=== PATIENT | male | born 1935 | race Hispanic/Latino ===

== ENCOUNTER 2017-09-09 13:58 | Inpatient (IN) | payer OTHER ==
--- NOTE | 2017-09-09 15:52 | RAD REPORT ---
EXAM DESCRIPTION: RAD - Chest Single View - 09/09/2017 3:38 pm CLINICAL HISTORY: Shortness of breath COMPARISON: 07/05/2026 FINDINGS: Portable technique limits examination quality. Calcified granuloma are present in left lung. The lungs are clear of acute infiltrate. The heart is n ormal in size. No displaced fractures. IMPRESSION: No acute intrathoracic process suspected.
--- NOTE | 2017-09-09 16:27 | EKG ---
Test Date: 2017-09-09 Test Time: 15:14:41 Ski Topper: MARCK MEASUREMENT RESULTS: Intervals: Rate: 64 UT: 160 QRSD: 98 QT: 446 QTc: 460 Rutledge: P: 61 UT: 160 QRS: 36 T: 83 INTERPRETIVE STATEMENTS: Normal sinus rhythm Normal ECG Compared to ECG 07/04/2016 10:00:54 No significant changes Electronically Signed On 09-09-17 16:26:39 CDT by Nickolas Jiang
[2017-09-09] MEDS ORDERED: NA CHLORIDE 0.9% 500 ML ONE (17:01)
[2017-09-09 17:22] LABS: Urine Bacteria 20-50 /HPF (NONE SEEN); Urine Culture Reflex Order NOT NEEDED; Urine Mucus NS /HPF (NONE SEEN)
[2017-09-09 17:33] LABS: Absolute Monocytes 0.9 K/uL (0.1-1.3); Absolute Neutrophil 10.3 K/uL (1.8-8.0); Basophils % 0.8 % (0-1.3); Eosinophils % 4.3 % (0-4.4); Lymphocytes % 14.6 % (15.3-44.8); MCH 28.4 pg (27.0-35.0); MCV 88.4 fL (80-100); MPV 7.8 fL (7.6-11.3); Monocytes % 6.7 % (3.3-12.3); RBC Red Blood Cell Count 4.64 M/uL (4.33-5.43)
[2017-09-09 17:36] LABS: Potassium 4.8 mEq/L (3.6-5.0)
[2017-09-09 17:42] LABS: Albumin 3.5 g/dL (3.2-5.5); Bilirubin Direct 0.1 mg/dL (0-0.2); Bilirubin Total 0.4 mg/dL (0.3-1.2); Protein, Total 7.7 g/dL (6.0-8.3)
[2017-09-09 17:58] LABS: Urine Blood 1+ (NEG); Urine Glucose 1+ (NEG); Urine Protein 3+ (NEG)
--- NOTE | 2017-09-09 18:20 | EDPHYS ---
Physician Documentation [facility] Name: Nayla Greenberg Age: 82 yrs Sex: Male : 1935 Arrival Date: 09/09/2017 Time: 14:11 Bed 19 Private MD: ED Physician Ricky Gao HPI: 09/09 18:14 This 82 yrs old Male presents to ER via EMS with complaints of Dizziness. rn 18:14 The patient presents with dizziness. Onset: The symptoms/episode began/occurred this rn morning. Modifying factors: The symptoms are alleviated by nothing, the symptoms are aggravated by movement of head, changing position. Associated signs and symptoms: Pertinent negatives: abdominal pain, chest pain, seizure, syncope, tingling, vomiting. Severity of symptoms: At their worst the symptoms were moderate in the emergency department the symptoms are unchanged. The patient has experienced similar episodes in the past. 18:14 Pt woke up dizzy and lightheaded, felt like was going to pass out, no syncope, [facility] . Historical: - Allergies: 14:00 No Known Allergies; rb1 - Home Meds: 14:00 Lipitor Oral [Active]; rb1 15:20 metformin 1,000 mg oral tab 2 times per day [Active]; Lasix 40 mg oral tab once daily aj1 [Active]; amlodipine 10 mg tab 1 tab once daily [Active]; Vitamin D Oral 400 unit daily [Active]; gabapentin 300 mg oral cap 1 cap at bedtime [Active]; metoprolol tartrate 25 mg Oral tab 0.5 tab 2 times per day [Active]; multivitamin oral oral daily [Active]; - PMHx: 14:00 Diabetes - NIDDM; Hypertension; muscle atrophy; Hyperlipidemia; rb1 - Immunization history:: Adult Immunizations not up to date. - Social history:: Smoking status: Patient/guardian denies using tobacco. - Family history:: not pertinent. - Hospitalizations: : No recent hospitalization is reported. ROS: 18:14 Constitutional: Negative for fever, chills, and weight loss, Eyes: Negative for injury, rn pain, redness, and discharge, Neck: Negative for injury, pain, and swelling, Cardiovascular: Negative for chest pain, palpitations, and edema, Respiratory: Negative for shortness of breath, cough, wheezing, and pleuritic chest pain, Abdomen/GI: Negative for abdominal pain, nausea, vomiting, diarrhea, and constipation, Back: Negative for injury and pain, MS/Extremity: Negative for injury and deformity, Skin: Negative for injury, rash, and discoloration, Neuro: Negative for headache, numbness, tingling, and seizure. Exam: 18:14 Constitutional: This is a well developed, well nourished patient who is awake, alert, rn and in no acute distress. Head/Face: Normocephalic, atraumatic. Eyes: Pupils equal round and reactive to light, extra-ocular motions intact. Lids and lashes normal. Conjunctiva and sclera are non-icteric and not injected. Cornea within normal limits. Periorbital areas with no swelling, redness, or edema. Neck: Trachea midline, no thyromegaly or masses palpated, and no cervical lymphadenopathy. Supple, full range of motion without nuchal rigidity, or vertebral point tenderness. No Meningismus. Cardiovascular: Regular rate and rhythm with a normal S1 and S2. No gallops, murmurs, or rubs. Normal PMI, no JVD. No pulse deficits. Respiratory: Lungs have equal breath sounds bilaterally, clear to auscultation and percussion. No rales, rhonchi or wheezes noted. No increased work of breathing, no retractions or nasal flaring. Abdomen/GI: Soft, non-tender, with normal bowel sounds. No distension or tympany. No guarding or rebound. No evidence of tenderness throughout. MS/ Extremity: Pulses equal, no cyanosis. Neuro: Awake, alert, paraplegic, normal upper strength Vital Signs: 14:00 BP 158 / 71; Pulse 68; Resp 15; Pulse Ox 98% on R/A; rb1 15:09 BP 142 / 69; Pulse 70; Resp 19; Pulse Ox 100% ; aj1 17:16 BP 151 / 80; Pulse 65; Resp 18; Pulse Ox 100% on R/A; aj1 18:15 BP 157 / 79; Pulse 66; Resp 17; Pulse Ox 100% on R/A; aj1 20:14 BP 154 / 73; Pulse 70; Resp 20; Pulse Ox 97% on R/A; aj1 21:23 BP 145 / 85; Pulse 69; Resp 18; Pulse Ox 99% ; aj1 MDM: 15:09 Patient medically screened. rn 18:14 Differential diagnosis: generalized weakness, hypovolemia, idiopathic dizziness, rn near-syncope, UTI. Data reviewed: vital signs, nurses notes, lab test result(s), EKG, radiologic studies, plain films, and as a result, I will admit patient. Counseling: I had a detailed discussion with the patient and/or guardian regarding: the historical points, exam findings, and any diagnostic results supporting the discharge/admit diagnosis, lab results, radiology results, the need for further work-up and treatment in the hospital. Response to treatment: the patient's symptoms have mildly improved after treatment, and as a result, I will admit patient. Admission orders: after a detailed discussion of the patient's condition and case, the admit orders are written by me. 09/09 15:18 Order name: CBC with Diff; Complete Time: 18:09 rn 09/09 15:18 Order name: Basic Metabolic Panel; Complete Time: 18:09 rn 09/09 15:18 Order name: Urine Culture rn 09/09 15:18 Order name: Urine Microscopic Only; Complete Time: 18:09 rn 09/09 15:19 Order name: Hepatic Function; Complete Time: 18:09 rn 09/09 15:19 Order name: Lipase; Complete Time: 18:09 rn 09/09 15:18 Order name: IV Start; Complete Time: 17:14 rn 09/09 15:18 Order name: Urine Dipstick-Ancillary (obtain specimen); Complete Time: 17:14 rn 09/09 15:18 Order name: EKG; Complete Time: 15:18 rn 09/09 15:18 Order name: EKG - Nurse/Tech; Complete Time: 15:23 rn 09/09 15:18 Order name: XRAY Chest (1 view); Complete Time: 16:18 rn 09/09 16:57 Order name: Urine Dipstick--Ancillary (enter results); Complete Time: 18:09 09/09 15:19 Order name: Labs collected and sent; Complete Time: 17:14 rn Administered Medications: 17:13 Drug: NS 0.9% 500 ml Route: IV; Rate: bolus; Site: right hand; aj1 20:17 Follow up: IV Status: Completed infusion; IV Intake: 500ml aj1 20:02 Drug: Rocephin - (cefTRIAXone) 1 grams Route: IVPB; Infused Over: 30 mins; Site: right aj1 hand; 20:17 Follow up: IV Status: Completed infusion; IV Intake: 10ml aj Disposition: 09/09/17 18:19 Hospitalization ordered by Nish Echols for Observation. Preliminary diagnosis are Dehydration, Urinary tract infection, site not specified. - Bed requested for Telemetry/MedSurg (observation). - Status is Observation. aj1 - Condition is Stable. - Problem is new. - Symptoms have improved. UTI on Admission? Yes Signatures: Dispatcher [employer] EDViktoria Merchant RN RN aj1 Sabrina Kaufman RN RN Ricky Bay MD MD rn Barber, Rebecca RN RN rb1 Corrections: (The following items were deleted from the chart) 15:20 14:00 Home Meds: Metformin Oral; rb1 aj 15:20 14:00 Home Meds: Lasix Oral; [place] [id number]
--- NOTE | 2017-09-09 18:20 | ER ---
Nurse's Notes [facility] Name: Nayla Greenberg Age: 82 yrs Sex: Male : 1935 Arrival Date: 09/09/2017 Time: 14:11 Bed 19 Private MD: Diagnosis: Dehydration;Urinary tract infection, site not specified Presentation: 09/09 14:00 Presenting complaint: EMS states: Pt. is a 82 yr. old male from home. When he got up rb1 this morning he felt dizzy. He is a paraplegic. A \\T\\ O x 4, GCS 15. Has history of hypertension, diabetes, and hyperlipidemia; NKA. Pt. did complain of nausea on the ride over here, but is not currently nauseous. SR on EKG with BBB. Denies SOB. BS 283, BP 170/83, P 81, R 16, 98% on RA. Pt. takes Metformin, Lasix, and Lipitor. Transition of care: patient was not received from another setting of care. Onset of symptoms was September 09, 2017. Care prior to arrival: None. 14:00 Method Of Arrival: EMS: [facility] rb1 14:00 Acuity: KAROL 3 rb1 Triage Assessment: 15:20 General: Appears in no apparent distress. comfortable. aj1 Historical: - Allergies: 14:00 No Known Allergies; rb1 - Home Meds: 14:00 Lipitor Oral [Active]; rb1 15:20 metformin 1,000 mg oral tab 2 times per day [Active]; Lasix 40 mg oral tab once daily aj1 [Active]; amlodipine 10 mg tab 1 tab once daily [Active]; Vitamin D Oral 400 unit daily [Active]; gabapentin 300 mg oral cap 1 cap at bedtime [Active]; metoprolol tartrate 25 mg Oral tab 0.5 tab 2 times per day [Active]; multivitamin oral oral daily [Active]; - PMHx: 14:00 Diabetes - NIDDM; Hypertension; muscle atrophy; Hyperlipidemia; rb1 - Immunization history:: Adult Immunizations not up to date. - Social history:: Smoking status: Patient/guardian denies using tobacco. - Family history:: not pertinent. - Hospitalizations: : No recent hospitalization is reported. Screenin:09 Abuse screen: Denies threats or abuse. Denies injuries from another. Nutritional aj1 screening: No deficits noted. Tuberculosis screening: No symptoms or risk factors identified. 20:15 Fall Risk No fall in past 12 months (0 pts). Secondary diagnosis (15 points) impaired aj1 mobility, IV access (20 points). Ambulatory Aid- None/Bed Rest/Nurse Assist (0 pts). Gait- Normal/Bed Rest/Wheelchair (0 pts) Mental Status- Oriented to own ability (0 pts). Total Weiss Fall Scale indicates Low Risk Score (25-44 pts). Fall prevention measures have been instituted. Side Rails Up X 2 Frequent Obs/Assesments occuring Family Present and informed to notify staff if they need to leave bedside As available Patient and Family Educated on Fall Prevention Program and strategies. Assessment: 15:09 General: Appears in no apparent distress. comfortable, Behavior is calm, cooperative, aj1 appropriate for age. Pain: Denies pain. Neuro: Level of Consciousness is awake, alert, obeys commands, Oriented to person, place, time, situation, Paralysis in bilateral leg(s) Patient states it is from "muscle weakness" but he has never received a diagnosis further than that . Speech is normal, Facial symmetry appears normal, Reports dizziness, started when he got out of bed this morning (his son was lifting him in [place] lift). States he is now feeling better. Cardiovascular: Heart tones S1 S2 present Patient's skin is warm and dry. Rhythm is regular. Respiratory: Airway is patent Respiratory effort is even, unlabored, Respiratory pattern is regular, symmetrical, Breath sounds are clear bilaterally. GI: No signs and/or symptoms were reported involving the gastrointestinal system. : No signs and/or symptoms were reported regarding the genitourinary system. EENT: No signs and/or symptoms were reported regarding the EENT system. Derm: No signs and/or symptoms reported regarding the dermatologic system. Skin is pink, warm \\T\\ dry. Musculoskeletal: No signs and/or symptoms reported regarding the musculoskeletal system. 15:14 Reassessment: Spoke with nurse at [facility] who states that the patient's called aj her and told him that he was dizzy and he was advised to come to the emergency room for that reason. 16:15 Reassessment: Patient appears in no apparent distress at this time. No changes from aj previously documented assessment. Patient and/or family updated on plan of care and expected duration. Pain level reassessed. Patient is alert, oriented x 3, equal unlabored respirations, skin warm/dry/pink. 17:15 Reassessment: Patient appears in no apparent distress at this time. No changes from aj1 previously documented assessment. Patient and/or family updated on plan of care and expected duration. Pain level reassessed. Patient is alert, oriented x 3, equal unlabored respirations, skin warm/dry/pink. 18:15 Reassessment: Patient and/or family updated on plan of care and expected duration. Pain aj1 level reassessed. General: Appears in no apparent distress. comfortable, Behavior is calm, cooperative. Pain: Denies pain. Neuro: Level of Consciousness is awake, alert, obeys commands, Oriented to person, place, time, situation, Paralysis in bilateral leg(s) Speech is normal, Facial symmetry appears normal. Cardiovascular: Patient's skin is warm and dry. Respiratory: Airway is patent Respiratory effort is even, unlabored, Respiratory pattern is regular, symmetrical. GI: No signs and/or symptoms were reported involving the gastrointestinal system. : No signs and/or symptoms were reported regarding the genitourinary system. EENT: No signs and/or symptoms were reported regarding the EENT system. Derm: No signs and/or symptoms reported regarding the dermatologic system. Skin is pink, warm \\T\\ dry. Musculoskeletal: No signs and/or symptoms reported regarding the musculoskeletal system. 19:15 Reassessment: Patient appears in no apparent distress at this time. No changes from aj1 previously documented assessment. Patient and/or family updated on plan of care and expected duration. Pain level reassessed. Patient is alert, oriented x 3, equal unlabored respirations, skin warm/dry/pink. 20:07 Reassessment: report given to Alpa walters 20:14 Reassessment: Patient appears in no apparent distress at this time. No changes from aj1 previously documented assessment. Patient and/or family updated on plan of care and expected duration. Pain level reassessed. Patient is alert, oriented x 3, equal unlabored respirations, skin warm/dry/pink. 21:21 Reassessment: Patient appears in no apparent distress at this time. No changes from aj1 previously documented assessment. Patient and/or family updated on plan of care and expected duration. Pain level reassessed. Patient is alert, oriented x 3, equal unlabored respirations, skin warm/dry/pink. Vital Signs: 14:00 BP 158 / 71; Pulse 68; Resp 15; Pulse Ox 98% on R/A; rb1 15:09 BP 142 / 69; Pulse 70; Resp 19; Pulse Ox 100% ; aj1 17:16 BP 151 / 80; Pulse 65; Resp 18; Pulse Ox 100% on R/A; aj1 18:15 BP 157 / 79; Pulse 66; Resp 17; Pulse Ox 100% on R/A; aj1 20:14 BP 154 / 73; Pulse 70; Resp 20; Pulse Ox 97% on R/A; aj1 21:23 BP 145 / 85; Pulse 69; Resp 18; Pulse Ox 99% ; aj1 ED Course: 14:11 Patient arrived in ED. rb1 14:17 Triage completed. rb1 14:33 Viktoria Sanchez, RN is Primary Nurse. aj1 15:09 Ricky Gao MD is Attending Physician. rn 15:09 Patient has correct armband on for positive identification. Bed in low position. Call aj1 light in reach. Side rails up X2. 15:09 No provider procedures requiring assistance completed. aj1 15:20 EKG done, by automated equipment engineer technician. reviewed by Ricky Gao MD. at1 15:21 Arm band placed on. aj1 15:38 X-ray completed. Portable x-ray completed in exam room. Patient tolerated procedure kc2 well. 15:39 XRAY Chest (1 view) In Process Unspecified. EDMS 15:45 Missed attempt(s): 22 gauge in right antecubital area. Bleeding controlled, band aid aj1 applied, catheter tip intact. 18:19 Nish Echols MD is Hospitalizing Provider. rn 20:15 Patient admitted, IV remains in place. aj1 Administered Medications: 17:13 Drug: NS 0.9% 500 ml Route: IV; Rate: bolus; Site: right hand; aj1 20:17 Follow up: IV Status: Completed infusion; IV Intake: 500ml aj1 20:02 Drug: Rocephin - (cefTRIAXone) 1 grams Route: IVPB; Infused Over: 30 mins; Site: right aj1 hand; 20:17 Follow up: IV Status: Completed infusion; IV Intake: 10ml aj1 Intake: 20:17 IV: 10ml; Total: 10ml. aj1 20:17 IV: 500ml; Total: 510ml. aj1 Outcome: 18:19 Decision to Hospitalize by Provider. rn 21:23 Admitted to Med/surg accompanied by tech, via stretcher, room 420. aj1 21:23 Condition: stable 21:23 Discharge instructions given to patient, Instructed on the need for admit, Demonstrated understanding of instructions. 21:24 Patient left the ED. aj1 Signatures: Dispatcher [employer] EDViktoria Merchant RN RN aj1 Mohini Olivarez RN RN Ricky Rodriguez MD MD rn gonzales, Amanda, geographic information scientist EKG Tat1 Juanita Garcia, RN RN rb1 Vicky Torrez2 Corrections: (The following items were deleted from the chart) 15:20 14:00 Home Meds: Metformin Oral; rb1 aj1 15:20 14:00 Home Meds: Lasix Oral; rb1 aj1
[2017-09-09] MEDS ORDERED: CEFTRIAXONE/SWI 1gm 1 GM/10 ML SYR ONE (19:43)
[2017-09-09] MEDS ORDERED: ONDANSETRON 4 MG/2 ML VIAL IV PRN (22:19)
[2017-09-09] MEDS: NA CHLORIDE 0.9% 1,000 ML IV SCH (23:53)
[2017-09-10 06:44] LABS: Absolute Monocytes 1.9 K/uL (0.1-1.3); Absolute Neutrophil 13.5 K/uL (1.8-8.0); Basophils % 1.3 % (0-1.3); Eosinophils % 7.6 % (0-4.4); Hematocrit 49.6 % (39.6-49.0); Lymphocytes % 14.9 % (15.3-44.8); MCH 28.5 pg (27.0-35.0); MCV 87.8 fL (80-100); MPV 8.4 fL (7.6-11.3); Monocytes % 9.5 % (3.3-12.3); RBC Red Blood Cell Count 5.65 M/uL (4.33-5.43)
[2017-09-10 06:47] LABS: Potassium 4.8 mEq/L (3.6-5.0)
[2017-09-10] MEDS ORDERED: GLUCAGON 1 MG/VIAL IM PRN (08:48)
[2017-09-10] MEDS ORDERED: D50W 25 GM/50 ML SYRINGE IV PRN (08:48)
--- NOTE | 2017-09-10 08:57 | P.HP ---
Certification for Inpatient Patient admitted to: Observation With expected LOS: <2 Midnights Practitioner: I am a practitioner with admitting privileges, knowledge of patient current condition, hospital course, and medical plan of care. Services: Services provided to patient in accordance with Admission requirements found in Title 42 Section 412.3 of the Code of Federal Regulations Patient History Date of Service: 09/09/17 Reason for admission: near syncope episode History of Present Illness: Mr Greenberg is an 82 years old male with multiple medical problems including DM II , HTN, muscle atrophy, who was at home yesterday when he was trying to stand up from his bed, and become dizzy, had nausea, and felt that almost passed out. He denied any fever or chills. No chest pain, palpitations or SOB prior the episode. He satates that it happened before several times, but he never addressed this problem with his PCP. At the time of my encounter the patient was in non-distress. He has not repeated similar episodes since arrived to the hospital. He recently finish a course of antibiotics for UTI. Lab work was remarkable for Leukocytosis, UA abnormal consistent with UTI, which may be responsible for his leukocytosis, consider also leukemoid reaction. CXR showed no acute abnormalities. Allergies adhesive tape Adverse Reaction (Intermediate, Verified 07/04/16 15:25) Rash No Allergy (Uncoded 07/09/17 23:14) Unknown No Known Allergies Allergy (Uncoded 09/09/17 21:28) Unknown Home Medications: Metoprolol Tartrate [Lopressor*] 25 mg PO BID 05/02/15 Multivitamin [Multivitamins] 1 each PO DAILY 07/05/15 Cholecalciferol (Vitamin D3) [Vitamin D 400 IU TAB*] 1,200 unit PO DAILY Furosemide [Lasix] 40 mg PO DAILY 07/04/16 Gabapentin [Gralise] 300 mg PO BEDTIME 07/04/16 Lisinopril 40 mg PO DAILY 07/04/16 Metformin HCl [Glucophage] 1,000 mg PO BID 07/04/16 Amlodipine [Norvasc*] 10 mg PO DAILY #30 tab 07/06/16 Amox/Clavulanate [Augmentin 875-125 Tab*] 875 mg PO BID #10 tab 07/06/16 - Past Medical/Surgical History Has patient received pneumonia vaccine in the past: No Diabetic: Yes -: Hyperlipidemia -: HTN -: NIDDM -: bladder infection -: prostate problem -: Myasthenia gravis -: Peripheral neuropathy -: Stan cataracts -: broken leg 2005 -: finger surgery -: prostate surgery - Family History Father -: Heart disease Mother -: Hypertension Sister -: Hypertension, Diabetes, Cancer, Kidney disease Brother -: Heart disease, Cancer - Social History Smoking Status: Never smoker Alcohol use: No CD- Drugs: No Caffeine use: Yes Place of Residence: Home Review of Systems 10-point ROS is otherwise unremarkable Physical Examination - Vital Signs Temperature: 97.8 F Blood Pressure: 154/79 Pulse: 94 Respirations: 18 Pulse Ox (%): 99 - Physical Exam General: Alert, In no apparent distress HEENT: Atraumatic, PERRLA, Mucous membr. moist/pink, EOMI, Sclerae nonicteric Neck: Supple, 2+ carotid pulse no bruit, No LAD, Without JVD or thyroid abnormality Respiratory: Clear to auscultation bilaterally, Normal air movement Cardiovascular: Regular rate/rhythm, Normal S1 S2 Gastrointestinal: Normal bowel sounds, No tenderness Musculoskeletal: No tenderness Integumentary: No rashes Neurological: Normal gait, Normal speech, Normal tone, Normal affect Lymphatics: No axilla or inguinal lymphadenopathy - Studies Laboratory Data (last 24 hrs) 09/09/17 17:00: Sodium 133 L, Potassium 4.8, BUN 53 H, Creatinine 2.07 H, Glucose 259 H, Total Bilirubin 0.4, AST 29, ALT 27, Alkaline Phosphatase 139 H, Lipase 45 09/09/17 17:00: WBC 14.0 H, Hgb 13.2 L, Hct 41.0, Plt Count 437 H Assessment and Plan - Problems (Diagnosis) (1) Vasovagal near syncope Current Visit: Yes Status: Acute (2) Diabetes Current Visit: No Status: Acute Qualifiers: Diabetes mellitus type: type 2 Diabetes mellitus belt knife feeder insulin use: without belt knife feeder use Diabetes mellitus complication status: with unspecified complications Qualified Code(s): E11.8 - Type 2 diabetes mellitus with unspecified complications (3) HTN (hypertension) Current Visit: No Status: Acute Qualifiers: Hypertension type: essential hypertension Qualified Code(s): I10 - Essential (primary) hypertension (4) Leukocytosis Onset Date: 03/13/15 Current Visit: No Status: Acute Qualifiers: Leukocytosis type: unspecified Qualified Code(s): D72.829 - Elevated white blood cell count, unspecified (5) Urinary tract infectious disease Onset Date: 05/03/15 Current Visit: No Status: Acute Qualifiers: Urinary tract infection type: acute cystitis Hematuria presence: without hematuria Qualified Code(s): N30.00 - Acute cystitis without hematuria - Plan The patient will be admitte under observation due to near syncope episode. He is asymptomatic at this moment. likely vasovagal episodes. Will continue cardiac monitoring. Start IV Rocephin for UTI. - Advance Directives Does patient have a Living Will: No Does patient have a Durable POA for Healthcare: No - Code Status/Comfort Care Code Status Assessed: Yes Code Status: Full Code
[2017-09-10] MEDS ORDERED: CEFTRIAXONE 1 GM/NS 50 ML 1 GM/50 ML BAG IV SCH (09:00)
[2017-09-10 09:31] LABS: Blood Morphology Comment NOT SEEN (NOT SEEN); Platelet Estimate ADEQ
[2017-09-10] MEDS: NA CHLORIDE 0.9% 1,000 ML IV SCH ×3 (11:42→21:34)
[2017-09-10] MEDS: INSULIN -REGULAR HUMAN 50 UNIT/0.5 ML ML SQ SCH ×3 (12:22→21:31)
--- NOTE | 2017-09-10 13:53 | P.PN ---
Subjective Date of Service: 09/10/17 Chief Complaint: near syncope episode Patient seen and examined at bedside with RN. Case reviewed. Patient currently has no complaints to offer. Alert and oriented x3. [facility] And would like to be discharged before that. Review of Systems General: As per HPI Physical Examination - Vital Signs Temperature: 97.8 F Blood Pressure: 153/70 Pulse: 82 Respirations: 18 Pulse Ox (%): 98 - Physical Exam General: Alert, Obese HEENT: Atraumatic Neck: Supple Respiratory: Clear to auscultation bilaterally, Normal air movement Cardiovascular: Regular rate/rhythm, Normal S1 S2 Gastrointestinal: Normal bowel sounds, Soft and benign, Non-distended, No tenderness Musculoskeletal: No tenderness Integumentary: Other (Flaking of the skin BL UE and LE. ) Neurological: Normal speech, Normal tone, Normal affect Lymphatics: No axilla or inguinal lymphadenopathy - Studies Laboratory Data (last 24 hrs) 09/10/17 05:44: Sodium 134 L, Potassium 4.8, BUN 49 H, Creatinine 1.63 H, Glucose 173 H 09/10/17 05:44: WBC 20.2 H* D, Hgb 16.1 D, Hct 49.6 H D, Plt Count 320 D 09/09/17 17:00: Sodium 133 L, Potassium 4.8, BUN 53 H, Creatinine 2.07 H, Glucose 259 H, Total Bilirubin 0.4, AST 29, ALT 27, Alkaline Phosphatase 139 H, Lipase 45 09/09/17 17:00: WBC 14.0 H, Hgb 13.2 L, Hct 41.0, Plt Count 437 H Medications List Reviewed: Yes Assessment & Plan - Problems (Diagnosis) (1) UTI (urinary tract infection) Onset Date: 09/10/17 Current Visit: Yes Status: Acute Plan: UA + for UTI -Culture pending for now. So far growing Gram + Cocci -Currently on Rocephin will switch to Levaquin at this time. -F/u with Culture ksenia. Qualifiers: Urinary tract infection type: acute cystitis Hematuria presence: without hematuria Qualified Code(s): N30.00 - Acute cystitis without hematuria (2) Diabetes Onset Date: 09/10/17 Current Visit: Yes Status: Chronic Qualifiers: Diabetes mellitus type: type 2 Diabetes mellitus rn long term care insulin use: without rn long term care use Diabetes mellitus complication status: with unspecified complications Qualified Code(s): E11.8 - Type 2 diabetes mellitus with unspecified complications (3) HTN (hypertension) Onset Date: 09/10/17 Current Visit: Yes Status: Chronic Qualifiers: Hypertension type: essential hypertension Qualified Code(s): I10 - Essential (primary) hypertension Discharge Plan: Home Plan to discharge in: 48 Hours - Code Status/Comfort Care Code Status Assessed: Yes Critical Care: No
[2017-09-10] MEDS ORDERED: Levofloxacin500mg IV 500 MG/100 ML BAG IV SCH (14:00)
[2017-09-10] MEDS ORDERED: CEFTRIAXONE/SWI 1gm 1 GM/10 ML SYR IV SCH (18:00)
[2017-09-11] MEDS: HYDRALAZINE HCL 20 MG/ML VIAL IV PRN ×2 (01:06→14:32)
[2017-09-11] MEDS: NA CHLORIDE 0.9% 1,000 ML IV SCH ×2 (06:20→15:21)
[2017-09-11] MEDS: INSULIN -REGULAR HUMAN 50 UNIT/0.5 ML ML SQ SCH ×4 (07:30→21:24)
[2017-09-11] MEDS ORDERED: PNEUMOCOCCAL VACCINE 0.5 ML IMVAC ONE (08:00)
[2017-09-11] MEDS: VANCOMYCIN 1.75 GM in NA CHLORIDE 0.9% 500 ML IVPB SCH (12:28)
--- NOTE | 2017-09-11 15:46 | P.PN ---
Subjective Date of Service: 09/11/17 Chief Complaint: near syncope episode Patient seen and examined at bedside with RN. Case reviewed. Patient currently has no complaints to offer. Alert and oriented x3. Review of Systems 10-point ROS is otherwise unremarkable Physical Examination - Vital Signs Temperature: 98.3 F Blood Pressure: 223/90 Pulse: 103 Respirations: 18 Pulse Ox (%): 98 - Physical Exam General: Alert, In no apparent distress HEENT: Atraumatic, PERRLA, EOMI Neck: Supple, JVD not distended Respiratory: Clear to auscultation bilaterally, Normal air movement Cardiovascular: Regular rate/rhythm, Normal S1 S2 Gastrointestinal: Normal bowel sounds, No tenderness Musculoskeletal: No tenderness Integumentary: No rashes Neurological: Normal speech, Normal tone, Normal affect Lymphatics: No axilla or inguinal lymphadenopathy - Studies Microbiology Data (last 24 hrs): 09/09/17 16:52 Catheterized Urine [place] Count - Final >100,000 CFU/ML. 09/09/17 16:52 Catheterized Urine - Final Meth Resistant Staph Aureus Medications List Reviewed: Yes Assessment & Plan - Problems (Diagnosis) (1) UTI (urinary tract infection) Onset Date: 09/10/17 Current Visit: Yes Status: Acute Plan: UA + for UTI -Culture + for MRSA. Sensitive to VANC -PICC line for IV vanc and will be dc to SNF for completion of IV Abx. Qualifiers: Urinary tract infection type: acute cystitis Hematuria presence: without hematuria Qualified Code(s): N30.00 - Acute cystitis without hematuria (2) Diabetes Onset Date: 09/10/17 Current Visit: Yes Status: Chronic Qualifiers: Diabetes mellitus type: type 2 Diabetes mellitus detention insulin use: without detention use Diabetes mellitus complication status: with unspecified complications Qualified Code(s): E11.8 - Type 2 diabetes mellitus with unspecified complications (3) HTN (hypertension) Onset Date: 09/10/17 Current Visit: Yes Status: Chronic Qualifiers: Hypertension type: essential hypertension Qualified Code(s): I10 - Essential (primary) hypertension
[2017-09-11] MEDS: ACETAMINOPHEN 500 MG TAB PO PRN (16:13)
[2017-09-12] MEDS: NA CHLORIDE 0.9% 1,000 ML IV SCH ×2 (01:00→06:47)
[2017-09-12 05:26] LABS: Magnesium 1.6 mg/dL (1.8-2.5); Potassium 4.2 mEq/L (3.6-5.0)
[2017-09-12] MEDS ORDERED: MAGNESIUM SULFATE 1 gm IVPB 1 GM/100 ML BAG IV ONE (07:00)
[2017-09-12] MEDS: INSULIN -REGULAR HUMAN 50 UNIT/0.5 ML ML SQ SCH ×4 (07:30→22:00)
[2017-09-12] MEDS: HYDRALAZINE HCL 20 MG/ML VIAL IV PRN (10:08)
--- NOTE | 2017-09-12 10:15 | P.PN ---
Subjective Date of Service: 09/12/17 Chief Complaint: near syncope episode Patient seen and examined at bedside with RN. Case reviewed. Patient currently has no complaints to offer. Alert and oriented x3. Approved to Go to [facility] AM for terminologist IV abx. Will get PICC line today. Review of Systems 10-point ROS is otherwise unremarkable Physical Examination - Vital Signs Temperature: 98.1 F Blood Pressure: 194/87 Pulse: 98 Respirations: 20 Pulse Ox (%): 99 - Physical Exam General: Alert, In no apparent distress HEENT: Atraumatic, PERRLA, EOMI Neck: Supple, JVD not distended Respiratory: Clear to auscultation bilaterally, Normal air movement Cardiovascular: Regular rate/rhythm, Normal S1 S2 Gastrointestinal: Normal bowel sounds, No tenderness Musculoskeletal: No tenderness Integumentary: No rashes Neurological: Normal speech, Normal tone, Normal affect Lymphatics: No axilla or inguinal lymphadenopathy - Studies Microbiology Data (last 24 hrs): 09/09/17 16:52 Catheterized Urine [place] Count - Final >100,000 CFU/ML. 09/09/17 16:52 Catheterized Urine - Final Meth Resistant Staph Aureus Medications List Reviewed: Yes Assessment & Plan - Problems (Diagnosis) (1) UTI (urinary tract infection) Onset Date: 09/10/17 Current Visit: Yes Status: Acute Plan: UA + for UTI -Culture + for MRSA. Sensitive to VANC -PICC line for IV vanc and will be dc to SNF for completion of IV Abx. -Accepted at [facility] to be DC ksenia. 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
[2017-09-12 10:48] LABS: Absolute Neutrophil 6.2 K/uL (1.8-8.0); Basophils % 1.1 % (0-1.3); Eosinophils % 8.2 % (0-4.4); Hematocrit 36.5 % (39.6-49.0); Lymphocytes % 10.8 % (15.3-44.8); MCH 29.5 pg (27.0-35.0); MCV 86.7 fL (80-100); MPV 7.4 fL (7.6-11.3); RBC Red Blood Cell Count 4.21 M/uL (4.33-5.43)
[2017-09-12 11:18] LABS: Potassium 4.1 mEq/L (3.6-5.0)
[2017-09-12 11:21] LABS: Albumin 2.8 g/dL (3.2-5.5); Bilirubin Total 0.3 mg/dL (0.3-1.2); Protein, Total 6.7 g/dL (6.0-8.3)
[2017-09-12] MEDS: ACETAMINOPHEN 500 MG TAB PO PRN ×2 (12:04→22:04)
--- NOTE | 2017-09-12 18:35 | RAD REPORT ---
EXAM DESCRIPTION: RAD - Chest Single View - 09/12/2017 6:20 pm CLINICAL HISTORY: Device placement PICC line placement COMPARISON: September 09, 2017 FINDINGS: A PICC line has been inserted with its tip in the mid superior vena cava. The lungs appear clear of acute infiltrate. Calcified lung granulomas are present. The heart is altagracia l size. IMPRESSION: PICC line with its tip in the mid superior vena cava
[2017-09-13] MEDS: VANCOMYCIN 1.75 GM in NA CHLORIDE 0.9% 500 ML IVPB SCH (00:16)
[2017-09-13 01:44] VITALS: O2SAT 99
[2017-09-13 05:23] LABS: Absolute Lymphocytes (CBC) 1.4 K/uL (0.7-4.9); Absolute Neutrophil 5.4 K/uL (1.8-8.0); Basophils % 1.2 % (0-1.3); Hematocrit 31.3 % (39.6-49.0); MCH 29.3 pg (27.0-35.0); MCV 85.9 fL (80-100); MPV 7.4 fL (7.6-11.3); Monocytes % 12.1 % (3.3-12.3); RBC Red Blood Cell Count 3.64 M/uL (4.33-5.43)
[2017-09-13 05:35] LABS: Albumin 2.4 g/dL (3.2-5.5); Bilirubin Total 0.5 mg/dL (0.3-1.2); Magnesium 1.7 mg/dL (1.8-2.5); Protein, Total 5.2 g/dL (6.0-8.3)
[2017-09-13 07:20] VITALS: BMI 33.9
[2017-09-13] MEDS: INSULIN -REGULAR HUMAN 50 UNIT/0.5 ML ML SQ SCH ×2 (07:30→11:49)
[2017-09-13] MEDS ORDERED: MAGNESIUM SULFATE 1 gm IVPB 1 GM/100 ML BAG IV ONE (08:00)
[2017-09-13 12:06] VITALS: BP 151/67; TEMP 99.1
--- NOTE | 2017-09-14 12:43 | DS ---
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 2.Diabetes mellitus. 3.Hypertension. 4.Vasovagal near-syncope. 5.? sepsis. 6.Anemia. Consult: None. Procedure: 1.Chest x-ray. 2.PICC line placement. History Of Present Illness: Please refer to Dr. Nugent's history and physical exam. Hospital Course: Initially, the patient presented with dizziness, vasovagal near-syncope. In the ER , he was evaluated, and found to have leukocytosis, and UA was positive for MRSA. The patient mitchell y completed a course of antibiotic as an outpatient basis but apparently he did not have good respons e to that. Chest x-ray was negative. Upon admission, the patient was placed on antibiotics and his white blood cells went down from 20 to 8.7. His urine culture showed MRSA which was sensitive to van comycin. Dr. Perdomo placed a PICC line, and she decided to put the patient on vancomycin for total of 10 days given his recurrent UTI, so I will discharge the patient on 1 g every 24 hours. The patient was getting famotidine 5 every 66 hours, but I do not think that is reasonable at the snf. I would advice strongly to snf to repeat a trough and snf pharmacy to adjust the vancomycin dose, and that to follow closely. The patient was continued on his anti-blood pressure. He was placed on insulin sliding scale as well while he is inpatient. He will be discharged today in stable condition. Discharge Disposition: To the rehab center. Discharge Condition: Stable. Discharge Diet: 1800-diabetic ADA. Discharge Followup: With primary care physician in 1 week to make sure his UTI is resolved and pharm acy to follow up the vancomycin dose. Discharge Medication: Vancomycin 1 g once a day IV through the PICC line for 8 more days, Norvasc 10 mg orally once a day, vitamin D3 1200 mg once a day, Lasix 40 mg once a day, Neurontin 300 mg at bed time, lisinopril 40 mg once a day, metformin 1000 mg twice a day, metoprolol 25 mg twice a day, multi vitamin as before. Discharge Physical Examination: Vital Signs: Today, showed blood pressure is 151/67, respiratory ra te 18, pulse 92, temperature is 99.1. The patient is saturating on room air 99%. General: He is alert and oriented x3. Does not look in any distress. HEENT: Atraumatic, normocephalic. PERRLA. Oral mucosa is moist. Neck: Supple. No JVD. No carotid bruits. Chest: Clear to auscultation. Good air entry. Heart: Regular rate and rhythm. S1, S2 normal. No gallop or murmur. Abdomen: Soft, nontender. No masses. No hepatosplenomegaly. Positive bowel sounds. Extremities: No clubbing, cyanosis, or edema. No calf tenderness. Neurologic: Deferred. MT/MODL Voice ID: [id number] Report ID: [id number]
== END 2017-09-13 16:25 | DRG 872 ==
LOC: ER 13:58 → ERHOLD 18:19 → 4TH 20:36 → OBSVTOIN 09-10 10:03
PROVIDERS: ADMIT Internal Medicine; ATTEND Internal Medicine
PROC: 02HV33Z Insertion of Infusion Device into Superior Vena Cava, Percutaneous Approach (ICD-10-PCS; principal; 2017-09-12)
DX: A41.9 Sepsis, unspecified organism (principal); N30.00 Acute cystitis without hematuria; B95.62 Methicillin resistant Staphylococcus aureus infection as the cause of diseases classified elsewhere; E11.9 Type 2 diabetes mellitus without complications; I10 Essential (primary) hypertension; D64.9 Anemia, unspecified; E78.5 Hyperlipidemia, unspecified
CPT/HCPCS: 36415; 71045; 80048; 80053; 80076; 80202; 81003; 81015; 82565; 82962; 83690; 83735; 85025; 87040; 87077; 87086; 87088; 87186; 93005; 96361; 96374; 99285; J0360; J0696; J2405; J3475; J7030

== ENCOUNTER 2017-11-17 23:57 | Emergency (ER) | payer OTHER ==
[2017-11-18] MEDS ORDERED: NA CHLORIDE 0.9% 250 ML ONE (00:44)
[2017-11-18] MEDS ORDERED: VANCOMYCIN 1 GM/250 ML BAG ONE (00:45)
[2017-11-18] MEDS ORDERED: FUROSEMIDE 40 MG/4 ML VIAL ONE (00:48)
[2017-11-18 01:02] LABS: Absolute Lymphocytes (CBC) 1.7 K/uL (0.7-4.9); Absolute Neutrophil 8.5 K/uL (1.8-8.0); Basophils % 0.5 % (0-1.3); Hematocrit 33.2 % (39.6-49.0); MCH 28.7 pg (27.0-35.0); MCV 90.1 fL (80-100); MPV 8.1 fL (7.6-11.3); RBC Red Blood Cell Count 3.69 M/uL (4.33-5.43)
[2017-11-18] MEDS ORDERED: ATROPINE SULF 1 MG/10 ML SYR IV ONE ×2 (01:04→03:18)
[2017-11-18 01:07] LABS: Protime INR 1.06
[2017-11-18] MEDS ORDERED: DOPAMINE/D5W 400 MG/250 ML BAG IV ONE (01:25)
[2017-11-18 01:28] LABS: Albumin 2.9 g/dL (3.4-5.0); Bilirubin Direct 0.1 mg/dL (0-0.2); Bilirubin Total 0.2 mg/dL (0.2-1.0); CKMB Creatine Kinase MB 5.7 ng/mL (0.3-3.6); Magnesium 2.3 mg/dL (1.8-2.4); Protein, Total 6.9 g/dL (6.4-8.2)
[2017-11-18 01:29] LABS: Potassium 7.8 mmol/L (3.5-5.1)
[2017-11-18] MEDS ORDERED: D50W 25 GM/50 ML SYRINGE IV ONE (01:35)
[2017-11-18] MEDS ORDERED: SODIUM BICARB 50 MEQ/50ML VIAL ONE (01:35)
[2017-11-18] MEDS ORDERED: INSULIN -REGULAR HUMAN 50 UNIT/0.5 ML ML ONE (01:35)
[2017-11-18] MEDS ORDERED: ALBUTEROL 2.5 MG/3 ML NEB SOL ONE (01:35)
[2017-11-18] MEDS ORDERED: Caclcium Chloride 10% INJ SYR IV ONE ×2 (01:35→03:30)
[2017-11-18] MEDS ORDERED: PIPER/TAZO/NS 3.375gm 3.375 GM/100 ML BAG ONE (01:57)
[2017-11-18 02:15] LABS: Arterial Blood Carboxyhemoglob 0.9 % (0-1.5); Blood Gas Oxyhemoglobin 95.6 % (94-97); Blood O2 Saturation 97.5 % (92-98.5)
--- NOTE | 2017-11-18 02:24 | ER ---
Nurse's Notes [facility] Name: Nayla Greenberg Age: 82 yrs Sex: Male : 1935 Arrival Date: 11/18/2017 Time: 00:08 Bed 2 Private MD: Diagnosis: Hyperkalemia;Shortness of breath;Pulmonary edema;Anasarca;Bradycardia, unspecified Presentation: 11/18 00:12 Presenting complaint: EMS states: Called to patient with bilateral arm swelling and lp1 fluid leaking from arms; Patient states trouble breathing and had not been able to urinate. Transition of care: patient was not received from another setting of care. Onset of symptoms was November 18, 2017. Risk Assessment: Do you want to hurt yourself or someone else? Patient reports no desire to harm self or others. Initial Sepsis Screen: Does the patient meet any 2 criteria? No. Patient's initial sepsis screen is negative. Does the patient have a suspected source of infection? No. Patient's initial sepsis screen is negative. Care prior to arrival: None. 00:12 Method Of Arrival: EMS: [facility] lp1 00:12 Acuity: KAROL 2 lp1 Historical: - Allergies: 00:17 No Known Allergies; lp1 - Home Meds: 00:17 amlodipine 10 mg tab 1 tab once daily [Active]; gabapentin 300 mg Oral cap 1 cap at lp1 bedtime [Active]; Lasix 40 mg Oral tab once daily [Active]; Lipitor Oral [Active]; metformin 1,000 mg Oral tab 2 times per day [Active]; metoprolol tartrate 25 mg Oral tab 0.5 tab 2 times per day [Active]; multivitamin Oral daily [Active]; Vitamin D Oral 400 unit daily [Active]; - PMHx: 00:17 Diabetes - NIDDM; Hyperlipidemia; Hypertension; muscle atrophy; Paralysis; lp1 - Immunization history:: Adult Immunizations up to date. - Social history:: Smoking status: Patient/guardian denies using tobacco. - Ebola Screening: : No symptoms or risks identified at this time. Screenin:17 Abuse screen: Denies threats or abuse. Denies injuries from another. Nutritional lp1 screening: No deficits noted. Tuberculosis screening: No symptoms or risk factors identified. Fall Risk Total Weiss Fall Scale indicates High Risk Score (45 or more points). Fall prevention measures have been instituted. Side Rails Up X 2 Frequent Obs/Assessments Occuring As available patient and family educated on Fall Prevention Program and Strategies. Assessment: 00:14 General: Appears in no apparent distress. uncomfortable, obese, unkempt, Behavior is ao calm, drowsy, listless. Pain: Denies pain. Pain does not radiate. Neuro: Level of Consciousness is awake, confused, lethargic, listless, Oriented to person, place, time, situation, Moves all extremities. Weakness. Cardiovascular: Capillary refill is > 3 seconds Patient's skin is warm and dry. Respiratory: Airway is patent Respiratory effort is even, unlabored, Respiratory pattern is regular, symmetrical. GI: Abdomen is obese. : No signs and/or symptoms were reported regarding the genitourinary system. EENT: No signs and/or symptoms were reported regarding the EENT system. Derm: Skin has blisters on Hands has skin tears on Right upper arm Skin is pink, warm \T\ dry. Skin temperature is warm. Musculoskeletal: Swelling present in right arm, left arm, right leg and left leg. 01:10 Reassessment: Patient appears in no apparent distress at this time. Patient and/or ao family updated on plan of care and expected duration. Pain level reassessed. Patient transferred to trauma pot due to HR. 01:30 Reassessment: Patient appears in no apparent distress at this time. MD and DIRECTOR BIOLOGY at aa1 bedside for central line placement. Dopamine drip and hyperkalemia protocol initiated. 02:00 Reassessment: Patient appears in no apparent distress at this time. Patient is alert, aa1 oriented x 3, equal unlabored respirations, skin warm/dry/pink. Pt reports SOB greatly improved Patient denies pain at this time. Patient states symptoms have improved. 02:51 Reassessment: Patient appears in no apparent distress at this time. Patient and/or aa1 family updated on plan of care and expected duration. Pain level reassessed. Patient is alert, oriented x 3, equal unlabored respirations, skin warm/dry/pink. Report given to JR Ethan RN at [facility]. Pt awaiting transfer. 03:00 Reassessment: Per MD, increase Dopamine drip to 10 mcg/kg/min. aa1 03:30 Reassessment: Patient appears in no apparent distress at this time. Patient is alert, aa1 oriented x 3, equal unlabored respirations, skin warm/dry/pink. [facility] present for transport. 04:14 Reassessment: Patient left via EMS. VS WNL. ao Vital Signs: 00:11 BP 102 / 40; Pulse 63; Resp 19; Temp 98.2(O); Pulse Ox 93% on R/A; Weight 99.79 kg; lp1 Height 5 ft. 8 in. (172.72 cm); 01:30 BP 81 / 62; Pulse 30; Resp 20; Pulse Ox 99% on BiPAP; aa1 01:46 BP 119 / 42; Pulse 49; Resp 22; Pulse Ox 100% on BiPAP; aa1 02:40 BP 121 / 51; Pulse 44; Resp 22; Pulse Ox 97% on BiPAP; Pain 0/10; aa1 03:13 BP 109 / 73; Pulse 45; Resp 20; Pulse Ox 94% on BiPAP; Pain 0/10; aa1 03:32 BP 137 / 52; Pulse 53; Resp 20; Pulse Ox 98% on BiPAP; Pain 0/10; aa1 04:10 BP 127 / 57; Pulse 43; Resp 20; Pulse Ox 98% 3 lpm ; Pain 0/10; ao 00:11 Body Mass Index 33.45 (99.79 kg, 172.72 cm) lp1 ED Course: 00:08 Patient arrived in ED. lp1 00:08 [facility] snw 00:08 Ricky Gao MD is Attending Physician. snw 00:12 Arm band placed on right wrist. lp1 00:15 Triage completed. lp1 00:18 Patient has correct armband on for positive identification. Bed in low position. Side lp1 rails up X2. silver steward on. Pulse ox on. NIBP on. 00:39 Chandu Spence RN is Primary Nurse. ao 00:41 X-ray completed. Portable x-ray completed in exam room. Patient tolerated procedure kw well. 00:44 XRAY Chest (1 view) In Process Unspecified. EDMS 01:10 Inserted saline lock: 20 gauge in right antecubital area, using aseptic technique. ao ,using aseptic technique. By Dr Gao. 01:45 Jernigan cath inserted, using sterile technique, 16 Fr., by me, balloon inflated, to rv gravity drainage. 01:57 Assisted provider with central line placement. Set up central line tray. Triple lumen ao line placed in right femoral. Line placed by Ricky Gao MD Placement verified by blood return, Dressed with 4X4s, Tape, Tegaderm, Patient tolerated well. 02:06 initiated transfer with [facility] with product safety coordinator. She will call her laundry housekeeper to check bed availability. 02:[address] Mccain from [facility] for patient transfer consultation. eb 02:27 administrative approval given by Nhi Davis , Accepting Doctor is Dr. Gilmar Mccain. eb Report is to be called to the transfer center at [phone]. pt is going to 6[facility] bed 9 at [facility]. 02:54 Patient transferred, IV remains in place. aa1 Administered Medications: 00:46 Drug: NS 0.9% 250 ml Route: IV; Rate: bolus; Site: left jugular; ao 04:05 Follow up: IV Status: Order to discontinue infusion; IV Intake: 40ml ao 00:55 Drug: Lasix 40 mg Route: IVP; Site: right antecubital; ao 03:05 Follow up: Response: No change in condition; No change in condition; no urine output aa1 01:20 Drug: Atropine 1 mg {Note: By ALEX Huang.} Route: IVP; Site: right antecubital; ao 01:30 Follow up: Response: Cardiac rhythm is unchanged aa1 01:26 Drug: Dopamine drip 5 mcg/kg/min - (DOPamine 400 mg, D5W 250 ml) Route: IV; Rate: aa1 calculated rate; Site: left antecubital; 03:01 Follow up: Rate change 10 mcg/kg/min aa1 03:04 Follow up: IV Status: Infusion continued upon admission aa1 01:32 Drug: Calcium Chloride 1 grams Route: IVP; Site: left jugular; aa1 03:06 Follow up: Response: No adverse reaction; No adverse reaction; given for hyperkalemia aa1 04:06 Follow up: Response: No adverse reaction ao 01:33 Drug: D50W 50 ml Route: IVP; Site: right femoral; aa1 03:07 Follow up: Response: No adverse reaction; No adverse reaction; given for hyperkalemia aa1 01:34 Drug: Insulin Regular Human 10 units {Co-Signature: ericka (Chandu Spence RN).} Route: IVP; aa1 Site: right femoral; 03:08 Follow up: Response: No adverse reaction; No adverse reaction; given for hyperkalemia aa1 01:35 Drug: Sodium Bicarbonate 1 amp Route: IVP; Site: right femoral; aa1 04:07 Follow up: Response: No adverse reaction ao 01:36 Drug: Albuterol 2.5 mg Route: Inhalation; aa1 01:36 Drug: Albuterol 2.5 mg Route: Inhalation; aa1 01:36 Drug: Albuterol 2.5 mg Route: Inhalation; aa1 01:36 Drug: Sodium Bicarbonate 1 amp Route: IVP; Site: right femoral; aa1 04:05 Follow up: Response: No adverse reaction ao 01:48 Not Given (Other Intervention Used): Calcium Gluconate 2 grams IVPB once over 60 mins; aa1 (mix in NS 100 mL) 01:51 Drug: vancoMYCIN 1 grams Route: IVPB; Infused Over: 2 hrs; Site: right antecubital; ao 04:06 Follow up: IV Status: Completed infusion; IV Intake: 250ml ao 01:52 CANCELLED (Duplicate Order): Albuterol 2.5 mg Inhalation every 20 minutes x3 aa1 01:52 CANCELLED (Duplicate Order): Sodium Bicarbonate 1 amp IVP once; (50 mL); equals 50 mEq aa1 01:53 CANCELLED (Duplicate Order): Calcium Chloride 10% 10 ml IVP once aa1 01:58 Drug: Zosyn 3.375 grams Route: IVPB; Infused Over: 60 mins; Site: left antecubital; ao 02:41 Follow up: IV Status: Completed infusion aa1 03:18 Drug: Atropine 0.5 mg Route: IVP; Site: right femoral; aa1 03:30 Follow up: Response: No adverse reaction; Cardiac rhythm changed aa1 03:31 Drug: Calcium Chloride 1 grams Route: IVP; Site: right femoral; aa1 04:04 Follow up: Response: No adverse reaction ao Point of Care Testing: Blood Glucose: 01:46 Blood Glucose: 272 mg/dL; rv 02:40 Blood Glucose: 210 mg/dL; aa1 03:36 Blood Glucose: 201 mg/dL; aa1 Ranges: Intake: 04:05 IV: 40ml; Total: 40ml. ao 04:06 IV: 250ml; Total: 290ml. ao Outcome: 02:23 ER care complete, transfer ordered by . rn 04:09 Transferred by ground EMS to [facility], Transfer form completed. ao X-rays sent w/ patient. 04:09 Condition: stable 04:09 Instructed on the need for transfer. 04:16 Patient left the ED. ao Addendum: 11/22/2017 10:14 Addendum: Culture Results: Positive urine culture. Culture report faxed to [facility], ATTN: CHIQUITA Gregorio. Signatures: Dispatcher [employer] EDMS Joann Andrade, RN RN aa1 Reina Mitchell, CERTIFIED SURGICAL ASSISTANT-C CERTIFIED SURGICAL ASSISTANT-Csnw Ricky Gao MD MD rn Smirch, Shelby, RN RN Rosenda Weiss Laura, RN RN lp1 Chandu Spence RN Mary Francisco Ronaldo RN RN rv Chandu Spence RN ao Corrections: (The following items were deleted from the chart) 11/18 02:55 02:54 Jernigan cath inserted, using sterile technique, 16 Fr., by vt, balloon inflated, to rv gravity drainage, rv
--- NOTE | 2017-11-18 02:24 | EDPHYS ---
Physician Documentation [facility] Name: Nayla Greenberg Age: 82 yrs Sex: Male : 1935 Arrival Date: 11/18/2017 Time: 00:08 Bed 2 Private MD: ED Physician Ricky Gao HPI: 11/18 01:01 This 82 yrs old Male presents to ER via EMS with complaints of Hand Swelling - snw arm swelling, leaking fluid. Historical: - Allergies: 00:17 No Known Allergies; lp1 - Home Meds: 00:17 amlodipine 10 mg tab 1 tab once daily [Active]; gabapentin 300 mg Oral cap 1 cap at lp1 bedtime [Active]; Lasix 40 mg Oral tab once daily [Active]; Lipitor Oral [Active]; metformin 1,000 mg Oral tab 2 times per day [Active]; metoprolol tartrate 25 mg Oral tab 0.5 tab 2 times per day [Active]; multivitamin Oral daily [Active]; Vitamin D Oral 400 unit daily [Active]; - PMHx: 00:17 Diabetes - NIDDM; Hyperlipidemia; Hypertension; muscle atrophy; Paralysis; lp1 - Immunization history:: Adult Immunizations up to date. - Social history:: Smoking status: Patient/guardian denies using tobacco. - Ebola Screening: : No symptoms or risks identified at this time. ROS: 00:50 Constitutional: Negative for fever, chills, and weight loss, Eyes: Negative for injury, snw pain, redness, and discharge, ENT: Negative for injury, pain, and discharge, Neck: Negative for injury, pain, and swelling, Cardiovascular: Negative for chest pain, palpitations, and edema, Abdomen/GI: Negative for abdominal pain, nausea, vomiting, diarrhea, and constipation, Back: Negative for injury and pain, MS/Extremity: Negative for injury and deformity, Skin: Negative for injury, rash, and discoloration, Neuro: Negative for headache, weakness, numbness, tingling, and seizure. 00:50 Respiratory: Positive for shortness of breath. Exam: 00:41 Head/Face: Normocephalic, atraumatic. Eyes: Pupils equal round and reactive to light, snw extra-ocular motions intact. Lids and lashes normal. Conjunctiva and sclera are non-icteric and not injected. Cornea within normal limits. Periorbital areas with no swelling, redness, or edema. Neck: Trachea midline, no thyromegaly or masses palpated, and no cervical lymphadenopathy. Supple, full range of motion without nuchal rigidity, or vertebral point tenderness. No Meningismus. Chest/axilla: Normal chest wall appearance and motion. Nontender with no deformity. No lesions are appreciated. 00:41 Back: No spinal tenderness. No costovertebral tenderness. Full range of motion. MS/ Extremity: Pulses equal, no cyanosis. Neurovascular intact. Full, normal range of motion. Neuro: Awake and alert, GCS 15, oriented to person, place, time, and situation. Cranial nerves II-XII grossly intact. Motor strength 5/5 in all extremities. Sensory grossly intact. Cerebellar exam normal. Normal gait. 00:41 Constitutional: The patient appears anxious, lethargic, uncomfortable, unkempt. 00:41 Cardiovascular: Rate: normal, Rhythm: regular, Pulses: no pulse deficits are appreciated, Heart sounds: normal, Edema: 3+ edema to level of right shoulder, right upper arm, right elbow, right forearm, right wrist, right hand, waist, left shoulder, left upper arm, left elbow, left forearm, left wrist and left hand, JVD: is noted bilaterally, to 2 cm. 00:41 Respiratory: moderate respiratory distress is noted, Respirations: shallow respirations, tachypnea, Breath sounds: decreased breath sounds, that are moderate, are located in both bases. 00:41 Abdomen/GI: Inspection: distension, that is moderate, obese 00:41 Skin: Appearance: arms and dorsal hands weeping . Vital Signs: 00:11 BP 102 / 40; Pulse 63; Resp 19; Temp 98.2(O); Pulse Ox 93% on R/A; Weight 99.79 kg; lp1 Height 5 ft. 8 in. (172.72 cm); 01:30 BP 81 / 62; Pulse 30; Resp 20; Pulse Ox 99% on BiPAP; aa1 01:46 BP 119 / 42; Pulse 49; Resp 22; Pulse Ox 100% on BiPAP; aa1 02:40 BP 121 / 51; Pulse 44; Resp 22; Pulse Ox 97% on BiPAP; Pain 0/10; aa1 03:13 BP 109 / 73; Pulse 45; Resp 20; Pulse Ox 94% on BiPAP; Pain 0/10; aa1 03:32 BP 137 / 52; Pulse 53; Resp 20; Pulse Ox 98% on BiPAP; Pain 0/10; aa1 04:10 BP 127 / 57; Pulse 43; Resp 20; Pulse Ox 98% 3 lpm ; Pain 0/10; ao 00:11 Body Mass Index 33.45 (99.79 kg, 172.72 cm) lp1 Procedures: 01:50 Central Line: the site was prepped with Betadine, in sterile fashion, a triple lumen rn catheter was inserted, in the right femoral vein, in 1 attempts. placement was verified, by blood return, the site was dressed with Tegaderm, the patient tolerated the procedure, well. MDM: 00:10 Patient medically screened. snw 01:52 Data reviewed: vital signs, nurses notes, lab test result(s), EKG, radiologic studies. snw Data interpreted: Pulse oximetry: on is 93 %. Interpretation: placed on BiPap. Counseling: I had a detailed discussion with the patient and/or guardian regarding: the historical points, exam findings, and any diagnostic results supporting the discharge/admit diagnosis, lab results. Physician consultation:. 02:00 ED course: pt states he is breathing easier, very minimal urine output to cline. ABG's snw in progress. 02:04 ED course: Pt responded well to hyperkalemia treatment, HR from 20s to 40s-50s, pt in bar turner renal failure, anasarca, could benefit from emergent HD, organizing transfer to [facility] for ICU and higher level of care. . 02:19 ED course: Accepted for transfer to [facility] by Dr. Mccain for ICU level care.. rn 02:56 ED course: Pt feels like breathing is better. New ECG shows sinus bradycardia.. rn 11/18 00:09 Order name: Basic Metabolic Panel; Complete Time: 01:48 snw 11/18 00:09 Order name: CBC with Diff; Complete Time: 01:20 snw 11/18 00:09 Order name: Ckmb; Complete Time: 01:48 snw 11/18 00:09 Order name: CPK; Complete Time: 01:48 snw 11/18 00:09 Order name: LFT's; Complete Time: 01:48 snw 11/18 00:09 Order name: Magnesium; Complete Time: 01:48 11/18 00:09 Order name: NT PRO-BNP; Complete Time: 01:48 11/18 00:09 Order name: PT-INR; Complete Time: 01:20 11/18 00:09 Order name: Ptt, Activated; Complete Time: 01:20 11/18 00:09 Order name: Troponin (emerg Dept Use Only); Complete Time: 01:48 11/18 00:09 Order name: Blood Culture* 11/18 00:09 Order name: Lactate; Complete Time: 01:48 11/18 00:09 Order name: Procalcitonin; Complete Time: 01:48 11/18 01:54 Order name: Urine Culture 11/18 00:09 Order name: XRAY Chest (1 view) 11/18 01:01 Order name: BIPAP 11/18 01:54 Order name: Urine Microscopic Only; Complete Time: 04:07 11/18 02:03 Order name: Urine Dipstick--Ancillary (enter results); Complete Time: 04:07 11/18 02:11 Order name: ABG; Complete Time: 02:42 11/18 00:09 Order name: EKG; Complete Time: 00:11 11/18 00:09 Order name: Cardiac monitoring; Complete Time: 00:41 11/18 00:09 Order name: EKG - Nurse/Tech; Complete Time: 01:53 11/18 00:09 Order name: IV Saline Lock; Complete Time: 00:40 11/18 00:09 Order name: Labs collected and sent; Complete Time: 00:40 11/18 00:09 Order name: O2 Per Protocol; Complete Time: 00:40 11/18 00:09 Order name: O2 Sat Monitoring; Complete Time: 00:41 11/18 00:09 Order name: Urine Dipstick-Ancillary (obtain specimen); Complete Time: 02:05 11/18 00:09 Order name: Cline; Complete Time: 01:27 11/18 01:51 Order name: Pacing-External: to pt, no pacing at this time; Complete Time: 01:57 11/18 01:53 Order name: FSBS: hourly; Complete Time: 02:41 snw 11/18 01:54 Order name: Intake and Output; Complete Time: 03:09 snw 11/18 01:54 Order name: NPO; Complete Time: 02:27 snw 11/18 02:02 Order name: EKG; Complete Time: 02:04 snw Administered Medications: 00:46 Drug: NS 0.9% 250 ml Route: IV; Rate: bolus; Site: left jugular; ao 04:05 Follow up: IV Status: Order to discontinue infusion; IV Intake: 40ml ao 00:55 Drug: Lasix 40 mg Route: IVP; Site: right antecubital; ao 03:05 Follow up: Response: No change in condition; No change in condition; no urine output aa1 01:20 Drug: Atropine 1 mg {Note: By NP. Reina} Route: IVP; Site: right antecubital; ao 01:30 Follow up: Response: Cardiac rhythm is unchanged aa1 01:26 Drug: Dopamine drip 5 mcg/kg/min - (DOPamine 400 mg, D5W 250 ml) Route: IV; Rate: aa1 calculated rate; Site: left antecubital; 03:01 Follow up: Rate change 10 mcg/kg/min aa1 03:04 Follow up: IV Status: Infusion continued upon admission aa1 01:32 Drug: Calcium Chloride 1 grams Route: IVP; Site: left jugular; aa1 03:06 Follow up: Response: No adverse reaction; No adverse reaction; given for hyperkalemia aa1 04:06 Follow up: Response: No adverse reaction ao 01:33 Drug: D50W 50 ml Route: IVP; Site: right femoral; aa1 03:07 Follow up: Response: No adverse reaction; No adverse reaction; given for hyperkalemia aa1 01:34 Drug: Insulin Regular Human 10 units {Co-Signature: ao (Chandu Spence RN).} Route: IVP; aa1 Site: right femoral; 03:08 Follow up: Response: No adverse reaction; No adverse reaction; given for hyperkalemia aa1 01:35 Drug: Sodium Bicarbonate 1 amp Route: IVP; Site: right femoral; aa1 04:07 Follow up: Response: No adverse reaction ao 01:36 Drug: Albuterol 2.5 mg Route: Inhalation; aa1 01:36 Drug: Albuterol 2.5 mg Route: Inhalation; aa1 01:36 Drug: Albuterol 2.5 mg Route: Inhalation; aa1 01:36 Drug: Sodium Bicarbonate 1 amp Route: IVP; Site: right femoral; aa1 04:05 Follow up: Response: No adverse reaction ao 01:48 Not Given (Other Intervention Used): Calcium Gluconate 2 grams IVPB once over 60 mins; aa1 (mix in NS 100 mL) 01:51 Drug: vancoMYCIN 1 grams Route: IVPB; Infused Over: 2 hrs; Site: right antecubital; ao 04:06 Follow up: IV Status: Completed infusion; IV Intake: 250ml ao 01:52 CANCELLED (Duplicate Order): Albuterol 2.5 mg Inhalation every 20 minutes x3 aa1 01:52 CANCELLED (Duplicate Order): Sodium Bicarbonate 1 amp IVP once; (50 mL); equals 50 mEq aa1 01:53 CANCELLED (Duplicate Order): Calcium Chloride 10% 10 ml IVP once aa1 01:58 Drug: Zosyn 3.375 grams Route: IVPB; Infused Over: 60 mins; Site: left antecubital; ao 02:41 Follow up: IV Status: Completed infusion aa1 03:18 Drug: Atropine 0.5 mg Route: IVP; Site: right femoral; aa1 03:30 Follow up: Response: No adverse reaction; Cardiac rhythm changed aa1 03:31 Drug: Calcium Chloride 1 grams Route: IVP; Site: right femoral; aa1 04:04 Follow up: Response: No adverse reaction ao Point of Care Testing: Blood Glucose: 01:46 Blood Glucose: 272 mg/dL; rv 02:40 Blood Glucose: 210 mg/dL; aa1 03:36 Blood Glucose: 201 mg/dL; aa1 Ranges: Critical Glucose Levels:Adult <50 mg/dl or >400 mg/dl <40 mg/dl or >180 mg/dl Disposition: 06:52 Co-signature as Attending Physician, Ricky Gao MD. rn Disposition: 11/18/17 02:23 Transfer ordered to [facility]. Diagnosis are Hyperkalemia, Shortness of breath, Pulmonary edema, Anasarca, Bradycardia, unspecified. - Reason for transfer: Higher level of care. - Accepting physician is Dr. Mccain. - Condition is Serious. - Problem is new. - Symptoms have improved. Critical care time excluding procedures: 02:19 Critical care time: Bedside Care: 25 minutes, Consultation: 5 minutes, Family rn Intervention: 5 minutes. Total time: 35 minutes Signatures: Dispatcher [employer] EDMS Joann Andrade RN RN aa1 Reina Mitchell, HYDROMETEOROLOGICAL TECHNICIAN-C HYDROMETEOROLOGICAL TECHNICIAN-Csnw Ricky Gao MD MD rn Pena, Laura, RN RN lp1 Chandu Spence RN RN ao Alex Ortiz RN ao Corrections: (The following items were deleted from the chart) 01:52 01:50 Albuterol 2.5 mg Inhalation every 20 minutes x3 ordered. aa1 aa1 01:52 01:50 Sodium Bicarbonate 1 amp IVP once; (50 mL); equals 50 mEq ordered. aa1 aa1 01:53 01:50 Calcium Chloride 10% 10 ml IVP once ordered. aa1 aa1 04:16 02:23 11/18/2017 02:23 Transfer ordered to [facility]. Diagnosis is ao Hyperkalemia; Shortness of breath; Pulmonary edema; Anasarca; Bradycardia, unspecified. Reason for transfer: Higher level of care. Accepting physician is Dr. Mccain. Condition is Serious. Problem is new. Symptoms have improved. rn
[2017-11-18 03:46] LABS: Urine Blood 1+ (NEG); Urine Glucose TRACE (NEG); Urine Protein 3+ (NEG)
[2017-11-18 04:00] LABS: Urine Coarse Granular Casts 0-5 /LPF (NONE SEEN); Urine Waxy Casts 0-5 /LPF (NONE SEEN)
[2017-11-18 04:02] LABS: Urine Bacteria <20 /HPF (NONE SEEN); Urine Culture Reflex Order NOT NEEDED; Urine RBC NONE SEEN /HPF (NONE SEEN)
[2017-11-18 04:20] VITALS: TEMP 98.2
[2017-11-18 04:26] VITALS: O2SAT 98
[2017-11-18 04:27] VITALS: BP 127/57
--- NOTE | 2017-11-18 08:10 | RAD REPORT ---
EXAM DESCRIPTION: RAD - Chest Single View - 11/18/2017 12:44 am CLINICAL HISTORY: DYSPNEA Chest pain. COMPARISON: Chest Single View dated 09/12/2017; Chest Single View dated 09/09/2017; Chest Single View dated 07/05/2016; Chest Single View dated 07/04/2016 FINDINGS: Portable technique limits examination quality. Mild bibasilar lung opacities are present, greater on the right with a small pleural effusion suspect ed. The findings may indicate atelectasis or developing pneumonia. The heart is upper limit normal in size. No displaced fractures.
--- NOTE | 2017-11-18 15:42 | EKG ---
Test Date: 2017-11-18 Test Time: 00:47:55 Power Superintendent: KARLY MEASUREMENT RESULTS: Intervals: Rate: 63 [place]: QRSD: 184 QT: 358 QTc: 366 [place]: P: [place]: QRS: -45 T: 82 INTERPRETIVE STATEMENTS: junctional rhythm Right bundle branch block Left anterior fascicular block Bifascicular block Abnormal ECG Compared to ECG 09/09/2017 15:14:41 Right bundle-branch block now present Left anterior fascicular block now present Bifascicular block now present Sinus rhythm no longer present Electronically Signed On 11-18-17 15:41:05 CDT by Loyd Guy
--- NOTE | 2017-11-18 15:42 | EKG ---
Test Date: 2017-11-18 Test Time: 02:09:57 Flatwork Finisher Hand: CHRIS MEASUREMENT RESULTS: Intervals: Rate: 48 [place]: 118 QRSD: 128 QT: 484 QTc: 432 [place]: P: -24 [place]: 118 QRS: 74 T: 60 INTERPRETIVE STATEMENTS: Sinus bradycardia Right bundle branch block Abnormal ECG Compared to ECG 11/18/2017 00:47:55 Left anterior fascicular block no longer present Bifascicular block no longer present Electronically Signed On 11-18-17 15:40:38 CDT by Loyd Guy
== END 2017-11-18 04:16 | disposition short-term general hospital (02) ==
LOC: ER 23:57
PROC: 06HM33Z Insertion of Infusion Device into Right Femoral Vein, Percutaneous Approach (ICD-10-PCS; principal; 2017-11-18)
DX: E87.5 Hyperkalemia (principal); J81.1 Chronic pulmonary edema; R60.1 Generalized edema; R00.1 Bradycardia, unspecified; I10 Essential (primary) hypertension; E11.9 Type 2 diabetes mellitus without complications; E78.5 Hyperlipidemia, unspecified
CPT/HCPCS: 36415; 36556; 51702; 71045; 80048; 80076; 82550; 82553; 82805; 83605; 83735; 83880; 84145; 84484; 85025; 85610; 85730; 87040 ×2; 87086; 87088; 87205 ×2; 93005 ×2; 94660; 99285; J1265; J2543; J3370; 81003; 81015; 82962; 87077; 87186; 96361; 96365; 96367; 96368; 96375

== ENCOUNTER 2017-12-10 16:14 | Inpatient (IN) | payer OTHER ==
--- OUTSIDE RECORDS SUMMARY | 2017-12-10 16:17 | XMS REPORT | Clinical Summary ---
:1935 Author Organization [facility] Address [address] [place] [address] Phone Care Team Providers Name Role Phone Unavailable Primary Care Provider Unavailable Allergies Active Allergy Reactions Severity Noted Date Comments Adhesive Tape-Silicones Rash Medium 07/04/2016 Current Medications Prescription Sig. Disp. Refills Start Date End Date Status aspirin 81 MG Take 1 tablet 30 tablet 0 12/04/2017 12/04/2018 Active chewable tablet (81 mg total) by mouth daily. atorvastatin Take 1 tablet 30 tablet 0 12/03/2017 12/03/2018 Active (LIPITOR) 40 MG (40 mg total) by tablet mouth nightly. gabapentin Take 1 capsule 30 capsule 0 12/03/2017 12/03/2018 Active (NEURONTIN) 300 MG (300 mg total) capsule by mouth nightly. metoprolol Take 1 tablet 30 tablet 0 12/03/2017 12/03/2018 Active (LOPRESSOR) 25 MG (25 mg total) by tablet mouth 2 (two) times daily. sodium bicarbonate Take 1 tablet 30 tablet 0 12/03/2017 12/03/2018 Active 650 MG tablet (650 mg total) by mouth 2 (two) times daily. torsemide (DEMADEX) Take 1 tablet 30 tablet 0 12/04/2017 12/04/2018 Active 20 MG tablet (20 mg total) by mouth daily. traMADol (ULTRAM) 50 Take 1 tablet 30 tablet 0 12/03/2017 12/13/2017 Active mg tablet (50 mg total) by mouth every 6 (six) hours as needed for up to 10 days. Max Daily Amount: 200 mg Active Problems Problem Noted Date BPH (benign prostatic hyperplasia) 11/19/2017 Diabetic neuropathy (HCC) 11/19/2017 Hyperlipidemia 11/19/2017 Hyperphosphatemia 11/19/2017 Anemia of chronic disease 11/19/2017 Hyperglycemia 11/19/2017 Muscle atrophy 11/19/2017 Leukocytosis 11/19/2017 Acute exacerbation of CHF (congestive heart failure) ([facility]) 11/18/2017 Acute cystitis without hematuria 11/18/2017 Hyperkalemia 11/18/2017 Type 2 diabetes mellitus with complication, without long-term current use of insulin ([facility]) Bradycardia 11/18/2017 Shortness of breath 11/18/2017 BASSEM (acute kidney injury) ([facility]) 11/18/2017 Encounters Date Type Specialty Care Team Description 11/18/2017 - Hospital Encounter General Internal Elio Mccain BASSEM (acute kidney 12/03/2017 Medicine MD [place] injury) ([facility]) Charles De La Torre MD 11/18/2017 Orders Only General Internal Medicine after 12/09/2016 Social History Tobacco Use Types Packs/Day Years Used Date Never Smoker Smokeless Tobacco: Never Used Sex Assigned at Date Recorded Not on file Last Filed Vital Signs Vital Sign Reading Time Taken Blood Pressure 170/74 12/03/2017 2:35 PM CDT Pulse 65 12/03/2017 2:35 PM CDT Temperature 35.8 C (96.4 F) 12/03/2017 2:35 PM CDT Respiratory Rate 18 12/03/2017 2:35 PM CDT Oxygen Saturation 99% 12/03/2017 2:35 PM CDT Inhaled Oxygen Concentration - - Weight 103.2 kg (227 lb 8.2 oz) 12/03/2017 6:01 AM CDT Height 172.7 cm (5' 8") 11/19/2017 6:00 AM CDT Body Mass Index 34.59 12/03/2017 6:01 AM CDT Plan of Treatment Date Type Specialty Care Team Description 12/22/2017 Office Visit Cardiology Richar Gallo, ALEX [address] [facility] [place] [address] Procedures Procedure Name Priority Date/Time Associated Diagnosis Comments US GUIDE, VASCULAR Routine 11/18/2017 2:43 PM BASSEM (acute kidney Results for this ACCESS CDT injury) ([facility]) procedure are in the results section. INSERT NON-TUNNEL Routine 11/18/2017 2:43 PM BASSEM (acute kidney Results for this CV CATH CDT injury) ([facility]) procedure are in the results section. after 12/09/2016 Results RHYTHM STRIP - SCAN (12/05/2017 1:41 PM)POC-Glucose meter (12/03/2017 5:13 PM) Only the most recent of62 resultswithin the time period is included. Component Value Ref Range POC-Glucose Meter 229 (H)Comment: TESTED AT [address] 70 - 110 mg/[place] [address] Specimen Performing Laboratory Blood [address] [address] CBC with platelet count + automated diff (12/03/2017 4:58 AM)Only the most recent of16 resultswithin the time period is included. Component Value Ref Range WBC 10.6 (H) 3.5 - 10.5 K/L RBC 2.90 (L) 4.63 - 6.08 M/L Hemoglobin 8.3 (L) 13.7 - 17.5 GM/DL Hematocrit 25.4 (L) 40.1 - 51.0 % MCV 87.6 79.0 - 92.2 fL MCH 28.6 25.7 - 32.2 pg MCHC 32.7 32.3 - 36.5 GM/DL RDW 13.8 11.6 - 14.4 % Platelets 490 (H) 150 - 450 K/CU MM MPV 8.9 (L) 9.4 - 12.4 fL nRBC 0 0 - 0 /100 WBC % Neutros 63 % % Lymphs 16 % % Monos 12 % % Eos 6 % % Baso 1 % # Neutros 6.69 (H) 1.78 - 5.38 K/L # Lymphs 1.71 1.32 - 3.57 K/L # Monos 1.26 (H) 0.30 - 0.82 K/L # Eos 0.68 (H) 0.04 - 0.54 K/L # Baso 0.12 (H) 0.01 - 0.08 K/L Immature Granulocytes-Relative 2 (H) 0 - 1 % Specimen Performing Laboratory Blood [address] [address] CBC with platelet count + automated diff (12/03/2017 4:58 AM)Only the most recent of16 resultswithin the time period is included. Specimen Performing Laboratory Blood Narrative The following orders were created for panel order CBC with platelet count + automated diff. Procedure Abnormality Status --------- ------ CBC with platelet count ...[[id number]]AbnormalFinal result Please view results for these tests on the individual orders. Phosphorus (12/03/2017 4:58 AM)Only the most recent of18 resultswithin the time period is included. Component Value Ref Range Phosphorus 3.8 2.3 - 4.7 mg/dL Specimen Performing Laboratory Blood [address] [address] Magnesium (12/03/2017 4:58 AM)Only the most recent of18 resultswithin the time period is included. Component Value Ref Range Magnesium 1.7 1.6 - 2.6 mg/dL Specimen Performing Laboratory Blood [address] [address] Basic Metabolic Panel (12/03/2017 4:58 AM)Only the most recent of9 resultswithin the time period is included. Component Value Ref Range Sodium 132 (L) 136 - 145 meq/L Potassium 4.4 3.5 - 5.1 meq/L Chloride 104 98 - 107 meq/L CO2 18 (L) 22 - 29 meq/L BUN 44 (H) 7 - 21 mg/dL Creatinine 1.90 (H) 0.57 - 1.25 mg/dL Glucose 204 (H) 70 - 105 mg/dL Calcium 8.8 8.4 - 10.2 mg/dL EGFR 34Comment: ESTIMATED GFR IS NOT ACCURATE mL/min/1.73 sq m CREATININE CLEARANCE IN PREDICTING GLOMERULAR FILTRATION RATE. ESTIMATED GFR IS NOT APPLICABLE FOR DIALYSIS PATIENTS. Specimen Performing Laboratory Blood [address] [address] Urinalysis w/Microscopic (12/02/2017 10:53 PM)Only the most recent of2 resultswithin the time period is included. Component Value Ref Range Color, UA Light Yellow Clarity, UA Clear Specific [place], UA 1.007 1.001 - 1.035 pH, UA 6.5 5.0 - 8.0 Protein, UA 600 mg/dL (A) Negative Glucose, UA 500 mg/dL (A) Negative Ketones, UA Negative Negative Bilirubin, UA Negative Negative Blood, UA Small (A) Negative Nitrite, UA Negative Negative Leukocytes, UA Negative Negative Urobilinogen, UA 0.2 0.2 - 1.0 mg/dL RBC, UA 3 /HPF WBC, UA 2 /HPF Squam Epithel, UA <1 /HPF Hyaline Casts, UA 2 /LPF Amorphous Crystals Rare Specimen Source Urine, Clean Catch Specimen Performing Laboratory Urine - Urine, Clean Catch [address] [address] Manual Differential (11/30/2017 5:31 AM)Only the most recent of5 resultswithin the time period is included. Component Value Ref Range % Neutros 83 % % Lymphs 8 % % Monos 4 % % Eos 4 % % Baso 1 % # Neutros 10.46 (H) 1.78 - 5.38 K/ul # Lymphs 1.01 (L) 1.32 - 3.57 K/ul # Monos 0.50 0.30 - 0.82 K/uL # Eos 0.50 0.04 - 0.54 K/uL # Baso 0.13 (H) 0.01 - 0.08 K/uL Total Counted 100 nRBC (manual) 1 (H) 0 - 0 /100 WBC WBC Morphology Normal Platelet Morphology Normal Anisocytosis 1+ few Microcytes 1+ few Artifact Present Platelet Conc Adequate Specimen Performing Laboratory Blood [address] [address] Narrative Received comment: User comments: Slide comments: Calcium, Ionized (11/29/2017 6:44 AM)Only the most recent of12 resultswithin the time period is included. Component Value Ref Range Calcium, Ion 1.08 (L) 1.12 - 1.27 mmol/L pH, Blood 7.32 Specimen Performing Laboratory Blood [address] [address] Comprehensive metabolic panel (11/29/2017 6:44 AM)Only the most recent of10 resultswithin the time period is included. Component Value Ref Range Protein, Total 6.2 6.0 - 8.3 gm/dL Albumin 2.9 (L) 3.5 - 5.0 g/dL Alkaline Phosphatase 314 (H) 40 - 150 U/L Total Bilirubin 0.3 0.2 - 1.2 mg/dL Sodium 132 (L) 136 - 145 meq/L Potassium 4.2 3.5 - 5.1 meq/L Chloride 102 98 - 107 meq/L CO2 19 (L) 22 - 29 meq/L BUN 44 (H) 7 - 21 mg/dL Creatinine 2.15 (H) 0.57 - 1.25 mg/dL Glucose 219 (H) 70 - 105 mg/dL Calcium 8.7 8.4 - 10.2 mg/dL AST 23 5 - 34 U/L ALT 29 6 - 55 U/L EGFR 30Comment: ESTIMATED GFR IS NOT ACCURATE mL/min/1.73 sq m CREATININE CLEARANCE IN PREDICTING GLOMERULAR FILTRATION RATE. ESTIMATED GFR IS NOT APPLICABLE FOR DIALYSIS PATIENTS. Specimen Performing Laboratory Blood [address] [address] Hemoglobin and hematocrit (11/28/2017 5:20 PM) Component Value Ref Range Hemoglobin 9.0 (L) 13.7 - 17.5 GM/DL Hematocrit 27.6 (L) 40.1 - 51.0 % Specimen Performing Laboratory Blood - Central Venous Line [address] [address] Narrative Call [phone] Tissue Exam (11/28/2017 11:15 AM) Component Value Ref Range Case Report Surgical Pathology Report Case: [id number] Authorizing Provider:Charles De La Torre, Collected: 11/28/2017 Pauline COOMBS Ordering Location: [address] Received: 11/28/2017 1115 Service Pathologist: Bryant Rodriguez MD Specimen:Kidney, [place] KIDNEY DIAGNOSIS KIDNEY, LEFT, NEEDLE BIOPSIES - ADVANCED DIABETIC GLOMERULOSCLEROSIS - NEGATIVE FOR IMMUNE MEDIATED GLOMERULONEPHRITIS - DIFFUSE INTERSTITIAL FIBROSIS AND TUBULAR ATROPHY (~70%) - MODERATE TO SEVERE ARTERIAL INTIMAL SCLEROSIS - DIFFUSE ARTERIOLAR HYALINOSIS - SEE COMMENT Signing Pathologist Direct Phone Line: [phone] COMMENT No immune mediated glomerulosclerosis is seen based on negative immunofluorescence and absence of electron dense deposits on electron microscopy. The renal biopsies show mixed features of hypertensive nephrosclerosis, and advanced diabetic glomerulosclerosis, class IV (see ref #1) characterized by nodular lesions and global glomerulosclerosis inv olving 56% (15/27) of all examined glomeruli, along with marked interstitial fibrosis and tubular atrophy involving about 70% of renal parenchyma. Reference: 1. Alexys James., Bea Harry., Amy Blackmon., Dale, AAntoniH., Mireille Cunningham., Monalisa Milan., Ellie Chau, Nohemy Asencio., Gelacio Guerra, de [place] Moore., et al. Pathologic classification of diabetic nephropathy. J Am Soc Nephrol 21:556-563, 2010. The results were communicated to Dr. Holder by Dr. Rodriguez on 12/01/2017. CPT Code(s) 37826, 84536 x3, 37136, 54881 x7, 96352 CLINICAL HISTORY History as communicated by Dr. Holder: 82 year old with long standing history of DM, now presents with increase in serum creatinine and 3g proteinuria. All serologies negative SPECIMEN SOURCE [place] kidney biopsy GROSS DESCRIPTION The specimen is received in three parts all labeled with the patient's information and labeled "osage kidney biopsy". Received in formalin are two kowalski-white core biopsies measuring 0.6 and 1.7 cm in length. The specimen is entirely submitted A1. Received fresh is a 1 cm kowalski core submitted for frozen for immunofluorescence staining and received in glutaraldehyde is a 0.3 cm kowalski core submitted for electron microscopy. CG/pl MICROSCOPIC DESCRIPTION LIGHT MICROSCOPY: Sections show two cores of tissue composed of cortex 50% and medulla 50%. Glomeruli: Approximately 19 glomeruli are examined of which 10 glomeruli are globally sclerotic/obsolescent or show near complete obsolescence. The capillary tuft in some sclerotic glomeruli is wrinkled and shrunken. The remaining non-globally sclerotic glomeruli are enlarged and have nodular mesangial expansion by PAS- and silver-positive matrix with normal to mild segmental hypercellularity. There i s mild wrinkling of capillary tuft. Focal and segmental sclerosis is seen. No endocapillary hypercellularity, crescents or thrombi are seen. Tubules and interstitium: There is severe interstitial fibrosis with focal tubular atrophy and mild interstitial inflammatory cell infiltration by lymphocytes admixed with eosinophils and neutrophils, i nvolving about 70% of renal cortex. Non-atrophic proximal tubules are focally ectatic with loss of brush borders. Vessels: Interlobular arteries show moderate intimal sclerosis and thickening. There is severe diffuse arteriolosclerosis. [place] red stain is negative for amyloid deposition. Special stains:Mira trichrome, PAS and Nunez silver stains were necessary for evaluation of this biopsy and showed expected staining patterns of internal control tissue matrix structures. Direct Immunofluorescence: Histology: H&E-stained sections show 2 non-obsolescent glomeruli and 2 obsolescent glomeruli. Immunofluorescence findings: IgA: negative in open glomeruli, focal weak granular mesangial staining in sclerotic glomerulus, tubular casts are positive IgG: no significant glomerular, tubulointerstitial or vascular staining. IgM: negative in glomeruli C3: negative in glomeruli,Salazar's capsule +. C1q: no significant glomerular, tubulointerstitial or vascular staining. Fibrinogen: no significant glomerular, tubulointerstitial or vascular staining. [place]: negative in open glomeruli, focal weak granular mesangial staining in sclerotic glomerulus, tubular casts are positive Lambda:negative in open glomeruli, focal weak granular mesangial staining in sclerotic glomerulus, tubular casts are positive All polyclonal antibodies used for immunofluorescence staining have been previously tested and shown to have appropriate reactivities with positive control specimens. ELECTRON MICROSCOPY Toluidine blue-stained sections reveals one non-obsolescent glomerulus and 3 globally sclerotic glomeruli. One open and 2 globally sclerotic glomeruli are examined ultrastructurally. Ultrastructure:Examination of the glomerular ultrastructure reveals that the glomerular basement membrane shows wrinkling and is variably thickened, focally measuring upto 1163 nm (normal male avera la=979 - 430 nm nm; Mari Brizuela Arch Pathol Lab Med 133; 224-232). Subendothelial , subepithelial, and mesangial/paramesangial electron-dense, immune complex- type deposits are not present. Podocyte foot proc esses are diffusely effaced with microvillous change. Specimen Performing Laboratory Tissue - Kidney [facility] [address] renal biopsy (11/28/2017 10:40 AM) Specimen Performing Laboratory GE RIS Narrative FINAL REPORT Ultrasound guided core biopsy of the left osage kidney dated 11/28/2017 Procedure: Core biopsy of the left osage kidney. Clinical Indication: Proteinuria Sedation: Moderate sedation was administered. 0.5 mg of Versed and 25 mcg fentanyl IV was used for moderate sedation monitored under my direction. Total intraservice time of the sedation was 50 minutes. The patient's vital signs were monitored throughout the procedure and recorded in the patient's medical record by the nurse. Anesthesia: 1% Xylocaine mixed with sodium bicarbonate local anesthesia. Technique: After obtained informed consent, ultrasound guided core biopsy of the left osage kidney was performed under usual sterile technique. Using an 18 gauge core biopsy needle, puncture was made posteriorly on the left with real time ultrasound guidance. 2 passes were performed withsufficient material for histology. Patient tolerated procedure well. Complication: None Estimated Blood Loss: None The specimen was sent to pathology. Impression: Successful ultrasound-guided core biopsy of the left osage kidney. Signed: Davon Diallo MD Report Verified Date/Time:11/28/2017 10:42:49 Reading Location: [address] Ultrasound Reading Room Procedure Note Interface, External Ris In - 11/28/2017 12:12 PM CDT FINAL REPORT Ultrasound guided core biopsy of the left osage kidney dated 11/28/2017 Procedure: Core biopsy of the left osage kidney. Clinical Indication: Proteinuria Sedation: Moderate sedation was administered. 0.5 mg of Versed and 25 mcg fentanyl IV was used for moderate sedation monitored under my direction. Total intraservice time of the sedation was 50 minutes. The patient's vital signs were monitored throughout the procedure and recorded in the patient's medical record by the nurse. Anesthesia: 1% Xylocaine mixed with sodium bicarbonate local anesthesia. Technique: After obtained informed consent, ultrasound guided core biopsy of the left osage kidney was performed under usual sterile technique. Using an 18 gauge core biopsy needle, puncture was made posteriorly on the left with real time ultrasound guidance. 2 passes were performed with sufficient material for histology. Patient tolerated procedure well. Complication: None Estimated Blood Loss: None The specimen was sent to pathology. Impression: Successful ultrasound-guided core biopsy of the left osage kidney. Signed: Davon Diallo MD Report Verified Date/Time: 11/28/2017 10:42:49 Reading Location: [address] Ultrasound Reading Room chest 1 view portable / bedside (11/27/2017 8:38 AM)Only the most recent of2 resultswithin the time period is included. Specimen Performing Laboratory GE RIS Narrative FINAL REPORT CLINICAL HISTORY: edema TECHNIQUE: 1 view of the chest. COMPARISON: 11/18/2017 IMPRESSION: The right central line remains in the SVC. Mild bilateral airspace opacities have decreased. Trace bilateral pleural effusions remain. The cardiomediastinal silhouette is magnified by technique. Signed: Loida Phillips MD Report Verified Date/Time:11/27/2017 08:40:13 Reading Location: [facility] Radiology Reading Room Procedure Note Interface, External Ris In - 11/27/2017 8:42 AM CDT FINAL REPORT CLINICAL HISTORY: edema TECHNIQUE: 1 view of the chest. COMPARISON: 11/18/2017 IMPRESSION: The right central line remains in the SVC. Mild bilateral airspace opacities have decreased. Trace bilateral pleural effusions remain. The cardiomediastinal silhouette is magnified by technique. Signed: Loida Phillips MD Report Verified Date/Time: 11/27/2017 08:40:13 Reading Location: [facility] Radiology Reading Room B-type Natriuretic Factor (BNP) (11/27/2017 6:01 AM)Only the most recent of3 resultswithin the time period is included. Component Value Ref Range BNP 109 (H) 0 - 100 pg/mL Specimen Performing Laboratory Blood - Central Venous Line [address] [address] Prothrombin time/INR (11/26/2017 5:46 AM)Only the most recent of5 resultswithin the time period is included. Component Value Ref Range Protime 15.1 (H) 11.7 - 14.7 seconds INR 1.2 <=5.9 Specimen Performing Laboratory Blood - Central Venous Line [address] [address] Narrative RECOMMENDED COUMADIN/WARFARIN INR THERAPY RANGES STANDARD DOSE: 2.0 - 3.0 Includes: PROPHYLAXIS for venous thrombosis, systemic embolization; TREATMENT for venous thrombosis and/or pulmonary embolus. HIGH RISK: Target INR is 2.5-3.5 for patients with mechanical heart valves. Rapid drug screen, urine (11/25/2017 6:33 PM) Component Value Ref Range Barbiturate Screen Negative Negative Benzodiazepine Screen Negative Negative Cocaine (Metab.) Screen Negative Negative Methadone Screen Negative Negative Opiate Screen Negative Negative Cannabinoid Screen Negative Negative Amph/Methamph Screen Negative Negative Phencyclidine Screen Negative Negative Oxycodone Screen Negative Negative Specimen Performing Laboratory Urine [address] [address] Narrative DRUGCUTOFF CONC. Cocaine 300 ng/mL Srhrfmntedl04 ng/mL Maushylzhnkzxf421 ng/mL Barbiturate 200 ng/mL Ibpsdbbcahwdy20 ng/mL Nwzpyh458 ng/mL Methadone 300 ng/mL Amphetamine/ 1000 ng/mL Methamphetamine Oxycodone 300 ng/mL This assay provides an unconfirmed qualitative test result for the clinical management of patients in emergency situations. Chain of custody not maintained. Some gril-wjk-khyhahe medications, as well as adulterants, may cause inaccurate results. Clinical correlation should be applied. A more comprehensive drug screen or confirmation of a detected drug may be performed upon request. Urine Immunofixation, 24 hour (11/22/2017 11:19 PM) Component Value Ref Range Volume, Urine 1700 ml Protein, Urine 176 (H) 0 - 14 mg/dL Protein, 24hr Urine 2992 (H) 0 - 300 mg/24hr Albumin, 24hr Urine 30.3 % Globulin, 24hr Urine 69.7 % Urine MATEO ID No monoclonal proteins or monoclonal free light chains detected. Pathologist: Mary Robledo MD (electronic signature) Specimen Performing Laboratory Urine - Urine, Voided [address] [address] Urine Protein Electrophoresis, 24 hour (11/22/2017 11:19 PM) Component Value Ref Range Protein, 24hr Urine 2992 (H) 0 - 300 mg/24hr Volume, Urine 1700 ml Albumin, 24hr Urine 30.3 % Globulin, 24hr Urine 69.7 % UPEP, ID Spillage of large amounts of globulin fractions may mask underlying monoclonal proteins; urine MATEO ordered and results pending. Protein, Urine 176 (H) 0 - 14 mg/dL Pathologist: Mary Robledo MD (electronic signature) Specimen Performing Laboratory Urine - Urine, Voided [address] [address] Protein, 24 hour urine (11/22/2017 11:19 PM) Component Value Ref Range Protein, 24hr Urine 2992 (H) 0 - 300 mg/24hr Volume, Urine 1700 ml Protein, Urine 176 (H) 0 - 14 mg/dL Specimen Performing Laboratory Urine - Urine, Voided [address] [address] Urinalysis w/Microscopic + Reflex to Culture (11/21/2017 7:08 PM)Only the most recent of2 resultswithin the time period is included. Component Value Ref Range Color, UA Light Yellow Clarity, UA Clear Specific [place], UA 1.005 1.001 - 1.035 pH, UA 8.5 (H) 5.0 - 8.0 Protein, UA 200 mg/dL (A) Negative Glucose, UA 500 mg/dL (A) Negative Ketones, UA Negative Negative Bilirubin, UA Negative Negative Blood, UA Trace (A) Negative Nitrite, UA Negative Negative Leukocytes, UA Negative Negative Urobilinogen, UA 0.2 0.2 - 1.0 mg/dL RBC, UA 0 /HPF WBC, UA 1 /HPF Bacteria, UA Rare Squam Epithel, UA <1 /HPF Specimen Source Specimen Performing Laboratory Urine - Urine, Voided [address] [address] Hemoglobin A1c (11/21/2017 4:08 AM)Only the most recent of2 resultswithin the time period is included. Component Value Ref Range Hemoglobin A1C 5.9 4.3 - 6.1 % Specimen Performing Laboratory Blood - Central Venous Line [address] [address] NM myocardial perfusion PET (rest and stress) (11/20/2017 12:03 PM) Specimen Performing Laboratory [facility] RIS Narrative FINAL REPORT PROCEDURE:Rest/Stress MYOCARDIAL PERFUSION PET with regadenoson\\XA9\\ CPT CODE:79412 INDICATION:Chest pain, risk factors for CAD HISTORY:Cardiac risk factors: Diabetes, hypertension, tobacco use. Other cardiovascular history: No reported CAD. Recent cardiac symptoms: Chest pain, dyspnea. Current cardiovascular-related medications: Metoprolol. PROTOCOL:Limited low-dose CT imaging was performed for attenuation correction. 40.0 mCi of Rb-82 chloride was injected iv at rest, and gated PET (positron emission tomography) images were obtained. Subsequently, 40.1 mCi of Rb-82 chloride was injected iv at expected peak pharmacologic effect, and gated PET images were obtained. PRELIMINARY STRESS TEST DATA FROM NONINVASIVE CARDIOLOGY: Pharmacologic stress was by 10-second iv infusion of 0.4 mg of regadenoson. Radiotracer was injected 30 seconds after start of stress. Heart rate was 70 beats/min at rest and 85 beats/min (61% of MPHR) at tracer injection. BP was 90/58 mmHg at rest and 105/52 mmHg at tracer injection. Stress was stopped for predetermined endpoint. The patient experienced abdominal discomfort; treatment was not required. Preliminary ECG evaluation revealed normal sinus rhythm, nonspecific interventricular conduction delay at rest and no ischemic changes with stress. (Final ECG interpretation and other stress and monitoring data are reported separately by Cardiology.) IMAGING FINDINGS:Study quality is good. Images obtained after stress injection show decreased tracer uptake in the apex. Resting images show mostly improved tracer uptake in the apex. LV volume appears normal. RV volume appears normal. Gated images obtained immediately after stress show normal LV wall motion. Gated images obtained at rest show normal LV wall motion. LVEF at rest is 58%. LVEF at stress is 64%. IMPRESSION: 1. Abnormal study.2. Appropriate pharmacologic stress.3. Abnormal myocardial perfusion.There is a mild severity, medium size, mildly reversible, perfusion defect in all the apical segments of the LV.4. Normal resting LV function. No deterioration of function is noted with pharmacologic stress.5. Extracardiac tracer distribution is normal.6. No previous [facility] study for comparison. NONINVASIVE RISK STRATIFICATION: The above findings are considered intermediate risk (1% to 3% annual mortality rate) based on the following criterion: - Mild/moderate resting left ventricular dysfunction (LVEF 35% to 49%) - Stress-induced moderate perfusion defect without LV dilation or increased lung intake (thallium-201) (JACC. 2012;59(9):857-81.) Signed: Venancio Saenz MD Report Verified Date/Time:11/20/2017 14:59:03 Reading Location: [address] Reading Room Procedure Note Interface, External Ris In - 11/20/2017 3:01 PM CDT FINAL REPORT PROCEDURE: Rest/Stress MYOCARDIAL PERFUSION PET with regadenoson\\XA9\\ CPT CODE: 84802 INDICATION: Chest pain, risk factors for CAD HISTORY: Cardiac risk factors: Diabetes, hypertension, tobacco use. Other cardiovascular history: No reported CAD. Recent cardiac symptoms: Chest pain, dyspnea. Current cardiovascular-related medications: Metoprolol. PROTOCOL: Limited low-dose CT imaging was performed for attenuation correction. 40.0 mCi of Rb-82 chloride was injected iv at rest, and gated PET (positron emission tomography) images were obtained. Subsequently, 40.1 mCi of Rb-82 chloride was injected iv at expected peak pharmacologic effect, and gated PET images were obtained. PRELIMINARY STRESS TEST DATA FROM NONINVASIVE CARDIOLOGY: Pharmacologic stress was by 10-second iv infusion of 0.4 mg of regadenoson. Radiotracer was injected 30 seconds after start of stress. Heart rate was 70 beats/min at rest and 85 beats/min (61% of MPHR) at tracer injection. BP was 90/58 mmHg at rest and 105/52 mmHg at tracer injection. Stress was stopped for predetermined endpoint. The patient experienced abdominal discomfort; treatment was not required. Preliminary ECG evaluation revealed normal sinus rhythm, nonspecific interventricular conduction delay at rest and no ischemic changes with stress. (Final ECG interpretation and other stress and monitoring data are reported separately by Cardiology.) IMAGING FINDINGS: Study quality is good. Images obtained after stress injection show decreased tracer uptake in the apex. Resting images show mostly improved tracer uptake in the apex. LV volume appears normal. RV volume appears normal. Gated images obtained immediately after stress show normal LV wall motion. Gated images obtained at rest show normal LV wall motion. LVEF at rest is 58%. LVEF at stress is 64%. IMPRESSION: 1. Abnormal study. 2. Appropriate pharmacologic stress. 3. Abnormal myocardial perfusion. There is a mild severity, medium size, mildly reversible, perfusion defect in all the apical segments of the LV. 4. Normal resting LV function. No deterioration of function is noted with pharmacologic stress. 5. Extracardiac tracer distribution is normal. 6. No previous [facility] study for comparison. NONINVASIVE RISK STRATIFICATION: The above findings are considered intermediate risk (1% to 3% annual mortality rate) based on the following criterion: - Mild/moderate resting left ventricular dysfunction (LVEF 35% to 49%) - Stress-induced moderate perfusion defect without LV dilation or increased lung intake (thallium-201) (JACC. 2012;59(9):308-72.) Signed: Venancio Saenz MD Report Verified Date/Time: 11/20/2017 14:59:03 Reading Location: [address] [facility] Reading Room Treadmill tolerance(Non-Nuclear Treadmill) (11/20/2017 11:58 AM) Specimen Performing Laboratory GE MUSE Narrative Protocol Name Regadenoson Time In Exercise Phase 00:01:00 Max. Systolic BP 105 mmHg Max Diastolic BP 52 mmHg Max Heart Rate 85 BPM Max Predicted Heart Rate 138 BPM Reason For Termination Predetermined end point Reason for Test Chest Pain Target HR Formula (220 - Age)*100% Arrhythmias ventricular premature beats-isolated Resting ECG Normal sinus rhythm Nonspecific Intraventricular Conduction Delay:Pos ST Changes No Significant Changes Overall Impression Indeterminate due to pharmacological stress Chest Pain CHEST TIGHTNESS HR Response To Exercise BP Response To Exercise metoprolol Interpretation:indeterminate gxt/mibi to follow Confirmed by fellow Jens Monreal ([id number]) on 11/20/2017 1:18:29 PM Confirmed by MD GLORIA MAJID ([id number]) on 11/21/2017 3:56:57 PM Procedure Note Interface, External Ris In - 11/21/2017 3:57 PM CDT Protocol Name Regadenoson Time In Exercise Phase 00:01:00 Max. Systolic BP 105 mmHg Max Diastolic BP 52 mmHg Max Heart Rate 85 BPM Max Predicted Heart Rate 138 BPM Reason For Termination Predetermined end point Reason for Test Chest Pain Target HR Formula (220 - Age)*100% Arrhythmias ventricular premature beats-isolated Resting ECG Normal sinus rhythm Nonspecific Intraventricular Conduction Delay:Pos ST Changes No Significant Changes Overall Impression Indeterminate due to pharmacological stress Chest Pain CHEST TIGHTNESS HR Response To Exercise BP Response To Exercise metoprolol Interpretation: indeterminate gxt/mibi to follow Confirmed by fellow Jens Monreal ([id number]) on 11/20/2017 1:18:29 PM Confirmed by MD GLORIA MAJID ([id number]) on 11/21/2017 3:56:57 PM Lactic acid, arterial, whole blood (11/20/2017 9:57 AM) Component Value Ref Range Lactate, Art 1.1 0.5 - 2.2 mmol/L Specimen Performing Laboratory Blood, Arterial - Central Venous Line [address] [address] Narrative Effective 09/27/2015: Units/Reference Range Change New: 0.5-2.2 mmol/LPrevious: 5-20 mg/dL TSH/Free T4 If Indicated (11/20/2017 4:34 AM) Component Value Ref Range TSH 1.55 0.35 - 4.94 uIU/mL Specimen Performing Laboratory Blood - Central Venous Line [address] [address] Hepatitis panel, acute (11/20/2017 4:34 AM) Component Value Ref Range Hep A IgM Nonreactive Nonreactive Hep B C IgM Nonreactive Nonreactive Hepatitis C Ab Nonreactive Nonreactive hepatitis B Surface Ag Nonreactive Nonreactive Specimen Performing Laboratory Blood - Central Venous Line [address] [address] Vitamin D, 25-Hydroxy (11/20/2017 4:34 AM) Component Value Ref Range Vitamin D 25-Hydroxy 14.3 6.6 - 49.9 ng/mL Specimen Performing Laboratory Blood - Central Venous Line [address] [address] Narrative Effective 03/05/2017: Reference Range Change New: 6.6-49.9 ng/mL Previous: 13.0-47.8 ng/mL Recommended Vitamin D Target Range: 30.0-40.0 ng/mL Complement Component C3 (11/20/2017 4:34 AM) Component Value Ref Range C3 Complement 82 82 - 193 mg/dL Specimen Performing Laboratory Blood - Central Venous Line [address] [address] Complement Component C4 (11/20/2017 4:34 AM) Component Value Ref Range C4 Complement 23 15 - 57 mg/dL Specimen Performing Laboratory Blood - Central Venous Line [address] [address] Uric acid (11/20/2017 4:34 AM) Component Value Ref Range Uric Acid 3.9 2.6 - 7.2 mg/dL Specimen Performing Laboratory Blood - Central Venous Line [address] [address] PTH, intact (11/20/2017 4:34 AM) Component Value Ref Range PTH 247.5 (H) 8.5 - 72.5 pg/mL Specimen Performing Laboratory Blood - Central Venous Line [address] [address] Creatine Kinase (CK) (11/20/2017 4:34 AM) Component Value Ref Range Total CK 97 29 - 200 U/L Specimen Performing Laboratory Blood - Central Venous Line [address] [address] TRANSFUSION SERVICE REPORT - SCAN (11/19/2017 6:01 PM)Venous doppler arms bilateral (11/19/2017 4:55 PM) Component Value Ref Range Ejection Fraction Specimen Performing Laboratory SLE ECHO HEARTLAB MKCKESSON CPACS Impressions Right Impression 1. The jugular vein is not visualized due to invasive line placement. 2. There is no deep venous obstruction in the subclavian, axillary, brachial, radial or ulnar veins. 3. There is no superficial venous obstruction in the cephalic or basilic veins. Left Impression 1. There is no deep venous obstruction in the jugular, subclavian, axillary, brachial, radial or ulnar veins. 2. There is no superficial venous obstruction in the cephalic or basilic veins. Conclusions Summary Venous duplex imaging and compression of the bilateral upper extremities was performed. The veins were adequately visualized except as noted above. The bilateral venous systems were patent and compressible with no evidence of thrombus where visualized. Signature Velocities are measured in cm/s ; Diameters are measured in cm Narrative PV LAB - Upper Extremities Veins Demographics Patient Name NAYLA GALLO Date of Study 11/19/2017 [id number] Age 82 Visit Number [id number] GenderMale Accession Number [id number] [facility] 1935 [id number] Physician SonographAbida Jaime InterpretingDorothy Moore MD, RVSPhysician RPVI Procedure Type of Study: Veins: Upper Extremities Veins, VENOUS DOPPLER ARMS, BILATERAL. Indications for Study:Edema. Patient Status:Routine. Study Location:Portable. Technical Quality:Adequate visualization. Risk Factors History of Disease + + + + !Diagnosis !Date!Comments ! + + + + !History/Risk!11/19/2017!CHF, DM, BASESM, Leukocytosis, Muscle atrophy , ! !Factors:!!Morbid obesity! + + + + Procedure Note Interface, External Ris In - 11/20/2017 4:39 AM CDT PV LAB - Upper Extremities Veins Demographics Patient Name NAYLA GALLO Date of Study 11/19/2017 Age 82 Visit Number [id number] Gender Male Accession Number [id number] Date of 1935 Referring [facility] Room Number [id number] Physician Order Checker Packer Processer Esteban Jaime Interpreting JAntoni Moore MD, RVS Physician RPVI Procedure Type of Study: Veins: Upper Extremities Veins, VENOUS DOPPLER ARMS, BILATERAL. Indications for Study:Edema. Patient Status:Routine. Study Location:Portable. Technical Quality:Adequate visualization. Risk Factors History of Disease + + + + !Diagnosis !Date !Comments ! + + + + !History/Risk !11/19/2017!CHF, DM, BASSEM, Leukocytosis, Muscle atrophy, ! !Factors: ! !Morbid obesity ! + + + + Impressions Right Impression 1. The jugular vein is not visualized due to invasive line placement. 2. There is no deep venous obstruction in the subclavian, axillary, brachial, radial or ulnar veins. 3. There is no superficial venous obstruction in the cephalic or basilic veins. Left Impression 1. There is no deep venous obstruction in the jugular, subclavian, axillary, brachial, radial or ulnar veins. 2. There is no superficial venous obstruction in the cephalic or basilic veins. Conclusions Summary Venous duplex imaging and compression of the bilateral upper extremities was performed. The veins were adequately visualized except as noted above. The bilateral venous systems were patent and compressible with no evidence of thrombus where visualized. Signature Velocities are measured in cm/s ; Diameters are measured in cm Urine Protein Electrophoresis, random (11/19/2017 4:12 PM) Component Value Ref Range Protein, Urine 101 (H) 0 - 14 mg/dL Albumin %, Urine 45.1 % Globulin %, Urine 54.9 % UPEP,ID No monoclonal bands detected. Pathologist: Mary Robledo MD (electronic signature) Specimen Performing Laboratory Urine - Urine, [address] [address] ECG 12 lead (11/19/2017 4:03 PM)Only the most recent of2 resultswithin the time period is included. Specimen Performing Laboratory GE MUSE Narrative Ventricular Rate 90 BPM Atrial Rate 90 BPM P-R Interval 158 ms QRS Duration 96 ms Q-T Interval 472 ms QTC Calculation(Bazett) 577 ms P Baskin 53 degrees R Baskin 14 degrees T Baskin 64 degrees Normal sinus rhythm ST & T wave abnormality, consider inferior ischemia Prolonged QT Abnormal ECG When compared with ECG of 18-NOV-2017 09:59, Non-specific change in ST segment in Anterior leads T wave inversion now evident in Inferior leads QT has lengthened Confirmed by MD APRIL, SABINO Sun ([id number]) on 11/20/2017 5:07:59 PM Procedure Note Interface, External Ris In - 11/20/2017 5:08 PM CDT Ventricular Rate 90 BPM Atrial Rate 90 BPM P-R Interval 158 ms QRS Duration 96 ms Q-T Interval 472 ms QTC Calculation(Bazett) 577 ms P Baskin 53 degrees R Baskin 14 degrees T Baskin 64 degrees Normal sinus rhythm ST & T wave abnormality, consider inferior ischemia Prolonged QT Abnormal ECG When compared with ECG of 18-NOV-2017 09:59, Non-specific change in ST segment in Anterior leads T wave inversion now evident in Inferior leads QT has lengthened Confirmed by MD APRIL, SABINO Sun ([id number]) on 11/20/2017 5:07:59 PM Sodium, random urine (11/19/2017 3:27 PM) Component Value Ref Range Sodium Urine 91 meq/L Specimen Performing Laboratory Urine - Urine, [address] [address] Narrative Reference Range: No Normals Protein, random urine (11/19/2017 3:27 PM) Component Value Ref Range Protein, Urine 94 (H) 0 - 14 mg/dL Specimen Performing Laboratory Urine - Urine, [address] [address] Creatinine, random urine (11/19/2017 3:27 PM) Component Value Ref Range Creatinine, Ur <5.0 mg/dL Specimen Performing Laboratory Urine - Urine, [address] [address] Narrative Reference Range: No Normals Troponin I (11/19/2017 3:24 PM)Only the most recent of5 resultswithin the time period is included. Component Value Ref Range Troponin I 0.06 (H) 0.00 - 0.03 ng/mL Specimen Performing Laboratory Blood [address] [address] Narrative Troponin I (TnI) levels must be interpreted in the context of the presenting symptoms and the clinical findings. Elevated TnI levels indicate myocardial damage, but are not specific for ischemic heart disease. Elevated TnI levels are seen in patients with other cardiac conditions (including myocarditis and congestive heart failure), and slight TnI elevations occur in patients with other conditions, including sepsis, renal failure, acidosis, acute neurological disease, and persistent tachyarrhythmia. Protein electrophoresis, serum (11/19/2017 3:24 PM) Component Value Ref Range Albumin Fraction 2.5 (L) 3.5 - 5.5 g/dL Alpha 1 Fraction 0.3 0.2 - 0.4 g/dL Alpha 2 Fraction 0.7 0.5 - 0.9 g/dL Beta Fraction 0.8 0.6 - 1.1 g/dL Gamma Globulin Fraction 1.1 0.7 - 1.7 g/dL Interpretation Decreased albumin with concurrent relative increases in all globulin fractions. No monoclonal bands detected. Pathologist: Mary Robledo MD (electronic signature) Protein, Total 5.3 (L) 6.0 - 8.3 gm/dL Specimen Performing Laboratory Blood [address] [address] HIV-1 Antigen with HIV-1/2 Antibody (11/19/2017 3:21 PM) Component Value Ref Range HIV-1 Antigen with HIV 1&2 Antibody Nonreactive Nonreactive Specimen Performing Laboratory Blood - Central Venous Line [address] [address] Glomerular basement membrane antibody (11/19/2017 3:21 PM) Component Value Ref Range GBM Ab <1.0 <1.0 AI Comment: Interpretation: < 1.0 AI No Antibody Detected > OR=1.0 AI Antibody Detected Specimen Performing Laboratory Blood - Central Venous Line [facility] [address] [place] [address] Narrative Performing Lab [facility] [address] [address] Stephen Sneed MD, PhD, DONNY Rheumatoid factor Ab, reflex to titer (11/19/2017 3:21 PM) Component Value Ref Range Rheumatoid Factor Positive Specimen Performing Laboratory Blood - Central Venous Line [address] [address] Anti-Neutrophil Cytoplasmic Ab (ANCA) (11/19/2017 3:21 PM) Component Value Ref Range Proteinase-3 Ab <1.0 <1.0 AI Comment: <1.0 AI No Antibody Detected > or=1.0 AI Antibody Detected Autoantibodies to proteinase-3 (MN-3) are accepted as characteristic for granulomatosis with polyangiitis (GPA, Skyla's), and are detectable in 95% of the histologically proven cases. The cytoplasmic IFA pattern, (c-ANCA), is based largely on autoantibody to MN-3 which serves as the primary antigen. These autoantibodies are present in active disease. Myeloperoxidase Ab <1.0 <1.0 AI Comment: <1.0 AI No Antibody Detected > or=1.0 AI Antibody Detected Autoantibodies to myeloperoxidase (MPO) are commonly associated with the following small-vessel vasculitides: microscopic polyangiitis, polyarteritis nodosa, Churg-Stephanie syndrome, necrotizing and crescentic glomerulonephritis and occasionally granulomatosis with polyangiitis (GPA, Skyla's). The perinuclear IFA pattern, (p-ANCA) is based largely on autoantibody to myeloperoxidase which serves as the primary antigen. These autoantibodies are present in active disease. Specimen Performing Laboratory Blood - Central Venous Line [facility] [id number] [place] [address] Narrative Performing Lab [facility] [id number] [place] [address] Stephen Sneed MD, PhD, DONNY Rheumatoid factor titer (11/19/2017 3:21 PM) Component Value Ref Range Rheumatoid Factor TTR 1:8 Specimen Performing Laboratory Blood - Central Venous Line [address] [address] Anti-Nuclear Antibody (YOLA) (11/19/2017 3:21 PM) Component Value Ref Range YOLA Negative Negative Specimen Performing Laboratory Blood - Central Venous Line [address] [address] Lactic acid, venous, whole blood (11/19/2017 6:17 AM)Only the most recent of5 resultswithin the time period is included. Component Value Ref Range Lactate, Venous 3.8 (H)Comment: Specimen slightly hemolyzed 0.5 - 2.2 mmol/L Specimen Performing Laboratory Blood - Central Venous Line [address] [address] Narrative Effective 09/27/2015: Units/Reference Range Change New: 0.5-2.2 mmol/LPrevious: 5-20 mg/dL Potassium (11/19/2017 6:17 AM)Only the most recent of4 resultswithin the time period is included. Component Value Ref Range Potassium 4.6 3.5 - 5.1 meq/L Specimen Performing Laboratory Blood - Central Venous Line [address] [address] Creatine Kinase (CK), Total and MB (11/19/2017 6:17 AM)Only the most recent of4 resultswithin the time period is included. Component Value Ref Range Total CK 141 29 - 200 U/L CK-MB 7.9 (H) 0.0 - 6.6 ng/mL MB Relative Index 5.6 % Specimen Performing Laboratory Blood - Central Venous Line [facility] [address] [place] [address] Narrative CK-MB Reference Range: <6.7Normal 6.7-10.0Borderline >10.0 Abnormal ECHOCARDIOGRAM REPORT - SCAN (11/18/2017 5:14 PM)Central Line (11/18/2017 2: 43 PM) Narrative Adalberto Horan [facility] 11/18/20172:43 PM Central Line Date/Time: 11/18/2017 8:00 AM Performed by: ADALBERTO HORAN Authorized by: ADALBERTO HORAN Consent: The procedure was performed in an emergent situation. Verbal consent obtained. Risks and benefits: risks, benefits and alternatives were discussed Consent given by: patient Patient understanding: patient states understanding of the procedure being performed Patient consent: the patient's understanding of the procedure matches consent given Procedure consent: procedure consent matches procedure scheduled Relevant documents: relevant documents present and verified Test results: test results available and properly labeled Site marked: the operative site was marked Imaging studies: imaging studies available Required items: required blood products, implants, devices, and special equipment available Patient identity confirmed: verbally with patient, arm band and hospital-assigned identification number Time out: Immediately prior to procedure a "time out" was called to verify the correct patient, procedure, equipment, child support specialist and site/side marked as required. Indications: vascular access Anesthesia: local infiltration Anesthesia: Local Anesthetic: lidocaine 2% without epinephrine Anesthetic total: 5 mL Sedation: Patient sedated: no Preparation: skin prepped with 2% chlorhexidine and skin prepped with ChloraPrep Skin prep agent dried: skin prep agent completely dried prior to procedure Sterile barriers: all five maximum sterile barriers used - cap, mask, sterile gown, sterile gloves, and large sterile sheet Hand hygiene: hand hygiene performed prior to central venous catheter insertion Location details: right internal jugular Patient position: Trendelenburg Catheter type: triple lumen Catheter size: 14 Fr Pre-procedure: landmarks identified Ultrasound guidance: yes Sterile ultrasound techniques: sterile gel and sterile probe covers were used Number of attempts: 1 Successful placement: yes Post-procedure: line sutured and dressing applied Assessment: blood return through all ports,free fluid flow,placement verified by x-ray and no pneumothorax on x-ray Patient tolerance: Patient tolerated the procedure well with no immediate complications Immediate Post-Procedure Note Date/Time: 11/18/2017 8:00 AM Assistants to the procedure: None Pre-procedure diagnosis: BASSEM with symptomatic hyperkalemia Post-procedure diagnosis: BASSEM with symptomatic Hyperkalemia Procedures Performed: Central Line Specimens removed: None Estimated blood loss (mL): None Complications: None Type of anesthesia: None Grafts or Implants: None Comments: Wire removed from patient, all sharps accounted for and disposed of properly. 2D Echo W/Doppler(CW/PW/Color) (11/18/2017 2:12 PM) Component Value Ref Range Ejection Fraction Specimen Performing Laboratory [facility] ECHO HEARTLAB MKCK[facility]ON [facility] Narrative Transthoracic Echocardiography Report (TTE) Demographics Patient Name NAYLA GALLO Date of Study 11/18/2017 [id number] GenderMale Visit Number [id number] Race Unknown [id number] Number [id number] Number Date of Birth1935 Referring Physician Angela Cormier MD Age82 year(s) Order Checker Packer Processer NISHANT Flores,Interpreting Sabino Zheng MD [facility] Physician Procedure Type of Study TTE procedure:2DECHO W DOPPLER(CW/PW/COLOR) (STAT) Indications:Known or suspected heart failure. Clinical History DIABETES, BRADYCARDIA, OBESITY Contrast Medium: Definity. Amount - 2 ml Height: 68 inches Weight: 106.59 kg (235 lbs) BSA: 2.19 m^2 BMI: 35.73 kg/m^2 HR: 91 bpm BP: 121/57 mmHg Summary The left ventricle is chamber size (by vol index) is normal (male - LVED vol - 34-74ml/m2). Normal LV wall thickness. All of the LV segments are hyperkinetic . Global LV systolic function hyperdynamic . LVEF by Beckett's method of disk assessment is increased (>70%) . Grade 1 diastolic dysfunction (impaired relaxation and low-normal LA pressure). Estimated peak systolic PA pressure is 40-45 mmHg . Previous Study No prior exam available for comparison. Signature Findings Technical Quality: Technically difficult exam. Left Ventricle LV endocardium is adequately visualized with IV ultrasound enhancing agent. The left ventricle is chamber size (by vol index) is normal (male - LVED vol - 34-74ml/m2). Normal LV wall thickness. All of the LV segments are hyperkinetic . Global LV systolic function hyperdynamic . LVEF by Beckett's method of disk assessment is increased (>70%) . The LVEF was measured using Beckett's bi-plane method of disk . High (cardiac index >4 L/min/m2 ) cardiac output state at rest is noted. Grade 1 diastolic dysfunction (impaired relaxation and low-normal LA pressure). Left AtriumLA size is normal (16-34 ml/m2) . Right VentricleThe right ventricular chamber size and systolic function are within normal limits. Right Atrium RA cavity size is normal . Aortic Valve Normal AoV structure and function. Mitral Valve Normal MV structure and function. Tricuspid ValveTV structure is normal. Mild tricuspid regurgitation. Estimated peak systolic PA pressure is 40-45 mmHg . Pulmonic Valve Normal PV structure and function by limited views and Doppler. AortaAortic root size (SInus of Valsalva diameter) is normal . PericardiumNo pericardial effusion is visualized. IVC/SVC/PA/PV/PleuralThe estimated RA pressure by IVC dynamics 0-5mmHg . The inferior vena cava size is normal . The inferior vena cava is partially visualized. Chambers/Structures Left Atrium LA Volume: 58.11 ml LA Area: 18.55 cm^ 2 LA Vol. Index: 27 ml/m^2 Left Ventricle LVIDd: 3.57 cm LV Septum Diastolic: 1.02 cm LV PW Diastolic: 1.12 cm LVEDV Beckett's:135.21 ml LVESV Beckett's:36.43 ml LVEF Beckett's: 73 %LVEDVI: 62 ml/m^2 LVESVI: 17 ml/m^2 LVOT Diameter: 2.38 cm Doppler/Quantitative Measurements Mitral Valve MV Peak E-Wave: 0.83 m/sMV Peak A-Wave: 1.05 m/s E/ A Ratio: 0.79 Peak Gradient: 2.73 mmHg Deceleration Time: 235.7 msec MV Abhinav. Peak: Tissue Doppler E' Septal Velocity: 0.06 m/sE/E': 14.35 Aortic Valve Peak Velocity: 1.51 m/sMean Velocity: 1.07 m/s Peak Gradient: 9.18 mmHg Mean Gradient: 5.05 mmHg AV Area (continuity): 3.87 cm^2 AV VTI: 27.63 cm AV DVI: 0.87 LVOT Peak Velocity: 1.26 m/s Peak Gradient: 6.39 mmHg Mean Velocity: 0.87 m/s Mean Gradient: 3.37 mmHg LVOT Diameter: 2.38 cmLVOT VTI: 24.02 cm LVOT Area: 4.45 cm^2LVOT SV:106.81 ml LVOT CO: 9.72 l/min LVOT CI: 4.44 l/min/m^2 Tricuspid Valve TR Velocity: 3.05 m/s TR Gradient: 37.24 mmHg Procedure Note Interface, External Ris In - 11/18/2017 4:24 PM CDT Transthoracic Echocardiography Report (TTE) Demographics Patient Name NAYLA GALLO Date of Study 11/18/2017 Gender Male Visit Number [id number] Race Unknown Room Number 6A09 Number Date of 1935 Referring Physician Angela Cormier MD Age 82 year(s) Order Checker Packer Processer Ian Sanchez [facility] Laundry Presser Pam Longoria, Toby Zheng MD [facility] Physician Procedure Type of Study TTE procedure:2DECHO W DOPPLER(CW/PW/COLOR) (STAT) Indications:Known or suspected heart failure. Clinical History DIABETES, BRADYCARDIA, OBESITY Contrast Medium: Definity. Amount - 2 ml Height: 68 inches Weight: 106.59 kg (235 lbs) BSA: 2.19 m^2 BMI: 35.73 kg/m^2 HR: 91 bpm BP: 121/57 mmHg Summary The left ventricle is chamber size (by vol index) is normal (male - LVED vol - 34-74ml/m2). Normal LV wall thickness. All of the LV segments are hyperkinetic . Global LV systolic function hyperdynamic . LVEF by Beckett's method of disk assessment is increased (>70%) . Grade 1 diastolic dysfunction (impaired relaxation and low-normal LA pressure). Estimated peak systolic PA pressure is 40-45 mmHg . Previous Study No prior exam available for comparison. Signature Findings Technical Quality: Technically difficult exam. Left Ventricle LV endocardium is adequately visualized with IV ultrasound enhancing agent. The left ventricle is chamber size (by vol index) is normal (male - LVED vol - 34-74ml/m2). Normal LV wall thickness. All of the LV segments are hyperkinetic . Global LV systolic function hyperdynamic . LVEF by Beckett's method of disk assessment is increased (>70%) . The LVEF was measured using Beckett's bi-plane method of disk . High (cardiac index >4 L/min/m2) cardiac output state at rest is noted. Grade 1 diastolic dysfunction (impaired relaxation and low-normal LA pressure). Left Atrium LA size is normal (16-34 ml/m2) . Right Ventricle The right ventricular chamber size and systolic function are within normal limits. Right Atrium RA cavity size is normal . Aortic Valve Normal AoV structure and function. Mitral Valve Normal MV structure and function. Tricuspid Valve TV structure is normal. Mild tricuspid regurgitation. Estimated peak systolic PA pressure is 40-45 mmHg . Pulmonic Valve Normal PV structure and function by limited views and Doppler. Aorta Aortic root size (SInus of Valsalva diameter) is normal . Pericardium No pericardial effusion is visualized. IVC/SVC/PA/PV/Pleural The estimated RA pressure by IVC dynamics 0-5mmHg . The inferior vena cava size is normal . The inferior vena cava is partially visualized. Chambers/Structures Left Atrium LA Volume: 58.11 ml LA Area: 18.55 cm^2 LA Vol. Index: 27 ml/m^2 Left Ventricle LVIDd: 3.57 cm LV Septum Diastolic: 1.02 cm LV PW Diastolic: 1.12 cm LVEDV Beckett's:135.21 ml LVESV Beckett's:36.43 ml LVEF Beckett's: 73 % LVEDVI: 62 ml/m^2 LVESVI: 17 ml/m^2 LVOT Diameter: 2.38 cm Doppler/Quantitative Measurements Mitral Valve MV Peak E-Wave: 0.83 m/s MV Peak A-Wave: 1.05 m/s E/A Ratio: 0.79 Peak Gradient: 2.73 mmHg Deceleration Time: 235.7 msec MV Abhinav. Peak: Tissue Doppler E' Septal Velocity: 0.06 m/s E/E': 14.35 Aortic Valve Peak Velocity: 1.51 m/s Mean Velocity: 1.07 m/s Peak Gradient: 9.18 mmHg Mean Gradient: 5.05 mmHg AV Area (continuity): 3.87 cm^2 AV VTI: 27.63 cm AV DVI: 0.87 LVOT Peak Velocity: 1.26 m/s Peak Gradient: 6.39 mmHg Mean Velocity: 0.87 m/s Mean Gradient: 3.37 mmHg LVOT Diameter: 2.38 cm LVOT VTI: 24.02 cm LVOT Area: 4.45 cm^2 LVOT SV:106.81 ml LVOT CO: 9.72 l/min LVOT CI: 4.44 l/min/m^2 Tricuspid Valve TR Velocity: 3.05 m/s TR Gradient: 37.24 mmHg US renal complete (11/18/2017 1:48 PM) Specimen Performing Laboratory [employer] FINAL REPORT Ultrasound of the Kidneys Clinical History:bassem Discussion: Sonographic evaluation of the kidneys is performed. Right kidney:10 x 4.7 x 4 cm, with cortical thickness of 1.1 cm. Normal cortical echogenicity.No mass.No shadowing calculus. No hydronephrosis. Left kidney: 10.2 x 4.5 x 4.7 cm, with cortical thickness of 1.3 cm. Normal cortical echogenicity.No mass.No shadowing calculus.No hydronephrosis. Limited doppler evaluation of right main renal artery and vein demonstrate patency. Left renal vessels are poorly visualized due to patient's body habitus. Bladder:Decompressed with Jernigan catheter. Impression: No hydronephrosis. Signed: Nahid Cameron MD Report Verified Date/Time:11/18/2017 16:16:10 Reading Location: [address] Ultrasound Reading Room Procedure Note Interface, External Ris In - 11/18/2017 4:18 PM CDT FINAL REPORT Ultrasound of the Kidneys Clinical History: bassem Discussion: Sonographic evaluation of the kidneys is performed. Right kidney: 10 x 4.7 x 4 cm, with cortical thickness of 1.1 cm. Normal cortical echogenicity. No mass. No shadowing calculus. No hydronephrosis. Left kidney: 10.2 x 4.5 x 4.7 cm, with cortical thickness of 1.3 cm. Normal cortical echogenicity. No mass. No shadowing calculus. No hydronephrosis. Limited doppler evaluation of right main renal artery and vein demonstrate patency. Left renal vessels are poorly visualized due to patient's body habitus. Bladder: Decompressed with Jernigan catheter. Impression: No hydronephrosis. Signed: Nahid Cameron MD Report Verified Date/Time: 11/18/2017 16:16:10 Reading Location: [address] Ultrasound Reading Room Blood gas, venous (11/18/2017 10:38 AM)Only the most recent of2 resultswithin the time period is included. Component Value Ref Range pH, Sterling 7.49 (H) 7.32 - 7.42 pCO2, [place] 24 (L) 41 - 51 mmHg pO2, [place] 41 (H) 25 - 40 mmHg O2 Sat, Sterling 86.8 (H) 40.0 - 70.0 % HCO3, [place] 18 (L) 21 - 29 mmol/L Base Excess, Sterling -4.6 (L) -2.0 - 3.0 mmol/L Patient Temperature 34.5 C FIO2 36.0 % Specimen Performing Laboratory Blood [address] [address] Hepatitis C antibody (11/18/2017 10:15 AM) Component Value Ref Range Hepatitis C Ab Nonreactive Nonreactive Specimen Performing Laboratory Blood [address] [address] Hepatitis B core antibody, IgM (11/18/2017 10:15 AM) Component Value Ref Range Hep B C IgM Nonreactive Nonreactive Specimen Performing Laboratory Blood [address] [address] Hepatitis B core antibody, total (11/18/2017 10:15 AM) Component Value Ref Range Hep B Core Total Ab Nonreactive Nonreactive Specimen Performing Laboratory Blood [address] [address] Hepatitis B surface antigen (11/18/2017 10:15 AM) Component Value Ref Range hepatitis B Surface Ag Nonreactive Nonreactive Specimen Performing Laboratory Blood [address] [address] Hepatic function panel (11/18/2017 8:57 AM) Component Value Ref Range Protein, Total 6.3 6.0 - 8.3 gm/dL Albumin 3.2 (L) 3.5 - 5.0 g/dL Total Bilirubin 0.4 0.2 - 1.2 mg/dL Bilirubin, Direct 0.2 0.1 - 0.5 mg/dL Alkaline Phosphatase 95 40 - 150 U/L AST 20 5 - 34 U/L ALT 21 6 - 55 U/L Specimen Performing Laboratory Blood - Central Venous Line [address] [address] Narrative Call [phone] Electrolytes (11/18/2017 8:57 AM) Component Value Ref Range Sodium 133 (L) 136 - 145 meq/L Potassium 6.8 (HH) 3.5 - 5.1 meq/L Chloride 102 98 - 107 meq/L CO2 8 (LL) 22 - 29 meq/L Specimen Performing Laboratory Blood - Central Venous Line [address] [address] Narrative Call [phone] Type and screen, automated (11/18/2017 5:47 AM) Component Value Ref Range ABO/RH AUTOMATED (BEAKER) O POSITIVE Ab Scrn NEGATIVE Specimen Performing Laboratory Blood [address] [address] Blood culture (11/18/2017 5:46 AM) Component Value Ref Range Result No growth in 5 days Specimen Performing Laboratory Blood - Central Venous Line [address] [address] after 12/09/2016
--- OUTSIDE RECORDS SUMMARY | 2017-12-10 16:20 | XMS REPORT ---
:1935 [facility] Address [address] [place] [address] Dr. Berumen [address] [place] [id number] Care Team Providers Name Role Phone CLARITA GUZMAN Unavailable Unavailable Problems This patient has no known problems. Allergies, Adverse Reactions, Alerts This patient has no known allergies or adverse reactions. Medications This patient has no known medications. Results Test Description Test Time Test Comments Text Results Atomic Results Result Comments TISSUE EXAM 2017-12-09 18:37:00 Surgical Pathology Report Case: [id number] Authorizing Provider: Charles De La Torre, Collected: 11/28/2017 Pauline COOMBS Ordering Location: [address] Received: 11/28/2017 1115 Service Pathologist: Bryant Rodriguez MD Specimen: Kidney, [place] KIDNEY KIDNEY, LEFT, NEEDLE BIOPSIES- ADVANCED DIABETIC GLOMERULOSCLEROSIS- NEGATIVE FOR IMMUNE MEDIATED GLOMERULONEPHRITIS- DIFFUSE INTERSTITIAL FIBROSIS AND TUBULAR ATROPHY (~70%)- MODERATE TO SEVERE ARTERIAL INTIMAL SCLEROSIS- DIFFUSE ARTERIOLAR HYALINOSIS- SEE COMMENT Signing Pathologist Direct Phone Line: [phone] signed by Bryant Rodriguez MD on 12/09/2017 at 6:37 PMPreliminary result electronically signed by Bryant Rodriguez MD on 12/01/2017 at 7:08 PMNo immune mediated glomerulosclerosis is seen based on negative immunofluorescence and absence of electron dense deposits on electron microscopy. 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 Reference: 1. Alexys James., Rody Harry, Amy Blackmon., Dale, A.H., Octavio, H.T., Lucho Milan, Ellie Chau, Nohemy Asencio., Champ Guerra., de Rock Moore., et al. Pathologic classification of diabetic nephropathy. J Am Soc Nephrol 21:556-563, 2010.The results were communicated to Dr. Holder by Dr. Rodriguez on 12/01/2017.81784, 69021 x3, 10690, 01829 x7, [id number] as communicated by Dr. Holder: 82 year old with long standing history of DM, now presents with increase in serum creatinine and 3g proteinuria. All serologies negativeNative kidney biopsyThe specimen is received in three parts all labeled with the patient's information and labeled "eyak kidney biopsy". Received in formalin are two kowalski-white core biopsies measuring 0.6 and 1.7 cm in length. The specimen is entirely submitted A1. Received fresh is a 1 cm kowalski core submitted for frozen for immunofluorescence staining and received in glutaraldehyde is a 0.3 cm kowalski core submitted for electron microscopy. CG/pl LIGHT MICROSCOPY: Sections show two cores of [...] with normal to mild segmental hypercellularity. There is mild wrinkling of capillary tuft. Focal and segmental sclerosis is seen. No endocapillary hypercellularity, crescents or thrombi are seen.Tubules and interstitium: There is severe interstitial fibrosis with focal tubular atrophy and mild interstitial inflammatory cell infiltration by lymphocytes admixed with eosinophils and neutrophils, involving about 70% of renal cortex. Non-atrophic proximal tubules are focally ectatic with loss of brush borders. Vessels: Interlobular arteries show moderate intimal sclerosis and thickening. There is severe diffuse arteriolosclerosis. Congo red stain is negative for amyloid deposition.Special stains: Mira trichrome, PAS and Nunez silver stains were necessary for evaluation of this biopsy and showed expected staining patterns of internal control tissue matrix structures.Direct Immunofluorescence:Histology: H&E-stained sections show 2 non-obsolescent glomeruli and 2 obsolescent glomeruli. Immunofluorescence findings: IgA: negative in open glomeruli, focal weak granular mesangial staining in sclerotic glomerulus, tubular casts are positiveIgG: no significant glomerular, tubulointerstitial or vascular staining. IgM: negative in glomeruli C3: negative in glomeruli, Salazar's capsule +.C1q: no significant glomerular, tubulointerstitial or vascular staining. Fibrinogen: no significant glomerular, tubulointerstitial or vascular staining. Jameson: negative in open glomeruli, focal weak granular mesangial staining in sclerotic glomerulus, tubular casts are positiveLambda: negative in open glomeruli, focal weak granular mesangial staining in sclerotic glomerulus, tubular casts are positiveAll polyclonal antibodies used for immunofluorescence staining have been previously tested and shown to have appropriate reactivities with positive control specimens. ELECTRON MICROSCOPYToluidine blue-stained sections reveals one non-obsolescent glomerulus and 3 globally sclerotic glomeruli. One open and 2 globally sclerotic glomeruli are examined ultrastructurally.Ultrastructure: Examination of the glomerular ultrastructure reveals that the glomerular basement membrane shows wrinkling and is variably thickened, focally measuring upto 1163 nm (normal male oiysktk=804 - 430 nm nm; Mari Oakes. Arch Pathol Lab Med 133; 224-232). Subendothelial, subepithelial, and mesangial/paramesangial electron-dense, immune complex-type deposits are not present. 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 POCT-GLUCOSE METER 2017-12-03 17:15:00 Test Item Value Reference Range Comments POC-GLUCOSE METER (BEAKER) (test 229 mg/dL 70-110 TESTED AT [address] kixl=3355) [facility] [address] POCT-GLUCOSE [id number] 12:01:00 Test Item Value Reference Range Comments POC-GLUCOSE METER (BEAKER) 254 mg/dL 70-110 TESTED AT [address] (test qjgg=0534) [facility] [address] POCT-GLUCOSE [id number] 07:46:00 Test Item Value Reference Range Comments POC-GLUCOSE METER (BEAKER) 233 mg/dL 70-110 TESTED AT [address] (test cqzv=8194) [place] [id number] 05:56:00 Test Item Value Reference Range Comments PHOSPHORUS (BEAKER) (test bhej=035) 3.8 mg/dL 2.3-4.7 [id number] 05:56:00 Test Item Value Reference Range Comments MAGNESIUM (BEAKER) (test rchp=088) 1.7 mg/dL 1.6-2.6 BASIC METABOLIC [id number] 05:56:00 Test Item Value Reference Range Comments SODIUM (BEAKER) (test 132 meq/L 136-145 jspn=073) POTASSIUM (BEAKER) (test 4.4 meq/L 3.5-5.1 lnyq=473) CHLORIDE (BEAKER) (test 104 meq/L 98-107 ccbx=387) CO2 (BEAKER) (test 18 meq/L 22-29 hlut=166) BLOOD UREA NITROGEN 44 mg/dL 7-21 (BEAKER) (test ueei=495) CREATININE (BEAKER) (test 1.90 mg/dL 0.57-1.25 jmmi=639) GLUCOSE RANDOM (BEAKER) 204 mg/dL 70-105 (test robl=277) CALCIUM (BEAKER) (test 8.8 mg/dL 8.4-10.2 djxe=585) EGFR (BEAKER) (test 34 mL/min/1.73 sq m ESTIMATED GFR IS NOT goyc=1621) ACCURATE CREATININE CLEARANCE IN PREDICTING GLOMERULAR FILTRATION RATE. ESTIMATED GFR IS NOT APPLICABLE FOR DIALYSIS PATIENTS. CBC W/PLT COUNT & AUTO [id number] 05:25:00 Test Item Value Reference Range Comments WHITE BLOOD CELL COUNT (BEAKER) (test sktj=414) 10.6 K/ L 3.5-10.5 RED BLOOD CELL COUNT (BEAKER) (test mmfl=509) 2.90 M/ L 4.63-6.08 HEMOGLOBIN (BEAKER) (test mths=792) 8.3 GM/DL 13.7-17.5 HEMATOCRIT (BEAKER) (test wjer=088) 25.4 % 40.1-51.0 MEAN CORPUSCULAR VOLUME (BEAKER) (test yszv=964) 87.6 fL 79.0-92.2 MEAN CORPUSCULAR HEMOGLOBIN (BEAKER) (test 28.6 pg 25.7-32.2 wihd=082) MEAN CORPUSCULAR HEMOGLOBIN CONC (BEAKER) (test 32.7 GM/DL 32.3-36.5 fpar=747) RED CELL DISTRIBUTION WIDTH (BEAKER) (test 13.8 % 11.6-14.4 nnir=397) PLATELET COUNT (BEAKER) (test jkjp=977) 490 K/CU MM 150-450 MEAN PLATELET VOLUME (BEAKER) (test vntu=374) 8.9 fL 9.4-12.4 NUCLEATED RED BLOOD CELLS (BEAKER) (test 0 /100 WBC 0-0 ryus=544) NEUTROPHILS RELATIVE PERCENT (BEAKER) (test 63 % vnxe=766) LYMPHOCYTES RELATIVE PERCENT (BEAKER) (test 16 % pyag=350) MONOCYTES RELATIVE PERCENT (BEAKER) (test 12 % jnby=300) EOSINOPHILS RELATIVE PERCENT (BEAKER) (test 6 % soym=085) BASOPHILS RELATIVE PERCENT (BEAKER) (test 1 % ditx=442) NEUTROPHILS ABSOLUTE COUNT (BEAKER) (test 6.69 K/ L 1.78-5.38 faao=836) LYMPHOCYTES ABSOLUTE COUNT (BEAKER) (test 1.71 K/ L 1.32-3.57 uumb=073) MONOCYTES ABSOLUTE COUNT (BEAKER) (test 1.26 K/ L 0.30-0.82 dzsw=674) EOSINOPHILS ABSOLUTE COUNT (BEAKER) (test 0.68 K/ L 0.04-0.54 mppu=715) BASOPHILS ABSOLUTE COUNT (BEAKER) (test 0.12 K/ L 0.01-0.08 iest=369) IMMATURE GRANULOCYTES-RELATIVE PERCENT (BEAKER) 2 % 0-1 (test rmsa=4854) URINALYSIS W/ [id number] 23:14:00 Test Item Value Reference Range Comments COLOR (BEAKER) (test qtwj=734) Light Yellow CLARITY (BEAKER) (test atsm=065) Clear SPECIFIC GRAVITY UA (BEAKER) (test 1.007 1.001-1.035 wbgq=240) PH UA (BEAKER) (test oqbu=340) 6.5 5.0-8.0 PROTEIN UA (BEAKER) (test vckk=008) 600 mg/dL Negative GLUCOSE UA (BEAKER) (test kjsf=607) 500 mg/dL Negative KETONES UA (BEAKER) (test cfvs=819) Negative Negative BILIRUBIN UA (BEAKER) (test cyot=557) Negative Negative BLOOD UA (BEAKER) (test kyrc=288) Small Negative NITRITE UA (BEAKER) (test ryjg=954) Negative Negative LEUKOCYTE ESTERASE UA (BEAKER) (test Negative Negative lzsv=228) UROBILINOGEN UA (BEAKER) (test fwqi=243) 0.2 mg/dL 0.2-1.0 RBC UA (BEAKER) (test axji=622) 3 /HPF WBC UA (BEAKER) (test sezi=572) 2 /HPF SQUAMOUS EPITHELIAL (BEAKER) (test < /HPF quih=034) HYALINE CASTS (BEAKER) (test wcqn=014) 2 /LPF AMORPHOUS CRYSTALS (BEAKER) (test Rare qdse=9771) SOURCE(BEAKER) (test hgcl=1731) Urine, Clean Catch POCT-GLUCOSE [id number] 21:20:00 Test Item Value Reference Range Comments POC-GLUCOSE METER (BEAKER) 206 mg/dL 70-110 TESTED AT [address] (test zvkp=3889) [place] [id number] POCT-GLUCOSE [id number] 17:20:00 Test Item Value Reference Range Comments POC-GLUCOSE METER (BEAKER) 268 mg/dL 70-110 TESTED AT [address] (test hfds=1876) [place] [id number] POCT-GLUCOSE [id number] 16:20:00 Test Item Value Reference Range Comments POC-GLUCOSE METER (BEAKER) 249 mg/dL 70-110 TESTED AT [address] (test ffbs=0584) [place] [id number] POCT-GLUCOSE [id number] 14:29:00 Test Item Value Reference Range Comments POC-GLUCOSE METER (BEAKER) 196 mg/dL 70-110 TESTED AT [address] (test vzzn=8631) [place] [address] [id number] 08:17:00 Test Item Value Reference Range Comments PHOSPHORUS (BEAKER) (test nlec=233) 3.8 mg/dL 2.3-4.7 [id number] 08:17:00 Test Item Value Reference Range Comments MAGNESIUM (BEAKER) (test lzcp=591) 1.7 mg/dL 1.6-2.6 BASIC METABOLIC [id number] 08:17:00 Test Item Value Reference Range Comments SODIUM (BEAKER) (test 133 meq/L 136-145 rrrc=765) POTASSIUM (BEAKER) (test 4.7 meq/L 3.5-5.1 ioze=841) CHLORIDE (BEAKER) (test 105 meq/L 98-107 slrk=864) CO2 (BEAKER) (test 19 meq/L 22-29 mqzt=615) BLOOD UREA NITROGEN 42 mg/dL 7-21 (BEAKER) (test psyl=792) CREATININE (BEAKER) (test 1.90 mg/dL 0.57-1.25 ukch=550) GLUCOSE RANDOM (BEAKER) 186 mg/dL 70-105 (test owly=051) CALCIUM (BEAKER) (test 9.2 mg/dL 8.4-10.2 gfgb=174) EGFR (BEAKER) (test 34 mL/min/1.73 sq m ESTIMATED GFR IS NOT yzne=4055) ACCURATE CREATININE CLEARANCE IN PREDICTING GLOMERULAR FILTRATION RATE. ESTIMATED GFR IS NOT APPLICABLE FOR DIALYSIS PATIENTS. POCT-GLUCOSE [id number] 08:15:00 Test Item Value Reference Range Comments POC-GLUCOSE METER (BEAKER) 225 mg/dL 70-110 TESTED AT [address] (test bpzi=8619) [facility] [address] CBC W/PLT COUNT & AUTO [id number] 08:02:00 Test Item Value Reference Range Comments WHITE BLOOD CELL COUNT (BEAKER) (test kpgy=895) 13.4 K/ L 3.5-10.5 RED BLOOD CELL COUNT (BEAKER) (test josw=166) 3.10 M/ L 4.63-6.08 HEMOGLOBIN (BEAKER) (test hecq=553) 8.8 GM/DL 13.7-17.5 HEMATOCRIT (BEAKER) (test qqux=138) 27.7 % 40.1-51.0 MEAN CORPUSCULAR VOLUME (BEAKER) (test xpwt=085) 89.4 fL 79.0-92.2 MEAN CORPUSCULAR HEMOGLOBIN (BEAKER) (test 28.4 pg 25.7-32.2 rcty=759) MEAN CORPUSCULAR HEMOGLOBIN CONC (BEAKER) (test 31.8 GM/DL 32.3-36.5 vjzo=684) RED CELL DISTRIBUTION WIDTH (BEAKER) (test 13.7 % 11.6-14.4 aera=781) PLATELET COUNT (BEAKER) (test isco=821) 551 K/CU MM 150-450 MEAN PLATELET VOLUME (BEAKER) (test ayum=664) 8.9 fL 9.4-12.4 NUCLEATED RED BLOOD CELLS (BEAKER) (test 0 /100 WBC 0-0 zvmy=526) NEUTROPHILS RELATIVE PERCENT (BEAKER) (test 69 % musq=016) LYMPHOCYTES RELATIVE PERCENT (BEAKER) (test 12 % arla=196) MONOCYTES RELATIVE PERCENT (BEAKER) (test 11 % obwp=965) EOSINOPHILS RELATIVE PERCENT (BEAKER) (test 6 % hvtn=985) BASOPHILS RELATIVE PERCENT (BEAKER) (test 1 % mciw=415) NEUTROPHILS ABSOLUTE COUNT (BEAKER) (test 9.32 K/ L 1.78-5.38 hkuo=482) LYMPHOCYTES ABSOLUTE COUNT (BEAKER) (test 1.57 K/ L 1.32-3.57 zcia=371) MONOCYTES ABSOLUTE COUNT (BEAKER) (test 1.42 K/ L 0.30-0.82 xdgd=698) EOSINOPHILS ABSOLUTE COUNT (BEAKER) (test 0.84 K/ L 0.04-0.54 diis=920) BASOPHILS ABSOLUTE COUNT (BEAKER) (test 0.09 K/ L 0.01-0.08 vyow=346) IMMATURE GRANULOCYTES-RELATIVE PERCENT (BEAKER) 1 % 0-1 (test oywe=7909) POCT-GLUCOSE [id number] 21:16:00 Test Item Value Reference Range Comments POC-GLUCOSE METER (BEAKER) 302 mg/dL 70-110 TESTED AT [address] (test bqfe=4511) [place] [address] POCT-GLUCOSE [id number] 17:13:00 Test Item Value Reference Range Comments POC-GLUCOSE METER (BEAKER) 208 mg/dL 70-110 TESTED AT [address] (test jfis=8206) [place] [address] POCT-GLUCOSE [id number] 13:20:00 Test Item Value Reference Range Comments POC-GLUCOSE METER (BEAKER) 252 mg/dL 70-110 TESTED AT [address] (test awss=0610) [place] [address] POCT-GLUCOSE [id number] 08:25:00 Test Item Value Reference Range Comments POC-GLUCOSE METER (BEAKER) 229 mg/dL 70-110 TESTED AT [address] (test ugfh=4178) [place] [address] BASIC METABOLIC [id number] 06:57:00 Test Item Value Reference Range Comments SODIUM (BEAKER) (test 131 meq/L 136-145 yqei=026) POTASSIUM (BEAKER) (test 4.4 meq/L 3.5-5.1 bflt=327) CHLORIDE (BEAKER) (test 102 meq/L 98-107 zahx=967) CO2 (BEAKER) (test 19 meq/L 22-29 bmqi=992) BLOOD UREA NITROGEN 43 mg/dL 7-21 (BEAKER) (test gxnh=780) CREATININE (BEAKER) (test 2.24 mg/dL 0.57-1.25 jekn=866) GLUCOSE RANDOM (BEAKER) 198 mg/dL 70-105 (test xrnw=009) CALCIUM (BEAKER) (test 8.7 mg/dL 8.4-10.2 ttxd=637) EGFR (BEAKER) (test 28 mL/min/1.73 sq m ESTIMATED GFR IS NOT neao=2470) ACCURATE CREATININE CLEARANCE IN PREDICTING GLOMERULAR FILTRATION RATE. ESTIMATED GFR IS NOT APPLICABLE FOR DIALYSIS PATIENTS. [id number] 06:55:00 Test Item Value Reference Range Comments PHOSPHORUS (BEAKER) (test vvtb=351) 3.8 mg/dL 2.3-4.7 [id number] 06:55:00 Test Item Value Reference Range Comments MAGNESIUM (BEAKER) (test jjyf=948) 1.7 mg/dL 1.6-2.6 CBC W/PLT COUNT & AUTO [id number] 06:09:00 Test Item Value Reference Range Comments WHITE BLOOD CELL COUNT (BEAKER) (test byid=905) 14.0 K/ L 3.5-10.5 RED BLOOD CELL COUNT (BEAKER) (test gxdm=113) 3.12 M/ L 4.63-6.08 HEMOGLOBIN (BEAKER) (test buki=635) 9.0 GM/DL 13.7-17.5 HEMATOCRIT (BEAKER) (test jdnc=544) 27.6 % 40.1-51.0 MEAN CORPUSCULAR VOLUME (BEAKER) (test hldh=889) 88.5 fL 79.0-92.2 MEAN CORPUSCULAR HEMOGLOBIN (BEAKER) (test 28.8 pg 25.7-32.2 vech=383) MEAN CORPUSCULAR HEMOGLOBIN CONC (BEAKER) (test 32.6 GM/DL 32.3-36.5 vsaa=777) RED CELL DISTRIBUTION WIDTH (BEAKER) (test 13.6 % 11.6-14.4 lvfe=510) PLATELET COUNT (BEAKER) (test cgdq=728) 451 K/CU MM 150-450 MEAN PLATELET VOLUME (BEAKER) (test fnwv=137) 8.8 fL 9.4-12.4 NUCLEATED RED BLOOD CELLS (BEAKER) (test 0 /100 WBC 0-0 xhjh=076) NEUTROPHILS RELATIVE PERCENT (BEAKER) (test 70 % deai=378) LYMPHOCYTES RELATIVE PERCENT (BEAKER) (test 12 % tfcp=448) MONOCYTES RELATIVE PERCENT (BEAKER) (test 10 % jran=551) EOSINOPHILS RELATIVE PERCENT (BEAKER) (test 6 % oybz=494) BASOPHILS RELATIVE PERCENT (BEAKER) (test 1 % gruv=193) NEUTROPHILS ABSOLUTE COUNT (BEAKER) (test 9.86 K/ L 1.78-5.38 diwr=499) LYMPHOCYTES ABSOLUTE COUNT (BEAKER) (test 1.63 K/ L 1.32-3.57 eldb=486) MONOCYTES ABSOLUTE COUNT (BEAKER) (test 1.40 K/ L 0.30-0.82 rgfm=742) EOSINOPHILS ABSOLUTE COUNT (BEAKER) (test 0.85 K/ L 0.04-0.54 srvw=876) BASOPHILS ABSOLUTE COUNT (BEAKER) (test 0.08 K/ L 0.01-0.08 jlge=219) IMMATURE GRANULOCYTES-RELATIVE PERCENT (BEAKER) 1 % 0-1 (test fbec=3215) POCT-GLUCOSE [id number] 17:30:00 Test Item Value Reference Range Comments POC-GLUCOSE METER (BEAKER) 149 mg/dL 70-110 TESTED AT [address] (test wmak=5382) [facility] [address] POCT-GLUCOSE [id number] 12:10:00 Test Item Value Reference Range Comments POC-GLUCOSE METER (BEAKER) 245 mg/dL 70-110 TESTED AT [address] (test jogh=3271) [facility] [address] CBC W/PLT COUNT & AUTO [id number] 10:30:00 Test Item Value Reference Range Comments WHITE BLOOD CELL COUNT (BEAKER) (test tion=877) 12.6 K/ L 3.5-10.5 RED BLOOD CELL COUNT (BEAKER) (test jlic=798) 2.95 M/ L 4.63-6.08 HEMOGLOBIN (BEAKER) (test cvvx=011) 8.6 GM/DL 13.7-17.5 HEMATOCRIT (BEAKER) (test oqyo=410) 26.3 % 40.1-51.0 MEAN CORPUSCULAR VOLUME (BEAKER) (test ukkq=442) 89.2 fL 79.0-92.2 MEAN CORPUSCULAR HEMOGLOBIN (BEAKER) (test 29.2 pg 25.7-32.2 ysnp=973) MEAN CORPUSCULAR HEMOGLOBIN CONC (BEAKER) (test 32.7 GM/DL 32.3-36.5 kzcn=604) RED CELL DISTRIBUTION WIDTH (BEAKER) (test 13.8 % 11.6-14.4 rzod=951) PLATELET COUNT (BEAKER) (test yjfg=234) 428 K/CU MM 150-450 MEAN PLATELET VOLUME (BEAKER) (test mmcc=816) 9.1 fL 9.4-12.4 NUCLEATED RED BLOOD CELLS (BEAKER) (test 0 /100 WBC 0-0 khjg=415) (CELLAVISION MANUAL DIFF)2017-11-30 10:30:00 Test Item Value Reference Range Comments NEUTROPHILS - REL (CELLAVISION)(BEAKER) (test 83 % pmaf=8928) LYMPHOCYTES - REL (CELLAVISION)(BEAKER) (test 8 % fhlb=7262) MONOCYTES - REL (CELLAVISION)(BEAKER) (test 4 % aqmm=5877) EOSINOPHILS - REL (CELLAVISION)(BEAKER) (test 4 % turm=0184) BASOPHILS - REL (CELLAVISION)(BEAKER) (test 1 % onwk=7871) NEUTROPHILS - ABS (CELLAVISION)(BEAKER) (test 10.46 K/ul 1.78-5.38 aytj=0499) LYMPHOCYTES - ABS (CELLAVISION)(BEAKER) (test 1.01 K/ul 1.32-3.57 lxlf=9281) MONOCYTES - ABS (CELLAVISION)(BEAKER) (test 0.50 K/uL 0.30-0.82 emse=3598) EOSINOPHILS - ABS (CELLAVISION)(BEAKER) (test 0.50 K/uL 0.04-0.54 yzhi=2551) BASOPHILS - ABS (CELLAVISION)(BEAKER) (test 0.13 K/uL 0.01-0.08 vymu=0089) TOTAL COUNTED (BEAKER) (test qdqs=2742) 100 MANUAL NRBC PER 100 CELLS (BEAKER) (test 1 /100 WBC 0-0 bbdx=0643) WBC MORPHOLOGY (BEAKER) (test hbpp=925) Normal PLT MORPHOLOGY (BEAKER) (test dstm=259) Normal ANISOCYTOSIS (BEAKER) (test xuad=283) 1+ few MICROCYTES (BEAKER) (test npur=595) 1+ few ARTIFACT (CELLAVISION)(BEAKER) (test vons=6810) Present PLATELET CONCENTRATION (CELLAVISION)(BEAKER) Adequate (test mgri=1629) Received comment: User comments: Slide comments:POCT-GLUCOSE [id number] 08: 03:00 Test Item Value Reference Range Comments POC-GLUCOSE METER (BEAKER) 242 mg/dL 70-110 TESTED AT [facility] [address] [facility] (test xcfb=6223) [facility] [address] [id number] 07:26:00 Test Item Value Reference Range Comments PHOSPHORUS (BEAKER) (test zfkk=566) 3.6 mg/dL 2.3-4.7 [id number] 07:26:00 Test Item Value Reference Range Comments MAGNESIUM (BEAKER) (test knyy=629) 1.9 mg/dL 1.6-2.6 BASIC METABOLIC [id number] 07:26:00 Test Item Value Reference Range Comments SODIUM (BEAKER) (test 131 meq/L 136-145 aiyz=811) POTASSIUM (BEAKER) (test 4.3 meq/L 3.5-5.1 jdcl=484) CHLORIDE (BEAKER) (test 102 meq/L 98-107 jsfx=385) CO2 (BEAKER) (test 20 meq/L 22-29 eldn=060) BLOOD UREA NITROGEN 44 mg/dL 7-21 (BEAKER) (test nlec=906) CREATININE (BEAKER) (test 1.98 mg/dL 0.57-1.25 lvmd=728) GLUCOSE RANDOM (BEAKER) 216 mg/dL 70-105 (test ceet=649) CALCIUM (BEAKER) (test 8.8 mg/dL 8.4-10.2 zehn=641) EGFR (BEAKER) (test 33 mL/min/1.73 sq m ESTIMATED GFR IS NOT ucvt=3362) ACCURATE CREATININE CLEARANCE IN PREDICTING GLOMERULAR FILTRATION RATE. ESTIMATED GFR IS NOT APPLICABLE FOR DIALYSIS PATIENTS. POCT-GLUCOSE [id number] 21:03:00 Test Item Value Reference Range Comments POC-GLUCOSE METER (BEAKER) 414 mg/dL 70-110 TESTED AT [address] (test fejq=0080) [facility] [address] POCT-GLUCOSE [id number] 17:11:00 Test Item Value Reference Range Comments POC-GLUCOSE METER (BEAKER) 201 mg/dL 70-110 TESTED AT [address] (test gqpn=1092) [facility] [address] POCT-GLUCOSE [id number] 11:55:00 Test Item Value Reference Range Comments POC-GLUCOSE METER (BEAKER) 228 mg/dL 70-110 TESTED AT [address] (test zcjv=3168) [facility] [id number] CALCIUM, [id number] 08:13:00 Test Item Value Reference Range Comments CALCIUM IONIZED (BEAKER) (test kozv=339) 1.08 mmol/L 1.12-1.27 PH, BLOOD (BEAKER) (test gntz=5072) 7.32 CBC W/PLT COUNT & AUTO [id number] 07:52:00 Test Item Value Reference Range Comments WHITE BLOOD CELL COUNT (BEAKER) (test avtg=301) 12.8 K/ L 3.5-10.5 RED BLOOD CELL COUNT (BEAKER) (test itzc=515) 3.11 M/ L 4.63-6.08 HEMOGLOBIN (BEAKER) (test cank=396) 9.0 GM/DL 13.7-17.5 HEMATOCRIT (BEAKER) (test yccg=187) 28.0 % 40.1-51.0 MEAN CORPUSCULAR VOLUME (BEAKER) (test ckzo=527) 90.0 fL 79.0-92.2 MEAN CORPUSCULAR HEMOGLOBIN (BEAKER) (test 28.9 pg 25.7-32.2 mbhb=296) MEAN CORPUSCULAR HEMOGLOBIN CONC (BEAKER) (test 32.1 GM/DL 32.3-36.5 dtkr=149) RED CELL DISTRIBUTION WIDTH (BEAKER) (test 13.8 % 11.6-14.4 lzgm=556) PLATELET COUNT (BEAKER) (test uluv=861) 432 K/CU MM 150-450 MEAN PLATELET VOLUME (BEAKER) (test pnov=103) 9.0 fL 9.4-12.4 NUCLEATED RED BLOOD CELLS (BEAKER) (test 0 /100 WBC 0-0 vhzq=984) NEUTROPHILS RELATIVE PERCENT (BEAKER) (test 71 % gswc=029) LYMPHOCYTES RELATIVE PERCENT (BEAKER) (test 10 % yyul=475) MONOCYTES RELATIVE PERCENT (BEAKER) (test 11 % lasx=857) EOSINOPHILS RELATIVE PERCENT (BEAKER) (test 6 % necg=847) BASOPHILS RELATIVE PERCENT (BEAKER) (test 1 % bafy=052) NEUTROPHILS ABSOLUTE COUNT (BEAKER) (test 9.05 K/ L 1.78-5.38 vtjy=316) LYMPHOCYTES ABSOLUTE COUNT (BEAKER) (test 1.33 K/ L 1.32-3.57 ywgk=829) MONOCYTES ABSOLUTE COUNT (BEAKER) (test 1.42 K/ L 0.30-0.82 qcwc=603) EOSINOPHILS ABSOLUTE COUNT (BEAKER) (test 0.76 K/ L 0.04-0.54 rtjf=797) BASOPHILS ABSOLUTE COUNT (BEAKER) (test 0.07 K/ L 0.01-0.08 mmmr=080) IMMATURE GRANULOCYTES-RELATIVE PERCENT (BEAKER) 1 % 0-1 (test fqna=1749) [id number] 07:49:00 Test Item Value Reference Range Comments PHOSPHORUS (BEAKER) (test zbbk=762) 3.9 mg/dL 2.3-4.7 [id number] 07:49:00 Test Item Value Reference Range Comments MAGNESIUM (BEAKER) (test omby=250) 1.8 mg/dL 1.6-2.6 COMPREHENSIVE METABOLIC [id number] 07:49:00 Test Item Value Reference Range Comments TOTAL PROTEIN (BEAKER) 6.2 gm/dL 6.0-8.3 (test imgg=212) ALBUMIN (BEAKER) (test 2.9 g/dL 3.5-5.0 npcb=7804) ALKALINE PHOSPHATASE 314 U/L 40-150 (BEAKER) (test mtlu=827) BILIRUBIN TOTAL (BEAKER) 0.3 mg/dL 0.2-1.2 (test ktgs=747) SODIUM (BEAKER) (test 132 meq/L 136-145 qazc=731) POTASSIUM (BEAKER) (test 4.2 meq/L 3.5-5.1 lauj=310) CHLORIDE (BEAKER) (test 102 meq/L 98-107 snst=066) CO2 (BEAKER) (test 19 meq/L 22-29 ntyw=166) BLOOD UREA NITROGEN 44 mg/dL 7-21 (BEAKER) (test gyfd=878) CREATININE (BEAKER) (test 2.15 mg/dL 0.57-1.25 htnc=144) GLUCOSE RANDOM (BEAKER) 219 mg/dL 70-105 (test udxw=372) CALCIUM (BEAKER) (test 8.7 mg/dL 8.4-10.2 qjxu=318) AST (SGOT) (BEAKER) (test 23 U/L 5-34 mvci=700) ALT (SGPT) (BEAKER) (test 29 U/L 6-55 yopa=338) EGFR (BEAKER) (test 30 mL/min/1.73 sq m ESTIMATED GFR IS NOT lwsy=5339) ACCURATE CREATININE CLEARANCE IN PREDICTING GLOMERULAR FILTRATION RATE. ESTIMATED GFR IS NOT APPLICABLE FOR DIALYSIS PATIENTS. POCT-GLUCOSE [id number] 07:34:00 Test Item Value Reference Range Comments POC-GLUCOSE METER (BEAKER) 251 mg/dL 70-110 TESTED AT [address] (test jkpk=7528) [facility] [id number] POCT-GLUCOSE [id number] 20:55:00 Test Item Value Reference Range Comments POC-GLUCOSE METER (BEAKER) 196 mg/dL 70-110 TESTED AT [address] (test kmhf=5539) [facility] [id number] HEMOGLOBIN AND [id number] 17:55:00 Test Item Value Reference Range Comments HEMOGLOBIN (BEAKER) (test ebye=413) 9.0 GM/DL 13.7-17.5 HEMATOCRIT (BEAKER) (test qkrb=387) 27.6 % 40.1-51.0 Call [id number] 13:46:00 Test Item Value Reference Range Comments POC-GLUCOSE METER (BEAKER) 245 mg/dL 70-110 TESTED AT [address] (test fpee=2764) [place] [address] U/S, BIOPSY, RENAL (KIDNEY)2017-11-28 10:42:00Reason for exam:->BASSEM, nephrotic proteinuriaFINAL REPORT Ultrasound guided core biopsy of the left eyak kidney dated 11/28/2017 Procedure: Core biopsy of the left eyak kidney. Clinical Indication: Proteinuria Sedation: Moderate sedation was administered. 0.5 mg of Versed and 25 mcg fentanyl IV was used for moderate sedation monitored under my direction. Total intraservice time of the sedation was 50 minutes. The patient's vital signs were monitored throughout the procedure and recorded in the patient's medical recordby the nurse. Anesthesia: 1% Xylocaine mixed with sodium bicarbonate local anesthesia. Technique: After obtained informed consent, ultrasound guided core biopsy of the left eyak kidney was performed under usual sterile technique. Using an 18 gauge core biopsy needle, puncture was made posteriorly onthe left with real time ultrasound guidance. 2 passes were performed with sufficient material for histology. Patient tolerated procedure well. Complication: None Estimated Blood Loss: None The specimen was sent to pathology. Impression: Successful ultrasound -guided core biopsy of the left eyak kidney. Signed: Davon Diallo Verified Date/Time: 11/28/2017 10:42:49 Reading Location: [address] Ultrasound Reading Room Electronically signed by: DAVON DIALLO M.D. on 10/2017 10:42 AMPOCT-GLUCOSE [id number] 08:29:00 Test Item Value Reference Range Comments POC-GLUCOSE METER (BEAKER) 286 mg/dL 70-110 TESTED AT [address] (test rurg=5258) [place] [address] CBC W/PLT COUNT & AUTO [id number] 05:46:00 Test Item Value Reference Range Comments WHITE BLOOD CELL COUNT (BEAKER) (test runi=519) 11.4 K/ L 3.5-10.5 RED BLOOD CELL COUNT (BEAKER) (test abxb=031) 2.96 M/ L 4.63-6.08 HEMOGLOBIN (BEAKER) (test mlii=563) 8.8 GM/DL 13.7-17.5 HEMATOCRIT (BEAKER) (test vtrg=110) 26.4 % 40.1-51.0 MEAN CORPUSCULAR VOLUME (BEAKER) (test zovm=827) 89.2 fL 79.0-92.2 MEAN CORPUSCULAR HEMOGLOBIN (BEAKER) (test 29.7 pg 25.7-32.2 imfi=356) MEAN CORPUSCULAR HEMOGLOBIN CONC (BEAKER) (test 33.3 GM/DL 32.3-36.5 tftg=339) RED CELL DISTRIBUTION WIDTH (BEAKER) (test 13.7 % 11.6-14.4 adlz=436) PLATELET COUNT (BEAKER) (test pesz=682) 401 K/CU MM 150-450 MEAN PLATELET VOLUME (BEAKER) (test ziqw=391) 9.0 fL 9.4-12.4 NUCLEATED RED BLOOD CELLS (BEAKER) (test 0 /100 WBC 0-0 peeg=732) NEUTROPHILS RELATIVE PERCENT (BEAKER) (test 67 % eolq=237) LYMPHOCYTES RELATIVE PERCENT (BEAKER) (test 11 % szfp=579) MONOCYTES RELATIVE PERCENT (BEAKER) (test 14 % ypgj=006) EOSINOPHILS RELATIVE PERCENT (BEAKER) (test 7 % ldbw=501) BASOPHILS RELATIVE PERCENT (BEAKER) (test 1 % oxsr=813) NEUTROPHILS ABSOLUTE COUNT (BEAKER) (test 7.70 K/ L 1.78-5.38 fngl=148) LYMPHOCYTES ABSOLUTE COUNT (BEAKER) (test 1.26 K/ L 1.32-3.57 cxer=794) MONOCYTES ABSOLUTE COUNT (BEAKER) (test 1.55 K/ L 0.30-0.82 dfdi=542) EOSINOPHILS ABSOLUTE COUNT (BEAKER) (test 0.74 K/ L 0.04-0.54 weev=863) BASOPHILS ABSOLUTE COUNT (BEAKER) (test 0.06 K/ L 0.01-0.08 kyay=602) IMMATURE GRANULOCYTES-RELATIVE PERCENT (BEAKER) 1 % 0-1 (test gfse=5731) COMPREHENSIVE METABOLIC [id number] 05:41:00 Test Item Value Reference Range Comments TOTAL PROTEIN (BEAKER) 6.0 gm/dL 6.0-8.3 (test zxje=092) ALBUMIN (BEAKER) (test 2.9 g/dL 3.5-5.0 kkrh=7405) ALKALINE PHOSPHATASE 346 U/L 40-150 (BEAKER) (test xepw=264) BILIRUBIN TOTAL (BEAKER) 0.2 mg/dL 0.2-1.2 (test dstm=482) SODIUM (BEAKER) (test 131 meq/L 136-145 mcik=180) POTASSIUM (BEAKER) (test 3.9 meq/L 3.5-5.1 esmm=840) CHLORIDE (BEAKER) (test 103 meq/L 98-107 akan=647) CO2 (BEAKER) (test 20 meq/L 22-29 chzr=565) BLOOD UREA NITROGEN 44 mg/dL 7-21 (BEAKER) (test cuoa=985) CREATININE (BEAKER) (test 2.41 mg/dL 0.57-1.25 dgad=609) GLUCOSE RANDOM (BEAKER) 288 mg/dL 70-105 (test ewqi=994) CALCIUM (BEAKER) (test 8.4 mg/dL 8.4-10.2 onra=831) AST (SGOT) (BEAKER) (test 24 U/L 5-34 jefp=718) ALT (SGPT) (BEAKER) (test 29 U/L 6-55 xweo=532) EGFR (BEAKER) (test 26 mL/min/1.73 sq m ESTIMATED GFR IS NOT lwxv=4837) ACCURATE CREATININE CLEARANCE IN PREDICTING GLOMERULAR FILTRATION RATE. ESTIMATED GFR IS NOT APPLICABLE FOR DIALYSIS PATIENTS. [id number] 05:40:00 Test Item Value Reference Range Comments PHOSPHORUS (BEAKER) (test hyfn=160) 3.9 mg/dL 2.3-4.7 [id number] 05:40:00 Test Item Value Reference Range Comments MAGNESIUM (BEAKER) (test whoh=070) 1.6 mg/dL 1.6-2.6 CALCIUM, [id number] 05:30:00 Test Item Value Reference Range Comments CALCIUM IONIZED (BEAKER) (test jjip=996) 1.05 mmol/L 1.12-1.27 PH, BLOOD (BEAKER) (test hayk=1651) 7.36 POCT-GLUCOSE [id number] 21:53:00 Test Item Value Reference Range Comments POC-GLUCOSE METER (BEAKER) 346 mg/dL 70-110 Notified [facility]IQU[facility]/TESTED AT [facility] (test jpnb=2457) [address] [facility] [address] POCT-GLUCOSE [id number] 17:08:00 Test Item Value Reference Range Comments POC-GLUCOSE METER (BEAKER) 365 mg/dL 70-110 Notified [facility]IQUITA COOMBS/TESTED AT [facility] (test ltck=4927) [address] [place] [address] POCT-GLUCOSE [id number] 17:01:00 Test Item Value Reference Range Comments POC-GLUCOSE METER (BEAKER) 294 mg/dL 70-110 TESTED AT [facility] [address] [place] [address] (test qjtf=4712) [facility] [address] URINE IMMUNOFIXATION, 24 [id number] 10:11:00 Test Item Value Reference Range Comments VOLUME, TOTAL (BEAKER) (test 1700 ml uriy=5455) PROTEIN, URINE (BEAKER) 176 mg/dL 0-14 (test hllv=7045) PROTEIN, 24HR URINE (BEAKER) 2992 mg/24hr 0-300 (test bmsc=5980) ALBUMIN, 24HR URINE (BEAKER) 30.3 % (test onwf=1787) GLOBULIN, 24HR URINE 69.7 % (BEAKER) (test rnzt=1917) URINE MATEO ID (BEAKER) (test No monoclonal proteins or vfub=2702) monoclonal free light chains detected. [id number] Mary Robledo MD (BEAKER) (test uuic=3604) (electronic signature) RAD, CHEST, 1 VIEW, NON [id number] 08:40:00Reason for exam:->edemaShould this be performed at the bedside?->YesFINAL REPORT CLINICAL HISTORY: edema TECHNIQUE: 1 view of the chest. COMPARISON: 11/18/2017 IMPRESSION: The right central line remains in the SVC. Mild bilateral airspace opacities have decreased. Trace bilateral pleural effusions remain. The cardiomediastinal silhouette is magnified by technique. Signed: Loida Phillips MDReport Verified Date/Time: 11/27/2017 08:40:13 Reading Location: [facility] Radiology Reading Room Electronically signed by: LOIDA PHILLIPS M.D. 11/27/2017 08:40 AMPOCT-GLUCOSE [id number] 08:13:00 Test Item Value Reference Range Comments POC-GLUCOSE METER (BEAKER) 193 mg/dL 70-110 TESTED AT [facility] [address] [facility] (test yntz=8251) [facility] [address] COMPREHENSIVE METABOLIC [id number] 06:59:00 Test Item Value Reference Range Comments TOTAL PROTEIN (BEAKER) 5.9 gm/dL 6.0-8.3 (test cdka=460) ALBUMIN (BEAKER) (test 2.8 g/dL 3.5-5.0 ydul=2023) ALKALINE PHOSPHATASE 297 U/L 40-150 (BEAKER) (test kqwk=171) BILIRUBIN TOTAL (BEAKER) 0.3 mg/dL 0.2-1.2 (test bued=670) SODIUM (BEAKER) (test 132 meq/L 136-145 ekvc=672) POTASSIUM (BEAKER) (test 3.7 meq/L 3.5-5.1 xsus=248) CHLORIDE (BEAKER) (test 103 meq/L 98-107 kmhw=687) CO2 (BEAKER) (test 19 meq/L 22-29 pocw=954) BLOOD UREA NITROGEN 42 mg/dL 7-21 (BEAKER) (test gtkm=473) CREATININE (BEAKER) (test 2.33 mg/dL 0.57-1.25 qgyx=407) GLUCOSE RANDOM (BEAKER) 168 mg/dL 70-105 (test foss=695) CALCIUM (BEAKER) (test 8.3 mg/dL 8.4-10.2 cvrj=105) AST (SGOT) (BEAKER) (test 27 U/L 5-34 tmsi=925) ALT (SGPT) (BEAKER) (test 31 U/L 6-55 fvxk=585) EGFR (BEAKER) (test 27 mL/min/1.73 sq m ESTIMATED GFR IS NOT easp=1130) ACCURATE CREATININE CLEARANCE IN PREDICTING GLOMERULAR FILTRATION RATE. ESTIMATED GFR IS NOT APPLICABLE FOR DIALYSIS PATIENTS. [id number] 06:57:00 Test Item Value Reference Range Comments PHOSPHORUS (BEAKER) (test hofa=101) 3.9 mg/dL 2.3-4.7 [id number] 06:57:00 Test Item Value Reference Range Comments MAGNESIUM (BEAKER) (test ydzx=115) 1.6 mg/dL 1.6-2.6 CALCIUM, [id number] 06:56:00 Test Item Value Reference Range Comments CALCIUM IONIZED (BEAKER) (test tcpz=402) 1.02 mmol/L 1.12-1.27 PH, BLOOD (BEAKER) (test swsm=2128) 7.37 B-TYPE NATRIURETIC FACTOR (BNP)2017-11-27 06:43:00 Test Item Value Reference Range Comments B-TYPE NATRIURETIC PEPTIDE (BEAKER) (test 109 pg/mL 0-100 gpue=182) CBC W/PLT COUNT & AUTO [id number] 06:32:00 Test Item Value Reference Range Comments WHITE BLOOD CELL COUNT (BEAKER) (test jcgg=852) 11.0 K/ L 3.5-10.5 RED BLOOD CELL COUNT (BEAKER) (test agjy=303) 2.91 M/ L 4.63-6.08 HEMOGLOBIN (BEAKER) (test zerp=929) 8.5 GM/DL 13.7-17.5 HEMATOCRIT (BEAKER) (test hzgy=649) 25.7 % 40.1-51.0 MEAN CORPUSCULAR VOLUME (BEAKER) (test zkje=851) 88.3 fL 79.0-92.2 MEAN CORPUSCULAR HEMOGLOBIN (BEAKER) (test 29.2 pg 25.7-32.2 yguy=946) MEAN CORPUSCULAR HEMOGLOBIN CONC (BEAKER) (test 33.1 GM/DL 32.3-36.5 mvjn=122) RED CELL DISTRIBUTION WIDTH (BEAKER) (test 13.6 % 11.6-14.4 uiyp=415) PLATELET COUNT (BEAKER) (test vtxq=528) 337 K/CU MM 150-450 MEAN PLATELET VOLUME (BEAKER) (test pbjj=325) 9.1 fL 9.4-12.4 NUCLEATED RED BLOOD CELLS (BEAKER) (test 0 /100 WBC 0-0 tnkj=793) NEUTROPHILS RELATIVE PERCENT (BEAKER) (test 66 % bfyl=371) LYMPHOCYTES RELATIVE PERCENT (BEAKER) (test 11 % cmeu=773) MONOCYTES RELATIVE PERCENT (BEAKER) (test 13 % xhcx=636) EOSINOPHILS RELATIVE PERCENT (BEAKER) (test 8 % epvs=619) BASOPHILS RELATIVE PERCENT (BEAKER) (test 1 % eqpq=313) NEUTROPHILS ABSOLUTE COUNT (BEAKER) (test 7.21 K/ L 1.78-5.38 eumr=800) LYMPHOCYTES ABSOLUTE COUNT (BEAKER) (test 1.23 K/ L 1.32-3.57 zoxv=312) MONOCYTES ABSOLUTE COUNT (BEAKER) (test 1.43 K/ L 0.30-0.82 npqs=684) EOSINOPHILS ABSOLUTE COUNT (BEAKER) (test 0.89 K/ L 0.04-0.54 vqzh=908) BASOPHILS ABSOLUTE COUNT (BEAKER) (test 0.07 K/ L 0.01-0.08 cppl=686) IMMATURE GRANULOCYTES-RELATIVE PERCENT (BEAKER) 2 % 0-1 (test ldgk=9981) POCT-GLUCOSE [id number] 21:34:00 Test Item Value Reference Range Comments POC-GLUCOSE METER (BEAKER) 244 mg/dL 70-110 TESTED AT [address] (test qjnr=0719) [place] [address] POCT-GLUCOSE [id number] 17:02:00 Test Item Value Reference Range Comments POC-GLUCOSE METER (BEAKER) 192 mg/dL 70-110 TESTED AT [address] (test bayo=2872) [place] [id number] POCT-GLUCOSE [id number] 11:45:00 Test Item Value Reference Range Comments POC-GLUCOSE METER (BEAKER) 219 mg/dL 70-110 TESTED AT [address] (test ymyb=2641) [place] [id number] COMPREHENSIVE METABOLIC [id number] 08:04:00 Test Item Value Reference Range Comments TOTAL PROTEIN (BEAKER) 6.0 gm/dL 6.0-8.3 (test eayg=012) ALBUMIN (BEAKER) (test 2.8 g/dL 3.5-5.0 yytx=7479) ALKALINE PHOSPHATASE 334 U/L 40-150 (BEAKER) (test jyph=250) BILIRUBIN TOTAL (BEAKER) 0.3 mg/dL 0.2-1.2 (test pupc=183) SODIUM (BEAKER) (test 128 meq/L 136-145 ygso=162) POTASSIUM (BEAKER) (test 3.8 meq/L 3.5-5.1 laiy=238) CHLORIDE (BEAKER) (test 99 meq/L 98-107 lgfy=573) CO2 (BEAKER) (test 19 meq/L 22-29 fore=810) BLOOD UREA NITROGEN 43 mg/dL 7-21 (BEAKER) (test krmf=105) CREATININE (BEAKER) (test 2.60 mg/dL 0.57-1.25 miws=881) GLUCOSE RANDOM (BEAKER) 214 mg/dL 70-105 (test envl=783) CALCIUM (BEAKER) (test 8.1 mg/dL 8.4-10.2 tnsx=105) AST (SGOT) (BEAKER) (test 34 U/L 5-34 glwf=544) ALT (SGPT) (BEAKER) (test 38 U/L 6-55 cbqw=668) EGFR (BEAKER) (test 24 mL/min/1.73 sq m ESTIMATED GFR IS NOT xedq=2718) ACCURATE CREATININE CLEARANCE IN PREDICTING GLOMERULAR FILTRATION RATE. ESTIMATED GFR IS NOT APPLICABLE FOR DIALYSIS PATIENTS. [id number] 07:58:00 Test Item Value Reference Range Comments PHOSPHORUS (BEAKER) (test oqln=356) 3.5 mg/dL 2.3-4.7 [id number] 07:58:00 Test Item Value Reference Range Comments MAGNESIUM (BEAKER) (test vpym=500) 1.5 mg/dL 1.6-2.6 POCT-GLUCOSE [id number] 07:46:00 Test Item Value Reference Range Comments POC-GLUCOSE METER (BEAKER) 239 mg/dL 70-110 TESTED AT [facility] [address] [facility] (test ooza=6163) [facility] [address] CALCIUM, [id number] 07:07:00 Test Item Value Reference Range Comments CALCIUM IONIZED (BEAKER) (test tmjx=389) 0.99 mmol/L 1.12-1.27 PH, BLOOD (BEAKER) (test xgbc=7439) 7.36 PROTHROMBIN TIME/[id number] 06:47:00 Test Item Value Reference Range Comments PROTIME (BEAKER) (test jmmk=982) 15.1 seconds 11.7-14.7 INR (BEAKER) (test bzms=923) 1.2 <=5.9 RECOMMENDED COUMADIN/WARFARIN INR THERAPY RANGESSTANDARD DOSE: 2.0 - 3.0 Includes: PROPHYLAXIS forvenous thrombosis, systemic embolization; TREATMENT for venous thrombosis and/or pulmonary embolus.HIGH RISK: Target INR is 2.5-3.5 for patients with mechanical heart valves.CBC W/PLT COUNT & AUTO [id number] 06:46:00 Test Item Value Reference Range Comments WHITE BLOOD CELL COUNT (BEAKER) (test wdfc=398) 11.4 K/ L 3.5-10.5 RED BLOOD CELL COUNT (BEAKER) (test cujx=634) 3.00 M/ L 4.63-6.08 HEMOGLOBIN (BEAKER) (test akgg=460) 8.6 GM/DL 13.7-17.5 HEMATOCRIT (BEAKER) (test dfxz=186) 26.6 % 40.1-51.0 MEAN CORPUSCULAR VOLUME (BEAKER) (test ewzh=288) 88.7 fL 79.0-92.2 MEAN CORPUSCULAR HEMOGLOBIN (BEAKER) (test 28.7 pg 25.7-32.2 sdiv=098) MEAN CORPUSCULAR HEMOGLOBIN CONC (BEAKER) (test 32.3 GM/DL 32.3-36.5 cfsf=519) RED CELL DISTRIBUTION WIDTH (BEAKER) (test 13.6 % 11.6-14.4 tkdh=494) PLATELET COUNT (BEAKER) (test toyb=674) 337 K/CU MM 150-450 MEAN PLATELET VOLUME (BEAKER) (test xzho=876) 9.3 fL 9.4-12.4 NUCLEATED RED BLOOD CELLS (BEAKER) (test 0 /100 WBC 0-0 rkzh=267) NEUTROPHILS RELATIVE PERCENT (BEAKER) (test 65 % hkjy=919) LYMPHOCYTES RELATIVE PERCENT (BEAKER) (test 12 % mjhf=993) MONOCYTES RELATIVE PERCENT (BEAKER) (test 12 % mfvh=752) EOSINOPHILS RELATIVE PERCENT (BEAKER) (test 9 % jfbf=723) BASOPHILS RELATIVE PERCENT (BEAKER) (test 0 % wlyr=490) NEUTROPHILS ABSOLUTE COUNT (BEAKER) (test 7.45 K/ L 1.78-5.38 cfqr=119) LYMPHOCYTES ABSOLUTE COUNT (BEAKER) (test 1.38 K/ L 1.32-3.57 bhmi=066) MONOCYTES ABSOLUTE COUNT (BEAKER) (test 1.41 K/ L 0.30-0.82 jodl=669) EOSINOPHILS ABSOLUTE COUNT (BEAKER) (test 0.99 K/ L 0.04-0.54 egvr=966) BASOPHILS ABSOLUTE COUNT (BEAKER) (test 0.05 K/ L 0.01-0.08 ahvm=627) IMMATURE GRANULOCYTES-RELATIVE PERCENT (BEAKER) 1 % 0-1 (test teze=6958) POCT-GLUCOSE [id number] 20:40:00 Test Item Value Reference Range Comments POC-GLUCOSE METER (BEAKER) 311 mg/dL 70-110 TESTED AT [address] (test dhbr=1157) [place] [address] RAPID DRUG SCREEN, [id number] 19:24:00 Test Item Value Reference Range Comments BARBITURATE URINE (BEAKER) (test jbzw=313) Negative Negative BENZODIAZEPINE SCREEN URINE (BEAKER) (test Negative Negative cwck=978) COCAINE (METAB.) SCREEN (BEAKER) (test ctyw=8070) Negative Negative METHADONE SCREEN (BEAKER) (test dkwg=0504) Negative Negative OPIATE SCREEN URINE (BEAKER) (test kuit=076) Negative Negative CANNABINOID SCREEN URINE (BEAKER) (test qxwt=257) Negative Negative AMPH/METHAMPH SCREEN (BEAKER) (test gnsw=9458) Negative Negative PHENCYCLIDINE SCREEN URINE (BEAKER) (test uzdx=651) Negative Negative OXYCODONE SCREEN URINE (BEAKER) (test bxzl=9785) Negative Negative DRUG CUTOFF CONC.Cocaine 300 ng/mL Cannabinoid 50 ng/mL Benzodiazepine 200 ng/mLBarbiturate 200 ng/ mLPhencyclidine 25 ng/mLOpiate 300 ng/mLMethadone 300 ng/mLAmphetamine/ 1000 ng/mL MethamphetamineOxycodone 300 ng/mLThis assay provides an unconfirmed qualitative test result for the clinical management of patients in emergency situations. Chain of custody not maintained. Some ulsz-pae-btjkxav medications, as well as adulterants, may cause inaccurate results. Clinical correlation should be applied. A more comprehensive drug screen or confirmation of a detected drug may be performed upon request.POCT-GLUCOSE [id number] 17:47:00 Test Item Value Reference Range Comments POC-GLUCOSE METER (BEAKER) 241 mg/dL 70-110 TESTED AT [address] (test anqt=4417) [place] [id number] CBC W/PLT COUNT & AUTO [id number] 12:01:00 Test Item Value Reference Range Comments WHITE BLOOD CELL COUNT (BEAKER) (test tznu=097) 10.3 K/ L 3.5-10.5 RED BLOOD CELL COUNT (BEAKER) (test angb=344) 3.04 M/ L 4.63-6.08 HEMOGLOBIN (BEAKER) (test txhp=508) 8.7 GM/DL 13.7-17.5 HEMATOCRIT (BEAKER) (test iwku=804) 27.2 % 40.1-51.0 MEAN CORPUSCULAR VOLUME (BEAKER) (test qkzx=647) 89.5 fL 79.0-92.2 MEAN CORPUSCULAR HEMOGLOBIN (BEAKER) (test 28.6 pg 25.7-32.2 mcic=712) MEAN CORPUSCULAR HEMOGLOBIN CONC (BEAKER) (test 32.0 GM/DL 32.3-36.5 cgrj=113) RED CELL DISTRIBUTION WIDTH (BEAKER) (test 13.6 % 11.6-14.4 cbjs=340) PLATELET COUNT (BEAKER) (test sght=344) 315 K/CU MM 150-450 MEAN PLATELET VOLUME (BEAKER) (test bvju=708) 9.2 fL 9.4-12.4 NUCLEATED RED BLOOD CELLS (BEAKER) (test 0 /100 WBC 0-0 jkgc=709) (CELLAVISION MANUAL DIFF)2017-11-25 12:01:00 Test Item Value Reference Range Comments NEUTROPHILS - REL (CELLAVISION)(BEAKER) (test 75 % slgn=3523) LYMPHOCYTES - REL (CELLAVISION)(BEAKER) (test 9 % svcy=4850) MONOCYTES - REL (CELLAVISION)(BEAKER) (test 9 % zhxo=2754) EOSINOPHILS - REL (CELLAVISION)(BEAKER) (test 6 % klcw=9524) BASOPHILS - REL (CELLAVISION)(BEAKER) (test 1 % zcgd=1992) NEUTROPHILS - ABS (CELLAVISION)(BEAKER) (test 7.73 K/ul 1.78-5.38 jqqd=3555) LYMPHOCYTES - ABS (CELLAVISION)(BEAKER) (test 0.93 K/ul 1.32-3.57 ctvi=4123) MONOCYTES - ABS (CELLAVISION)(BEAKER) (test 0.93 K/uL 0.30-0.82 kkdi=4333) EOSINOPHILS - ABS (CELLAVISION)(BEAKER) (test 0.62 K/uL 0.04-0.54 gyow=7462) BASOPHILS - ABS (CELLAVISION)(BEAKER) (test 0.10 K/uL 0.01-0.08 dwjg=2751) TOTAL COUNTED (BEAKER) (test itun=3365) 100 RBC MORPHOLOGY (BEAKER) (test xose=428) Normal WBC MORPHOLOGY (BEAKER) (test nshf=230) Normal PLT MORPHOLOGY (BEAKER) (test ywwh=144) Normal ARTIFACT (CELLAVISION)(BEAKER) (test ggug=3318) Present PLATELET CONCENTRATION (CELLAVISION)(BEAKER) (test Adequate hmsz=3008) Received comment: User comments: Slide comments:POCT-GLUCOSE [id number] 11: 34:00 Test Item Value Reference Range Comments POC-GLUCOSE METER (BEAKER) 295 mg/dL 70-110 TESTED AT [address] (test feci=8073) [facility] [address] POCT-GLUCOSE [id number] 07:38:00 Test Item Value Reference Range Comments POC-GLUCOSE METER (BEAKER) 188 mg/dL 70-110 TESTED AT [address] (test xhwh=5522) [facility] [address] CALCIUM, [id number] 06:26:00 Test Item Value Reference Range Comments CALCIUM IONIZED (BEAKER) (test wcqh=033) 1.00 mmol/L 1.12-1.27 PH, BLOOD (BEAKER) (test keir=0554) 7.35 COMPREHENSIVE METABOLIC [id number] 06:13:00 Test Item Value Reference Range Comments TOTAL PROTEIN (BEAKER) 6.0 gm/dL 6.0-8.3 (test jtoh=338) ALBUMIN (BEAKER) (test 2.9 g/dL 3.5-5.0 dozp=1656) ALKALINE PHOSPHATASE 336 U/L 40-150 (BEAKER) (test wksa=125) BILIRUBIN TOTAL (BEAKER) 0.3 mg/dL 0.2-1.2 (test tqlr=173) SODIUM (BEAKER) (test 129 meq/L 136-145 oeku=596) POTASSIUM (BEAKER) (test 3.4 meq/L 3.5-5.1 mrqg=068) CHLORIDE (BEAKER) (test 101 meq/L 98-107 qtdp=017) CO2 (BEAKER) (test 19 meq/L 22-29 bfcr=995) BLOOD UREA NITROGEN 43 mg/dL 7-21 (BEAKER) (test yzkk=430) CREATININE (BEAKER) (test 2.84 mg/dL 0.57-1.25 kths=045) GLUCOSE RANDOM (BEAKER) 205 mg/dL 70-105 (test dake=356) CALCIUM (BEAKER) (test 8.1 mg/dL 8.4-10.2 xdsp=844) AST (SGOT) (BEAKER) (test 37 U/L 5-34 mmgf=061) ALT (SGPT) (BEAKER) (test 37 U/L 6-55 vmay=038) EGFR (BEAKER) (test 21 mL/min/1.73 sq m ESTIMATED GFR IS NOT dert=9530) ACCURATE CREATININE CLEARANCE IN PREDICTING GLOMERULAR FILTRATION RATE. ESTIMATED GFR IS NOT APPLICABLE FOR DIALYSIS PATIENTS. [id number] 06:12:00 Test Item Value Reference Range Comments PHOSPHORUS (BEAKER) (test usie=814) 3.6 mg/dL 2.3-4.7 [id number] 06:12:00 Test Item Value Reference Range Comments MAGNESIUM (BEAKER) (test uedz=947) 1.6 mg/dL 1.6-2.6 PROTHROMBIN TIME/[id number] 05:33:00 Test Item Value Reference Range Comments PROTIME (BEAKER) (test awxc=061) 14.0 seconds 11.7-14.7 INR (BEAKER) (test loew=396) 1.1 <=5.9 RECOMMENDED COUMADIN/WARFARIN INR THERAPY RANGESSTANDARD DOSE: 2.0 - 3.0 Includes: PROPHYLAXIS forvenous thrombosis, systemic embolization; TREATMENT for venous thrombosis and/or pulmonary embolus.HIGH RISK: Target INR is 2.5-3.5 for patients with mechanical heart valves.POCT-GLUCOSE [id number] 17:32:00 Test Item Value Reference Range Comments POC-GLUCOSE METER (BEAKER) 144 mg/dL 70-110 TESTED AT [address] (test otoa=7277) [facility] [address] URINE PROTEIN ELECTROPHORESIS, 24 [id number] 14:15:00 Test Item Value Reference Range Comments PROTEIN, 24HR URINE (BEAKER) 2992 mg/24hr 0-300 (test srnc=9439) VOLUME, TOTAL (BEAKER) (test 1700 ml xyvz=8423) ALBUMIN, 24HR URINE (BEAKER) 30.3 % (test urfd=6635) GLOBULIN, 24HR URINE 69.7 % (BEAKER) (test vlca=0834) UPEP, ID (BEAKER) (test Spillage of large amounts of gcrz=1776) globulin fractions may mask underlying monoclonal proteins; urine MATEO ordered and results pending. PROTEIN, URINE (BEAKER) 176 mg/dL 0-14 (test cgie=6089) [facility] PATHOLOGIST-2204 Mary Robledo MD (BEAKER) (test pnon=5412) (electronic signature) POCT-GLUCOSE [id number] 12:04:00 Test Item Value Reference Range Comments POC-GLUCOSE METER (BEAKER) 155 mg/dL 70-110 TESTED AT [address] (test tkwd=8855) [facility] [address] CBC W/PLT COUNT & AUTO [id number] 08:49:00 Test Item Value Reference Range Comments WHITE BLOOD CELL COUNT (BEAKER) (test vfkp=716) 10.9 K/ L 3.5-10.5 RED BLOOD CELL COUNT (BEAKER) (test jlyo=087) 2.96 M/ L 4.63-6.08 HEMOGLOBIN (BEAKER) (test typq=815) 8.6 GM/DL 13.7-17.5 HEMATOCRIT (BEAKER) (test pvfk=036) 26.2 % 40.1-51.0 MEAN CORPUSCULAR VOLUME (BEAKER) (test oaev=377) 88.5 fL 79.0-92.2 MEAN CORPUSCULAR HEMOGLOBIN (BEAKER) (test 29.1 pg 25.7-32.2 rbzz=477) MEAN CORPUSCULAR HEMOGLOBIN CONC (BEAKER) (test 32.8 GM/DL 32.3-36.5 ecef=161) RED CELL DISTRIBUTION WIDTH (BEAKER) (test 13.5 % 11.6-14.4 hjhz=139) PLATELET COUNT (BEAKER) (test nshg=355) 298 K/CU MM 150-450 MEAN PLATELET VOLUME (BEAKER) (test kuew=101) 9.2 fL 9.4-12.4 NUCLEATED RED BLOOD CELLS (BEAKER) (test 0 /100 WBC 0-0 rpel=348) (CELLAVISION MANUAL DIFF)[id number] 08:49:00 Test Item Value Reference Range Comments NEUTROPHILS - REL (CELLAVISION)(BEAKER) (test 78 % jbht=3887) LYMPHOCYTES - REL (CELLAVISION)(BEAKER) (test 7 % xceh=8016) MONOCYTES - REL (CELLAVISION)(BEAKER) (test 11 % tthe=5557) EOSINOPHILS - REL (CELLAVISION)(BEAKER) (test 4 % xsct=1636) NEUTROPHILS - ABS (CELLAVISION)(BEAKER) (test 8.50 K/ul 1.78-5.38 gsvi=3826) LYMPHOCYTES - ABS (CELLAVISION)(BEAKER) (test 0.76 K/ul 1.32-3.57 xkst=4087) MONOCYTES - ABS (CELLAVISION)(BEAKER) (test 1.20 K/uL 0.30-0.82 sgdi=2277) EOSINOPHILS - ABS (CELLAVISION)(BEAKER) (test 0.44 K/uL 0.04-0.54 euhw=3156) TOTAL COUNTED (BEAKER) (test ryxh=0839) 100 RBC MORPHOLOGY (BEAKER) (test qrig=436) Normal WBC MORPHOLOGY (BEAKER) (test qnvc=048) Normal PLT MORPHOLOGY (BEAKER) (test qoxv=085) Normal ARTIFACT (CELLAVISION)(BEAKER) (test oeag=7086) Present PLATELET CONCENTRATION (CELLAVISION)(BEAKER) (test Adequate uize=2224) Received comment: User comments: Slide comments:POCT-GLUCOSE [id number] 08: 16:00 Test Item Value Reference Range Comments POC-GLUCOSE METER (BEAKER) 166 mg/dL 70-110 TESTED AT [facility] [address] [facility] (test ldcm=1759) [facility] [address] CALCIUM, [id number] 06:10:00 Test Item Value Reference Range Comments CALCIUM IONIZED (BEAKER) (test xwbv=194) 0.98 mmol/L 1.12-1.27 PH, BLOOD (BEAKER) (test ovhh=7221) 7.40 BASIC METABOLIC [id number] 05:06:00 Test Item Value Reference Range Comments SODIUM (BEAKER) (test 131 meq/L 136-145 cazw=450) POTASSIUM (BEAKER) (test 3.6 meq/L 3.5-5.1 snaf=584) CHLORIDE (BEAKER) (test 100 meq/L 98-107 exng=899) CO2 (BEAKER) (test 21 meq/L 22-29 jerx=847) BLOOD UREA NITROGEN 39 mg/dL 7-21 (BEAKER) (test ytuo=158) CREATININE (BEAKER) (test 2.74 mg/dL 0.57-1.25 psdt=220) GLUCOSE RANDOM (BEAKER) 158 mg/dL 70-105 (test pzma=478) CALCIUM (BEAKER) (test 8.1 mg/dL 8.4-10.2 tqhw=931) EGFR (BEAKER) (test 22 mL/min/1.73 sq m ESTIMATED GFR IS NOT pkpe=8654) ACCURATE CREATININE CLEARANCE IN PREDICTING GLOMERULAR FILTRATION RATE. ESTIMATED GFR IS NOT APPLICABLE FOR DIALYSIS PATIENTS. [id number] 05:03:00 Test Item Value Reference Range Comments PHOSPHORUS (BEAKER) (test bbrg=973) 3.4 mg/dL 2.3-4.7 [id number] 05:03:00 Test Item Value Reference Range Comments MAGNESIUM (BEAKER) (test vzmw=520) 1.6 mg/dL 1.6-2.6 POCT-GLUCOSE [id number] 21:25:00 Test Item Value Reference Range Comments POC-GLUCOSE METER (BEAKER) 252 mg/dL 70-110 TESTED AT [address] (test jxgi=9093) [facility] [address] POCT-GLUCOSE [id number] 17:44:00 Test Item Value Reference Range Comments POC-GLUCOSE METER (BEAKER) 127 mg/dL 70-110 TESTED AT [address] (test uuze=2046) [facility] [address] POCT-GLUCOSE [id number] 11:31:00 Test Item Value Reference Range Comments POC-GLUCOSE METER (BEAKER) 221 mg/dL 70-110 TESTED AT [facility] [address] [facility] (test dywl=1963) [facility] [address] BLOOD [id number] 11:00:00 Test Item Value Reference Range Comments CULTURE (BEAKER) (test oqjq=3258) No growth in 5 days POCT-GLUCOSE [id number] 08:08:00 Test Item Value Reference Range Comments POC-GLUCOSE METER (BEAKER) 118 mg/dL 70-110 TESTED AT [address] (test yvkv=7279) [facility] [address] COMPREHENSIVE METABOLIC [id number] 06:57:00 Test Item Value Reference Range Comments TOTAL PROTEIN (BEAKER) 5.9 gm/dL 6.0-8.3 (test fhpx=519) ALBUMIN (BEAKER) (test 2.9 g/dL 3.5-5.0 ynoz=0953) ALKALINE PHOSPHATASE 276 U/L 40-150 (BEAKER) (test vyrl=852) BILIRUBIN TOTAL (BEAKER) 0.5 mg/dL 0.2-1.2 (test amyz=753) SODIUM (BEAKER) (test 130 meq/L 136-145 gudu=270) POTASSIUM (BEAKER) (test 3.9 meq/L 3.5-5.1 znul=581) CHLORIDE (BEAKER) (test 99 meq/L 98-107 cewq=323) CO2 (BEAKER) (test 20 meq/L 22-29 ljqm=521) BLOOD UREA NITROGEN 35 mg/dL 7-21 (BEAKER) (test kpkp=284) CREATININE (BEAKER) (test 2.39 mg/dL 0.57-1.25 pxcy=394) GLUCOSE RANDOM (BEAKER) 116 mg/dL 70-105 (test jsml=327) CALCIUM (BEAKER) (test 8.0 mg/dL 8.4-10.2 vejy=183) AST (SGOT) (BEAKER) (test 36 U/L 5-34 suvo=887) ALT (SGPT) (BEAKER) (test 28 U/L 6-55 xgcf=992) EGFR (BEAKER) (test 26 mL/min/1.73 sq m ESTIMATED GFR IS NOT wcya=1197) ACCURATE CREATININE CLEARANCE IN PREDICTING GLOMERULAR FILTRATION RATE. ESTIMATED GFR IS NOT APPLICABLE FOR DIALYSIS PATIENTS. [id number] 05:44:00 Test Item Value Reference Range Comments PHOSPHORUS (BEAKER) (test jnfl=250) 3.2 mg/dL 2.3-4.7 [id number] 05:44:00 Test Item Value Reference Range Comments MAGNESIUM (BEAKER) (test aqos=648) 1.7 mg/dL 1.6-2.6 PROTHROMBIN [id number] 04:53:00 Test Item Value Reference Range Comments PROTIME (BEAKER) (test qlyo=067) 15.5 seconds 11.7-14.7 INR (BEAKER) (test kian=790) 1.2 <=5.9 RECOMMENDED COUMADIN/WARFARIN INR THERAPY RANGESSTANDARD DOSE: 2.0 - 3.0 Includes: PROPHYLAXIS forvenous thrombosis, systemic embolization; TREATMENT for venous thrombosis and/or pulmonary embolus.HIGH RISK: Target INR is 2.5-3.5 for patients with mechanical heart valves.CBC W/PLT COUNT & AUTO [id number] 04:43:00 Test Item Value Reference Range Comments WHITE BLOOD CELL COUNT (BEAKER) (test kwgq=717) 11.2 K/ L 3.5-10.5 RED BLOOD CELL COUNT (BEAKER) (test sluz=867) 3.22 M/ L 4.63-6.08 HEMOGLOBIN (BEAKER) (test jmpl=080) 9.2 GM/DL 13.7-17.5 HEMATOCRIT (BEAKER) (test jfeg=077) 28.9 % 40.1-51.0 MEAN CORPUSCULAR VOLUME (BEAKER) (test hcuq=397) 89.8 fL 79.0-92.2 MEAN CORPUSCULAR HEMOGLOBIN (BEAKER) (test 28.6 pg 25.7-32.2 bkap=616) MEAN CORPUSCULAR HEMOGLOBIN CONC (BEAKER) (test 31.8 GM/DL 32.3-36.5 dxko=273) RED CELL DISTRIBUTION WIDTH (BEAKER) (test 13.3 % 11.6-14.4 adnc=359) PLATELET COUNT (BEAKER) (test lpvw=709) 327 K/CU MM 150-450 MEAN PLATELET VOLUME (BEAKER) (test ijnj=891) 9.4 fL 9.4-12.4 NUCLEATED RED BLOOD CELLS (BEAKER) (test 0 /100 WBC 0-0 yeod=392) NEUTROPHILS RELATIVE PERCENT (BEAKER) (test 68 % xjky=948) LYMPHOCYTES RELATIVE PERCENT (BEAKER) (test 11 % zsne=424) MONOCYTES RELATIVE PERCENT (BEAKER) (test 13 % nqok=064) EOSINOPHILS RELATIVE PERCENT (BEAKER) (test 7 % mrkc=831) BASOPHILS RELATIVE PERCENT (BEAKER) (test 0 % btyy=534) NEUTROPHILS ABSOLUTE COUNT (BEAKER) (test 7.59 K/ L 1.78-5.38 boxd=127) LYMPHOCYTES ABSOLUTE COUNT (BEAKER) (test 1.23 K/ L 1.32-3.57 lmdf=589) MONOCYTES ABSOLUTE COUNT (BEAKER) (test 1.49 K/ L 0.30-0.82 tgls=991) EOSINOPHILS ABSOLUTE COUNT (BEAKER) (test 0.78 K/ L 0.04-0.54 rtri=705) BASOPHILS ABSOLUTE COUNT (BEAKER) (test 0.04 K/ L 0.01-0.08 kmmf=529) IMMATURE GRANULOCYTES-RELATIVE PERCENT (BEAKER) 0 % 0-1 (test ioyw=8425) CALCIUM, [id number] 04:27:00 Test Item Value Reference Range Comments CALCIUM IONIZED (BEAKER) (test fwtd=051) 0.97 mmol/L 1.12-1.27 PH, BLOOD (BEAKER) (test wowp=7280) 7.42 PROTEIN, 24 HOUR [id number] 02:50:00 Test Item Value Reference Range Comments PROTEIN, 24HR URINE (BEAKER) (test ouaa=3423) 2992 mg/24hr 0-300 VOLUME, TOTAL (BEAKER) (test mbej=0858) 1700 ml PROTEIN, URINE (BEAKER) (test ceer=7624) 176 mg/dL 0-14 POCT-GLUCOSE [id number] 21:39:00 Test Item Value Reference Range Comments POC-GLUCOSE METER (BEAKER) 194 mg/dL 70-110 TESTED AT [address] (test tpba=1356) [facility] [address] POCT-GLUCOSE [id number] 17:08:00 Test Item Value Reference Range Comments POC-GLUCOSE METER (BEAKER) 183 mg/dL 70-110 TESTED AT [address] (test nceo=0458) [facility] [address] POCT-GLUCOSE [id number] 12:10:00 Test Item Value Reference Range Comments POC-GLUCOSE METER (BEAKER) 157 mg/dL 70-110 TESTED AT [facility] [address] [facility] (test xosg=9317) [facility] [address] POCT-GLUCOSE [id number] 07:53:00 Test Item Value Reference Range Comments POC-GLUCOSE METER (BEAKER) 132 mg/dL 70-110 TESTED AT [place] [id number] [facility] (test gsug=3389) [facility] [address] CALCIUM, [id number] 07:44:00 Test Item Value Reference Range Comments CALCIUM IONIZED (BEAKER) (test waur=262) 0.94 mmol/L 1.12-1.27 PH, BLOOD (BEAKER) (test zcur=5170) 7.42 COMPREHENSIVE METABOLIC [id number] 07:05:00 Test Item Value Reference Range Comments TOTAL PROTEIN (BEAKER) 5.9 gm/dL 6.0-8.3 (test mpet=563) ALBUMIN (BEAKER) (test 2.9 g/dL 3.5-5.0 trfm=5581) ALKALINE PHOSPHATASE 216 U/L 40-150 (BEAKER) (test mdyb=587) BILIRUBIN TOTAL (BEAKER) 0.6 mg/dL 0.2-1.2 (test pguc=840) SODIUM (BEAKER) (test 132 meq/L 136-145 rryr=051) POTASSIUM (BEAKER) (test 3.6 meq/L 3.5-5.1 xbve=095) CHLORIDE (BEAKER) (test 97 meq/L 98-107 wgxa=349) CO2 (BEAKER) (test 24 meq/L 22-29 plwm=819) BLOOD UREA NITROGEN 36 mg/dL 7-21 (BEAKER) (test ewiz=232) CREATININE (BEAKER) (test 2.43 mg/dL 0.57-1.25 gwnn=899) GLUCOSE RANDOM (BEAKER) 113 mg/dL 70-105 (test haub=340) CALCIUM (BEAKER) (test 7.9 mg/dL 8.4-10.2 ihxv=822) AST (SGOT) (BEAKER) (test 29 U/L 5-34 xors=752) ALT (SGPT) (BEAKER) (test 25 U/L 6-55 ccnu=068) EGFR (BEAKER) (test 26 mL/min/1.73 sq m ESTIMATED GFR IS NOT bpnc=0262) ACCURATE CREATININE CLEARANCE IN PREDICTING GLOMERULAR FILTRATION RATE. ESTIMATED GFR IS NOT APPLICABLE FOR DIALYSIS PATIENTS. [id number] 07:04:00 Test Item Value Reference Range Comments PHOSPHORUS (BEAKER) (test iioi=083) 3.0 mg/dL 2.3-4.7 [id number] 07:04:00 Test Item Value Reference Range Comments MAGNESIUM (BEAKER) (test xxqs=695) 1.7 mg/dL 1.6-2.6 CBC W/PLT COUNT & AUTO [id number] 06:36:00 Test Item Value Reference Range Comments WHITE BLOOD CELL COUNT (BEAKER) (test jyuc=316) 12.1 K/ L 3.5-10.5 RED BLOOD CELL COUNT (BEAKER) (test cswn=113) 3.30 M/ L 4.63-6.08 HEMOGLOBIN (BEAKER) (test vgxx=710) 9.4 GM/DL 13.7-17.5 HEMATOCRIT (BEAKER) (test cyci=878) 29.3 % 40.1-51.0 MEAN CORPUSCULAR VOLUME (BEAKER) (test qwck=140) 88.8 fL 79.0-92.2 MEAN CORPUSCULAR HEMOGLOBIN (BEAKER) (test 28.5 pg 25.7-32.2 wlcr=927) MEAN CORPUSCULAR HEMOGLOBIN CONC (BEAKER) (test 32.1 GM/DL 32.3-36.5 mkfx=477) RED CELL DISTRIBUTION WIDTH (BEAKER) (test 13.7 % 11.6-14.4 rxah=456) PLATELET COUNT (BEAKER) (test rrbf=596) 310 K/CU MM 150-450 MEAN PLATELET VOLUME (BEAKER) (test vbie=062) 9.7 fL 9.4-12.4 NUCLEATED RED BLOOD CELLS (BEAKER) (test 0 /100 WBC 0-0 xfvm=491) NEUTROPHILS RELATIVE PERCENT (BEAKER) (test 69 % hqwp=298) LYMPHOCYTES RELATIVE PERCENT (BEAKER) (test 12 % otpw=316) MONOCYTES RELATIVE PERCENT (BEAKER) (test 12 % wimn=736) EOSINOPHILS RELATIVE PERCENT (BEAKER) (test 7 % donk=659) BASOPHILS RELATIVE PERCENT (BEAKER) (test 0 % ijoe=103) NEUTROPHILS ABSOLUTE COUNT (BEAKER) (test 8.28 K/ L 1.78-5.38 chvr=667) LYMPHOCYTES ABSOLUTE COUNT (BEAKER) (test 1.40 K/ L 1.32-3.57 srhg=578) MONOCYTES ABSOLUTE COUNT (BEAKER) (test 1.43 K/ L 0.30-0.82 fcua=931) EOSINOPHILS ABSOLUTE COUNT (BEAKER) (test 0.81 K/ L 0.04-0.54 requ=835) BASOPHILS ABSOLUTE COUNT (BEAKER) (test 0.04 K/ L 0.01-0.08 fhky=110) IMMATURE GRANULOCYTES-RELATIVE PERCENT (BEAKER) 1 % 0-1 (test elzk=1101) POCT-GLUCOSE [id number] 21:45:00 Test Item Value Reference Range Comments POC-GLUCOSE METER (BEAKER) 152 mg/dL 70-110 TESTED AT [facility] [address] [facility] (test ppal=3296) [facility] [address] URINALYSIS W/ REFLEX URINE [id number] 19:43:00 Test Item Value Reference Range Comments COLOR (BEAKER) (test lmxd=646) Light Yellow CLARITY (BEAKER) (test ophl=523) Clear SPECIFIC GRAVITY UA (BEAKER) (test svnp=447) 1.005 1.001-1.035 PH UA (BEAKER) (test gizy=012) 8.5 5.0-8.0 PROTEIN UA (BEAKER) (test vygu=611) 200 mg/dL Negative GLUCOSE UA (BEAKER) (test ltne=499) 500 mg/dL Negative KETONES UA (BEAKER) (test nvne=029) Negative Negative BILIRUBIN UA (BEAKER) (test cvpr=051) Negative Negative BLOOD UA (BEAKER) (test puec=983) Trace Negative NITRITE UA (BEAKER) (test dscl=507) Negative Negative LEUKOCYTE ESTERASE UA (BEAKER) (test kcgd=823) Negative Negative UROBILINOGEN UA (BEAKER) (test kuie=290) 0.2 mg/dL 0.2-1.0 RBC UA (BEAKER) (test hnyw=403) 0 /HPF WBC UA (BEAKER) (test robd=838) 1 /HPF BACTERIA (BEAKER) (test hpmr=056) Rare SQUAMOUS EPITHELIAL (BEAKER) (test jmfa=225) < /HPF SOURCE(BEAKER) (test zafe=6757) POCT-GLUCOSE [id number] 16:59:00 Test Item Value Reference Range Comments POC-GLUCOSE METER (BEAKER) 184 mg/dL 70-110 TESTED AT [facility] [address] (test xitm=4314) [facility] [address] URINE PROTEIN ELECTROPHORESIS, [id number] 16:32:00 Test Item Value Reference Range Comments PROTEIN, URINE (BEAKER) (test 101 mg/dL 0-14 eniw=2227) ALBUMIN URINE ELP (BEAKER) 45.1 % (test amal=1170) GAMMA GLOBULIN URINE (BEAKER) 54.9 % (test nkme=1925) UPEP, ID-438 (BEAKER) (test No monoclonal bands detected. qcvz=1598) [id number] ([facility] Mary Robledo MD (test aidn=4394) (electronic signature) PROTEIN ELECTROPHORESIS, [id number] 16:02:00 Test Item Value Reference Range Comments ALBUMIN FRACTION (BEAKER) 2.5 g/dL 3.5-5.5 (test jgbs=952) ALPHA 1 FRACTION (BEAKER) 0.3 g/dL 0.2-0.4 (test uajv=466) ALPHA 2 FRACTION (BEAKER) 0.7 g/dL 0.5-0.9 (test hxal=728) BETA FRACTION (BEAKER) (test 0.8 g/dL 0.6-1.1 eztr=236) GAMMA GLOBULIN FRACTION 1.1 g/dL 0.7-1.7 (BEAKER) (test faza=243) INTERPRETATION-119 (BEAKER) Decreased albumin with (test mfcu=2960) concurrent relative increases in all globulin fractions. No monoclonal bands detected. [id number] (BEAKER) Mary Robledo MD (test uqvo=8727) (electronic signature) PROTEIN TOTAL SERUM, SPEP 5.3 gm/dL 6.0-8.3 (BEAKER) (test fhhg=9870) POCT-GLUCOSE [id number] 11:58:00 Test Item Value Reference Range Comments POC-GLUCOSE METER (BEAKER) 197 mg/dL 70-110 TESTED AT [facility] [address] [facility] (test fstt=6815) [facility] [address] POCT-GLUCOSE [id number] 08:42:00 Test Item Value Reference Range Comments POC-GLUCOSE METER (BEAKER) 119 mg/dL 70-110 TESTED AT [facility] [address] [facility] (test ntiu=8244) [facility] [address] HEMOGLOBIN [id number] 08:19:00 Test Item Value Reference Range Comments HEMOGLOBIN A1C (BEAKER) (test wguo=036) 5.9 % 4.3-6.1 COMPREHENSIVE METABOLIC [id number] 05:26:00 Test Item Value Reference Range Comments TOTAL PROTEIN (BEAKER) 5.8 gm/dL 6.0-8.3 (test jvgt=488) ALBUMIN (BEAKER) (test 2.9 g/dL 3.5-5.0 ahbr=8277) ALKALINE PHOSPHATASE 132 U/L 40-150 (BEAKER) (test wbux=962) BILIRUBIN TOTAL (BEAKER) 0.5 mg/dL 0.2-1.2 (test yxno=460) SODIUM (BEAKER) (test 133 meq/L 136-145 edjb=885) POTASSIUM (BEAKER) (test 3.5 meq/L 3.5-5.1 gbgl=426) CHLORIDE (BEAKER) (test 97 meq/L 98-107 zroe=548) CO2 (BEAKER) (test 27 meq/L 22-29 qszk=785) BLOOD UREA NITROGEN 32 mg/dL 7-21 (BEAKER) (test yosw=489) CREATININE (BEAKER) (test 2.26 mg/dL 0.57-1.25 uqtf=024) GLUCOSE RANDOM (BEAKER) 103 mg/dL 70-105 (test xuxu=133) CALCIUM (BEAKER) (test 7.9 mg/dL 8.4-10.2 cajc=665) AST (SGOT) (BEAKER) (test 24 U/L 5-34 nqsn=686) ALT (SGPT) (BEAKER) (test 18 U/L 6-55 hvko=703) EGFR (BEAKER) (test 28 mL/min/1.73 sq m ESTIMATED GFR IS NOT mlry=4036) ACCURATE CREATININE CLEARANCE IN PREDICTING GLOMERULAR FILTRATION RATE. ESTIMATED GFR IS NOT APPLICABLE FOR DIALYSIS PATIENTS. [id number] 04:54:00 Test Item Value Reference Range Comments PHOSPHORUS (BEAKER) (test usak=294) 2.8 mg/dL 2.3-4.7 [id number] 04:54:00 Test Item Value Reference Range Comments MAGNESIUM (BEAKER) (test bsky=517) 1.6 mg/dL 1.6-2.6 CBC W/PLT COUNT & AUTO [id number] 04:30:00 Test Item Value Reference Range Comments WHITE BLOOD CELL COUNT (BEAKER) (test lzmi=301) 13.5 K/ L 3.5-10.5 RED BLOOD CELL COUNT (BEAKER) (test mpsd=378) 3.33 M/ L 4.63-6.08 HEMOGLOBIN (BEAKER) (test swwd=161) 9.6 GM/DL 13.7-17.5 HEMATOCRIT (BEAKER) (test izem=054) 29.5 % 40.1-51.0 MEAN CORPUSCULAR VOLUME (BEAKER) (test tcmp=752) 88.6 fL 79.0-92.2 MEAN CORPUSCULAR HEMOGLOBIN (BEAKER) (test 28.8 pg 25.7-32.2 dzyd=346) MEAN CORPUSCULAR HEMOGLOBIN CONC (BEAKER) (test 32.5 GM/DL 32.3-36.5 szrt=782) RED CELL DISTRIBUTION WIDTH (BEAKER) (test 14.0 % 11.6-14.4 fanp=858) PLATELET COUNT (BEAKER) (test vqjl=890) 277 K/CU MM 150-450 MEAN PLATELET VOLUME (BEAKER) (test tzjx=631) 9.2 fL 9.4-12.4 NUCLEATED RED BLOOD CELLS (BEAKER) (test 0 /100 WBC 0-0 dynp=468) NEUTROPHILS RELATIVE PERCENT (BEAKER) (test 74 % klcw=910) LYMPHOCYTES RELATIVE PERCENT (BEAKER) (test 9 % zrlg=617) MONOCYTES RELATIVE PERCENT (BEAKER) (test 12 % bran=529) EOSINOPHILS RELATIVE PERCENT (BEAKER) (test 5 % ayta=051) BASOPHILS RELATIVE PERCENT (BEAKER) (test 0 % pyfw=565) NEUTROPHILS ABSOLUTE COUNT (BEAKER) (test 9.96 K/ L 1.78-5.38 xcqu=071) LYMPHOCYTES ABSOLUTE COUNT (BEAKER) (test 1.25 K/ L 1.32-3.57 cnea=328) MONOCYTES ABSOLUTE COUNT (BEAKER) (test 1.58 K/ L 0.30-0.82 aopl=960) EOSINOPHILS ABSOLUTE COUNT (BEAKER) (test 0.63 K/ L 0.04-0.54 rgot=651) BASOPHILS ABSOLUTE COUNT (BEAKER) (test 0.05 K/ L 0.01-0.08 yfxr=997) IMMATURE GRANULOCYTES-RELATIVE PERCENT (BEAKER) 1 % 0-1 (test lhpt=1514) CALCIUM, [id number] 04:27:00 Test Item Value Reference Range Comments CALCIUM IONIZED (BEAKER) (test bxhx=804) 0.94 mmol/L 1.12-1.27 PH, BLOOD (BEAKER) (test samh=6361) 7.41 POCT-GLUCOSE [id number] 21:41:00 Test Item Value Reference Range Comments POC-GLUCOSE METER (BEAKER) 225 mg/dL 70-110 TESTED AT [facility] [address] [facility] (test ejuz=3409) [facility] [address] (CELLAVISION MANUAL DIFF)[id number] 16:57:00 Test Item Value Reference Range Comments NEUTROPHILS - REL (CELLAVISION)(BEAKER) (test 83 % pzxp=8081) LYMPHOCYTES - REL (CELLAVISION)(BEAKER) (test 7 % yyfr=1967) MONOCYTES - REL (CELLAVISION)(BEAKER) (test 8 % hjrg=5444) EOSINOPHILS - REL (CELLAVISION)(BEAKER) (test 2 % lhqa=7060) NEUTROPHILS - ABS (CELLAVISION)(BEAKER) (test 8.38 K/ul 1.78-5.38 wssp=8602) LYMPHOCYTES - ABS (CELLAVISION)(BEAKER) (test 0.71 K/ul 1.32-3.57 trih=5340) MONOCYTES - ABS (CELLAVISION)(BEAKER) (test 0.81 K/uL 0.30-0.82 uriw=0109) EOSINOPHILS - ABS (CELLAVISION)(BEAKER) (test 0.20 K/uL 0.04-0.54 gllv=6193) TOTAL COUNTED (BEAKER) (test pdim=2945) 100 MANUAL NRBC PER 100 CELLS (BEAKER) (test 1 /100 WBC 0-0 hbry=1417) SMUDGE CELLS (BEAKER) (test nyta=6037) Present GIANT PLATELETS (BEAKER) (test yvuf=735) Present HYPOCHROMIA (BEAKER) (test qydx=024) 1+ few ANISOCYTOSIS (BEAKER) (test vdmn=930) 1+ few POIKILOCYTES (BEAKER) (test qyui=880) 1+ few PLATELET CONCENTRATION (CELLAVISION)(BEAKER) Adequate (test tkst=1249) Received comment: User comments: Slide comments:POCT-GLUCOSE [id number] 16: 37:00 Test Item Value Reference Range Comments POC-GLUCOSE METER (BEAKER) 190 mg/dL 70-110 TESTED AT [facility] [address] [facility] (test wkzt=2906) [facility] [address] PET, CARDIAC PERFUSION MULTIPLE STUDIES, REST AND [id number] 14:59: 00Reason for exam:->chest painFINAL REPORT PROCEDURE: Rest/Stress MYOCARDIAL PERFUSION PET with regadenoson\\XA9\\ CPT CODE: 98719 INDICATION: Chest pain, risk factors for CAD HISTORY: Cardiac risk factors: Diabetes, hypertension, tobacco use. Other cardiovascular history : No reported CAD. Recent cardiac symptoms: Chest pain, dyspnea. Current cardiovascular-related medications: Metoprolol. PROTOCOL: Limited low-dose CT imaging was performed for attenuation correction. 40.0 mCi of Rb-82 chloride was injected iv at rest, and gated PET (positron emission tomography) images wereobtained. Subsequently, 40.1 mCi of Rb-82 chloride was injected iv at expected peak pharmacologic effect, and gated PET images were obtained. PRELIMINARY STRESS TEST DATA FROM NONINVASIVE CARDIOLOGY:Pharmacologic stress was by 10-second iv infusion of 0.4 mg of regadenoson. Radiotracer was zyjxblpw31 seconds after start of stress. Heart rate was 70 beats/min at rest and 85 beats/min (61% of MPHR)at tracer injection. BP was 90/58 mmHg at rest and 105/52 mmHg at tracer injection. Stress was stopped for predetermined endpoint. The patient experienced abdominal discomfort; treatment was not required. Preliminary ECG evaluation revealed normal sinus rhythm, nonspecific interventricular conduction delay at rest and no ischemic changes with stress. ( Final ECG interpretation and other stress and monitoring data are reported separately by Cardiology.) IMAGING FINDINGS: Study quality is good.Images obtained after stress injection show decreased tracer uptake in the apex. Resting images showmostly improved tracer uptake in the apex. LV volume appears normal. RV volume appears normal. Gatedimages obtained immediately after stress show normal LV wall motion. Gated images obtained at rest show normal LV wall motion. LVEF at rest is 58%. LVEF at stress is 64%. IMPRESSION: 1. Abnormal study. 2. Appropriate pharmacologic stress. 3. Abnormal myocardial perfusion. There is a mild severity, medium size, mildly reversible , perfusion defect in all the apical segments of the LV. 4. Normal resting LV function. No deterioration of function is noted with pharmacologic stress. 5. Extracardiactracer distribution is normal. 6. No previous [facility] study for comparison. NONINVASIVE RISK STRATIFICATION: The above findings are considered intermediate risk (1% to 3% annual mortality rate) based on the following criterion: - Mild/moderate resting left ventricular dysfunction (LVEF 35% to 49%)- Stress-induced moderate perfusion defect without LV dilation or increasedlung intake (thallium-201)([facility];59(9[facility]857-73.) Signed: Venancio [facility]enz [facility] Verified Date/Time: 11/20/2017 14:59:03 Reading Location: [address] Reading Room POCT-GLUCOSE [id number] 12:45:00 Test Item Value Reference Range Comments POC-GLUCOSE METER (Infopia) 138 mg/dL 70-110 TESTED AT [facility] [address] [place] [address] (test whzk=8025) [facility] [address] LACTIC ACID, ARTERIAL, WHOLE [id number] 10:51:00 Test Item Value Reference Range Comments LACTATE BLOOD ARTERIAL (2) (Infopia) (test 1.1 mmol/L 0.5-2.2 cnnk=3061) Effective 09/27/2015: Units/Reference Range ChangeNew: 0.5-2.2 mmol/L Previous: 5 -20 mg/dLANTI-NUCLEAR ANTIBODY (YOLA)2017-11-20 10:51:00 Test Item Value Reference Range Comments ANTI-NUCLEAR ANTIBODY (YOLA) (Infopia) (test Negative Negative swur=123) VITAMIN D, [id number] 06:31:00 Test Item Value Reference Range Comments VITAMIN D 25-OH (BEAKER) (test aqxi=3813) 14.3 ng/mL 6.6-49.9 Effective 03/05/2017: Reference Range ChangeNew: 6.6-49.9 ng/mL Previous: 13.0 -47.8 ng/mLRecommended Vitamin D Target Range: 30.0-40.0 ng/mLTSH/FREE T4 IF [id number] 06:31:00 Test Item Value Reference Range Comments THYROID STIMULATING HORMONE (BEAKER) (test 1.55 uIU/mL 0.35-4.94 cckj=635) POCT-GLUCOSE [id number] 06:22:00 Test Item Value Reference Range Comments POC-GLUCOSE METER (BEAKER) 132 mg/dL 70-110 TESTED AT [facility] [address] [facility] (test zhmq=4616) [facility] [address] HEPATITIS PANEL, [id number] 06:07:00 Test Item Value Reference Range Comments HEPATITIS A IGM ANTIBODY (BEAKER) (test Nonreactive Nonreactive kahd=024) HEPATITIS B CORE IGM ANTIBODY (BEAKER) (test Nonreactive Nonreactive lrim=066) HEPATITIS C ANTIBODY (BEAKER) (test iblt=357) Nonreactive Nonreactive HEPATITIS B SURFACE ANTIGEN (2) (BEAKER) (test Nonreactive Nonreactive zatz=5691) COMPLEMENT COMPONENT [id number] 05:52:00 Test Item Value Reference Range Comments C4 COMPLEMENT (BEAKER) (test mria=795) 23 mg/dL 15-57 COMPLEMENT COMPONENT [id number] 05:52:00 Test Item Value Reference Range Comments C3 COMPLEMENT (BEAKER) (test kyth=648) 82 mg/dL 82-193 PTH, [id number] 05:43:00 Test Item Value Reference Range Comments PARATHYROID HORMONE INTACT (BEAKER) (test 247.5 pg/mL 8.5-72.5 ixwu=467) URIC [id number] 05:39:00 Test Item Value Reference Range Comments URIC ACID (BEAKER) (test gakj=069) 3.9 mg/dL 2.6-7.2 [id number] 05:39:00 Test Item Value Reference Range Comments MAGNESIUM (BEAKER) (test fveg=025) 1.9 mg/dL 1.6-2.6 [id number] 05:39:00 Test Item Value Reference Range Comments PHOSPHORUS (BEAKER) (test czex=719) 2.8 mg/dL 2.3-4.7 COMPREHENSIVE METABOLIC [id number] 05:39:00 Test Item Value Reference Range Comments TOTAL PROTEIN (BEAKER) 5.6 gm/dL 6.0-8.3 (test pszx=956) ALBUMIN (BEAKER) (test 2.8 g/dL 3.5-5.0 kqvw=2770) ALKALINE PHOSPHATASE 112 U/L 40-150 (BEAKER) (test eisr=663) BILIRUBIN TOTAL (BEAKER) 0.5 mg/dL 0.2-1.2 (test iwhc=387) SODIUM (BEAKER) (test 137 meq/L 136-145 zzdz=690) POTASSIUM (BEAKER) (test 3.4 meq/L 3.5-5.1 kmub=937) CHLORIDE (BEAKER) (test 99 meq/L 98-107 xvrh=981) CO2 (BEAKER) (test 29 meq/L 22-29 opyp=925) BLOOD UREA NITROGEN 31 mg/dL 7-21 (BEAKER) (test kqig=523) CREATININE (BEAKER) (test 1.99 mg/dL 0.57-1.25 taci=651) GLUCOSE RANDOM (BEAKER) 111 mg/dL 70-105 (test gynx=762) CALCIUM (BEAKER) (test 8.3 mg/dL 8.4-10.2 jjib=002) AST (SGOT) (BEAKER) (test 22 U/L 5-34 fzms=787) ALT (SGPT) (BEAKER) (test 17 U/L 6-55 suzp=106) EGFR (BEAKER) (test 32 mL/min/1.73 sq m ESTIMATED GFR IS NOT vpjl=4131) ACCURATE CREATININE CLEARANCE IN PREDICTING GLOMERULAR FILTRATION RATE. ESTIMATED GFR IS NOT APPLICABLE FOR DIALYSIS PATIENTS. CREATINE KINASE (CK)2017-11-20 05:39:00 Test Item Value Reference Range Comments CREATINE KINASE TOTAL (BEAKER) (test rebb=929) 97 U/L 29-200 CBC W/PLT COUNT & AUTO [id number] 05:07:00 Test Item Value Reference Range Comments WHITE BLOOD CELL COUNT (BEAKER) (test unaz=103) 10.1 K/ L 3.5-10.5 RED BLOOD CELL COUNT (BEAKER) (test foge=925) 3.27 M/ L 4.63-6.08 HEMOGLOBIN (BEAKER) (test abco=231) 9.4 GM/DL 13.7-17.5 HEMATOCRIT (BEAKER) (test ovcc=734) 28.4 % 40.1-51.0 MEAN CORPUSCULAR VOLUME (BEAKER) (test zxln=884) 86.9 fL 79.0-92.2 MEAN CORPUSCULAR HEMOGLOBIN (BEAKER) (test 28.7 pg 25.7-32.2 smeg=605) MEAN CORPUSCULAR HEMOGLOBIN CONC (BEAKER) (test 33.1 GM/DL 32.3-36.5 ngtl=104) RED CELL DISTRIBUTION WIDTH (BEAKER) (test 14.4 % 11.6-14.4 xbyg=681) PLATELET COUNT (BEAKER) (test srbp=931) 286 K/CU MM 150-450 MEAN PLATELET VOLUME (BEAKER) (test ubqh=251) 9.6 fL 9.4-12.4 NUCLEATED RED BLOOD CELLS (BEAKER) (test 0 /100 WBC 0-0 fxgm=076) CALCIUM, [id number] 05:06:00 Test Item Value Reference Range Comments CALCIUM IONIZED (BEAKER) (test jcrp=072) 1.00 mmol/L 1.12-1.27 PH, BLOOD (BEAKER) (test kkhu=6586) 7.46 RHEUMATOID FACTOR [id number] 01:38:00 Test Item Value Reference Range Comments RHEUMATOID FACTOR TITER (BEAKER) (test bfej=7850) :8 RHEUMATOID FACTOR AB, REFLEX TO [id number] 01:38:00 Test Item Value Reference Range Comments RHEUMATOID FACTOR (BEAKER) (test lsni=543) Positive POCT-GLUCOSE [id number] 22:04:00 Test Item Value Reference Range Comments POC-GLUCOSE METER (BEAKER) 212 mg/dL 70-110 TESTED AT [facility] [address] [facility] (test bhct=8148) [facility] [address] POCT-GLUCOSE [id number] 18:12:00 Test Item Value Reference Range Comments POC-GLUCOSE METER (BEAKER) 155 mg/dL 70-110 TESTED AT [facility] [address] (test ctfm=0854) [facility] [address] HIV-1 ANTIGEN WITH HIV-1/2 [id number] 16:21:00 Test Item Value Reference Range Comments HIV-1 ANTIGEN WITH HIV 1\\T\\2 ANTIBODY (2) Nonreactive Nonreactive (BEAKER) (test qrnv=3154) TROPONIN [id number] 16:04:00 Test Item Value Reference Range Comments TROPONIN I (BEAKER) (test skjf=839) 0.06 ng/mL 0.00-0.03 Troponin I (TnI) levels must be interpreted [...] failure, acidosis, acute neurological disease, and persistent tachyarrhythmia.CREATININE, RANDOM [id number] 16:00 :00 Test Item Value Reference Range Comments CREATININE URINE (BEAKER) (test mxfc=251) < mg/dL Reference Range: No NormalsPROTHROMBIN TIME/[id number] 15:58:00 Test Item Value Reference Range Comments PROTIME (BEAKER) (test foau=114) 16.0 seconds 11.7-14.7 INR (BEAKER) (test paus=640) 1.3 <=5.9 RECOMMENDED COUMADIN/WARFARIN INR THERAPY RANGESSTANDARD DOSE: 2.0 - 3.0 Includes: PROPHYLAXIS forvenous thrombosis, systemic embolization; TREATMENT for venous thrombosis and/or pulmonary embolus.HIGH RISK: Target INR is 2.5-3.5 for patients with mechanical heart valves.PROTEIN, RANDOM [id number] 15:56: 00 Test Item Value Reference Range Comments PROTEIN, URINE (BEAKER) (test tabl=3527) 94 mg/dL 0-14 SODIUM, RANDOM [id number] 15:56:00 Test Item Value Reference Range Comments SODIUM URINE (BEAKER) (test vnbd=343) 91 meq/L Reference Range: No NormalsURINALYSIS W/ [id number] 15:53:00 Test Item Value Reference Range Comments COLOR (BEAKER) (test nnuc=494) Light Yellow CLARITY (BEAKER) (test hqwe=811) Clear SPECIFIC GRAVITY UA (BEAKER) (test jvzz=528) 1.003 1.001-1.035 PH UA (BEAKER) (test svlz=006) 8.0 5.0-8.0 PROTEIN UA (BEAKER) (test cssl=440) 100 mg/dL Negative GLUCOSE UA (BEAKER) (test pazn=343) 30 mg/dL Negative KETONES UA (BEAKER) (test scac=700) Negative Negative BILIRUBIN UA (BEAKER) (test elyl=657) Negative Negative BLOOD UA (BEAKER) (test mqel=543) Small Negative NITRITE UA (BEAKER) (test unyz=548) Negative Negative LEUKOCYTE ESTERASE UA (BEAKER) (test ncnx=371) Negative Negative UROBILINOGEN UA (BEAKER) (test qynr=060) 0.2 mg/dL 0.2-1.0 RBC UA (BEAKER) (test rksj=845) 1 /HPF WBC UA (BEAKER) (test likj=408) 4 /HPF BACTERIA (BEAKER) (test ubze=751) Rare MUCUS (BEAKER) (test vzmm=5264) Rare SQUAMOUS EPITHELIAL (BEAKER) (test sezd=621) < /HPF SOURCE(BEAKER) (test hfzm=7899) Urine, Jernigan BASIC METABOLIC [id number] 15:52:00 Test Item Value Reference Range Comments SODIUM (BEAKER) (test 137 meq/L 136-145 jxes=816) POTASSIUM (BEAKER) (test 3.3 meq/L 3.5-5.1 xndw=074) CHLORIDE (BEAKER) (test 100 meq/L 98-107 mgfv=553) CO2 (BEAKER) (test 26 meq/L 22-29 qnbp=057) BLOOD UREA NITROGEN 23 mg/dL 7-21 (BEAKER) (test lcao=422) CREATININE (BEAKER) (test 1.45 mg/dL 0.57-1.25 vsab=644) GLUCOSE RANDOM (BEAKER) 120 mg/dL 70-105 (test qvrb=063) CALCIUM (BEAKER) (test 8.1 mg/dL 8.4-10.2 ahgo=342) EGFR (BEAKER) (test 47 mL/min/1.73 sq m ESTIMATED GFR IS NOT eeec=1134) ACCURATE CREATININE CLEARANCE IN PREDICTING GLOMERULAR FILTRATION RATE. ESTIMATED GFR IS NOT APPLICABLE FOR DIALYSIS PATIENTS. POCT-GLUCOSE [id number] 12:09:00 Test Item Value Reference Range Comments POC-GLUCOSE METER (BEAKER) 87 mg/dL 70-110 TESTED AT [address] (test ceus=3859) [place] [id number] POCT-GLUCOSE [id number] 11:21:00 Test Item Value Reference Range Comments POC-GLUCOSE METER (BEAKER) 90 mg/dL 70-110 TESTED AT [address] (test coak=2061) [place] [id number] POCT-GLUCOSE [id number] 11:12:00 Test Item Value Reference Range Comments POC-GLUCOSE METER (BEAKER) 111 mg/dL 70-110 TESTED AT [address] (test anzx=2418) [place] [address] HEMOGLOBIN [id number] 09:59:00 Test Item Value Reference Range Comments HEMOGLOBIN A1C (BEAKER) (test nafq=615) 6.1 % 4.3-6.1 CREATINE KINASE (CK), TOTAL AND [id number] 08:02:00 Test Item Value Reference Range Comments CREATINE KINASE TOTAL (BEAKER) (test wbkb=200) 141 U/L 29-200 CREATINE KINASE-MB (BEAKER) (test kwup=436) 7.9 ng/mL 0.0-6.6 CREATINE KINASE-MB INDEX (BEAKER) (test zunm=283) 5.6 % CK-MB Reference Range:<6.7 Normal6.7-10.0 Borderline>10.0 AbnormalTROPONIN [id number] 08:02:00 Test Item Value Reference Range Comments TROPONIN I (BEAKER) (test wuqf=514) 0.05 ng/mL 0.00-0.03 Troponin I (TnI) levels must be interpreted [...] failure, acidosis, acute neurological disease, and persistent tachyarrhythmia.[id number] 08:01:00 Test Item Value Reference Range Comments POTASSIUM (BEAKER) (test gedu=433) 4.6 meq/L 3.5-5.1 CALCIUM, [id number] 07:49:00 Test Item Value Reference Range Comments CALCIUM IONIZED (BEAKER) (test vlqn=898) 0.99 mmol/L 1.12-1.27 PH, BLOOD (BEAKER) (test onpd=2071) 7.45 LACTIC ACID, VENOUS, WHOLE [id number] 06:58:00 Test Item Value Reference Range Comments LACTATE BLOOD VENOUS (2) 3.8 mmol/L 0.5-2.2 Specimen slightly hemolyzed (BEAKER) (test lsia=3864) Effective 09/27/2015: Units/Reference Range ChangeNew: 0.5-2.2 mmol/L Previous: 5 -20 mg/dLCOMPREHENSIVE METABOLIC [id number] 04:38:00 Test Item Value Reference Range Comments TOTAL PROTEIN (BEAKER) 5.7 gm/dL 6.0-8.3 (test srsd=310) ALBUMIN (BEAKER) (test 2.9 g/dL 3.5-5.0 osuc=9181) ALKALINE PHOSPHATASE 89 U/L 40-150 (BEAKER) (test dkyz=012) BILIRUBIN TOTAL (BEAKER) 0.4 mg/dL 0.2-1.2 (test uprt=778) SODIUM (BEAKER) (test 135 meq/L 136-145 ozml=422) POTASSIUM (BEAKER) (test 4.6 meq/L 3.5-5.1 tjic=992) CHLORIDE (BEAKER) (test 98 meq/L 98-107 dmjx=619) CO2 (BEAKER) (test 20 meq/L 22-29 fvbv=431) BLOOD UREA NITROGEN 59 mg/dL 7-21 (BEAKER) (test mwsh=805) CREATININE (BEAKER) (test 2.81 mg/dL 0.57-1.25 pqhz=787) GLUCOSE RANDOM (BEAKER) 105 mg/dL 70-105 (test ipvm=468) CALCIUM (BEAKER) (test 8.6 mg/dL 8.4-10.2 opzy=362) AST (SGOT) (BEAKER) (test 20 U/L 5-34 sgjp=517) ALT (SGPT) (BEAKER) (test 19 U/L 6-55 kaot=543) EGFR (BEAKER) (test 22 mL/min/1.73 sq m ESTIMATED GFR IS NOT tjax=9219) ACCURATE CREATININE CLEARANCE IN PREDICTING GLOMERULAR FILTRATION RATE. ESTIMATED GFR IS NOT APPLICABLE FOR DIALYSIS PATIENTS. B-TYPE NATRIURETIC FACTOR (BNP)2017-11-19 04:37:00 Test Item Value Reference Range Comments B-TYPE NATRIURETIC PEPTIDE (BEAKER) (test 561 pg/mL 0-100 uowm=299) [id number] 04:37:00 Test Item Value Reference Range Comments PHOSPHORUS (BEAKER) (test pexu=053) 6.1 mg/dL 2.3-4.7 [id number] 04:37:00 Test Item Value Reference Range Comments MAGNESIUM (BEAKER) (test xhmu=414) 1.8 mg/dL 1.6-2.6 CBC W/PLT COUNT & AUTO [id number] 04:18:00 Test Item Value Reference Range Comments WHITE BLOOD CELL COUNT (BEAKER) (test uylb=662) 8.2 K/ L 3.5-10.5 RED BLOOD CELL COUNT (BEAKER) (test ucny=854) 3.15 M/ L 4.63-6.08 HEMOGLOBIN (BEAKER) (test uadi=593) 9.0 GM/DL 13.7-17.5 HEMATOCRIT (BEAKER) (test etgc=505) 27.2 % 40.1-51.0 MEAN CORPUSCULAR VOLUME (BEAKER) (test wmhf=205) 86.3 fL 79.0-92.2 MEAN CORPUSCULAR HEMOGLOBIN (BEAKER) (test 28.6 pg 25.7-32.2 zxni=204) MEAN CORPUSCULAR HEMOGLOBIN CONC (BEAKER) (test 33.1 GM/DL 32.3-36.5 qvkl=792) RED CELL DISTRIBUTION WIDTH (BEAKER) (test 14.5 % 11.6-14.4 cdwb=646) PLATELET COUNT (BEAKER) (test xdbd=633) 319 K/CU MM 150-450 MEAN PLATELET VOLUME (BEAKER) (test memu=132) 9.4 fL 9.4-12.4 NUCLEATED RED BLOOD CELLS (BEAKER) (test 0 /100 WBC 0-0 eaae=769) NEUTROPHILS RELATIVE PERCENT (BEAKER) (test 69 % dqbm=918) LYMPHOCYTES RELATIVE PERCENT (BEAKER) (test 10 % mfwc=273) MONOCYTES RELATIVE PERCENT (BEAKER) (test 19 % njmq=375) EOSINOPHILS RELATIVE PERCENT (BEAKER) (test 2 % mkdr=944) BASOPHILS RELATIVE PERCENT (BEAKER) (test 0 % jfiq=491) NEUTROPHILS ABSOLUTE COUNT (BEAKER) (test 5.68 K/ L 1.78-5.38 ueod=018) LYMPHOCYTES ABSOLUTE COUNT (BEAKER) (test 0.81 K/ L 1.32-3.57 lnff=795) MONOCYTES ABSOLUTE COUNT (BEAKER) (test 1.55 K/ L 0.30-0.82 cawm=930) EOSINOPHILS ABSOLUTE COUNT (BEAKER) (test 0.14 K/ L 0.04-0.54 jzym=980) BASOPHILS ABSOLUTE COUNT (BEAKER) (test 0.02 K/ L 0.01-0.08 lyau=018) IMMATURE GRANULOCYTES-RELATIVE PERCENT (BEAKER) 1 % 0-1 (test sgar=1489) [id number] 02:41:00 Test Item Value Reference Range Comments POTASSIUM (BEAKER) (test ulsn=473) 4.7 meq/L 3.5-5.1 LACTIC ACID, VENOUS, WHOLE [id number] 00:45:00 Test Item Value Reference Range Comments LACTATE BLOOD VENOUS (2) 7.6 mmol/L 0.5-2.2 Specimen slightly hemolyzed (BEAKER) (test opnd=6837) Effective 09/27/2015: Units/Reference Range ChangeNew: 0.5-2.2 mmol/L Previous: 5 -20 mg/dLPOCT-GLUCOSE [id number] 00:27:00 Test Item Value Reference Range Comments POC-GLUCOSE METER (BEAKER) 159 mg/dL 70-110 TESTED AT [facility] [address] [facility] (test xphq=1899) [facility] [address] CREATINE KINASE (CK), TOTAL AND [id number] 22:57:00 Test Item Value Reference Range Comments CREATINE KINASE TOTAL (BEAKER) (test nnzo=321) 175 U/L 29-200 CREATINE KINASE-MB (BEAKER) (test sgik=085) 12.3 ng/mL 0.0-6.6 CREATINE KINASE-MB INDEX (BEAKER) (test sbhi=148) 7.0 % CK-MB Reference Range:<6.7 Normal6.7-10.0 Borderline>10.0 AbnormalTROPONIN [id number] 22:57:00 Test Item Value Reference Range Comments TROPONIN I (BEAKER) (test gbst=844) 0.04 ng/mL 0.00-0.03 Troponin I (TnI) levels must be interpreted [...] failure, acidosis, acute neurological disease, and persistent tachyarrhythmia.[id number] 22:51:00 Test Item Value Reference Range Comments POTASSIUM (BEAKER) (test fbjo=154) 4.7 meq/L 3.5-5.1 POCT-GLUCOSE [id number] 19:28:00 Test Item Value Reference Range Comments POC-GLUCOSE METER (BEAKER) 117 mg/dL 70-110 TESTED AT [facility] [address] [facility] (test fzji=2005) [facility] [address] BASIC METABOLIC [id number] 19:07:00 Test Item Value Reference Range Comments SODIUM (BEAKER) (test 133 meq/L 136-145 jecc=885) POTASSIUM (BEAKER) (test 4.6 meq/L 3.5-5.1 irzn=519) CHLORIDE (BEAKER) (test 95 meq/L 98-107 zocf=419) CO2 (BEAKER) (test 19 meq/L 22-29 idjq=745) BLOOD UREA NITROGEN 57 mg/dL 7-21 (BEAKER) (test shjn=998) CREATININE (BEAKER) (test 2.64 mg/dL 0.57-1.25 ivky=226) GLUCOSE RANDOM (BEAKER) 131 mg/dL 70-105 (test lfhv=285) CALCIUM (BEAKER) (test 9.1 mg/dL 8.4-10.2 ycex=675) EGFR (BEAKER) (test 23 mL/min/1.73 sq m ESTIMATED GFR IS NOT kdzz=8866) ACCURATE CREATININE CLEARANCE IN PREDICTING GLOMERULAR FILTRATION RATE. ESTIMATED GFR IS NOT APPLICABLE FOR DIALYSIS PATIENTS. Call [id number] ACID, VENOUS, WHOLE [id number] 19:00:00 Test Item Value Reference Range Comments LACTATE BLOOD VENOUS (2) (BEAKER) (test 5.8 mmol/L 0.5-2.2 tswk=7976) Effective 09/27/2015: Units/Reference Range ChangeNew: 0.5-2.2 mmol/L Previous: 5 -20 mg/dLU/S, RENAL, [id number] 16:16:00Reason for exam:->akiShould this be performed at the bedside?->YesFINAL REPORT Ultrasound of the Kidneys Clinical History: bassem Discussion: Sonographic evaluation of the kidneys is performed. Right kidney: 10 x 4.7 x 4 cm, with cortical thickness of 1.1 cm. Normal cortical echogenicity. No mass. No shadowing calculus. No hydronephrosis. Left kidney: 10.2 x 4.5 x 4.7 cm, with cortical thickness of 1.3 cm. Normal cortical echogenicity. [place]. No shadowing calculus. No hydronephrosis. Limited doppler evaluation of right main renal artery and vein demonstrate patency. Left renal vessels are poorly visualized due to patient's body habitus. Bladder: Decompressed with Jern[place] catheter. Impression: No hydronephrosis. Signed: Nahid [place] Verified Date /Time: 11/18/2017 16:16:10 Reading Location: [address] Ultrasound Reading Room CREATINE KINASE (CK), TOTAL AND [id number] 15:14:00 Test Item Value Reference Range Comments CREATINE KINASE TOTAL (BEAKER) (test qvxa=673) 173 U/L 29-200 CREATINE KINASE-MB (BEAKER) (test svys=460) 11.1 ng/mL 0.0-6.6 CREATINE KINASE-MB INDEX (BEAKER) (test bejk=817) 6.4 % CK-MB Reference Range:<6.7 Normal6.7-10.0 Borderline>10.0 AbnormalTROPONIN [id number] 15:14:00 Test Item Value Reference Range Comments TROPONIN I (BEAKER) (test gbal=202) 0.04 ng/mL 0.00-0.03 Troponin I (TnI) levels must be interpreted [...] failure, acidosis, acute neurological disease, and persistent tachyarrhythmia.BASIC METABOLIC [id number] 15:11:00 Test Item Value Reference Range Comments SODIUM (BEAKER) (test 137 meq/L 136-145 cjsn=722) POTASSIUM (BEAKER) (test 4.4 meq/L 3.5-5.1 xxvv=156) CHLORIDE (BEAKER) (test 97 meq/L 98-107 mbss=286) CO2 (BEAKER) (test 17 meq/L 22-29 llrk=418) BLOOD UREA NITROGEN 55 mg/dL 7-21 (BEAKER) (test bhiq=429) CREATININE (BEAKER) (test 2.48 mg/dL 0.57-1.25 ypkv=411) GLUCOSE RANDOM (BEAKER) 66 mg/dL 70-105 (test vyhw=798) CALCIUM (BEAKER) (test 9.3 mg/dL 8.4-10.2 zmtb=778) EGFR (BEAKER) (test 25 mL/min/1.73 sq m ESTIMATED GFR IS NOT vuoo=6386) ACCURATE CREATININE CLEARANCE IN PREDICTING GLOMERULAR FILTRATION RATE. ESTIMATED GFR IS NOT APPLICABLE FOR DIALYSIS PATIENTS. [id number] 15:06:00 Test Item Value Reference Range Comments PHOSPHORUS (BEAKER) (test gjdg=306) 5.4 mg/dL 2.3-4.7 [id number] 15:06:00 Test Item Value Reference Range Comments MAGNESIUM (BEAKER) (test jlis=686) 2.8 mg/dL 1.6-2.6 URINALYSIS W/ REFLEX URINE [id number] 14:00:00 Test Item Value Reference Range Comments COLOR (BEAKER) (test afuf=078) Yellow CLARITY (BEAKER) (test nheo=040) Hazy SPECIFIC GRAVITY UA (BEAKER) (test hnsz=604) 1.013 1.001-1.035 PH UA (BEAKER) (test sivs=023) 6.5 5.0-8.0 PROTEIN UA (BEAKER) (test coeb=185) 600 mg/dL Negative GLUCOSE UA (BEAKER) (test sido=245) 200 mg/dL Negative KETONES UA (BEAKER) (test xnag=505) Negative Negative BILIRUBIN UA (BEAKER) (test fyyg=111) Negative Negative BLOOD UA (BEAKER) (test fdfz=545) Small Negative NITRITE UA (BEAKER) (test aeay=895) Negative Negative LEUKOCYTE ESTERASE UA (BEAKER) (test vpkg=933) Moderate Negative UROBILINOGEN UA (BEAKER) (test tfyu=355) 0.2 mg/dL 0.2-1.0 RBC UA (BEAKER) (test bdoh=369) 2 /HPF WBC UA (BEAKER) (test hhzm=039) 3 /HPF SQUAMOUS EPITHELIAL (BEAKER) (test kbhe=278) < /HPF GRANULAR CASTS (BEAKER) (test rhkr=941) 2 /LPF SOURCE(BEAKER) (test svlm=0530) CBC W/PLT COUNT & AUTO [id number] 12:50:00 Test Item Value Reference Range Comments WHITE BLOOD CELL COUNT (BEAKER) (test zvqe=787) 14.7 K/ L 3.5-10.5 RED BLOOD CELL COUNT (BEAKER) (test rmiq=868) 3.47 M/ L 4.63-6.08 HEMOGLOBIN (BEAKER) (test pwpv=977) 10.2 GM/DL 13.7-17.5 HEMATOCRIT (BEAKER) (test kuig=263) 32.0 % 40.1-51.0 MEAN CORPUSCULAR VOLUME (BEAKER) (test waxw=992) 92.2 fL 79.0-92.2 MEAN CORPUSCULAR HEMOGLOBIN (BEAKER) (test 29.4 pg 25.7-32.2 ifan=995) MEAN CORPUSCULAR HEMOGLOBIN CONC (BEAKER) (test 31.9 GM/DL 32.3-36.5 hbqu=208) RED CELL DISTRIBUTION WIDTH (BEAKER) (test 14.7 % 11.6-14.4 cakr=134) PLATELET COUNT (BEAKER) (test wvtk=812) 450 K/CU MM 150-450 MEAN PLATELET VOLUME (BEAKER) (test coim=568) 9.9 fL 9.4-12.4 NUCLEATED RED BLOOD CELLS (BEAKER) (test 0 /100 WBC 0-0 pkbe=886) (CELLAVISION MANUAL DIFF)2017-11-18 12:50:00 Test Item Value Reference Range Comments NEUTROPHILS - REL (CELLAVISION)(BEAKER) (test 78 % vtni=6534) LYMPHOCYTES - REL (CELLAVISION)(BEAKER) (test 8 % jqog=0487) MONOCYTES - REL (CELLAVISION)(BEAKER) (test 10 % vjzx=3843) BANDS - REL (CELLAVISION)(BEAKER) (test 1 % 0-10 cggs=4998) ATYPICAL LYMPHOCYTES - REL (CELLAVISION)(BEAKER) 3 % 0-0 (test hcuv=5049) NEUTROPHILS - ABS (CELLAVISION)(BEAKER) (test 11.47 K/ul 1.78-5.38 ljij=6771) LYMPHOCYTES - ABS (CELLAVISION)(BEAKER) (test 1.18 K/ul 1.32-3.57 azuf=8895) MONOCYTES - ABS (CELLAVISION)(BEAKER) (test 1.47 K/uL 0.30-0.82 ujxo=9863) BANDS - ABS (CELLAVISION)(BEAKER) (test 0.15 K/uL 0.00-0.80 hltp=8436) ATYPICAL LYMPHOCYTES - ABS (CELLAVISION)(BEAKER) 0.44 K/uL 0.00-0.00 (test dlgu=5568) TOTAL COUNTED (BEAKER) (test gwod=3547) 100 PLT MORPHOLOGY (BEAKER) (test rrdx=158) Normal SMUDGE CELLS (BEAKER) (test okri=2594) Present POIKILOCYTES (BEAKER) (test txlm=323) 2+ moderate LENIN CELLS (BEAKER) (test taue=300) 2+ moderate PLATELET CONCENTRATION (CELLAVISION)(BEAKER) Adequate (test luzq=8303) Received comment: User comments: Slide comments:HEPATITIS B SURFACE [id number] 12:11:00 Test Item Value Reference Range Comments HEPATITIS B SURFACE ANTIGEN (2) (BEAKER) (test Nonreactive Nonreactive odpr=3344) HEPATITIS B CORE ANTIBODY, [id number] 12:11:00 Test Item Value Reference Range Comments HEPATITIS B CORE IGM ANTIBODY (BEAKER) (test Nonreactive Nonreactive busl=415) HEPATITIS C [id number] 12:11:00 Test Item Value Reference Range Comments HEPATITIS C ANTIBODY (BEAKER) (test xvpx=738) Nonreactive Nonreactive HEPATITIS B CORE ANTIBODY, [id number] 12:11:00 Test Item Value Reference Range Comments HEPATITIS B CORE TOTAL ANTIBODY (BEAKER) (test Nonreactive Nonreactive yclx=910) POCT-GLUCOSE [id number] 12:05:00 Test Item Value Reference Range Comments POC-GLUCOSE METER (BEAKER) 179 mg/dL 70-110 TESTED AT [facility] [address] [facility] (test xeyp=6893) [facility] [address] LACTIC ACID, VENOUS, WHOLE [id number] 11:18:00 Test Item Value Reference Range Comments LACTATE BLOOD VENOUS (2) (BEAKER) (test 8.0 mmol/L 0.5-2.2 rgxw=5210) Effective 09/27/2015: Units/Reference Range ChangeNew: 0.5-2.2 mmol/L Previous: 5 -20 mg/[id number] 11:16:00 Test Item Value Reference Range Comments POTASSIUM (BEAKER) (test qfpy=947) 5.3 meq/L 3.5-5.1 BLOOD GAS, [id number] 10:48:00 Test Item Value Reference Range Comments PH VENOUS (BEAKER) (test mwss=396) 7.49 7.32-7.42 PCO2 VENOUS (BEAKER) (test ouaz=256) 24 mmHg 41-51 PO2 VENOUS (BEAKER) (test gvag=765) 41 mmHg 25-40 O2 SATURATION VENOUS (BEAKER) (test myww=692) 86.8 % 40.0-70.0 HCO3 VENOUS (BEAKER) (test qsqf=187) 18 mmol/L 21-29 BASE EXCESS VENOUS (BEAKER) (test dtxn=259) -4.6 mmol/L -2.0-3.0 PATIENT TEMPERATURE (BEAKER) (test yhbq=2600) 34.5 C FIO2 (BEAKER) (test bagq=6009) 36.0 % [id number] 10:27:00 Test Item Value Reference Range Comments SODIUM (BEAKER) (test tgxa=724) 133 meq/L 136-145 POTASSIUM (BEAKER) (test hxlf=529) 6.8 meq/L 3.5-5.1 CHLORIDE (BEAKER) (test rxow=521) 102 meq/L 98-107 CO2 (BEAKER) (test bfeh=731) 8 meq/L 22-29 Call [id number] FUNCTION [id number] 10:23:00 Test Item Value Reference Range Comments TOTAL PROTEIN (BEAKER) (test rvjj=681) 6.3 gm/dL 6.0-8.3 ALBUMIN (BEAKER) (test hlaq=5221) 3.2 g/dL 3.5-5.0 BILIRUBIN TOTAL (BEAKER) (test vtcs=672) 0.4 mg/dL 0.2-1.2 BILIRUBIN DIRECT (BEAKER) (test zjsc=731) 0.2 mg/dL 0.1-0.5 ALKALINE PHOSPHATASE (BEAKER) (test knzx=043) 95 U/L 40-150 AST (SGOT) (BEAKER) (test gtgh=784) 20 U/L 5-34 ALT (SGPT) (BEAKER) (test dbos=115) 21 U/L 6-55 Call [id number] 10:14:00 Test Item Value Reference Range Comments PHOSPHORUS (BEAKER) (test xkpo=858) 10.6 mg/dL 2.3-4.7 [id number] 10:12:00 Test Item Value Reference Range Comments MAGNESIUM (BEAKER) (test zikw=557) 2.2 mg/dL 1.6-2.6 BLOOD GAS, [id number] 09:10:00 Test Item Value Reference Range Comments PH VENOUS (BEAKER) (test tnnl=246) 7.24 7.32-7.42 PCO2 VENOUS (BEAKER) (test jydj=253) 24 mmHg 41-51 PO2 VENOUS (BEAKER) (test vddr=166) 54 mmHg 25-40 O2 SATURATION VENOUS (BEAKER) (test ajgw=210) 86.6 % 40.0-70.0 HCO3 VENOUS (BEAKER) (test saor=381) 10 mmol/L 21-29 BASE EXCESS VENOUS (BEAKER) (test tspc=302) -16.0 mmol/L -2.0-3.0 PATIENT TEMPERATURE (BEAKER) (test carg=3999) 35.6 C FIO2 (BEAKER) (test wsvi=7100) 36.0 % RAD, CHEST, 1 VIEW, NON [id number] 08:59:00Reason for exam:->edemaShould this be performed at the bedside?->YesFINAL REPORT Chest one view Discussion: Semiconfluent bilateral pulmonary opacities presumably representing edema. There is some suspected scattered nodularity that probably represents granulomas. No gross effusion or pneumothorax. Right IJ line in place. Heart size normal. Signed: Renu Hirsch Verified Date /Time: 11/18/2017 08:59:05 Reading Location: [facility] Radiology Reading Room [id number] 07:53:00 Test Item Value Reference Range Comments PHOSPHORUS (BEAKER) (test jfxn=624) 10.8 mg/dL 2.3-4.7 CALCIUM, [id number] 07:12:00 Test Item Value Reference Range Comments CALCIUM IONIZED (BEAKER) (test bvdc=927) 1.14 mmol/L 1.12-1.27 PH, BLOOD (BEAKER) (test aywv=9155) 7.11 BASIC METABOLIC [id number] 07:04:00 Test Item Value Reference Range Comments SODIUM (BEAKER) (test 129 meq/L 136-145 lrxd=088) POTASSIUM (BEAKER) (test 7.3 meq/L 3.5-5.1 sjqk=711) CHLORIDE (BEAKER) (test 102 meq/L 98-107 gptb=930) CO2 (BEAKER) (test 6 meq/L 22-29 hhsp=497) BLOOD UREA NITROGEN 123 mg/dL 7-21 (BEAKER) (test muqr=277) CREATININE (BEAKER) (test 4.47 mg/dL 0.57-1.25 erbp=300) GLUCOSE RANDOM (BEAKER) 222 mg/dL 70-105 (test wequ=476) CALCIUM (BEAKER) (test 9.5 mg/dL 8.4-10.2 ghdv=849) EGFR (BEAKER) (test 13 mL/min/1.73 sq m ESTIMATED GFR IS NOT lrrq=9566) ACCURATE CREATININE CLEARANCE IN PREDICTING GLOMERULAR FILTRATION RATE. ESTIMATED GFR IS NOT APPLICABLE FOR DIALYSIS PATIENTS. POCT-GLUCOSE [id number] 06:57:00 Test Item Value Reference Range Comments POC-GLUCOSE METER (BEAKER) 203 mg/dL 70-110 TESTED AT [facility] [address] [facility] (test qvup=8416) [facility] [address] CREATINE KINASE (CK), TOTAL AND [id number] 06:54:00 Test Item Value Reference Range Comments CREATINE KINASE TOTAL (BEAKER) (test tfwm=980) 94 U/L 29-200 CREATINE KINASE-MB (BEAKER) (test rehs=458) 7.4 ng/mL 0.0-6.6 CREATINE KINASE-MB INDEX (BEAKER) (test abtc=982) 7.9 % CK-MB Reference Range:<6.7 Normal6.7-10.0 Borderline>10.0 AbnormalTROPONIN [id number] 06:54:00 Test Item Value Reference Range Comments TROPONIN I (BEAKER) (test kwzi=960) 0.02 ng/mL 0.00-0.03 Troponin I (TnI) levels must be interpreted [...] failure, acidosis, acute neurological disease, and persistent tachyarrhythmia.[id number] 06:53:00 Test Item Value Reference Range Comments MAGNESIUM (BEAKER) (test kwzh=215) 2.3 mg/dL 1.6-2.6 B-TYPE NATRIURETIC FACTOR (BNP)2017-11-18 06:38:00 Test Item Value Reference Range Comments B-TYPE NATRIURETIC PEPTIDE (BEAKER) (test 866 pg/mL 0-100 gxuu=029) PROTHROMBIN TIME/[id number] 06:36:00 Test Item Value Reference Range Comments PROTIME (BEAKER) (test cqom=961) 16.1 seconds 11.7-14.7 INR (BEAKER) (test driz=251) 1.3 <=5.9 RECOMMENDED COUMADIN/WARFARIN INR THERAPY RANGESSTANDARD DOSE: 2.0 - 3.0 Includes: PROPHYLAXIS forvenous thrombosis, systemic embolization; TREATMENT for venous thrombosis and/or pulmonary embolus.HIGH RISK: Target INR is 2.5-3.5 for patients with mechanical heart valves.LACTIC ACID, VENOUS, WHOLE [id number] 06:15:00 Test Item Value Reference Range Comments LACTATE BLOOD VENOUS (2) (BEAKER) (test 8.9 mmol/L 0.5-2.2 rhmq=4694) Effective 09/27/2015: Units/Reference Range ChangeNew: 0.5-2.2 mmol/L Previous: 5 -20 mg/dL
[2017-12-10] MEDS ORDERED: D50W 25 GM/50 ML SYRINGE IV ONE ×2 (16:59→19:13)
[2017-12-10 17:02] LABS: Arterial Blood Carboxyhemoglob 1.1 % (0-1.5); Blood Gas Oxyhemoglobin 93.5 % (94-97); Blood O2 Saturation 95.6 % (92-98.5)
--- NOTE | 2017-12-10 17:11 | RAD REPORT ---
EXAM DESCRIPTION: RAD - Chest Single View - 12/10/2017 4:45 pm CLINICAL HISTORY: Cough, shortness of breath COMPARISON: November 18 TECHNIQUE: AP portable chest image was obtained 1641 hours . FINDINGS: Lung volumes remain low. This accentuates heart, vasculature and lung markings. Scattered granulomas are present. Lung markings are prominent in part due to the shallow inspiration. A mild in terstitial edema or infiltrate could be masked. Lung markings overall are slightly less pronounced th an seen on the October comparison. Trachea midline. Heart and vasculature are normal. No measurable pleural effusion and no pneumothorax . No gross bony abnormality seen. No acute aortic findings suspected. IMPRESSION: Interstitial markings are accentuated by body habitus and shallow inspiration. Early aram ma or infiltrate could be masked. Lung markings overall are improved from the November 18 study.
[2017-12-10 17:12] LABS: Absolute Monocytes 1.1 K/uL (0.1-1.3); Absolute Neutrophil 5.5 K/uL (1.8-8.0); Basophils % 1.8 % (0-1.3); Eosinophils % 11.1 % (0-4.4); Hematocrit 29.2 % (39.6-49.0); Lymphocytes % 20.5 % (15.3-44.8); MCH 29.4 pg (27.0-35.0); MCV 86.8 fL (80-100); MPV 7.6 fL (7.6-11.3); Monocytes % 10.7 % (3.3-12.3); RBC Red Blood Cell Count 3.36 M/uL (4.33-5.43)
[2017-12-10 17:15] LABS: Protime INR 1.05
[2017-12-10 18:14] LABS: ALT/SGPT 34 U/L (12-78); AST/SGOT 31 U/L (15-37); Albumin 2.8 g/dL (3.4-5.0); Alkaline Phosphatase 205 U/L (45-117); Amylase Level 107 U/L (25-115); BUN Blood Urea Nitrogen 66 mg/dL (7-18); Bicarbonate 17 mmol/L (21-32); Bilirubin Direct < 0.1 mg/dL (0-0.2); Bilirubin Total 0.2 mg/dL (0.2-1.0); CKMB Creatine Kinase MB 4.1 ng/mL (0.3-3.6); Creatine Phosphokinase 80 U/L (39-308); Glucose Level 65 mg/dL (74-106); Lipase 1093 U/L (73-393); Protein, Total 6.9 g/dL (6.4-8.2); Sodium Level 137 mmol/L (136-145)
[2017-12-10 18:35] LABS: Urine Blood TRACE (NEG); Urine Glucose NEGATIVE (NEG); Urine Protein 3+ (NEG); Urine pH 5.5 (5.0-7.0)
[2017-12-10 18:40] LABS: Potassium 6.2 mmol/L (3.5-5.1)
[2017-12-10 18:41] LABS: Urine Amorphous Sediment 3+ /HPF (NONE SEEN); Urine Bacteria <20 /HPF (NONE SEEN); Urine Culture Reflex Order NOT NEEDED; Urine RBC <5 /HPF (NONE SEEN)
[2017-12-10] MEDS ORDERED: CEFTRIAXONE/SWI 1gm 1 GM/10 ML SYR ONE (18:42)
[2017-12-10] MEDS ORDERED: INSULIN -REGULAR HUMAN 50 UNIT/0.5 ML ML ONE (19:12)
--- NOTE | 2017-12-10 19:14 | EDPHYS ---
Physician Documentation [facility] Name: Nayla Greenberg Age: 82 yrs Sex: Male : 1935 Arrival Date: 12/10/2017 Time: 16:16 Bed 30 Private MD: ED Physician Elkin Roberson HPI: 12/10 16:40 This 82 yrs old Male presents to ER via EMS with complaints of Leg Swelling. snw 16:40 bilateral lower ext edema. Onset: The symptoms/episode began/occurred suddenly, this snw morning. Severity of symptoms: At their worst the symptoms were moderate. The patient has experienced a previous episode, approximately 1 months ago, but today's symptoms are not as bad as this previous episode. The patient has not recently seen a physician. left after one week hospitalization at [facility]. MD requested pt stay in rehab for longer but pt states he left [facility] because he didn't like the food.. Historical: - Allergies: 16:21 adhesive tape-silicones; ph - Home Meds: 16:28 amlodipine 10 mg tab 1 tab once daily [Active]; gabapentin 300 mg Oral cap 1 cap at kr2 bedtime [Active]; Lasix 40 mg Oral tab once daily [Active]; Lipitor Oral [Active]; metformin 1,000 mg Oral tab 2 times per day [Active]; metoprolol tartrate 25 mg Oral tab 0.5 tab 2 times per day [Active]; multivitamin Oral daily [Active]; Vitamin D Oral 400 unit daily [Active]; - PMHx: 16:21 Diabetes - NIDDM; Hyperlipidemia; Hypertension; muscle atrophy; paralysis; renal ph failure; - Immunization history:: Adult Immunizations unknown. - Social history:: Smoking status: Patient/guardian denies using tobacco. - Ebola Screening: : No symptoms or risks identified at this time. ROS: 16:38 Constitutional: Negative for fever, chills, and weight loss, Eyes: Negative for injury, snw pain, redness, and discharge, ENT: Negative for injury, pain, and discharge, Neck: Negative for injury, pain, and swelling, Cardiovascular: Negative for chest pain, palpitations, and edema, Respiratory: Negative for shortness of breath, cough, wheezing, and pleuritic chest pain, Abdomen/GI: Negative for abdominal pain, nausea, vomiting, diarrhea, and constipation, Back: Negative for injury and pain, : Negative for injury, bleeding, discharge, and swelling, Skin: Negative for injury, rash, and discoloration, Neuro: Negative for headache, weakness, numbness, tingling, and seizure, Psych: Negative for depression, anxiety, suicide ideation, homicidal ideation, and hallucinations. 16:38 MS/extremity: Positive for swelling. Exam: 16:37 Constitutional: This is a well developed, well nourished patient who is awake, alert, snw and in no acute distress. Head/Face: Normocephalic, atraumatic. Eyes: Pupils equal round and reactive to light, extra-ocular motions intact. Lids and lashes normal. Conjunctiva and sclera are non-icteric and not injected. Cornea within normal limits. Periorbital areas with no swelling, redness, or edema. ENT: Nares patent. No nasal discharge, no septal abnormalities noted. Tympanic membranes are normal and external auditory canals are clear. Oropharynx with no redness, swelling, or masses, exudates, or evidence of obstruction, uvula midline. Mucous membranes moist. Neck: Trachea midline, no thyromegaly or masses palpated, and no cervical lymphadenopathy. Supple, full range of motion without nuchal rigidity, or vertebral point tenderness. No Meningismus. Chest/axilla: Normal chest wall appearance and motion. Nontender with no deformity. No lesions are appreciated. Cardiovascular: Regular rate and rhythm with a normal S1 and S2. No gallops, murmurs, or rubs. Normal PMI, no JVD. No pulse deficits. Respiratory: Lungs have equal breath sounds bilaterally, clear to auscultation and percussion. No rales, rhonchi or wheezes noted. No increased work of breathing, no retractions or nasal flaring. Abdomen/GI: Soft, non-tender, with normal bowel sounds. No distension or tympany. No guarding or rebound. No evidence of tenderness throughout. Back: No spinal tenderness. No costovertebral tenderness. Full range of motion. Skin: Warm, dry with normal turgor. Normal color with no rashes, no lesions, and no evidence of cellulitis. Evidence of previous extravasation injury of left upper chest wall. Pt states it started as a blister and then over the week long hospitalization he kept dragging his O2 over the area and it opened and enlarged. Area clean, scabbed Neuro: Awake and alert, GCS 15, oriented to person, place, time, and situation. Cranial nerves II-XII grossly intact. Motor strength 5/5 in all extremities. Sensory grossly intact. Cerebellar exam normal. Normal gait. Psych: Awake, alert, with orientation to person, place and time. Behavior, mood, and affect are within normal limits. 16:37 Musculoskeletal/extremity: Extremities: grossly normal except: bilateral lower extremity edema, Circulation is intact in all extremities. Sensation intact. Vital Signs: 16:21 Weight 101.15 kg; Height 5 ft. 8 in. (172.72 cm); Pain 0/10; ph 16:21 BP 113 / 53; Pulse 61; Resp 19; Temp 98.4; Pulse Ox 99% on R/A; Pain 0/10; kr2 17:27 BP 107 / 55; Pulse 58; Resp 18; Pulse Ox 98% on R/A; kr2 18:37 BP 116 / 56; Pulse 59; Resp 19; Pulse Ox 100% on R/A; kr2 19:27 BP 103 / 77; Pulse 67; Resp 17; Pulse Ox 100% on R/A; kr2 20:58 BP 109 / 81; Pulse 64; Resp 18; Pulse Ox 100% on R/A; jb5 22:00 BP 113 / 78; Pulse 60; Resp 19; Pulse Ox 99% on R/A; kr2 16:21 Body Mass Index 33.91 (101.15 kg, 172.72 cm) ph MDM: 16:53 Patient medically screened. snw 17:55 Data reviewed: vital signs, nurses notes. Data interpreted: Pulse oximetry: on room air snw is 98 %. Interpretation: normal. Counseling: I had a detailed discussion with the patient and/or guardian regarding: the historical points, exam findings, and any diagnostic results supporting the discharge/admit diagnosis. Physician consultation: Elkin Roberson MD was called at 17:56, was contacted at 17:56. Transition of care: After a detail discussion of the patient's case, care is transferred to Elkin Roberson MD. 19:10 Special discussion: pt noted with hyperkalemia. emergent treatment given. will admit. wa of note, pt with elevated lipase. need further eval. denies abd pain or vomiting. states pt has not been eating much with loss of appetite. 19:16 Test interpretation: by ED physician or midlevel provider: labs noted for elevated wa lipase. renal insufficiency. anemia. elevated lactate. . 12/10 16:26 Order name: T\T\S; Complete Time: 17:41 snw 12/10 16:26 Order name: Urine Microscopic Only; Complete Time: 18:45 snw 12/10 16:26 Order name: Urine Culture snw 12/10 16:26 Order name: ABG; Complete Time: 17:41 snw 12/10 16:26 Order name: Amylase, Serum; Complete Time: 18:45 snw 12/10 16:26 Order name: Basic Metabolic Panel; Complete Time: 18:45 snw 12/10 16:26 Order name: Blood Culture Adult (2) w 12/10 16:26 Order name: C-Reactive Protein; Complete Time: 18:45 snw 12/10 16:26 Order name: CBC with Diff; Complete Time: 17:41 snw 12/10 16:26 Order name: Ckmb; Complete Time: 19:02 snw 12/10 16:26 Order name: CPK; Complete Time: 18:45 snw 12/10 16:26 Order name: Lactate; Complete Time: 17:50 snw 12/10 16:26 Order name: LFT's; Complete Time: 18:45 snw 12/10 16:26 Order name: Lipase; Complete Time: 18:45 snw 12/10 16:26 Order name: Procalcitonin; Complete Time: 17:41 snw 12/10 16:26 Order name: Protime (+inr); Complete Time: 17:41 snw 12/10 16:26 Order name: Ptt, Activated; Complete Time: 17:41 snw 12/10 16:26 Order name: Sed Rate; Complete Time: 17:41 snw 12/10 16:26 Order name: Troponin (emerg Dept Use Only); Complete Time: 17:41 snw 12/10 18:33 Order name: Urine Dipstick--Ancillary (enter results); Complete Time: 18:45 bd 12/10 19:55 Order name: Basic Metabolic Panel kr2 12/10 21:04 Order name: CBC with Automated Diff [facility]MS 12/10 21:04 Order name: CBC with Automated Diff [facility] 12/10 21:04 Order name: Comprehensive Metabolic Panel [facility] 12/10 21:04 Order name: Comprehensive Metabolic Panel [facility] 12/10 21:04 Order name: Lipase [facility] 12/10 21:04 Order name: Lipase [facility] 12/10 21:04 Order name: Lipid Profile [facility] 12/10 21:04 Order name: Lipid Profile [facility] 12/10 21:35 Order name: Lactate Sepsis 2 HR Follow-up [facility] 12/10 16:26 Order name: Cath; Complete Time: 18:36 snw 12/10 16:26 Order name: Chest Single View XRAY; Complete Time: 17:41 snw 12/10 16:26 Order name: Accucheck; Complete Time: 17:12 snw 12/10 16:26 Order name: Cardiac monitoring; Complete Time: 17:12 snw 12/10 16:26 Order name: EKG - Nurse/Tech; Complete Time: 17:52 snw 12/10 16:26 Order name: IV Saline Lock - Large Bore; Complete Time: 17:12 snw 12/10 16:26 Order name: Labs collected and sent; Complete Time: 17:12 snw 12/10 16:26 Order name: O2 Per Protocol; Complete Time: 17:12 snw 12/10 16:26 Order name: O2 Sat Monitoring; Complete Time: 17:12 snw 12/10 16:26 Order name: Urine Dipstick-Ancillary (obtain specimen); Complete Time: 18:36 snw 12/10 17:29 Order name: ARTERIAL BLOOD GAS [facility] 12/10 21:04 Order name: CONS Pharmacy Consult [facility] 12/10 21:04 Order name: NPO [facility] Administered Medications: 17:03 Drug: D50W 50 ml Route: IVP; Site: right wrist; ch 17:51 Follow up: Response: No adverse reaction; No adverse reaction, blood glucose up to 159 kr2 18:47 Drug: Rocephin 1 grams Route: IV; Rate: calculated rate; Site: right wrist; kr2 18:55 Follow up: Response: No adverse reaction; IV Status: Completed infusion kr2 19:08 Drug: D50W 50 ml Route: IVP; Site: right wrist; kr2 20:06 Follow up: Response: No adverse reaction kr2 19:10 Drug: Insulin Regular Human 10 units {Co-Signature: kr2 (Amelia Reyes RN).} Route: IVP; Site: right wrist; 20:06 Follow up: Response: No adverse reaction kr2 19:22 Drug: D50W 50 ml Route: IVP; Site: right wrist; kr2 20:07 Follow up: Response: No adverse reaction kr2 Point of Care Testing: Blood Glucose: 16:52 Blood Glucose: 64 mg/dL; kr2 17:53 Blood Glucose: 159 mg/dL; kr2 19:51 Blood Glucose: 294 mg/dL; kr2 20:57 Blood Glucose: 249 mg/dL; jb5 Ranges: Critical Glucose Levels:Adult <50 mg/dl or >400 mg/dl <40 mg/dl or >180 mg/dl Disposition: 12/10/17 19:13 Hospitalization ordered by Cely Snow for Inpatient Admission. Preliminary diagnosis are Hyperkalemia, pancreatitis. - Bed requested for Telemetry/MedSurg (Inpatient). - Status is Inpatient Admission. kr2 - Condition is Stable. - Problem is new. - Symptoms have improved. UTI on Admission? No Addendum: 12/12/2017 20:03 Co-signature as Attending Physician, Elkin Roberson MD I agree with the assessment and w a plan of care. Signatures: Dispatcher [employer] Alma Rosa Ashford RN RN Meggan Lofton RN RN Reina Mitchell, SOFTWARE DEVELOPMENT INTERN-C SOFTWARE DEVELOPMENT INTERN-Csnw Janie Johnson RN RN Elkin Roberson MD MD wa Reaves, Karey, RN RN kr2 Amelia Reyes RN kr2 Corrections: (The following items were deleted from the chart) 12/10 16:40 16:37 Constitutional: This is a well developed, well nourished patient who is awake, snw alert, and in no acute distress. Head/Face: Normocephalic, atraumatic. Eyes: Pupils equal round and reactive to light, extra-ocular motions intact. Lids and lashes normal. Conjunctiva and sclera are non-icteric and not injected. Cornea within normal limits. Periorbital areas with no swelling, redness, or edema. ENT: Nares patent. No nasal discharge, no septal abnormalities noted. Tympanic membranes are normal and external auditory canals are clear. Oropharynx with no redness, swelling, or masses, exudates, or evidence of obstruction, uvula midline. Mucous membranes moist. Neck: Trachea midline, no thyromegaly or masses palpated, and no cervical lymphadenopathy. Supple, full range of motion without nuchal rigidity, or vertebral point tenderness. No Meningismus. Chest/axilla: Normal chest wall appearance and motion. Nontender with no deformity. No lesions are appreciated. Cardiovascular: Regular rate and rhythm with a normal S1 and S2. No gallops, murmurs, or rubs. Normal PMI, no JVD. No pulse deficits. Respiratory: Lungs have equal breath sounds bilaterally, clear to auscultation and percussion. No rales, rhonchi or wheezes noted. No increased work of breathing, no retractions or nasal flaring. Abdomen/GI: Soft, non-tender, with normal bowel sounds. No distension or tympany. No guarding or rebound. No evidence of tenderness throughout. Back: No spinal tenderness. No costovertebral tenderness. Full range of motion. Skin: Warm, dry with normal turgor. Normal color with no rashes, no lesions, and no evidence of cellulitis. Neuro: Awake and alert, GCS 15, oriented to person, place, time, and situation. Cranial nerves II-XII grossly intact. Motor strength 5/5 in all extremities. Sensory grossly intact. Cerebellar exam normal. Normal gait. Psych: Awake, alert, with orientation to person, place and time. Behavior, mood, and affect are within normal limits. snw 16:53 16:51 Misc. Order ordered. sn snw 19:43 19:13 Hospitalization Ordered by Cely Snow MD for Inpatient Admission. Preliminary mw diagnosis is Hyperkalemia; pancreatitis. Bed requested for Telemetry/MedSurg (Inpatient). Status is Inpatient Admission. Condition is Stable. Problem is new. Symptoms have improved. UTI on Admission? No. wa 22:01 19:43 12/10/2017 19:13 Hospitalization Ordered by Cely Snow MD for Inpatient kr2 Admission. Preliminary diagnosis is Hyperkalemia; pancreatitis. Bed requested for Telemetry/MedSurg (Inpatient). Status is Inpatient Admission. Condition is Stable. Problem is new. Symptoms have improved. UTI on Admission? No. mw 22:02 22:01 12/10/2017 19:13 Hospitalization Ordered by Cely Snow MD for Inpatient kr2 Admission. Preliminary diagnosis is Hyperkalemia; pancreatitis. Bed requested for Telemetry/MedSurg (Inpatient). Status is Inpatient Admission. Condition is Stable. Problem is new. Symptoms have improved. UTI on Admission? No. kr2
--- NOTE | 2017-12-10 19:14 | ER ---
Nurse's Notes [facility] Name: Nayla Greenberg Age: 82 yrs Sex: Male : 1935 Arrival Date: 12/10/2017 Time: 16:16 Bed 30 Private MD: Diagnosis: Hyperkalemia;pancreatitis Presentation: 12/10 16:17 Presenting complaint: EMS states: " Pt's called EMS for increased swelling of ph lower extremities, robbie legs and robbie lower arms noted to be swollen, breath sounds diminished in bases, pt denies pain or SOB, was admitted recently for renal failure and received emergent dialysis then left AMA.". Transition of care: patient was not received from another setting of care. Onset of symptoms was December 10, 2017. Risk Assessment: Do you want to hurt yourself or someone else? Patient reports no desire to harm self or others. Initial Sepsis Screen: Does the patient meet any 2 criteria? No. Patient's initial sepsis screen is negative. Does the patient have a suspected source of infection? No. Patient's initial sepsis screen is negative. Care prior to arrival: None. 16:17 Method Of Arrival: EMS: [facility] 16:17 Acuity: KAROL 3 ph Historical: - Allergies: 16:21 adhesive tape-silicones; ph - Home Meds: 16:28 amlodipine 10 mg tab 1 tab once daily [Active]; gabapentin 300 mg Oral cap 1 cap at kr2 bedtime [Active]; Lasix 40 mg Oral tab once daily [Active]; Lipitor Oral [Active]; metformin 1,000 mg Oral tab 2 times per day [Active]; metoprolol tartrate 25 mg Oral tab 0.5 tab 2 times per day [Active]; multivitamin Oral daily [Active]; Vitamin D Oral 400 unit daily [Active]; - PMHx: 16:21 Diabetes - NIDDM; Hyperlipidemia; Hypertension; muscle atrophy; paralysis; renal ph failure; - Immunization history:: Adult Immunizations unknown. - Social history:: Smoking status: Patient/guardian denies using tobacco. - Ebola Screening: : No symptoms or risks identified at this time. Screenin:26 Abuse screen: Denies threats or abuse. Denies injuries from another. Nutritional kr2 screening: No deficits noted. Tuberculosis screening: No symptoms or risk factors identified. Fall Risk Gait- Impaired (20 pts.). Assessment: 16:22 General: Appears in no apparent distress. comfortable, obese, Behavior is calm, kr2 cooperative, appropriate for age. Pain: Denies pain. Neuro: Level of Consciousness is awake, alert, obeys commands, Oriented to person, place, time, situation, Appropriate for age. Cardiovascular: Heart tones S1 S2 Patient's skin is warm and dry. Rhythm is sinus bradycardia. Cardiovascular: Edema is 2+ to bilateral upper extremities Chest pain is denied. Respiratory: Airway is patent Respiratory effort is even, unlabored, Respiratory pattern is regular, symmetrical, Breath sounds are diminished bilaterally. GI: Abdomen is non-distended, obese. EENT: Oral mucosa is moist. Derm: Skin is fragile, with poor turgor Skin is pink, warm \\T\\ dry. Wound noted left supraclavicular area, bilateral upper arms Wound is reportedly "from oxygen tubing during last hospitalization" Eschar noted. Small skin tears to bilateral upper extremities. Musculoskeletal: Circulation, motion, and sensation intact. 17:28 Reassessment: Patient appears in no apparent distress at this time. Patient and/or kr2 family updated on plan of care and expected duration. Pain level reassessed. Patient is alert, oriented x 3, equal unlabored respirations, skin warm/dry/pink. Patient denies pain at this time. 18:30 Reassessment: Patient appears in no apparent distress at this time. Patient and/or kr2 family updated on plan of care and expected duration. Pain level reassessed. Patient is alert, oriented x 3, equal unlabored respirations, skin warm/dry/pink. Patient denies pain at this time. 19:26 Reassessment: Patient appears in no apparent distress at this time. Patient and/or kr2 family updated on plan of care and expected duration. Pain level reassessed. Patient is alert, oriented x 3, equal unlabored respirations, skin warm/dry/pink. Patient denies pain at this time. 20:30 Reassessment: Patient appears in no apparent distress at this time. Patient and/or kr2 family updated on plan of care and expected duration. Pain level reassessed. Patient is alert, oriented x 3, equal unlabored respirations, skin warm/dry/pink. Patient denies pain at this time. 21:39 Reassessment: Patient appears in no apparent distress at this time. Patient and/or kr2 family updated on plan of care and expected duration. Pain level reassessed. Patient is alert, oriented x 3, equal unlabored respirations, skin warm/dry/pink. Attempted to call report to receiving nurse, held for 4 minutes Patient denies pain at this time. Vital Signs: 16:21 Weight 101.15 kg; Height 5 ft. 8 in. (172.72 cm); Pain 0/10; ph 16:21 BP 113 / 53; Pulse 61; Resp 19; Temp 98.4; Pulse Ox 99% on R/A; Pain 0/10; kr2 17:27 BP 107 / 55; Pulse 58; Resp 18; Pulse Ox 98% on R/A; kr2 18:37 BP 116 / 56; Pulse 59; Resp 19; Pulse Ox 100% on R/A; kr2 19:27 BP 103 / 77; Pulse 67; Resp 17; Pulse Ox 100% on R/A; kr2 20:58 BP 109 / 81; Pulse 64; Resp 18; Pulse Ox 100% on R/A; jb5 22:00 BP 113 / 78; Pulse 60; Resp 19; Pulse Ox 99% on R/A; kr2 16:21 Body Mass Index 33.91 (101.15 kg, 172.72 cm) ph ED Course: 16:16 Patient arrived in ED. ph 16:19 Triage completed. ph 16:21 Amelia Reyes, RN is Primary Nurse. kr2 16:22 Arm band placed on. ph 16:26 Patient has correct armband on for positive identification. Bed in low position. Call kr2 light in reach. Side rails up X2. laboratory monitor on. Pulse ox on. NIBP on. Door closed. Pillow given. Head of bed elevated. 16:36 Reina Mitchell FNP-C is PHCP. snw 16:36 Elkin Roberson MD is Attending Physician. snw 16:43 X-ray completed. Portable x-ray completed in exam room. Patient tolerated procedure kp1 well. 16:44 Chest Single View XRAY In Process Unspecified. EDMS 16:52 Notified Nurse Practitioner and/or Physician Bookkeeping Clerks Supervisor of blood glucose 64. kr2 16:52 First set of blood cultures drawn by me. Inserted saline lock: 22 gauge in right wrist, kr2 using aseptic technique. Blood collected. 17:08 Second set of blood cultures drawn by me. kr2 17:52 EKG done, by ED staff, reviewed by Reina FERNANDEZ. kr2 18:30 Jernigan cath inserted, using sterile technique, 16 Fr., by in, balloon inflated, to kr2 gravity drainage, urine specimen collected. returned clear yellow urine. Patient tolerated well. 18:39 Notified Nurse Practitioner and/or Physician Bookkeeping Clerks Supervisor of a critical lab result(s), 6.2 hb potassium. 19:12 Cely Snow MD is Hospitalizing Provider. wa 19:52 Notified ED physician of other Repeat blood glucose 294. kr2 20:04 Repeat lab(s) drawn. by in, sent to lab. kr2 21:52 No provider procedures requiring assistance completed. Patient admitted, IV remains in kr2 place. Administered Medications: 17:03 Drug: D50W 50 ml Route: IVP; Site: right wrist; 17:51 Follow up: Response: No adverse reaction; No adverse reaction, blood glucose up to 159 kr2 18:47 Drug: Rocephin 1 grams Route: IV; Rate: calculated rate; Site: right wrist; kr2 18:55 Follow up: Response: No adverse reaction; IV Status: Completed infusion kr2 19:08 Drug: D50W 50 ml Route: IVP; Site: right wrist; kr2 20:06 Follow up: Response: No adverse reaction kr2 19:10 Drug: Insulin Regular Human 10 units {Co-Signature: kr2 (Amelia Reyes RN).} Route: IVP; Site: right wrist; 20:06 Follow up: Response: No adverse reaction kr2 19:22 Drug: D50W 50 ml Route: IVP; Site: right wrist; kr2 20:07 Follow up: Response: No adverse reaction kr2 Point of Care Testing: Blood Glucose: 16:52 Blood Glucose: 64 mg/dL; kr2 17:53 Blood Glucose: 159 mg/dL; kr2 19:51 Blood Glucose: 294 mg/dL; kr2 20:57 Blood Glucose: 249 mg/dL; jb5 Ranges: Outcome: 19:13 Decision to Hospitalize by Provider. wa 21:52 Admitted to Tele accompanied by [facility], via stretcher, room 414, with chart, Report kr2 called to Eva, RN 21:52 Condition: stable 21:52 Instructed on the need for admit, Demonstrated understanding of instructions. 22:02 Patient left the ED. kr2 Signatures: Dispatcher [employer] EDAlma Rosa Perez, RN RN Reina Reddy, PRODUCE CLERK-C PRODUCE CLERK-Csnw Janie Johnson RN RN Sharyn Hernandez RN RN Yasmin Hadley jb5 Mikayla Rodriguez kp1 Elkin Roberson MD MD wa Reaves, Karey, RN RN kr2 Amelia Reyes RN kr2 Corrections: (The following items were deleted from the chart) 20:09 19:52 Notified ED physician of other Repeat blood glucose 259 kr2 kr2 21:40 21:39 Reassessment: Patient appears in no apparent distress at this time. Patient kr2 and/or family updated on plan of care and expected duration. Pain level reassessed. Patient is alert, oriented x 3, equal unlabored respirations, skin warm/dry/pink. Patient denies pain at this time. kr2
[2017-12-10 20:31] LABS: Potassium 5.5 mmol/L (3.5-5.1)
[2017-12-10] MEDS ORDERED: ONDANSETRON 4 MG/2 ML VIAL IV PRN (21:01)
[2017-12-10] MEDS ORDERED: MORPHINE 2 MG/ML SYR IV PRN (21:01)
[2017-12-10] MEDS ORDERED: ACETAMINOPHEN 500 MG TAB PO PRN (21:01)
[2017-12-10] MEDS ORDERED: NA CHLORIDE 0.9% 1,000 ML IV SCH (22:00)
[2017-12-11] MEDS ORDERED: ALBUMIN HUMAN 25% 100 ML IV ONE (04:57)
[2017-12-11] MEDS ORDERED: FUROSEMIDE 20 MG/ 2ML VIAL IV ONE (04:58)
[2017-12-11] MEDS: NA CHLORIDE 0.9% 1,000 ML IV SCH ×3 (05:17→17:28)
[2017-12-11] MEDS ORDERED: MORPHINE 4 MG/ML SYR IV PRN (07:02)
--- NOTE | 2017-12-11 07:06 | P.HP ---
Certification for Inpatient Patient admitted to: Inpatient With expected LOS: >2 Midnights Patient will require the following post-hospital care: None Practitioner: I am a practitioner with admitting privileges, knowledge of patient current condition, hospital course, and medical plan of care. Services: Services provided to patient in accordance with Admission requirements found in Title 42 Section 412.3 of the Code of Federal Regulations Patient History Date of Service: 12/10/17 Reason for admission: Anasarca with bilateral upper extremity swelling History of Present Illness: Patient is an 82-year-old gentleman who came into the emergency room with anasarca. Patient has swelling in the upper and lower extremity. Patient's left upper extremity is swollen more so than the Right side. Patient has minimal lower extremity edema at this time. Patient was recently [facility] [place] [facility] [place] but was upset at his diet and left against medical advice. Patient has not been feeling well and started having abdominal pain. Patient had intractable nausea and vomiting. Patient was seen in our emergency room and his labs revealed an elevated lipase level. Patient has significant edema of the left upper extremity as well. Patient will be admitted to the hospital for anasarca and acute pancreatitis. a Doppler of the left upper extremity will also be ordered. Patient will need possible placement at a [place] [facility] facility or a rehab. Allergies adhesive tape Adverse Reaction (Intermediate, Verified 07/04/16 15:25) Rash adhesive tape- Allergy (Uncoded 12/10/17 22:06) Unknown No Allergy (Uncoded 07/09/17 23:14) Unknown No Known Allergies Allergy (Uncoded 09/09/17 21:28) Unknown Home Medications: Metoprolol Tartrate [Lopressor*] 12.5 mg PO BID 05/02/15 Multivitamin [Multivitamins] 1 each PO DAILY 07/05/15 Cholecalciferol (Vitamin D3) [Vitamin D 400 IU TAB*] 1,200 unit PO DAILY Furosemide [Lasix] 40 mg PO DAILY 07/04/16 Gabapentin [Gralise] 300 mg PO BEDTIME 07/04/16 Metformin HCl [Glucophage] 1,000 mg PO BID 07/04/16 Amlodipine [Norvasc*] 10 mg PO DAILY #30 tab 07/06/16 Atorvastatin Calcium [Lipitor] 20 mg PO BEDTIME 12/11/17 - Past Medical/Surgical History Has patient received pneumonia vaccine in the past: No Diabetic: Yes -: Hyperlipidemia -: HTN -: NIDDM -: bladder infection -: prostate problem -: Myasthenia gravis -: Peripheral neuropathy -: Stan cataracts -: broken leg 2006 -: finger surgery -: prostate surgery - Family History Father Medical History: Heart disease Mother Medical History: Hypertension Sister Medical History: Hypertension, Diabetes, Cancer, Kidney disease Brother Medical History: Heart disease, Cancer - Social History Smoking Status: Never smoker Alcohol use: No CD- Drugs: No Caffeine use: Yes Place of Residence: Home Review of Systems 10-point ROS is otherwise unremarkable Physical Examination - Vital Signs Temperature: 96.1 F Blood Pressure: 136/65 Pulse: 56 Respirations: 16 Pulse Ox (%): 100 - Physical Exam General: Alert, In no apparent distress, Oriented x2 HEENT: Atraumatic, PERRLA, Mucous membr. moist/pink, EOMI, Sclerae nonicteric Neck: Supple, 2+ carotid pulse no bruit, No LAD, Without JVD or thyroid abnormality Respiratory: Diminished, Crackles/rales Cardiovascular: Regular rate/rhythm, Normal S1 S2, Systolic murmur Gastrointestinal: Normal bowel sounds, Soft and benign, Non-distended, No tenderness Musculoskeletal: No tenderness, Swelling ( mainly of the upper extremity) Integumentary: No rashes Neurological: Normal speech, Normal tone, Sensation intact, Cranial nerves 3-12 intact, Normal affect, Abnormal gait, Abnormal strength Lymphatics: No axilla or inguinal lymphadenopathy - Studies Laboratory Data (last 24 hrs) 12/10/17 16:52: PT 12.4, INR 1.05, APTT 31.2 12/10/17 16:52: WBC 9.9, Hgb 9.9 L, Hct 29.2 L, Plt Count 596 H 12/10/17 16:52: Sodium 137, Potassium 6.2 H*, BUN 66 H, Creatinine 2.90 H, Glucose 65 L, Total Bilirubin 0.2, AST 31, ALT 34, Alkaline Phosphatase 205 H, Amylase 107, Lipase 1093 H Assessment & Plan - Problems (Diagnosis) (1) Anasarca Current Visit: Yes Status: Acute (2) Dyspnea Onset Date: 07/05/16 Current Visit: No Status: Acute (3) Diabetes Onset Date: 09/10/17 Current Visit: No Status: Chronic Qualifiers: Diabetes mellitus type: type 2 Diabetes mellitus termite helper insulin use: without termite helper use Diabetes mellitus complication status: with unspecified complications Qualified Code(s): E11.8 - Type 2 diabetes mellitus with unspecified complications (4) HTN (hypertension) Onset Date: 09/10/17 Current Visit: No Status: Chronic Qualifiers: Hypertension type: essential hypertension Qualified Code(s): I10 - Essential (primary) hypertension (5) Acute pancreatitis Current Visit: Yes Status: Acute (6) Thrombosis of left upper extremity Current Visit: Yes Status: Acute (7) Cholelithiasis Current Visit: Yes Status: Acute - Plan plan: 1. Gentle hydration 2. pain control as needed 3. Doppler of the left upper extremity 4. Anticoagulation 5. physical therapy evaluation 6. albumin and may give a low-dose Lasix 7. GI consultation 8. Nephrology consultation 9. GI prophylaxis - Advance Directives Does patient have a Living Will: No Does patient have a Durable POA for Healthcare: Yes
[2017-12-11 08:26] LABS: Absolute Lymphocytes (CBC) 1.4 K/uL (0.7-4.9); Absolute Monocytes 0.8 K/uL (0.1-1.3); Absolute Neutrophil 5.1 K/uL (1.8-8.0); Basophils % 2.1 % (0-1.3); Eosinophils % 11.5 % (0-4.4); Hematocrit 29.7 % (39.6-49.0); Lymphocytes % 16.2 % (15.3-44.8); MCH 29.3 pg (27.0-35.0); MCV 86.8 fL (80-100); MPV 7.4 fL (7.6-11.3); Monocytes % 9.8 % (3.3-12.3); RBC Red Blood Cell Count 3.43 M/uL (4.33-5.43)
[2017-12-11] MEDS ORDERED: APIXABAN 5 MG TABLET PO SCH (09:00)
[2017-12-11 09:01] LABS: Albumin 2.8 g/dL (3.4-5.0); Bilirubin Total 0.3 mg/dL (0.2-1.0); Potassium 5.2 mmol/L (3.5-5.1); Protein, Total 6.7 g/dL (6.4-8.2)
--- NOTE | 2017-12-11 09:28 | RAD REPORT ---
EXAM DESCRIPTION: US - Renal Ultrasound-Complete - 12/11/2017 8:41 am CLINICAL HISTORY: . Acute renal insufficiency. Chronic renal disease COMPARISON: June 2017 FINDINGS: The right kidney measures 10 cm with a mildly increased echotexture The left kidney measures 9 cm with a mildly increased echotexture Hydronephrosis is not seen. Evaluation the bladder was limited as the patient has a Jernigan catheter in place IMPRESSION: Mildly increased renal echotexture consistent with parenchymal disease
--- NOTE | 2017-12-11 10:07 | RAD REPORT ---
EXAM DESCRIPTION: VASExtremity Venous Uni Ltd12/11/2017 8:55 am CLINICAL HISTORY: Left arm swelling COMPARISON: 2014 FINDINGS: The left internal jugular, left subclavian, left cephalic, left axillary, left brachial, l eft basilic, left ulnar and left radial veins are generally compressible and demonstrate augmentation . Doppler demonstrates good flow. Chronic reversal of flow within the left subclavian vein is present. IMPRESSION: No evidence of thrombus within the veins of the left upper extremity
[2017-12-11] MEDS ORDERED: SOD POLYSTYREN SUL 15 GM/60 ML UCUP PO ONE (12:34)
--- NOTE | 2017-12-11 13:54 | EKG ---
Test Date: 2017-12-10 Test Time: 17:44:19 Leather Grainer: SAY MEASUREMENT RESULTS: Intervals: Rate: 61 NC: 174 QRSD: 94 QT: 428 QTc: 430 Cuero: P: 49 NC: 174 QRS: 18 T: 71 INTERPRETIVE STATEMENTS: Normal sinus rhythm Normal ECG Compared to ECG 11/18/2017 02:09:57 Sinus bradycardia no longer present Right bundle-branch block no longer present Electronically Signed On 12-11-17 13:52:07 CDT by Loyd Guy
--- NOTE | 2017-12-11 15:33 | CON ---
Date of Consultation: 12/11/2017 Reason: Wound to left neck and abdominal pain. History Of Present Illness: The patient is an 82-year-old gentleman, who was admitted through the em ergency room with anasarca and swelling in the upper and lower extremities. [facility], had a kidney biopsy done not too long ago. He has an oxygen tubing, which he says broke down in left side of his neck and caused him to have a blister and following the blister he has necr otic eschar. I was asked to evaluate that, but he also complains of some pain in the abdomen and his lipase is elevated and he has a history of gallstones, therefore I was consulted. At this time, he is sitting up in bed. He is awake, alert, no pain, no nausea, no vomiting. He is hungry. No diarrh ea or constipation. No blood in his stool. No dysuria or hematuria. No sore throat, runny nose, co ugh, headaches, or dizziness. No chest pain. Review of Systems: Otherwise unremarkable. Past Medical History: Hyperlipidemia, hypertension, type 2 diabetes, myasthenia gravis, and peripher al neuropathy. Past Surgical History: Bilateral cataract surgery, Broken leg in 2006, finger surgery and prostate s urgery. Allergies: INCLUDE ADHESIVE TAPE. Social History: He does not smoke. Does not drink alcohol. Family History: Significant for heart disease, hypertension, diabetes, and kidney disease. Physical Examination: Vital signs: Stable. He is afebrile. General: He is awake, alert, oriented x3. Head and neck: Cranial nerves 2 through 12 grossly within normal limits. No neck masses. No JVD. Throat clear. Neck is supple. Chest: Clear . Heart: S1, S2. Abdomen: Soft, nondistended, nontender. Positive bowel sounds. Extremities: There is diffuse edema present both upper and lower extremity with the left arm being s lightly bigger than the right arm and on the left supraclavicular region, there is approximately a 10 x 3 cm area of necrotic eschar. There is no surrounding erythema, warmth, or edema. Laboratory Data: Platelets are 502. H and H 10.1 and 29.7. INR is 1.05. Chemistry reviewed. His potassium is 5.2. CO2 is 19. BUN is 63, creatinine is 2.6. His lipase ws 791. His alkaline phosph atase is 192, total bilirubin is 0.3, AST is 25, and ALT is 31. He had a renal ultrasound, which krya ws parenchymal disease and he had a CT scan back in June, which showed gallstones. Assessment: An 82-year-old gentleman with the gallstones, comes in with anasarca, renal insufficienc y, and pancreatitis possibly. Clinically, he does not have acute pancreatitis as he has no tendernes s, no nausea, or vomiting at this time. It may be a reflection of his renal insufficiency. He does have gallstones, but he does not have any symptoms for that yet. He has multiple other medical issue s present As far as the eschar is concerned, we will just treat it with collagenase for the time krissy samayoa to soften it up and can be debrided as an outpatient. If he is medically stabilized, we will do it in-house. As far as his gallbladder issues are concerned, I do not think gallstones causing the pro blem. I think we have to look for other reasons for his lipase to be elevated. Clinically, he does not appear to have pancreatitis. We will follow this patient while in the hospital. No need for any urgent surgical intervention at this time. AUBRIE/MODL Voice ID: [id number] Report ID: [id number]
[2017-12-11] MEDS: ENOXAPARIN 30 MG/0.3 ML SQ SCH (17:26)
--- NOTE | 2017-12-11 18:24 | PN ---
Date of Progress Note: 12/11/2017 Subjective: The patient seen and examined, chart reviewed, and case discussed with RN and Dr. Hickman. The patient denies any abdominal pain, some nausea, but no vomiting. Wants to eat. Review of Systems: Negative except as per HPI. Medications: List reviewed. Objective: Vital signs: Temperature 97.7, heart rate 60, blood pressure 135/63, respirations 16, an d O2 saturation 99% on room air. General: Awake, alert, oriented x3, in some mild distress. Elderly male, obese, BMI 33. CV: S1, S2. Regular rate and rhythm. Peripheral pulses present. Respiratory: Moving air well bilaterally. No wheezing. No stridor. Gastrointestinal: Abdomen is soft, nontender, nondistended. Positive bowel sounds. No guarding or rigidity. Extremities: No clubbing, cyanosis, or edema. Neurologic: Nonfocal. Laboratory Data: Sodium 136, potassium 5.5, chloride 107, CO2 16, BUN 66, creatinine 2.9, glucose 22 6, lactate 3.9, and calcium is 8. WBC 8.4, H and H 10.1 and 29.7, and platelets 502. Lipase 791. E xtremity venous Doppler shows no evidence of thrombus within the veins of the left upper extremity. Renal ultrasound shows mildly increased renal echotexture, consistent with parenchymal disease. Assessment And Plan: An 82-year-old male with; 1.Anasarca. We will continue with diuresis. Left upper extremity swelling worse than right. Doppl er sono is negative for deep venous thrombosis. 2.Dyspnea, improving. 3.Diabetes mellitus type 2 without long-term use of insulin with hyperglycemia. We will continue sl iding scale insulin. Continue Accu-Chek. 4.Essential hypertension. Resume home medications as appropriate. 5.Acute pancreatitis. Lipase level is improving. We will advance diet. No further nausea or vomit ing. GI has been consulted. 6.Thrombosis of the left upper extremity, started on apixaban. 7.Cholelithiasis. No intervention planned by Dr. Hickman. 8.Gastrointestinal and deep venous thrombosis prophylaxis, addressed. SA/MODL Voice ID: [id number] Report ID: [id number]
[2017-12-11] MEDS: COLLAGENASE 30 GM OINTMENT TOP SCH (20:40)
[2017-12-11] MEDS: SODIUM BICARB 325 MG TAB PO SCH (22:20)
[2017-12-11] MEDS: METOPROLOL TAR 25 MG TAB PO SCH (22:20)
[2017-12-11] MEDS: ATORVASTATIN 20 MG TAB PO SCH (22:21)
[2017-12-11] MEDS: GABAPENTIN 300 MG CAP PO SCH (22:21)
[2017-12-12 02:26] LABS: Urine Protein/Creatinine Ratio 10.04 ratio (<0.15)
--- NOTE | 2017-12-12 03:16 | CON ---
Date of Consultation: 12/11/2017 Chief Complaint: Elevated BUN and creatinine, hyperkalemia, metabolic acidosis. History Of Present Illness: Nephrology consultation was requested for abnormal electrolytes and acute on chronic kidney injury. The patient was admitted to the hospital and was found to have severe hyperkalemia, potassium was 6.2. The patient was found to have acute on chronic kidney injury. BUN was 66 and creatinine 2.9. The patient has nonoliguric urine output. Renal function has not improved significantly over the last 24 hours. The patient was treated for hyperkalemia. Potassium improved to 5.2. The patient has non-anion gap metabolic acidosis, hyperchloremic, chloride is 110, sodium 140, and bicarbonate 19. Review of previous lab work obtained in August 2017 showed creatinine 1.1. The patient has previous history of acute kidney injury back in August 2017. Creatinine was elevated up to 2.07. Subsequently, acute kidney injury resolved and creatinine improved to baseline. On September 12, creatinine was 0.97. The patient was found to have severe acute kidney injury. On November 18, creatinine was up to 4.60. The patient is an 82-year-old man who came to the emergency room because of shortness of breath, anasarca, progressively worse legs edema in upper and lower extremities. The patient was complaining of swelling mostly in the left upper extremity more than in the right upper extremity. He has slight lower extremity edema. He was feeling weak and was complaining of abdominal pain, intractable nausea and vomiting. The patient was found to have acute pancreatitis and anasarca. He is admitted to the hospital for acute kidney injury with hyperkalemia. Prior to this admission, the patient was treated with metformin, received furosemide. He was treated for hypertension and had metoprolol and amlodipine. Review of Systems: Constitutional: Complains of generalized weakness. Eyes: Denies vision changes. Ears, Nose, Mouth, and Throat: Denies sore throat or earache. Respiratory: Denies PND or orthopnea. Cardiovascular: Denies chest pain or palpitation. GI: Has some abdominal pain, nausea, vomiting. Denies melena or hematemesis. Neurologic: Denies slow rate speech or tremor. All other systems reviewed and all are negative. Past Medical History: Hypertension, pjf-vleewbx-rwycwljbt diabetes mellitus, history of urinary tract infection, prostate enlargement, myasthenia gravis, peripheral vascular disease, bilateral cataracts, leg fracture, finger surgery, prostate surgery, hyperlipidemia. Family History: Heart disease in his father. Hypertension in his mother. Sister had hypertension, diabetes, cancer, and kidney disease. Social History: Denies tobacco, alcohol, or illicit drugs. Physical Examination: General: The patient is awake, alert Eyes: Anicteric sclerae. EOMI. Ears, Nose, Mouth and Throat: Oral mucosa moist. No pallor. Neck: Supple. No JVD. No bruits. Lungs: Clear to auscultation bilaterally. Abdomen: Generalized tenderness. No rebound, no guarding. Extremities: Edema present in upper and lower extremities. SKIN: warm and dry , no skin rashes NEUROLOGIC: alert x3 , no tremor PSYCHIATRIC: normal affect , alert, oriented Laboratory Data: Sodium 137, potassium 6.2, BUN 66, creatinine 2.90, glucose 65 , total bilirubin 0.2, AP 205, amylase 107, lipase 1093. Assessment And Plan: 1. Anasarca, acute, likely secondary to some fluid overload with history of hypoalbuminemia. Continue low-sodium diet and diuretic as needed. 2. Diabetes mellitus. The patient is not a candidate for metformin. Continue insulin. Monitor blood glucose closely. The patient was found to have borderline hypoglycemia. The patient may need IV fluids with dextrose to control hypoglycemia. 3. Acute pancreatitis, pending workup to rule out biliary pathology. 4. The patient is on liquid diet. Monitor potassium intake. 5. Hyperkalemia. The patient will have Kayexalate with retention as needed. The patient has acute on chronic kidney injury, nonoliguric. Continue IV fluids for mild hydration. 6. Extremity edema. The patient was found to have deep venous thrombosis. Further workup per primary team. 7. Acute kidney injury due to prerenal azotemia, acute tubular necrosis. Continue IV fluids to prevent renal hypoperfusion, avoid TREVIN inhibitor, and monitor fluid balance and urine output. 8. Renal ultrasound was ordered to evaluate kidney size and the patient was found to have mildly increased renal echotexture without hydronephrosis.Patient has chronic kidney disease , baseline renal function likely has worsened . NICANOR/DIEUDONNE Voice ID: [id number] Report ID: [id number] SHANNAN
[2017-12-12 05:30] VITALS: BMI 34.2
[2017-12-12 08:03] LABS: Potassium 4.7 mmol/L (3.5-5.1)
[2017-12-12] MEDS: COLLAGENASE 30 GM OINTMENT TOP SCH (08:55)
[2017-12-12] MEDS: METOPROLOL TAR 25 MG TAB PO SCH ×2 (08:56→20:08)
[2017-12-12] MEDS: AMLODIPINE 10 MG TAB PO SCH (08:56)
[2017-12-12] MEDS: SODIUM BICARB 325 MG TAB PO SCH ×2 (08:57→20:09)
[2017-12-12] MEDS: FUROSEMIDE 40 MG TABLET PO SCH (08:57)
[2017-12-12] MEDS: NA CHLORIDE 0.9% 1,000 ML IV SCH (09:49)
--- NOTE | 2017-12-12 12:28 | PN ---
Date of Progress Note: 12/12/2017 Subjective: The patient is awake, alert. No abdominal pain. Tolerating diet. Objective: Vital signs: Stable, afebrile. Abdomen: Benign. Laboratory Data: Reviewed. Assessment: Cholelithiasis, doubt cholecystitis at this time. Recommendations: Medical management. Wound care is ordered for the left neck wound. follow up in [facility] for outpatient debridement. No need for any urgent surgical intervention at this time. AUBRIE/DIEUDONNE Voice ID: [id number] Report ID: [id number]
--- NOTE | 2017-12-12 16:23 | PN ---
Date of Progress Note: 12/12/2017 Subjective: The patient seen and examined, chart reviewed, and case discussed with RN and Dr. Hickman. No abdominal pain. The patient tolerating diet. Still has some edema. Review of Systems: Negative except as above. Medications: List reviewed. Objective: Vital signs: Temperature 97.7, heart rate 72, blood pressure 172/77 , respirations 18, and O2 100% on room air. General: Awake, alert, oriented x3, not in any acute distress. Elderly male, obese, BMI 34.2. CV: S1, S2. No murmurs. Peripheral pulses present. Respiratory: Moving air well bilaterally. No wheezing. Gastrointestinal: Abdomen is soft, nontender, nondistended. Positive bowel sounds. Extremities: No clubbing, cyanosis. The patient has anasarca with edema in all 4 extremities. Neurologic: Nonfocal. Laboratory Data: Sodium 142, potassium 4.7, chloride 113, CO2 18, BUN 51, creatinine 2.20, glucose 130, and calcium 7.9. Blood cultures, no growth to date. Assessment: An 82-year-old male with; 1. Diffuse anasarca. We will continue diuresis. Monitor inputs and outputs, daily weights, likely secondary to kidney dysfunction. 2. Acute dyspnea, resolved. The patient now saturating well on room air. 3. Diabetes mellitus type 2, without long-term use of insulin with hyperglycemia. Continue sliding scale. Continue Accu-Cheks. 4. Essential hypertension, stable. 5. Acute pancreatitis. No abdominal pain. Clinically resolved. The patient tolerating diet. Lipase level is 718, trending down. GI on board. 6. Cholelithiasis. No surgery planned at this point. The patient is asymptomatic. Will need to follow up outpatient with Dr. Hickman. 7. Gastrointestinal and deep venous thrombosis prophylaxis, addressed. No thrombosis of the left upper extremity. Doppler sono was negative. Apixaban has been stopped. We will continue with gastrointestinal and deep venous thrombosis prophylaxis. 8. Hyperkalemia, corrected. 9. Necrotic eschar on left lateral neck/shoulder: Outpt f/up w Dr. Hickman for debridement. Plan: 1. Discharge planning. 2. Disposition: May need to go back to rehab. SA/MODL Voice ID: [id number] Report ID: [id number] MTDD
[2017-12-12] MEDS: ENOXAPARIN 30 MG/0.3 ML SQ SCH (16:59)
[2017-12-12] MEDS: ALBUMIN HUMAN 25% 100 ML IV SCH (18:50)
[2017-12-12] MEDS: ATORVASTATIN 20 MG TAB PO SCH (20:09)
[2017-12-12] MEDS: GABAPENTIN 300 MG CAP PO SCH (20:09)
[2017-12-12] MEDS: FUROSEMIDE 40 MG/4 ML VIAL IV SCH (20:11)
[2017-12-13] MEDS: ALBUMIN HUMAN 25% 100 ML IV SCH ×3 (02:40→22:13)
[2017-12-13] MEDS: FUROSEMIDE 40 MG/4 ML VIAL IV SCH ×3 (03:30→23:18)
[2017-12-13 06:39] LABS: Absolute Lymphocytes (CBC) 1.5 K/uL (0.7-4.9); Absolute Monocytes 0.8 K/uL (0.1-1.3); Absolute Neutrophil 4.4 K/uL (1.8-8.0); Basophils % 2.2 % (0-1.3); Eosinophils % 12.1 % (0-4.4); Hematocrit 29.1 % (39.6-49.0); Lymphocytes % 19.3 % (15.3-44.8); MCH 29.7 pg (27.0-35.0); MCV 86.7 fL (80-100); MPV 7.3 fL (7.6-11.3); Monocytes % 10.2 % (3.3-12.3); RBC Red Blood Cell Count 3.35 M/uL (4.33-5.43)
[2017-12-13 06:53] LABS: Albumin 3.2 g/dL (3.4-5.0); Phosphorus 4.4 mg/dL (2.5-4.9); Potassium 4.2 mmol/L (3.5-5.1)
[2017-12-13 07:04] LABS: Thyroid Stimulating Hormone 3.9 uIU/mL (0.36-3.74)
[2017-12-13] MEDS: AMLODIPINE 10 MG TAB PO SCH (08:51)
[2017-12-13] MEDS: METOPROLOL TAR 25 MG TAB PO SCH ×2 (08:51→20:51)
[2017-12-13] MEDS: FUROSEMIDE 40 MG TABLET PO SCH (08:51)
[2017-12-13] MEDS: SODIUM BICARB 325 MG TAB PO SCH ×2 (08:51→20:52)
[2017-12-13] MEDS: COLLAGENASE 30 GM OINTMENT TOP SCH (08:53)
--- NOTE | 2017-12-13 10:36 | P.PN ---
Subjective Date of Service: 12/13/17 Chief Complaint: Anasarca with bilateral upper extremity swelling Subjective: Improving (Patient is doing better still a swelling of his extremities no new complaint he wants to go home) Review of Systems General: Weakness Respiratory: Shortness of Breath Cardiovascular: Edema (Edema of his extremities) Physical Examination - Vital Signs Temperature: 98.7 F Blood Pressure: 127/66 Pulse: 67 Respirations: 18 Pulse Ox (%): 100 - Physical Exam General: Alert, Oriented x3 Neck: Supple Respiratory: Clear to auscultation bilaterally Cardiovascular: Normal S1 S2, Edema (Bilateral edema) Gastrointestinal: Normal bowel sounds, Soft and benign - Studies Microbiology Data (last 24 hrs): 12/10/17 18:20 Catheterized Urine [place] Count - Final <10,000 CFU/ML. 12/10/17 18:20 Catheterized Urine - Final Assessment & Plan - Problems (Diagnosis) (1) Renal failure Current Visit: Yes Status: Acute Plan: Patient is 82 years of age admitted with anasarca kidney function is stable patient was also hyperkalemia metabolic acidosis seen by Nephrology no evidence of for DVT in his left upper arm patient's lipase was significantly elevated is not declining cultures are so far negative Dc Jernigan catheter ambulate check room air saturation chest x-rays clear Qualifiers: Chronic kidney disease stage: stage 3 (moderate)
[2017-12-13] MEDS: ENOXAPARIN 30 MG/0.3 ML SQ SCH (16:22)
[2017-12-13] MEDS ORDERED: FUROSEMIDE 40 MG/4 ML VIAL IV SCH ×2 (17:00→20:00)
[2017-12-13] MEDS: GABAPENTIN 300 MG CAP PO SCH (20:52)
[2017-12-13] MEDS: ATORVASTATIN 20 MG TAB PO SCH (20:52)
--- NOTE | 2017-12-14 02:22 | PN ---
Date of Progress Note: 12/13/2017 Subjective: The patient is slightly doing better. Still have the swelling especially on the upper e xtremity. Physical Examination: Vital Signs: Blood pressure 157/68, pulse of 74. Chest: Clear to auscultation. Heart: S1, S2. Regular. Abdomen: Soft, nontender. Extremities: +1 edema. Laboratory Data: H and H 9.9/29.1. Sodium 141, potassium 4.2, bicarb 19, BUN 43, creatinine down to 2. GFR of 32, calcium 8.2, phos 4.4. The patient had good urine output of 1000. Current Medications: The patient on its include; 1.Lasix with albumin, amlodipine. 2.Metoprolol. 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 I am going to give the patient Lasix with albumin to mobilize t he fluid and to establish better volume control. 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 Doubt to be any light chain disease as biopsy did not support. After recovery, the patient as outpatient going to be good candidate for TREVIN inhibi tor. 3.Hypertension, controlled, optimal. Continue current medication. We will consider holding on the calcium channel dixie after establish better volume and blood pressure control. 4.Pancreatitis as by primary. NILTON/DIEUDONNE Voice ID: [id number] Report ID: [id number]
[2017-12-14 07:12] LABS: Albumin 3.3 g/dL (3.4-5.0); Phosphorus 4.5 mg/dL (2.5-4.9); Potassium 3.4 mmol/L (3.5-5.1); Potassium 3.5 mmol/L (3.5-5.1)
[2017-12-14] MEDS: AMLODIPINE 10 MG TAB PO SCH (08:55)
[2017-12-14] MEDS: SODIUM BICARB 325 MG TAB PO SCH (08:55)
[2017-12-14] MEDS: METOPROLOL TAR 25 MG TAB PO SCH (08:56)
[2017-12-14] MEDS: COLLAGENASE 30 GM OINTMENT TOP SCH (08:57)
[2017-12-14] MEDS: FUROSEMIDE 40 MG TABLET PO SCH (08:58)
[2017-12-14 09:04] VITALS: O2SAT 98
--- NOTE | 2017-12-14 10:19 | P.DS ---
Admission Date: 12/10/17 Discharge Date: 12/14/17 Disposition: ROUTINE DISCHARGE Discharge Condition: FAIR Reason for Admission: Anasarca with bilateral upper extremity swelling Consultations: Nephrology - Problems (1) Renal failure Current Visit: Yes Status: Acute Qualifiers: Chronic kidney disease stage: stage 3 (moderate) Brief History of Present Illness: Patient is 82 years of age admitted with anasarca and hyperkalemia Hospital Course: Patient had an uncomplicated stay seen by Nephrology was diuresed he has nephrotic range protein urea lipase was also elevated the time of discharge doing well alert oriented x3 vital signs all stable renal function was improving room-air oxygen a lynch satisfactory renal ultrasound also done patient to follow up with Nephrology On examination is alert oriented x3 chest clear cardiovascular muscles normal extremities 1+ edema Patient's metformin to be discontinued due to lactic acid acidosis Vital Signs/Physical Exam: Temp Pulse Resp BP Pulse Ox 97.2 F 79 18 141/60 H 99 12/14/17 08:00 12/14/17 08:58 12/14/17 08:00 12/14/17 08:58 12/14/17 08:00 Laboratory Data at Discharge: WBC 7.7 K/uL (4.3-10.9) 12/13/17 06:12 Hgb 9.9 g/dL (13.6-17.9) L 12/13/17 06:12 Hct 29.1 % (39.6-49.0) L 12/13/17 06:12 Plt Count 479 K/uL (152-406) H 12/13/17 06:12 PT 12.4 SECONDS (9.5-12.5) 12/10/17 16:52 INR 1.05 12/10/17 16:52 APTT 31.2 SECONDS (24.3-36.9) 12/10/17 16:52 Sodium 139 mmol/L (136-145) 12/14/17 05:36 Potassium 3.4 mmol/L (3.5-5.1) L 12/14/17 05:36 BUN 46 mg/dL (7-18) H 12/14/17 05:36 Creatinine 2.40 mg/dL (0.55-1.3) H 12/14/17 05:36 Glucose 159 mg/dL (74-106) H 12/14/17 05:36 Phosphorus 4.5 mg/dL (2.5-4.9) 12/14/17 05:36 Total Bilirubin 0.3 mg/dL (0.2-1.0) 12/11/17 08:05 AST 25 U/L (15-37) 12/11/17 08:05 ALT 31 U/L (12-78) 12/11/17 08:05 Alkaline Phosphatase 192 U/L (45-117) H 12/11/17 08:05 Triglycerides 208 mg/dL (<150) H 12/11/17 08:05 Cholesterol 120 mg/dL (<200) 12/11/17 08:05 HDL Cholesterol 23 mg/dL (40-60) L 12/11/17 08:05 Cholesterol/HDL Ratio 5.22 12/11/17 08:05 Amylase 107 U/L (25-115) 12/10/17 16:52 Lipase 718 U/L (73-393) H 12/12/17 06:05 Home Medications: Metoprolol Tartrate [Lopressor*] 12.5 mg PO BID 05/02/15 Multivitamin [Multivitamins] 1 each PO DAILY 07/05/15 Cholecalciferol (Vitamin D3) [Vitamin D 400 IU TAB*] 1,200 unit PO DAILY Furosemide [Lasix] 40 mg PO DAILY 07/04/16 Gabapentin [Gralise] 300 mg PO BEDTIME 07/04/16 Amlodipine [Norvasc*] 10 mg PO DAILY #30 tab 07/06/16 Atorvastatin Calcium [Lipitor*] 20 mg PO BEDTIME 12/11/17
[2017-12-14 13:42] VITALS: BP 131/57; TEMP 97
--- NOTE | 2017-12-14 16:26 | PN ---
Date of Progress Note: 12/14/2017 Subjective: The patient doing well. No nausea. No vomiting. The patient being diuresed with album in to mobilize the fluid. Objective: Vital Signs: Blood pressure of 141/60, pulse of 79. Chest: Clear to auscultation. Heart: S1, S2. Regular. Abdomen: Soft, nontender. Extremities: No edema on the lower extremity. More on the upper bilateral, but much better than bef ore. Laboratory Data: WBC 7.7, H and H 9.9/29.1, and platelet 479. Sodium 139, potassium 3.4, bicarb 20, BUN 46, creatinine down to 2.4, GFR 26, calcium of 8. Current Medications: The patient is on includes; 1.Amlodipine. 2.Atorvastatin. 3.Metoprolol 12.5 b.i.d. 4.Lovenox. 5.Gabapentin 300 daily. 6.Lasix 40. 7.Sodium bicarb 650 b.i.d. 8.Zofran. 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 2.Still on anasarca side. Continue diuresis. 3.Hypertension, controlled, optimal. Continue current medication. 4.Hyperkalemia has been resolved. 5.Pancreatitis, resolved. 6.Cholelithiasis. No surgical intervention. The patient cleared from the renal standpoint for discharge planning. Follow up in the office in 2-3 weeks. PEYMAN Voice ID: [id number] Report ID: [id number]
[2017-12-14] MEDS ORDERED: glyBURIDE 2.5 MG TAB PO SCH ×2 (17:00)
== END 2017-12-14 14:52 | disposition home or self-care (01) | DRG 682 ==
LOC: ER 16:14 → 4TH 19:13
PROVIDERS: ADMIT Family Medicine; ATTEND Internal Medicine Sleep Medicine
DX: N17.9 Acute kidney failure, unspecified (principal); K85.90 Acute pancreatitis without necrosis or infection, unspecified; E87.2 Acidosis; E11.21 Type 2 diabetes mellitus with diabetic nephropathy; E11.22 Type 2 diabetes mellitus with diabetic chronic kidney disease; I12.9 Hypertensive chronic kidney disease with stage 1 through stage 4 chronic kidney disease, or unspecified chronic kidney disease; E87.5 Hyperkalemia; K80.20 Calculus of gallbladder without cholecystitis without obstruction; N18.3 Chronic kidney disease, stage 3 (moderate); E78.5 Hyperlipidemia, unspecified; G70.00 Myasthenia gravis without (acute) exacerbation; E11.65 Type 2 diabetes mellitus with hyperglycemia; L98.491 Non-pressure chronic ulcer of skin of other sites limited to breakdown of skin; Z91.048 Other nonmedicinal substance allergy status; Z79.84 Long term (current) use of oral hypoglycemic drugs; E11.42 Type 2 diabetes mellitus with diabetic polyneuropathy; E11.649 Type 2 diabetes mellitus with hypoglycemia without coma
CPT/HCPCS: 36415; 51702; 71045; 76770; 80048; 80053; 80061; 80069; 80076; 81003; 81015; 82043; 82150; 82550; 82553; 82570; 82805; 82962; 83605; 83690; 84145; 84156; 84439; 84443; 84484; 85025; 85610; 85652; 85730; 86140; 86850; 86900; 86901; 87040; 87086; 87088; 93005; 93971; 96374; 96375; 97163; 99285; J0696; J1650; J1940; J2270; J3590; J7030; P9047

== ENCOUNTER 2017-12-20 12:51 | Inpatient (IN) | payer OTHER ==
[~2017-12-20 12:51] MED LIST: THIAMINE 200 MG/2 ML INJ IVP SCH
--- OUTSIDE RECORDS SUMMARY | 2017-12-20 12:54 | XMS REPORT | Clinical Summary ---
:1935 Author Organization [facility] Address [address] [place] [address] Phone Care Team Providers Name Role Phone [...] Active (LIPITOR) 40 MG (40 mg total) tablet by mouth nightly. gabapentin Take 1 capsule 30 capsule 0 12/03/2017 12/03/2018 Active (NEURONTIN) 300 MG (300 mg total) capsule by mouth nightly. metoprolol Take 1 tablet 30 tablet 0 12/03/2017 12/03/2018 Active (LOPRESSOR) 25 MG (25 mg total) tablet by mouth 2 (two) times daily. sodium bicarbonate Take 1 tablet 30 tablet 0 12/03/2017 12/03/2018 Active 650 MG tablet (650 mg total) by mouth 2 (two) times daily. torsemide (DEMADEX) Take 1 tablet 30 tablet 0 12/04/2017 12/04/2018 Active 20 MG tablet (20 mg total) by mouth daily. traMADol (ULTRAM) 50 Take 1 tablet 30 tablet 0 12/03/2017 12/13/2017 mg tablet (50 mg total) by mouth every 6 (six) hours as needed for up to 10 days. Max Daily Amount: 200 mg Active Problems Problem Noted Date BPH (benign prostatic hyperplasia) 11/19/2017 Diabetic neuropathy (HCC) 11/19/2017 Hyperlipidemia 11/19/2017 Hyperphosphatemia 11/19/2017 Anemia of chronic disease 11/19/2017 Hyperglycemia 11/19/2017 Muscle atrophy 11/19/2017 Leukocytosis 11/19/2017 Acute exacerbation of CHF (congestive heart failure) ([facility]) 11/18/2017 Acute cystitis without hematuria 11/18/2017 Hyperkalemia 11/18/2017 Type 2 diabetes mellitus with complication, without long-term current use of insulin ([facility]) Bradycardia 11/18/2017 Shortness of breath 11/18/2017 BASSEM (acute kidney injury) ([facility]) 11/18/2017 Encounters Date Type Specialty Care Team Description 11/18/2017 - Hospital Encounter General Internal Elio Mccain BASSEM (acute kidney 12/03/2017 Medicine MD Nghia injury) ([facility]) Charles De La Torre MD 11/18/2017 Orders Only General Internal Medicine after 12/19/2016 Social History Tobacco Use Types Packs/Day Years [...] 12/22/2017 Office Visit Cardiology Richar Gallo, ALEX [address] [facility] [place] [address] Procedures Procedure Name Priority Date/Time Associated Diagnosis Comments US GUIDE, VASCULAR Routine 11/18/2017 2:43 PM BASSEM (acute kidney Results for this ACCESS CDT injury) ([facility]) procedure are in the results section. INSERT NON-TUNNEL Routine 11/18/2017 2:43 PM BASSEM (acute kidney Results for this CV CATH CDT injury) ([facility]) procedure are in the results section. after 12/19/2016 Results RHYTHM STRIP - SCAN (12/05/2017 1:41 PM)POC-Glucose meter (12/03/2017 5:13 PM) Only the most recent of62 resultswithin the time period is included. Component Value Ref Range POC-Glucose Meter 229 (H)Comment: TESTED AT [address] 70 - 110 mg/[place] [address] Specimen Performing Laboratory Blood [address] [address] CBC with platelet count + automated diff [...] - 1 % Specimen Performing Laboratory Blood [address] [address] CBC with platelet count + automated diff (12/03/2017 4:58 AM)Only the most recent of16 resultswithin the time period is included. Specimen Performing Laboratory Blood Narrative The following orders were created for panel order CBC with platelet count + automated diff. Procedure Abnormality Status --------- ------ CBC with platelet count ...[[id number]]AbnormalFinal result Please view results for these tests on the individual orders. Phosphorus (12/03/2017 4:58 AM)Only the most recent of18 resultswithin the time period is included. Component Value Ref Range Phosphorus 3.8 2.3 - 4.7 mg/dL Specimen Performing Laboratory Blood [address] [address] Magnesium (12/03/2017 4:58 AM)Only the most recent of18 resultswithin the time period is included. Component Value Ref Range Magnesium 1.7 1.6 - 2.6 mg/dL Specimen Performing Laboratory Blood [address] [address] Basic Metabolic Panel (12/03/2017 4:58 AM)Only the [...] FOR DIALYSIS PATIENTS. Specimen Performing Laboratory Blood [address] [address] Urinalysis w/Microscopic (12/02/2017 10:53 PM)Only the most recent of2 resultswithin the time period is included. Component Value Ref Range Color, UA Light Yellow Clarity, UA Clear Specific Hul[place], UA 1.007 1.001 - 1.035 pH, UA [...] Performing Laboratory Urine - Urine, Clean Catch [address] [address] Manual Differential (11/30/2017 5:31 AM)Only the most [...] Platelet Conc Adequate Specimen Performing Laboratory Blood [address] [address] Narrative Received comment: User comments: Slide comments: Calcium, Ionized (11/29/2017 6:44 AM)Only the most recent of12 resultswithin the time period is included. Component Value Ref Range Calcium, Ion 1.08 (L) 1.12 - 1.27 mmol/L pH, Blood 7.32 Specimen Performing Laboratory Blood [address] [address] Comprehensive metabolic panel (11/29/2017 6:44 AM)Only the [...] FOR DIALYSIS PATIENTS. Specimen Performing Laboratory Blood [address] [address] Hemoglobin and hematocrit (11/28/2017 5:20 PM) Component Value Ref Range Hemoglobin 9.0 (L) 13.7 - 17.5 GM/DL Hematocrit 27.6 (L) 40.1 - 51.0 % Specimen Performing Laboratory Blood - Central Venous Line [address] [address] Narrative Call [phone] Tissue Exam (11/28/2017 11:15 AM) Component Value Ref Range Case Report Surgical Pathology Report Case: [id number] Authorizing Provider:Charles De La Torre, Collected: 11/28/2017 Pauline COOMBS Ordering Location: [address] Received: 11/28/2017 1115 Service Pathologist: Bryant Rodriguez MD Specimen:Kidney, PLATINUM KIDNEY DIAGNOSIS KIDNEY, LEFT, NEEDLE BIOPSIES - ADVANCED DIABETIC GLOMERULOSCLEROSIS - NEGATIVE FOR IMMUNE MEDIATED GLOMERULONEPHRITIS - DIFFUSE INTERSTITIAL FIBROSIS AND TUBULAR ATROPHY (~70%) - MODERATE TO SEVERE ARTERIAL INTIMAL SCLEROSIS - DIFFUSE ARTERIOLAR HYALINOSIS - SEE COMMENT Signing Pathologist Direct Phone Line: [phone] COMMENT No immune mediated glomerulosclerosis is seen [...] Alexys James., Bea Harry., Amy Blackmon., Dale, A.H., Octavio, HAntoniT., Monalisa Milan., Ellie Chau, Nohemy Asencio., Gelacio Guerra, de [place] oMore., et al. Pathologic classification of diabetic nephropathy. J Am Soc Nephrol 21:556-563, 2010. The results were communicated to Dr. Holder by Dr. Rodriguez on 12/01/2017. CPT Code(s) 77529, 66932 x3, 38921, 58370 x7, 49458 CLINICAL HISTORY History as communicated by Dr. Holder: 82 year old with long standing history of DM, now presents with increase in serum creatinine and 3g proteinuria. All serologies negative SPECIMEN SOURCE [place] kidney biopsy GROSS DESCRIPTION The specimen is received in three parts all labeled with the patient's information and labeled "[place] kidney biopsy". Received in formalin are two [...] no significant glomerular, tubulointerstitial or vascular staining. [place]: negative in open glomeruli, focal weak granular [...] measuring upto 1163 nm (normal male avera wz=455 - 430 nm nm; Mari Brizuela Arch Pathol Lab Med 133; 224-232). Subendothelial , subepithelial, and mesangial/paramesangial electron-dense, immune complex- type deposits are not present. Podocyte foot proc esses are diffusely effaced with microvillous change. Specimen Performing Laboratory Tissue - Kidney [facility] [address] renal biopsy (11/28/2017 10:40 AM) Specimen Performing Laboratory GE RIS Narrative FINAL REPORT Ultrasound guided core biopsy of the left [place] kidney dated 11/28/2017 Procedure: Core biopsy of the left [place] kidney. Clinical Indication: Proteinuria Sedation: Moderate sedation [...] ultrasound guided core biopsy of the left [place] kidney was performed under usual sterile technique. Using an 18 gauge core biopsy needle, puncture was made posteriorly on the left with real time ultrasound guidance. 2 passes were performed withsufficient material for histology. Patient tolerated procedure well. Complication: None Estimated Blood Loss: None The specimen was sent to pathology. Impression: Successful ultrasound-guided core biopsy of the left [place] kidney. Signed: Davon Diallo MD Report Verified Date/Time:11/28/2017 10:42:49 Reading Location: [address] Ultrasound Reading Room Procedure Note Interface, External Ris In - 11/28/2017 12:12 PM CDT FINAL REPORT Ultrasound guided core biopsy of the left [place] kidney dated 11/28/2017 Procedure: Core biopsy of the left [place] kidney. Clinical Indication: Proteinuria Sedation: Moderate sedation [...] ultrasound guided core biopsy of the left [place] kidney was performed under usual sterile technique. Using an 18 gauge core biopsy needle, puncture was made posteriorly on the left with real time ultrasound guidance. 2 passes were performed with sufficient material for histology. Patient tolerated procedure well. Complication: None Estimated Blood Loss: None The specimen was sent to pathology. Impression: Successful ultrasound-guided core biopsy of the left [place] kidney. Signed: Davon Diallo MD Report Verified Date/Time: 11/28/2017 10:42:49 Reading Location: [address] Ultrasound Reading Room chest 1 view portable / bedside (11/27/2017 8:38 AM)Only the most recent of2 resultswithin the time period is included. Specimen Performing Laboratory RIS Narrative FINAL REPORT CLINICAL HISTORY: edema TECHNIQUE: 1 view of the chest. COMPARISON: 11/18/2017 IMPRESSION: The right central line remains in the SVC. Mild bilateral airspace opacities have decreased. Trace bilateral pleural effusions remain. The cardiomediastinal silhouette is magnified by technique. Signed: Loida Phillips MD Report Verified Date/Time:11/27/2017 08:40:13 Reading Location: [facility] Radiology Reading Room Procedure Note Interface, External [...] Report Verified Date/Time: 11/27/2017 08:40:13 Reading Location: [facility] Radiology Reading Room B-type Natriuretic Factor (BNP) (11/27/2017 6:01 AM)Only the most recent of3 resultswithin the time period is included. Component Value Ref Range BNP 109 (H) 0 - 100 pg/mL Specimen Performing Laboratory Blood - Central Venous Line [address] [address] Prothrombin time/INR (11/26/2017 5:46 AM)Only the most recent of5 resultswithin the time period is included. Component Value Ref Range Protime 15.1 (H) 11.7 - 14.7 seconds INR 1.2 <=5.9 Specimen Performing Laboratory Blood - Central Venous Line [address] [address] Narrative RECOMMENDED COUMADIN/WARFARIN INR THERAPY RANGES STANDARD [...] Screen Negative Negative Specimen Performing Laboratory Urine [address] [address] Narrative DRUGCUTOFF CONC. Cocaine 300 ng/mL Bfmufipzccr13 ng/mL Ifmmrbgvqcsdhh454 ng/mL Barbiturate 200 ng/mL Rjgukenjxbeuk60 ng/mL Fmwzfr005 ng/mL Methadone 300 ng/mL Amphetamine/ 1000 ng/mL Methamphetamine Oxycodone 300 ng/mL This assay provides an unconfirmed qualitative test result for the clinical management of patients in emergency situations. Chain of custody not maintained. Some anke-xpg-vktbwyd medications, as well as adulterants, may cause [...] Specimen Performing Laboratory Urine - Urine, Voided [address] [address] Urine Protein Electrophoresis, 24 hour (11/22/2017 11:19 [...] Specimen Performing Laboratory Urine - Urine, Voided [address] [address] Protein, 24 hour urine (11/22/2017 11:19 PM) Component Value Ref Range Protein, 24hr Urine 2992 (H) 0 - 300 mg/24hr Volume, Urine 1700 ml Protein, Urine 176 (H) 0 - 14 mg/dL Specimen Performing Laboratory Urine - Urine, Voided [address] [address] Urinalysis w/Microscopic + Reflex to Culture (11/21/2017 7:08 PM)Only the most recent of2 resultswithin the time period is included. Component Value Ref Range Color, UA Light Yellow Clarity, UA Clear Specific [place], UA 1.005 1.001 - 1.035 pH, UA [...] Specimen Performing Laboratory Urine - Urine, Voided [address] [address] Hemoglobin A1c (11/21/2017 4:08 AM)Only the most recent of2 resultswithin the time period is included. Component Value Ref Range Hemoglobin A1C 5.9 4.3 - 6.1 % Specimen Performing Laboratory Blood - Central Venous Line [address] [address] NM myocardial perfusion PET (rest and stress) (11/20/2017 12:03 PM) Specimen Performing Laboratory [place] RIS Narrative FINAL REPORT PROCEDURE:Rest/Stress MYOCARDIAL PERFUSION PET with regadenoson\\XA9\\ CPT CODE:95731 INDICATION:Chest pain, risk factors for CAD HISTORY:Cardiac [...] Extracardiac tracer distribution is normal.6. No previous [facility] study for comparison. NONINVASIVE RISK STRATIFICATION: The above findings are considered intermediate risk (1% to 3% annual mortality rate) based on the following criterion: - Mild/moderate resting left ventricular dysfunction (LVEF 35% to 49%) - Stress-induced moderate perfusion defect without LV dilation or increased lung intake (thallium-201) (JACC. 2012;59(9):857-70.) Signed: Venancio Saenz MD Report Verified Date/Time:11/20/2017 14:59:03 Reading Location: [address] Reading Room Procedure Note Interface, External Ris In - 11/20/2017 3:01 PM CDT FINAL REPORT PROCEDURE: Rest/Stress MYOCARDIAL PERFUSION PET with regadenoson\\XA9\\ CPT CODE: 70451 INDICATION: Chest pain, risk factors for CAD [...] tracer distribution is normal. 6. No previous [facility] study for comparison. NONINVASIVE RISK STRATIFICATION: The above findings are considered intermediate risk (1% to 3% annual mortality rate) based on the following criterion: - Mild/moderate resting left ventricular dysfunction (LVEF 35% to 49%) - Stress-induced moderate perfusion defect without LV dilation or increased lung intake (thallium-201) (JACC. 2012;59(9):044-07.) Signed: Venancio Saenz MD Report Verified Date/Time: 11/20/2017 14:59:03 Reading Location: [address] Reading Room Treadmill tolerance(Non-Nuclear Treadmill) (11/20/2017 11:58 [...] Laboratory Blood, Arterial - Central Venous Line [address] [address] Narrative Effective 09/27/2015: Units/Reference Range Change New: 0.5-2.2 mmol/LPrevious: 5-20 mg/dL TSH/Free T4 If Indicated (11/20/2017 4:34 AM) Component Value Ref Range TSH 1.55 0.35 - 4.94 uIU/mL Specimen Performing Laboratory Blood - Central Venous Line [address] [address] Hepatitis panel, acute (11/20/2017 4:34 AM) Component Value Ref Range Hep A IgM Nonreactive Nonreactive Hep B C IgM Nonreactive Nonreactive Hepatitis C Ab Nonreactive Nonreactive hepatitis B Surface Ag Nonreactive Nonreactive Specimen Performing Laboratory Blood - Central Venous Line [address] [address] Vitamin D, 25-Hydroxy (11/20/2017 4:34 AM) Component Value Ref Range Vitamin D 25-Hydroxy 14.3 6.6 - 49.9 ng/mL Specimen Performing Laboratory Blood - Central Venous Line [address] [address] Narrative Effective 03/05/2017: Reference Range Change New: 6.6-49.9 ng/mL Previous: 13.0-47.8 ng/mL Recommended Vitamin D Target Range: 30.0-40.0 ng/mL Complement Component C3 (11/20/2017 4:34 AM) Component Value Ref Range C3 Complement 82 82 - 193 mg/dL Specimen Performing Laboratory Blood - Central Venous Line [address] [address] Complement Component C4 (11/20/2017 4:34 AM) Component Value Ref Range C4 Complement 23 15 - 57 mg/dL Specimen Performing Laboratory Blood - Central Venous Line [address] [address] Uric acid (11/20/2017 4:34 AM) Component Value Ref Range Uric Acid 3.9 2.6 - 7.2 mg/dL Specimen Performing Laboratory Blood - Central Venous Line [address] [address] PTH, intact (11/20/2017 4:34 AM) Component Value Ref Range PTH 247.5 (H) 8.5 - 72.5 pg/mL Specimen Performing Laboratory Blood - Central Venous Line [address] [address] Creatine Kinase (CK) (11/20/2017 4:34 AM) Component Value Ref Range Total CK 97 29 - 200 U/L Specimen Performing Laboratory Blood - Central Venous Line [address] [address] TRANSFUSION SERVICE REPORT - SCAN (11/19/2017 6:01 [...] Name NAYLA GALLO Date of Study 11/19/2017 [id number] Age 82 Visit Number [id number] GenderMale Accession Number [id number] Date of 1935 [facility] Number [id number] Physician SonographAbida Jaime InterpretingDorothy Moore MD, RVSPsician RPVI Procedure Type of Study: Veins: Upper Extremities Veins, VENOUS DOPPLER ARMS, BILATERAL. Indications for Study:Edema. Patient Status:Routine. Study Location:Portable. Technical Quality:Adequate visualization. Risk Factors History of Disease + + + + !Diagnosis !Date!Comments ! + + + + !History/Risk!11/19/2017!CHF, DM, BASSEM, Leukocytosis, Muscle atrophy , ! !Factors:!!Morbid obesity! + + + + Procedure Note Interface, External Ris In - 11/20/2017 4:39 AM CDT PV LAB - Upper Extremities Veins Demographics Patient Name NAYLA GALLO Date of Study 11/19/2017 Age 82 Visit Number [id number] Gender Male Accession Number [id number] Date of 1935 Referring [facility] Room Number [id number] Physician Slat Basket Maker Esteban Jaime Interpreting JAntoni Moore MD, RVS [...] signature) Specimen Performing Laboratory Urine - Urine, [address] [address] ECG 12 lead (11/19/2017 4:03 PM)Only the most recent of2 resultswithin the time period is included. Specimen Performing Laboratory GE MUSE Narrative Ventricular Rate 90 BPM Atrial Rate 90 BPM P-R Interval 158 ms QRS Duration 96 ms Q-T Interval 472 ms QTC Calculation(Bazett) 577 ms P [place] 53 degrees R [place] 14 degrees T [place] 64 degrees Normal sinus rhythm ST & [...] 472 ms QTC Calculation(Bazett) 577 ms P [place] 53 degrees R [place] 14 degrees T [place] 64 degrees Normal sinus rhythm ST & [...] meq/L Specimen Performing Laboratory Urine - Urine, [address] [address] Narrative Reference Range: No Normals Protein, random urine (11/19/2017 3:27 PM) Component Value Ref Range Protein, Urine 94 (H) 0 - 14 mg/dL Specimen Performing Laboratory Urine - Urine, [address] [address] Creatinine, random urine (11/19/2017 3:27 PM) Component Value Ref Range Creatinine, Ur <5.0 mg/dL Specimen Performing Laboratory Urine - Urine, [address] [address] Narrative Reference Range: No Normals Troponin I (11/19/2017 3:24 PM)Only the most recent of5 resultswithin the time period is included. Component Value Ref Range Troponin I 0.06 (H) 0.00 - 0.03 ng/mL Specimen Performing Laboratory Blood [address] [address] Narrative Troponin I (TnI) levels must be [...] - 8.3 gm/dL Specimen Performing Laboratory Blood [address] [address] HIV-1 Antigen with HIV-1/2 Antibody (11/19/2017 3:21 PM) Component Value Ref Range HIV-1 Antigen with HIV 1&2 Antibody Nonreactive Nonreactive Specimen Performing Laboratory Blood - Central Venous Line [address] [address] Glomerular basement membrane antibody (11/19/2017 3:21 PM) Component Value Ref Range GBM Ab <1.0 <1.0 AI Comment: Interpretation: < 1.0 AI No Antibody Detected > OR=1.0 AI Antibody Detected Specimen Performing Laboratory Blood - Central Venous Line [facility] [address] [place] [address] Narrative Performing Lab E[facility] [address] [address] Stephen Sneed MD, PhD, DONNY Rheumatoid factor Ab, reflex to titer (11/19/2017 3:21 PM) Component Value Ref Range Rheumatoid Factor Positive Specimen Performing Laboratory Blood - Central Venous Line [address] [address] Anti-Neutrophil Cytoplasmic Ab (ANCA) (11/19/2017 3:21 PM) Component Value Ref Range Proteinase-3 Ab <1.0 <1.0 AI Comment: <1.0 AI No Antibody Detected > or=1.0 AI Antibody Detected Autoantibodies to proteinase-3 (MD-3) are accepted as characteristic for granulomatosis with polyangiitis (GPA, Skyla's), and are detectable in 95% of the histologically proven cases. The cytoplasmic IFA pattern, (c-ANCA), is based largely on autoantibody to MD-3 which serves as the primary antigen. These [...] - Central Venous Line [facility] [address] [place] [address] Narrative Performing Lab EZ [facility] [id number] [place] [address] Stephen Sneed MD, PhD, DONNY Rheumatoid factor titer (11/19/2017 3:21 PM) Component Value Ref Range Rheumatoid Factor TTR 1:8 Specimen Performing Laboratory Blood - Central Venous Line [address] [address] Anti-Nuclear Antibody (YOLA) (11/19/2017 3:21 PM) Component Value Ref Range YOLA Negative Negative Specimen Performing Laboratory Blood - Central Venous Line [address] [address] Lactic acid, venous, whole blood (11/19/2017 6:17 AM)Only the most recent of5 resultswithin the time period is included. Component Value Ref Range Lactate, Venous 3.8 (H)Comment: Specimen slightly hemolyzed 0.5 - 2.2 mmol/L Specimen Performing Laboratory Blood - Central Venous Line [address] [address] Narrative Effective 09/27/2015: Units/Reference Range Change New: 0.5-2.2 mmol/LPrevious: 5-20 mg/dL Potassium (11/19/2017 6:17 AM)Only the most recent of4 resultswithin the time period is included. Component Value Ref Range Potassium 4.6 3.5 - 5.1 meq/L Specimen Performing Laboratory Blood - Central Venous Line [address] [address] Creatine Kinase (CK), Total and MB (11/19/2017 6:17 AM)Only the most recent of4 resultswithin the time period is included. Component Value Ref Range Total CK 141 29 - 200 U/L CK-MB 7.9 (H) 0.0 - 6.6 ng/mL MB Relative Index 5.6 % Specimen Performing Laboratory Blood - Central Venous Line [facility] [address] [place] [address] Narrative CK-MB Reference Range: <6.7Normal 6.7-10.0Borderline >10.0 Abnormal ECHOCARDIOGRAM REPORT - SCAN (11/18/2017 5:14 PM)Central Line (11/18/2017 2: 43 PM) Narrative Adalberto Horan [facility] 11/18/20172:43 PM Central Line Date/Time: [...] to verify the correct patient, procedure, equipment, credit support specialist and site/side marked as required. [...] Ref Range Ejection Fraction Specimen Performing Laboratory [facility] Narrative Transthoracic Echocardiography Report (TTE) Demographics Patient Name NAYLA GALLO Date of Study 11/18/2017 [id number] GenderMale Visit Number [id number] Race Unknown [id number] Number [id number] Number Date of Birth1935 Referring Physician Angela Cormier MD Age82 year(s) Slat Basket Maker NISHANT Flores,Interpreting Sabino Zheng MD [facility] Physician Procedure Type of Study TTE [...] of Study 11/18/2017 Gender Male Visit Number [id number] Race Unknown Room Number [id number] Number Date of 1935 Referring Physician Angela Cormier MD Age 82 year(s) Slat Basket Maker Ian Sanchez, [facility] Gizzard Puller Pam Longoria, Toby Zheng MD [facility] Physician Procedure Type of Study TTE [...] complete (11/18/2017 1:48 PM) Specimen Performing Laboratory [employer] FINAL REPORT Ultrasound of the Kidneys Clinical [...] MD Report Verified Date/Time:11/18/2017 16:16:10 Reading Location: [address] Ultrasound Reading Room Procedure Note Interface, [...] Report Verified Date/Time: 11/18/2017 16:16:10 Reading Location: [address] Ultrasound Reading Room Blood gas, venous [...] FIO2 36.0 % Specimen Performing Laboratory Blood [address] [address] Hepatitis C antibody (11/18/2017 10:15 AM) Component Value Ref Range Hepatitis C Ab Nonreactive Nonreactive Specimen Performing Laboratory Blood [address] [address] Hepatitis B core antibody, IgM (11/18/2017 10:15 AM) Component Value Ref Range Hep B C IgM Nonreactive Nonreactive Specimen Performing Laboratory Blood [address] [address] Hepatitis B core antibody, total (11/18/2017 10:15 AM) Component Value Ref Range Hep B Core Total Ab Nonreactive Nonreactive Specimen Performing Laboratory Blood [address] [address] Hepatitis B surface antigen (11/18/2017 10:15 AM) Component Value Ref Range hepatitis B Surface Ag Nonreactive Nonreactive Specimen Performing Laboratory Blood [address] [address] Hepatic function panel (11/18/2017 8:57 AM) Component [...] Performing Laboratory Blood - Central Venous Line [address] [address] Narrative Call [phone] Electrolytes (11/18/2017 8:57 AM) Component Value Ref Range Sodium 133 (L) 136 - 145 meq/L Potassium 6.8 (HH) 3.5 - 5.1 meq/L Chloride 102 98 - 107 meq/L CO2 8 (LL) 22 - 29 meq/L Specimen Performing Laboratory Blood - Central Venous Line [address] [address] Narrative Call [phone] Type and screen, automated (11/18/2017 5:47 AM) Component Value Ref Range ABO/RH AUTOMATED (BEAKER) O POSITIVE Ab Scrn NEGATIVE Specimen Performing Laboratory Blood [address] [address] Blood culture (11/18/2017 5:46 AM) Component Value Ref Range Result No growth in 5 days Specimen Performing Laboratory Blood - Central Venous Line [address] [address] after 12/19/2016
--- OUTSIDE RECORDS SUMMARY | 2017-12-20 12:57 | XMS REPORT ---
:1935 [facility] Address [address] [place] [address] Dr. Berumen [address] [place] [id number] Care Team Providers Name Role Phone CLARITA GUZMAN Unavailable Unavailable Problems This patient has no known problems. Allergies, Adverse Reactions, Alerts This patient has no known allergies or adverse reactions. Medications This patient has no known medications. Results Test Description Test Time Test Comments Text Results Atomic Results Result Comments TISSUE EXAM 2017-12-09 18:37:00 Surgical Pathology Report Case: [id number] Authorizing Provider: Charles De La Torre, Collected: 11/28/2017 Pauline COOMBS Ordering Location: [address] Received: 11/28/2017 1115 Service Pathologist: Bryant Rodriguez MD Specimen: Kidney, [facility] K[facility]NEY, LEFT, NEEDLE BIOPSIES- ADVANCED DIABETIC GLOMERULOSCLEROSIS- NEGATIVE FOR IMMUNE MEDIATED GLOMERULONEPHRITIS- DIFFUSE INTERSTITIAL FIBROSIS AND TUBULAR ATROPHY (~70%)- MODERATE TO SEVERE ARTERIAL INTIMAL SCLEROSIS- DIFFUSE ARTERIOLAR HYALINOSIS- SEE COMMENT Signing Pathologist Direct Phone Line: [phone] signed by Bryant Rodriguez MD on 12/09/2017 [...] 70% of renal parenchyma. Reference: 1. Alexys Jamse., Rody Harry, Amy Blackmon., Dale, A.H., Octavio, H.T., Lucho Milan, Ellie Chau, Nohemy Asencio., Champ Guerra., de Rock Moore., et al. Pathologic classification of diabetic nephropathy. J Am Soc Nephrol 21:556-563, 2010.The results were communicated to Dr. Holder by Dr. Rodriguez on 12/01/2017.91963, 26159 x3, 12564, 81366 x7, [id number] as communicated by Dr. Holder: 82 year old with long standing history of DM, now presents with increase in serum creatinine and 3g proteinuria. All serologies negativeNative kidney biopsyThe specimen is received in three parts all labeled with the patient's information and labeled "[place] kidney biopsy". Received in formalin are two [...] no significant glomerular, tubulointerstitial or vascular staining. Reinbeck: negative in open glomeruli, focal weak granular [...] focally measuring upto 1163 nm (normal male fmrqnbw=039 - 430 nm nm; Mari Oakes. Arch Pathol Lab Med 133; 224-232). Subendothelial, subepithelial, and mesangial/paramesangial electron-dense, immune complex-type deposits are not present. 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 POCT-GLUCOSE METER 2017-12-03 17:15:00 Test Item Value Reference Range Comments POC-GLUCOSE METER (BEAKER) (test 229 mg/dL 70-110 TESTED AT [address] oisa=2314) [facility] [address] POCT-GLUCOSE [id number] 12:01:00 Test Item Value Reference Range Comments POC-GLUCOSE METER (BEAKER) 254 mg/dL 70-110 TESTED AT [address] (test eahh=4907) [facility] [address] POCT-GLUCOSE [id number] 07:46:00 Test Item Value Reference Range Comments POC-GLUCOSE METER (BEAKER) 233 mg/dL 70-110 TESTED AT [address] (test ikvl=5663) [place] [id number] 05:56:00 Test Item Value Reference Range Comments PHOSPHORUS (BEAKER) (test fydq=687) 3.8 mg/dL 2.3-4.7 [id number] 05:56:00 Test Item Value Reference Range Comments MAGNESIUM (BEAKER) (test tirk=488) 1.7 mg/dL 1.6-2.6 BASIC METABOLIC [id number] 05:56:00 Test Item Value Reference Range Comments SODIUM (BEAKER) (test 132 meq/L 136-145 cnjb=752) POTASSIUM (BEAKER) (test 4.4 meq/L 3.5-5.1 euuw=161) CHLORIDE (BEAKER) (test 104 meq/L 98-107 pqoe=771) CO2 (BEAKER) (test 18 meq/L 22-29 wwbe=700) BLOOD UREA NITROGEN 44 mg/dL 7-21 (BEAKER) (test depl=445) CREATININE (BEAKER) (test 1.90 mg/dL 0.57-1.25 gvwy=284) GLUCOSE RANDOM (BEAKER) 204 mg/dL 70-105 (test nmzh=369) CALCIUM (BEAKER) (test 8.8 mg/dL 8.4-10.2 hbit=542) EGFR (BEAKER) (test 34 mL/min/1.73 sq m ESTIMATED GFR IS NOT ynzj=4088) ACCURATE CREATININE CLEARANCE IN PREDICTING GLOMERULAR FILTRATION RATE. ESTIMATED GFR IS NOT APPLICABLE FOR DIALYSIS PATIENTS. CBC W/PLT COUNT & AUTO [id number] 05:25:00 Test Item Value Reference Range Comments WHITE BLOOD CELL COUNT (BEAKER) (test ghys=017) 10.6 K/ L 3.5-10.5 RED BLOOD CELL COUNT (BEAKER) (test biou=238) 2.90 M/ L 4.63-6.08 HEMOGLOBIN (BEAKER) (test obkg=928) 8.3 GM/DL 13.7-17.5 HEMATOCRIT (BEAKER) (test cyzj=812) 25.4 % 40.1-51.0 MEAN CORPUSCULAR VOLUME (BEAKER) (test rcvy=537) 87.6 fL 79.0-92.2 MEAN CORPUSCULAR HEMOGLOBIN (BEAKER) (test 28.6 pg 25.7-32.2 tpdq=746) MEAN CORPUSCULAR HEMOGLOBIN CONC (BEAKER) (test 32.7 GM/DL 32.3-36.5 bafx=060) RED CELL DISTRIBUTION WIDTH (BEAKER) (test 13.8 % 11.6-14.4 uopv=917) PLATELET COUNT (BEAKER) (test baga=927) 490 K/CU MM 150-450 MEAN PLATELET VOLUME (BEAKER) (test rvxb=387) 8.9 fL 9.4-12.4 NUCLEATED RED BLOOD CELLS (BEAKER) (test 0 /100 WBC 0-0 rsvb=781) NEUTROPHILS RELATIVE PERCENT (BEAKER) (test 63 % lwbn=755) LYMPHOCYTES RELATIVE PERCENT (BEAKER) (test 16 % tszh=690) MONOCYTES RELATIVE PERCENT (BEAKER) (test 12 % yhxl=563) EOSINOPHILS RELATIVE PERCENT (BEAKER) (test 6 % oumb=603) BASOPHILS RELATIVE PERCENT (BEAKER) (test 1 % qaue=610) NEUTROPHILS ABSOLUTE COUNT (BEAKER) (test 6.69 K/ L 1.78-5.38 nyel=380) LYMPHOCYTES ABSOLUTE COUNT (BEAKER) (test 1.71 K/ L 1.32-3.57 sfdx=702) MONOCYTES ABSOLUTE COUNT (BEAKER) (test 1.26 K/ L 0.30-0.82 sqwi=876) EOSINOPHILS ABSOLUTE COUNT (BEAKER) (test 0.68 K/ L 0.04-0.54 zoot=528) BASOPHILS ABSOLUTE COUNT (BEAKER) (test 0.12 K/ L 0.01-0.08 uhfz=509) IMMATURE GRANULOCYTES-RELATIVE PERCENT (BEAKER) 2 % 0-1 (test gmil=2264) URINALYSIS W/ [id number] 23:14:00 Test Item Value Reference Range Comments COLOR (BEAKER) (test pyvs=597) Light Yellow CLARITY (BEAKER) (test nduh=774) Clear SPECIFIC GRAVITY UA (BEAKER) (test 1.007 1.001-1.035 bvgo=859) PH UA (BEAKER) (test gyrq=898) 6.5 5.0-8.0 PROTEIN UA (BEAKER) (test vmpn=312) 600 mg/dL Negative GLUCOSE UA (BEAKER) (test iwfu=723) 500 mg/dL Negative KETONES UA (BEAKER) (test tesv=290) Negative Negative BILIRUBIN UA (BEAKER) (test rdax=871) Negative Negative BLOOD UA (BEAKER) (test ayxn=013) Small Negative NITRITE UA (BEAKER) (test grtx=810) Negative Negative LEUKOCYTE ESTERASE UA (BEAKER) (test Negative Negative rylw=316) UROBILINOGEN UA (BEAKER) (test lgsf=390) 0.2 mg/dL 0.2-1.0 RBC UA (BEAKER) (test egdo=536) 3 /HPF WBC UA (BEAKER) (test gliv=907) 2 /HPF SQUAMOUS EPITHELIAL (BEAKER) (test < /HPF wwqx=011) HYALINE CASTS (BEAKER) (test iijq=477) 2 /LPF AMORPHOUS CRYSTALS (BEAKER) (test Rare jidi=3003) SOURCE(BEAKER) (test zkft=5995) Urine, Clean Catch POCT-GLUCOSE [id number] 21:20:00 Test Item Value Reference Range Comments POC-GLUCOSE METER (BEAKER) 206 mg/dL 70-110 TESTED AT [address] (test hdbr=7519) [place] [id number] POCT-GLUCOSE [id number] 17:20:00 Test Item Value Reference Range Comments POC-GLUCOSE METER (BEAKER) 268 mg/dL 70-110 TESTED AT [address] (test amwi=2941) [place] [id number] POCT-GLUCOSE [id number] 16:20:00 Test Item Value Reference Range Comments POC-GLUCOSE METER (BEAKER) 249 mg/dL 70-110 TESTED AT [address] (test zsom=6744) [place] [id number] POCT-GLUCOSE [id number] 14:29:00 Test Item Value Reference Range Comments POC-GLUCOSE METER (BEAKER) 196 mg/dL 70-110 TESTED AT [address] (test iord=8246) [place] [address] [id number] 08:17:00 Test Item Value Reference Range Comments PHOSPHORUS (BEAKER) (test pirs=535) 3.8 mg/dL 2.3-4.7 [id number] 08:17:00 Test Item Value Reference Range Comments MAGNESIUM (BEAKER) (test iahb=308) 1.7 mg/dL 1.6-2.6 BASIC METABOLIC [id number] 08:17:00 Test Item Value Reference Range Comments SODIUM (BEAKER) (test 133 meq/L 136-145 dcra=649) POTASSIUM (BEAKER) (test 4.7 meq/L 3.5-5.1 yjby=877) CHLORIDE (BEAKER) (test 105 meq/L 98-107 nkcw=761) CO2 (BEAKER) (test 19 meq/L 22-29 jhog=980) BLOOD UREA NITROGEN 42 mg/dL 7-21 (BEAKER) (test ezik=876) CREATININE (BEAKER) (test 1.90 mg/dL 0.57-1.25 fabx=761) GLUCOSE RANDOM (BEAKER) 186 mg/dL 70-105 (test govy=632) CALCIUM (BEAKER) (test 9.2 mg/dL 8.4-10.2 bavi=493) EGFR (BEAKER) (test 34 mL/min/1.73 sq m ESTIMATED GFR IS NOT myto=2421) ACCURATE CREATININE CLEARANCE IN PREDICTING GLOMERULAR FILTRATION RATE. ESTIMATED GFR IS NOT APPLICABLE FOR DIALYSIS PATIENTS. POCT-GLUCOSE [id number] 08:15:00 Test Item Value Reference Range Comments POC-GLUCOSE METER (BEAKER) 225 mg/dL 70-110 TESTED AT [address] (test egul=4835) [facility] [address] CBC W/PLT COUNT & AUTO [id number] 08:02:00 Test Item Value Reference Range Comments WHITE BLOOD CELL COUNT (BEAKER) (test yubx=353) 13.4 K/ L 3.5-10.5 RED BLOOD CELL COUNT (BEAKER) (test nlkq=805) 3.10 M/ L 4.63-6.08 HEMOGLOBIN (BEAKER) (test nazz=486) 8.8 GM/DL 13.7-17.5 HEMATOCRIT (BEAKER) (test njgk=867) 27.7 % 40.1-51.0 MEAN CORPUSCULAR VOLUME (BEAKER) (test hxgg=279) 89.4 fL 79.0-92.2 MEAN CORPUSCULAR HEMOGLOBIN (BEAKER) (test 28.4 pg 25.7-32.2 ccms=969) MEAN CORPUSCULAR HEMOGLOBIN CONC (BEAKER) (test 31.8 GM/DL 32.3-36.5 azaw=822) RED CELL DISTRIBUTION WIDTH (BEAKER) (test 13.7 % 11.6-14.4 dohi=076) PLATELET COUNT (BEAKER) (test xkyh=831) 551 K/CU MM 150-450 MEAN PLATELET VOLUME (BEAKER) (test jchk=385) 8.9 fL 9.4-12.4 NUCLEATED RED BLOOD CELLS (BEAKER) (test 0 /100 WBC 0-0 iars=795) NEUTROPHILS RELATIVE PERCENT (BEAKER) (test 69 % apgz=753) LYMPHOCYTES RELATIVE PERCENT (BEAKER) (test 12 % rpqo=009) MONOCYTES RELATIVE PERCENT (BEAKER) (test 11 % gteq=243) EOSINOPHILS RELATIVE PERCENT (BEAKER) (test 6 % swya=682) BASOPHILS RELATIVE PERCENT (BEAKER) (test 1 % cjuw=515) NEUTROPHILS ABSOLUTE COUNT (BEAKER) (test 9.32 K/ L 1.78-5.38 gxro=618) LYMPHOCYTES ABSOLUTE COUNT (BEAKER) (test 1.57 K/ L 1.32-3.57 tcnk=035) MONOCYTES ABSOLUTE COUNT (BEAKER) (test 1.42 K/ L 0.30-0.82 wjbh=087) EOSINOPHILS ABSOLUTE COUNT (BEAKER) (test 0.84 K/ L 0.04-0.54 brmu=597) BASOPHILS ABSOLUTE COUNT (BEAKER) (test 0.09 K/ L 0.01-0.08 cetm=027) IMMATURE GRANULOCYTES-RELATIVE PERCENT (BEAKER) 1 % 0-1 (test azqk=0835) POCT-GLUCOSE [id number] 21:16:00 Test Item Value Reference Range Comments POC-GLUCOSE METER (BEAKER) 302 mg/dL 70-110 TESTED AT [address] (test oluv=0975) [place] [address] POCT-GLUCOSE [id number] 17:13:00 Test Item Value Reference Range Comments POC-GLUCOSE METER (BEAKER) 208 mg/dL 70-110 TESTED AT [address] (test cqqv=1097) [place] [address] POCT-GLUCOSE [id number] 13:20:00 Test Item Value Reference Range Comments POC-GLUCOSE METER (BEAKER) 252 mg/dL 70-110 TESTED AT [address] (test ljxi=2858) [place] [address] POCT-GLUCOSE [id number] 08:25:00 Test Item Value Reference Range Comments POC-GLUCOSE METER (BEAKER) 229 mg/dL 70-110 TESTED AT [address] (test bzbj=4147) [place] [address] BASIC METABOLIC [id number] 06:57:00 Test Item Value Reference Range Comments SODIUM (BEAKER) (test 131 meq/L 136-145 luts=291) POTASSIUM (BEAKER) (test 4.4 meq/L 3.5-5.1 abyk=642) CHLORIDE (BEAKER) (test 102 meq/L 98-107 jryr=936) CO2 (BEAKER) (test 19 meq/L 22-29 ifap=782) BLOOD UREA NITROGEN 43 mg/dL 7-21 (BEAKER) (test kgkg=049) CREATININE (BEAKER) (test 2.24 mg/dL 0.57-1.25 lehi=317) GLUCOSE RANDOM (BEAKER) 198 mg/dL 70-105 (test iron=305) CALCIUM (BEAKER) (test 8.7 mg/dL 8.4-10.2 hfuu=167) EGFR (BEAKER) (test 28 mL/min/1.73 sq m ESTIMATED GFR IS NOT lrbs=9015) ACCURATE CREATININE CLEARANCE IN PREDICTING GLOMERULAR FILTRATION RATE. ESTIMATED GFR IS NOT APPLICABLE FOR DIALYSIS PATIENTS. [id number] 06:55:00 Test Item Value Reference Range Comments PHOSPHORUS (BEAKER) (test aqzy=131) 3.8 mg/dL 2.3-4.7 [id number] 06:55:00 Test Item Value Reference Range Comments MAGNESIUM (BEAKER) (test ppnu=034) 1.7 mg/dL 1.6-2.6 CBC W/PLT COUNT & AUTO [id number] 06:09:00 Test Item Value Reference Range Comments WHITE BLOOD CELL COUNT (BEAKER) (test tyus=333) 14.0 K/ L 3.5-10.5 RED BLOOD CELL COUNT (BEAKER) (test yhmq=494) 3.12 M/ L 4.63-6.08 HEMOGLOBIN (BEAKER) (test ktgg=831) 9.0 GM/DL 13.7-17.5 HEMATOCRIT (BEAKER) (test enqk=042) 27.6 % 40.1-51.0 MEAN CORPUSCULAR VOLUME (BEAKER) (test hvne=206) 88.5 fL 79.0-92.2 MEAN CORPUSCULAR HEMOGLOBIN (BEAKER) (test 28.8 pg 25.7-32.2 msdr=114) MEAN CORPUSCULAR HEMOGLOBIN CONC (BEAKER) (test 32.6 GM/DL 32.3-36.5 ozfi=133) RED CELL DISTRIBUTION WIDTH (BEAKER) (test 13.6 % 11.6-14.4 ehyf=899) PLATELET COUNT (BEAKER) (test sdoc=597) 451 K/CU MM 150-450 MEAN PLATELET VOLUME (BEAKER) (test skdl=606) 8.8 fL 9.4-12.4 NUCLEATED RED BLOOD CELLS (BEAKER) (test 0 /100 WBC 0-0 bxud=253) NEUTROPHILS RELATIVE PERCENT (BEAKER) (test 70 % fejs=988) LYMPHOCYTES RELATIVE PERCENT (BEAKER) (test 12 % kwzw=629) MONOCYTES RELATIVE PERCENT (BEAKER) (test 10 % enrf=635) EOSINOPHILS RELATIVE PERCENT (BEAKER) (test 6 % lrde=120) BASOPHILS RELATIVE PERCENT (BEAKER) (test 1 % jubv=076) NEUTROPHILS ABSOLUTE COUNT (BEAKER) (test 9.86 K/ L 1.78-5.38 bqox=443) LYMPHOCYTES ABSOLUTE COUNT (BEAKER) (test 1.63 K/ L 1.32-3.57 ecld=617) MONOCYTES ABSOLUTE COUNT (BEAKER) (test 1.40 K/ L 0.30-0.82 jaer=513) EOSINOPHILS ABSOLUTE COUNT (BEAKER) (test 0.85 K/ L 0.04-0.54 tqdl=455) BASOPHILS ABSOLUTE COUNT (BEAKER) (test 0.08 K/ L 0.01-0.08 mbjw=813) IMMATURE GRANULOCYTES-RELATIVE PERCENT (BEAKER) 1 % 0-1 (test hupj=1158) POCT-GLUCOSE [id number] 17:30:00 Test Item Value Reference Range Comments POC-GLUCOSE METER (BEAKER) 149 mg/dL 70-110 TESTED AT [address] (test zbmx=3556) [facility] [address] POCT-GLUCOSE [id number] 12:10:00 Test Item Value Reference Range Comments POC-GLUCOSE METER (BEAKER) 245 mg/dL 70-110 TESTED AT [address] (test ttdg=0572) [facility] [address] CBC W/PLT COUNT & AUTO [id number] 10:30:00 Test Item Value Reference Range Comments WHITE BLOOD CELL COUNT (BEAKER) (test bwtt=169) 12.6 K/ L 3.5-10.5 RED BLOOD CELL COUNT (BEAKER) (test pgmm=122) 2.95 M/ L 4.63-6.08 HEMOGLOBIN (BEAKER) (test ghmu=607) 8.6 GM/DL 13.7-17.5 HEMATOCRIT (BEAKER) (test fdfz=692) 26.3 % 40.1-51.0 MEAN CORPUSCULAR VOLUME (BEAKER) (test gadk=759) 89.2 fL 79.0-92.2 MEAN CORPUSCULAR HEMOGLOBIN (BEAKER) (test 29.2 pg 25.7-32.2 dkaq=160) MEAN CORPUSCULAR HEMOGLOBIN CONC (BEAKER) (test 32.7 GM/DL 32.3-36.5 icgs=834) RED CELL DISTRIBUTION WIDTH (BEAKER) (test 13.8 % 11.6-14.4 wgqf=723) PLATELET COUNT (BEAKER) (test agdc=974) 428 K/CU MM 150-450 MEAN PLATELET VOLUME (BEAKER) (test gcih=154) 9.1 fL 9.4-12.4 NUCLEATED RED BLOOD CELLS (BEAKER) (test 0 /100 WBC 0-0 ivzy=343) (CELLAVISION MANUAL DIFF)2017-11-30 10:30:00 Test Item Value Reference Range Comments NEUTROPHILS - REL (CELLAVISION)(BEAKER) (test 83 % vmqt=0712) LYMPHOCYTES - REL (CELLAVISION)(BEAKER) (test 8 % baje=9288) MONOCYTES - REL (CELLAVISION)(BEAKER) (test 4 % nwml=2427) EOSINOPHILS - REL (CELLAVISION)(BEAKER) (test 4 % oogm=1168) BASOPHILS - REL (CELLAVISION)(BEAKER) (test 1 % bcir=1022) NEUTROPHILS - ABS (CELLAVISION)(BEAKER) (test 10.46 K/ul 1.78-5.38 spmr=0159) LYMPHOCYTES - ABS (CELLAVISION)(BEAKER) (test 1.01 K/ul 1.32-3.57 nhve=1521) MONOCYTES - ABS (CELLAVISION)(BEAKER) (test 0.50 K/uL 0.30-0.82 tqyj=3376) EOSINOPHILS - ABS (CELLAVISION)(BEAKER) (test 0.50 K/uL 0.04-0.54 zzfs=1607) BASOPHILS - ABS (CELLAVISION)(BEAKER) (test 0.13 K/uL 0.01-0.08 ltad=2519) TOTAL COUNTED (BEAKER) (test aqyo=5464) 100 MANUAL NRBC PER 100 CELLS (BEAKER) (test 1 /100 WBC 0-0 rksl=7253) WBC MORPHOLOGY (BEAKER) (test osgl=760) Normal PLT MORPHOLOGY (BEAKER) (test ajim=011) Normal ANISOCYTOSIS (BEAKER) (test ouyf=542) 1+ few MICROCYTES (BEAKER) (test bala=353) 1+ few ARTIFACT (CELLAVISION)(BEAKER) (test vddi=0028) Present PLATELET CONCENTRATION (CELLAVISION)(BEAKER) Adequate (test zxti=6858) Received comment: User comments: Slide comments:POCT-GLUCOSE [id number] 08: 03:00 Test Item Value Reference Range Comments POC-GLUCOSE METER (BEAKER) 242 mg/dL 70-110 TESTED AT [facility] [address] [facility] (test rqgx=4177) [facility] [address] [id number] 07:26:00 Test Item Value Reference Range Comments PHOSPHORUS (BEAKER) (test oiot=540) 3.6 mg/dL 2.3-4.7 [id number] 07:26:00 Test Item Value Reference Range Comments MAGNESIUM (BEAKER) (test uwrf=330) 1.9 mg/dL 1.6-2.6 BASIC METABOLIC [id number] 07:26:00 Test Item Value Reference Range Comments SODIUM (BEAKER) (test 131 meq/L 136-145 zora=468) POTASSIUM (BEAKER) (test 4.3 meq/L 3.5-5.1 blot=001) CHLORIDE (BEAKER) (test 102 meq/L 98-107 xfvk=028) CO2 (BEAKER) (test 20 meq/L 22-29 blug=572) BLOOD UREA NITROGEN 44 mg/dL 7-21 (BEAKER) (test beyv=918) CREATININE (BEAKER) (test 1.98 mg/dL 0.57-1.25 dfnb=178) GLUCOSE RANDOM (BEAKER) 216 mg/dL 70-105 (test uqca=392) CALCIUM (BEAKER) (test 8.8 mg/dL 8.4-10.2 wdep=972) EGFR (BEAKER) (test 33 mL/min/1.73 sq m ESTIMATED GFR IS NOT ktdb=0542) ACCURATE CREATININE CLEARANCE IN PREDICTING GLOMERULAR FILTRATION RATE. ESTIMATED GFR IS NOT APPLICABLE FOR DIALYSIS PATIENTS. POCT-GLUCOSE [id number] 21:03:00 Test Item Value Reference Range Comments POC-GLUCOSE METER (BEAKER) 414 mg/dL 70-110 TESTED AT [address] (test ibjv=1762) [facility] [address] POCT-GLUCOSE [id number] 17:11:00 Test Item Value Reference Range Comments POC-GLUCOSE METER (BEAKER) 201 mg/dL 70-110 TESTED AT [address] (test ppkk=7563) [facility] [address] POCT-GLUCOSE [id number] 11:55:00 Test Item Value Reference Range Comments POC-GLUCOSE METER (BEAKER) 228 mg/dL 70-110 TESTED AT [address] (test qdnm=6672) [facility] [address] CALCIUM, [id number] 08:13:00 Test Item Value Reference Range Comments CALCIUM IONIZED (BEAKER) (test kgir=372) 1.08 mmol/L 1.12-1.27 PH, BLOOD (BEAKER) (test dxjx=9153) 7.32 CBC W/PLT COUNT & AUTO [id number] 07:52:00 Test Item Value Reference Range Comments WHITE BLOOD CELL COUNT (BEAKER) (test nqvz=304) 12.8 K/ L 3.5-10.5 RED BLOOD CELL COUNT (BEAKER) (test ojau=697) 3.11 M/ L 4.63-6.08 HEMOGLOBIN (BEAKER) (test ytiw=412) 9.0 GM/DL 13.7-17.5 HEMATOCRIT (BEAKER) (test rzob=586) 28.0 % 40.1-51.0 MEAN CORPUSCULAR VOLUME (BEAKER) (test hbgq=805) 90.0 fL 79.0-92.2 MEAN CORPUSCULAR HEMOGLOBIN (BEAKER) (test 28.9 pg 25.7-32.2 oenx=378) MEAN CORPUSCULAR HEMOGLOBIN CONC (BEAKER) (test 32.1 GM/DL 32.3-36.5 uvwr=044) RED CELL DISTRIBUTION WIDTH (BEAKER) (test 13.8 % 11.6-14.4 nkcm=965) PLATELET COUNT (BEAKER) (test sxbo=032) 432 K/CU MM 150-450 MEAN PLATELET VOLUME (BEAKER) (test uhec=130) 9.0 fL 9.4-12.4 NUCLEATED RED BLOOD CELLS (BEAKER) (test 0 /100 WBC 0-0 mfxp=141) NEUTROPHILS RELATIVE PERCENT (BEAKER) (test 71 % rcbb=270) LYMPHOCYTES RELATIVE PERCENT (BEAKER) (test 10 % bhwn=326) MONOCYTES RELATIVE PERCENT (BEAKER) (test 11 % vgdo=790) EOSINOPHILS RELATIVE PERCENT (BEAKER) (test 6 % sagj=213) BASOPHILS RELATIVE PERCENT (BEAKER) (test 1 % uknz=943) NEUTROPHILS ABSOLUTE COUNT (BEAKER) (test 9.05 K/ L 1.78-5.38 vjrd=772) LYMPHOCYTES ABSOLUTE COUNT (BEAKER) (test 1.33 K/ L 1.32-3.57 xigt=061) MONOCYTES ABSOLUTE COUNT (BEAKER) (test 1.42 K/ L 0.30-0.82 qrnr=629) EOSINOPHILS ABSOLUTE COUNT (BEAKER) (test 0.76 K/ L 0.04-0.54 zxan=464) BASOPHILS ABSOLUTE COUNT (BEAKER) (test 0.07 K/ L 0.01-0.08 siau=587) IMMATURE GRANULOCYTES-RELATIVE PERCENT (BEAKER) 1 % 0-1 (test tcop=6078) [id number] 07:49:00 Test Item Value Reference Range Comments PHOSPHORUS (BEAKER) (test beqe=512) 3.9 mg/dL 2.3-4.7 [id number] 07:49:00 Test Item Value Reference Range Comments MAGNESIUM (BEAKER) (test zpek=841) 1.8 mg/dL 1.6-2.6 COMPREHENSIVE METABOLIC [id number] 07:49:00 Test Item Value Reference Range Comments TOTAL PROTEIN (BEAKER) 6.2 gm/dL 6.0-8.3 (test qrzc=971) ALBUMIN (BEAKER) (test 2.9 g/dL 3.5-5.0 grbz=8902) ALKALINE PHOSPHATASE 314 U/L 40-150 (BEAKER) (test yquq=219) BILIRUBIN TOTAL (BEAKER) 0.3 mg/dL 0.2-1.2 (test guju=922) SODIUM (BEAKER) (test 132 meq/L 136-145 yaae=504) POTASSIUM (BEAKER) (test 4.2 meq/L 3.5-5.1 wtvy=513) CHLORIDE (BEAKER) (test 102 meq/L 98-107 yeex=524) CO2 (BEAKER) (test 19 meq/L 22-29 jxtx=436) BLOOD UREA NITROGEN 44 mg/dL 7-21 (BEAKER) (test qvgv=858) CREATININE (BEAKER) (test 2.15 mg/dL 0.57-1.25 tkji=313) GLUCOSE RANDOM (BEAKER) 219 mg/dL 70-105 (test gnxt=989) CALCIUM (BEAKER) (test 8.7 mg/dL 8.4-10.2 bxap=142) AST (SGOT) (BEAKER) (test 23 U/L 5-34 uyow=677) ALT (SGPT) (BEAKER) (test 29 U/L 6-55 svpm=875) EGFR (BEAKER) (test 30 mL/min/1.73 sq m ESTIMATED GFR IS NOT tvtw=7554) ACCURATE CREATININE CLEARANCE IN PREDICTING GLOMERULAR FILTRATION RATE. ESTIMATED GFR IS NOT APPLICABLE FOR DIALYSIS PATIENTS. POCT-GLUCOSE [id number] 07:34:00 Test Item Value Reference Range Comments POC-GLUCOSE METER (BEAKER) 251 mg/dL 70-110 TESTED AT [address] (test jpew=5982) [facility] [id number] POCT-GLUCOSE [id number] 20:55:00 Test Item Value Reference Range Comments POC-GLUCOSE METER (BEAKER) 196 mg/dL 70-110 TESTED AT [address] (test qriu=0992) [facility] [address] HEMOGLOBIN AND [id number] 17:55:00 Test Item Value Reference Range Comments HEMOGLOBIN (BEAKER) (test rkhp=906) 9.0 GM/DL 13.7-17.5 HEMATOCRIT (BEAKER) (test gasa=149) 27.6 % 40.1-51.0 Call [id number] 13:46:00 Test Item Value Reference Range Comments POC-GLUCOSE METER (BEAKER) 245 mg/dL 70-110 TESTED AT [address] (test yrir=9823) [place] [address] U/S, BIOPSY, RENAL (KIDNEY)2017-11-28 10:42:00Reason for exam:->BASSEM, nephrotic proteinuriaFINAL REPORT Ultrasound guided core biopsy of the left [place] kidney dated 11/28/2017 Procedure: Core biopsy of the left [place] kidney. Clinical Indication: Proteinuria Sedation: Moderate sedation [...] ultrasound guided core biopsy of the left [place] kidney was performed under usual sterile technique. Using an 18 gauge core biopsy needle, puncture was made posteriorly onthe left with real time ultrasound guidance. 2 passes were performed with sufficient material for histology. Patient tolerated procedure well. Complication: None Estimated Blood Loss: None The specimen was sent to pathology. Impression: Successful ultrasound -guided core biopsy of the left [place] kidney. Signed: Davon Diallo Verified Date/Time: 11/28/2017 10:42:49 Reading Location: [address] Ultrasound Reading Room Electronically signed by: DAVON DIALLO M.D. on 10/2017 10:42 AMPOCT-GLUCOSE [id number] 08:29:00 Test Item Value Reference Range Comments POC-GLUCOSE METER (BEAKER) 286 mg/dL 70-110 TESTED AT [address] (test lgbz=3351) [place] [address] CBC W/PLT COUNT & AUTO [id number] 05:46:00 Test Item Value Reference Range Comments WHITE BLOOD CELL COUNT (BEAKER) (test obpt=456) 11.4 K/ L 3.5-10.5 RED BLOOD CELL COUNT (BEAKER) (test juaw=738) 2.96 M/ L 4.63-6.08 HEMOGLOBIN (BEAKER) (test jkvv=833) 8.8 GM/DL 13.7-17.5 HEMATOCRIT (BEAKER) (test dbro=962) 26.4 % 40.1-51.0 MEAN CORPUSCULAR VOLUME (BEAKER) (test ncvz=755) 89.2 fL 79.0-92.2 MEAN CORPUSCULAR HEMOGLOBIN (BEAKER) (test 29.7 pg 25.7-32.2 xkmh=066) MEAN CORPUSCULAR HEMOGLOBIN CONC (BEAKER) (test 33.3 GM/DL 32.3-36.5 nelo=298) RED CELL DISTRIBUTION WIDTH (BEAKER) (test 13.7 % 11.6-14.4 gyyt=573) PLATELET COUNT (BEAKER) (test jhjo=543) 401 K/CU MM 150-450 MEAN PLATELET VOLUME (BEAKER) (test rrav=316) 9.0 fL 9.4-12.4 NUCLEATED RED BLOOD CELLS (BEAKER) (test 0 /100 WBC 0-0 wjjx=212) NEUTROPHILS RELATIVE PERCENT (BEAKER) (test 67 % ejfx=015) LYMPHOCYTES RELATIVE PERCENT (BEAKER) (test 11 % lzpq=904) MONOCYTES RELATIVE PERCENT (BEAKER) (test 14 % fzsh=476) EOSINOPHILS RELATIVE PERCENT (BEAKER) (test 7 % qdyv=570) BASOPHILS RELATIVE PERCENT (BEAKER) (test 1 % odvu=787) NEUTROPHILS ABSOLUTE COUNT (BEAKER) (test 7.70 K/ L 1.78-5.38 pvia=035) LYMPHOCYTES ABSOLUTE COUNT (BEAKER) (test 1.26 K/ L 1.32-3.57 qvrl=324) MONOCYTES ABSOLUTE COUNT (BEAKER) (test 1.55 K/ L 0.30-0.82 jlar=808) EOSINOPHILS ABSOLUTE COUNT (BEAKER) (test 0.74 K/ L 0.04-0.54 uatz=671) BASOPHILS ABSOLUTE COUNT (BEAKER) (test 0.06 K/ L 0.01-0.08 vicn=780) IMMATURE GRANULOCYTES-RELATIVE PERCENT (BEAKER) 1 % 0-1 (test klbd=9005) COMPREHENSIVE METABOLIC [id number] 05:41:00 Test Item Value Reference Range Comments TOTAL PROTEIN (BEAKER) 6.0 gm/dL 6.0-8.3 (test azsi=103) ALBUMIN (BEAKER) (test 2.9 g/dL 3.5-5.0 uqvb=7797) ALKALINE PHOSPHATASE 346 U/L 40-150 (BEAKER) (test xwjq=267) BILIRUBIN TOTAL (BEAKER) 0.2 mg/dL 0.2-1.2 (test llbs=575) SODIUM (BEAKER) (test 131 meq/L 136-145 cxmu=815) POTASSIUM (BEAKER) (test 3.9 meq/L 3.5-5.1 gigq=906) CHLORIDE (BEAKER) (test 103 meq/L 98-107 splv=562) CO2 (BEAKER) (test 20 meq/L 22-29 gndj=843) BLOOD UREA NITROGEN 44 mg/dL 7-21 (BEAKER) (test qaqz=207) CREATININE (BEAKER) (test 2.41 mg/dL 0.57-1.25 mqtw=629) GLUCOSE RANDOM (BEAKER) 288 mg/dL 70-105 (test pcsv=486) CALCIUM (BEAKER) (test 8.4 mg/dL 8.4-10.2 jitc=776) AST (SGOT) (BEAKER) (test 24 U/L 5-34 lvoj=420) ALT (SGPT) (BEAKER) (test 29 U/L 6-55 qfbi=325) EGFR (BEAKER) (test 26 mL/min/1.73 sq m ESTIMATED GFR IS NOT ikxv=6366) ACCURATE CREATININE CLEARANCE IN PREDICTING GLOMERULAR FILTRATION RATE. ESTIMATED GFR IS NOT APPLICABLE FOR DIALYSIS PATIENTS. [id number] 05:40:00 Test Item Value Reference Range Comments PHOSPHORUS (BEAKER) (test wyyy=394) 3.9 mg/dL 2.3-4.7 [id number] 05:40:00 Test Item Value Reference Range Comments MAGNESIUM (BEAKER) (test oyit=296) 1.6 mg/dL 1.6-2.6 CALCIUM, [id number] 05:30:00 Test Item Value Reference Range Comments CALCIUM IONIZED (BEAKER) (test hiko=664) 1.05 mmol/L 1.12-1.27 PH, BLOOD (BEAKER) (test xbnr=5941) 7.36 POCT-GLUCOSE [id number] 21:53:00 Test Item Value Reference Range Comments POC-GLUCOSE METER (BEAKER) 346 mg/dL 70-110 Notified CHIQUITA COOMBS/TESTED AT [facility] (test cgxg=9903) [address] [facility] [address] POCT-GLUCOSE [id number] 17:08:00 Test Item Value Reference Range Comments POC-GLUCOSE METER (BEAKER) 365 mg/dL 70-110 Notified CHIQUITA COOMBS/TESTED AT [facility] (test pkco=0360) [address] [place] [address] POCT-GLUCOSE [id number] 17:01:00 Test Item Value Reference Range Comments POC-GLUCOSE METER (BEAKER) 294 mg/dL 70-110 TESTED AT [facility] [address] [place] [address] (test kbux=5792) [facility] [address] URINE IMMUNOFIXATION, 24 [id number] 10:11:00 Test Item Value Reference Range Comments VOLUME, TOTAL (BEAKER) (test 1700 ml cfzt=8171) PROTEIN, URINE (BEAKER) 176 mg/dL 0-14 (test qppk=5743) PROTEIN, 24HR URINE (BEAKER) 2992 mg/24hr 0-300 (test orlp=5899) ALBUMIN, 24HR URINE (BEAKER) 30.3 % (test miqs=4817) GLOBULIN, 24HR URINE 69.7 % (BEAKER) (test gucy=2797) URINE MATEO ID (BEAKER) (test No monoclonal proteins or esuc=2947) monoclonal free light chains detected. [id number] Mary Robledo MD (BEAKER) (test rogw=3410) (electronic signature) RAD, CHEST, 1 VIEW, NON [id number] 08:40:00Reason for exam:->edemaShould this be performed at the bedside?->YesFINAL REPORT CLINICAL HISTORY: edema TECHNIQUE: 1 view of the chest. COMPARISON: 11/18/2017 IMPRESSION: The right central line remains in the SVC. Mild bilateral airspace opacities have decreased. Trace bilateral pleural effusions remain. The cardiomediastinal silhouette is magnified by technique. Signed: Loida Phillips MDReport Verified Date/Time: 11/27/2017 08:40:13 Reading Location: [facility] Radiology Reading Room Electronically signed by: LOIDA PHILLIPS M.D. 11/27/2017 08:40 AMPOCT-GLUCOSE [id number] 08:13:00 Test Item Value Reference Range Comments POC-GLUCOSE METER (BEAKER) 193 mg/dL 70-110 TESTED AT [facility] [address] (test lmij=4742) [facility] [address] COMPREHENSIVE METABOLIC [id number] 06:59:00 Test Item Value Reference Range Comments TOTAL PROTEIN (BEAKER) 5.9 gm/dL 6.0-8.3 (test bgon=459) ALBUMIN (BEAKER) (test 2.8 g/dL 3.5-5.0 figh=9932) ALKALINE PHOSPHATASE 297 U/L 40-150 (BEAKER) (test rhir=813) BILIRUBIN TOTAL (BEAKER) 0.3 mg/dL 0.2-1.2 (test zfhx=586) SODIUM (BEAKER) (test 132 meq/L 136-145 urpi=813) POTASSIUM (BEAKER) (test 3.7 meq/L 3.5-5.1 fyvc=399) CHLORIDE (BEAKER) (test 103 meq/L 98-107 laat=441) CO2 (BEAKER) (test 19 meq/L 22-29 zwdq=610) BLOOD UREA NITROGEN 42 mg/dL 7-21 (BEAKER) (test cyig=844) CREATININE (BEAKER) (test 2.33 mg/dL 0.57-1.25 strt=380) GLUCOSE RANDOM (BEAKER) 168 mg/dL 70-105 (test lmia=524) CALCIUM (BEAKER) (test 8.3 mg/dL 8.4-10.2 nvyd=762) AST (SGOT) (BEAKER) (test 27 U/L 5-34 nfvc=391) ALT (SGPT) (BEAKER) (test 31 U/L 6-55 redi=225) EGFR (BEAKER) (test 27 mL/min/1.73 sq m ESTIMATED GFR IS NOT bxve=9486) ACCURATE CREATININE CLEARANCE IN PREDICTING GLOMERULAR FILTRATION RATE. ESTIMATED GFR IS NOT APPLICABLE FOR DIALYSIS PATIENTS. [id number] 06:57:00 Test Item Value Reference Range Comments PHOSPHORUS (BEAKER) (test iyyd=203) 3.9 mg/dL 2.3-4.7 [id number] 06:57:00 Test Item Value Reference Range Comments MAGNESIUM (BEAKER) (test wput=505) 1.6 mg/dL 1.6-2.6 CALCIUM, [id number] 06:56:00 Test Item Value Reference Range Comments CALCIUM IONIZED (BEAKER) (test zdub=208) 1.02 mmol/L 1.12-1.27 PH, BLOOD (BEAKER) (test dzqb=2477) 7.37 B-TYPE NATRIURETIC FACTOR (BNP)2017-11-27 06:43:00 Test Item Value Reference Range Comments B-TYPE NATRIURETIC PEPTIDE (BEAKER) (test 109 pg/mL 0-100 thnm=018) CBC W/PLT COUNT & AUTO [id number] 06:32:00 Test Item Value Reference Range Comments WHITE BLOOD CELL COUNT (BEAKER) (test lmkc=340) 11.0 K/ L 3.5-10.5 RED BLOOD CELL COUNT (BEAKER) (test gqqt=839) 2.91 M/ L 4.63-6.08 HEMOGLOBIN (BEAKER) (test blqe=245) 8.5 GM/DL 13.7-17.5 HEMATOCRIT (BEAKER) (test qqcf=470) 25.7 % 40.1-51.0 MEAN CORPUSCULAR VOLUME (BEAKER) (test flki=254) 88.3 fL 79.0-92.2 MEAN CORPUSCULAR HEMOGLOBIN (BEAKER) (test 29.2 pg 25.7-32.2 ttbm=271) MEAN CORPUSCULAR HEMOGLOBIN CONC (BEAKER) (test 33.1 GM/DL 32.3-36.5 uiwp=960) RED CELL DISTRIBUTION WIDTH (BEAKER) (test 13.6 % 11.6-14.4 pibo=971) PLATELET COUNT (BEAKER) (test xvgw=610) 337 K/CU MM 150-450 MEAN PLATELET VOLUME (BEAKER) (test rqhz=010) 9.1 fL 9.4-12.4 NUCLEATED RED BLOOD CELLS (BEAKER) (test 0 /100 WBC 0-0 ffmd=052) NEUTROPHILS RELATIVE PERCENT (BEAKER) (test 66 % hooq=719) LYMPHOCYTES RELATIVE PERCENT (BEAKER) (test 11 % dizc=464) MONOCYTES RELATIVE PERCENT (BEAKER) (test 13 % vzjk=486) EOSINOPHILS RELATIVE PERCENT (BEAKER) (test 8 % enzv=091) BASOPHILS RELATIVE PERCENT (BEAKER) (test 1 % xqew=603) NEUTROPHILS ABSOLUTE COUNT (BEAKER) (test 7.21 K/ L 1.78-5.38 bbia=828) LYMPHOCYTES ABSOLUTE COUNT (BEAKER) (test 1.23 K/ L 1.32-3.57 qthf=808) MONOCYTES ABSOLUTE COUNT (BEAKER) (test 1.43 K/ L 0.30-0.82 wjfs=570) EOSINOPHILS ABSOLUTE COUNT (BEAKER) (test 0.89 K/ L 0.04-0.54 kswg=771) BASOPHILS ABSOLUTE COUNT (BEAKER) (test 0.07 K/ L 0.01-0.08 pdww=662) IMMATURE GRANULOCYTES-RELATIVE PERCENT (BEAKER) 2 % 0-1 (test nimc=8030) POCT-GLUCOSE [id number] 21:34:00 Test Item Value Reference Range Comments POC-GLUCOSE METER (BEAKER) 244 mg/dL 70-110 TESTED AT [address] (test oqlm=7523) [place] [address] POCT-GLUCOSE [id number] 17:02:00 Test Item Value Reference Range Comments POC-GLUCOSE METER (BEAKER) 192 mg/dL 70-110 TESTED AT [address] (test ihvk=1248) [place] [id number] POCT-GLUCOSE [id number] 11:45:00 Test Item Value Reference Range Comments POC-GLUCOSE METER (BEAKER) 219 mg/dL 70-110 TESTED AT [address] (test ablk=1534) [place] [id number] COMPREHENSIVE METABOLIC [id number] 08:04:00 Test Item Value Reference Range Comments TOTAL PROTEIN (BEAKER) 6.0 gm/dL 6.0-8.3 (test cpbu=514) ALBUMIN (BEAKER) (test 2.8 g/dL 3.5-5.0 nves=1352) ALKALINE PHOSPHATASE 334 U/L 40-150 (BEAKER) (test rxhr=417) BILIRUBIN TOTAL (BEAKER) 0.3 mg/dL 0.2-1.2 (test ovpo=828) SODIUM (BEAKER) (test 128 meq/L 136-145 rllx=762) POTASSIUM (BEAKER) (test 3.8 meq/L 3.5-5.1 wiho=197) CHLORIDE (BEAKER) (test 99 meq/L 98-107 rihq=606) CO2 (BEAKER) (test 19 meq/L 22-29 drau=993) BLOOD UREA NITROGEN 43 mg/dL 7-21 (BEAKER) (test vewn=177) CREATININE (BEAKER) (test 2.60 mg/dL 0.57-1.25 ugpq=275) GLUCOSE RANDOM (BEAKER) 214 mg/dL 70-105 (test zuhd=400) CALCIUM (BEAKER) (test 8.1 mg/dL 8.4-10.2 rekq=304) AST (SGOT) (BEAKER) (test 34 U/L 5-34 rhik=100) ALT (SGPT) (BEAKER) (test 38 U/L 6-55 ecye=102) EGFR (BEAKER) (test 24 mL/min/1.73 sq m ESTIMATED GFR IS NOT pksp=9750) ACCURATE CREATININE CLEARANCE IN PREDICTING GLOMERULAR FILTRATION RATE. ESTIMATED GFR IS NOT APPLICABLE FOR DIALYSIS PATIENTS. [id number] 07:58:00 Test Item Value Reference Range Comments PHOSPHORUS (BEAKER) (test tlrg=332) 3.5 mg/dL 2.3-4.7 [id number] 07:58:00 Test Item Value Reference Range Comments MAGNESIUM (BEAKER) (test wadj=292) 1.5 mg/dL 1.6-2.6 POCT-GLUCOSE [id number] 07:46:00 Test Item Value Reference Range Comments POC-GLUCOSE METER (BEAKER) 239 mg/dL 70-110 TESTED AT [facility] [address] [facility] (test hcre=3108) [facility] [address] CALCIUM, [id number] 07:07:00 Test Item Value Reference Range Comments CALCIUM IONIZED (BEAKER) (test mnaa=795) 0.99 mmol/L 1.12-1.27 PH, BLOOD (BEAKER) (test olsx=8308) 7.36 PROTHROMBIN [id number] 06:47:00 Test Item Value Reference Range Comments PROTIME (BEAKER) (test ujbr=762) 15.1 seconds 11.7-14.7 INR (BEAKER) (test eoqf=843) 1.2 <=5.9 RECOMMENDED COUMADIN/WARFARIN INR THERAPY RANGESSTANDARD DOSE: 2.0 - 3.0 Includes: PROPHYLAXIS forvenous thrombosis, systemic embolization; TREATMENT for venous thrombosis and/or pulmonary embolus.HIGH RISK: Target INR is 2.5-3.5 for patients with mechanical heart valves.CBC W/PLT COUNT & AUTO [id number] 06:46:00 Test Item Value Reference Range Comments WHITE BLOOD CELL COUNT (BEAKER) (test xgpi=756) 11.4 K/ L 3.5-10.5 RED BLOOD CELL COUNT (BEAKER) (test urwx=691) 3.00 M/ L 4.63-6.08 HEMOGLOBIN (BEAKER) (test fgsm=872) 8.6 GM/DL 13.7-17.5 HEMATOCRIT (BEAKER) (test ggpv=057) 26.6 % 40.1-51.0 MEAN CORPUSCULAR VOLUME (BEAKER) (test fyug=589) 88.7 fL 79.0-92.2 MEAN CORPUSCULAR HEMOGLOBIN (BEAKER) (test 28.7 pg 25.7-32.2 bbzl=665) MEAN CORPUSCULAR HEMOGLOBIN CONC (BEAKER) (test 32.3 GM/DL 32.3-36.5 rfon=302) RED CELL DISTRIBUTION WIDTH (BEAKER) (test 13.6 % 11.6-14.4 kruq=295) PLATELET COUNT (BEAKER) (test ekqu=910) 337 K/CU MM 150-450 MEAN PLATELET VOLUME (BEAKER) (test vjit=627) 9.3 fL 9.4-12.4 NUCLEATED RED BLOOD CELLS (BEAKER) (test 0 /100 WBC 0-0 pihl=421) NEUTROPHILS RELATIVE PERCENT (BEAKER) (test 65 % mucr=622) LYMPHOCYTES RELATIVE PERCENT (BEAKER) (test 12 % kcyd=989) MONOCYTES RELATIVE PERCENT (BEAKER) (test 12 % yjav=593) EOSINOPHILS RELATIVE PERCENT (BEAKER) (test 9 % lnea=761) BASOPHILS RELATIVE PERCENT (BEAKER) (test 0 % tggd=713) NEUTROPHILS ABSOLUTE COUNT (BEAKER) (test 7.45 K/ L 1.78-5.38 ttjr=104) LYMPHOCYTES ABSOLUTE COUNT (BEAKER) (test 1.38 K/ L 1.32-3.57 fixe=128) MONOCYTES ABSOLUTE COUNT (BEAKER) (test 1.41 K/ L 0.30-0.82 goxx=524) EOSINOPHILS ABSOLUTE COUNT (BEAKER) (test 0.99 K/ L 0.04-0.54 qlhg=736) BASOPHILS ABSOLUTE COUNT (BEAKER) (test 0.05 K/ L 0.01-0.08 bhus=005) IMMATURE GRANULOCYTES-RELATIVE PERCENT (BEAKER) 1 % 0-1 (test qiog=4759) POCT-GLUCOSE [id number] 20:40:00 Test Item Value Reference Range Comments POC-GLUCOSE METER (BEAKER) 311 mg/dL 70-110 TESTED AT [address] (test fiup=5986) [place] [address] RAPID DRUG SCREEN, [id number] 19:24:00 Test Item Value Reference Range Comments BARBITURATE URINE (BEAKER) (test bsuz=293) Negative Negative BENZODIAZEPINE SCREEN URINE (BEAKER) (test Negative Negative kqpy=888) COCAINE (METAB.) SCREEN (BEAKER) (test nmzh=7385) Negative Negative METHADONE SCREEN (BEAKER) (test sepp=5319) Negative Negative OPIATE SCREEN URINE (BEAKER) (test dbck=265) Negative Negative CANNABINOID SCREEN URINE (BEAKER) (test fpim=171) Negative Negative AMPH/METHAMPH SCREEN (BEAKER) (test wqai=2672) Negative Negative PHENCYCLIDINE SCREEN URINE (BEAKER) (test ygpr=908) Negative Negative OXYCODONE SCREEN URINE (BEAKER) (test tjha=3911) Negative Negative DRUG CUTOFF CONC.Cocaine 300 ng/mL Cannabinoid 50 ng/mL Benzodiazepine 200 ng/mLBarbiturate 200 ng/ mLPhencyclidine 25 ng/mLOpiate 300 ng/mLMethadone 300 ng/mLAmphetamine/ 1000 ng/mL MethamphetamineOxycodone 300 ng/mLThis assay provides an unconfirmed qualitative test result for the clinical management of patients in emergency situations. Chain of custody not maintained. Some rcvb-yxg-fdgefob medications, as well as adulterants, may cause inaccurate results. Clinical correlation should be applied. A more comprehensive drug screen or confirmation of a detected drug may be performed upon request.POCT-GLUCOSE [id number] 17:47:00 Test Item Value Reference Range Comments POC-GLUCOSE METER (BEAKER) 241 mg/dL 70-110 TESTED AT [address] (test qgwm=9777) [place] [id number] CBC W/PLT COUNT & AUTO [id number] 12:01:00 Test Item Value Reference Range Comments WHITE BLOOD CELL COUNT (BEAKER) (test tgln=368) 10.3 K/ L 3.5-10.5 RED BLOOD CELL COUNT (BEAKER) (test hgeh=491) 3.04 M/ L 4.63-6.08 HEMOGLOBIN (BEAKER) (test nlub=155) 8.7 GM/DL 13.7-17.5 HEMATOCRIT (BEAKER) (test zxby=847) 27.2 % 40.1-51.0 MEAN CORPUSCULAR VOLUME (BEAKER) (test quuv=859) 89.5 fL 79.0-92.2 MEAN CORPUSCULAR HEMOGLOBIN (BEAKER) (test 28.6 pg 25.7-32.2 vdvm=998) MEAN CORPUSCULAR HEMOGLOBIN CONC (BEAKER) (test 32.0 GM/DL 32.3-36.5 cawt=442) RED CELL DISTRIBUTION WIDTH (BEAKER) (test 13.6 % 11.6-14.4 zkjr=164) PLATELET COUNT (BEAKER) (test ugpt=702) 315 K/CU MM 150-450 MEAN PLATELET VOLUME (BEAKER) (test mvvk=582) 9.2 fL 9.4-12.4 NUCLEATED RED BLOOD CELLS (BEAKER) (test 0 /100 WBC 0-0 xzdy=543) (CELLAVISION MANUAL DIFF)2017-11-25 12:01:00 Test Item Value Reference Range Comments NEUTROPHILS - REL (CELLAVISION)(BEAKER) (test 75 % kwoi=0813) LYMPHOCYTES - REL (CELLAVISION)(BEAKER) (test 9 % xiog=7737) MONOCYTES - REL (CELLAVISION)(BEAKER) (test 9 % txpi=6541) EOSINOPHILS - REL (CELLAVISION)(BEAKER) (test 6 % kcta=8960) BASOPHILS - REL (CELLAVISION)(BEAKER) (test 1 % ubqq=2540) NEUTROPHILS - ABS (CELLAVISION)(BEAKER) (test 7.73 K/ul 1.78-5.38 espa=2642) LYMPHOCYTES - ABS (CELLAVISION)(BEAKER) (test 0.93 K/ul 1.32-3.57 cfke=1668) MONOCYTES - ABS (CELLAVISION)(BEAKER) (test 0.93 K/uL 0.30-0.82 muxu=5881) EOSINOPHILS - ABS (CELLAVISION)(BEAKER) (test 0.62 K/uL 0.04-0.54 aaqp=0419) BASOPHILS - ABS (CELLAVISION)(BEAKER) (test 0.10 K/uL 0.01-0.08 amhj=2387) TOTAL COUNTED (BEAKER) (test mlpb=6998) 100 RBC MORPHOLOGY (BEAKER) (test olbp=206) Normal WBC MORPHOLOGY (BEAKER) (test uyxl=761) Normal PLT MORPHOLOGY (BEAKER) (test tkkg=194) Normal ARTIFACT (CELLAVISION)(BEAKER) (test vblm=7468) Present PLATELET CONCENTRATION (CELLAVISION)(BEAKER) (test Adequate ekau=6861) Received comment: User comments: Slide comments:POCT-GLUCOSE [id number] 11: 34:00 Test Item Value Reference Range Comments POC-GLUCOSE METER (BEAKER) 295 mg/dL 70-110 TESTED AT [address] (test crcy=4293) [facility] [address] POCT-GLUCOSE [id number] 07:38:00 Test Item Value Reference Range Comments POC-GLUCOSE METER (BEAKER) 188 mg/dL 70-110 TESTED AT [address] (test kijn=7661) [facility] [address] CALCIUM, [id number] 06:26:00 Test Item Value Reference Range Comments CALCIUM IONIZED (BEAKER) (test inmu=752) 1.00 mmol/L 1.12-1.27 PH, BLOOD (BEAKER) (test pytq=8764) 7.35 COMPREHENSIVE METABOLIC [id number] 06:13:00 Test Item Value Reference Range Comments TOTAL PROTEIN (BEAKER) 6.0 gm/dL 6.0-8.3 (test owqq=711) ALBUMIN (BEAKER) (test 2.9 g/dL 3.5-5.0 dyue=3691) ALKALINE PHOSPHATASE 336 U/L 40-150 (BEAKER) (test jnse=064) BILIRUBIN TOTAL (BEAKER) 0.3 mg/dL 0.2-1.2 (test ongk=531) SODIUM (BEAKER) (test 129 meq/L 136-145 xgdw=271) POTASSIUM (BEAKER) (test 3.4 meq/L 3.5-5.1 impd=686) CHLORIDE (BEAKER) (test 101 meq/L 98-107 keba=719) CO2 (BEAKER) (test 19 meq/L 22-29 ykjw=919) BLOOD UREA NITROGEN 43 mg/dL 7-21 (BEAKER) (test mwyx=288) CREATININE (BEAKER) (test 2.84 mg/dL 0.57-1.25 pxgx=027) GLUCOSE RANDOM (BEAKER) 205 mg/dL 70-105 (test lveh=927) CALCIUM (BEAKER) (test 8.1 mg/dL 8.4-10.2 diax=810) AST (SGOT) (BEAKER) (test 37 U/L 5-34 avdq=107) ALT (SGPT) (BEAKER) (test 37 U/L 6-55 vswd=815) EGFR (BEAKER) (test 21 mL/min/1.73 sq m ESTIMATED GFR IS NOT ytpc=1198) ACCURATE CREATININE CLEARANCE IN PREDICTING GLOMERULAR FILTRATION RATE. ESTIMATED GFR IS NOT APPLICABLE FOR DIALYSIS PATIENTS. [id number] 06:12:00 Test Item Value Reference Range Comments PHOSPHORUS (BEAKER) (test rero=678) 3.6 mg/dL 2.3-4.7 [id number] 06:12:00 Test Item Value Reference Range Comments MAGNESIUM (BEAKER) (test qoyy=838) 1.6 mg/dL 1.6-2.6 PROTHROMBIN [id number] 05:33:00 Test Item Value Reference Range Comments PROTIME (BEAKER) (test uvdk=824) 14.0 seconds 11.7-14.7 INR (BEAKER) (test peqf=678) 1.1 <=5.9 RECOMMENDED COUMADIN/WARFARIN INR THERAPY RANGESSTANDARD DOSE: 2.0 - 3.0 Includes: PROPHYLAXIS forvenous thrombosis, systemic embolization; TREATMENT for venous thrombosis and/or pulmonary embolus.HIGH RISK: Target INR is 2.5-3.5 for patients with mechanical heart valves.POCT-GLUCOSE [id number] 17:32:00 Test Item Value Reference Range Comments POC-GLUCOSE METER (BEAKER) 144 mg/dL 70-110 TESTED AT [address] (test zvbx=4131) [facility] [address] URINE PROTEIN ELECTROPHORESIS, 24 [id number] 14:15:00 Test Item Value Reference Range Comments PROTEIN, 24HR URINE (BEAKER) 2992 mg/24hr 0-300 (test ijtk=6710) VOLUME, TOTAL (BEAKER) (test 1700 ml soyw=1761) ALBUMIN, 24HR URINE (BEAKER) 30.3 % (test kogy=4332) GLOBULIN, 24HR URINE 69.7 % (BEAKER) (test mlwk=9711) UPEP, ID (BEAKER) (test Spillage of large amounts of wfne=7019) globulin fractions may mask underlying monoclonal proteins; urine MATEO ordered and results pending. PROTEIN, URINE (BEAKER) 176 mg/dL 0-14 (test qooz=5478) [facility] PATH[facility]-2204 Mary Robledo MD (BEAKER) (test plgw=8208) (electronic signature) POCT-GLUCOSE [id number] 12:04:00 Test Item Value Reference Range Comments POC-GLUCOSE METER (BEAKER) 155 mg/dL 70-110 TESTED AT [address] (test ijmw=7862) [facility] [address] CBC W/PLT COUNT & AUTO [id number] 08:49:00 Test Item Value Reference Range Comments WHITE BLOOD CELL COUNT (BEAKER) (test jrjr=584) 10.9 K/ L 3.5-10.5 RED BLOOD CELL COUNT (BEAKER) (test wukk=354) 2.96 M/ L 4.63-6.08 HEMOGLOBIN (BEAKER) (test opws=588) 8.6 GM/DL 13.7-17.5 HEMATOCRIT (BEAKER) (test hkzr=677) 26.2 % 40.1-51.0 MEAN CORPUSCULAR VOLUME (BEAKER) (test msoh=695) 88.5 fL 79.0-92.2 MEAN CORPUSCULAR HEMOGLOBIN (BEAKER) (test 29.1 pg 25.7-32.2 prrn=308) MEAN CORPUSCULAR HEMOGLOBIN CONC (BEAKER) (test 32.8 GM/DL 32.3-36.5 zezk=566) RED CELL DISTRIBUTION WIDTH (BEAKER) (test 13.5 % 11.6-14.4 rahi=452) PLATELET COUNT (BEAKER) (test lmsi=191) 298 K/CU MM 150-450 MEAN PLATELET VOLUME (BEAKER) (test ztip=599) 9.2 fL 9.4-12.4 NUCLEATED RED BLOOD CELLS (BEAKER) (test 0 /100 WBC 0-0 ximi=293) (CELLAVISION MANUAL DIFF)2017-11-24 08:49:00 Test Item Value Reference Range Comments NEUTROPHILS - REL (CELLAVISION)(BEAKER) (test 78 % pppv=5795) LYMPHOCYTES - REL (CELLAVISION)(BEAKER) (test 7 % jrtp=2829) MONOCYTES - REL (CELLAVISION)(BEAKER) (test 11 % irrm=6453) EOSINOPHILS - REL (CELLAVISION)(BEAKER) (test 4 % gmrc=2310) NEUTROPHILS - ABS (CELLAVISION)(BEAKER) (test 8.50 K/ul 1.78-5.38 iuqh=8331) LYMPHOCYTES - ABS (CELLAVISION)(BEAKER) (test 0.76 K/ul 1.32-3.57 avfy=3839) MONOCYTES - ABS (CELLAVISION)(BEAKER) (test 1.20 K/uL 0.30-0.82 xfet=4839) EOSINOPHILS - ABS (CELLAVISION)(BEAKER) (test 0.44 K/uL 0.04-0.54 ifmr=6440) TOTAL COUNTED (BEAKER) (test jjig=8092) 100 RBC MORPHOLOGY (BEAKER) (test inzs=824) Normal WBC MORPHOLOGY (BEAKER) (test gmjm=877) Normal PLT MORPHOLOGY (BEAKER) (test jnfo=830) Normal ARTIFACT (CELLAVISION)(BEAKER) (test gkbv=9966) Present PLATELET CONCENTRATION (CELLAVISION)(BEAKER) (test Adequate afdc=7432) Received comment: User comments: Slide comments:POCT-GLUCOSE [id number] 08: 16:00 Test Item Value Reference Range Comments POC-GLUCOSE METER (BEAKER) 166 mg/dL 70-110 TESTED AT [facility] [address] [facility] (test liek=3917) [facility] [address] CALCIUM, [id number] 06:10:00 Test Item Value Reference Range Comments CALCIUM IONIZED (BEAKER) (test yliq=931) 0.98 mmol/L 1.12-1.27 PH, BLOOD (BEAKER) (test ljqx=9584) 7.40 BASIC METABOLIC [id number] 05:06:00 Test Item Value Reference Range Comments SODIUM (BEAKER) (test 131 meq/L 136-145 opyj=651) POTASSIUM (BEAKER) (test 3.6 meq/L 3.5-5.1 oxjs=432) CHLORIDE (BEAKER) (test 100 meq/L 98-107 eclg=087) CO2 (BEAKER) (test 21 meq/L 22-29 ujuu=451) BLOOD UREA NITROGEN 39 mg/dL 7-21 (BEAKER) (test lrdn=963) CREATININE (BEAKER) (test 2.74 mg/dL 0.57-1.25 dnbm=084) GLUCOSE RANDOM (BEAKER) 158 mg/dL 70-105 (test hnpf=778) CALCIUM (BEAKER) (test 8.1 mg/dL 8.4-10.2 xzcz=835) EGFR (BEAKER) (test 22 mL/min/1.73 sq m ESTIMATED GFR IS NOT kezf=2952) ACCURATE CREATININE CLEARANCE IN PREDICTING GLOMERULAR FILTRATION RATE. ESTIMATED GFR IS NOT APPLICABLE FOR DIALYSIS PATIENTS. [id number] 05:03:00 Test Item Value Reference Range Comments PHOSPHORUS (BEAKER) (test qqpj=731) 3.4 mg/dL 2.3-4.7 [id number] 05:03:00 Test Item Value Reference Range Comments MAGNESIUM (BEAKER) (test ksyn=351) 1.6 mg/dL 1.6-2.6 POCT-GLUCOSE [id number] 21:25:00 Test Item Value Reference Range Comments POC-GLUCOSE METER (BEAKER) 252 mg/dL 70-110 TESTED AT [address] (test akww=5546) [facility] [address] POCT-GLUCOSE [id number] 17:44:00 Test Item Value Reference Range Comments POC-GLUCOSE METER (BEAKER) 127 mg/dL 70-110 TESTED AT [address] (test ppzb=3023) [facility] [address] POCT-GLUCOSE [id number] 11:31:00 Test Item Value Reference Range Comments POC-GLUCOSE METER (BEAKER) 221 mg/dL 70-110 TESTED AT [facility] [address] [facility] (test hvir=5640) [facility] [address] BLOOD [id number] 11:00:00 Test Item Value Reference Range Comments CULTURE (BEAKER) (test wgoj=7159) No growth in 5 days POCT-GLUCOSE [id number] 08:08:00 Test Item Value Reference Range Comments POC-GLUCOSE METER (BEAKER) 118 mg/dL 70-110 TESTED AT [address] (test zxvy=6900) [facility] [address] COMPREHENSIVE METABOLIC [id number] 06:57:00 Test Item Value Reference Range Comments TOTAL PROTEIN (BEAKER) 5.9 gm/dL 6.0-8.3 (test iksx=621) ALBUMIN (BEAKER) (test 2.9 g/dL 3.5-5.0 iwft=9230) ALKALINE PHOSPHATASE 276 U/L 40-150 (BEAKER) (test buls=068) BILIRUBIN TOTAL (BEAKER) 0.5 mg/dL 0.2-1.2 (test rnar=627) SODIUM (BEAKER) (test 130 meq/L 136-145 yfrc=977) POTASSIUM (BEAKER) (test 3.9 meq/L 3.5-5.1 uect=798) CHLORIDE (BEAKER) (test 99 meq/L 98-107 mymd=585) CO2 (BEAKER) (test 20 meq/L 22-29 qazi=491) BLOOD UREA NITROGEN 35 mg/dL 7-21 (BEAKER) (test atex=841) CREATININE (BEAKER) (test 2.39 mg/dL 0.57-1.25 dupj=303) GLUCOSE RANDOM (BEAKER) 116 mg/dL 70-105 (test xnfj=730) CALCIUM (BEAKER) (test 8.0 mg/dL 8.4-10.2 ltxc=027) AST (SGOT) (BEAKER) (test 36 U/L 5-34 jeza=455) ALT (SGPT) (BEAKER) (test 28 U/L 6-55 bkjw=295) EGFR (BEAKER) (test 26 mL/min/1.73 sq m ESTIMATED GFR IS NOT jkvn=4479) ACCURATE CREATININE CLEARANCE IN PREDICTING GLOMERULAR FILTRATION RATE. ESTIMATED GFR IS NOT APPLICABLE FOR DIALYSIS PATIENTS. [id number] 05:44:00 Test Item Value Reference Range Comments PHOSPHORUS (BEAKER) (test jhpq=042) 3.2 mg/dL 2.3-4.7 [id number] 05:44:00 Test Item Value Reference Range Comments MAGNESIUM (BEAKER) (test ikww=302) 1.7 mg/dL 1.6-2.6 PROTHROMBIN [id number] 04:53:00 Test Item Value Reference Range Comments PROTIME (BEAKER) (test ltnn=473) 15.5 seconds 11.7-14.7 INR (BEAKER) (test wgfq=779) 1.2 <=5.9 RECOMMENDED COUMADIN/WARFARIN INR THERAPY RANGESSTANDARD DOSE: 2.0 - 3.0 Includes: PROPHYLAXIS forvenous thrombosis, systemic embolization; TREATMENT for venous thrombosis and/or pulmonary embolus.HIGH RISK: Target INR is 2.5-3.5 for patients with mechanical heart valves.CBC W/PLT COUNT & AUTO [id number] 04:43:00 Test Item Value Reference Range Comments WHITE BLOOD CELL COUNT (BEAKER) (test jpkd=043) 11.2 K/ L 3.5-10.5 RED BLOOD CELL COUNT (BEAKER) (test hunt=671) 3.22 M/ L 4.63-6.08 HEMOGLOBIN (BEAKER) (test mexb=400) 9.2 GM/DL 13.7-17.5 HEMATOCRIT (BEAKER) (test zzbb=463) 28.9 % 40.1-51.0 MEAN CORPUSCULAR VOLUME (BEAKER) (test zmaf=669) 89.8 fL 79.0-92.2 MEAN CORPUSCULAR HEMOGLOBIN (BEAKER) (test 28.6 pg 25.7-32.2 slbv=914) MEAN CORPUSCULAR HEMOGLOBIN CONC (BEAKER) (test 31.8 GM/DL 32.3-36.5 vinj=297) RED CELL DISTRIBUTION WIDTH (BEAKER) (test 13.3 % 11.6-14.4 jkbx=924) PLATELET COUNT (BEAKER) (test ghjv=214) 327 K/CU MM 150-450 MEAN PLATELET VOLUME (BEAKER) (test rdtp=089) 9.4 fL 9.4-12.4 NUCLEATED RED BLOOD CELLS (BEAKER) (test 0 /100 WBC 0-0 secc=382) NEUTROPHILS RELATIVE PERCENT (BEAKER) (test 68 % yxrw=817) LYMPHOCYTES RELATIVE PERCENT (BEAKER) (test 11 % bboj=520) MONOCYTES RELATIVE PERCENT (BEAKER) (test 13 % bwhd=744) EOSINOPHILS RELATIVE PERCENT (BEAKER) (test 7 % lbxa=522) BASOPHILS RELATIVE PERCENT (BEAKER) (test 0 % kwhj=359) NEUTROPHILS ABSOLUTE COUNT (BEAKER) (test 7.59 K/ L 1.78-5.38 strx=665) LYMPHOCYTES ABSOLUTE COUNT (BEAKER) (test 1.23 K/ L 1.32-3.57 oftt=775) MONOCYTES ABSOLUTE COUNT (BEAKER) (test 1.49 K/ L 0.30-0.82 atlz=918) EOSINOPHILS ABSOLUTE COUNT (BEAKER) (test 0.78 K/ L 0.04-0.54 xguq=544) BASOPHILS ABSOLUTE COUNT (BEAKER) (test 0.04 K/ L 0.01-0.08 dacu=491) IMMATURE GRANULOCYTES-RELATIVE PERCENT (BEAKER) 0 % 0-1 (test swcz=1770) CALCIUM, [id number] 04:27:00 Test Item Value Reference Range Comments CALCIUM IONIZED (BEAKER) (test ismf=740) 0.97 mmol/L 1.12-1.27 PH, BLOOD (BEAKER) (test yhpn=7551) 7.42 PROTEIN, 24 HOUR [id number] 02:50:00 Test Item Value Reference Range Comments PROTEIN, 24HR URINE (BEAKER) (test jqgj=1961) 2992 mg/24hr 0-300 VOLUME, TOTAL (BEAKER) (test zpel=7832) 1700 ml PROTEIN, URINE (BEAKER) (test zaqe=4987) 176 mg/dL 0-14 POCT-GLUCOSE [id number] 21:39:00 Test Item Value Reference Range Comments POC-GLUCOSE METER (BEAKER) 194 mg/dL 70-110 TESTED AT [address] (test xfil=4028) [facility] [address] POCT-GLUCOSE [id number] 17:08:00 Test Item Value Reference Range Comments POC-GLUCOSE METER (BEAKER) 183 mg/dL 70-110 TESTED AT [address] (test eajo=0727) [facility] [address] POCT-GLUCOSE [id number] 12:10:00 Test Item Value Reference Range Comments POC-GLUCOSE METER (BEAKER) 157 mg/dL 70-110 TESTED AT [facility] [address] [facility] (test aetq=7634) [facility] [address] POCT-GLUCOSE [id number] 07:53:00 Test Item Value Reference Range Comments POC-GLUCOSE METER (BEAKER) 132 mg/dL 70-110 TESTED AT [place] [id number] [facility] (test mbvk=9966) [facility] [address] CALCIUM, [id number] 07:44:00 Test Item Value Reference Range Comments CALCIUM IONIZED (BEAKER) (test jbtc=149) 0.94 mmol/L 1.12-1.27 PH, BLOOD (BEAKER) (test eafw=3642) 7.42 COMPREHENSIVE METABOLIC [id number] 07:05:00 Test Item Value Reference Range Comments TOTAL PROTEIN (BEAKER) 5.9 gm/dL 6.0-8.3 (test spyt=636) ALBUMIN (BEAKER) (test 2.9 g/dL 3.5-5.0 yodr=8080) ALKALINE PHOSPHATASE 216 U/L 40-150 (BEAKER) (test pilr=102) BILIRUBIN TOTAL (BEAKER) 0.6 mg/dL 0.2-1.2 (test vfnd=584) SODIUM (BEAKER) (test 132 meq/L 136-145 prla=367) POTASSIUM (BEAKER) (test 3.6 meq/L 3.5-5.1 rcsx=779) CHLORIDE (BEAKER) (test 97 meq/L 98-107 vkeo=376) CO2 (BEAKER) (test 24 meq/L 22-29 zisu=766) BLOOD UREA NITROGEN 36 mg/dL 7-21 (BEAKER) (test wsvb=470) CREATININE (BEAKER) (test 2.43 mg/dL 0.57-1.25 vswi=649) GLUCOSE RANDOM (BEAKER) 113 mg/dL 70-105 (test xkxm=301) CALCIUM (BEAKER) (test 7.9 mg/dL 8.4-10.2 rmfi=488) AST (SGOT) (BEAKER) (test 29 U/L 5-34 klia=088) ALT (SGPT) (BEAKER) (test 25 U/L 6-55 oftn=768) EGFR (BEAKER) (test 26 mL/min/1.73 sq m ESTIMATED GFR IS NOT mxss=6222) ACCURATE CREATININE CLEARANCE IN PREDICTING GLOMERULAR FILTRATION RATE. ESTIMATED GFR IS NOT APPLICABLE FOR DIALYSIS PATIENTS. [id number] 07:04:00 Test Item Value Reference Range Comments PHOSPHORUS (BEAKER) (test rgno=122) 3.0 mg/dL 2.3-4.7 [id number] 07:04:00 Test Item Value Reference Range Comments MAGNESIUM (BEAKER) (test mbta=296) 1.7 mg/dL 1.6-2.6 CBC W/PLT COUNT & AUTO [id number] 06:36:00 Test Item Value Reference Range Comments WHITE BLOOD CELL COUNT (BEAKER) (test fsuj=439) 12.1 K/ L 3.5-10.5 RED BLOOD CELL COUNT (BEAKER) (test mzzm=237) 3.30 M/ L 4.63-6.08 HEMOGLOBIN (BEAKER) (test urnn=985) 9.4 GM/DL 13.7-17.5 HEMATOCRIT (BEAKER) (test rfmk=522) 29.3 % 40.1-51.0 MEAN CORPUSCULAR VOLUME (BEAKER) (test ejjq=438) 88.8 fL 79.0-92.2 MEAN CORPUSCULAR HEMOGLOBIN (BEAKER) (test 28.5 pg 25.7-32.2 iqsq=778) MEAN CORPUSCULAR HEMOGLOBIN CONC (BEAKER) (test 32.1 GM/DL 32.3-36.5 zwkz=548) RED CELL DISTRIBUTION WIDTH (BEAKER) (test 13.7 % 11.6-14.4 dwei=875) PLATELET COUNT (BEAKER) (test trrh=661) 310 K/CU MM 150-450 MEAN PLATELET VOLUME (BEAKER) (test lyhl=043) 9.7 fL 9.4-12.4 NUCLEATED RED BLOOD CELLS (BEAKER) (test 0 /100 WBC 0-0 ffba=800) NEUTROPHILS RELATIVE PERCENT (BEAKER) (test 69 % sxwi=224) LYMPHOCYTES RELATIVE PERCENT (BEAKER) (test 12 % heqf=452) MONOCYTES RELATIVE PERCENT (BEAKER) (test 12 % vach=404) EOSINOPHILS RELATIVE PERCENT (BEAKER) (test 7 % wqfq=771) BASOPHILS RELATIVE PERCENT (BEAKER) (test 0 % qmdx=845) NEUTROPHILS ABSOLUTE COUNT (BEAKER) (test 8.28 K/ L 1.78-5.38 nhpw=298) LYMPHOCYTES ABSOLUTE COUNT (BEAKER) (test 1.40 K/ L 1.32-3.57 yskq=491) MONOCYTES ABSOLUTE COUNT (BEAKER) (test 1.43 K/ L 0.30-0.82 oqml=250) EOSINOPHILS ABSOLUTE COUNT (BEAKER) (test 0.81 K/ L 0.04-0.54 iciq=658) BASOPHILS ABSOLUTE COUNT (BEAKER) (test 0.04 K/ L 0.01-0.08 tuua=229) IMMATURE GRANULOCYTES-RELATIVE PERCENT (BEAKER) 1 % 0-1 (test nken=4884) POCT-GLUCOSE [id number] 21:45:00 Test Item Value Reference Range Comments POC-GLUCOSE METER (BEAKER) 152 mg/dL 70-110 TESTED AT [facility] [address] [facility] (test ihbc=7864) [facility] [address] URINALYSIS W/ REFLEX URINE [id number] 19:43:00 Test Item Value Reference Range Comments COLOR (BEAKER) (test maqu=918) Light Yellow CLARITY (BEAKER) (test cnlk=816) Clear SPECIFIC GRAVITY UA (BEAKER) (test cymg=734) 1.005 1.001-1.035 PH UA (BEAKER) (test nsrl=491) 8.5 5.0-8.0 PROTEIN UA (BEAKER) (test zdqe=792) 200 mg/dL Negative GLUCOSE UA (BEAKER) (test zxyc=414) 500 mg/dL Negative KETONES UA (BEAKER) (test tevr=354) Negative Negative BILIRUBIN UA (BEAKER) (test aeom=501) Negative Negative BLOOD UA (BEAKER) (test hthw=720) Trace Negative NITRITE UA (BEAKER) (test okhv=787) Negative Negative LEUKOCYTE ESTERASE UA (BEAKER) (test pong=259) Negative Negative UROBILINOGEN UA (BEAKER) (test gcii=904) 0.2 mg/dL 0.2-1.0 RBC UA (BEAKER) (test keuf=340) 0 /HPF WBC UA (BEAKER) (test kxwn=649) 1 /HPF BACTERIA (BEAKER) (test qnhp=907) Rare SQUAMOUS EPITHELIAL (BEAKER) (test dodl=290) < /HPF SOURCE(BEAKER) (test dnqp=0369) POCT-GLUCOSE [id number] 16:59:00 Test Item Value Reference Range Comments POC-GLUCOSE METER (BEAKER) 184 mg/dL 70-110 TESTED AT [facility] [address] (test kasr=1386) [facility] [address] URINE PROTEIN ELECTROPHORESIS, [id number] 16:32:00 Test Item Value Reference Range Comments PROTEIN, URINE (BEAKER) (test 101 mg/dL 0-14 eodd=1156) ALBUMIN URINE ELP (BEAKER) 45.1 % (test lble=1457) GAMMA GLOBULIN URINE (BEAKER) 54.9 % (test hwpb=8030) UPEP, ID-438 (BEAKER) (test No monoclonal bands detected. eacf=2848) [id number] ([facility] Mary Robledo MD (test sreu=1776) (electronic signature) PROTEIN ELECTROPHORESIS, [id number] 16:02:00 Test Item Value Reference Range Comments ALBUMIN FRACTION (BEAKER) 2.5 g/dL 3.5-5.5 (test afij=964) ALPHA 1 FRACTION (BEAKER) 0.3 g/dL 0.2-0.4 (test spet=059) ALPHA 2 FRACTION (BEAKER) 0.7 g/dL 0.5-0.9 (test gmgt=733) BETA FRACTION (BEAKER) (test 0.8 g/dL 0.6-1.1 yxaq=329) GAMMA GLOBULIN FRACTION 1.1 g/dL 0.7-1.7 (BEAKER) (test uozo=053) INTERPRETATION-119 (BEAKER) Decreased albumin with (test trvp=7701) concurrent relative increases in all globulin fractions. No monoclonal bands detected. [id number] (BEAKER) Mary Robledo MD (test cyfk=6552) (electronic signature) PROTEIN TOTAL SERUM, SPEP 5.3 gm/dL 6.0-8.3 (BEAKER) (test uqbb=7819) POCT-GLUCOSE [id number] 11:58:00 Test Item Value Reference Range Comments POC-GLUCOSE METER (BEAKER) 197 mg/dL 70-110 TESTED AT [facility] [address] [facility] (test mnjj=3526) [facility] [address] POCT-GLUCOSE [id number] 08:42:00 Test Item Value Reference Range Comments POC-GLUCOSE METER (BEAKER) 119 mg/dL 70-110 TESTED AT [facility] [address] [facility] (test fcaq=9819) [facility] [address] HEMOGLOBIN [id number] 08:19:00 Test Item Value Reference Range Comments HEMOGLOBIN A1C (BEAKER) (test dpsj=109) 5.9 % 4.3-6.1 COMPREHENSIVE METABOLIC [id number] 05:26:00 Test Item Value Reference Range Comments TOTAL PROTEIN (BEAKER) 5.8 gm/dL 6.0-8.3 (test awre=066) ALBUMIN (BEAKER) (test 2.9 g/dL 3.5-5.0 gejg=5419) ALKALINE PHOSPHATASE 132 U/L 40-150 (BEAKER) (test qjmi=964) BILIRUBIN TOTAL (BEAKER) 0.5 mg/dL 0.2-1.2 (test vyjz=186) SODIUM (BEAKER) (test 133 meq/L 136-145 rkqb=829) POTASSIUM (BEAKER) (test 3.5 meq/L 3.5-5.1 tnac=299) CHLORIDE (BEAKER) (test 97 meq/L 98-107 azmf=105) CO2 (BEAKER) (test 27 meq/L 22-29 bjrw=367) BLOOD UREA NITROGEN 32 mg/dL 7-21 (BEAKER) (test tmln=441) CREATININE (BEAKER) (test 2.26 mg/dL 0.57-1.25 ozmf=513) GLUCOSE RANDOM (BEAKER) 103 mg/dL 70-105 (test ppxv=800) CALCIUM (BEAKER) (test 7.9 mg/dL 8.4-10.2 wsro=680) AST (SGOT) (BEAKER) (test 24 U/L 5-34 amne=062) ALT (SGPT) (BEAKER) (test 18 U/L 6-55 fixx=733) EGFR (BEAKER) (test 28 mL/min/1.73 sq m ESTIMATED GFR IS NOT doyr=8172) ACCURATE CREATININE CLEARANCE IN PREDICTING GLOMERULAR FILTRATION RATE. ESTIMATED GFR IS NOT APPLICABLE FOR DIALYSIS PATIENTS. [id number] 04:54:00 Test Item Value Reference Range Comments PHOSPHORUS (BEAKER) (test chej=877) 2.8 mg/dL 2.3-4.7 [id number] 04:54:00 Test Item Value Reference Range Comments MAGNESIUM (BEAKER) (test awnu=288) 1.6 mg/dL 1.6-2.6 CBC W/PLT COUNT & AUTO [id number] 04:30:00 Test Item Value Reference Range Comments WHITE BLOOD CELL COUNT (BEAKER) (test xmyh=141) 13.5 K/ L 3.5-10.5 RED BLOOD CELL COUNT (BEAKER) (test ygiz=141) 3.33 M/ L 4.63-6.08 HEMOGLOBIN (BEAKER) (test tvyi=138) 9.6 GM/DL 13.7-17.5 HEMATOCRIT (BEAKER) (test vprk=545) 29.5 % 40.1-51.0 MEAN CORPUSCULAR VOLUME (BEAKER) (test odqw=490) 88.6 fL 79.0-92.2 MEAN CORPUSCULAR HEMOGLOBIN (BEAKER) (test 28.8 pg 25.7-32.2 zjyl=535) MEAN CORPUSCULAR HEMOGLOBIN CONC (BEAKER) (test 32.5 GM/DL 32.3-36.5 lqeu=357) RED CELL DISTRIBUTION WIDTH (BEAKER) (test 14.0 % 11.6-14.4 tbge=175) PLATELET COUNT (BEAKER) (test unxo=930) 277 K/CU MM 150-450 MEAN PLATELET VOLUME (BEAKER) (test gwkd=496) 9.2 fL 9.4-12.4 NUCLEATED RED BLOOD CELLS (BEAKER) (test 0 /100 WBC 0-0 wmoy=203) NEUTROPHILS RELATIVE PERCENT (BEAKER) (test 74 % kqgp=269) LYMPHOCYTES RELATIVE PERCENT (BEAKER) (test 9 % hoid=597) MONOCYTES RELATIVE PERCENT (BEAKER) (test 12 % fzas=008) EOSINOPHILS RELATIVE PERCENT (BEAKER) (test 5 % vbte=973) BASOPHILS RELATIVE PERCENT (BEAKER) (test 0 % yqet=831) NEUTROPHILS ABSOLUTE COUNT (BEAKER) (test 9.96 K/ L 1.78-5.38 xsdl=063) LYMPHOCYTES ABSOLUTE COUNT (BEAKER) (test 1.25 K/ L 1.32-3.57 ejcw=594) MONOCYTES ABSOLUTE COUNT (BEAKER) (test 1.58 K/ L 0.30-0.82 sblk=404) EOSINOPHILS ABSOLUTE COUNT (BEAKER) (test 0.63 K/ L 0.04-0.54 kozy=197) BASOPHILS ABSOLUTE COUNT (BEAKER) (test 0.05 K/ L 0.01-0.08 uwze=120) IMMATURE GRANULOCYTES-RELATIVE PERCENT (BEAKER) 1 % 0-1 (test cvyh=5824) CALCIUM, [id number] 04:27:00 Test Item Value Reference Range Comments CALCIUM IONIZED (BEAKER) (test hgxq=160) 0.94 mmol/L 1.12-1.27 PH, BLOOD (BEAKER) (test rjgk=8174) 7.41 POCT-GLUCOSE [id number] 21:41:00 Test Item Value Reference Range Comments POC-GLUCOSE METER (BEAKER) 225 mg/dL 70-110 TESTED AT [facility] [address] [facility] (test ckib=8015) [facility] [address] (CELLAVISION MANUAL DIFF)[id number] 16:57:00 Test Item Value Reference Range Comments NEUTROPHILS - REL (CELLAVISION)(BEAKER) (test 83 % tsmr=0367) LYMPHOCYTES - REL (CELLAVISION)(BEAKER) (test 7 % ilei=8529) MONOCYTES - REL (CELLAVISION)(BEAKER) (test 8 % xcne=8191) EOSINOPHILS - REL (CELLAVISION)(BEAKER) (test 2 % bxzp=3446) NEUTROPHILS - ABS (CELLAVISION)(BEAKER) (test 8.38 K/ul 1.78-5.38 rduu=7033) LYMPHOCYTES - ABS (CELLAVISION)(BEAKER) (test 0.71 K/ul 1.32-3.57 qvsx=8488) MONOCYTES - ABS (CELLAVISION)(BEAKER) (test 0.81 K/uL 0.30-0.82 zimn=6238) EOSINOPHILS - ABS (CELLAVISION)(BEAKER) (test 0.20 K/uL 0.04-0.54 jknx=3151) TOTAL COUNTED (BEAKER) (test bcou=0520) 100 MANUAL NRBC PER 100 CELLS (BEAKER) (test 1 /100 WBC 0-0 taqf=0642) SMUDGE CELLS (BEAKER) (test ytxt=5525) Present GIANT PLATELETS (BEAKER) (test dkhb=019) Present HYPOCHROMIA (BEAKER) (test vliy=811) 1+ few ANISOCYTOSIS (BEAKER) (test mxuj=135) 1+ few POIKILOCYTES (BEAKER) (test bsdw=488) 1+ few PLATELET CONCENTRATION (CELLAVISION)(BEAKER) Adequate (test wvfb=3676) Received comment: User comments: Slide comments:POCT-GLUCOSE [id number] 16: 37:00 Test Item Value Reference Range Comments POC-GLUCOSE METER (BEAKER) 190 mg/dL 70-110 TESTED AT [facility] [address] [facility] (test jbxd=8162) [facility] [address] PET, CARDIAC PERFUSION MULTIPLE STUDIES, REST AND [id number] 14:59: 00Reason for exam:->chest painFINAL REPORT PROCEDURE: Rest/Stress MYOCARDIAL PERFUSION PET with regadenoson\\XA9\\ CPT CODE: 25108 INDICATION: Chest pain, risk factors for CAD [...] of 0.4 mg of regadenoson. Radiotracer was edfgmnjt52 seconds after start of stress. Heart rate [...] Extracardiactracer distribution is normal. 6. No previous [facility] study for comparison. NONINVASIVE RISK STRATIFICATION: The above findings are considered intermediate risk (1% to 3% annual mortality rate) based on the following criterion: - Mild/moderate resting left ventricular dysfunction (LVEF 35% to 49%)- Stress-induced moderate perfusion defect without LV dilation or increasedlung intake (thallium-201)([facility] 2012;59(9):857-27.) Signed: Venancio Saenz MDRepputnam county [facility] hospital Verified Date/Time: 11/20/2017 14:59:03 Reading Location: [address] Reading Room POCT-GLUCOSE [id number] 12:45:00 Test Item Value Reference Range Comments POC-GLUCOSE METER (i-nexus) 138 mg/dL 70-110 TESTED AT [facility] [address] [place] [address] (test xxnr=7848) [facility] [address] LACTIC ACID, ARTERIAL, WHOLE [id number] 10:51:00 Test Item Value Reference Range Comments LACTATE BLOOD ARTERIAL (2) (i-nexus) (test 1.1 mmol/L 0.5-2.2 uqre=3773) Effective 09/27/2015: Units/Reference Range ChangeNew: 0.5-2.2 mmol/L Previous: 5 -20 mg/dLANTI-NUCLEAR ANTIBODY (YOLA)2017-11-20 10:51:00 Test Item Value Reference Range Comments ANTI-NUCLEAR ANTIBODY (YOLA) (i-nexus) (test Negative Negative npvs=320) VITAMIN D, [id number] 06:31:00 Test Item Value Reference Range Comments VITAMIN D 25-OH (BEAKER) (test rekc=0010) 14.3 ng/mL 6.6-49.9 Effective 03/05/2017: Reference Range ChangeNew: 6.6-49.9 ng/mL Previous: 13.0 -47.8 ng/mLRecommended Vitamin D Target Range: 30.0-40.0 ng/mLTSH/FREE T4 IF [id number] 06:31:00 Test Item Value Reference Range Comments THYROID STIMULATING HORMONE (BEAKER) (test 1.55 uIU/mL 0.35-4.94 dkai=933) POCT-GLUCOSE [id number] 06:22:00 Test Item Value Reference Range Comments POC-GLUCOSE METER (BEAKER) 132 mg/dL 70-110 TESTED AT [facility] [address] [facility] (test bzkq=7282) [facility] [address] HEPATITIS PANEL, [id number] 06:07:00 Test Item Value Reference Range Comments HEPATITIS A IGM ANTIBODY (BEAKER) (test Nonreactive Nonreactive szgk=511) HEPATITIS B CORE IGM ANTIBODY (BEAKER) (test Nonreactive Nonreactive bnil=672) HEPATITIS C ANTIBODY (BEAKER) (test pzgf=275) Nonreactive Nonreactive HEPATITIS B SURFACE ANTIGEN (2) (BEAKER) (test Nonreactive Nonreactive azqw=8585) COMPLEMENT COMPONENT [id number] 05:52:00 Test Item Value Reference Range Comments C4 COMPLEMENT (BEAKER) (test yxuz=498) 23 mg/dL 15-57 COMPLEMENT COMPONENT [id number] 05:52:00 Test Item Value Reference Range Comments C3 COMPLEMENT (BEAKER) (test qftt=906) 82 mg/dL 82-193 PTH, [id number] 05:43:00 Test Item Value Reference Range Comments PARATHYROID HORMONE INTACT (BEAKER) (test 247.5 pg/mL 8.5-72.5 papf=204) URIC [id number] 05:39:00 Test Item Value Reference Range Comments URIC ACID (BEAKER) (test mzwo=956) 3.9 mg/dL 2.6-7.2 [id number] 05:39:00 Test Item Value Reference Range Comments MAGNESIUM (BEAKER) (test bizv=782) 1.9 mg/dL 1.6-2.6 [id number] 05:39:00 Test Item Value Reference Range Comments PHOSPHORUS (BEAKER) (test qazm=700) 2.8 mg/dL 2.3-4.7 COMPREHENSIVE METABOLIC [id number] 05:39:00 Test Item Value Reference Range Comments TOTAL PROTEIN (BEAKER) 5.6 gm/dL 6.0-8.3 (test qvqx=884) ALBUMIN (BEAKER) (test 2.8 g/dL 3.5-5.0 ofss=4121) ALKALINE PHOSPHATASE 112 U/L 40-150 (BEAKER) (test wozx=633) BILIRUBIN TOTAL (BEAKER) 0.5 mg/dL 0.2-1.2 (test koar=953) SODIUM (BEAKER) (test 137 meq/L 136-145 sytx=355) POTASSIUM (BEAKER) (test 3.4 meq/L 3.5-5.1 kxul=237) CHLORIDE (BEAKER) (test 99 meq/L 98-107 jgqc=400) CO2 (BEAKER) (test 29 meq/L 22-29 hwiu=550) BLOOD UREA NITROGEN 31 mg/dL 7-21 (BEAKER) (test owqy=427) CREATININE (BEAKER) (test 1.99 mg/dL 0.57-1.25 nmuc=013) GLUCOSE RANDOM (BEAKER) 111 mg/dL 70-105 (test lwrm=704) CALCIUM (BEAKER) (test 8.3 mg/dL 8.4-10.2 arza=854) AST (SGOT) (BEAKER) (test 22 U/L 5-34 kkdy=759) ALT (SGPT) (BEAKER) (test 17 U/L 6-55 emsa=359) EGFR (BEAKER) (test 32 mL/min/1.73 sq m ESTIMATED GFR IS NOT tfdr=5546) ACCURATE CREATININE CLEARANCE IN PREDICTING GLOMERULAR FILTRATION RATE. ESTIMATED GFR IS NOT APPLICABLE FOR DIALYSIS PATIENTS. CREATINE KINASE (CK)2017-11-20 05:39:00 Test Item Value Reference Range Comments CREATINE KINASE TOTAL (BEAKER) (test vakk=271) 97 U/L 29-200 CBC W/PLT COUNT & AUTO [id number] 05:07:00 Test Item Value Reference Range Comments WHITE BLOOD CELL COUNT (BEAKER) (test igbr=533) 10.1 K/ L 3.5-10.5 RED BLOOD CELL COUNT (BEAKER) (test jrgq=506) 3.27 M/ L 4.63-6.08 HEMOGLOBIN (BEAKER) (test gcsh=674) 9.4 GM/DL 13.7-17.5 HEMATOCRIT (BEAKER) (test hdud=924) 28.4 % 40.1-51.0 MEAN CORPUSCULAR VOLUME (BEAKER) (test hagj=950) 86.9 fL 79.0-92.2 MEAN CORPUSCULAR HEMOGLOBIN (BEAKER) (test 28.7 pg 25.7-32.2 jrbk=983) MEAN CORPUSCULAR HEMOGLOBIN CONC (BEAKER) (test 33.1 GM/DL 32.3-36.5 bmbm=710) RED CELL DISTRIBUTION WIDTH (BEAKER) (test 14.4 % 11.6-14.4 gkif=348) PLATELET COUNT (BEAKER) (test cuql=849) 286 K/CU MM 150-450 MEAN PLATELET VOLUME (BEAKER) (test cdxa=160) 9.6 fL 9.4-12.4 NUCLEATED RED BLOOD CELLS (BEAKER) (test 0 /100 WBC 0-0 kmod=055) CALCIUM, [id number] 05:06:00 Test Item Value Reference Range Comments CALCIUM IONIZED (BEAKER) (test gzcd=141) 1.00 mmol/L 1.12-1.27 PH, BLOOD (BEAKER) (test kyyw=6151) 7.46 RHEUMATOID FACTOR [id number] 01:38:00 Test Item Value Reference Range Comments RHEUMATOID FACTOR TITER (BEAKER) (test xitm=3416) :8 RHEUMATOID FACTOR AB, REFLEX TO [id number] 01:38:00 Test Item Value Reference Range Comments RHEUMATOID FACTOR (BEAKER) (test plse=737) Positive POCT-GLUCOSE [id number] 22:04:00 Test Item Value Reference Range Comments POC-GLUCOSE METER (BEAKER) 212 mg/dL 70-110 TESTED AT [facility] [address] [facility] (test ccys=6072) [facility] [address] POCT-GLUCOSE [id number] 18:12:00 Test Item Value Reference Range Comments POC-GLUCOSE METER (BEAKER) 155 mg/dL 70-110 TESTED AT [facility] [address] (test jfpq=2905) [facility] [address] HIV-1 ANTIGEN WITH HIV-1/2 [id number] 16:21:00 Test Item Value Reference Range Comments HIV-1 ANTIGEN WITH HIV 1\\T\\2 ANTIBODY (2) Nonreactive Nonreactive (BEAKER) (test spgl=3257) TROPONIN [id number] 16:04:00 Test Item Value Reference Range Comments TROPONIN I (BEAKER) (test vjpd=332) 0.06 ng/mL 0.00-0.03 Troponin I (TnI) levels [...] acute neurological disease, and persistent tachyarrhythmia.CREATININE, RANDOM [id number] 16:00 :00 Test Item Value Reference Range Comments CREATININE URINE (BEAKER) (test jxra=183) < mg/dL Reference Range: No NormalsPROTHROMBIN [id number] 15:58:00 Test Item Value Reference Range Comments PROTIME (BEAKER) (test nmin=016) 16.0 seconds 11.7-14.7 INR (BEAKER) (test nlih=642) 1.3 <=5.9 RECOMMENDED COUMADIN/WARFARIN INR THERAPY RANGESSTANDARD DOSE: 2.0 - 3.0 Includes: PROPHYLAXIS forvenous thrombosis, systemic embolization; TREATMENT for venous thrombosis and/or pulmonary embolus.HIGH RISK: Target INR is 2.5-3.5 for patients with mechanical heart valves.PROTEIN, RANDOM [id number] 15:56: 00 Test Item Value Reference Range Comments PROTEIN, URINE (BEAKER) (test dvrx=8493) 94 mg/dL 0-14 SODIUM, RANDOM [id number] 15:56:00 Test Item Value Reference Range Comments SODIUM URINE (BEAKER) (test oocv=136) 91 meq/L Reference Range: No NormalsURINALYSIS W/ [id number] 15:53:00 Test Item Value Reference Range Comments COLOR (BEAKER) (test bclt=966) Light Yellow CLARITY (BEAKER) (test lffe=923) Clear SPECIFIC GRAVITY UA (BEAKER) (test nyvq=980) 1.003 1.001-1.035 PH UA (BEAKER) (test zkxt=554) 8.0 5.0-8.0 PROTEIN UA (BEAKER) (test ilfk=609) 100 mg/dL Negative GLUCOSE UA (BEAKER) (test sbjj=189) 30 mg/dL Negative KETONES UA (BEAKER) (test fxzp=873) Negative Negative BILIRUBIN UA (BEAKER) (test jpoi=187) Negative Negative BLOOD UA (BEAKER) (test qxof=419) Small Negative NITRITE UA (BEAKER) (test ptmy=509) Negative Negative LEUKOCYTE ESTERASE UA (BEAKER) (test xnaa=347) Negative Negative UROBILINOGEN UA (BEAKER) (test hfbx=561) 0.2 mg/dL 0.2-1.0 RBC UA (BEAKER) (test kfxb=309) 1 /HPF WBC UA (BEAKER) (test pffb=543) 4 /HPF BACTERIA (BEAKER) (test ittf=593) Rare MUCUS (BEAKER) (test fuma=0927) Rare SQUAMOUS EPITHELIAL (BEAKER) (test wmir=908) < /HPF SOURCE(BEAKER) (test ntwr=0238) Urine, [place] BASIC METABOLIC [id number] 15:52:00 Test Item Value Reference Range Comments SODIUM (BEAKER) (test 137 meq/L 136-145 icar=106) POTASSIUM (BEAKER) (test 3.3 meq/L 3.5-5.1 egnm=706) CHLORIDE (BEAKER) (test 100 meq/L 98-107 aszg=788) CO2 (BEAKER) (test 26 meq/L 22-29 akxj=356) BLOOD UREA NITROGEN 23 mg/dL 7-21 (BEAKER) (test rvuv=775) CREATININE (BEAKER) (test 1.45 mg/dL 0.57-1.25 dfpc=051) GLUCOSE RANDOM (BEAKER) 120 mg/dL 70-105 (test ilhv=111) CALCIUM (BEAKER) (test 8.1 mg/dL 8.4-10.2 gqlk=020) EGFR (BEAKER) (test 47 mL/min/1.73 sq m ESTIMATED GFR IS NOT duwa=4364) ACCURATE CREATININE CLEARANCE IN PREDICTING GLOMERULAR FILTRATION RATE. ESTIMATED GFR IS NOT APPLICABLE FOR DIALYSIS PATIENTS. POCT-GLUCOSE [id number] 12:09:00 Test Item Value Reference Range Comments POC-GLUCOSE METER (BEAKER) 87 mg/dL 70-110 TESTED AT [address] (test mbsq=5044) [place] [id number] POCT-GLUCOSE [id number] 11:21:00 Test Item Value Reference Range Comments POC-GLUCOSE METER (BEAKER) 90 mg/dL 70-110 TESTED AT [address] (test okqw=5320) [place] [id number] POCT-GLUCOSE [id number] 11:12:00 Test Item Value Reference Range Comments POC-GLUCOSE METER (BEAKER) 111 mg/dL 70-110 TESTED AT [address] (test bwsq=1297) [place] [address] HEMOGLOBIN [id number] 09:59:00 Test Item Value Reference Range Comments HEMOGLOBIN A1C (BEAKER) (test gbmo=011) 6.1 % 4.3-6.1 CREATINE KINASE (CK), TOTAL AND [id number] 08:02:00 Test Item Value Reference Range Comments CREATINE KINASE TOTAL (BEAKER) (test uupc=963) 141 U/L 29-200 CREATINE KINASE-MB (BEAKER) (test jdyo=603) 7.9 ng/mL 0.0-6.6 CREATINE KINASE-MB INDEX (BEAKER) (test hibu=205) 5.6 % CK-MB Reference Range:<6.7 Normal6.7-10.0 Borderline>10.0 AbnormalTROPONIN [id number] 08:02:00 Test Item Value Reference Range Comments TROPONIN I (BEAKER) (test dwvi=478) 0.05 ng/mL 0.00-0.03 Troponin I (TnI) levels [...] failure, acidosis, acute neurological disease, and persistent tachyarrhythmia.[id number] 08:01:00 Test Item Value Reference Range Comments POTASSIUM (BEAKER) (test vqur=801) 4.6 meq/L 3.5-5.1 CALCIUM, [id number] 07:49:00 Test Item Value Reference Range Comments CALCIUM IONIZED (BEAKER) (test tpzq=988) 0.99 mmol/L 1.12-1.27 PH, BLOOD (BEAKER) (test myzn=8048) 7.45 LACTIC ACID, VENOUS, WHOLE [id number] 06:58:00 Test Item Value Reference Range Comments LACTATE BLOOD VENOUS (2) 3.8 mmol/L 0.5-2.2 Specimen slightly hemolyzed (BEAKER) (test jsgu=5703) Effective 09/27/2015: Units/Reference Range ChangeNew: 0.5-2.2 mmol/L Previous: 5 -20 mg/dLCOMPREHENSIVE METABOLIC [id number] 04:38:00 Test Item Value Reference Range Comments TOTAL PROTEIN (BEAKER) 5.7 gm/dL 6.0-8.3 (test jjqi=111) ALBUMIN (BEAKER) (test 2.9 g/dL 3.5-5.0 jabo=7234) ALKALINE PHOSPHATASE 89 U/L 40-150 (BEAKER) (test xmjo=726) BILIRUBIN TOTAL (BEAKER) 0.4 mg/dL 0.2-1.2 (test iuii=118) SODIUM (BEAKER) (test 135 meq/L 136-145 bfhz=622) POTASSIUM (BEAKER) (test 4.6 meq/L 3.5-5.1 bkiy=546) CHLORIDE (BEAKER) (test 98 meq/L 98-107 yaku=947) CO2 (BEAKER) (test 20 meq/L 22-29 txsz=267) BLOOD UREA NITROGEN 59 mg/dL 7-21 (BEAKER) (test eiwe=739) CREATININE (BEAKER) (test 2.81 mg/dL 0.57-1.25 vzfg=101) GLUCOSE RANDOM (BEAKER) 105 mg/dL 70-105 (test sfnh=253) CALCIUM (BEAKER) (test 8.6 mg/dL 8.4-10.2 vgrd=604) AST (SGOT) (BEAKER) (test 20 U/L 5-34 ywqv=779) ALT (SGPT) (BEAKER) (test 19 U/L 6-55 lhzp=891) EGFR (BEAKER) (test 22 mL/min/1.73 sq m ESTIMATED GFR IS NOT mbjg=0118) ACCURATE CREATININE CLEARANCE IN PREDICTING GLOMERULAR FILTRATION RATE. ESTIMATED GFR IS NOT APPLICABLE FOR DIALYSIS PATIENTS. B-TYPE NATRIURETIC FACTOR (BNP)2017-11-19 04:37:00 Test Item Value Reference Range Comments B-TYPE NATRIURETIC PEPTIDE (BEAKER) (test 561 pg/mL 0-100 qquu=700) [id number] 04:37:00 Test Item Value Reference Range Comments PHOSPHORUS (BEAKER) (test yeom=413) 6.1 mg/dL 2.3-4.7 [id number] 04:37:00 Test Item Value Reference Range Comments MAGNESIUM (BEAKER) (test lppx=040) 1.8 mg/dL 1.6-2.6 CBC W/PLT COUNT & AUTO [id number] 04:18:00 Test Item Value Reference Range Comments WHITE BLOOD CELL COUNT (BEAKER) (test pqhn=948) 8.2 K/ L 3.5-10.5 RED BLOOD CELL COUNT (BEAKER) (test sjqq=894) 3.15 M/ L 4.63-6.08 HEMOGLOBIN (BEAKER) (test msjg=708) 9.0 GM/DL 13.7-17.5 HEMATOCRIT (BEAKER) (test vreh=392) 27.2 % 40.1-51.0 MEAN CORPUSCULAR VOLUME (BEAKER) (test uern=716) 86.3 fL 79.0-92.2 MEAN CORPUSCULAR HEMOGLOBIN (BEAKER) (test 28.6 pg 25.7-32.2 pbai=153) MEAN CORPUSCULAR HEMOGLOBIN CONC (BEAKER) (test 33.1 GM/DL 32.3-36.5 zwkz=918) RED CELL DISTRIBUTION WIDTH (BEAKER) (test 14.5 % 11.6-14.4 mzrx=637) PLATELET COUNT (BEAKER) (test fjlb=238) 319 K/CU MM 150-450 MEAN PLATELET VOLUME (BEAKER) (test slwt=098) 9.4 fL 9.4-12.4 NUCLEATED RED BLOOD CELLS (BEAKER) (test 0 /100 WBC 0-0 bilq=938) NEUTROPHILS RELATIVE PERCENT (BEAKER) (test 69 % ijmu=472) LYMPHOCYTES RELATIVE PERCENT (BEAKER) (test 10 % oyny=624) MONOCYTES RELATIVE PERCENT (BEAKER) (test 19 % ybnc=334) EOSINOPHILS RELATIVE PERCENT (BEAKER) (test 2 % nfwi=319) BASOPHILS RELATIVE PERCENT (BEAKER) (test 0 % oxja=397) NEUTROPHILS ABSOLUTE COUNT (BEAKER) (test 5.68 K/ L 1.78-5.38 nerx=305) LYMPHOCYTES ABSOLUTE COUNT (BEAKER) (test 0.81 K/ L 1.32-3.57 ugnn=287) MONOCYTES ABSOLUTE COUNT (BEAKER) (test 1.55 K/ L 0.30-0.82 ylmf=196) EOSINOPHILS ABSOLUTE COUNT (BEAKER) (test 0.14 K/ L 0.04-0.54 tnup=917) BASOPHILS ABSOLUTE COUNT (BEAKER) (test 0.02 K/ L 0.01-0.08 kuum=396) IMMATURE GRANULOCYTES-RELATIVE PERCENT (BEAKER) 1 % 0-1 (test pdjx=1910) [id number] 02:41:00 Test Item Value Reference Range Comments POTASSIUM (BEAKER) (test jeqm=411) 4.7 meq/L 3.5-5.1 LACTIC ACID, VENOUS, WHOLE [id number] 00:45:00 Test Item Value Reference Range Comments LACTATE BLOOD VENOUS (2) 7.6 mmol/L 0.5-2.2 Specimen slightly hemolyzed (BEAKER) (test ktcp=7975) Effective 09/27/2015: Units/Reference Range ChangeNew: 0.5-2.2 mmol/L Previous: 5 -20 mg/dLPOCT-GLUCOSE [id number] 00:27:00 Test Item Value Reference Range Comments POC-GLUCOSE METER (BEAKER) 159 mg/dL 70-110 TESTED AT [facility] [address] [facility] (test uuez=9815) [facility] [address] CREATINE KINASE (CK), TOTAL AND [id number] 22:57:00 Test Item Value Reference Range Comments CREATINE KINASE TOTAL (BEAKER) (test nfhs=544) 175 U/L 29-200 CREATINE KINASE-MB (BEAKER) (test cvhx=110) 12.3 ng/mL 0.0-6.6 CREATINE KINASE-MB INDEX (BEAKER) (test hzaf=074) 7.0 % CK-MB Reference Range:<6.7 Normal6.7-10.0 Borderline>10.0 AbnormalTROPONIN [id number] 22:57:00 Test Item Value Reference Range Comments TROPONIN I (BEAKER) (test gyzh=101) 0.04 ng/mL 0.00-0.03 Troponin I (TnI) levels [...] failure, acidosis, acute neurological disease, and persistent tachyarrhythmia.[id number] 22:51:00 Test Item Value Reference Range Comments POTASSIUM (BEAKER) (test zqfe=058) 4.7 meq/L 3.5-5.1 POCT-GLUCOSE [id number] 19:28:00 Test Item Value Reference Range Comments POC-GLUCOSE METER (BEAKER) 117 mg/dL 70-110 TESTED AT [facility] [address] [facility] (test mzdm=6857) [facility] [address] BASIC METABOLIC [id number] 19:07:00 Test Item Value Reference Range Comments SODIUM (BEAKER) (test 133 meq/L 136-145 blcy=637) POTASSIUM (BEAKER) (test 4.6 meq/L 3.5-5.1 nmwi=857) CHLORIDE (BEAKER) (test 95 meq/L 98-107 crak=811) CO2 (BEAKER) (test 19 meq/L 22-29 saof=786) BLOOD UREA NITROGEN 57 mg/dL 7-21 (BEAKER) (test lrwn=959) CREATININE (BEAKER) (test 2.64 mg/dL 0.57-1.25 imyj=570) GLUCOSE RANDOM (BEAKER) 131 mg/dL 70-105 (test htff=247) CALCIUM (BEAKER) (test 9.1 mg/dL 8.4-10.2 qgjx=000) EGFR (BEAKER) (test 23 mL/min/1.73 sq m ESTIMATED GFR IS NOT pfgy=1468) ACCURATE CREATININE CLEARANCE IN PREDICTING GLOMERULAR FILTRATION RATE. ESTIMATED GFR IS NOT APPLICABLE FOR DIALYSIS PATIENTS. Call [id number] ACID, VENOUS, WHOLE [id number] 19:00:00 Test Item Value Reference Range Comments LACTATE BLOOD VENOUS (2) (BEAKER) (test 5.8 mmol/L 0.5-2.2 njig=3617) Effective 09/27/2015: Units/Reference Range ChangeNew: 0.5-2.2 mmol/L Previous: 5 -20 mg/dLU/S, RENAL, [id number] 16:16:00Reason for exam:->akiShould this be performed at [...] Verified Date /Time: 11/18/2017 16:16:10 Reading Location: [address] Ultrasound Reading Room CREATINE KINASE (CK), TOTAL AND [id number] 15:14:00 Test Item Value Reference Range Comments CREATINE KINASE TOTAL (BEAKER) (test vlom=075) 173 U/L 29-200 CREATINE KINASE-MB (BEAKER) (test yans=954) 11.1 ng/mL 0.0-6.6 CREATINE KINASE-MB INDEX (BEAKER) (test mvks=357) 6.4 % CK-MB Reference Range:<6.7 Normal6.7-10.0 Borderline>10.0 AbnormalTROPONIN [id number] 15:14:00 Test Item Value Reference Range Comments TROPONIN I (BEAKER) (test teqj=732) 0.04 ng/mL 0.00-0.03 Troponin I (TnI) levels [...] acute neurological disease, and persistent tachyarrhythmia.BASIC METABOLIC [id number] 15:11:00 Test Item Value Reference Range Comments SODIUM (BEAKER) (test 137 meq/L 136-145 nlzr=107) POTASSIUM (BEAKER) (test 4.4 meq/L 3.5-5.1 ehwy=740) CHLORIDE (BEAKER) (test 97 meq/L 98-107 qnaz=061) CO2 (BEAKER) (test 17 meq/L 22-29 feqp=127) BLOOD UREA NITROGEN 55 mg/dL 7-21 (BEAKER) (test oajm=508) CREATININE (BEAKER) (test 2.48 mg/dL 0.57-1.25 jxpk=897) GLUCOSE RANDOM (BEAKER) 66 mg/dL 70-105 (test fxfg=986) CALCIUM (BEAKER) (test 9.3 mg/dL 8.4-10.2 phwq=154) EGFR (BEAKER) (test 25 mL/min/1.73 sq m ESTIMATED GFR IS NOT gjtv=3532) ACCURATE CREATININE CLEARANCE IN PREDICTING GLOMERULAR FILTRATION RATE. ESTIMATED GFR IS NOT APPLICABLE FOR DIALYSIS PATIENTS. [id number] 15:06:00 Test Item Value Reference Range Comments PHOSPHORUS (BEAKER) (test nvmi=546) 5.4 mg/dL 2.3-4.7 [id number] 15:06:00 Test Item Value Reference Range Comments MAGNESIUM (BEAKER) (test wawh=777) 2.8 mg/dL 1.6-2.6 URINALYSIS W/ REFLEX URINE [id number] 14:00:00 Test Item Value Reference Range Comments COLOR (BEAKER) (test lunz=426) Yellow CLARITY (BEAKER) (test cdfb=879) Hazy SPECIFIC GRAVITY UA (BEAKER) (test syst=264) 1.013 1.001-1.035 PH UA (BEAKER) (test gqem=362) 6.5 5.0-8.0 PROTEIN UA (BEAKER) (test vwsy=447) 600 mg/dL Negative GLUCOSE UA (BEAKER) (test cqjc=391) 200 mg/dL Negative KETONES UA (BEAKER) (test oipz=751) Negative Negative BILIRUBIN UA (BEAKER) (test dxfd=254) Negative Negative BLOOD UA (BEAKER) (test gmlz=099) Small Negative NITRITE UA (BEAKER) (test zqmw=236) Negative Negative LEUKOCYTE ESTERASE UA (BEAKER) (test wavm=855) Moderate Negative UROBILINOGEN UA (BEAKER) (test ccgt=172) 0.2 mg/dL 0.2-1.0 RBC UA (BEAKER) (test gfni=328) 2 /HPF WBC UA (BEAKER) (test smqq=555) 3 /HPF SQUAMOUS EPITHELIAL (BEAKER) (test hslm=737) < /HPF GRANULAR CASTS (BEAKER) (test zxei=466) 2 /LPF SOURCE(BEAKER) (test trvz=9867) CBC W/PLT COUNT & AUTO [id number] 12:50:00 Test Item Value Reference Range Comments WHITE BLOOD CELL COUNT (BEAKER) (test qojo=062) 14.7 K/ L 3.5-10.5 RED BLOOD CELL COUNT (BEAKER) (test ipyc=469) 3.47 M/ L 4.63-6.08 HEMOGLOBIN (BEAKER) (test wvct=663) 10.2 GM/DL 13.7-17.5 HEMATOCRIT (BEAKER) (test vgze=307) 32.0 % 40.1-51.0 MEAN CORPUSCULAR VOLUME (BEAKER) (test ipdy=254) 92.2 fL 79.0-92.2 MEAN CORPUSCULAR HEMOGLOBIN (BEAKER) (test 29.4 pg 25.7-32.2 qwju=112) MEAN CORPUSCULAR HEMOGLOBIN CONC (BEAKER) (test 31.9 GM/DL 32.3-36.5 xeyf=625) RED CELL DISTRIBUTION WIDTH (BEAKER) (test 14.7 % 11.6-14.4 doew=812) PLATELET COUNT (BEAKER) (test itxb=629) 450 K/CU MM 150-450 MEAN PLATELET VOLUME (BEAKER) (test hoos=249) 9.9 fL 9.4-12.4 NUCLEATED RED BLOOD CELLS (BEAKER) (test 0 /100 WBC 0-0 ljom=428) (CELLAVISION MANUAL DIFF)2017-11-18 12:50:00 Test Item Value Reference Range Comments NEUTROPHILS - REL (CELLAVISION)(BEAKER) (test 78 % hncr=2554) LYMPHOCYTES - REL (CELLAVISION)(BEAKER) (test 8 % dorf=7152) MONOCYTES - REL (CELLAVISION)(BEAKER) (test 10 % lvyr=8478) BANDS - REL (CELLAVISION)(BEAKER) (test 1 % 0-10 rvak=4178) ATYPICAL LYMPHOCYTES - REL (CELLAVISION)(BEAKER) 3 % 0-0 (test tpaz=4697) NEUTROPHILS - ABS (CELLAVISION)(BEAKER) (test 11.47 K/ul 1.78-5.38 uhdy=0709) LYMPHOCYTES - ABS (CELLAVISION)(BEAKER) (test 1.18 K/ul 1.32-3.57 jbtu=4136) MONOCYTES - ABS (CELLAVISION)(BEAKER) (test 1.47 K/uL 0.30-0.82 ikhk=7811) BANDS - ABS (CELLAVISION)(BEAKER) (test 0.15 K/uL 0.00-0.80 rbjc=4314) ATYPICAL LYMPHOCYTES - ABS (CELLAVISION)(BEAKER) 0.44 K/uL 0.00-0.00 (test cdjn=6309) TOTAL COUNTED (BEAKER) (test werr=6146) 100 PLT MORPHOLOGY (BEAKER) (test xiqy=281) Normal SMUDGE CELLS (BEAKER) (test inbp=1431) Present POIKILOCYTES (BEAKER) (test eowq=799) 2+ moderate LENIN CELLS (BEAKER) (test azag=710) 2+ moderate PLATELET CONCENTRATION (CELLAVISION)(BEAKER) Adequate (test ztrm=2117) Received comment: User comments: Slide comments:HEPATITIS B SURFACE [id number] 12:11:00 Test Item Value Reference Range Comments HEPATITIS B SURFACE ANTIGEN (2) (BEAKER) (test Nonreactive Nonreactive dwlc=7652) HEPATITIS B CORE ANTIBODY, [id number] 12:11:00 Test Item Value Reference Range Comments HEPATITIS B CORE IGM ANTIBODY (BEAKER) (test Nonreactive Nonreactive jqpr=938) HEPATITIS C [id number] 12:11:00 Test Item Value Reference Range Comments HEPATITIS C ANTIBODY (BEAKER) (test mfir=908) Nonreactive Nonreactive HEPATITIS B CORE ANTIBODY, [id number] 12:11:00 Test Item Value Reference Range Comments HEPATITIS B CORE TOTAL ANTIBODY (BEAKER) (test Nonreactive Nonreactive cuhc=278) POCT-GLUCOSE [id number] 12:05:00 Test Item Value Reference Range Comments POC-GLUCOSE METER (BEAKER) 179 mg/dL 70-110 TESTED AT [facility] [address] [facility] (test wrsy=9468) [facility] [address] LACTIC ACID, VENOUS, WHOLE [id number] 11:18:00 Test Item Value Reference Range Comments LACTATE BLOOD VENOUS (2) (BEAKER) (test 8.0 mmol/L 0.5-2.2 lnvh=4712) Effective 09/27/2015: Units/Reference Range ChangeNew: 0.5-2.2 mmol/L Previous: 5 -20 mg/[id number] 11:16:00 Test Item Value Reference Range Comments POTASSIUM (BEAKER) (test lesr=454) 5.3 meq/L 3.5-5.1 BLOOD GAS, [id number] 10:48:00 Test Item Value Reference Range Comments PH VENOUS (BEAKER) (test ziaf=351) 7.49 7.32-7.42 PCO2 VENOUS (BEAKER) (test ndbe=569) 24 mmHg 41-51 PO2 VENOUS (BEAKER) (test zypx=182) 41 mmHg 25-40 O2 SATURATION VENOUS (BEAKER) (test cpki=381) 86.8 % 40.0-70.0 HCO3 VENOUS (BEAKER) (test rcih=132) 18 mmol/L 21-29 BASE EXCESS VENOUS (BEAKER) (test eobe=813) -4.6 mmol/L -2.0-3.0 PATIENT TEMPERATURE (BEAKER) (test tegx=6367) 34.5 C FIO2 (BEAKER) (test rwgh=0111) 36.0 % [id number] 10:27:00 Test Item Value Reference Range Comments SODIUM (BEAKER) (test qcrz=438) 133 meq/L 136-145 POTASSIUM (BEAKER) (test kdyq=948) 6.8 meq/L 3.5-5.1 CHLORIDE (BEAKER) (test duav=707) 102 meq/L 98-107 CO2 (BEAKER) (test tctd=844) 8 meq/L 22-29 Call [id number] FUNCTION [id number] 10:23:00 Test Item Value Reference Range Comments TOTAL PROTEIN (BEAKER) (test xjuw=277) 6.3 gm/dL 6.0-8.3 ALBUMIN (BEAKER) (test avys=6535) 3.2 g/dL 3.5-5.0 BILIRUBIN TOTAL (BEAKER) (test yfns=820) 0.4 mg/dL 0.2-1.2 BILIRUBIN DIRECT (BEAKER) (test bnus=223) 0.2 mg/dL 0.1-0.5 ALKALINE PHOSPHATASE (BEAKER) (test xclv=177) 95 U/L 40-150 AST (SGOT) (BEAKER) (test flzx=573) 20 U/L 5-34 ALT (SGPT) (BEAKER) (test nwul=796) 21 U/L 6-55 Call [id number] 10:14:00 Test Item Value Reference Range Comments PHOSPHORUS (BEAKER) (test mval=061) 10.6 mg/dL 2.3-4.7 [id number] 10:12:00 Test Item Value Reference Range Comments MAGNESIUM (BEAKER) (test gdwj=096) 2.2 mg/dL 1.6-2.6 BLOOD GAS, [id number] 09:10:00 Test Item Value Reference Range Comments PH VENOUS (BEAKER) (test magl=119) 7.24 7.32-7.42 PCO2 VENOUS (BEAKER) (test ordx=213) 24 mmHg 41-51 PO2 VENOUS (BEAKER) (test eytj=918) 54 mmHg 25-40 O2 SATURATION VENOUS (BEAKER) (test vppn=697) 86.6 % 40.0-70.0 HCO3 VENOUS (BEAKER) (test mjzx=024) 10 mmol/L 21-29 BASE EXCESS VENOUS (BEAKER) (test ujoz=284) -16.0 mmol/L -2.0-3.0 PATIENT TEMPERATURE (BEAKER) (test ptti=0437) 35.6 C FIO2 (BEAKER) (test rltz=4962) 36.0 % RAD, CHEST, 1 VIEW, NON [id number] 08:59:00Reason for exam:->edemaShould this be performed at the bedside?->YesFINAL REPORT Chest one view Discussion: Semiconfluent bilateral pulmonary opacities presumably representing edema. There is some suspected scattered nodularity that probably represents granulomas. No gross effusion or pneumothorax. Right IJ line in place. Heart size normal. Signed: Renu Hirsch Verified Date /Time: 11/18/2017 08:59:05 Reading Location: [facility] Radiology Reading Room [id number] 07:53:00 Test Item Value Reference Range Comments PHOSPHORUS (BEAKER) (test xkzl=249) 10.8 mg/dL 2.3-4.7 CALCIUM, [id number] 07:12:00 Test Item Value Reference Range Comments CALCIUM IONIZED (BEAKER) (test gkuo=438) 1.14 mmol/L 1.12-1.27 PH, BLOOD (BEAKER) (test jwtw=0844) 7.11 BASIC METABOLIC [id number] 07:04:00 Test Item Value Reference Range Comments SODIUM (BEAKER) (test 129 meq/L 136-145 abcf=563) POTASSIUM (BEAKER) (test 7.3 meq/L 3.5-5.1 ztrd=179) CHLORIDE (BEAKER) (test 102 meq/L 98-107 wzzs=818) CO2 (BEAKER) (test 6 meq/L 22-29 nlfp=643) BLOOD UREA NITROGEN 123 mg/dL 7-21 (BEAKER) (test jjyn=518) CREATININE (BEAKER) (test 4.47 mg/dL 0.57-1.25 bdfn=040) GLUCOSE RANDOM (BEAKER) 222 mg/dL 70-105 (test itoe=335) CALCIUM (BEAKER) (test 9.5 mg/dL 8.4-10.2 ebnj=802) EGFR (BEAKER) (test 13 mL/min/1.73 sq m ESTIMATED GFR IS NOT udam=3405) ACCURATE CREATININE CLEARANCE IN PREDICTING GLOMERULAR FILTRATION RATE. ESTIMATED GFR IS NOT APPLICABLE FOR DIALYSIS PATIENTS. POCT-GLUCOSE [id number] 06:57:00 Test Item Value Reference Range Comments POC-GLUCOSE METER (BEAKER) 203 mg/dL 70-110 TESTED AT [facility] [address] [facility] (test dwbe=2160) [facility] [address] CREATINE KINASE (CK), TOTAL AND [id number] 06:54:00 Test Item Value Reference Range Comments CREATINE KINASE TOTAL (BEAKER) (test nxtx=484) 94 U/L 29-200 CREATINE KINASE-MB (BEAKER) (test yvkt=512) 7.4 ng/mL 0.0-6.6 CREATINE KINASE-MB INDEX (BEAKER) (test vlez=557) 7.9 % CK-MB Reference Range:<6.7 Normal6.7-10.0 Borderline>10.0 AbnormalTROPONIN [id number] 06:54:00 Test Item Value Reference Range Comments TROPONIN I (BEAKER) (test romk=976) 0.02 ng/mL 0.00-0.03 Troponin I (TnI) levels [...] failure, acidosis, acute neurological disease, and persistent tachyarrhythmia.[id number] 06:53:00 Test Item Value Reference Range Comments MAGNESIUM (BEAKER) (test zhek=379) 2.3 mg/dL 1.6-2.6 B-TYPE NATRIURETIC FACTOR (BNP)2017-11-18 06:38:00 Test Item Value Reference Range Comments B-TYPE NATRIURETIC PEPTIDE (BEAKER) (test 866 pg/mL 0-100 vrsk=313) PROTHROMBIN TIME/[id number] 06:36:00 Test Item Value Reference Range Comments PROTIME (BEAKER) (test irjv=185) 16.1 seconds 11.7-14.7 INR (BEAKER) (test fnyr=659) 1.3 <=5.9 RECOMMENDED COUMADIN/WARFARIN INR THERAPY RANGESSTANDARD DOSE: 2.0 - 3.0 Includes: PROPHYLAXIS forvenous thrombosis, systemic embolization; TREATMENT for venous thrombosis and/or pulmonary embolus.HIGH RISK: Target INR is 2.5-3.5 for patients with mechanical heart valves.LACTIC ACID, VENOUS, WHOLE [id number] 06:15:00 Test Item Value Reference Range Comments LACTATE BLOOD VENOUS (2) (BEAKER) (test 8.9 mmol/L 0.5-2.2 eylz=5589) Effective 09/27/2015: Units/Reference Range ChangeNew: 0.5-2.2 mmol/L Previous: 5 -20 mg/dL
[2017-12-20] MEDS ORDERED: ROCURONIUM 50 MG/5 ML VIAL IV ONE (13:04)
[2017-12-20] MEDS ORDERED: RSI MEDICATION KIT IV ONE (13:04)
[2017-12-20] MEDS ORDERED: ALBUTEROL 2.5 MG/3 ML NEB SOL ONE ×2 (13:07→13:11)
[2017-12-20] MEDS ORDERED: INSULIN -REGULAR HUMAN 50 UNIT/0.5 ML ML ONE (13:23)
[2017-12-20] MEDS ORDERED: DOPAMINE/D5W 400 MG/250 ML BAG IV ONE ×3 (13:23→19:04)
[2017-12-20] MEDS ORDERED: NA CHLORIDE 0.9% 2,000 ML ONE (13:25)
[2017-12-20 13:47] LABS: Arterial Blood Carboxyhemoglob 0.9 % (0-1.5); Blood Gas Oxyhemoglobin 97.4 % (94-97); Blood O2 Saturation 99.3 % (92-98.5)
[2017-12-20 14:26] LABS: Absolute Lymphocytes (CBC) 1.7 K/uL (0.7-4.9); Absolute Monocytes 1.1 K/uL (0.1-1.3); Absolute Neutrophil 10.5 K/uL (1.8-8.0); Basophils % 0.5 % (0-1.3); Eosinophils % 0.4 % (0-4.4); Hematocrit 29.8 % (39.6-49.0); Lymphocytes % 12.6 % (15.3-44.8); MCH 29.4 pg (27.0-35.0); MPV 7.9 fL (7.6-11.3); Monocytes % 8.3 % (3.3-12.3); RBC Red Blood Cell Count 3.27 M/uL (4.33-5.43)
[2017-12-20 14:29] LABS: Protime INR 1.13
--- NOTE | 2017-12-20 14:41 | ER ---
Nurse's Notes [facility] Name: Nayla Greenberg Age: 82 yrs Sex: Male : 1935 Arrival Date: 12/20/2017 Time: 12:54 Bed 3 Private MD: Diagnosis: Cardiac dysrhythmia, cardiac arrest, altered mental status. Presentation: 12/20 12:53 Transition of care: patient was not received from another setting of care. Onset of ss symptoms is unknown. Risk Assessment: Do you want to hurt yourself or someone else? Patient reports no desire to harm self or others. 12:53 Method Of Arrival: EMS: [facility] ss 12:53 Acuity: KAROL 1 ss 12:53 Presenting complaint: EMS states: Pt is from home, called EMS for decreased urine ph output and swelling, pt hx of renal failure but does not receive dialysis, EKG shows intermittent bradycardia w/ rate dropping from 70's to 30's, pt responsive but lethargic, denies pain. 13:00 Initial Sepsis Screen: Does the patient meet any 2 criteria? Temp <36.0*C (96.8*F)) or ph > 38.3*C (100.4*F). Mean Arterial Pressure (MAP) < 65. Yes Does the patient have a suspected source of infection? No. Patient's initial sepsis screen is negative. Care prior to arrival: None. Historical: - Allergies: 13:53 adhesive tape-silicones; ss - Home Meds: 19:46 amlodipine 10 mg tab 1 tab once daily [Active]; gabapentin 300 mg Oral cap 1 cap at ph bedtime [Active]; Lasix 40 mg Oral tab once daily [Active]; Lipitor Oral [Active]; metformin 1,000 mg Oral tab 2 times per day [Active]; metoprolol tartrate 25 mg Oral tab 0.5 tab 2 times per day [Active]; multivitamin Oral daily [Active]; Vitamin D Oral 400 unit daily [Active]; - PMHx: 13:53 Diabetes - NIDDM; Hyperlipidemia; Hypertension; muscle atrophy; paralysis; RENAL ss FAILURE; - Immunization history:: Adult Immunizations unknown. - Social history:: Smoking status: unknown. - Ebola Screening: : No symptoms or risks identified at this time. Screenin:41 Abuse screen: Denies threats or abuse. Denies injuries from another. Nutritional ph screening: No deficits noted. Tuberculosis screening: No symptoms or risk factors identified. Fall Risk Fall in past 12 months (25 points). No secondary diagnosis (0 pts). IV access (20 points). Ambulatory Aid- None/Bed Rest/Nurse Assist (0 pts). Gait- Weak (10 pts.). Mental Status- Oriented to own ability (0 pts). Total Weiss Fall Scale indicates High Risk Score (45 or more points). Fall prevention measures have been instituted. Side Rails Up X 2 Placed Close to Nursing Station Frequent Obs/Assessments Occuring Family Present and informed to notify staff if the need to leave the bedside As available patient and family educated on Fall Prevention Program and Strategies. Assessment: 13:05 Reassessment: Pt having episodes of asystole lasting approx 5-10 seconds, Dr Hammer at bedside, pt moved to trauma room 3. 13:18 Reassessment: Pt placed on external pacer, initiated at 45 joules, rate 66 bpm. ph 13:25 Reassessment: External pacing paused per ERP order. ph 13:30 General: Appears in no apparent distress. uncomfortable, obese, Behavior is ph cooperative, drowsy, quiet, Denies fever. Pain: Denies pain. Cardiovascular: Denies chest pain, shortness of breath, Capillary refill < 3 seconds Edema is 3+ to right forearm, right wrist, right hand, left forearm, left wrist and left hand Rhythm is sinus rhythm w/ intermittent bradycardia and episodes of asystole lasting approx 5 seconds. Respiratory: Airway is patent Respiratory effort is relaxed, pt noted to be gasping when experiencing changes in cardiac rhythm Respiratory pattern is symmetrical, snoring. GI: No signs and/or symptoms were reported involving the gastrointestinal system. Abdomen is round distended, Reports nausea, Patient currently denies abdominal pain, diarrhea, vomiting. : Parent/caregiver report the patient having no urine output >24 hours. Derm: Skin is fragile, has skin tears on small skin tears noted to shakira forearms Wound noted left supraclavicular area. 13:30 Neuro: Level of Consciousness is lethargic, listless, Oriented to person, place, time, ph situation. 14:10 Reassessment: Pt noted to be in distress w/ gasping respirations, episode of asystole ph nod, pt placed on external pacer at 45 joules, HR 75. 14:20 Reassessment:. Cardiovascular: Rhythm is sinus tachycardia at 120 bpm, pacing paused. ph 14:45 Reassessment: Patient appears in no apparent distress at this time. Patient and/or ph family updated on plan of care and expected duration. Pain level reassessed. Pt asleep,respirations snoring and unlabored, awakens to tactile stimuli, denies pain, maintaining HR of 64 bpm, not pacing at this time. 15:18 Reassessment: Patient appears in no apparent distress at this time. Patient and/or ph family updated on plan of care and expected duration. Pain level reassessed. Dr Manley at bedside to speak w/ pt, pt awake and responding appropriately. 16:15 Reassessment: Patient appears in no apparent distress at this time. Patient and/or ph family updated on plan of care and expected duration. Pain level reassessed. Patient is alert, oriented x 3, equal unlabored respirations, skin warm/dry/pink. Pt resting quietly, denies pain or nausea at this time, family at bedside, awaiting Dr Faith for Taylor catheter placement. 17:08 Reassessment: Patient appears in no apparent distress at this time. Patient and/or ph family updated on plan of care and expected duration. Pain level reassessed. Patient is alert, oriented x 3, equal unlabored respirations, skin warm/dry/pink. Pt c/o pain in buttocks, repositioned w/ pillow underneath pt, now resting quietly, at bedside, awaiting Dr Faith for catheter placement. 17:55 Reassessment: Patient appears in no apparent distress at this time. Patient and/or ph family updated on plan of care and expected duration. Pain level reassessed. Patient is alert, oriented x 3, equal unlabored respirations, skin warm/dry/pink. Dr Faith at bedside, central line to R groin d/c and Taylor catheter placed, pt tolerated well. 18:15 Reassessment: Attempted to call report to ICU, receiving nurse refused to accept pt ph w/out additional IV access, charge nurse and ERP notified. 18:45 Reassessment: Patient appears in no apparent distress at this time. Patient and/or ph family updated on plan of care and expected duration. Pain level reassessed. Patient is alert, oriented x 3, equal unlabored respirations, skin warm/dry/pink. DR Faith at bedside to place central line to L groin, pt tolerated well. 19:10 General: Appears in no apparent distress. comfortable, Behavior is calm, cooperative, tl2 appropriate for age. Pain: Denies pain. Neuro: Level of Consciousness is awake, alert, obeys commands, Oriented to person, place, time, situation. Cardiovascular: Denies chest pain. Cardiovascular: Edema is 3+ to SHAKIRA arms, SHAKIRA legs. Respiratory: Airway is patent Respiratory effort is even, unlabored, Respiratory pattern is regular, symmetrical. GI: No signs and/or symptoms were reported involving the gastrointestinal system. Derm: Skin is pink, warm \T\ dry. 19:11 Reassessment: Dr. Faith at bedside inserting central line. Will call ICU for report tl2 after shift change. Pt is AOx4. BP is stable, all fluids will be transferred to central line. Hep lock administered through rajiv cath. 20:00 Reassessment: Patient appears in no apparent distress at this time. Patient and/or lp1 family updated on plan of care and expected duration. Pain level reassessed. Patient is alert, oriented x 3, equal unlabored respirations, skin warm/dry/pink. Pt stable, awaiting to transport pt to unit. Vital Signs: 13:10 BP 100 / 30; Pulse 64; Resp 12; Pulse Ox 100% on Non-rebreather mask; ph 13:30 BP 108 / 36; Pulse 64; Resp 16; Pulse Ox 100% on Nebulizer Mask; ph 14:20 BP 107 / 44; Pulse 65; Temp 94.5(cline temp); Pulse Ox 98% on R/A; ss 14:40 BP 104 / 48; Pulse 65; Pulse Ox 97% on 2 lpm NC; Pain 0/10; ss 15:00 BP 105 / 66; Pulse 64; Resp 18; Pulse Ox 98% on 2 lpm NC; ph 15:23 BP 103 / 47; Pulse 59; Resp 16; Temp 94.5(C); Pulse Ox 97% on 2 lpm NC; Pain 0/10; ph 15:45 BP 105 / 46; Pulse 59; Resp 16; Temp 94.6(C); Pulse Ox 96% on 2 lpm NC; ph 16:00 BP 104 / 46; Pulse 60; Resp 16; Pulse Ox 97% on 2 lpm NC; ph 16:15 BP 104 / 49; Pulse 59; Resp 18; Temp 94.7(C); Pulse Ox 96% on 2 lpm NC; ph 16:30 BP 94 / 41; Pulse 59; Resp 18; Temp 94.8(C); Pulse Ox 97% on 2 lpm NC; ph 16:45 BP 96 / 42; Pulse 57; Resp 18; Temp 94.9(TE); Pulse Ox 97% on 2 lpm NC; ph 17:00 BP 97 / 41; Pulse 57; Resp 18; Temp 95.1(C); Pulse Ox 98% on 2 lpm NC; ph 17:18 BP 99 / 40; Pulse 57; Resp 18; Temp 95.3(C); Pulse Ox 97% on 2 lpm NC; ph 17:30 BP 98 / 42; Pulse 57; Resp 18; Temp 95.5(C); Pulse Ox 99% on 2 lpm NC; ph 17:45 BP 91 / 50; Pulse 59; Resp 16; Temp 95.6; Pulse Ox 98% on 2 lpm NC; ph 18:00 BP 114 / 50; Pulse 58; Resp 16; Temp 95.7(C); Pulse Ox 99% on 2 lpm NC; ph 18:15 BP 99 / 42; Pulse 60; Resp 20; Temp 95.7(C); Pulse Ox 99% on 2 lpm NC; ph 18:30 BP 102 / 45; Pulse 60; Resp 16; Temp 95.7(C); Pulse Ox 99% on 2 lpm NC; ph 18:45 BP 105 / 51; Pulse 57; Resp 16; Temp 95.6(C); Pulse Ox 97% on 2 lpm NC; ph 19:00 BP 101 / 48; Pulse 61; Resp 16; Temp 95.7(C); Pulse Ox 99% on 2 lpm NC; ph 19:15 BP 90 / 48; Pulse 59; Resp 18; Temp 95.7(C); Pulse Ox 99% on 2 lpm NC; ph 19:36 BP 93 / 37; Pulse 58; Resp 18; Temp 95.4(C); Pulse Ox 98% on 2 lpm NC; tl2 19:45 BP 91 / 55; Pulse 57; Resp 20; Pulse Ox 98% on 2 lpm NC; lp1 20:00 BP 96 / 54; Pulse 58; Resp 18; Pulse Ox 99% on 2 lpm NC; lp1 20:15 BP 102 / 72; Pulse 58; Resp 18; Pulse Ox 99% on 2 lpm NC; lp1 [place] Coma Score: 14:26 Eye Response: to voice(3). Verbal Response: oriented(5). Motor Response: obeys ph commands(6). Total: 14. 16:30 Eye Response: spontaneous(4). Verbal Response: oriented(5). Motor Response: obeys ph commands(6). Total: 15. 19:15 Eye Response: spontaneous(4). Verbal Response: oriented(5). Motor Response: obeys ph commands(6). Total: 15. ED Course: 12:54 Patient arrived in ED. ss 13:00 Arm band placed on right wrist. ss 13:09 Joel Hammer MD is Attending Physician. [facility] 13:17 Assisted provider with central line placement. Set up central line tray. Triple lumen ph line placed in right femoral. Line placed by Joel Hammer MD Placement verified by blood return, Dressed with Tegaderm, Blood was collected. Patient tolerated well. line placed for emergent reasons, pt unstable, no consent form signed Before procedure, did Practitioner(s) obtain informed consent? No. Patient \T\ family education about procedure, CLABSI prevention and S/S of infection? No. Time-out/Briefing performed prior to start of procedure? Yes. Was handwashing/sanitizing done immediately prior to procedure? Yes. Was patient positioned to in a way to prevent air embolism? Yes. Was procedure site sterilized? Yes, with Was the site allowed to dry? Yes. Was local anesthetic and/or sedation utilized? Yes. During the procedure, did the Practitioner(s) maintain a sterile field? Yes. Were unused ports clamped during insertion? Yes. Was a 2nd qualified MD obtained after 3 unsuccessful insertion attempts? No. Was blood aspirated from each lumen? Yes. After the procedure, did the Practitioner(s) clean the site and apply a sterile dressing? Yes. 13:18 Patient placed on transcutaneous pacer. Capture obtained as noted by pacing spikes on ph monitoring and evaluation advisor. Pacer set at 45mA. 13:20 Patient placed on transcutaneous pacer. mA changed to 50mA. ph 13:29 Patient placed on transcutaneous pacer. Note: pacing paused. ph 13:35 Cline cath inserted, using sterile technique, 16 Fr., by me, balloon inflated, to ph gravity drainage, other no urine output noted. 13:53 Triage completed. ss 14:00 Thermoregulation: Fabrizio blanket applied. ph 14:05 Oxygen administration via nasal cannula \T\ 2L/min. ph 14:10 Patient placed on transcutaneous pacer. Capture obtained as noted by pacing spikes on ph monitoring and evaluation advisor. Pacer set at 45mA. 14:20 Patient placed on transcutaneous pacer. Note: pacing paused. ph 14:24 Janie Johnson, CHIQUITA is Primary Nurse. ph 14:39 Epifanio Manley DO is Hospitalizing Provider. kdr 14:53 Patient has correct armband on for positive identification. Placed in gown. Bed in low ph position. Call light in reach. Side rails up X2. shelter monitor on. Pulse ox on. NIBP on. Warm blanket given. 15:21 X-ray completed. Portable x-ray completed in exam room. Patient tolerated procedure la2 well. 15:24 XRAY Chest (1 view) In Process Unspecified. EDMS 17:55 Assisted provider with central line placement. Set up central line tray. double lumen ph taylor dialysis catheter in right femoral. Line placed by Jarred Faith MD Placement verified by blood return, Dressed with 4X4s, Tape, Tegaderm, Patient tolerated well. Before procedure, did Practitioner(s) obtain informed consent? Yes. Patient \T\ family education about procedure, CLABSI prevention and S/S of infection? Yes. Time-out/Briefing performed prior to start of procedure? Yes. Was handwashing/sanitizing done immediately prior to procedure? Yes. Was patient positioned to in a way to prevent air embolism? Yes. Was procedure site sterilized? Yes, with betadine/ provider preference. Was the site allowed to dry? Yes. Was local anesthetic and/or sedation utilized? Yes. During the procedure, did the Practitioner(s) maintain a sterile field? Yes. Were unused ports clamped during insertion? Yes. Was a 2nd qualified MD obtained after 3 unsuccessful insertion attempts? No. Was blood aspirated from each lumen? Yes. After the procedure, did the Practitioner(s) clean the site and apply a sterile dressing? Yes. 18:45 Assisted provider with central line placement. Set up central line tray. Triple lumen ph line placed in left femoral. Line placed by Jarred Faith MD Placement verified by blood return, Dressed with Tegaderm, Patient tolerated well. Before procedure, did Practitioner(s) obtain informed consent? Yes. Patient \T\ family education about procedure, CLABSI prevention and S/S of infection? Yes. Time-out/Briefing performed prior to start of procedure? Yes. Was handwashing/sanitizing done immediately prior to procedure? Yes. Was patient positioned to in a way to prevent air embolism? Yes. Was procedure site sterilized? Yes, with betadine/provider preference. Was the site allowed to dry? Yes. Was local anesthetic and/or sedation utilized? Yes. During the procedure, did the Practitioner(s) maintain a sterile field? Yes. Were unused ports clamped during insertion? Yes. Was a 2nd qualified MD obtained after 3 unsuccessful insertion attempts? No. Was blood aspirated from each lumen? Yes. After the procedure, did the Practitioner(s) clean the site and apply a sterile dressing? Yes. Patient admitted, IV remains in place. 20:15 Patient admitted, IV remains in place. lp1 Administered Medications: 13:22 Drug: Calcium Chloride 1 grams Route: IVP; Site: right femoral; ph 19:30 Follow up: Response: No adverse reaction ph 13:23 Drug: Sodium Bicarbonate 1 amp Route: IVP; Site: right femoral; ph 19:30 Follow up: Response: No adverse reaction ph 13:23 Drug: Sodium Bicarbonate 1 amp Route: IVP; Site: right femoral; ph 19:29 Follow up: Response: No adverse reaction ph 13:24 Drug: Insulin Regular Human 10 units {Co-Signature: [email or web address] (Rachel Wen RN).} Route: IVP; ph Site: right femoral; 19:29 Follow up: Response: No adverse reaction ph 13:25 Drug: D50W 50 ml Route: IVP; Site: right femoral; ph 19:29 Follow up: Response: No adverse reaction ph 13:25 Drug: NS 0.9% 500 ml Route: IV; Rate: bolus; Site: right femoral; ph 19:28 Follow up: Response: No adverse reaction; IV Status: Completed infusion; IV Intake: ph 500ml 13:36 Drug: Dopamine drip 5 mcg/kg/min - (DOPamine 400 mg, D5W 250 ml) {Note: initiated at 10 ph mcg/kg/min.} Route: IV; Rate: calculated rate; Site: right femoral; 21:00 Follow up: IV Status: Infusion continued upon admission lp1 Point of Care Testing: Blood Glucose: 13:14 Blood Glucose: 70 mg/dL; dh3 14:26 Blood Glucose: 157 mg/dL; ph Ranges: Intake: 14:26 IV: 500ml (IV Fluid); Total: 500ml. ph 19:28 IV: 500ml; Total: 1000ml. ph Output: 14:26 Urine: 0ml; Total: 0ml. ph Outcome: 14:41 Decision to Hospitalize by Provider. kdr 20:15 Admitted to ICU accompanied by nurse, accompanied by tech, via stretcher, room 6, with lp1 oxygen, on monitor, with chart, Report called to CHIQUITA Sheldon 20:15 Condition: stable 20:15 Discharge instructions given to patient, family, Instructed on the need for admit. 21:00 Patient left the ED. lp1 Signatures: Dispatcher [employer] EDMS Joel Hammer MD MD kdr Therrien, Shelly, REVIEWER SALES-C REVIEWER SAL[employer] Rebecca Conway RN RN ss Pena, Laura, RN RN lp1 Janie Johnson RN RN ph Pau Nunez, WAX BALL MOLDER WAX BALL MOLDER 1 Brittany Bolivar RN RN tl2 Iona Aguilar [facility] Patricia Gentile [facility] Rachel Wen RN jl7 Corrections: (The following items were deleted from the chart) 14:41 13:45 Neuro: Level of Consciousness is lethargic, listless, Oriented to person, place, ph time, situation, ph 15:14 13:36 Dopamine drip 5 mcg/kg/min - (DOPamine 400 mg, D5W 250 ml) IV at calculated rate ph in right femoral ph 15:25 13:30 Musculoskeletal: Circulation, motion, and sensation intact. Range of motion: ph intact in all extremities, ph 19:30 19:10 Reassessment: Dr. Faith at bedside inserting central line. Will call ICU for tl2 report after shift change. Pt is AOx4. BP is stable, all fluids will be transferred to central line. Hep lock administered through rajiv cath. tl2
--- NOTE | 2017-12-20 14:42 | EDPHYS ---
Physician Documentation [facility] Name: Nayla Greenberg Age: 82 yrs Sex: Male : 1935 Arrival Date: 12/20/2017 Time: 12:54 Bed 3 Private MD: ED Physician Joel Hammer HPI: 12/20 13:54 This 82 yrs old Male presents to ER via EMS with complaints of poor urine snw output. 13:54 Spouse called EMS 2nd to poor urine output and hx of hyperkalemia. Onset: The snw symptoms/episode began/occurred gradually. Severity of symptoms: At their worst the symptoms were moderate severe. The patient has experienced similar episodes in the past. as noted. Historical: - Allergies: 13:53 adhesive tape-silicones; ss - Home Meds: 19:46 amlodipine 10 mg tab 1 tab once daily [Active]; gabapentin 300 mg Oral cap 1 cap at ph bedtime [Active]; Lasix 40 mg Oral tab once daily [Active]; Lipitor Oral [Active]; metformin 1,000 mg Oral tab 2 times per day [Active]; metoprolol tartrate 25 mg Oral tab 0.5 tab 2 times per day [Active]; multivitamin Oral daily [Active]; Vitamin D Oral 400 unit daily [Active]; - PMHx: 13:53 Diabetes - NIDDM; Hyperlipidemia; Hypertension; muscle atrophy; paralysis; RENAL ss FAILURE; - Immunization history:: Adult Immunizations unknown. - Social history:: Smoking status: unknown. - Ebola Screening: : No symptoms or risks identified at this time. ROS: 13:54 Eyes: Negative for injury, pain, redness, and discharge, ENT: Negative for injury, snw pain, and discharge, Neck: Negative for injury, pain, and swelling, Cardiovascular: Negative for chest pain, palpitations, and edema, Respiratory: Negative for shortness of breath, cough, wheezing, and pleuritic chest pain, Abdomen/GI: Negative for abdominal pain, nausea, vomiting, diarrhea, and constipation, Back: Negative for injury and pain, MS/Extremity: Negative for injury and deformity, Skin: Negative for injury, rash, and discoloration, Neuro: Negative for headache, weakness, numbness, tingling, and seizure. 13:54 Constitutional: Positive for malaise. 13:54 : Positive for poor urine output. Exam: 13:48 Head/Face: Normocephalic, atraumatic. Eyes: Pupils equal round and reactive to light, snw extra-ocular motions intact. Lids and lashes normal. Conjunctiva and sclera are non-icteric and not injected. Cornea within normal limits. Periorbital areas with no swelling, redness, or edema. ENT: Nares patent. No nasal discharge, no septal abnormalities noted. Tympanic membranes are normal and external auditory canals are clear. Oropharynx with no redness, swelling, or masses, exudates, or evidence of obstruction, uvula midline. Mucous membranes moist. 13:48 Chest/axilla: Normal chest wall appearance and motion. Nontender with no deformity. No lesions are appreciated. 13:48 Respiratory: Lungs have equal breath sounds bilaterally, clear to auscultation and percussion. No rales, rhonchi or wheezes noted. No increased work of breathing, no retractions or nasal flaring. 13:48 Back: No spinal tenderness. No costovertebral tenderness. Full range of motion. Skin: Warm, dry with normal turgor. Normal color with no rashes, no lesions, and no evidence of cellulitis. 13:48 Constitutional: The patient appears lethargic, obese, obviously ill. 13:48 Neck: External neck: Left distal neck, anterior chest area with eschar area s/p pressure sore. 13:48 Cardiovascular: Rate: bradycardic, Rhythm: irregular, Pulses: Pulses are 2+ in right brachial artery, right femoral artery, left brachial artery and left femoral artery. Heart sounds: normal, , Edema: lower extremities and some to bilateral arms. 13:48 Abdomen/GI: Inspection: obese 13:48 Musculoskeletal/extremity: some hx of paralysis, but not fully assessed. 13:48 Skin: noted area of eschar to chest wall. 13:48 Neuro: seizure activity, is not displayed by the patient, responsive to physical stimuli. Vital Signs: 13:10 BP 100 / 30; Pulse 64; Resp 12; Pulse Ox 100% on Non-rebreather mask; ph 13:30 BP 108 / 36; Pulse 64; Resp 16; Pulse Ox 100% on Nebulizer Mask; ph 14:20 BP 107 / 44; Pulse 65; Temp 94.5(cline temp); Pulse Ox 98% on R/A; ss 14:40 BP 104 / 48; Pulse 65; Pulse Ox 97% on 2 lpm NC; Pain 0/10; ss 15:00 BP 105 / 66; Pulse 64; Resp 18; Pulse Ox 98% on 2 lpm NC; ph 15:23 BP 103 / 47; Pulse 59; Resp 16; Temp 94.5(C); Pulse Ox 97% on 2 lpm NC; Pain 0/10; ph 15:45 BP 105 / 46; Pulse 59; Resp 16; Temp 94.6(C); Pulse Ox 96% on 2 lpm NC; ph 16:00 BP 104 / 46; Pulse 60; Resp 16; Pulse Ox 97% on 2 lpm NC; ph 16:15 BP 104 / 49; Pulse 59; Resp 18; Temp 94.7(C); Pulse Ox 96% on 2 lpm NC; ph 16:30 BP 94 / 41; Pulse 59; Resp 18; Temp 94.8(C); Pulse Ox 97% on 2 lpm NC; ph 16:45 BP 96 / 42; Pulse 57; Resp 18; Temp 94.9(TE); Pulse Ox 97% on 2 lpm NC; ph 17:00 BP 97 / 41; Pulse 57; Resp 18; Temp 95.1(C); Pulse Ox 98% on 2 lpm NC; ph 17:18 BP 99 / 40; Pulse 57; Resp 18; Temp 95.3(C); Pulse Ox 97% on 2 lpm NC; ph 17:30 BP 98 / 42; Pulse 57; Resp 18; Temp 95.5(C); Pulse Ox 99% on 2 lpm NC; ph 17:45 BP 91 / 50; Pulse 59; Resp 16; Temp 95.6; Pulse Ox 98% on 2 lpm NC; ph 18:00 BP 114 / 50; Pulse 58; Resp 16; Temp 95.7(C); Pulse Ox 99% on 2 lpm NC; ph 18:15 BP 99 / 42; Pulse 60; Resp 20; Temp 95.7(C); Pulse Ox 99% on 2 lpm NC; ph 18:30 BP 102 / 45; Pulse 60; Resp 16; Temp 95.7(C); Pulse Ox 99% on 2 lpm NC; ph 18:45 BP 105 / 51; Pulse 57; Resp 16; Temp 95.6(C); Pulse Ox 97% on 2 lpm NC; ph 19:00 BP 101 / 48; Pulse 61; Resp 16; Temp 95.7(C); Pulse Ox 99% on 2 lpm NC; ph 19:15 BP 90 / 48; Pulse 59; Resp 18; Temp 95.7(C); Pulse Ox 99% on 2 lpm NC; ph 19:36 BP 93 / 37; Pulse 58; Resp 18; Temp 95.4(C); Pulse Ox 98% on 2 lpm NC; tl2 19:45 BP 91 / 55; Pulse 57; Resp 20; Pulse Ox 98% on 2 lpm NC; lp1 20:00 BP 96 / 54; Pulse 58; Resp 18; Pulse Ox 99% on 2 lpm NC; lp1 20:15 BP 102 / 72; Pulse 58; Resp 18; Pulse Ox 99% on 2 lpm NC; lp1 [place] Coma Score: 14:26 Eye Response: to voice(3). Verbal Response: oriented(5). Motor Response: obeys ph commands(6). Total: 14. 16:30 Eye Response: spontaneous(4). Verbal Response: oriented(5). Motor Response: obeys ph commands(6). Total: 15. 19:15 Eye Response: spontaneous(4). Verbal Response: oriented(5). Motor Response: obeys ph commands(6). Total: 15. Procedures: 13:55 Central Line: the site was prepped with Betadine, in sterile fashion, a triple lumen snw catheter was inserted, in the right femoral vein, in 1 attempts. placement was verified, by blood return, the site was dressed with Tegaderm, the patient tolerated the procedure, well, per Dr. Hammer. MDM: 14:41 Patient medically screened. kdr 15:14 Data reviewed: vital signs, nurses notes, lab test result(s), radiologic studies. kdr Counseling: I had a detailed discussion with the patient and/or guardian regarding: the historical points, exam findings, and any diagnostic results supporting the discharge/admit diagnosis, lab results, radiology results, the need for further work-up and treatment in the hospital. 12/20 13:14 Order name: glucometer results - FOR PT WITH NO ID 3 12/20 13:39 Order name: ABG; Complete Time: 14:33 eb 12/20 13:42 Order name: Basic Metabolic Panel; Complete Time: 16:10 [facility] 12/20 13:42 Order name: CBC with Diff; Complete Time: 14:33 [facility] 12/20 13:42 Order name: Ckmb; Complete Time: 16:10 [facility] 12/20 13:42 Order name: CPK; Complete Time: 16:10 [facility] 12/20 13:42 Order name: LFT's; Complete Time: 16:10 [facility] 12/20 13:42 Order name: Magnesium; Complete Time: 16:10 [facility] 12/20 13:42 Order name: NT PRO-BNP; Complete Time: 16:10 [facility] 12/20 13:42 Order name: PT-INR; Complete Time: 14:35 [facility] 12/20 13:42 Order name: Ptt, Activated; Complete Time: 14:35 [facility] 12/20 13:42 Order name: Troponin (emerg Dept Use Only); Complete Time: 16:10 [facility] 12/20 14:25 Order name: Glucose, Ancillary Testing; Complete Time: 14:33 [facility] 12/20 17:23 Order name: Salicylates Level [facility] 12/20 13:42 Order name: XRAY Chest (1 view); Complete Time: 16:10 [facility] 12/20 13:42 Order name: EKG; Complete Time: 13:42 [facility] 12/20 17:24 Order name: Uric Acid [facility] 12/20 17:33 Order name: Lactate [facility] 12/20 17:39 Order name: T4 Free [facility] 12/20 17:39 Order name: Thyroid Stimulating Hormone [facility] 12/20 20:57 Order name: Troponin I [facility] 12/20 20:57 Order name: Lactate Sepsis 2 HR Follow-up [facility] 12/20 20:58 Order name: Acetone Level [facility] 12/20 13:42 Order name: Cardiac monitoring; Complete Time: 14:43 [facility] 12/20 13:42 Order name: EKG - Nurse/Tech; Complete Time: 14:43 [facility] 12/20 13:42 Order name: IV Saline Lock; Complete Time: 14:43 [facility] 12/20 13:42 Order name: Labs collected and sent; Complete Time: 14:43 [facility] 12/20 13:42 Order name: O2 Per Protocol; Complete Time: 14:43 [facility] 12/20 13:42 Order name: O2 Sat Monitoring; Complete Time: 14:43 kdr 12/20 13:56 Order name: Labs - recollect needed; Complete Time: 14:43 eb Administered Medications: 13:22 Drug: Calcium Chloride 1 grams Route: IVP; Site: right femoral; ph 19:30 Follow up: Response: No adverse reaction ph 13:23 Drug: Sodium Bicarbonate 1 amp Route: IVP; Site: right femoral; ph 19:30 Follow up: Response: No adverse reaction ph 13:23 Drug: Sodium Bicarbonate 1 amp Route: IVP; Site: right femoral; ph 19:29 Follow up: Response: No adverse reaction ph 13:24 Drug: Insulin Regular Human 10 units {Co-Signature: jl7 (Rachel Wen RN).} Route: IVP; ph Site: right femoral; 19:29 Follow up: Response: No adverse reaction ph 13:25 Drug: D50W 50 ml Route: IVP; Site: right femoral; ph 19:29 Follow up: Response: No adverse reaction ph 13:25 Drug: NS 0.9% 500 ml Route: IV; Rate: bolus; Site: right femoral; ph 19:28 Follow up: Response: No adverse reaction; IV Status: Completed infusion; IV Intake: ph 500ml 13:36 Drug: Dopamine drip 5 mcg/kg/min - (DOPamine 400 mg, D5W 250 ml) {Note: initiated at 10 ph mcg/kg/min.} Route: IV; Rate: calculated rate; Site: right femoral; 21:00 Follow up: IV Status: Infusion continued upon admission lp1 Point of Care Testing: Blood Glucose: 13:14 Blood Glucose: 70 mg/dL; dh3 14:26 Blood Glucose: 157 mg/dL; ph Ranges: Critical Glucose Levels:Adult <50 mg/dl or >400 mg/dl <40 mg/dl or >180 mg/dl Disposition: 14:38 Co-signature as Attending Physician, Joel Hammer MD I agree with the assessment and kdr plan of care. Disposition: 12/20/17 14:41 Hospitalization ordered by Epifanio Manley for Inpatient Admission. Preliminary diagnosis is Cardiac dysrhythmia, cardiac arrest, altered mental status.. - Bed requested for Intensive Care Unit. - Status is Inpatient Admission. lp1 - Condition is Serious. - Problem is new. - Symptoms have improved. UTI on Admission? No Signatures: Dispatcher [employer] EDMS Joel Hammer MD MD [facility] Reina Mitchell, BODY SHOP FLOORPERSON-C [employer] FLOORPERSON-Csnw Rebecca Conway, CHIQUITA RN Candice Palacios RN RN lp1 Janie Johnson RN RN Mary Gaytan Rachel Wen RN jl7 Corrections: (The following items were deleted from the chart) 16:17 14:41 Hospitalization Ordered by Epifanio Manley DO for Inpatient Admission. Preliminary eb diagnosis is Cardiac dysrhythmia, cardiac arrest, altered mental status.. Bed requested for Intensive Care Unit. Status is Inpatient Admission. Condition is Serious. Problem is new. Symptoms have improved. UTI on Admission? No. kdr 21:00 13:42 Urine Dipstick-Ancillary ordered. kdr lp1 21:00 16:17 12/20/2017 14:41 Hospitalization Ordered by Epifanio Manley DO for Inpatient 1 Admission. Preliminary diagnosis is Cardiac dysrhythmia, cardiac arrest, altered mental status.. Bed requested for Intensive Care Unit. Status is Inpatient Admission. Condition is Serious. Problem is new. Symptoms have improved. UTI on Admission? No. eb
[2017-12-20 14:44] LABS: Albumin 3.1 g/dL (3.4-5.0); Bilirubin Direct 0.1 mg/dL (0-0.2); Bilirubin Total 0.4 mg/dL (0.2-1.0); CKMB Creatine Kinase MB 5.9 ng/mL (0.3-3.6); Magnesium 1.9 mg/dL (1.8-2.4); Protein, Total 6.8 g/dL (6.4-8.2)
[2017-12-20 14:46] LABS: Potassium 6.4 mmol/L (3.5-5.1)
--- NOTE | 2017-12-20 15:29 | RAD REPORT ---
EXAM DESCRIPTION: RAD - Chest Single View - 12/20/2017 3:24 pm CLINICAL HISTORY: AMS;Chest pain Chest pain. COMPARISON: Chest Single View dated 12/10/2017; Chest Single View dated 11/18/2017; Chest Single View dated 09/12/2017; Chest Single View dated 09/09/2017 FINDINGS: Portable technique limits examination quality. Mild interstitial pulmonary edema is noted. The heart is upper limit normal in size with a tortuous t horacic aorta. No displaced fractures. IMPRESSION: Mild CHF versus volume overload pattern.
[2017-12-20] MEDS ORDERED: ALBUTEROL 2.5 MG/3 ML NEB SOL NEB PRN (15:45)
[2017-12-20] MEDS ORDERED: ONDANSETRON 4 MG/2 ML VIAL IV PRN (15:52)
[2017-12-20] MEDS ORDERED: ACETAMINOPHEN 650MG/RECT SUPP PR PRN (15:52)
[2017-12-20] MEDS ORDERED: CALCIUM GLUC 10% INJ 4.65 MEQ in NA CHLORIDE 0.9% 100 ML IV ONE (16:13)
[2017-12-20] MEDS: INSULIN -REGULAR HUMAN 50 UNIT/0.5 ML ML SQ SCH ×3 (16:30→22:06)
--- NOTE | 2017-12-20 16:34 | P.HP ---
Certification for Inpatient Patient admitted to: Inpatient With expected LOS: >2 Midnights Patient will require the following post-hospital care: Other Practitioner: I am a practitioner with admitting privileges, knowledge of patient current condition, hospital course, and medical plan of care. Services: Services provided to patient in accordance with Admission requirements found in Title 42 Section 412.3 of the Code of Federal Regulations Patient History Date of Service: 12/20/17 Primary Care Provider: Dr. Roman; Nephrology-Dr. Sainz Reason for admission: Shortness of breath, edema History of Present Illness: 82-year-old male presented emergency room with increasing shortness of breath, edema to the lower extremities and body. Patient was recently hospitalized from December 10 to for acute renal failure with lactic acidosis, nephrotic syndrome, hyperkalemia. It appears it was related to medication-metformin. Patient reports being discharge and having a renal biopsy in [place] after that time. Since being discharge he has been having increasing shortness of breath, edema to the upper and lower extremities. He also reports increasing fatigue. The called EMS today due to increase fatigue. In the ER patient was hypothermic. Patient found to be with hyperkalemia. Patient was given bicarb, insulin, and calcium. Patient was also bradycardic in the emergency room. At times his heart rate would drop down below 30. The patient had asystole in the emergency room. He was paced in the emergency room. Patient was placed on a dopamine drip due to hypotension. Since that time patient remained stable. Blood pressure 107/43 heart rate 60s. White count 13.4, hemoglobin 9.6. Sodium 130, potassium 6.4. Bicarb of 8 BUN of 86, creatinine 5.2 with a GFR of 11. On his gases pH is 7.28 with the PCO2 of 20 and a bicarb of 9.2. Troponin less 0.02. BNP at 3700. Patient remains stable in the emergency room. Nurses did address advance directives with the patient and . Patient is DNR. When I came to about weight the patient, patient was alert. Patient remained stable with bear hugger to help with his hypothermia. Patient on dopamine drip. Patient did not appear in any respiratory distress. Allergies adhesive tape Adverse Reaction (Intermediate, Verified 07/04/16 15:25) Rash adhesive tape- Allergy (Uncoded 12/10/17 22:06) Unknown No Allergy (Uncoded 07/09/17 23:14) Unknown No Known Allergies Allergy (Uncoded 09/09/17 21:28) Unknown Home medications list reviewed: Yes Home Medications: Metoprolol Tartrate [Lopressor*] 12.5 mg PO BID 05/02/15 Multivitamin [Multivitamins] 1 each PO DAILY 07/05/15 Cholecalciferol (Vitamin D3) [Vitamin D 400 IU TAB*] 1,200 unit PO DAILY Furosemide [Lasix] 40 mg PO DAILY 07/04/16 Gabapentin [Gralise] 300 mg PO BEDTIME 07/04/16 Amlodipine [Norvasc*] 10 mg PO DAILY #30 tab 07/06/16 Atorvastatin Calcium [Lipitor*] 20 mg PO BEDTIME 12/11/17 glyBURIDE [Glyburide] 1.25 mg PO BID #60 tablet 12/14/17 - Past Medical/Surgical History Diabetic: Yes -: Hyperlipidemia -: HTN -: Diabetes mellitus type 2 -: Chronic renal disease likely with nephrotic syndrome -: History of myasthenia gravis -: Peripheral neuropathy -: Cataracts -: broken leg 2005 -: finger surgery -: prostate surgery Psychosocial/ Personal History: Patient is . He has 3 children. - Family History Father -: Heart disease Mother -: Hypertension Sister -: Hypertension, Diabetes, Cancer, Kidney disease Brother -: Heart disease, Cancer - Social History Smoking Status: Never smoker Alcohol use: No CD- Drugs: No Caffeine use: Yes Place of Residence: Home Review of Systems General: Chills, Weakness, Malaise, As per HPI Eyes: Unremarkable ENT: Unremarkable Respiratory: Shortness of Breath, SOB with Excertion, As per HPI Cardiovascular: Orthopnea Gastrointestinal: Nausea, Vomiting, As per HPI Genitourinary: As per HPI (Poor urinary output) Musculoskeletal: Pedal edema, As per HPI Integumentary: As per HPI Neurological: Weakness, As per HPI Lymphatics: Unremarkable Physical Examination - Physical Exam General: Alert, In no apparent distress, Oriented x3, Cooperative HEENT: Atraumatic, Normocephalic Neck: Supple, Other (There is a black eschar ulcer to the left clavicular region.) Respiratory: Clear to auscultation bilaterally (Clear anteriorly) Cardiovascular: Normal pulses Gastrointestinal: Normal bowel sounds, Soft and benign, Non-distended, No tenderness, No masses, No rebound, No guarding, Other (Patient morbidly obese) Musculoskeletal: No tenderness, No warmth Integumentary: Tenderness/swelling (Anasarca noted to the lower extremities, abdomen and upper extremities.) Neurological: Normal speech, Normal strength at 5/5 x4 extr, Normal tone, Normal affect - Studies Laboratory Data (last 24 hrs) 12/20/17 14:10: PT 13.4 H, INR 1.13, APTT 32.4 12/20/17 14:10: WBC 13.4 H D, Hgb 9.6 L, Hct 29.8 L, Plt Count 481 H 12/20/17 14:10: Sodium 130 L, Potassium 6.4 H*, BUN 86 H D, Creatinine 5.20 H* D , Glucose 156 H, Magnesium 1.9, Total Bilirubin 0.4, AST 32, ALT 39, Alkaline Phosphatase 147 H Assessment and Plan - Problems (Diagnosis) (1) Renal failure (ARF), acute on chronic Current Visit: Yes Status: Acute Plan: Acute on chronic renal failure with metabolic acidosis, hypothermia, hyperkalemia. Case discussed at length with nephrology. Patient reports recent renal biopsy for possible nephrotic syndrome. This was done up in [place]. Patient will need emergent dialysis. Agreed to place Bipin catheter. This will be done prior to patient going to the ICU. Patient will receive emergent dialysis today. Patient will need to continue with a bicarb drip. Patient on dopamine to maintain blood pressure. Case also discussed with cardiology. Qualifiers: Chronic kidney disease stage: stage 5, not on chronic dialysis (2) Hyperkalemia Current Visit: Yes Status: Acute Plan: Patient received bicarb, insulin and calcium in the emergency room. Patient will receive emergent dialysis. (3) Bradycardia Current Visit: Yes Status: Acute Plan: Bradycardia improved. Will continue with dopamine to maintain blood pressure. (4) Asystole Current Visit: Yes Status: Acute Plan: Patient was initially paced any emergency room. Will continue monitor closely. Advanced directives address in detail. Patient wishes to be DNR. This was addressed with nurses present. This apparently was addressed by the to the nurse earlier. (5) Hypothermia Current Visit: Yes Status: Acute Plan: Will continue with kvng grider. Qualifiers: Encounter type: initial encounter Qualified Code(s): T68.XXXA - Hypothermia , initial encounter (6) Metabolic acidosis Current Visit: Yes Status: Acute Plan: Secondary to acute renal failure. Continue as above. Patient will receive dialysis. (7) Anasarca Onset Date: 12/15/17 Current Visit: No Status: Acute Plan: Patient will receive dialysis. (8) Diabetes Onset Date: 09/10/17 Current Visit: No Status: Chronic Plan: Will continue Accu-Cheks. Provide sliding scale. Qualifiers: Diabetes mellitus type: type 2 Diabetes mellitus care home insulin use: without care home use Diabetes mellitus complication status: with unspecified complications Qualified Code(s): E11.8 - Type 2 diabetes mellitus with unspecified complications (9) HTN (hypertension) Onset Date: 09/10/17 Current Visit: No Status: Chronic Plan: Will hold blood pressure medication at this time. Patient currently on dopamine Qualifiers: Hypertension type: essential hypertension Qualified Code(s): I10 - Essential (primary) hypertension (10) Hypotension Current Visit: Yes Status: Acute Plan: Patient with hypotension. Continue dopamine drip to maintain blood pressure. Patient will receive dialysis. Blood cultures obtained. Will check pro calcitonin and lactic acid. Discharge Plan: Home Plan to discharge in: Greater than 2 days - Advance Directives Does patient have a Living Will: No Does patient have a Durable POA for Healthcare: Yes - Code Status/Comfort Care Code Status Assessed: Yes (This was addressed in detail. Patient DNR.) Time Spent Managing Pts Care (In Minutes): 65
[2017-12-20] MEDS: D5W 1,000 ML with NA BICARB 8.4% 150 MEQ IV SCH ×2 (17:35)
[2017-12-20] MEDS ORDERED: MANNITOL 25% 12.5 GM/50 ML VIAL IV PRN ×2 (17:37→21:52)
[2017-12-20] MEDS ORDERED: NA CHLORIDE 0.9% 1,000 ML IV PRN (17:37)
[2017-12-20 17:39] LABS: Thyroid Stimulating Hormone 6.46 uIU/mL (0.36-3.74)
[2017-12-20] MEDS ORDERED: BUPIVACAINE 0.5% PF 10 ML VIAL ONE (17:55)
[2017-12-20] MEDS ORDERED: HEPARIN 500 UNIT/5 ML SYR IV ONE (18:01)
--- NOTE | 2017-12-20 19:08 | OP ---
Date of Procedure: 12/20/2017 Surgeon: Jarred Faith MD Preoperative Diagnosis: End-stage renal disease. Postoperative Diagnosis: End-stage renal disease. Procedures: Placement of a Bipin hemodialysis catheter on the right femoral vein. Anesthesia: Local. Indications: This is the case of an 82-year-old patient in need of emergent dialysis, so they called for emergent placement of a catheter here in the ER. After explaining the benefits, alternatives, a nd risks which include but are not limited to infection, bleeding, damage to adjacent structures, ane sthesia complication, deep vein thrombosis, PE, GA, and even , a consent was obtained. Procedure In Detail: The patient was placed in supine position. Right femoral region was prepped an d draped in a sterile fashion. The patient has a central line in that place already in the right ___ , but the distal port is not flushing, so we did not feel it was secure enough to use that arturo e as a guidance, so we removed that line. Pressure was applied. I then proceeded to inject the area with local anesthetic followed by 18-gauge needle insertion. On the first attempt, guidewire was pa ssed through needle was removed. were placed in and then a catheter was placed in and the guidewire was removed. The area was secured with nylon. Excellent backflow and inflow. The line was flushed with heparin saline. The patient tolerated the procedure well. SONAL/DIEUDONNE Voice ID: [id number] Report ID: [id number]
--- NOTE | 2017-12-20 19:13 | CON ---
Date of Consultation: 12/20/2017 Reason For Consultation: Renal failure. Indications: This is a case of an 82-year-old patient, who comes to us with multiple medical problem s including hypotension, renal failure, in need for emergent dialysis, so I was called to put in an e mergent dialysis catheter. Currently, the patient is on vasoconstrictors. The patient is in ER. Mo st of the information is obtained from the family and from the chart. Past Medical History: Diabetes, hypertension, renal failure. Allergies: SILICONE. Social History: He does not smoke. He does not drink alcohol. Family History: Noncontributory. Review of Systems: Unable to be obtained. Physical Examination: General: The patient is awake, alert, in no distress. HEENT: Pupils are anicteric. Neck: Supple. Chest: Clear. Abdomen: Soft and depressible. Extremities: Over the right groin area, patient has a central line placed by the ER physician previo usly. The distal port is not flushing or been able to draw some blood, so the central line will be r emoved. No cyanosis. Laboratory Data: Blood work shows sodium is 130, potassium 6.4, CO2 . WBC count 13.4, hem oglobin is 9.6. INR within normal limits. Assessment: This is a male, who comes to us in need of emergent hemodialysis catheter, so he was amy led to come to the ER emergently to put a Bipin catheter. The patient was explained and the family of the benefits, alternatives, and risks of placement which include but not limited to infection, bl eeding, damage to adjacent structures, anesthesia complication, deep vein thrombosis, myocardial infa rction, and even . He also understands this may not relieve the symptoms. He might need more t apple one surgical intervention. The patient is hypotensive at this moment and they need this emergent ly, so we will proceed to obtain the kit immediately. See my procedure note. SONAL/DIEUDONNE Voice ID: [id number] Report ID: [id number]
[2017-12-20 21:02] LABS: CKMB Creatine Kinase MB 6.5 ng/mL (0.3-3.6)
[2017-12-20 21:14] LABS: Phosphorus 10.6 mg/dL (2.5-4.9)
[2017-12-20] MEDS ORDERED: MANNITOL 25% 50 ML IV ONE (22:01)
--- NOTE | 2017-12-20 23:58 | OP ---
Date of Procedure: 12/20/2017 Surgeon: Jarred Faith MD Procedure: Emergent left femoral vein central line placement. Diagnosis: End-stage renal disease. Anesthesia: Local. Estimated Blood Loss: Less than 10 cc. Indications: This is the case of an 82-year-old patient, who received an emergent hemodialysis elvia ter on the right femoral vein. Now they asked us to put an emergent central line on the left femoral vein since the patient has hypotension and need . The patient explained once again the be nefits, alternatives, and risks of this procedure which include, but not limited to infection, bleedi ng, damage to adjacent structures, anesthesia complication, DVT, bleeding and hematomas, [place] and even and they signed a consent. Description Of Procedure: Left femoral area was prepped and draped in a sterile fashion. A time-out was called. Local anesthesia was applied. An 18-gauge needle was placed in left femoral vein. Dil ator was placed through followed by putting a central line lumen using Seldinger technique. The guid ewire was removed, central line was secured in place and flushed with saline. The patient tolerated the procedure well. The reason we put a central line on the left side is that the patient on the lef t neck and chest has an open wound in that region of unknown etiology, large with some devitalized ti ssue present. On the right neck and chest the patient is so swollen that it is hard to pin point his anatomy. Eventually this catheters will have to be changed in upper body when he is stable in next few days. SONAL/DIEUDONNE Voice ID: [id number] Report ID: [id number]
[2017-12-21] MEDS ORDERED: NA CHLORIDE 0.9% 1,000 ML IV PRN (00:10)
[2017-12-21 01:23] LABS: Potassium 4.4 mmol/L (3.5-5.1)
[2017-12-21] MEDS: DOPAMINE/D5W 400 MG/250 ML BAG IV PRN ×3 (01:48→23:34)
[2017-12-21] MEDS: D5W 1,000 ML with NA BICARB 8.4% 150 MEQ IV SCH ×2 (04:30)
[2017-12-21 05:21] LABS: Absolute Lymphocytes (CBC) 1.2 K/uL (0.7-4.9); Absolute Monocytes 1.1 K/uL (0.1-1.3); Absolute Neutrophil 3.8 K/uL (1.8-8.0); Hematocrit 22.8 % (39.6-49.0); MCH 29.8 pg (27.0-35.0); MCV 85.7 fL (80-100); RBC Red Blood Cell Count 2.66 M/uL (4.33-5.43)
[2017-12-21 05:25] LABS: Basophils % 0.6 % (0-1.3); Eosinophils % 0.4 % (0-4.4); Lymphocytes % 19.2 % (15.3-44.8); MPV 7.5 fL (7.6-11.3); Monocytes % 18.4 % (3.3-12.3)
[2017-12-21 05:42] LABS: Albumin 2.7 g/dL (3.4-5.0); Bilirubin Total 0.4 mg/dL (0.2-1.0); CKMB Creatine Kinase MB 5.8 ng/mL (0.3-3.6); Magnesium 1.7 mg/dL (1.8-2.4); Potassium 4.1 mmol/L (3.5-5.1); Protein, Total 5.8 g/dL (6.4-8.2)
[2017-12-21] MEDS: PANTOPRAZOLE 40MG TABLET PO SCH (06:22)
[2017-12-21] MEDS: INSULIN -REGULAR HUMAN 50 UNIT/0.5 ML ML SQ SCH ×4 (07:30→20:53)
[2017-12-21] MEDS ORDERED: MAGNESIUM SULFATE 1 gm IVPB 1 GM/100 ML BAG IV ONE (08:00)
--- NOTE | 2017-12-21 09:34 | EKG ---
Test Date: 2017-12-20 Test Time: 13:28:59 Director University: [employer] MEASUREMENT RESULTS: Intervals: Rate: 61 NV: QRSD: 102 QT: 452 QTc: 455 [place]: P: NV: QRS: 5 T: 32 INTERPRETIVE STATEMENTS: Sinus rhythm Normal ECG Compared to ECG 12/10/2017 17:44:19 no significant change from previous ECG Electronically Signed On 12-21-17 09:33:31 CDT by Nickolas Jiang
--- NOTE | 2017-12-21 10:51 | CON ---
History Of Present Illness: Mr. Greenberg came to our hospital with weakness, dizziness, nausea, vomitin g, basically symptoms of uremia. He had profound metabolic abnormalities. I am consulted because he was having some bradycardia and hypotension. Overnight, he has had dialysis. He feels much better. His hemoglobin has fallen from 9.6 to 7.9. His initial potassium was 6.4, creatinine 5.2. Now, po tassium is 4.1, creatinine 3.5. Blood sugars are all elevated. Troponins are normal. N-terminal pr oBNP is 4126, not surprising with renal failure. He had some bradycardia with severe sinus bradycard ias and pauses that were caused by blocked PACs. All that seems to have resolved since he got dialys is last night. Past Medical History: Significant for hypertension, diabetes, dyslipidemia, renal failure, recently had a renal biopsy. He was told everything was normal, but I think what they meant was that he did n ot have any renal injury that would respond to steroids or other immune system modulation that was ju st related to the underlying diabetes and hypertension. Medications: We do not have an accurate list of home medicines at this point. He has been on a dopa mine drip that is titrated down to 0. Physical Examination: General: He is alert, oriented, pleasant, appears to be at his stated age of 82, 5 feet 8 inches, 22 6 pounds, obese, alert, oriented, pleasant. Lungs: Clear. Heart: S4 gallop. Abdomen: Soft. Extremities: Revealed a lot of abnormalities. It looks like there are chronic venous stasis changes and lot of cutaneous changes. 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 Stiven jean-baptiste has a wound above his left clavicle, supraclavicular fossa. It looks like it is starting to heal a nd granulate, and apparently is from another central line placement that soured. He has been a patient at the [facility]. He now seems to understand and grasp that he is going to n eed chronic hemodialysis to stay healthy and he believe he wants to work with nephrologists here. Th e only cardiac workup I would like to do on him is an echocardiogram that is already scheduled for to [facility]. It will be fine we will do it here at the bedside. Thank you very much for your kind referral of Mr. Greenberg. I will follow him with you. IDALMIS Voice ID: [id number] Report ID: [id number]
--- NOTE | 2017-12-21 12:12 | P.PN ---
Subjective Date of Service: 12/21/17 Primary Care Provider: Dr. Roman; Nephrology-Dr. Sainz Chief Complaint: Shortness of breath, edema Subjective: Improving (Patient has significantly improved since yesterday. Patient received emergent dialysis yesterday.) Physical Examination - Vital Signs Temperature: 98 F Blood Pressure: 113/39 Pulse: 77 Respirations: 15 Pulse Ox (%): 100 - Physical Exam General: Alert, In no apparent distress, Oriented x3, Cooperative HEENT: Atraumatic Neck: Supple Respiratory: Clear to auscultation bilaterally, Normal air movement Cardiovascular: Normal pulses, Regular rate/rhythm Gastrointestinal: Normal bowel sounds, Soft and benign, Non-distended, No masses , No rebound, No guarding Integumentary: Tenderness/swelling (Anasarca noted throughout.) Neurological: Normal speech, Normal strength at 5/5 x4 extr, Normal tone, Normal affect - Studies Laboratory Data (last 24 hrs) 12/20/17 14:10: PT 13.4 H, INR 1.13, APTT 32.4 12/20/17 14:10: WBC 13.4 H D, Hgb 9.6 L, Hct 29.8 L, Plt Count 481 H 12/20/17 14:10: Sodium 130 L, Potassium 6.4 H*, BUN 86 H D, Creatinine 5.20 H* D , Glucose 156 H, Magnesium 1.9, Total Bilirubin 0.4, AST 32, ALT 39, Alkaline Phosphatase 147 H Medications List Reviewed: Yes Assessment & Plan - Problems (Diagnosis) (1) Renal failure (ARF), acute on chronic Current Visit: Yes Status: Acute Plan: Acute on chronic renal failure with metabolic acidosis, hypothermia, hyperkalemia. Overall improved with dialysis. Will try to obtain recent biopsy done in [place]. Case discussed with his son. Patient will likely need chronic dialysis. This was addressed in detail with the patient. Patient understands this. He seems willing to continue with this. Will discuss with nephrology. Renal function unchanged. Hyperkalemia resolved. Qualifiers: Chronic kidney disease stage: stage 5, not on chronic dialysis (2) Hyperkalemia Current Visit: Yes Status: Acute Plan: Resolved with dialysis. Will continue to monitor closely. (3) Bradycardia Current Visit: Yes Status: Acute Plan: Bradycardia improved. Will continue with dopamine to maintain blood pressure. Cardiology recommends echocardiogram. (4) Asystole Current Visit: Yes Status: Acute Plan: Patient was initially paced any emergency room. Will continue monitor closely. Advanced directives address in detail. Patient wishes to be DNR. This was addressed with nurses present. This apparently was addressed by the to the nurse earlier. (5) Hypothermia Current Visit: Yes Status: Acute Plan: Will continue with bear hugger. Qualifiers: Encounter type: initial encounter Qualified Code(s): T68.XXXA - Hypothermia , initial encounter (6) Metabolic acidosis Current Visit: Yes Status: Acute Plan: Secondary to acute renal failure. Improved with dialysis. Await further recommendations from nephrology. (7) Anasarca Onset Date: 12/15/17 Current Visit: No Status: Acute Plan: Patient will continue with dialysis. (8) Diabetes Onset Date: 09/10/17 Current Visit: No Status: Chronic Plan: Will continue Accu-Cheks. Provide sliding scale. Qualifiers: Diabetes mellitus type: type 2 Diabetes mellitus watermelon inspector insulin use: without watermelon inspector use Diabetes mellitus complication status: with unspecified complications Qualified Code(s): E11.8 - Type 2 diabetes mellitus with unspecified complications (9) HTN (hypertension) Onset Date: 09/10/17 Current Visit: No Status: Chronic Plan: Will hold blood pressure medication at this time. Blood pressure stable at this time Qualifiers: Hypertension type: essential hypertension Qualified Code(s): I10 - Essential (primary) hypertension (10) Hypotension Current Visit: Yes Status: Acute Plan: Patient with hypotension. Will wean off dopamine. (11) Anemia Current Visit: Yes Status: Chronic Plan: Likely of chronic disease. Will check and monitor hemoglobin. Patient may require blood transfusion if hemoglobin below 7.0. Qualifiers: Anemia type: due to chronic kidney disease Chronic kidney disease stage: stage 5, not on chronic dialysis Qualified Code(s): N18.5 - Chronic kidney disease, stage 5; D63.1 - Anemia in chronic kidney disease Discharge Plan: Other (Patient will likely need skilled placement at discharge) Plan to discharge in: Greater than 2 days Time Spent Managing Pts Care (In Minutes): 55
[2017-12-21 14:13] LABS: Hematocrit 22.8 % (39.6-49.0)
--- NOTE | 2017-12-21 16:51 | RAD REPORT ---
EXAM DESCRIPTION: RAD - Chest Single View - 12/21/2017 3:49 pm CLINICAL HISTORY: CHF, dialysis patient COMPARISON: December 12 TECHNIQUE: AP portable chest image was obtained 1529 hours . FINDINGS: Lung volumes are low. Interstitial and alveolar opacities have improved. Vasculature is sl ightly less prominent. Heart size is also diminished slightly in size. Resuscitation paddles have bee n removed. No new tube or line. No measurable pleural effusion and no pneumothorax. No gross bony abn ormality seen. No acute aortic findings suspected. IMPRESSION: Improvement but incomplete resolution of CHF/ volume overload pattern.
[2017-12-21] MEDS: ALBUMIN HUMAN 25% 50 ML IV SCH ×2 (17:44→18:06)
--- NOTE | 2017-12-22 03:49 | CON ---
Date of Consultation: 12/21/2017 Chief Complaint/history Of Present Illness: Acute kidney injury on advanced chronic kidney disease. The patient has chronic kidney disease stage 4 advancing to stage 5. Recently, he underwent renal biopsy in [facility]. 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 The patient presented to the hospital because of generalized weakness. He was found to have hypotension. He required pressors. He was found to have hyperkalemia, severe metabolic acidosis, and lactic acid and ketones were evaluated and acetone was positive. The patient has history of diabetes mellitus, insulin dependent. The patient required emergent dialysis to control metabolic acidosis associated with hyperkalemia and bradycardia. The patient was admitted to ICU for hypotension and was started on pressor. Lab work obtained in the emergency room showed severe electrolyte abnormalities. Potassium was 6.4, chloride 98, carbon dioxide 18, and BUN 86, creatinine 5.2, glucose 156, lactic acid was 9.0 , calcium 7.9, magnesium 1.9. CK level was 81. Troponin less than 0.02. BNP was 3723. The patient was found to have severe fluid overload, anasarca, and had dopamine started for hypotension. Emergent procedure with temporary dialysis catheter was ordered, and the patient received dialysis and ultrafiltration was done for congestive heart failure. Chest x-ray shows congestive heart failure with volume overload, interstitial alveolar opacities were present. The patient is an 82-year-old man who presented to the hospital with increasing shortness of breath, edema of upper and lower extremities. He was previously hospitalized this month and was treated for acute on chronic kidney injury. Renal function slightly stabilized. The patient was discharged. Prior to that , he had renal biopsy in [place] which showed advanced chronic kidney disease. The patient was found to have hypothermia when he was evaluated in the emergency room. For hyperkalemia, received IV calcium gluconate, albuterol inhalers, and IV sodium bicarbonate to stabilize metabolic acidosis, although the patient subsequently had an emergent procedure with dialysis catheter placement and dialysis was done with 1 potassium dialysate to treat severe hyperkalemia. Review of Systems: Constitutional: The patient denies fever or chills. Eyes: Denies vision changes. Ears, Nose, Mouth, and Throat: Denies sore throat or earache. Respiratory: Has shortness of breath and cough. Denies hemoptysis. GI: Denies nausea, vomiting. : Denies dysuria, hematuria. Musculoskeletal: Denies muscle aches. Denies gout. All other systems reviewed and all are negative. Past Medical History: Hyperlipidemia, hypertension, diabetes mellitus, diabetic kidney disease, hypertensive heart and kidney disease, history of proteinuria associated with diabetic kidney disease, history of myasthenia gravis, peripheral neuropathy, cataract, finger surgery, prostate surgery. Family History: Father had heart disease. Mother; hypertension. Sister; hypertension, diabetes, cancer, kidney disease. Brother; heart disease, cancer. Social History: Denies tobacco, alcohol, or illicit drugs. Physical Examination: General: The patient is awake, alert. Eyes: Anicteric sclerae. EOMI. Ears, Nose, Mouth, and Throat: Oral mucosa moist. No pallor. Neck: Supple. No bruits. Lungs: Crackles bilaterally present. Heart: S1, S2. No pericardial friction rub. Abdomen: Obese, soft, nontender. No rebound. No guarding. Extremities: Edema, anasarca, some erythema in upper and lower extremities. Neurological: Moving extremities. Cranial nerves intact. Psychiatric: Alert, oriented x3. Normal affect. Laboratory Data: PT 13.4, INR 1.13, APTT 32.4. WBC 13.4, hemoglobin 9.6, hematocrit 29.8, platelet count 481. Sodium 130, potassium 6.4, BUN 86, creatinine 5.20, glucose 156, magnesium 1.9. AST 32, ALT 39. Impression And Plan: 1. Acute kidney injury on advanced chronic kidney disease, hypothermia, hyperkalemia, metabolic acidosis. 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 Renal biopsy showed advanced chronic kidney disease. Records will be obtained regarding kidney biopsy results. 2. Hyperkalemia. The patient was treated with IV bicarbonate, calcium gluconate in the emergency room and emergent dialysis was done after the patient had a catheter placed for dialysis access. 3. Hypotension. Continue dopamine. 4. Congestive heart failure, diastolic dysfunction with fluid overload. Continue ultrafiltration with dialysis as tolerated. The patient will have IV dopamine, pressors for blood pressure support as needed. 5. Diabetes mellitus. Continue insulin. 6. Hypotension. Workup pending to rule out bacteremia, sepsis. 7. Congestive heart failure. Cardiology consultation appreciated. 8. Anemia. Hemoglobin level is in low range. The patient will have blood transfusion as needed. 9. Acute on chronic kidney injury, advanced kidney disease secondary to diabetes and hypertension. Likely, the patient has at this point end-stage renal disease. He will need to continue dialysis 3 times per week. The patient agreed to have dialysis outpatient and social insurance analyst is consulted for dialysis arrangement for outpatient. Currently, the patient is hemodynamically stable, will require dopamine for blood pressure support during dialysis. He remains in ICU. NICANOR/DIEUDONNE Voice ID: [id number] Report ID: [id number] SHANNAN
[2017-12-22 06:05] LABS: Absolute Lymphocytes (CBC) 1.1 K/uL (0.7-4.9); Absolute Neutrophil 3.5 K/uL (1.8-8.0); Basophils % 1.2 % (0-1.3); Hematocrit 22.3 % (39.6-49.0); Lymphocytes % 17.6 % (15.3-44.8); MCH 30.4 pg (27.0-35.0); MCV 86.2 fL (80-100); MPV 7.4 fL (7.6-11.3); Monocytes % 16.2 % (3.3-12.3); RBC Red Blood Cell Count 2.59 M/uL (4.33-5.43)
[2017-12-22 06:20] LABS: Albumin 2.9 g/dL (3.4-5.0); Bilirubin Total 0.4 mg/dL (0.2-1.0); Potassium 4.3 mmol/L (3.5-5.1); Protein, Total 6.2 g/dL (6.4-8.2)
[2017-12-22] MEDS: PANTOPRAZOLE 40MG TABLET PO SCH (06:21)
[2017-12-22 06:51] LABS: Platelet Estimate ADEQ; Urine White Blood Cell Casts OK
[2017-12-22 06:52] LABS: Blood Morphology Comment NOT SEEN (NOT SEEN)
[2017-12-22] MEDS: INSULIN -REGULAR HUMAN 50 UNIT/0.5 ML ML SQ SCH ×4 (07:30→21:00)
--- NOTE | 2017-12-22 09:11 | RAD REPORT ---
EXAM DESCRIPTION: RAD - Chest Single View - 12/22/2017 6:43 am CLINICAL HISTORY: CHF COMPARISON: December 21, December 20 TECHNIQUE: AP portable chest image was obtained 0630 hours . FINDINGS: Lung markings are fractionally improved from the prior day study. No new or progressive pr ocess. Heart size and vasculature are stable. No pneumothorax or enlarging pleural effusion. IMPRESSION: Minimal improvement since prior day study.
--- NOTE | 2017-12-22 09:31 | P.PN ---
Subjective Date of Service: 12/22/17 Primary Care Provider: Dr. Roman; Nephrology-Dr. Sainz Chief Complaint: Shortness of breath, edema Subjective: Other (Patient feeling better. Patient still on dopamine drip.) Physical Examination - Vital Signs Temperature: 96.8 F Blood Pressure: 109/43 Pulse: 62 Respirations: 12 Pulse Ox (%): 100 - Physical Exam General: Alert, In no apparent distress, Cooperative HEENT: Atraumatic Neck: Supple Respiratory: Clear to auscultation bilaterally, Normal air movement Cardiovascular: Normal pulses, Regular rate/rhythm Gastrointestinal: Normal bowel sounds, Non-distended, No tenderness, No masses, No rebound, No guarding Musculoskeletal: No tenderness, No warmth Integumentary: Tenderness/swelling (Anasarca noted, slightly improved) Neurological: Normal speech, Normal strength at 5/5 x4 extr, Normal tone, Normal affect - Studies Medications List Reviewed: Yes Assessment & Plan - Problems (Diagnosis) (1) Renal failure (ARF), acute on chronic Onset Date: 12/22/17 Current Visit: Yes Status: Acute Plan: Acute on chronic renal failure with metabolic acidosis, hypothermia, hyperkalemia. Overall improved with dialysis. Patient received dialysis yesterday. Patient will receive dialysis again today. Will need to wean off dopamine drip. Still trying to obtain previous information from [place]. Apparently patient had renal biopsy done. Will discuss with nephrology about possible plan of care. Patient will likely need long-term acute care facility placement or skilled placement at discharge. Patient will also probably need chronic dialysis. I will turn the service over to Dr. Perdomo tomorrow. I will go over the plan of care with her. Qualifiers: Chronic kidney disease stage: stage 5, not on chronic dialysis (2) Hyperkalemia Onset Date: 12/22/17 Current Visit: Yes Status: Acute Plan: Resolved with dialysis. Will continue to monitor closely. (3) Bradycardia Onset Date: 12/22/17 Current Visit: Yes Status: Acute Plan: Bradycardia improved. Will continue with dopamine to maintain blood pressure. Cardiology recommends echocardiogram. (4) Asystole Onset Date: 12/22/17 Current Visit: Yes Status: Acute Plan: Patient was initially paced any emergency room. Will continue monitor closely. Advanced directives address in detail. Patient wishes to be DNR. This was addressed with nurses present. This apparently was addressed by the to the nurse earlier. (5) Hypothermia Onset Date: 12/22/17 Current Visit: Yes Status: Acute Plan: Will continue with bear rongger. This has improved. Qualifiers: Encounter type: initial encounter Qualified Code(s): T68.XXXA - Hypothermia , initial encounter (6) Metabolic acidosis Onset Date: 12/22/17 Current Visit: Yes Status: Acute Plan: Secondary to acute renal failure. Improved with dialysis. Renal function still compromise. Patient expected to get dialysis again today. (7) Anasarca Onset Date: 12/15/17 Current Visit: No Status: Acute Plan: Patient will continue with dialysis. (8) Diabetes Onset Date: 09/10/17 Current Visit: No Status: Chronic Plan: Will continue Accu-Cheks. Provide sliding scale. Qualifiers: Diabetes mellitus type: type 2 Diabetes mellitus mcc insulin use: without local intermodal truck driver use Diabetes mellitus complication status: with unspecified complications Qualified Code(s): E11.8 - Type 2 diabetes mellitus with unspecified complications (9) HTN (hypertension) Onset Date: 09/10/17 Current Visit: No Status: Chronic Plan: Will continue to hold blood pressure medication at this time. Blood pressure stable at this time. Patient on dopamine drip Qualifiers: Hypertension type: essential hypertension Qualified Code(s): I10 - Essential (primary) hypertension (10) Hypotension Onset Date: 12/22/17 Current Visit: Yes Status: Acute Plan: Patient with hypotension. Patient on dopamine drip. This will need to be weaned off Qualifiers: Hypotension type: other hypotension type Qualified Code(s): I95.89 - Other hypotension (11) Anemia Onset Date: 12/22/17 Current Visit: Yes Status: Chronic Plan: Likely of chronic disease. Will continue to monitor hemoglobin. Hemoglobin stable this time. May need transfusion if hemoglobin less than 7.0. Qualifiers: Anemia type: due to chronic kidney disease Chronic kidney disease stage: stage 5, not on chronic dialysis Qualified Code(s): N18.5 - Chronic kidney disease, stage 5; D63.1 - Anemia in chronic kidney disease Discharge Plan: Other (Will need to consider long-term acute care facility verses skilled placement at discharge) Time Spent Managing Pts Care (In Minutes): 55
[2017-12-22] MEDS ORDERED: Caclcium Chloride 10% INJ SYR IV ONE (12:00)
[2017-12-22] MEDS ORDERED: D50W 25 GM/50 ML SYRINGE IV ONE (12:01)
--- NOTE | 2017-12-23 03:32 | PN ---
Date of Progress Note: 12/22/2017 Chief Complaint: Acute kidney injury, oliguric, on advanced chronic kidney disease. 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 The patient has underlying diabetes mellitus, hypertensive heart and kidney disease. He presented to the hospital because of severe weakness. He was found to have metabolic acidosis related to acute kidney injury and lactic acid was evaluated. The patient received an urgent dialysis with ultrafiltration, control of anasarca, and to correct metabolic acidosis, as well as to control hyperkalemia. Review of Systems: The patient is feeling better today. He remains fluid overloaded and has anasarca. Blood pressure is on side and the patient was resumed on dopamine for blood pressure support. Denies chest pain, headache, or vision changes. Physical Examination: Lungs: Few crackles at bases. Heart: S1, S2. Abdomen: Soft, benign. Extremities: Severe edema in upper and lower extremities. Laboratory Data: Hemoglobin 7.9, WBC 6.3, platelet count is 300,000. Sodium 133, potassium 4.3, chloride 96, CO2 of 25, BUN 56, creatinine 3.80, calcium 7.1 , magnesium 2.0. Impression And Plan: 1. Acute kidney injury on advanced chronic kidney disease. The patient has a temporary dialysis catheter. Plan is to replace cathether with tunneled dialysis catheter when the patient is stable. Currently, he has hypotension and has fluid overload, congestive heart failure with diastolic dysfunction. Continue dialysis with ultrafiltration. IV albumin will be used for blood pressure control to facilitate ultrafiltration and fluid removal. 2. Hypotension. Plan is to wean him off dopamine. Blood pressure is currently on low side. Continue to monitor in ICU. 3. Anemia. The patient may require blood transfusion. Continue NAVA for anemia due to chronic kidney disease. 4. History of proteinuria. The patient has advanced chronic kidney disease. The patient may be a candidate for TREVIN inhibitor when blood pressure is controlled. Monitor albumin level, adjust p.o. protein replacement. I spent total 36 min including 26 min to coordinate care plan. NICANOR/DIEUDONNE Voice ID: [id number] Report ID: [id number] SHANNAN
[2017-12-23 04:34] VITALS: BMI 33.7
[2017-12-23 05:37] LABS: Absolute Lymphocytes (CBC) 1.2 K/uL (0.7-4.9); Absolute Monocytes 1.1 K/uL (0.1-1.3); Absolute Neutrophil 4.9 K/uL (1.8-8.0); Basophils % 1.3 % (0-1.3); Eosinophils % 7.7 % (0-4.4); Hematocrit 25.6 % (39.6-49.0); Lymphocytes % 15.7 % (15.3-44.8); MCH 30.2 pg (27.0-35.0); MCV 86.2 fL (80-100); MPV 7.6 fL (7.6-11.3); Monocytes % 13.6 % (3.3-12.3); RBC Red Blood Cell Count 2.97 M/uL (4.33-5.43)
[2017-12-23 06:03] LABS: Albumin 3.4 g/dL (3.4-5.0); Bilirubin Total 0.5 mg/dL (0.2-1.0); Magnesium 2.1 mg/dL (1.8-2.4); Potassium 3.7 mmol/L (3.5-5.1); Protein, Total 6.9 g/dL (6.4-8.2)
[2017-12-23] MEDS: PANTOPRAZOLE 40MG TABLET PO SCH (06:08)
[2017-12-23] MEDS: INSULIN -REGULAR HUMAN 50 UNIT/0.5 ML ML SQ SCH ×4 (07:30→21:00)
[2017-12-23] MEDS: ACETAMINOPHEN 500 MG TAB PO PRN (09:22)
--- NOTE | 2017-12-23 13:16 | P.PN ---
Subjective Date of Service: 12/23/17 Primary Care Provider: Dr. Roman; Nephrology-Dr. Sainz Chief Complaint: Shortness of breath, edema Patient seen and examined at bedside with RN. Chart reviewed. Case discussed with cardiology, nephrology, general surgery. Patient has no complaints to offer at this time. Has been doing well overall. Is scheduled for dialysis tomorrow morning. States that his shortness of breath has gotten better. No other complaints to offer. Review of Systems General: As per HPI Physical Examination - Vital Signs Temperature: 97.4 F Blood Pressure: 116/44 Pulse: 71 Respirations: 13 Pulse Ox (%): 98 - Physical Exam General: Alert, In no apparent distress, Oriented x3 HEENT: Atraumatic, PERRLA, EOMI Neck: Supple, JVD not distended Respiratory: Clear to auscultation bilaterally, Normal air movement Cardiovascular: Regular rate/rhythm, Normal S1 S2 Gastrointestinal: Normal bowel sounds, No tenderness Musculoskeletal: No tenderness, Other (Dialysis catheter in place on the right femoral area) Integumentary: No rashes Neurological: Normal speech, Normal tone, Normal affect Lymphatics: No axilla or inguinal lymphadenopathy - Studies Medications List Reviewed: Yes Assessment & Plan - Problems (Diagnosis) (1) Renal failure (ARF), acute on chronic Onset Date: 12/22/17 Current Visit: Yes Status: Acute Plan: Patient with acute kidney injury. Most likely secondary to possible nephrotic syndrome, -awaiting paperwork from Ros[facility] Lema -nephrology consulted here. Appreciated recommendations. -patient with temporary dialysis catheter getting dialyzed here in the hospital. Next dialysis session on Friday. The N creatinine improving. -continue to monitor at this time. -hyperkalemia and metabolic acidosis related to the acute kidney injury has resolved now. Qualifiers: Chronic kidney disease stage: stage 5, not on chronic dialysis (2) Bradycardia Onset Date: 12/22/17 Current Visit: Yes Status: Acute Plan: Resolved now. -status post pacing in the ER. -dopamine drip was started. Stopped yesterday at 4:00 p.m.. Currently heart rate between 80s to 90s -continuous cardiac monitoring. -cardiology consulted. Appreciated Reccs (3) Anasarca Onset Date: 12/15/17 Current Visit: No Status: Acute Plan: Most likely secondary to acute renal failure. (4) Diabetes Onset Date: 09/10/17 Current Visit: No Status: Chronic Qualifiers: Diabetes mellitus type: type 2 Diabetes mellitus terminal make up operator insulin use: without long-term use Diabetes mellitus complication status: with unspecified complications Qualified Code(s): E11.8 - Type 2 diabetes mellitus with unspecified complications (5) HTN (hypertension) Onset Date: 09/10/17 Current Visit: No Status: Chronic Qualifiers: Hypertension type: essential hypertension Qualified Code(s): I10 - Essential (primary) hypertension Discharge Plan: Other Plan to discharge in: 72 Hours - Code Status/Comfort Care Code Status Assessed: Yes Critical Care: Yes
--- NOTE | 2017-12-23 15:02 | ECHO ---
HEIGHT: 5 ft 8 in WEIGHT: 222 lb 4.8 oz DATE OF STUDY: 12/23/[address]: Loyd Guy MD 2-DIMENSIONAL: YES M.MODE: YES DOPPLER: YES COLOR FLOW: YES TDS: NO PORTABLE: YES DEFINITY: NO BUBBLE STUDY: NO DIAGNOSIS: CHEST PAIN CARDIAC HISTORY: CATHERIZATION: NO SURGERY: NO PROSTHETIC VALVE: NO PACEMAKER: NO MEASUREMENTS (cm) DIASTOLIC (NORMALS) SYSTOLIC (NORMALS) IVSd 1.2 (0.6-1.2) LA Diam 3.6 (1.9-4.0) LVEF 67% LVIDd 4.4 (3.5-5.7) LVIDs 2.3 (2.0-3.5) %FS 47% LVPWd 1.3 (0.6-1.2) Ao Diam 3.1 (2.0-3.7) 2 DIMENSIONAL ASSESSMENT: RIGHT ATRIUM: NORMAL LEFT ATRIUM: NORMAL RIGHT VENTRICLE: NORMAL LEFT VENTRICLE: NORMAL TRICUSPID VALVE: NORMAL MITRAL VALVE: NORMAL PULMONIC VALVE: NORMAL AORTIC VALVE: NORMAL PERICARDIAL EFFUSION: NONE AORTIC ROOT: NORMAL LEFT VENTRICULAR WALL MOTION: NORMAL DOPPLER/COLOR FLOW: MILD TRICUSPID REGURGITATION. COMMENTS: MILD TRICUSPID REGURGITATION. NORMAL LEFT VENTRICULAR SIZE AND FUNCTION. NO WALL MOTION ABNORMALITY. NO EFFUSION. TECHNOLOGIST: Dave GOMEZ
--- NOTE | 2017-12-23 18:19 | PN ---
Date of Progress Note: 12/23/2017 Subjective: The patient was admitted with anasarca. The patient was started on dialysis, being dial yzed every day up to yesterday, tolerated the dialysis very well. Still has anasarca. Physical Examination: Vital Signs: When I saw the patient, blood pressure 116/44, pulse of 71. The patient had urine outp ut of 475 yesterday, managed to remove 2200 on dialysis. Chest: Decreased air entry bilateral base. Heart: S1, S2. Regular. Abdomen: Soft, nontender. Extremities: +2 edema. Laboratory Data: H and H 02/17.6. Sodium 136, potassium 3.7, bicarb 26, BUN is 22, creatinine 2.2, t his is post dialysis, calcium 8.5. Current Medications: The patient on its include: 1.Breathing treatment. 2.Albumin. 3.Tylenol. 4.Zofran. 5.Pantoprazole. 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 Proteinuric, nephrotic all the workup including the biopsy did no t show any autoimmune disease. I had long discussion with the patient regarding the need for permane nt access and arrangement for dialysis. The patient still did not make his mind and I discussed it w ith his family before he makes the final decision. We will follow up. We will continue ultrafiltrat e with the dialysis. We will arrange for dialysis Friday, Friday, Friday. 2.Hypertension, currently blood pressure on the lower side. We will utilize blood pressure for more ultrafiltration. 3.Anasarca secondary to cardiorenal and hypothyroidism. I am going to start the patient on low dose of levothyroxine and we will follow up with primary. NILTON/DIEUDONNE Voice ID: [id number] Report ID: [id number]
[2017-12-23 18:28] LABS: HBsAG Nonreactive (Nonreactive)
[2017-12-24] MEDS ORDERED: LEVOTHYROXINE SOD 0.025 MG TAB PO SCH (06:30)
[2017-12-24 06:45] LABS: Absolute Lymphocytes (CBC) 1.4 K/uL (0.7-4.9); Absolute Neutrophil 6.5 K/uL (1.8-8.0); Basophils % 1.3 % (0-1.3); Hematocrit 26.5 % (39.6-49.0); Lymphocytes % 14.6 % (15.3-44.8); MCH 29.6 pg (27.0-35.0); MCV 86.4 fL (80-100); Monocytes % 10.1 % (3.3-12.3); RBC Red Blood Cell Count 3.06 M/uL (4.33-5.43)
[2017-12-24] MEDS: LEVOTHYROXINE SOD 0.025 MG TAB PO SCH (06:59)
[2017-12-24 07:17] LABS: Albumin 3.1 g/dL (3.4-5.0); Bilirubin Total 0.5 mg/dL (0.2-1.0); Magnesium 1.8 mg/dL (1.8-2.4); Potassium 3.4 mmol/L (3.5-5.1); Protein, Total 6.5 g/dL (6.4-8.2)
[2017-12-24] MEDS: PANTOPRAZOLE 40MG TABLET PO SCH (07:30)
[2017-12-24] MEDS: INSULIN -REGULAR HUMAN 50 UNIT/0.5 ML ML SQ SCH ×4 (07:30→21:00)
[2017-12-24] MEDS ORDERED: METOPROLOL TARTRATE 5 MG/5 ML INJ IV STA (11:06)
--- NOTE | 2017-12-24 11:24 | PN ---
Date of Progress Note: 12/23/2017 Mr. Greenberg had been seen by Dr. Jiang for acute renal failure, elevated troponin, echo ordered that w as supposed to be done on 12/22/2017, but that did not happen, we reordered the echo for 12/23/2017. The echo did not show any wall motion abnormalities or effusions, normal ejection fraction. No voss ge in treatment plan from a cardiac standpoint. We will be available for questions if the need arise . The patient remains in sinus rhythm. SKYLER/DIEUDONNE Voice ID: [id number] Report ID: [id number]
[2017-12-24] MEDS ORDERED: NA CHLORIDE 0.9% 500 ML ONE (11:44)
[2017-12-24] MEDS ORDERED: NS 0.9% VIAL 10 ML ONE ×2 (12:10→13:01)
[2017-12-24] MEDS ORDERED: NA CHLORIDE 0.9% 100 ML IV ONE (12:11)
--- NOTE | 2017-12-24 12:21 | PN ---
Date of Progress Note: 12/24/2017 Subjective: The patient in the dialysis today, developed sinus tachycardia to 160. Objective: Vital Signs: When I saw the patient, blood pressure 147/78, pulse of 98, afebrile. Chest: Clear crackles on the up zone. Heart: S1, S2. Systolic murmur. Abdomen: Soft, nontender. Extremities: +2 edema. Laboratory Data: H and H 9.1/26.5. Sodium 136, potassium 3.4, bicarb 26, BUN 27, creatinine 2.6, ca lcium 7.8. Current Medications: The patient is on include; 1.Tylenol. 2.Zofran. 3.Pantoprazole. 4.Levothyroxine. Assessment And Plan: 1.Acute kidney injury on advanced chronic kidney disease secondary to diabetes nephropathy confirmed with biopsy, oliguric with over volume. I am going to continue the patient on dialysis. The patien t agreed for PermCath insertion. We will follow up. 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 I had long discussion with the patient in t he presence of the son regarding the results of the biopsy. We will continue current medication. We will follow up. We will consider TREVIN inhibitor after stabilizing the blood pressure. 3.Anasarca secondary to renal failure, hypothyroidism. We will challenge the patient. 4.Diabetes, as by primary. NILTON/DIEUDONNE Voice ID: [id number] Report ID: [id number]
[2017-12-24] MEDS ORDERED: CEFAZOLIN/SWI 1gm 1 GM/10 ML SYR ONE (12:24)
[2017-12-24] MEDS ORDERED: PROPOFOL 200 MG/20 ML VIAL IV ONE (12:40)
[2017-12-24] MEDS ORDERED: LIDOCAINE 1% MPF 5 ML VIAL ONE (12:41)
[2017-12-24] MEDS ORDERED: Phenylephrine HCl 10 MG/ML 1 ML VIAL ONE (13:00)
[2017-12-24] MEDS ORDERED: EPHEDRINE SULF 50 MG/10 ML SYR ONE (13:06)
[2017-12-24] MEDS: LIDOCAINE 1% MPF 5 ML VIAL ONE ×2 (13:15→13:20)
[2017-12-24] MEDS: HEPARIN 5000 UNIT/ML 1 ML VIAL ONE ×2 (13:15→13:20)
--- NOTE | 2017-12-24 13:21 | P.PN ---
Subjective Date of Service: 12/24/17 Primary Care Provider: Dr. Roman; Nephrology-Dr. Sainz Chief Complaint: Shortness of breath, edema Patient seen and examined at bedside with RN. Chart reviewed. Case discussed with cardiology, nephrology, general surgery. Patient has no complaints to offer at this time. Has been doing well overall. Is scheduled for HD Cath today Review of Systems General: As per HPI Physical Examination - Vital Signs Temperature: 97.9 F Blood Pressure: 147/78 Pulse: 86 Respirations: 19 Pulse Ox (%): 100 - Physical Exam General: Alert, Oriented x3 HEENT: Atraumatic Neck: Supple, JVD not distended Respiratory: Normal air movement, Crackles/rales Cardiovascular: Regular rate/rhythm, Normal S1 S2 Gastrointestinal: Normal bowel sounds, Soft and benign, Non-distended, No tenderness Musculoskeletal: No tenderness Integumentary: No rashes Neurological: Normal speech, Normal tone, Normal affect Lymphatics: No axilla or inguinal lymphadenopathy - Studies Medications List Reviewed: Yes Assessment & Plan - Problems (Diagnosis) (1) Renal failure (ARF), acute on chronic Onset Date: 12/22/17 Current Visit: Yes Status: Acute Plan: Patient with acute kidney injury. Most likely secondary to possible nephrotic syndrome -awaiting paperwork from Ros[facility] Lema -nephrology consulted here. Appreciated recommendations. -scheduled for Perm HD cath today -continue to monitor at this time. -hyperkalemia and metabolic acidosis related to the acute kidney injury has resolved now. Qualifiers: Chronic kidney disease stage: stage 5, not on chronic dialysis (2) Bradycardia Onset Date: 12/22/17 Current Visit: Yes Status: Acute Plan: Resolved now. -status post pacing in the ER. -S/p dopamine drip. Currently heart rate between 80s to 90s -continuous cardiac monitoring. -cardiology consulted. Appreciated Reccs (3) Anasarca Onset Date: 12/15/17 Current Visit: No Status: Acute Plan: Most likely secondary to acute renal failure. (4) Diabetes Onset Date: 09/10/17 Current Visit: No Status: Chronic Qualifiers: Diabetes mellitus type: type 2 Diabetes mellitus intermediate insulin use: without intermediate use Diabetes mellitus complication status: with unspecified complications Qualified Code(s): E11.8 - Type 2 diabetes mellitus with unspecified complications (5) HTN (hypertension) Onset Date: 09/10/17 Current Visit: No Status: Chronic Qualifiers: Hypertension type: essential hypertension Qualified Code(s): I10 - Essential (primary) hypertension Discharge Plan: Home Plan to discharge in: 48 Hours - Code Status/Comfort Care Code Status Assessed: Yes Critical Care: Yes
--- NOTE | 2017-12-24 13:38 | P.BOP ---
Preoperative diagnosis: ESRD Postoperative diagnosis: same Primary procedure: 1. Placement of Hemosplit hemodialysis catheter Secondary procedure: 2. interpretation of fluoroscopy Other procedure(s): 3. RIght neck ultrasound Estimated blood loss: <20cc Specimen: none Findings: as above Anesthesia: General Complications: None Transferred to: Recovery Room Condition: Good
--- NOTE | 2017-12-24 13:44 | RAD REPORT ---
EXAM DESCRIPTION: RAD - Fluoroscopy <1 Hour - 12/24/2017 1:39 pm CLINICAL HISTORY: Device placement central venous catheter placement FINDINGS: A central venous catheter was placed into the superior vena cava. Thirteen fluoroscopic sp ot images are submitted. The examination was performed by Dr. Faith
[2017-12-24] MEDS ORDERED: MORPHINE 4 MG/ML SYR ONE (14:05)
--- NOTE | 2017-12-24 14:15 | OP ---
Date of Procedure: 12/24/2017 Surgeon: Jarred Faith MD Learning Design Specialist: None. Preoperative Diagnosis: End-stage renal disease. Postoperative Diagnosis: End-stage renal disease. Procedures: 1.Placement of a HemoSplit hemodialysis catheter in the right internal jugular vein. 2.Interpretation of fluoroscopy. 3.Right neck ultrasound. Implant: HemoSplit, 24 in length. Indications: This is the case of an 82-year-old patient needing hemodialysis. He has an emergent he modialysis placed in the right femoral recently. He is receiving treatment, but they want more perma nent access, so they asked for the HemoSplit tunnel cuff hemodialysis catheter. The benefits, altern atives, and risks were explained to him and family which include, but are not limited to infection, b leeding, damage to adjacent structures, anesthesia complication, pneumothorax, hemothorax, cardiac ta mponade, DVTs, DE, and even . They also understands this may not relieve any symptoms. He migh t need more than one surgical intervention. He understood. Signed a consent. Description Of Procedure: The patient was brought to the OR, placed supine in position. Anesthesia was done without complication. Right neck and chest were prepped and draped in a sterile fashion. W e did not use the left neck as patient has an open wound in that area. He came to this hospital like that. There is about 12 by at least 5 cm ulcer on the supraclavicular and left jugular region. So, we covered that area prior to prepping the area in the usual sterile fashion on the right side. We placed the patient in Trendelenburg position. Right neck ultrasound which shows a compressible and p atent right internal jugular vein. We placed an 18-gauge needle Right in the internal jugular vein u nder direct visualization. I put a guidewire through and got into the superior vena cava using fluor oscopy. The needle was removed. A small incision was made in the right upper chest and we tunneled THE catheter through that incision into the right neck incision. We placed dilators through the guid ewire under direct visualization of fluoroscopy until we ended up with the introducer, removed the gu idewire, and the inner cannula, vein introducer, and then put the catheter through the introducer, pe eled off the introducer. This was done under fluoroscopy guidance. The catheter looked in well posi tion, excellent backflow and inflow. The catheter was secured in place with 3-0 nylon and subcutaneo us tissue closed with 3-0 chromic. The patient tolerated the procedure well. The patient was francine t back to normal position. Sent to recovery in stable condition. An x-ray was ordered in recovery r oom stat. SONAL/DIEUDONNE Voice ID: [id number] Report ID: [id number]
--- NOTE | 2017-12-24 14:34 | EKG ---
Test Date: 2017-12-24 Test Time: 11:01:45 Gyn: MARCK MEASUREMENT RESULTS: Intervals: Rate: 139 [place]: QRSD: 100 QT: 352 QTc: 535 [place]: P: [place]: QRS: 23 T: 52 INTERPRETIVE STATEMENTS: Supraventricular tachycardia, possible atrial flutter with 2 to [address] and T wave abnormality Abnormal ECG Compared to ECG 12/23/2017 07:37:15 ST (T wave) deviation now present Sinus rhythm no longer present Sinus arrhythmia no longer present Electronically Signed On 12-24-17 14:34:05 CDT by Nickolas Jiang
--- NOTE | 2017-12-24 14:38 | EKG ---
Test Date: 2017-12-23 Test Time: 07:37:15 Marketing Administrative Assistant: DOMINIQUE MEASUREMENT RESULTS: Intervals: Rate: 64 MA: 160 QRSD: 102 QT: 418 QTc: 431 [place]: P: 84 MA: 160 QRS: 23 T: 65 INTERPRETIVE STATEMENTS: Normal sinus rhythm with sinus arrhythmia Normal ECG Compared to ECG 12/20/2017 13:28:59 No significant changes Electronically Signed On 12-24-17 14:36:17 CDT by Nickolas Jiang
--- NOTE | 2017-12-24 14:56 | RAD REPORT ---
EXAM DESCRIPTION: RAD - Chest Single View - 12/24/2017 2:29 pm CLINICAL HISTORY: Device placement central venous line placement COMPARISON: none FINDINGS: A central venous line has been inserted with its tip in the proximal superior vena cava. A pneumothorax is not seen The lungs appear clear of acute infiltrate. The heart is normal size. IMPRESSION: Central venous line with its limbs in the superior vena cava
[2017-12-25] MEDS: ACETAMINOPHEN 500 MG TAB PO PRN (03:37)
[2017-12-25 05:28] LABS: Absolute Lymphocytes (CBC) 0.8 K/uL (0.7-4.9); Absolute Neutrophil 8.1 K/uL (1.8-8.0); Basophils % 0.7 % (0-1.3); Hematocrit 26.1 % (39.6-49.0); Lymphocytes % 7.8 % (15.3-44.8); MCH 29.8 pg (27.0-35.0); MCV 87.1 fL (80-100); Monocytes % 9.8 % (3.3-12.3); RBC Red Blood Cell Count 2.99 M/uL (4.33-5.43)
[2017-12-25 05:48] LABS: Albumin 3.2 g/dL (3.4-5.0); Bilirubin Total 0.4 mg/dL (0.2-1.0); Magnesium 1.7 mg/dL (1.8-2.4); Potassium 3.3 mmol/L (3.5-5.1); Protein, Total 6.6 g/dL (6.4-8.2)
[2017-12-25] MEDS: LEVOTHYROXINE SOD 0.025 MG TAB PO SCH (06:12)
[2017-12-25] MEDS: INSULIN -REGULAR HUMAN 50 UNIT/0.5 ML ML SQ SCH ×4 (07:30→21:00)
[2017-12-25] MEDS: PANTOPRAZOLE 40MG TABLET PO SCH (08:53)
[2017-12-25] MEDS ORDERED: MAGNESIUM SULFATE 1 gm IVPB 1 GM/100 ML BAG IV ONE (09:00)
--- NOTE | 2017-12-25 14:34 | P.PN ---
Subjective Date of Service: 12/25/17 Primary Care Provider: Dr. Roman; Nephrology-Dr. Sainz Chief Complaint: Shortness of breath, edema Patient seen and examined at bedside with RN. Chart reviewed. Case discussed with cardiology, nephrology, general surgery. Patient has no complaints to offer at this time. Has been doing well overall. S/p HD cath Placement. Scheduled for dialysis today Review of Systems General: As per HPI Physical Examination - Vital Signs Temperature: 96.9 F Blood Pressure: 130/60 Pulse: 76 Respirations: 17 Pulse Ox (%): 95 - Physical Exam General: Alert, In no apparent distress HEENT: Atraumatic Neck: Supple, Other (HD cath on right Chest inplace. ) Respiratory: Normal air movement, Rhonchi/gurgles Cardiovascular: Regular rate/rhythm, Normal S1 S2 Gastrointestinal: Normal bowel sounds, Soft and benign, Non-distended, No tenderness Integumentary: No rashes Neurological: Normal speech, Normal tone, Normal affect Lymphatics: No axilla or inguinal lymphadenopathy - Studies Medications List Reviewed: Yes Assessment & Plan - Problems (Diagnosis) (1) Renal failure (ARF), acute on chronic Onset Date: 12/22/17 Current Visit: Yes Status: Acute Plan: Patient with acute kidney injury. Most likely secondary to possible nephrotic syndrome -nephrology consulted here. Appreciated recommendations. -S.P HD perm cath placement. No complication noted. -Will get HD today and if Cath working appropriately. Will remove Femoral Cath. -Setup for [facility] at [facility] -hyperkalemia and metabolic acidosis related to the acute kidney injury has resolved now. Qualifiers: Chronic kidney disease stage: stage 5, not on chronic dialysis (2) Bradycardia Onset Date: 12/22/17 Current Visit: Yes Status: Acute Plan: Resolved now. -status post pacing in the ER. -S/p dopamine drip. Currently heart rate between 80s to 90s -continuous cardiac monitoring. -cardiology consulted. Appreciated Reccs (3) Anasarca Onset Date: 12/15/17 Current Visit: No Status: Acute Plan: Most likely secondary to acute renal failure. (4) Diabetes Onset Date: 09/10/17 Current Visit: No Status: Chronic Qualifiers: Diabetes mellitus type: type 2 Diabetes mellitus long term care phlebotomist insulin use: without long term care phlebotomist use Diabetes mellitus complication status: with unspecified complications Qualified Code(s): E11.8 - Type 2 diabetes mellitus with unspecified complications (5) HTN (hypertension) Onset Date: 09/10/17 Current Visit: No Status: Chronic Qualifiers: Hypertension type: essential hypertension Qualified Code(s): I10 - Essential (primary) hypertension Discharge Plan: Home Plan to discharge in: 48 Hours - Code Status/Comfort Care Code Status Assessed: No Critical Care: No
--- NOTE | 2017-12-26 01:21 | PN ---
Date of Progress Note: 12/25/2017 Chief Complaint: End-stage renal disease. Subjective: The patient was initiated on dialysis. He recently had renal biopsy done it showed severe interstitial fibrosis and glomerulosclerosis, advanced chronic kidney disease. The patient is tolerating dialysis. The patient has tunneled dialysis catheter placed during this admission. Review of Systems: Denies fever or chills. Physical Examination: Lungs: Clear to auscultation bilaterally. Heart: S1, S2. Abdomen: Soft, benign. Extremities: Slight edema in both legs. Vital Signs: Blood pressure 142/67, heart rate 105, respiratory rate 18, temperature 98.3. Laboratory Data: Hemoglobin 8.9, WBC 10.7, platelet count is 308,000. Sodium 134, potassium 3.3, chloride 97, CO2 27, glucose 154, calcium 8.2, magnesium 1.7. Impression And Plan: 1. End-stage renal disease. Continue dialysis 3 times per week. 2. Anemia in chronic kidney disease. Continue NAVA. 3. Hypokalemia. Potassium replacement as needed. 4. Hypomagnesemia. Magnesium replacement ordered. 5. Hypertension. Blood pressure in acceptable control. 6. Fluid overload. Continue low-sodium diet. Adjust ultrafiltration with dialysis. NICANOR/DIEUDONNE Voice ID: [id number] Report ID: [id number] SHANNAN
[2017-12-26] MEDS: LEVOTHYROXINE SOD 0.025 MG TAB PO SCH (05:38)
[2017-12-26] MEDS: INSULIN -REGULAR HUMAN 50 UNIT/0.5 ML ML SQ SCH ×4 (07:30→21:13)
[2017-12-26] MEDS: PANTOPRAZOLE 40MG TABLET PO SCH (09:05)
[2017-12-26] MEDS ORDERED: ETODOLAC 300 MG PO PRN (13:12)
--- NOTE | 2017-12-26 16:45 | P.DS ---
Admission Date: 12/20/17 Discharge Date: 12/26/17 Primary Care Provider: Dr. Roman; Nephrology-Dr. Sainz Disposition: ROUTINE DISCHARGE Discharge Condition: GOOD Reason for Admission: Shortness of breath, edema - Problems (1) Renal failure (ARF), acute on chronic Onset Date: 12/22/17 Current Visit: Yes Status: Acute Qualifiers: Chronic kidney disease stage: stage 5, not on chronic dialysis (2) Bradycardia Onset Date: 12/22/17 Current Visit: Yes Status: Acute (3) Anasarca Onset Date: 12/15/17 Current Visit: No Status: Acute (4) Diabetes Onset Date: 09/10/17 Current Visit: No Status: Chronic Qualifiers: Diabetes mellitus type: type 2 Diabetes mellitus shelter insulin use: without termite control technician use Diabetes mellitus complication status: with unspecified complications Qualified Code(s): E11.8 - Type 2 diabetes mellitus with unspecified complications (5) HTN (hypertension) Onset Date: 09/10/17 Current Visit: No Status: Chronic Qualifiers: Hypertension type: essential hypertension Qualified Code(s): I10 - Essential (primary) hypertension Brief History of Present Illness: 82-year-old male presented emergency room with increasing shortness of breath, edema to the lower extremities and body. Patient was recently hospitalized from December 10 to for acute renal failure with lactic acidosis, nephrotic syndrome, hyperkalemia. It appears it was related to medication-metformin. Patient reports being discharge and having a renal biopsy in [place] after that time. Since being discharge he has been having increasing shortness of breath, edema to the upper and lower extremities. He also reports increasing fatigue. The called EMS today due to increase fatigue. In the ER patient was hypothermic. Patient found to be with hyperkalemia. Patient was given bicarb, insulin, and calcium. Patient was also bradycardic in the emergency room. At times his heart rate would drop down below 30. The patient had asystole in the emergency room. He was paced in the emergency room. Patient was placed on a dopamine drip due to hypotension. Since that time patient remained stable. Blood pressure 107/43 heart rate 60s. White count 13.4, hemoglobin 9.6. Sodium 130, potassium 6.4. Bicarb of 8 BUN of 86, creatinine 5.2 with a GFR of 11. On his gases pH is 7.28 with the PCO2 of 20 and a bicarb of 9.2. Troponin less 0.02. BNP at 3700. Patient remains stable in the emergency room. Nurses did address advance directives with the patient and . Patient is DNR. When I came to about weight the patient, patient was alert. Patient remained stable with bear hugger to help with his hypothermia. Patient on dopamine drip. Patient did not appear in any respiratory distress. Hospital Course: Overall during the hospital stay patient remained stable. Patient was initially admitted to the hospital with acute renal failure causing uremic syndrome. Patient was admitted to the hospital for temporary dialysis. Nephrology was consulted. Patient was started on temporary dialysis due to hyperkalemia and anasarca. Patient had dialysis done here in the hospital for about 3 days. There was no improvement in his BUN and creatinine. Patient does have history of chronic kidney disease not on hemodialysis stage 5. Patient was educated extensively on the need for patient to be started on hemodialysis patient agreed at this time to be started on hemodialysis. Permanent catheter was placed by general surgery. Patient had hemodialysis here in the hospital and did well overall. Patient was scheduled for outpatient hemodialysis at [facility] on Friday and will be followed up with Nephrology over there as well. While here in the hospital patient also was bradycardic upon admission to the ER. Patient was started on dopamine drip. Patient was successfully weaned off the drip and heart rate was in the normal ranges. Cardiology was consulted here in the hospital who was tested in the plan of care for bradycardia. Patient was then discharged home under stable condition was asked to follow up with nephrology and cardiology in about 1-2 weeks post discharge. Vital Signs/Physical Exam: Temp Pulse Resp BP Pulse Ox 97.0 F 91 H 18 103/56 L 96 12/26/17 16:00 12/26/17 16:00 12/26/17 16:00 12/26/17 16:12/26/17 16:00 General: Alert, In no apparent distress HEENT: Atraumatic, PERRLA, EOMI Neck: Supple, JVD not distended Respiratory: Clear to auscultation bilaterally, Normal air movement Cardiovascular: Regular rate/rhythm, Normal S1 S2 Gastrointestinal: Normal bowel sounds, No tenderness Musculoskeletal: No tenderness Integumentary: No rashes Neurological: Normal speech, Normal tone, Normal affect Lymphatics: No axilla or inguinal lymphadenopathy Laboratory Data at Discharge: WBC 10.7 K/uL (4.3-10.9) 12/25/17 05:12 Hgb 8.9 g/dL (13.6-17.9) L 12/25/17 05:12 Hct 26.1 % (39.6-49.0) L 12/25/17 05:12 Plt Count 308 K/uL (152-406) 12/25/17 05:12 PT 13.4 SECONDS (9.5-12.5) H 12/20/17 14:10 INR 1.13 12/20/17 14:10 APTT 32.4 SECONDS (24.3-36.9) 12/20/17 14:10 Sodium 138 mmol/L (136-145) 12/26/17 05:48 Potassium 3.0 mmol/L (3.5-5.1) L 12/26/17 05:48 BUN 16 mg/dL (7-18) 12/26/17 05:48 Creatinine 1.80 mg/dL (0.55-1.3) H D 12/26/17 05:48 Glucose 141 mg/dL (74-106) H 12/26/17 05:48 Uric Acid 10.9 mg/dL (3.5-7.2) H 12/20/17 16:50 Phosphorus 10.6 mg/dL (2.5-4.9) H* 12/20/17 20:28 Magnesium 2.0 mg/dL (1.8-2.4) 12/26/17 05:48 Total Bilirubin 0.4 mg/dL (0.2-1.0) 12/25/17 05:12 AST 15 U/L (15-37) 12/25/17 05:12 ALT 18 U/L (12-78) 12/25/17 05:12 Alkaline Phosphatase 130 U/L (45-117) H 12/25/17 05:12 Troponin I 0.02 ng/mL (0.0-0.045) 12/21/17 04:45 Home Medications: Metoprolol Tartrate [Lopressor*] 12.5 mg PO BID 05/02/15 Multivitamin [Multivitamins] 1 each PO DAILY 07/05/15 Furosemide [Lasix] 40 mg PO Q6HR 07/04/16 Gabapentin [Gralise] 300 mg PO BEDTIME 07/04/16 Amlodipine [Norvasc*] 10 mg PO DAILY #30 tab 07/06/16 Aspirin 325 mg PO DAILY 12/22/17 Etodolac 300 mg PO BID PRN 12/22/17 Lisinopril 40 mg PO DAILY 12/22/17 Metformin HCl 1,000 mg PO BID 12/22/17 Triamcinolone 0.1% Crm [Kenalog 0.1% Cream*] 1 boris TOP BID 12/22/17 Patient Discharge Instructions: Please f.u with PCP and Dr Giron in 1 to 2 week post discharge. You are set up with HD MWF at the [facility] in [place] Diet: Regular Activity: Ad gregory Followup: Mazin Grijalva MD [ACTIVE - CAN ADMIT] - 1 Week
--- NOTE | 2017-12-26 18:20 | P.PN ---
Date of Service: 12/26/17 Held Discharge as pt will be getting dialysis ksenia and then Discharge home.
--- NOTE | 2017-12-26 19:11 | EKG ---
Test Date: 2017-12-26 Test Time: 12:37:38 Territory Representative: MARCK MEASUREMENT RESULTS: Intervals: Rate: 87 MD: 142 QRSD: 94 QT: 396 QTc: 476 [place]: P: 36 MD: 142 QRS: 9 T: 76 INTERPRETIVE STATEMENTS: Normal sinus rhythm Nonspecific ST and T wave abnormality Prolonged QT Abnormal ECG Compared to ECG 12/24/2017 11:01:45 Prolonged QT interval now present ST (T wave) deviation still present Electronically Signed On 12-26-17 19:09:36 CDT by Nickolas Jiang
--- NOTE | 2017-12-26 19:52 | PN ---
Date of Progress Note: 12/26/2017 Subjective: The patient doing better, status post dialysis yesterday. The patient started having go od urine output. Physical Examination: Vital Signs: Blood pressure 103/56, pulse of 91, afebrile. Chest: Faint crackles on the base. Heart: S1, S2. Regular. Abdomen: Soft, nontender. Extremities: Plus edema more on the upper extremity. Laboratory Data: WBC 10.7, H and H 8.9/26.1, platelets 308. Sodium of 138, potassium 3, bicarb 26, BUN 16, creatinine 1.8 after dialysis, calcium 8.3, magnesium of 2. Current Medications: The patient on its include: 1.Tylenol. 2.Lasix 40 daily. 3.Gabapentin. 4.Levothyroxine. 5.Metoprolol. 6.Zofran. 7.Pantoprazole. 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 I am going to continue the dialysis for the patient. We will arrange for dialysis tomorrow, then hopefully the patient can be discharged after dialysis. We will keep watching for recovery. 2.Hypertension, controlled, optimal. Currently blood pressure on the lower side. I am going to hol d the [facility], place the patient on Lasix, and we will monitor. 3.Anemia of chronic kidney disease. Light chain disease has been ruled out. Status post transfusion. Continue NAVA. 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 NILTON/DIEUDONNE Voice ID: [id number] Report ID: [id number]
[2017-12-26] MEDS ORDERED: GABAPENTIN 300 MG CAP PO SCH (21:00)
[2017-12-26] MEDS: METOPROLOL TAR 25 MG TAB PO SCH (21:14)
[2017-12-27] MEDS: LEVOTHYROXINE SOD 0.025 MG TAB PO SCH (05:55)
[2017-12-27] MEDS: INSULIN -REGULAR HUMAN 50 UNIT/0.5 ML ML SQ SCH ×2 (07:30→11:30)
[2017-12-27] MEDS ORDERED: EPOETIN ALFA 10,000 UNIT/ML VIAL IV SCH (08:15)
[2017-12-27] MEDS ORDERED: AMLODIPINE 10 MG TAB PO SCH (09:00)
[2017-12-27] MEDS ORDERED: FUROSEMIDE 40 MG TABLET PO SCH (09:00)
[2017-12-27] MEDS ORDERED: ASPIRIN 325 MG TAB PO SCH (09:00)
[2017-12-27] MEDS: PANTOPRAZOLE 40MG TABLET PO SCH (09:02)
[2017-12-27] MEDS: METOPROLOL TAR 25 MG TAB PO SCH (09:02)
--- NOTE | 2017-12-27 10:27 | P.PN ---
Subjective Date of Service: 12/27/17 Primary Care Provider: Dr. Roman; Nephrology-Dr. Sainz Chief Complaint: Shortness of breath, edema Patient seen and examined at bedside with RN. Chart reviewed. Case discussed with cardiology, nephrology, general surgery. Pt getting dialysis right now. Will be Discharged home post dialysis Review of Systems General: As per HPI Physical Examination - Vital Signs Temperature: 97.6 F Blood Pressure: 127/62 Pulse: 79 Respirations: 18 Pulse Ox (%): 98 - Physical Exam General: Alert, In no apparent distress HEENT: Atraumatic, PERRLA, EOMI Neck: Supple, JVD not distended Respiratory: Clear to auscultation bilaterally, Normal air movement Cardiovascular: Regular rate/rhythm, Normal S1 S2 Gastrointestinal: Normal bowel sounds, No tenderness Musculoskeletal: No tenderness Integumentary: No rashes Neurological: Normal speech, Normal tone, Normal affect Lymphatics: No axilla or inguinal lymphadenopathy - Studies Medications List Reviewed: Yes Assessment & Plan - Problems (Diagnosis) (1) Renal failure (ARF), acute on chronic Onset Date: 12/22/17 Current Visit: Yes Status: Acute Plan: Patient with acute kidney injury. Most likely secondary to possible nephrotic syndrome -nephrology consulted here. Appreciated recommendations. -S.P HD perm cath placement. No complication noted. -Will get HD today and then DC home -Setup for OP HD at [facility] done by KARTHIKEYAN -hyperkalemia and metabolic acidosis related to the acute kidney injury has resolved now. Qualifiers: Chronic kidney disease stage: stage 5, not on chronic dialysis (2) Bradycardia Onset Date: 12/22/17 Current Visit: Yes Status: Acute Plan: Resolved now. -status post pacing in the ER. -S/p dopamine drip. Currently heart rate between 80s to 90s (3) Anasarca Onset Date: 12/15/17 Current Visit: No Status: Acute Plan: Most likely secondary to acute renal failure.Resolved (4) Diabetes Onset Date: 09/10/17 Current Visit: No Status: Chronic Qualifiers: Diabetes mellitus type: type 2 Diabetes mellitus exterminator termite insulin use: without exterminator termite use Diabetes mellitus complication status: with unspecified complications Qualified Code(s): E11.8 - Type 2 diabetes mellitus with unspecified complications (5) HTN (hypertension) Onset Date: 09/10/17 Current Visit: No Status: Chronic Qualifiers: Hypertension type: essential hypertension Qualified Code(s): I10 - Essential (primary) hypertension Discharge Plan: Home Plan to discharge in: 24 Hours - Code Status/Comfort Care Code Status Assessed: Yes Critical Care: No
[2017-12-27 10:44] LABS: Albumin 2.9 g/dL (3.4-5.0); Bilirubin Total 0.4 mg/dL (0.2-1.0); Protein, Total 6.2 g/dL (6.4-8.2)
[2017-12-27 10:48] LABS: Potassium 2.9 mmol/L (3.5-5.1)
[2017-12-27 14:21] VITALS: O2SAT 97
[2017-12-27 15:58] VITALS: BP 140/67; TEMP 97.8
--- NOTE | 2017-12-27 21:27 | PN ---
Date of Progress Note: 12/27/2017 Subjective: The patient is status post dialysis, today, we managed to remove 27,000. Objective: Vital Signs: Blood pressure 140/67, pulse of 88. Chest: Crackles bilateral base. Heart: S1, S2. Regular. Abdomen: Soft, nontender. Extremities: Plus edema. Laboratory Data: WBC 10.7, H and H 8.10/26.1, platelets 308. Sodium 139, potassium 2.9, bicarb 28, BUN 14, creatinine 1.6, calcium 8.5. Current Medications: The patient on include: 1.Tylenol. 2.Amlodipine 2.5. 3.Lasix. 4.Gabapentin. 5.Levothyroxine. 6.Metoprolol. 7.Pantoprazole. 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 Oliguric, I again continue dial ysis. We will watch the patient's recovery as outpatient. 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 3.Hypokalemia. The patient dialyzed on high potassium bath. 4.Anemia of chronic kidney disease. Continue Epogen. 5.Anasarca secondary to nephrotic renal failure, continue challenging. PEYMAN Voice ID: [id number] Report ID: [id number]
== END 2017-12-27 17:10 | disposition home or self-care (01) | DRG 673 ==
LOC: ER 12:51 → ERHOLD 15:39 → 3RD-ICU 20:19 → 4TH 12-24 13:52
PROVIDERS: ADMIT Family Medicine; ATTEND Family Medicine
PROC: 06HN33Z Insertion of Infusion Device into Left Femoral Vein, Percutaneous Approach (ICD-10-PCS; 2017-12-20)
PROC: 5A1D70Z Performance of Urinary Filtration, Intermittent, Less than 6 Hours Per Day (ICD-10-PCS; 2017-12-20)
PROC: 3E043XZ Introduction of Vasopressor into Central Vein, Percutaneous Approach (ICD-10-PCS; 2017-12-20)
PROC: 06HM33Z Insertion of Infusion Device into Right Femoral Vein, Percutaneous Approach (ICD-10-PCS; 2017-12-20)
PROC: 5A1223Z Performance of Cardiac Pacing, Continuous (ICD-10-PCS; 2017-12-20)
PROC: 02HV33Z Insertion of Infusion Device into Superior Vena Cava, Percutaneous Approach (ICD-10-PCS; 2017-12-24)
PROC: 0JH63XZ Insertion of Tunneled Vascular Access Device into Chest Subcutaneous Tissue and Fascia, Percutaneous Approach (ICD-10-PCS; principal; 2017-12-24 15:15)
DX: N17.9 Acute kidney failure, unspecified (principal); I46.2 Cardiac arrest due to underlying cardiac condition; I50.33 Acute on chronic diastolic (congestive) heart failure; I13.2 Hypertensive heart and chronic kidney disease with heart failure and with stage 5 chronic kidney disease, or end stage renal disease; E87.2 Acidosis; E11.21 Type 2 diabetes mellitus with diabetic nephropathy; D63.1 Anemia in chronic kidney disease; E11.22 Type 2 diabetes mellitus with diabetic chronic kidney disease; R00.1 Bradycardia, unspecified; I95.9 Hypotension, unspecified; Z66 Do not resuscitate; E87.5 Hyperkalemia; Z79.84 Long term (current) use of oral hypoglycemic drugs; Z79.82 Long term (current) use of aspirin; N18.6 End stage renal disease; E83.42 Hypomagnesemia; E87.6 Hypokalemia; E03.9 Hypothyroidism, unspecified; T68.XXXA Hypothermia, initial encounter; E11.42 Type 2 diabetes mellitus with diabetic polyneuropathy; I49.1 Atrial premature depolarization; E78.5 Hyperlipidemia, unspecified; Z91.048 Other nonmedicinal substance allergy status
CPT/HCPCS: 36415; 51702; 71045; 76000; 80048; 80053; 80076; 80329; 82010; 82550; 82553; 82805; 82962; 83605; 83735; 83880; 84100; 84439; 84443; 84484; 84550; 85014; 85018; 85025; 85610; 85730; 86317; 86704; 86706; 87040; 87070; 87340; 90935; 93005; 93306; 96365; 96366; 96375; 97163; 99291; 99292; C1752; J0610; J0690; J1265; J1642; J1644; J2150; J2370; J3475; J7030; P9047; Q4081

== ENCOUNTER 2018-01-28 09:10 | Inpatient (IN) | payer OTHER ==
--- OUTSIDE RECORDS SUMMARY | 2018-01-28 09:16 | XMS REPORT | Clinical Summary ---
:1935 Author Organization [facility] Address [address] [place] [address] Phone Care Team Providers Name Role Phone [...] Acute exacerbation of CHF (congestive heart failure) ([facility]) 11/18/2017 Acute cystitis without hematuria 11/18/2017 Hyperkalemia 11/18/2017 Type 2 diabetes mellitus with complication, without long-term current use of insulin ([facility]) Bradycardia 11/18/2017 Shortness of breath 11/18/2017 BASSEM (acute kidney injury) ([facility]) 11/18/2017 Encounters Date Type Specialty Care Team Description 11/18/2017 - Hospital Encounter General Internal Elio Mccain BASSEM (acute kidney 12/03/2017 Emilio Agrawal MD injury) ([facility]) Charles De La Torre MD 11/18/2017 Orders Only General Internal Medicine after 01/27/2017 Social History Tobacco Use Types Packs/Day Years [...] 12/03/2017 6:01 AM CDT Plan of Treatment Not on file Procedures Procedure Name Priority Date/Time Associated Diagnosis Comments US GUIDE, VASCULAR Routine 11/18/2017 2:43 PM BASSEM (acute kidney Results for this ACCESS CDT injury) ([facility]) procedure are in the results section. INSERT NON-TUNNEL Routine 11/18/2017 2:43 PM BASSEM (acute kidney Results for this CV CATH CDT injury) ([facility]) procedure are in the results section. after 01/27/2017 Results RHYTHM STRIP - SCAN (12/05/2017 1:41 PM)POC-Glucose meter (12/03/2017 5:13 PM) Only the most recent of62 resultswithin the time period is included. Component Value Ref Range POC-Glucose Meter 229 (H)Comment: TESTED AT [address] 70 - 110 mg/[place] [address] Specimen Performing Laboratory Blood [address] [address] CBC with platelet count + automated diff [...] - 1 % Specimen Performing Laboratory Blood [address] [address] CBC with platelet count + automated diff (12/03/2017 4:58 AM)Only the most recent of16 resultswithin the time period is included. Specimen Performing Laboratory Blood Narrative The following orders were created for panel order CBC with platelet count + automated diff. Procedure Abnormality Status --------- ------ CBC with platelet count ...[[id number]]AbnormalFinal result Please view results for these tests on the individual orders. Phosphorus (12/03/2017 4:58 AM)Only the most recent of18 resultswithin the time period is included. Component Value Ref Range Phosphorus 3.8 2.3 - 4.7 mg/dL Specimen Performing Laboratory Blood [address] [address] Magnesium (12/03/2017 4:58 AM)Only the most recent of18 resultswithin the time period is included. Component Value Ref Range Magnesium 1.7 1.6 - 2.6 mg/dL Specimen Performing Laboratory Blood [address] [address] Basic Metabolic Panel (12/03/2017 4:58 AM)Only the [...] FOR DIALYSIS PATIENTS. Specimen Performing Laboratory Blood [address] [address] Urinalysis w/Microscopic (12/02/2017 10:53 PM)Only the most recent of2 resultswithin the time period is included. Component Value Ref Range Color, UA Light Yellow Clarity, UA Clear Specific Purmela, UA 1.007 1.001 - 1.035 pH, UA [...] Performing Laboratory Urine - Urine, Clean Catch [address] [address] Manual Differential (11/30/2017 5:31 AM)Only the most [...] Platelet Conc Adequate Specimen Performing Laboratory Blood [address] [address] Narrative Received comment: User comments: Slide comments: Calcium, Ionized (11/29/2017 6:44 AM)Only the most recent of12 resultswithin the time period is included. Component Value Ref Range Calcium, Ion 1.08 (L) 1.12 - 1.27 mmol/L pH, Blood 7.32 Specimen Performing Laboratory Blood [address] [address] Comprehensive metabolic panel (11/29/2017 6:44 AM)Only the [...] FOR DIALYSIS PATIENTS. Specimen Performing Laboratory Blood [address] [address] Hemoglobin and hematocrit (11/28/2017 5:20 PM) Component Value Ref Range Hemoglobin 9.0 (L) 13.7 - 17.5 GM/DL Hematocrit 27.6 (L) 40.1 - 51.0 % Specimen Performing Laboratory Blood - Central Venous Line [address] [address] Narrative Call [phone] Tissue Exam (11/28/2017 11:15 AM) Component Value Ref Range Case Report Surgical Pathology Report Case: [id number] Authorizing Provider:Charles De La Torre, Collected: 11/28/2017 Pauline COOMBS Ordering Location: [address] Received: 11/28/2017 1115 Service Pathologist: Bryant Rodriguez MD Specimen:Kidney, [place] KIDNEY DIAGNOSIS KIDNEY, LEFT, NEEDLE BIOPSIES - ADVANCED DIABETIC GLOMERULOSCLEROSIS - NEGATIVE FOR IMMUNE MEDIATED GLOMERULONEPHRITIS - DIFFUSE INTERSTITIAL FIBROSIS AND TUBULAR ATROPHY (~70%) - MODERATE TO SEVERE ARTERIAL INTIMAL SCLEROSIS - DIFFUSE ARTERIOLAR HYALINOSIS - SEE COMMENT Signing Pathologist Direct Phone Line: [phone] COMMENT No immune mediated glomerulosclerosis is seen [...] of renal parenchyma. Reference: 1. Alexys James., Kamryn, Bea., Amy Blackmon., Luis Antonio Hunter., Mireille Cunningham., Monalisa Milan., Stephanie Chau., Nohemy Asencio., Gelacio Guerra, de [place] Moore., et al. Pathologic classification of diabetic nephropathy. J Am Soc Nephrol 21:556-563, 2010. The results were communicated to Dr. Holder by Dr. Rodriguez on 12/01/2017. CPT Code(s) 68281, 04891 x3, 24926, 13001 x7, 79679 CLINICAL HISTORY History as communicated by Dr. Holder: 82 year old with long standing history of DM, now presents with increase in serum creatinine and 3g proteinuria. All serologies negative SPECIMEN SOURCE [place] kidney biopsy GROSS DESCRIPTION The specimen is received in three parts all labeled with the patient's information and labeled "[place] kidney biopsy". Received in formalin are two [...] no significant glomerular, tubulointerstitial or vascular staining. Crisman: negative in open glomeruli, focal weak granular [...] measuring upto 1163 nm (normal male avera zn=560 - 430 nm nm; Mari Brizuela Arch Pathol Lab Med 133; 224-232). Subendothelial , subepithelial, and mesangial/paramesangial electron-dense, immune complex- type deposits are not present. Podocyte foot proc esses are diffusely effaced with microvillous change. Specimen Performing Laboratory Tissue - Kidney [address] renal biopsy (11/28/2017 10:40 AM) Specimen Performing Laboratory [facility] Narrative FINAL REPORT Ultrasound guided core biopsy of the left [place] kidney dated 11/28/2017 Procedure: Core biopsy of the left [place] kidney. Clinical Indication: Proteinuria Sedation: Moderate sedation [...] ultrasound guided core biopsy of the left [place] kidney was performed under usual sterile technique. Using an 18 gauge core biopsy needle, puncture was made posteriorly on the left with real time ultrasound guidance. 2 passes were performed withsufficient material for histology. Patient tolerated procedure well. Complication: None Estimated Blood Loss: None The specimen was sent to pathology. Impression: Successful ultrasound-guided core biopsy of the left [place] kidney. Signed: Davon Diallo MD Report Verified Date/Time:11/28/2017 10:42:49 Reading Location: [address] Ultrasound Reading Room Procedure Note Interface, External Ris In - 11/28/2017 12:12 PM CDT FINAL REPORT Ultrasound guided core biopsy of the left [place] kidney dated 11/28/2017 Procedure: Core biopsy of the left [place] kidney. Clinical Indication: Proteinuria Sedation: Moderate sedation [...] ultrasound guided core biopsy of the left [place] kidney was performed under usual sterile technique. Using an 18 gauge core biopsy needle, puncture was made posteriorly on the left with real time ultrasound guidance. 2 passes were performed with sufficient material for histology. Patient tolerated procedure well. Complication: None Estimated Blood Loss: None The specimen was sent to pathology. Impression: Successful ultrasound-guided core biopsy of the left [place] kidney. Signed: Davon Diallo MD Report Verified Date/Time: 11/28/2017 10:42:49 Reading Location: [address] Ultrasound Reading Room chest 1 view portable / bedside (11/27/2017 8:38 AM)Only the most recent of2 resultswithin the time period is included. Specimen Performing Laboratory [facility] Narrative FINAL REPORT CLINICAL HISTORY: edema TECHNIQUE: 1 view of the chest. COMPARISON: 11/18/2017 IMPRESSION: The right central line remains in the SVC. Mild bilateral airspace opacities have decreased. Trace bilateral pleural effusions remain. The cardiomediastinal silhouette is magnified by technique. Signed: Loida Phillips MD Report Verified Date/Time:11/27/2017 08:40:13 Reading Location: [facility] Radiology Reading Room Procedure Note Interface, External [...] Report Verified Date/Time: 11/27/2017 08:40:13 Reading Location: [facility] Radiology Reading Room B-type Natriuretic Factor (BNP) (11/27/2017 6:01 AM)Only the most recent of3 resultswithin the time period is included. Component Value Ref Range BNP 109 (H) 0 - 100 pg/mL Specimen Performing Laboratory Blood - Central Venous Line [address] [address] Prothrombin time/INR (11/26/2017 5:46 AM)Only the most recent of5 resultswithin the time period is included. Component Value Ref Range Protime 15.1 (H) 11.7 - 14.7 seconds INR 1.2 <=5.9 Specimen Performing Laboratory Blood - Central Venous Line [address] [address] Narrative RECOMMENDED COUMADIN/WARFARIN INR THERAPY RANGES STANDARD [...] Screen Negative Negative Specimen Performing Laboratory Urine [address] [address] Narrative DRUGCUTOFF CONC. Cocaine 300 ng/mL Gijsrpjjzpd11 ng/mL Anukgesdxtocap136 ng/mL Barbiturate 200 ng/mL Oiniytmrihecj52 ng/mL Gsizrw903 ng/mL Methadone 300 ng/mL Amphetamine/ 1000 ng/mL Methamphetamine Oxycodone 300 ng/mL This assay provides an unconfirmed qualitative test result for the clinical management of patients in emergency situations. Chain of custody not maintained. Some envu-pfa-qindzah medications, as well as adulterants, may cause [...] Specimen Performing Laboratory Urine - Urine, Voided [address] [address] Urine Protein Electrophoresis, 24 hour (11/22/2017 11:19 [...] Specimen Performing Laboratory Urine - Urine, Voided [address] [address] Protein, 24 hour urine (11/22/2017 11:19 PM) Component Value Ref Range Protein, 24hr Urine 2992 (H) 0 - 300 mg/24hr Volume, Urine 1700 ml Protein, Urine 176 (H) 0 - 14 mg/dL Specimen Performing Laboratory Urine - Urine, Voided [address] [address] Urinalysis w/Microscopic + Reflex to Culture (11/21/2017 7:08 PM)Only the most recent of2 resultswithin the time period is included. Component Value Ref Range Color, UA Light Yellow Clarity, UA Clear Specific Purmela, UA 1.005 1.001 - 1.035 pH, UA [...] Specimen Performing Laboratory Urine - Urine, Voided [address] [address] Hemoglobin A1c (11/21/2017 4:08 AM)Only the most recent of2 resultswithin the time period is included. Component Value Ref Range Hemoglobin A1C 5.9 4.3 - 6.1 % Specimen Performing Laboratory Blood - Central Venous Line [address] [address] NM myocardial perfusion PET (rest and stress) (11/20/2017 12:03 PM) Specimen Performing Laboratory GE [facility] Narrative FINAL REPORT PROCEDURE:Rest/Stress MYOCARDIAL PERFUSION PET with regadenoson\\XA9\\ CPT CODE:95168 INDICATION:Chest pain, risk factors for CAD HISTORY:Cardiac [...] Extracardiac tracer distribution is normal.6. No previous [facility] study for comparison. NONINVASIVE RISK STRATIFICATION: The above findings are considered intermediate risk (1% to 3% annual mortality rate) based on the following criterion: - Mild/moderate resting left ventricular dysfunction (LVEF 35% to 49%) - Stress-induced moderate perfusion defect without LV dilation or increased lung intake (thallium-201) (JACC. 2012;59(9):021-37.) Signed: Venancio Saenz MD Report Verified Date/Time:11/20/2017 14:59:03 Reading Location: [address] Reading Room Procedure Note Interface, External Ris In - 11/20/2017 3:01 PM CDT FINAL REPORT PROCEDURE: Rest/Stress MYOCARDIAL PERFUSION PET with regadenoson\\XA9\\ CPT CODE: 12028 INDICATION: Chest pain, risk factors for CAD [...] tracer distribution is normal. 6. No previous [facility] study for comparison. NONINVASIVE RISK STRATIFICATION: The above findings are considered intermediate risk (1% to 3% annual mortality rate) based on the following criterion: - Mild/moderate resting left ventricular dysfunction (LVEF 35% to 49%) - Stress-induced moderate perfusion defect without LV dilation or increased lung intake (thallium-201) (JACC. 2012;59(9):857-98.) Signed: Venancio Saenz MD Report Verified Date/Time: 11/20/2017 14:59:03 Reading Location: [address] [facility] Reading Room Treadmill tolerance(Non-Nuclear Treadmill) [...] 1:18:29 PM Confirmed by MD GLORIA MAJID ([id number]) on 11/21/2017 3:56:57 PM Procedure Note Interface, [...] Laboratory Blood, Arterial [place] [address] Narrative Effective 09/27/2015: Units/Reference Range Change New: 0.5-2.2 mmol/LPrevious: 5-20 mg/dL TSH/Free T4 If Indicated (11/20/2017 4:34 AM) Component Value Ref Range TSH 1.55 0.35 - 4.94 uIU/mL Specimen Performing Laboratory Blood - Central Venous Line [address] [address] Hepatitis panel, acute (11/20/2017 4:34 AM) Component Value Ref Range Hep A IgM Nonreactive Nonreactive Hep B C IgM Nonreactive Nonreactive Hepatitis C Ab Nonreactive Nonreactive hepatitis B Surface Ag Nonreactive Nonreactive Specimen Performing Laboratory Blood - Central Venous Line [address] [address] Vitamin D, 25-Hydroxy (11/20/2017 4:34 AM) Component Value Ref Range Vitamin D 25-Hydroxy 14.3 6.6 - 49.9 ng/mL Specimen Performing Laboratory Blood - Central Venous Line [address] [address] Narrative Effective 03/05/2017: Reference Range Change New: 6.6-49.9 ng/mL Previous: 13.0-47.8 ng/mL Recommended Vitamin D Target Range: 30.0-40.0 ng/mL Complement Component C3 (11/20/2017 4:34 AM) Component Value Ref Range C3 Complement 82 82 - 193 mg/dL Specimen Performing Laboratory Blood - Central Venous Line [address] [address] Complement Component C4 (11/20/2017 4:34 AM) Component Value Ref Range C4 Complement 23 15 - 57 mg/dL Specimen Performing Laboratory Blood - Central Venous Line [address] [address] Uric acid (11/20/2017 4:34 AM) Component Value Ref Range Uric Acid 3.9 2.6 - 7.2 mg/dL Specimen Performing Laboratory Blood - Central Venous Line [address] [address] PTH, intact (11/20/2017 4:34 AM) Component Value Ref Range PTH 247.5 (H) 8.5 - 72.5 pg/mL Specimen Performing Laboratory Blood - Central Venous Line [facility] [address] [place] [address] Creatine Kinase (CK) (11/20/2017 4:34 AM) Component Value Ref Range Total CK 97 29 - 200 U/L Specimen Performing Laboratory Blood - Central Venous Line [address] [address] TRANSFUSION SERVICE REPORT - SCAN (11/19/2017 6:01 PM)Venous doppler arms bilateral (11/19/2017 4:55 PM) Component Value Ref Range Ejection Fraction Specimen Performing Laboratory [facility] MKCKESSON CPACS Impressions Right Impression [...] Name NAYLA GALLO Date of Study 11/19/2017 [id number] Age 82 Visit Number [id number] GenderMale Accession Number [id number] [facility] 1935 [id number] Physician SonographAbida Jaime InterpretingDorothy Moore MD, [facility] Procedure Type of Study: Veins: Upper [...] of Study 11/19/2017 Age 82 Visit Number [id number] Gender Male Accession Number [id number] Date of 1935 [facility] Room Number [id number] Physician Tearer Esteban Jaime Interpreting Dorothy Moore MD, RVS Physician RPVI Procedure Type [...] signature) Specimen Performing Laboratory Urine - Urine, [place] [address] ECG 12 lead (11/19/2017 4:03 PM)Only the most recent of2 resultswithin the time period is included. Specimen Performing Laboratory GE MUSE Narrative Ventricular Rate 90 BPM Atrial Rate 90 BPM P-R Interval 158 ms QRS Duration 96 ms Q-T Interval 472 ms QTC Calculation(Bazett) 577 ms P Planada 53 degrees R Planada 14 degrees T Planada 64 degrees Normal sinus rhythm ST & T wave abnormality, consider inferior ischemia Prolonged QT Abnormal ECG When compared with ECG of 18-NOV-2017 09:59, Non-specific change in ST segment in Anterior leads T wave inversion now evident in Inferior leads QT has lengthened Confirmed by MD CHEN JOSEPH P ([id number]) on 11/20/2017 5:07:59 PM Procedure Note Interface, External Ris In - 11/20/2017 5:08 PM CDT Ventricular Rate 90 BPM Atrial Rate 90 BPM P-R Interval 158 ms QRS Duration 96 ms Q-T Interval 472 ms QTC Calculation(Bazett) 577 ms P Plan[place] 53 degrees R Plan[place] 14 degrees T Plan[place] 64 degrees Normal sinus rhythm ST & T wave abnormality, consider inferior ischemia Prolonged QT Abnormal ECG When compared with ECG of 18-NOV-2017 09:59, Non-specific change in ST segment in Anterior leads T wave inversion now evident in Inferior leads QT has lengthened Confirmed by MD CHEN JOSEPH P ([id number]) on 11/20/2017 5:07:59 PM Sodium, random urine (11/19/2017 3:27 PM) Component Value Ref Range Sodium Urine 91 meq/L Specimen Performing Laboratory Urine - Urine, [address] [address] Narrative Reference Range: No Normals Protein, random urine (11/19/2017 3:27 PM) Component Value Ref Range Protein, Urine 94 (H) 0 - 14 mg/dL Specimen Performing Laboratory Urine - Urine, [address] [address] Creatinine, random urine (11/19/2017 3:27 PM) Component Value Ref Range Creatinine, Ur <5.0 mg/dL Specimen Performing Laboratory Urine - Urine, [place] [address] Narrative Reference Range: No Normals Troponin I (11/19/2017 3:24 PM)Only the most recent of5 resultswithin the time period is included. Component Value Ref Range Troponin I 0.06 (H) 0.00 - 0.03 ng/mL Specimen [place] [address] Narrative Troponin I (TnI) levels must be [...] - 8.3 gm/dL Specimen Performing Laboratory Blood [address] [address] HIV-1 Antigen with HIV-1/2 Antibody (11/19/2017 3:21 PM) Component Value Ref Range HIV-1 Antigen with HIV 1&2 Antibody Nonreactive Nonreactive Specimen Performing Laboratory Blood - Central Venous Line [address] [address] Glomerular basement membrane antibody (11/19/2017 3:21 PM) Component Value Ref Range GBM Ab <1.0 <1.0 AI Comment: Interpretation: < 1.0 AI No Antibody Detected > OR=1.0 AI Antibody Detected Specimen Performing Laboratory Blood - Central Venous Line [facility] [address] [place] [address] Narrative Performing Lab [facility] [address] [id number] [place] [address] Stephen Sneed MD, PhD, DONNY Rheumatoid factor Ab, reflex to titer (11/19/2017 3:21 PM) Component Value Ref Range Rheumatoid Factor Positive Specimen Performing Laboratory Blood - Central Venous Line [address] [address] Anti-Neutrophil Cytoplasmic Ab (ANCA) (11/19/2017 3:21 PM) Component Value Ref Range Proteinase-3 Ab <1.0 <1.0 AI Comment: <1.0 AI No Antibody Detected > or=1.0 AI Antibody Detected Autoantibodies to proteinase-3 (CO-3) are accepted as characteristic for granulomatosis with polyangiitis (GPA, Skyla's), and are detectable in 95% of the histologically proven cases. The cytoplasmic IFA pattern, (c-ANCA), is based largely on autoantibody to CO-3 which serves as the primary antigen. These [...] - Central Venous Line [facility] [address] [place] [address] Narrative Performing Lab [facility] [address] [place] [address] Stephen Sneed MD, PhD, DONNY Rheumatoid factor titer (11/19/2017 3:21 PM) Component Value Ref Range Rheumatoid Factor TTR 1:8 Specimen Performing Laboratory Blood - Central Venous Line [address] [address] Anti-Nuclear Antibody (YOLA) (11/19/2017 3:21 PM) Component Value Ref Range YOLA Negative Negative Specimen Performing Laboratory Blood - Central Venous Line [address] [address] Lactic acid, venous, whole blood (11/19/2017 6:17 AM)Only the most recent of5 resultswithin the time period is included. Component Value Ref Range Lactate, Venous 3.8 (H)Comment: Specimen slightly hemolyzed 0.5 - 2.2 mmol/L Specimen Performing Laboratory Blood - Central Venous Line [address] [address] Narrative Effective 09/27/2015: Units/Reference Range Change New: 0.5-2.2 mmol/LPrevious: 5-20 mg/dL Potassium (11/19/2017 6:17 AM)Only the most recent of4 resultswithin the time period is included. Component Value Ref Range Potassium 4.6 3.5 - 5.1 meq/L Specimen Performing Laboratory Blood - Central Venous Line [address] [address] Creatine Kinase (CK), Total and MB (11/19/2017 6:17 AM)Only the most recent of4 resultswithin the time period is included. Component Value Ref Range Total CK 141 29 - 200 U/L CK-MB 7.9 (H) 0.0 - 6.6 ng/mL MB Relative Index 5.6 % Specimen Performing Laboratory Blood - Central Venous Line [address] [address] Narrative CK-MB Reference Range: <6.7Normal 6.7-10.0Borderline >10.0 Abnormal ECHOCARDIOGRAM REPORT - SCAN (11/18/2017 5:14 PM)Central Line (11/18/2017 2: 43 PM) Narrative Adalberto Horan ACNP 11/18/20172:43 PM Central Line Date/Time: 11/18/2017 8:00 [...] to verify the correct patient, procedure, equipment, customer support analyst and site/side marked as required. Indications: vascular [...] Ref Range Ejection Fraction Specimen Performing Laboratory [facility] MK[facility] Narrative Transthoracic Echocardiography Report (TTE) Demographics Patient Name NAYLA GALLO Date of Study 11/18/2017 [id number] GenderMale Visit Number [id number] Race Unknown [id number] Number 6A09 Number Date of Birth1935 Referring Physician Angela Cormier MD Age82 year(s) Tearer Ian Sanchez [facility] Laurie Longoria,Interpreting Sabino Chen MD [facility] Physician Procedure Type of Study TTE procedure:2DECHO [...] of Study 11/18/2017 Gender Male Visit Number [id number] Race Unknown Room Number 6A09 Number Date of 1935 Referring Physician Angela Cormier MD Age 82 year(s) Tearer Ian Sanchez [facility] [address] Pam Longoria, Interpreting Sabino Chen MD [facility] Physician Procedure Type of Study TTE procedure:2DECHO [...] complete (11/18/2017 1:48 PM) Specimen Performing Laboratory Unified Color FINAL REPORT Ultrasound of the Kidneys Clinical [...] MD Report Verified Date/Time:11/18/2017 16:16:10 Reading Location: [address] Ultrasound Reading Room Procedure Note [...] Report Verified Date/Time: 11/18/2017 16:16:10 Reading Location: [address] Ultrasound Reading Room Blood gas, [...] FIO2 36.0 % Specimen Performing Laboratory Blood [facility] [address] [address] Hepatitis C antibody (11/18/2017 10:15 AM) Component Value Ref Range Hepatitis C Ab Nonreactive Nonreactive Specimen Performing Laboratory Blood [address] [address] Hepatitis B core antibody, IgM (11/18/2017 10:15 AM) Component Value Ref Range Hep B C IgM Nonreactive Nonreactive Specimen Performing Laboratory Blood [address] [address] Hepatitis B core antibody, total (11/18/2017 10:15 AM) Component Value Ref Range Hep B Core Total Ab Nonreactive Nonreactive Specimen Performing Laboratory Blood [address] [address] Hepatitis B surface antigen (11/18/2017 10:15 AM) Component Value Ref Range hepatitis B Surface Ag Nonreactive Nonreactive Specimen Performing Laboratory Blood [address] [address] Hepatic function panel (11/18/2017 8:57 AM) Component [...] Performing Laboratory Blood - Central Venous Line [address] [address] Narrative Call [phone] Electrolytes (11/18/2017 8:57 AM) Component Value Ref Range Sodium 133 (L) 136 - 145 meq/L Potassium 6.8 (HH) 3.5 - 5.1 meq/L Chloride 102 98 - 107 meq/L CO2 8 (LL) 22 - 29 meq/L Specimen Performing Laboratory Blood - Central Venous Line [address] [address] Narrative Call [phone] Type and screen, automated (11/18/2017 5:47 AM) Component Value Ref Range ABO/RH AUTOMATED (BEAKER) O POSITIVE Ab Scrn NEGATIVE Specimen Performing Laboratory [place] [address] Blood culture (11/18/2017 5:46 AM) Component Value Ref Range Result No growth in 5 days Specimen Performing Laboratory Blood - Central Venous Line [facility] [address] [id number] after 01/27/2017
--- OUTSIDE RECORDS SUMMARY | 2018-01-28 09:18 | XMS REPORT ---
:1935 [facility] [address] [place] [address] Dr. Berumen [address] [place] [id number] Care Team Providers Name Role Phone CLARITA GUZMAN Unavailable Unavailable Problems This patient has no known problems. Allergies, Adverse Reactions, Alerts This patient has no known allergies or adverse reactions. Medications This patient has no known medications. Results Test Description Test Time Test Comments Text Results Atomic Results Result Comments TISSUE EXAM 2017-12-09 18:37:00 Surgical Pathology Report Case: [id number] Authorizing Provider: Charles De La Torre, Collected: 11/28/2017 Talya5 Ordering Location: [address] Received: 11/28/2017 1115 Service Pathologist: Brynat Rodriguez MD Specimen: Kidney, [place] KIDNEY KIDNEY, LEFT, NEEDLE BIOPSIES- ADVANCED DIABETIC GLOMERULOSCLEROSIS- NEGATIVE FOR IMMUNE MEDIATED GLOMERULONEPHRITIS- DIFFUSE INTERSTITIAL FIBROSIS AND TUBULAR ATROPHY (~70%)- MODERATE TO SEVERE ARTERIAL INTIMAL SCLEROSIS- DIFFUSE ARTERIOLAR HYALINOSIS- SEE COMMENT Signing Pathologist Direct Phone Line: [phone] signed by Bryant Rodriguez MD on 12/09/2017 [...] H.T., Lucho Milan, Ellie Chau, Nohemy Asencio., Gelacio Guerra, de Rock Moore., et al. Pathologic classification of diabetic nephropathy. J Am Soc Nephrol 21:556-563, 2010.The results were communicated to Dr. Holder by Dr. Rodriguez on 12/01/[id number], [id number] x3, 33439, 85005 x7, [id number] as communicated by Dr. Holder: 82 year old with long standing history of DM, now presents with increase in serum creatinine and 3g proteinuria. All serologies negativeNative kidney biopsyThe specimen is received in three parts all labeled with the patient's information and labeled "[place] kidney biopsy". Received in formalin are two [...] no significant glomerular, tubulointerstitial or vascular staining. [place]: negative in open glomeruli, focal weak granular [...] focally measuring upto 1163 nm (normal male jrmbmzz=017 - 430 nm nm; Mari Oakes. Arch Pathol Lab Med 133; 224-232). Subendothelial, subepithelial, and mesangial/paramesangial electron-dense, immune complex-type deposits are not present. 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 POCT-GLUCOSE METER 2017-12-03 17:15:00 Test Item Value Reference Range Comments POC-GLUCOSE METER (BEAKER) (test 229 mg/dL 70-110 TESTED AT [address] tcsy=3286) [facility] [address] POCT-GLUCOSE [id number] 12:01:00 Test Item Value Reference Range Comments POC-GLUCOSE METER (BEAKER) 254 mg/dL 70-110 TESTED AT [address] (test epcw=9331) [facility] [address] POCT-GLUCOSE [id number] 07:46:00 Test Item Value Reference Range Comments POC-GLUCOSE METER (BEAKER) 233 mg/dL 70-110 TESTED AT [address] (test ldni=2900) [place] [id number] 05:56:00 Test Item Value Reference Range Comments PHOSPHORUS (BEAKER) (test ypus=859) 3.8 mg/dL 2.3-4.7 [id number] 05:56:00 Test Item Value Reference Range Comments MAGNESIUM (BEAKER) (test zyag=844) 1.7 mg/dL 1.6-2.6 BASIC METABOLIC [id number] 05:56:00 Test Item Value Reference Range Comments SODIUM (BEAKER) (test 132 meq/L 136-145 vdhw=680) POTASSIUM (BEAKER) (test 4.4 meq/L 3.5-5.1 rhqi=694) CHLORIDE (BEAKER) (test 104 meq/L 98-107 gtfi=154) CO2 (BEAKER) (test 18 meq/L 22-29 xtgq=221) BLOOD UREA NITROGEN 44 mg/dL 7-21 (BEAKER) (test zyil=015) CREATININE (BEAKER) (test 1.90 mg/dL 0.57-1.25 azvd=930) GLUCOSE RANDOM (BEAKER) 204 mg/dL 70-105 (test tfnn=171) CALCIUM (BEAKER) (test 8.8 mg/dL 8.4-10.2 gmww=601) EGFR (BEAKER) (test 34 mL/min/1.73 sq m ESTIMATED GFR IS NOT xzup=6216) ACCURATE CREATININE CLEARANCE IN PREDICTING GLOMERULAR FILTRATION RATE. ESTIMATED GFR IS NOT APPLICABLE FOR DIALYSIS PATIENTS. CBC W/PLT COUNT & AUTO [id number] 05:25:00 Test Item Value Reference Range Comments WHITE BLOOD CELL COUNT (BEAKER) (test nxbq=173) 10.6 K/ L 3.5-10.5 RED BLOOD CELL COUNT (BEAKER) (test noga=822) 2.90 M/ L 4.63-6.08 HEMOGLOBIN (BEAKER) (test xjys=191) 8.3 GM/DL 13.7-17.5 HEMATOCRIT (BEAKER) (test tuej=461) 25.4 % 40.1-51.0 MEAN CORPUSCULAR VOLUME (BEAKER) (test gbik=351) 87.6 fL 79.0-92.2 MEAN CORPUSCULAR HEMOGLOBIN (BEAKER) (test 28.6 pg 25.7-32.2 mjsa=287) MEAN CORPUSCULAR HEMOGLOBIN CONC (BEAKER) (test 32.7 GM/DL 32.3-36.5 qmnp=281) RED CELL DISTRIBUTION WIDTH (BEAKER) (test 13.8 % 11.6-14.4 tubj=810) PLATELET COUNT (BEAKER) (test rpgk=517) 490 K/CU MM 150-450 MEAN PLATELET VOLUME (BEAKER) (test yuku=933) 8.9 fL 9.4-12.4 NUCLEATED RED BLOOD CELLS (BEAKER) (test 0 /100 WBC 0-0 wnut=838) NEUTROPHILS RELATIVE PERCENT (BEAKER) (test 63 % agnb=638) LYMPHOCYTES RELATIVE PERCENT (BEAKER) (test 16 % rivq=895) MONOCYTES RELATIVE PERCENT (BEAKER) (test 12 % hanz=741) EOSINOPHILS RELATIVE PERCENT (BEAKER) (test 6 % nfrd=560) BASOPHILS RELATIVE PERCENT (BEAKER) (test 1 % oefr=775) NEUTROPHILS ABSOLUTE COUNT (BEAKER) (test 6.69 K/ L 1.78-5.38 igya=468) LYMPHOCYTES ABSOLUTE COUNT (BEAKER) (test 1.71 K/ L 1.32-3.57 liwo=899) MONOCYTES ABSOLUTE COUNT (BEAKER) (test 1.26 K/ L 0.30-0.82 yjxf=899) EOSINOPHILS ABSOLUTE COUNT (BEAKER) (test 0.68 K/ L 0.04-0.54 rgqv=041) BASOPHILS ABSOLUTE COUNT (BEAKER) (test 0.12 K/ L 0.01-0.08 hnde=487) IMMATURE GRANULOCYTES-RELATIVE PERCENT (BEAKER) 2 % 0-1 (test zuvg=1811) URINALYSIS W/ [id number] 23:14:00 Test Item Value Reference Range Comments COLOR (BEAKER) (test qpnm=767) Light Yellow CLARITY (BEAKER) (test tljr=089) Clear SPECIFIC GRAVITY UA (BEAKER) (test 1.007 1.001-1.035 jrec=366) PH UA (BEAKER) (test bdod=495) 6.5 5.0-8.0 PROTEIN UA (BEAKER) (test jgwh=414) 600 mg/dL Negative GLUCOSE UA (BEAKER) (test fydl=191) 500 mg/dL Negative KETONES UA (BEAKER) (test tjgl=285) Negative Negative BILIRUBIN UA (BEAKER) (test iyhe=648) Negative Negative BLOOD UA (BEAKER) (test xcbd=945) Small Negative NITRITE UA (BEAKER) (test eaph=100) Negative Negative LEUKOCYTE ESTERASE UA (BEAKER) (test Negative Negative jghn=125) UROBILINOGEN UA (BEAKER) (test njfr=159) 0.2 mg/dL 0.2-1.0 RBC UA (BEAKER) (test hcdr=875) 3 /HPF WBC UA (BEAKER) (test dsye=486) 2 /HPF SQUAMOUS EPITHELIAL (BEAKER) (test < /HPF ulln=312) HYALINE CASTS (BEAKER) (test frmz=426) 2 /LPF AMORPHOUS CRYSTALS (BEAKER) (test Rare ffyp=7634) SOURCE(BEAKER) (test dyar=2525) Urine, Clean Catch POCT-GLUCOSE [id number] 21:20:00 Test Item Value Reference Range Comments POC-GLUCOSE METER (BEAKER) 206 mg/dL 70-110 TESTED AT [address] (test hiji=9876) [place] [address] POCT-GLUCOSE [id number] 17:20:00 Test Item Value Reference Range Comments POC-GLUCOSE METER (BEAKER) 268 mg/dL 70-110 TESTED AT [address] (test wfhq=3162) [place] [address] POCT-GLUCOSE [id number] 16:20:00 Test Item Value Reference Range Comments POC-GLUCOSE METER (BEAKER) 249 mg/dL 70-110 TESTED AT [address] (test ycal=8208) [place] [address] POCT-GLUCOSE [id number] 14:29:00 Test Item Value Reference Range Comments POC-GLUCOSE METER (BEAKER) 196 mg/dL 70-110 TESTED AT [address] (test wbgi=1792) [place] [address] [id number] 08:17:00 Test Item Value Reference Range Comments PHOSPHORUS (BEAKER) (test lzft=193) 3.8 mg/dL 2.3-4.7 [id number] 08:17:00 Test Item Value Reference Range Comments MAGNESIUM (BEAKER) (test qilz=176) 1.7 mg/dL 1.6-2.6 BASIC METABOLIC [id number] 08:17:00 Test Item Value Reference Range Comments SODIUM (BEAKER) (test 133 meq/L 136-145 agzh=280) POTASSIUM (BEAKER) (test 4.7 meq/L 3.5-5.1 cnhx=006) CHLORIDE (BEAKER) (test 105 meq/L 98-107 siwj=039) CO2 (BEAKER) (test 19 meq/L 22-29 llzr=738) BLOOD UREA NITROGEN 42 mg/dL 7-21 (BEAKER) (test pugl=235) CREATININE (BEAKER) (test 1.90 mg/dL 0.57-1.25 zjvx=696) GLUCOSE RANDOM (BEAKER) 186 mg/dL 70-105 (test rgbk=680) CALCIUM (BEAKER) (test 9.2 mg/dL 8.4-10.2 zehm=094) EGFR (BEAKER) (test 34 mL/min/1.73 sq m ESTIMATED GFR IS NOT gblr=0785) ACCURATE CREATININE CLEARANCE IN PREDICTING GLOMERULAR FILTRATION RATE. ESTIMATED GFR IS NOT APPLICABLE FOR DIALYSIS PATIENTS. POCT-GLUCOSE [id number] 08:15:00 Test Item Value Reference Range Comments POC-GLUCOSE METER (BEAKER) 225 mg/dL 70-110 TESTED AT [facility] [address] [facility] (test jtib=8176) [facility] [address] CBC W/PLT COUNT & AUTO [id number] 08:02:00 Test Item Value Reference Range Comments WHITE BLOOD CELL COUNT (BEAKER) (test nvqa=243) 13.4 K/ L 3.5-10.5 RED BLOOD CELL COUNT (BEAKER) (test vshk=425) 3.10 M/ L 4.63-6.08 HEMOGLOBIN (BEAKER) (test irhx=617) 8.8 GM/DL 13.7-17.5 HEMATOCRIT (BEAKER) (test mrej=881) 27.7 % 40.1-51.0 MEAN CORPUSCULAR VOLUME (BEAKER) (test qfvy=271) 89.4 fL 79.0-92.2 MEAN CORPUSCULAR HEMOGLOBIN (BEAKER) (test 28.4 pg 25.7-32.2 zycu=350) MEAN CORPUSCULAR HEMOGLOBIN CONC (BEAKER) (test 31.8 GM/DL 32.3-36.5 cinx=937) RED CELL DISTRIBUTION WIDTH (BEAKER) (test 13.7 % 11.6-14.4 vpir=924) PLATELET COUNT (BEAKER) (test tfzv=512) 551 K/CU MM 150-450 MEAN PLATELET VOLUME (BEAKER) (test btni=027) 8.9 fL 9.4-12.4 NUCLEATED RED BLOOD CELLS (BEAKER) (test 0 /100 WBC 0-0 jrxr=345) NEUTROPHILS RELATIVE PERCENT (BEAKER) (test 69 % qcdd=741) LYMPHOCYTES RELATIVE PERCENT (BEAKER) (test 12 % ikiu=620) MONOCYTES RELATIVE PERCENT (BEAKER) (test 11 % vymm=498) EOSINOPHILS RELATIVE PERCENT (BEAKER) (test 6 % lhig=874) BASOPHILS RELATIVE PERCENT (BEAKER) (test 1 % qqcr=049) NEUTROPHILS ABSOLUTE COUNT (BEAKER) (test 9.32 K/ L 1.78-5.38 modl=591) LYMPHOCYTES ABSOLUTE COUNT (BEAKER) (test 1.57 K/ L 1.32-3.57 pmmc=199) MONOCYTES ABSOLUTE COUNT (BEAKER) (test 1.42 K/ L 0.30-0.82 xcms=684) EOSINOPHILS ABSOLUTE COUNT (BEAKER) (test 0.84 K/ L 0.04-0.54 zdzp=185) BASOPHILS ABSOLUTE COUNT (BEAKER) (test 0.09 K/ L 0.01-0.08 qfzz=922) IMMATURE GRANULOCYTES-RELATIVE PERCENT (BEAKER) 1 % 0-1 (test ryhk=2695) POCT-GLUCOSE [id number] 21:16:00 Test Item Value Reference Range Comments POC-GLUCOSE METER (BEAKER) 302 mg/dL 70-110 TESTED AT [address] (test xhch=3159) [place] [address] POCT-GLUCOSE [id number] 17:13:00 Test Item Value Reference Range Comments POC-GLUCOSE METER (BEAKER) 208 mg/dL 70-110 TESTED AT [address] (test egcf=6826) [place] [address] POCT-GLUCOSE [id number] 13:20:00 Test Item Value Reference Range Comments POC-GLUCOSE METER (BEAKER) 252 mg/dL 70-110 TESTED AT [address] (test laqz=6397) [place] [address] POCT-GLUCOSE [id number] 08:25:00 Test Item Value Reference Range Comments POC-GLUCOSE METER (BEAKER) 229 mg/dL 70-110 TESTED AT [address] (test kdyh=0638) [place] [address] BASIC METABOLIC [id number] 06:57:00 Test Item Value Reference Range Comments SODIUM (BEAKER) (test 131 meq/L 136-145 ggum=373) POTASSIUM (BEAKER) (test 4.4 meq/L 3.5-5.1 wwup=296) CHLORIDE (BEAKER) (test 102 meq/L 98-107 kwlx=704) CO2 (BEAKER) (test 19 meq/L 22-29 hglh=826) BLOOD UREA NITROGEN 43 mg/dL 7-21 (BEAKER) (test naqh=283) CREATININE (BEAKER) (test 2.24 mg/dL 0.57-1.25 rfnl=544) GLUCOSE RANDOM (BEAKER) 198 mg/dL 70-105 (test esat=798) CALCIUM (BEAKER) (test 8.7 mg/dL 8.4-10.2 gqyx=325) EGFR (BEAKER) (test 28 mL/min/1.73 sq m ESTIMATED GFR IS NOT qapv=8369) ACCURATE CREATININE CLEARANCE IN PREDICTING GLOMERULAR FILTRATION RATE. ESTIMATED GFR IS NOT APPLICABLE FOR DIALYSIS PATIENTS. [id number] 06:55:00 Test Item Value Reference Range Comments PHOSPHORUS (BEAKER) (test fzvh=865) 3.8 mg/dL 2.3-4.7 [id number] 06:55:00 Test Item Value Reference Range Comments MAGNESIUM (BEAKER) (test itco=877) 1.7 mg/dL 1.6-2.6 CBC W/PLT COUNT & AUTO [id number] 06:09:00 Test Item Value Reference Range Comments WHITE BLOOD CELL COUNT (BEAKER) (test iuag=699) 14.0 K/ L 3.5-10.5 RED BLOOD CELL COUNT (BEAKER) (test migk=333) 3.12 M/ L 4.63-6.08 HEMOGLOBIN (BEAKER) (test rwhu=267) 9.0 GM/DL 13.7-17.5 HEMATOCRIT (BEAKER) (test wfyh=921) 27.6 % 40.1-51.0 MEAN CORPUSCULAR VOLUME (BEAKER) (test hmgn=845) 88.5 fL 79.0-92.2 MEAN CORPUSCULAR HEMOGLOBIN (BEAKER) (test 28.8 pg 25.7-32.2 vaym=978) MEAN CORPUSCULAR HEMOGLOBIN CONC (BEAKER) (test 32.6 GM/DL 32.3-36.5 pcgy=656) RED CELL DISTRIBUTION WIDTH (BEAKER) (test 13.6 % 11.6-14.4 blbi=115) PLATELET COUNT (BEAKER) (test yuyk=502) 451 K/CU MM 150-450 MEAN PLATELET VOLUME (BEAKER) (test etad=517) 8.8 fL 9.4-12.4 NUCLEATED RED BLOOD CELLS (BEAKER) (test 0 /100 WBC 0-0 ohri=969) NEUTROPHILS RELATIVE PERCENT (BEAKER) (test 70 % fomi=704) LYMPHOCYTES RELATIVE PERCENT (BEAKER) (test 12 % qupz=243) MONOCYTES RELATIVE PERCENT (BEAKER) (test 10 % omco=803) EOSINOPHILS RELATIVE PERCENT (BEAKER) (test 6 % yemf=991) BASOPHILS RELATIVE PERCENT (BEAKER) (test 1 % cevp=594) NEUTROPHILS ABSOLUTE COUNT (BEAKER) (test 9.86 K/ L 1.78-5.38 tppm=256) LYMPHOCYTES ABSOLUTE COUNT (BEAKER) (test 1.63 K/ L 1.32-3.57 jnll=556) MONOCYTES ABSOLUTE COUNT (BEAKER) (test 1.40 K/ L 0.30-0.82 rmdf=158) EOSINOPHILS ABSOLUTE COUNT (BEAKER) (test 0.85 K/ L 0.04-0.54 qpkh=882) BASOPHILS ABSOLUTE COUNT (BEAKER) (test 0.08 K/ L 0.01-0.08 tvar=064) IMMATURE GRANULOCYTES-RELATIVE PERCENT (BEAKER) 1 % 0-1 (test ffxk=9743) POCT-GLUCOSE [id number] 17:30:00 Test Item Value Reference Range Comments POC-GLUCOSE METER (BEAKER) 149 mg/dL 70-110 TESTED AT [address] (test xhbp=7609) [facility] [address] POCT-GLUCOSE [id number] 12:10:00 Test Item Value Reference Range Comments POC-GLUCOSE METER (BEAKER) 245 mg/dL 70-110 TESTED AT [address] (test kvoe=7843) [facility] [address] CBC W/PLT COUNT & AUTO [id number] 10:30:00 Test Item Value Reference Range Comments WHITE BLOOD CELL COUNT (BEAKER) (test gygo=822) 12.6 K/ L 3.5-10.5 RED BLOOD CELL COUNT (BEAKER) (test rhec=888) 2.95 M/ L 4.63-6.08 HEMOGLOBIN (BEAKER) (test piib=292) 8.6 GM/DL 13.7-17.5 HEMATOCRIT (BEAKER) (test ktli=876) 26.3 % 40.1-51.0 MEAN CORPUSCULAR VOLUME (BEAKER) (test ndby=296) 89.2 fL 79.0-92.2 MEAN CORPUSCULAR HEMOGLOBIN (BEAKER) (test 29.2 pg 25.7-32.2 umoc=787) MEAN CORPUSCULAR HEMOGLOBIN CONC (BEAKER) (test 32.7 GM/DL 32.3-36.5 wcvy=176) RED CELL DISTRIBUTION WIDTH (BEAKER) (test 13.8 % 11.6-14.4 qftm=621) PLATELET COUNT (BEAKER) (test aker=488) 428 K/CU MM 150-450 MEAN PLATELET VOLUME (BEAKER) (test sqlq=696) 9.1 fL 9.4-12.4 NUCLEATED RED BLOOD CELLS (BEAKER) (test 0 /100 WBC 0-0 rhkq=322) (CELLAVISION MANUAL DIFF)2017-11-30 10:30:00 Test Item Value Reference Range Comments NEUTROPHILS - REL (CELLAVISION)(BEAKER) (test 83 % qxau=8621) LYMPHOCYTES - REL (CELLAVISION)(BEAKER) (test 8 % aaai=4460) MONOCYTES - REL (CELLAVISION)(BEAKER) (test 4 % wvqb=1364) EOSINOPHILS - REL (CELLAVISION)(BEAKER) (test 4 % jfut=6007) BASOPHILS - REL (CELLAVISION)(BEAKER) (test 1 % ozit=9780) NEUTROPHILS - ABS (CELLAVISION)(BEAKER) (test 10.46 K/ul 1.78-5.38 sguy=9551) LYMPHOCYTES - ABS (CELLAVISION)(BEAKER) (test 1.01 K/ul 1.32-3.57 scos=3032) MONOCYTES - ABS (CELLAVISION)(BEAKER) (test 0.50 K/uL 0.30-0.82 bvsj=0035) EOSINOPHILS - ABS (CELLAVISION)(BEAKER) (test 0.50 K/uL 0.04-0.54 nxmd=0642) BASOPHILS - ABS (CELLAVISION)(BEAKER) (test 0.13 K/uL 0.01-0.08 bsnk=9411) TOTAL COUNTED (BEAKER) (test smxw=4960) 100 MANUAL NRBC PER 100 CELLS (BEAKER) (test 1 /100 WBC 0-0 onie=3403) WBC MORPHOLOGY (BEAKER) (test arbm=407) Normal PLT MORPHOLOGY (BEAKER) (test ikzl=728) Normal ANISOCYTOSIS (BEAKER) (test gkda=745) 1+ few MICROCYTES (BEAKER) (test wsjk=405) 1+ few ARTIFACT (CELLAVISION)(BEAKER) (test fnvd=5559) Present PLATELET CONCENTRATION (CELLAVISION)(BEAKER) Adequate (test jrwi=3447) Received comment: User comments: Slide comments:POCT-GLUCOSE [id number] 08: 03:00 Test Item Value Reference Range Comments POC-GLUCOSE METER (BEAKER) 242 mg/dL 70-110 TESTED AT [facility] [address] [facility] (test izkn=2913) [facility] [address] [id number] 07:26:00 Test Item Value Reference Range Comments PHOSPHORUS (BEAKER) (test ztao=482) 3.6 mg/dL 2.3-4.7 [id number] 07:26:00 Test Item Value Reference Range Comments MAGNESIUM (BEAKER) (test gsou=516) 1.9 mg/dL 1.6-2.6 BASIC METABOLIC [id number] 07:26:00 Test Item Value Reference Range Comments SODIUM (BEAKER) (test 131 meq/L 136-145 iuas=012) POTASSIUM (BEAKER) (test 4.3 meq/L 3.5-5.1 jpzj=313) CHLORIDE (BEAKER) (test 102 meq/L 98-107 vaql=120) CO2 (BEAKER) (test 20 meq/L 22-29 rtcs=083) BLOOD UREA NITROGEN 44 mg/dL 7-21 (BEAKER) (test ctcr=427) CREATININE (BEAKER) (test 1.98 mg/dL 0.57-1.25 umtj=786) GLUCOSE RANDOM (BEAKER) 216 mg/dL 70-105 (test scur=940) CALCIUM (BEAKER) (test 8.8 mg/dL 8.4-10.2 zmlb=731) EGFR (BEAKER) (test 33 mL/min/1.73 sq m ESTIMATED GFR IS NOT wovq=8771) ACCURATE CREATININE CLEARANCE IN PREDICTING GLOMERULAR FILTRATION RATE. ESTIMATED GFR IS NOT APPLICABLE FOR DIALYSIS PATIENTS. POCT-GLUCOSE [id number] 21:03:00 Test Item Value Reference Range Comments POC-GLUCOSE METER (BEAKER) 414 mg/dL 70-110 TESTED AT [address] (test idbo=4449) [facility] [address] POCT-GLUCOSE [id number] 17:11:00 Test Item Value Reference Range Comments POC-GLUCOSE METER (BEAKER) 201 mg/dL 70-110 TESTED AT [address] (test mken=9402) [facility] [address] POCT-GLUCOSE [id number] 11:55:00 Test Item Value Reference Range Comments POC-GLUCOSE METER (BEAKER) 228 mg/dL 70-110 TESTED AT [address] (test rzes=5541) [facility] [address] CALCIUM, [id number] 08:13:00 Test Item Value Reference Range Comments CALCIUM IONIZED (BEAKER) (test wccw=264) 1.08 mmol/L 1.12-1.27 PH, BLOOD (BEAKER) (test fmzf=6214) 7.32 CBC W/PLT COUNT & AUTO [id number] 07:52:00 Test Item Value Reference Range Comments WHITE BLOOD CELL COUNT (BEAKER) (test rpoa=682) 12.8 K/ L 3.5-10.5 RED BLOOD CELL COUNT (BEAKER) (test tkny=424) 3.11 M/ L 4.63-6.08 HEMOGLOBIN (BEAKER) (test pfav=001) 9.0 GM/DL 13.7-17.5 HEMATOCRIT (BEAKER) (test hsyc=195) 28.0 % 40.1-51.0 MEAN CORPUSCULAR VOLUME (BEAKER) (test jwgx=979) 90.0 fL 79.0-92.2 MEAN CORPUSCULAR HEMOGLOBIN (BEAKER) (test 28.9 pg 25.7-32.2 egba=334) MEAN CORPUSCULAR HEMOGLOBIN CONC (BEAKER) (test 32.1 GM/DL 32.3-36.5 lnvq=172) RED CELL DISTRIBUTION WIDTH (BEAKER) (test 13.8 % 11.6-14.4 ebul=185) PLATELET COUNT (BEAKER) (test agty=381) 432 K/CU MM 150-450 MEAN PLATELET VOLUME (BEAKER) (test ipmp=290) 9.0 fL 9.4-12.4 NUCLEATED RED BLOOD CELLS (BEAKER) (test 0 /100 WBC 0-0 pmrx=639) NEUTROPHILS RELATIVE PERCENT (BEAKER) (test 71 % prqp=365) LYMPHOCYTES RELATIVE PERCENT (BEAKER) (test 10 % cuzi=759) MONOCYTES RELATIVE PERCENT (BEAKER) (test 11 % xkao=888) EOSINOPHILS RELATIVE PERCENT (BEAKER) (test 6 % lzct=487) BASOPHILS RELATIVE PERCENT (BEAKER) (test 1 % gutp=250) NEUTROPHILS ABSOLUTE COUNT (BEAKER) (test 9.05 K/ L 1.78-5.38 pjgk=515) LYMPHOCYTES ABSOLUTE COUNT (BEAKER) (test 1.33 K/ L 1.32-3.57 raqb=281) MONOCYTES ABSOLUTE COUNT (BEAKER) (test 1.42 K/ L 0.30-0.82 asud=204) EOSINOPHILS ABSOLUTE COUNT (BEAKER) (test 0.76 K/ L 0.04-0.54 kjcs=661) BASOPHILS ABSOLUTE COUNT (BEAKER) (test 0.07 K/ L 0.01-0.08 rzry=182) IMMATURE GRANULOCYTES-RELATIVE PERCENT (BEAKER) 1 % 0-1 (test mtav=1123) [id number] 07:49:00 Test Item Value Reference Range Comments PHOSPHORUS (BEAKER) (test ykdb=642) 3.9 mg/dL 2.3-4.7 [id number] 07:49:00 Test Item Value Reference Range Comments MAGNESIUM (BEAKER) (test ruop=869) 1.8 mg/dL 1.6-2.6 COMPREHENSIVE METABOLIC [id number] 07:49:00 Test Item Value Reference Range Comments TOTAL PROTEIN (BEAKER) 6.2 gm/dL 6.0-8.3 (test eont=295) ALBUMIN (BEAKER) (test 2.9 g/dL 3.5-5.0 wjwb=2595) ALKALINE PHOSPHATASE 314 U/L 40-150 (BEAKER) (test sgmq=444) BILIRUBIN TOTAL (BEAKER) 0.3 mg/dL 0.2-1.2 (test rgyr=862) SODIUM (BEAKER) (test 132 meq/L 136-145 dhfw=172) POTASSIUM (BEAKER) (test 4.2 meq/L 3.5-5.1 vsxf=555) CHLORIDE (BEAKER) (test 102 meq/L 98-107 guqt=873) CO2 (BEAKER) (test 19 meq/L 22-29 olss=854) BLOOD UREA NITROGEN 44 mg/dL 7-21 (BEAKER) (test pjao=515) CREATININE (BEAKER) (test 2.15 mg/dL 0.57-1.25 dnsq=170) GLUCOSE RANDOM (BEAKER) 219 mg/dL 70-105 (test lhrz=227) CALCIUM (BEAKER) (test 8.7 mg/dL 8.4-10.2 uowx=557) AST (SGOT) (BEAKER) (test 23 U/L 5-34 chja=083) ALT (SGPT) (BEAKER) (test 29 U/L 6-55 jywc=360) EGFR (BEAKER) (test 30 mL/min/1.73 sq m ESTIMATED GFR IS NOT chnw=1770) ACCURATE CREATININE CLEARANCE IN PREDICTING GLOMERULAR FILTRATION RATE. ESTIMATED GFR IS NOT APPLICABLE FOR DIALYSIS PATIENTS. POCT-GLUCOSE [id number] 07:34:00 Test Item Value Reference Range Comments POC-GLUCOSE METER (BEAKER) 251 mg/dL 70-110 TESTED AT [address] (test cogt=6532) [facility] [address] POCT-GLUCOSE [id number] 20:55:00 Test Item Value Reference Range Comments POC-GLUCOSE METER (BEAKER) 196 mg/dL 70-110 TESTED AT [address] (test ufrm=8117) [place] [id number] HEMOGLOBIN AND [id number] 17:55:00 Test Item Value Reference Range Comments HEMOGLOBIN (BEAKER) (test uwbl=129) 9.0 GM/DL 13.7-17.5 HEMATOCRIT (BEAKER) (test totd=558) 27.6 % 40.1-51.0 Call [id number] 13:46:00 Test Item Value Reference Range Comments POC-GLUCOSE METER (BEAKER) 245 mg/dL 70-110 TESTED AT [address] (test llww=9179) [place] [address] U/S, BIOPSY, RENAL (KIDNEY)2017-11-28 10:42:00Reason for exam:->BASSEM, nephrotic proteinuriaFINAL REPORT Ultrasound guided core biopsy of the left [place] kidney dated 11/28/2017 Procedure: Core biopsy of the left [place] kidney. Clinical Indication: Proteinuria Sedation: Moderate sedation [...] ultrasound guided core biopsy of the left [place] kidney was performed under usual sterile technique. Using an 18 gauge core biopsy needle, puncture was made posteriorly onthe left with real time ultrasound guidance. 2 passes were performed with sufficient material for histology. Patient tolerated procedure well. Complication: None Estimated Blood Loss: None The specimen was sent to pathology. Impression: Successful ultrasound -guided core biopsy of the left [place] kidney. Signed: Davon Diallo Verified Date/Time: 11/28/2017 10:42:49 Reading Location: [address] Ultrasound Reading Room Electronically signed by: DAVON DIALLO M.D. on 10/2017 10:42 AMPOCT-GLUCOSE [id number] 08:29:00 Test Item Value Reference Range Comments POC-GLUCOSE METER (BEAKER) 286 mg/dL 70-110 TESTED AT [address] (test ouun=6285) [place] [address] CBC W/PLT COUNT & AUTO [id number] 05:46:00 Test Item Value Reference Range Comments WHITE BLOOD CELL COUNT (BEAKER) (test ckvq=806) 11.4 K/ L 3.5-10.5 RED BLOOD CELL COUNT (BEAKER) (test stmd=164) 2.96 M/ L 4.63-6.08 HEMOGLOBIN (BEAKER) (test snyi=461) 8.8 GM/DL 13.7-17.5 HEMATOCRIT (BEAKER) (test kogb=322) 26.4 % 40.1-51.0 MEAN CORPUSCULAR VOLUME (BEAKER) (test qguh=684) 89.2 fL 79.0-92.2 MEAN CORPUSCULAR HEMOGLOBIN (BEAKER) (test 29.7 pg 25.7-32.2 quht=589) MEAN CORPUSCULAR HEMOGLOBIN CONC (BEAKER) (test 33.3 GM/DL 32.3-36.5 hngr=712) RED CELL DISTRIBUTION WIDTH (BEAKER) (test 13.7 % 11.6-14.4 jxdd=310) PLATELET COUNT (BEAKER) (test szha=739) 401 K/CU MM 150-450 MEAN PLATELET VOLUME (BEAKER) (test acgb=282) 9.0 fL 9.4-12.4 NUCLEATED RED BLOOD CELLS (BEAKER) (test 0 /100 WBC 0-0 frzr=482) NEUTROPHILS RELATIVE PERCENT (BEAKER) (test 67 % ekal=850) LYMPHOCYTES RELATIVE PERCENT (BEAKER) (test 11 % gfha=986) MONOCYTES RELATIVE PERCENT (BEAKER) (test 14 % lzok=294) EOSINOPHILS RELATIVE PERCENT (BEAKER) (test 7 % nvcz=670) BASOPHILS RELATIVE PERCENT (BEAKER) (test 1 % uqhm=305) NEUTROPHILS ABSOLUTE COUNT (BEAKER) (test 7.70 K/ L 1.78-5.38 sqtc=308) LYMPHOCYTES ABSOLUTE COUNT (BEAKER) (test 1.26 K/ L 1.32-3.57 wvmu=066) MONOCYTES ABSOLUTE COUNT (BEAKER) (test 1.55 K/ L 0.30-0.82 hmkh=114) EOSINOPHILS ABSOLUTE COUNT (BEAKER) (test 0.74 K/ L 0.04-0.54 xpzk=659) BASOPHILS ABSOLUTE COUNT (BEAKER) (test 0.06 K/ L 0.01-0.08 cobq=413) IMMATURE GRANULOCYTES-RELATIVE PERCENT (BEAKER) 1 % 0-1 (test kyng=2302) COMPREHENSIVE METABOLIC [id number] 05:41:00 Test Item Value Reference Range Comments TOTAL PROTEIN (BEAKER) 6.0 gm/dL 6.0-8.3 (test cqqi=604) ALBUMIN (BEAKER) (test 2.9 g/dL 3.5-5.0 xoqp=8600) ALKALINE PHOSPHATASE 346 U/L 40-150 (BEAKER) (test adrx=541) BILIRUBIN TOTAL (BEAKER) 0.2 mg/dL 0.2-1.2 (test xptt=955) SODIUM (BEAKER) (test 131 meq/L 136-145 redu=311) POTASSIUM (BEAKER) (test 3.9 meq/L 3.5-5.1 zrbf=234) CHLORIDE (BEAKER) (test 103 meq/L 98-107 pwgu=662) CO2 (BEAKER) (test 20 meq/L 22-29 kzrj=213) BLOOD UREA NITROGEN 44 mg/dL 7-21 (BEAKER) (test ewcd=742) CREATININE (BEAKER) (test 2.41 mg/dL 0.57-1.25 muua=299) GLUCOSE RANDOM (BEAKER) 288 mg/dL 70-105 (test qzqw=775) CALCIUM (BEAKER) (test 8.4 mg/dL 8.4-10.2 fjln=043) AST (SGOT) (BEAKER) (test 24 U/L 5-34 geqx=665) ALT (SGPT) (BEAKER) (test 29 U/L 6-55 suum=502) EGFR (BEAKER) (test 26 mL/min/1.73 sq m ESTIMATED GFR IS NOT wgea=3834) ACCURATE CREATININE CLEARANCE IN PREDICTING GLOMERULAR FILTRATION RATE. ESTIMATED GFR IS NOT APPLICABLE FOR DIALYSIS PATIENTS. [id number] 05:40:00 Test Item Value Reference Range Comments PHOSPHORUS (BEAKER) (test fytp=215) 3.9 mg/dL 2.3-4.7 [id number] 05:40:00 Test Item Value Reference Range Comments MAGNESIUM (BEAKER) (test qzgw=837) 1.6 mg/dL 1.6-2.6 CALCIUM, [id number] 05:30:00 Test Item Value Reference Range Comments CALCIUM IONIZED (BEAKER) (test lhkt=329) 1.05 mmol/L 1.12-1.27 PH, BLOOD (BEAKER) (test hwvj=8374) 7.36 POCT-GLUCOSE [id number] 21:53:00 Test Item Value Reference Range Comments POC-GLUCOSE METER (BEAKER) 346 mg/dL 70-110 Notified CHIQUITA COOMBS/TESTED AT [facility] (test wvqz=5533) [address] [facility] [address] POCT-GLUCOSE [id number] 17:08:00 Test Item Value Reference Range Comments POC-GLUCOSE METER (BEAKER) 365 mg/dL 70-110 Notified CHIQUITA COOMBS/TESTED AT [facility] (test qykp=0048) [address] [facility] [address] POCT-GLUCOSE [id number] 17:01:00 Test Item Value Reference Range Comments POC-GLUCOSE METER (BEAKER) 294 mg/dL 70-110 TESTED AT [facility] [address] [place] [address] (test wbsq=0640) [facility] [address] URINE IMMUNOFIXATION, 24 [id number] 10:11:00 Test Item Value Reference Range Comments VOLUME, TOTAL (BEAKER) (test 1700 ml qlpq=0811) PROTEIN, URINE (BEAKER) 176 mg/dL 0-14 (test uzip=7531) PROTEIN, 24HR URINE (BEAKER) 2992 mg/24hr 0-300 (test aoen=9453) ALBUMIN, 24HR URINE (BEAKER) 30.3 % (test gllh=6213) GLOBULIN, 24HR URINE 69.7 % (BEAKER) (test nzdj=2589) URINE MATEO ID (BEAKER) (test No monoclonal proteins or fbxd=7786) monoclonal free light chains detected. [id number] Mary Robledo MD (BEAKER) (test ahuy=1554) (electronic signature) RAD, CHEST, 1 VIEW, NON [id number] 08:40:00Reason for exam:->edemaShould this be performed at the bedside?->YesFINAL REPORT CLINICAL HISTORY: edema TECHNIQUE: 1 view of the chest. COMPARISON: 11/18/2017 IMPRESSION: The right central line remains in the SVC. Mild bilateral airspace opacities have decreased. Trace bilateral pleural effusions remain. The cardiomediastinal silhouette is magnified by technique. Signed: Loida Phillips MDReport Verified Date/Time: 11/27/2017 08:40:13 Reading Location: [facility] Radiology Reading Room Electronically signed by: LOIDA PHILLIPS M.D. 11/27/2017 08:40 AMPOCT-GLUCOSE [id number] 08:13:00 Test Item Value Reference Range Comments POC-GLUCOSE METER (BEAKER) 193 mg/dL 70-110 TESTED AT [facility] [address] [facility] (test iprb=2985) [facility] [address] COMPREHENSIVE METABOLIC [id number] 06:59:00 Test Item Value Reference Range Comments TOTAL PROTEIN (BEAKER) 5.9 gm/dL 6.0-8.3 (test yhgv=965) ALBUMIN (BEAKER) (test 2.8 g/dL 3.5-5.0 kzkq=2424) ALKALINE PHOSPHATASE 297 U/L 40-150 (BEAKER) (test wsai=134) BILIRUBIN TOTAL (BEAKER) 0.3 mg/dL 0.2-1.2 (test oecj=099) SODIUM (BEAKER) (test 132 meq/L 136-145 xkep=036) POTASSIUM (BEAKER) (test 3.7 meq/L 3.5-5.1 mqso=448) CHLORIDE (BEAKER) (test 103 meq/L 98-107 pixe=741) CO2 (BEAKER) (test 19 meq/L 22-29 jqip=555) BLOOD UREA NITROGEN 42 mg/dL 7-21 (BEAKER) (test udww=909) CREATININE (BEAKER) (test 2.33 mg/dL 0.57-1.25 iisl=562) GLUCOSE RANDOM (BEAKER) 168 mg/dL 70-105 (test hkox=579) CALCIUM (BEAKER) (test 8.3 mg/dL 8.4-10.2 zhjq=796) AST (SGOT) (BEAKER) (test 27 U/L 5-34 noie=972) ALT (SGPT) (BEAKER) (test 31 U/L 6-55 tbef=902) EGFR (BEAKER) (test 27 mL/min/1.73 sq m ESTIMATED GFR IS NOT bqbv=8384) ACCURATE CREATININE CLEARANCE IN PREDICTING GLOMERULAR FILTRATION RATE. ESTIMATED GFR IS NOT APPLICABLE FOR DIALYSIS PATIENTS. [id number] 06:57:00 Test Item Value Reference Range Comments PHOSPHORUS (BEAKER) (test fobt=769) 3.9 mg/dL 2.3-4.7 [id number] 06:57:00 Test Item Value Reference Range Comments MAGNESIUM (BEAKER) (test lcsh=398) 1.6 mg/dL 1.6-2.6 CALCIUM, [id number] 06:56:00 Test Item Value Reference Range Comments CALCIUM IONIZED (BEAKER) (test agnn=923) 1.02 mmol/L 1.12-1.27 PH, BLOOD (BEAKER) (test dbhz=2066) 7.37 B-TYPE NATRIURETIC FACTOR (BNP)2017-11-27 06:43:00 Test Item Value Reference Range Comments B-TYPE NATRIURETIC PEPTIDE (BEAKER) (test 109 pg/mL 0-100 dnqp=361) CBC W/PLT COUNT & AUTO [id number] 06:32:00 Test Item Value Reference Range Comments WHITE BLOOD CELL COUNT (BEAKER) (test mewg=109) 11.0 K/ L 3.5-10.5 RED BLOOD CELL COUNT (BEAKER) (test gyld=332) 2.91 M/ L 4.63-6.08 HEMOGLOBIN (BEAKER) (test sbvr=901) 8.5 GM/DL 13.7-17.5 HEMATOCRIT (BEAKER) (test rjfp=548) 25.7 % 40.1-51.0 MEAN CORPUSCULAR VOLUME (BEAKER) (test brjr=139) 88.3 fL 79.0-92.2 MEAN CORPUSCULAR HEMOGLOBIN (BEAKER) (test 29.2 pg 25.7-32.2 vlco=546) MEAN CORPUSCULAR HEMOGLOBIN CONC (BEAKER) (test 33.1 GM/DL 32.3-36.5 gmdr=350) RED CELL DISTRIBUTION WIDTH (BEAKER) (test 13.6 % 11.6-14.4 svun=033) PLATELET COUNT (BEAKER) (test ezba=946) 337 K/CU MM 150-450 MEAN PLATELET VOLUME (BEAKER) (test pwpc=854) 9.1 fL 9.4-12.4 NUCLEATED RED BLOOD CELLS (BEAKER) (test 0 /100 WBC 0-0 yvta=974) NEUTROPHILS RELATIVE PERCENT (BEAKER) (test 66 % fojx=390) LYMPHOCYTES RELATIVE PERCENT (BEAKER) (test 11 % lzfd=583) MONOCYTES RELATIVE PERCENT (BEAKER) (test 13 % czca=151) EOSINOPHILS RELATIVE PERCENT (BEAKER) (test 8 % rioy=461) BASOPHILS RELATIVE PERCENT (BEAKER) (test 1 % xmuh=682) NEUTROPHILS ABSOLUTE COUNT (BEAKER) (test 7.21 K/ L 1.78-5.38 ixop=539) LYMPHOCYTES ABSOLUTE COUNT (BEAKER) (test 1.23 K/ L 1.32-3.57 dqvd=215) MONOCYTES ABSOLUTE COUNT (BEAKER) (test 1.43 K/ L 0.30-0.82 xqpa=865) EOSINOPHILS ABSOLUTE COUNT (BEAKER) (test 0.89 K/ L 0.04-0.54 tknf=121) BASOPHILS ABSOLUTE COUNT (BEAKER) (test 0.07 K/ L 0.01-0.08 ebpw=968) IMMATURE GRANULOCYTES-RELATIVE PERCENT (BEAKER) 2 % 0-1 (test twkh=8116) POCT-GLUCOSE [id number] 21:34:00 Test Item Value Reference Range Comments POC-GLUCOSE METER (BEAKER) 244 mg/dL 70-110 TESTED AT [address] (test iofo=9772) [place] [address] POCT-GLUCOSE [id number] 17:02:00 Test Item Value Reference Range Comments POC-GLUCOSE METER (BEAKER) 192 mg/dL 70-110 TESTED AT [address] (test pyjp=8385) [place] [id number] POCT-GLUCOSE [id number] 11:45:00 Test Item Value Reference Range Comments POC-GLUCOSE METER (BEAKER) 219 mg/dL 70-110 TESTED AT [address] (test bozr=7670) [place] [address] COMPREHENSIVE METABOLIC [id number] 08:04:00 Test Item Value Reference Range Comments TOTAL PROTEIN (BEAKER) 6.0 gm/dL 6.0-8.3 (test qsdu=890) ALBUMIN (BEAKER) (test 2.8 g/dL 3.5-5.0 fzwj=2249) ALKALINE PHOSPHATASE 334 U/L 40-150 (BEAKER) (test agbw=427) BILIRUBIN TOTAL (BEAKER) 0.3 mg/dL 0.2-1.2 (test ruju=921) SODIUM (BEAKER) (test 128 meq/L 136-145 velp=546) POTASSIUM (BEAKER) (test 3.8 meq/L 3.5-5.1 smhg=397) CHLORIDE (BEAKER) (test 99 meq/L 98-107 axlb=031) CO2 (BEAKER) (test 19 meq/L 22-29 dctn=230) BLOOD UREA NITROGEN 43 mg/dL 7-21 (BEAKER) (test itcg=626) CREATININE (BEAKER) (test 2.60 mg/dL 0.57-1.25 khlw=885) GLUCOSE RANDOM (BEAKER) 214 mg/dL 70-105 (test czcz=492) CALCIUM (BEAKER) (test 8.1 mg/dL 8.4-10.2 yctr=298) AST (SGOT) (BEAKER) (test 34 U/L 5-34 cedd=010) ALT (SGPT) (BEAKER) (test 38 U/L 6-55 tljw=443) EGFR (BEAKER) (test 24 mL/min/1.73 sq m ESTIMATED GFR IS NOT tlmq=6724) ACCURATE CREATININE CLEARANCE IN PREDICTING GLOMERULAR FILTRATION RATE. ESTIMATED GFR IS NOT APPLICABLE FOR DIALYSIS PATIENTS. [id number] 07:58:00 Test Item Value Reference Range Comments PHOSPHORUS (BEAKER) (test unrk=436) 3.5 mg/dL 2.3-4.7 [id number] 07:58:00 Test Item Value Reference Range Comments MAGNESIUM (BEAKER) (test dpzw=953) 1.5 mg/dL 1.6-2.6 POCT-GLUCOSE [id number] 07:46:00 Test Item Value Reference Range Comments POC-GLUCOSE METER (BEAKER) 239 mg/dL 70-110 TESTED AT [facility] [address] [facility] (test rwoh=8144) [facility] [address] CALCIUM, [id number] 07:07:00 Test Item Value Reference Range Comments CALCIUM IONIZED (BEAKER) (test bhvi=001) 0.99 mmol/L 1.12-1.27 PH, BLOOD (BEAKER) (test gitt=3886) 7.36 PROTHROMBIN [id number] 06:47:00 Test Item Value Reference Range Comments PROTIME (BEAKER) (test ntyb=532) 15.1 seconds 11.7-14.7 INR (BEAKER) (test akqm=125) 1.2 <=5.9 RECOMMENDED COUMADIN/WARFARIN INR THERAPY RANGESSTANDARD DOSE: 2.0 - 3.0 Includes: PROPHYLAXIS forvenous thrombosis, systemic embolization; TREATMENT for venous thrombosis and/or pulmonary embolus.HIGH RISK: Target INR is 2.5-3.5 for patients with mechanical heart valves.CBC W/PLT COUNT & AUTO [id number] 06:46:00 Test Item Value Reference Range Comments WHITE BLOOD CELL COUNT (BEAKER) (test iwjy=018) 11.4 K/ L 3.5-10.5 RED BLOOD CELL COUNT (BEAKER) (test tmdm=677) 3.00 M/ L 4.63-6.08 HEMOGLOBIN (BEAKER) (test mdze=430) 8.6 GM/DL 13.7-17.5 HEMATOCRIT (BEAKER) (test rlhy=198) 26.6 % 40.1-51.0 MEAN CORPUSCULAR VOLUME (BEAKER) (test ijmj=767) 88.7 fL 79.0-92.2 MEAN CORPUSCULAR HEMOGLOBIN (BEAKER) (test 28.7 pg 25.7-32.2 lfjk=918) MEAN CORPUSCULAR HEMOGLOBIN CONC (BEAKER) (test 32.3 GM/DL 32.3-36.5 vneq=114) RED CELL DISTRIBUTION WIDTH (BEAKER) (test 13.6 % 11.6-14.4 dqxj=832) PLATELET COUNT (BEAKER) (test rqbd=735) 337 K/CU MM 150-450 MEAN PLATELET VOLUME (BEAKER) (test pusx=141) 9.3 fL 9.4-12.4 NUCLEATED RED BLOOD CELLS (BEAKER) (test 0 /100 WBC 0-0 tkcu=422) NEUTROPHILS RELATIVE PERCENT (BEAKER) (test 65 % sznn=038) LYMPHOCYTES RELATIVE PERCENT (BEAKER) (test 12 % tesv=985) MONOCYTES RELATIVE PERCENT (BEAKER) (test 12 % pfwz=956) EOSINOPHILS RELATIVE PERCENT (BEAKER) (test 9 % hlgg=878) BASOPHILS RELATIVE PERCENT (BEAKER) (test 0 % syho=290) NEUTROPHILS ABSOLUTE COUNT (BEAKER) (test 7.45 K/ L 1.78-5.38 ygef=756) LYMPHOCYTES ABSOLUTE COUNT (BEAKER) (test 1.38 K/ L 1.32-3.57 zvoq=762) MONOCYTES ABSOLUTE COUNT (BEAKER) (test 1.41 K/ L 0.30-0.82 wwmv=811) EOSINOPHILS ABSOLUTE COUNT (BEAKER) (test 0.99 K/ L 0.04-0.54 pdvl=511) BASOPHILS ABSOLUTE COUNT (BEAKER) (test 0.05 K/ L 0.01-0.08 mphj=174) IMMATURE GRANULOCYTES-RELATIVE PERCENT (BEAKER) 1 % 0-1 (test rubx=5922) POCT-GLUCOSE [id number] 20:40:00 Test Item Value Reference Range Comments POC-GLUCOSE METER (BEAKER) 311 mg/dL 70-110 TESTED AT [address] (test yrds=6865) [place] [address] RAPID DRUG SCREEN, [id number] 19:24:00 Test Item Value Reference Range Comments BARBITURATE URINE (BEAKER) (test pvby=962) Negative Negative BENZODIAZEPINE SCREEN URINE (BEAKER) (test Negative Negative koma=438) COCAINE (METAB.) SCREEN (BEAKER) (test owwy=7429) Negative Negative METHADONE SCREEN (BEAKER) (test cdoo=8406) Negative Negative OPIATE SCREEN URINE (BEAKER) (test ekcp=621) Negative Negative CANNABINOID SCREEN URINE (BEAKER) (test pczr=682) Negative Negative AMPH/METHAMPH SCREEN (BEAKER) (test pgpw=3152) Negative Negative PHENCYCLIDINE SCREEN URINE (BEAKER) (test reno=760) Negative Negative OXYCODONE SCREEN URINE (BEAKER) (test ibse=7927) Negative Negative DRUG CUTOFF CONC.Cocaine 300 ng/mL Cannabinoid 50 ng/mL Benzodiazepine 200 ng/mLBarbiturate 200 ng/ mLPhencyclidine 25 ng/mLOpiate 300 ng/mLMethadone 300 ng/mLAmphetamine/ 1000 ng/mL MethamphetamineOxycodone 300 ng/mLThis assay provides an unconfirmed qualitative test result for the clinical management of patients in emergency situations. Chain of custody not maintained. Some hpfo-zsd-newqflj medications, as well as adulterants, may cause inaccurate results. Clinical correlation should be applied. A more comprehensive drug screen or confirmation of a detected drug may be performed upon request.POCT-GLUCOSE [id number] 17:47:00 Test Item Value Reference Range Comments POC-GLUCOSE METER (BEAKER) 241 mg/dL 70-110 TESTED AT [address] (test etwt=5407) [place] [id number] CBC W/PLT COUNT & AUTO [id number] 12:01:00 Test Item Value Reference Range Comments WHITE BLOOD CELL COUNT (BEAKER) (test jgfo=708) 10.3 K/ L 3.5-10.5 RED BLOOD CELL COUNT (BEAKER) (test hkip=723) 3.04 M/ L 4.63-6.08 HEMOGLOBIN (BEAKER) (test eoiw=537) 8.7 GM/DL 13.7-17.5 HEMATOCRIT (BEAKER) (test pwqv=433) 27.2 % 40.1-51.0 MEAN CORPUSCULAR VOLUME (BEAKER) (test nbwy=275) 89.5 fL 79.0-92.2 MEAN CORPUSCULAR HEMOGLOBIN (BEAKER) (test 28.6 pg 25.7-32.2 ddlv=974) MEAN CORPUSCULAR HEMOGLOBIN CONC (BEAKER) (test 32.0 GM/DL 32.3-36.5 styf=384) RED CELL DISTRIBUTION WIDTH (BEAKER) (test 13.6 % 11.6-14.4 rshw=724) PLATELET COUNT (BEAKER) (test bhcu=329) 315 K/CU MM 150-450 MEAN PLATELET VOLUME (BEAKER) (test tdmk=536) 9.2 fL 9.4-12.4 NUCLEATED RED BLOOD CELLS (BEAKER) (test 0 /100 WBC 0-0 xirg=553) (CELLAVISION MANUAL DIFF)2017-11-25 12:01:00 Test Item Value Reference Range Comments NEUTROPHILS - REL (CELLAVISION)(BEAKER) (test 75 % sifc=2794) LYMPHOCYTES - REL (CELLAVISION)(BEAKER) (test 9 % ktnu=7344) MONOCYTES - REL (CELLAVISION)(BEAKER) (test 9 % tbbt=3089) EOSINOPHILS - REL (CELLAVISION)(BEAKER) (test 6 % xbqy=6581) BASOPHILS - REL (CELLAVISION)(BEAKER) (test 1 % enwt=1580) NEUTROPHILS - ABS (CELLAVISION)(BEAKER) (test 7.73 K/ul 1.78-5.38 semb=8943) LYMPHOCYTES - ABS (CELLAVISION)(BEAKER) (test 0.93 K/ul 1.32-3.57 eblr=1508) MONOCYTES - ABS (CELLAVISION)(BEAKER) (test 0.93 K/uL 0.30-0.82 stlh=4672) EOSINOPHILS - ABS (CELLAVISION)(BEAKER) (test 0.62 K/uL 0.04-0.54 uozu=3375) BASOPHILS - ABS (CELLAVISION)(BEAKER) (test 0.10 K/uL 0.01-0.08 xhgr=9000) TOTAL COUNTED (BEAKER) (test iebe=1012) 100 RBC MORPHOLOGY (BEAKER) (test zvjk=529) Normal WBC MORPHOLOGY (BEAKER) (test nuok=183) Normal PLT MORPHOLOGY (BEAKER) (test msev=847) Normal ARTIFACT (CELLAVISION)(BEAKER) (test qlwx=2360) Present PLATELET CONCENTRATION (CELLAVISION)(BEAKER) (test Adequate izwf=8447) Received comment: User comments: Slide comments:POCT-GLUCOSE [id number] 11: 34:00 Test Item Value Reference Range Comments POC-GLUCOSE METER (BEAKER) 295 mg/dL 70-110 TESTED AT [address] (test icbr=1309) [facility] [address] POCT-GLUCOSE [id number] 07:38:00 Test Item Value Reference Range Comments POC-GLUCOSE METER (BEAKER) 188 mg/dL 70-110 TESTED AT [address] (test ihrj=2240) [facility] [address] CALCIUM, [id number] 06:26:00 Test Item Value Reference Range Comments CALCIUM IONIZED (BEAKER) (test myqe=805) 1.00 mmol/L 1.12-1.27 PH, BLOOD (BEAKER) (test agnm=3057) 7.35 COMPREHENSIVE METABOLIC [id number] 06:13:00 Test Item Value Reference Range Comments TOTAL PROTEIN (BEAKER) 6.0 gm/dL 6.0-8.3 (test oajm=288) ALBUMIN (BEAKER) (test 2.9 g/dL 3.5-5.0 wafz=2762) ALKALINE PHOSPHATASE 336 U/L 40-150 (BEAKER) (test sqkm=999) BILIRUBIN TOTAL (BEAKER) 0.3 mg/dL 0.2-1.2 (test fjto=915) SODIUM (BEAKER) (test 129 meq/L 136-145 crpk=386) POTASSIUM (BEAKER) (test 3.4 meq/L 3.5-5.1 solc=550) CHLORIDE (BEAKER) (test 101 meq/L 98-107 endd=353) CO2 (BEAKER) (test 19 meq/L 22-29 bhxz=720) BLOOD UREA NITROGEN 43 mg/dL 7-21 (BEAKER) (test fipy=920) CREATININE (BEAKER) (test 2.84 mg/dL 0.57-1.25 ncvy=605) GLUCOSE RANDOM (BEAKER) 205 mg/dL 70-105 (test nnhq=261) CALCIUM (BEAKER) (test 8.1 mg/dL 8.4-10.2 expl=120) AST (SGOT) (BEAKER) (test 37 U/L 5-34 oopd=176) ALT (SGPT) (BEAKER) (test 37 U/L 6-55 tloq=768) EGFR (BEAKER) (test 21 mL/min/1.73 sq m ESTIMATED GFR IS NOT tzij=0166) ACCURATE CREATININE CLEARANCE IN PREDICTING GLOMERULAR FILTRATION RATE. ESTIMATED GFR IS NOT APPLICABLE FOR DIALYSIS PATIENTS. [id number] 06:12:00 Test Item Value Reference Range Comments PHOSPHORUS (BEAKER) (test efze=457) 3.6 mg/dL 2.3-4.7 [id number] 06:12:00 Test Item Value Reference Range Comments MAGNESIUM (BEAKER) (test wjpj=392) 1.6 mg/dL 1.6-2.6 PROTHROMBIN [id number] 05:33:00 Test Item Value Reference Range Comments PROTIME (BEAKER) (test kpeq=212) 14.0 seconds 11.7-14.7 INR (BEAKER) (test tbae=883) 1.1 <=5.9 RECOMMENDED COUMADIN/WARFARIN INR THERAPY RANGESSTANDARD DOSE: 2.0 - 3.0 Includes: PROPHYLAXIS forvenous thrombosis, systemic embolization; TREATMENT for venous thrombosis and/or pulmonary embolus.HIGH RISK: Target INR is 2.5-3.5 for patients with mechanical heart valves.POCT-GLUCOSE [id number] 17:32:00 Test Item Value Reference Range Comments POC-GLUCOSE METER (BEAKER) 144 mg/dL 70-110 TESTED AT [address] (test jmag=3790) [facility] [address] URINE PROTEIN ELECTROPHORESIS, 24 [id number] 14:15:00 Test Item Value Reference Range Comments PROTEIN, 24HR URINE (BEAKER) 2992 mg/24hr 0-300 (test eypi=1730) VOLUME, TOTAL (BEAKER) (test 1700 ml coyr=5674) ALBUMIN, 24HR URINE (BEAKER) 30.3 % (test eepp=3343) GLOBULIN, 24HR URINE 69.7 % (BEAKER) (test loxf=4362) UPEP, ID (BEAKER) (test Spillage of large amounts of osvc=1653) globulin fractions may mask underlying monoclonal proteins; urine MATEO ordered and results pending. PROTEIN, URINE (BEAKER) 176 mg/dL 0-14 (test osqi=4802) [facility] PATHOLOGIST-2204 Mary Robledo MD (BEAKER) (test rtzf=0929) (electronic signature) POCT-GLUCOSE [id number] 12:04:00 Test Item Value Reference Range Comments POC-GLUCOSE METER (BEAKER) 155 mg/dL 70-110 TESTED AT [address] (test xoto=4378) [facility] [address] CBC W/PLT COUNT & AUTO [id number] 08:49:00 Test Item Value Reference Range Comments WHITE BLOOD CELL COUNT (BEAKER) (test hzqt=385) 10.9 K/ L 3.5-10.5 RED BLOOD CELL COUNT (BEAKER) (test mcnz=599) 2.96 M/ L 4.63-6.08 HEMOGLOBIN (BEAKER) (test gzbg=126) 8.6 GM/DL 13.7-17.5 HEMATOCRIT (BEAKER) (test ivlk=581) 26.2 % 40.1-51.0 MEAN CORPUSCULAR VOLUME (BEAKER) (test yiym=061) 88.5 fL 79.0-92.2 MEAN CORPUSCULAR HEMOGLOBIN (BEAKER) (test 29.1 pg 25.7-32.2 duth=381) MEAN CORPUSCULAR HEMOGLOBIN CONC (BEAKER) (test 32.8 GM/DL 32.3-36.5 yvvi=029) RED CELL DISTRIBUTION WIDTH (BEAKER) (test 13.5 % 11.6-14.4 qmja=149) PLATELET COUNT (BEAKER) (test ffrd=887) 298 K/CU MM 150-450 MEAN PLATELET VOLUME (BEAKER) (test rjdn=150) 9.2 fL 9.4-12.4 NUCLEATED RED BLOOD CELLS (BEAKER) (test 0 /100 WBC 0-0 mzmt=926) (CELLAVISION MANUAL DIFF)2017-11-24 08:49:00 Test Item Value Reference Range Comments NEUTROPHILS - REL (CELLAVISION)(BEAKER) (test 78 % kmxe=3474) LYMPHOCYTES - REL (CELLAVISION)(BEAKER) (test 7 % aqqq=3174) MONOCYTES - REL (CELLAVISION)(BEAKER) (test 11 % kwmm=0883) EOSINOPHILS - REL (CELLAVISION)(BEAKER) (test 4 % iwyc=6500) NEUTROPHILS - ABS (CELLAVISION)(BEAKER) (test 8.50 K/ul 1.78-5.38 wjbi=2521) LYMPHOCYTES - ABS (CELLAVISION)(BEAKER) (test 0.76 K/ul 1.32-3.57 gibb=8476) MONOCYTES - ABS (CELLAVISION)(BEAKER) (test 1.20 K/uL 0.30-0.82 tupm=9241) EOSINOPHILS - ABS (CELLAVISION)(BEAKER) (test 0.44 K/uL 0.04-0.54 gwxs=9151) TOTAL COUNTED (BEAKER) (test fljw=0335) 100 RBC MORPHOLOGY (BEAKER) (test betz=765) Normal WBC MORPHOLOGY (BEAKER) (test wwvu=112) Normal PLT MORPHOLOGY (BEAKER) (test bdzj=524) Normal ARTIFACT (CELLAVISION)(BEAKER) (test rhva=9566) Present PLATELET CONCENTRATION (CELLAVISION)(BEAKER) (test Adequate gzfd=4332) Received comment: User comments: Slide comments:POCT-GLUCOSE [id number] 08: 16:00 Test Item Value Reference Range Comments POC-GLUCOSE METER (BEAKER) 166 mg/dL 70-110 TESTED AT [facility] [address] [facility] (test yjfu=3522) [facility] [address] CALCIUM, [id number] 06:10:00 Test Item Value Reference Range Comments CALCIUM IONIZED (BEAKER) (test qldw=630) 0.98 mmol/L 1.12-1.27 PH, BLOOD (BEAKER) (test ucji=6500) 7.40 BASIC METABOLIC [id number] 05:06:00 Test Item Value Reference Range Comments SODIUM (BEAKER) (test 131 meq/L 136-145 lamz=915) POTASSIUM (BEAKER) (test 3.6 meq/L 3.5-5.1 sbfz=560) CHLORIDE (BEAKER) (test 100 meq/L 98-107 iiuz=324) CO2 (BEAKER) (test 21 meq/L 22-29 rpod=124) BLOOD UREA NITROGEN 39 mg/dL 7-21 (BEAKER) (test nkiz=016) CREATININE (BEAKER) (test 2.74 mg/dL 0.57-1.25 zpbc=325) GLUCOSE RANDOM (BEAKER) 158 mg/dL 70-105 (test fcrp=894) CALCIUM (BEAKER) (test 8.1 mg/dL 8.4-10.2 vday=422) EGFR (BEAKER) (test 22 mL/min/1.73 sq m ESTIMATED GFR IS NOT ldqz=5848) ACCURATE CREATININE CLEARANCE IN PREDICTING GLOMERULAR FILTRATION RATE. ESTIMATED GFR IS NOT APPLICABLE FOR DIALYSIS PATIENTS. [id number] 05:03:00 Test Item Value Reference Range Comments PHOSPHORUS (BEAKER) (test wunt=044) 3.4 mg/dL 2.3-4.7 [id number] 05:03:00 Test Item Value Reference Range Comments MAGNESIUM (BEAKER) (test sdkr=928) 1.6 mg/dL 1.6-2.6 POCT-GLUCOSE [id number] 21:25:00 Test Item Value Reference Range Comments POC-GLUCOSE METER (BEAKER) 252 mg/dL 70-110 TESTED AT [address] (test rvze=5009) [facility] [address] POCT-GLUCOSE [id number] 17:44:00 Test Item Value Reference Range Comments POC-GLUCOSE METER (BEAKER) 127 mg/dL 70-110 TESTED AT [address] (test fsow=9497) [facility] [address] POCT-GLUCOSE [id number] 11:31:00 Test Item Value Reference Range Comments POC-GLUCOSE METER (BEAKER) 221 mg/dL 70-110 TESTED AT [facility] [address] [facility] (test uhgb=4870) [facility] [address] BLOOD [id number] 11:00:00 Test Item Value Reference Range Comments CULTURE (BEAKER) (test mgjj=7165) No growth in 5 days POCT-GLUCOSE [id number] 08:08:00 Test Item Value Reference Range Comments POC-GLUCOSE METER (BEAKER) 118 mg/dL 70-110 TESTED AT [address] (test gutd=8242) [facility] [address] COMPREHENSIVE METABOLIC [id number] 06:57:00 Test Item Value Reference Range Comments TOTAL PROTEIN (BEAKER) 5.9 gm/dL 6.0-8.3 (test kcvz=504) ALBUMIN (BEAKER) (test 2.9 g/dL 3.5-5.0 knav=2688) ALKALINE PHOSPHATASE 276 U/L 40-150 (BEAKER) (test kmak=747) BILIRUBIN TOTAL (BEAKER) 0.5 mg/dL 0.2-1.2 (test uhzw=239) SODIUM (BEAKER) (test 130 meq/L 136-145 iwvd=623) POTASSIUM (BEAKER) (test 3.9 meq/L 3.5-5.1 pdhh=037) CHLORIDE (BEAKER) (test 99 meq/L 98-107 rqvz=585) CO2 (BEAKER) (test 20 meq/L 22-29 tvqi=943) BLOOD UREA NITROGEN 35 mg/dL 7-21 (BEAKER) (test ykut=844) CREATININE (BEAKER) (test 2.39 mg/dL 0.57-1.25 ccoy=029) GLUCOSE RANDOM (BEAKER) 116 mg/dL 70-105 (test eaxu=595) CALCIUM (BEAKER) (test 8.0 mg/dL 8.4-10.2 soyc=593) AST (SGOT) (BEAKER) (test 36 U/L 5-34 rswr=488) ALT (SGPT) (BEAKER) (test 28 U/L 6-55 evbv=608) EGFR (BEAKER) (test 26 mL/min/1.73 sq m ESTIMATED GFR IS NOT mrew=5522) ACCURATE CREATININE CLEARANCE IN PREDICTING GLOMERULAR FILTRATION RATE. ESTIMATED GFR IS NOT APPLICABLE FOR DIALYSIS PATIENTS. [id number] 05:44:00 Test Item Value Reference Range Comments PHOSPHORUS (BEAKER) (test nhes=195) 3.2 mg/dL 2.3-4.7 [id number] 05:44:00 Test Item Value Reference Range Comments MAGNESIUM (BEAKER) (test pmyn=945) 1.7 mg/dL 1.6-2.6 PROTHROMBIN [id number] 04:53:00 Test Item Value Reference Range Comments PROTIME (BEAKER) (test juwl=581) 15.5 seconds 11.7-14.7 INR (BEAKER) (test ryut=035) 1.2 <=5.9 RECOMMENDED COUMADIN/WARFARIN INR THERAPY RANGESSTANDARD DOSE: 2.0 - 3.0 Includes: PROPHYLAXIS forvenous thrombosis, systemic embolization; TREATMENT for venous thrombosis and/or pulmonary embolus.HIGH RISK: Target INR is 2.5-3.5 for patients with mechanical heart valves.CBC W/PLT COUNT & AUTO [id number] 04:43:00 Test Item Value Reference Range Comments WHITE BLOOD CELL COUNT (BEAKER) (test qwkk=001) 11.2 K/ L 3.5-10.5 RED BLOOD CELL COUNT (BEAKER) (test vuby=588) 3.22 M/ L 4.63-6.08 HEMOGLOBIN (BEAKER) (test etpv=311) 9.2 GM/DL 13.7-17.5 HEMATOCRIT (BEAKER) (test hdvt=148) 28.9 % 40.1-51.0 MEAN CORPUSCULAR VOLUME (BEAKER) (test zvol=053) 89.8 fL 79.0-92.2 MEAN CORPUSCULAR HEMOGLOBIN (BEAKER) (test 28.6 pg 25.7-32.2 apku=023) MEAN CORPUSCULAR HEMOGLOBIN CONC (BEAKER) (test 31.8 GM/DL 32.3-36.5 ddsr=216) RED CELL DISTRIBUTION WIDTH (BEAKER) (test 13.3 % 11.6-14.4 hnqe=974) PLATELET COUNT (BEAKER) (test kmav=065) 327 K/CU MM 150-450 MEAN PLATELET VOLUME (BEAKER) (test yjhi=569) 9.4 fL 9.4-12.4 NUCLEATED RED BLOOD CELLS (BEAKER) (test 0 /100 WBC 0-0 tbyx=126) NEUTROPHILS RELATIVE PERCENT (BEAKER) (test 68 % vwlx=082) LYMPHOCYTES RELATIVE PERCENT (BEAKER) (test 11 % qard=017) MONOCYTES RELATIVE PERCENT (BEAKER) (test 13 % zgxz=622) EOSINOPHILS RELATIVE PERCENT (BEAKER) (test 7 % eamc=937) BASOPHILS RELATIVE PERCENT (BEAKER) (test 0 % angj=823) NEUTROPHILS ABSOLUTE COUNT (BEAKER) (test 7.59 K/ L 1.78-5.38 ysrh=813) LYMPHOCYTES ABSOLUTE COUNT (BEAKER) (test 1.23 K/ L 1.32-3.57 kgev=248) MONOCYTES ABSOLUTE COUNT (BEAKER) (test 1.49 K/ L 0.30-0.82 nszj=185) EOSINOPHILS ABSOLUTE COUNT (BEAKER) (test 0.78 K/ L 0.04-0.54 btjs=420) BASOPHILS ABSOLUTE COUNT (BEAKER) (test 0.04 K/ L 0.01-0.08 snwc=052) IMMATURE GRANULOCYTES-RELATIVE PERCENT (BEAKER) 0 % 0-1 (test rsnc=4625) CALCIUM, [id number] 04:27:00 Test Item Value Reference Range Comments CALCIUM IONIZED (BEAKER) (test lqxm=219) 0.97 mmol/L 1.12-1.27 PH, BLOOD (BEAKER) (test itmf=0846) 7.42 PROTEIN, 24 HOUR [id number] 02:50:00 Test Item Value Reference Range Comments PROTEIN, 24HR URINE (BEAKER) (test jipw=5860) 2992 mg/24hr 0-300 VOLUME, TOTAL (BEAKER) (test ubpw=5264) 1700 ml PROTEIN, URINE (BEAKER) (test ujgw=9904) 176 mg/dL 0-14 POCT-GLUCOSE [id number] 21:39:00 Test Item Value Reference Range Comments POC-GLUCOSE METER (BEAKER) 194 mg/dL 70-110 TESTED AT [address] (test xotz=3546) [place] [id number] POCT-GLUCOSE [id number] 17:08:00 Test Item Value Reference Range Comments POC-GLUCOSE METER (BEAKER) 183 mg/dL 70-110 TESTED AT [address] (test ovxq=1151) [place] [address] POCT-GLUCOSE [id number] 12:10:00 Test Item Value Reference Range Comments POC-GLUCOSE METER (BEAKER) 157 mg/dL 70-110 TESTED AT [place] [id number] [facility] (test poik=5049) [facility] [address] POCT-GLUCOSE [id number] 07:53:00 Test Item Value Reference Range Comments POC-GLUCOSE METER (BEAKER) 132 mg/dL 70-110 TESTED AT [place] [id number] [facility] (test fitl=7497) [facility] [address] CALCIUM, [id number] 07:44:00 Test Item Value Reference Range Comments CALCIUM IONIZED (BEAKER) (test huej=378) 0.94 mmol/L 1.12-1.27 PH, BLOOD (BEAKER) (test lewh=8891) 7.42 COMPREHENSIVE METABOLIC [id number] 07:05:00 Test Item Value Reference Range Comments TOTAL PROTEIN (BEAKER) 5.9 gm/dL 6.0-8.3 (test fjyx=493) ALBUMIN (BEAKER) (test 2.9 g/dL 3.5-5.0 yjmm=6655) ALKALINE PHOSPHATASE 216 U/L 40-150 (BEAKER) (test iffk=987) BILIRUBIN TOTAL (BEAKER) 0.6 mg/dL 0.2-1.2 (test jtwl=022) SODIUM (BEAKER) (test 132 meq/L 136-145 sbdg=503) POTASSIUM (BEAKER) (test 3.6 meq/L 3.5-5.1 bdvd=169) CHLORIDE (BEAKER) (test 97 meq/L 98-107 sdvd=657) CO2 (BEAKER) (test 24 meq/L 22-29 zkii=802) BLOOD UREA NITROGEN 36 mg/dL 7-21 (BEAKER) (test dyhd=751) CREATININE (BEAKER) (test 2.43 mg/dL 0.57-1.25 tqra=722) GLUCOSE RANDOM (BEAKER) 113 mg/dL 70-105 (test omlh=254) CALCIUM (BEAKER) (test 7.9 mg/dL 8.4-10.2 skfl=952) AST (SGOT) (BEAKER) (test 29 U/L 5-34 awvw=247) ALT (SGPT) (BEAKER) (test 25 U/L 6-55 lylu=636) EGFR (BEAKER) (test 26 mL/min/1.73 sq m ESTIMATED GFR IS NOT zloj=3601) ACCURATE CREATININE CLEARANCE IN PREDICTING GLOMERULAR FILTRATION RATE. ESTIMATED GFR IS NOT APPLICABLE FOR DIALYSIS PATIENTS. [id number] 07:04:00 Test Item Value Reference Range Comments PHOSPHORUS (BEAKER) (test ghyf=606) 3.0 mg/dL 2.3-4.7 [id number] 07:04:00 Test Item Value Reference Range Comments MAGNESIUM (BEAKER) (test dohq=047) 1.7 mg/dL 1.6-2.6 CBC W/PLT COUNT & AUTO [id number] 06:36:00 Test Item Value Reference Range Comments WHITE BLOOD CELL COUNT (BEAKER) (test obtv=675) 12.1 K/ L 3.5-10.5 RED BLOOD CELL COUNT (BEAKER) (test vnai=666) 3.30 M/ L 4.63-6.08 HEMOGLOBIN (BEAKER) (test aexn=949) 9.4 GM/DL 13.7-17.5 HEMATOCRIT (BEAKER) (test sgja=652) 29.3 % 40.1-51.0 MEAN CORPUSCULAR VOLUME (BEAKER) (test amds=763) 88.8 fL 79.0-92.2 MEAN CORPUSCULAR HEMOGLOBIN (BEAKER) (test 28.5 pg 25.7-32.2 qjvr=089) MEAN CORPUSCULAR HEMOGLOBIN CONC (BEAKER) (test 32.1 GM/DL 32.3-36.5 cfzg=971) RED CELL DISTRIBUTION WIDTH (BEAKER) (test 13.7 % 11.6-14.4 wrqo=259) PLATELET COUNT (BEAKER) (test xiki=031) 310 K/CU MM 150-450 MEAN PLATELET VOLUME (BEAKER) (test elig=914) 9.7 fL 9.4-12.4 NUCLEATED RED BLOOD CELLS (BEAKER) (test 0 /100 WBC 0-0 prtz=663) NEUTROPHILS RELATIVE PERCENT (BEAKER) (test 69 % tlyy=606) LYMPHOCYTES RELATIVE PERCENT (BEAKER) (test 12 % vvbt=265) MONOCYTES RELATIVE PERCENT (BEAKER) (test 12 % djbv=863) EOSINOPHILS RELATIVE PERCENT (BEAKER) (test 7 % qhpj=204) BASOPHILS RELATIVE PERCENT (BEAKER) (test 0 % ysju=973) NEUTROPHILS ABSOLUTE COUNT (BEAKER) (test 8.28 K/ L 1.78-5.38 pdmw=042) LYMPHOCYTES ABSOLUTE COUNT (BEAKER) (test 1.40 K/ L 1.32-3.57 ilwc=792) MONOCYTES ABSOLUTE COUNT (BEAKER) (test 1.43 K/ L 0.30-0.82 nqjq=771) EOSINOPHILS ABSOLUTE COUNT (BEAKER) (test 0.81 K/ L 0.04-0.54 ldkv=406) BASOPHILS ABSOLUTE COUNT (BEAKER) (test 0.04 K/ L 0.01-0.08 kafp=476) IMMATURE GRANULOCYTES-RELATIVE PERCENT (BEAKER) 1 % 0-1 (test bufa=7584) POCT-GLUCOSE [id number] 21:45:00 Test Item Value Reference Range Comments POC-GLUCOSE METER (BEAKER) 152 mg/dL 70-110 TESTED AT [facility] [address] [facility] (test qxfa=8663) [facility] [address] URINALYSIS W/ REFLEX URINE [id number] 19:43:00 Test Item Value Reference Range Comments COLOR (BEAKER) (test firx=138) Light Yellow CLARITY (BEAKER) (test otqi=695) Clear SPECIFIC GRAVITY UA (BEAKER) (test ftxg=994) 1.005 1.001-1.035 PH UA (BEAKER) (test tppo=974) 8.5 5.0-8.0 PROTEIN UA (BEAKER) (test cffe=629) 200 mg/dL Negative GLUCOSE UA (BEAKER) (test tuxg=038) 500 mg/dL Negative KETONES UA (BEAKER) (test blcu=953) Negative Negative BILIRUBIN UA (BEAKER) (test ackc=517) Negative Negative BLOOD UA (BEAKER) (test pvqa=781) Trace Negative NITRITE UA (BEAKER) (test hwzu=039) Negative Negative LEUKOCYTE ESTERASE UA (BEAKER) (test hsik=645) Negative Negative UROBILINOGEN UA (BEAKER) (test juhp=103) 0.2 mg/dL 0.2-1.0 RBC UA (BEAKER) (test ragr=615) 0 /HPF WBC UA (BEAKER) (test rqgx=250) 1 /HPF BACTERIA (BEAKER) (test stxu=479) Rare SQUAMOUS EPITHELIAL (BEAKER) (test unrl=641) < /HPF SOURCE(BEAKER) (test dhfa=5598) POCT-GLUCOSE [id number] 16:59:00 Test Item Value Reference Range Comments POC-GLUCOSE METER (BEAKER) 184 mg/dL 70-110 TESTED AT [address] (test zceg=9406) [facility] [address] URINE PROTEIN ELECTROPHORESIS, [id number] 16:32:00 Test Item Value Reference Range Comments PROTEIN, URINE (BEAKER) (test 101 mg/dL 0-14 xwmh=1519) ALBUMIN URINE ELP (BEAKER) 45.1 % (test uclp=5908) GAMMA GLOBULIN URINE (BEAKER) 54.9 % (test imoi=3816) UPEP, ID-438 (BEAKER) (test No monoclonal bands detected. lutn=2950) [id number] (BEAKER) Mary Robledo MD (test rjef=4661) (electronic signature) PROTEIN ELECTROPHORESIS, [id number] 16:02:00 Test Item Value Reference Range Comments ALBUMIN FRACTION (BEAKER) 2.5 g/dL 3.5-5.5 (test fjgw=811) ALPHA 1 FRACTION (BEAKER) 0.3 g/dL 0.2-0.4 (test ludn=491) ALPHA 2 FRACTION (BEAKER) 0.7 g/dL 0.5-0.9 (test nwjk=158) BETA FRACTION (BEAKER) (test 0.8 g/dL 0.6-1.1 vmdx=668) GAMMA GLOBULIN FRACTION 1.1 g/dL 0.7-1.7 (BEAKER) (test hskg=879) INTERPRETATION-119 (BEAKER) Decreased albumin with (test gwnn=0409) concurrent relative increases in all globulin fractions. No monoclonal bands detected. [id number] (BEAKER) Mary Robledo MD (test ryzk=1834) (electronic signature) PROTEIN TOTAL SERUM, SPEP 5.3 gm/dL 6.0-8.3 (BEAKER) (test ruyj=5970) POCT-GLUCOSE [id number] 11:58:00 Test Item Value Reference Range Comments POC-GLUCOSE METER (BEAKER) 197 mg/dL 70-110 [address] (test dmgb=9415) [facility] [address] POCT-GLUCOSE [id number] 08:42:00 Test Item Value Reference Range Comments POC-GLUCOSE METER (BEAKER) 119 mg/dL 70-110 TESTED AT [facility] [address] [facility] (test rdyi=8804) [facility] [address] HEMOGLOBIN [id number] 08:19:00 Test Item Value Reference Range Comments HEMOGLOBIN A1C (BEAKER) (test wyog=722) 5.9 % 4.3-6.1 COMPREHENSIVE METABOLIC [id number] 05:26:00 Test Item Value Reference Range Comments TOTAL PROTEIN (BEAKER) 5.8 gm/dL 6.0-8.3 (test hxju=839) ALBUMIN (BEAKER) (test 2.9 g/dL 3.5-5.0 pxhr=3011) ALKALINE PHOSPHATASE 132 U/L 40-150 (BEAKER) (test msim=381) BILIRUBIN TOTAL (BEAKER) 0.5 mg/dL 0.2-1.2 (test dton=566) SODIUM (BEAKER) (test 133 meq/L 136-145 ceqh=485) POTASSIUM (BEAKER) (test 3.5 meq/L 3.5-5.1 tpbu=074) CHLORIDE (BEAKER) (test 97 meq/L 98-107 dozf=528) CO2 (BEAKER) (test 27 meq/L 22-29 dkcw=419) BLOOD UREA NITROGEN 32 mg/dL 7-21 (BEAKER) (test pkyc=913) CREATININE (BEAKER) (test 2.26 mg/dL 0.57-1.25 gauy=420) GLUCOSE RANDOM (BEAKER) 103 mg/dL 70-105 (test edaw=085) CALCIUM (BEAKER) (test 7.9 mg/dL 8.4-10.2 cykf=100) AST (SGOT) (BEAKER) (test 24 U/L 5-34 exje=013) ALT (SGPT) (BEAKER) (test 18 U/L 6-55 famr=663) EGFR (BEAKER) (test 28 mL/min/1.73 sq m ESTIMATED GFR IS NOT cdsq=6746) ACCURATE CREATININE CLEARANCE IN PREDICTING GLOMERULAR FILTRATION RATE. ESTIMATED GFR IS NOT APPLICABLE FOR DIALYSIS PATIENTS. [id number] 04:54:00 Test Item Value Reference Range Comments PHOSPHORUS (BEAKER) (test kddp=629) 2.8 mg/dL 2.3-4.7 [id number] 04:54:00 Test Item Value Reference Range Comments MAGNESIUM (BEAKER) (test ylxc=500) 1.6 mg/dL 1.6-2.6 CBC W/PLT COUNT & AUTO [id number] 04:30:00 Test Item Value Reference Range Comments WHITE BLOOD CELL COUNT (BEAKER) (test reto=940) 13.5 K/ L 3.5-10.5 RED BLOOD CELL COUNT (BEAKER) (test teuy=894) 3.33 M/ L 4.63-6.08 HEMOGLOBIN (BEAKER) (test tpui=441) 9.6 GM/DL 13.7-17.5 HEMATOCRIT (BEAKER) (test wgom=575) 29.5 % 40.1-51.0 MEAN CORPUSCULAR VOLUME (BEAKER) (test apon=557) 88.6 fL 79.0-92.2 MEAN CORPUSCULAR HEMOGLOBIN (BEAKER) (test 28.8 pg 25.7-32.2 mqlh=891) MEAN CORPUSCULAR HEMOGLOBIN CONC (BEAKER) (test 32.5 GM/DL 32.3-36.5 kavf=934) RED CELL DISTRIBUTION WIDTH (BEAKER) (test 14.0 % 11.6-14.4 kpnw=516) PLATELET COUNT (BEAKER) (test ezrp=331) 277 K/CU MM 150-450 MEAN PLATELET VOLUME (BEAKER) (test iexu=639) 9.2 fL 9.4-12.4 NUCLEATED RED BLOOD CELLS (BEAKER) (test 0 /100 WBC 0-0 ymzy=515) NEUTROPHILS RELATIVE PERCENT (BEAKER) (test 74 % nykz=529) LYMPHOCYTES RELATIVE PERCENT (BEAKER) (test 9 % tttt=777) MONOCYTES RELATIVE PERCENT (BEAKER) (test 12 % hgdu=245) EOSINOPHILS RELATIVE PERCENT (BEAKER) (test 5 % pple=321) BASOPHILS RELATIVE PERCENT (BEAKER) (test 0 % xspn=629) NEUTROPHILS ABSOLUTE COUNT (BEAKER) (test 9.96 K/ L 1.78-5.38 teys=993) LYMPHOCYTES ABSOLUTE COUNT (BEAKER) (test 1.25 K/ L 1.32-3.57 yyme=590) MONOCYTES ABSOLUTE COUNT (BEAKER) (test 1.58 K/ L 0.30-0.82 vomy=452) EOSINOPHILS ABSOLUTE COUNT (BEAKER) (test 0.63 K/ L 0.04-0.54 lnha=824) BASOPHILS ABSOLUTE COUNT (BEAKER) (test 0.05 K/ L 0.01-0.08 szpe=094) IMMATURE GRANULOCYTES-RELATIVE PERCENT (BEAKER) 1 % 0-1 (test kxam=3372) CALCIUM, [id number] 04:27:00 Test Item Value Reference Range Comments CALCIUM IONIZED (BEAKER) (test knyx=959) 0.94 mmol/L 1.12-1.27 PH, BLOOD (BEAKER) (test rahu=7790) 7.41 POCT-GLUCOSE [id number] 21:41:00 Test Item Value Reference Range Comments POC-GLUCOSE METER (BEAKER) 225 mg/dL 70-110 TESTED AT [facility] [address] [facility] (test wuyk=3921) [facility] [address] (CELLAVISION MANUAL DIFF)[id number] 16:57:00 Test Item Value Reference Range Comments NEUTROPHILS - REL (CELLAVISION)(BEAKER) (test 83 % dcas=0483) LYMPHOCYTES - REL (CELLAVISION)(BEAKER) (test 7 % tmnh=6862) MONOCYTES - REL (CELLAVISION)(BEAKER) (test 8 % copa=9313) EOSINOPHILS - REL (CELLAVISION)(BEAKER) (test 2 % asoa=7395) NEUTROPHILS - ABS (CELLAVISION)(BEAKER) (test 8.38 K/ul 1.78-5.38 grec=8783) LYMPHOCYTES - ABS (CELLAVISION)(BEAKER) (test 0.71 K/ul 1.32-3.57 iyff=7885) MONOCYTES - ABS (CELLAVISION)(BEAKER) (test 0.81 K/uL 0.30-0.82 cqul=8457) EOSINOPHILS - ABS (CELLAVISION)(BEAKER) (test 0.20 K/uL 0.04-0.54 enub=2155) TOTAL COUNTED (BEAKER) (test tfed=7211) 100 MANUAL NRBC PER 100 CELLS (BEAKER) (test 1 /100 WBC 0-0 bcbl=5553) SMUDGE CELLS (BEAKER) (test htpe=8610) Present GIANT PLATELETS (BEAKER) (test izhu=082) Present HYPOCHROMIA (BEAKER) (test doid=303) 1+ few ANISOCYTOSIS (BEAKER) (test vzaa=788) 1+ few POIKILOCYTES (BEAKER) (test smvk=755) 1+ few PLATELET CONCENTRATION (CELLAVISION)(BEAKER) Adequate (test czvb=5015) Received comment: User comments: Slide comments:POCT-GLUCOSE [id number] 16: 37:00 Test Item Value Reference Range Comments POC-GLUCOSE METER (BEAKER) 190 mg/dL 70-110 TESTED AT [facility] [address] [facility] (test qzpt=7084) [facility] [address] PET, CARDIAC PERFUSION MULTIPLE STUDIES, REST AND [id number] 14:59: 00Reason for exam:->chest painFINAL REPORT PROCEDURE: Rest/Stress MYOCARDIAL PERFUSION PET with regadenoson\\XA9\\ CPT CODE: 59701 INDICATION: Chest pain, risk factors for CAD [...] of 0.4 mg of regadenoson. Radiotracer was vohzjpvq98 seconds after start of stress. Heart rate [...] Extracardiactracer distribution is normal. 6. No previous [facility] study for comparison. NONINVASIVE RISK STRATIFICATION: The above findings are considered intermediate risk (1% to 3% annual mortality rate) based on the following criterion: - Mild/moderate resting left ventricular dysfunction (LVEF 35% to 49%)- Stress-induced moderate perfusion defect without LV dilation or increasedlung intake (thallium-201)(JACC. 2012;59(9):857-96.) Signed: Venancio Saenz MDReport Verified Date/Time: 11/20/2017 14:59:03 Reading Location: [address] Reading Room POCT-GLUCOSE [id number] 12:45:00 Test Item Value Reference Range Comments POC-GLUCOSE METER ([employer]) 138 mg/dL 70-110 TESTED AT [facility] [address] [facility] (test tguc=5324) [facility] [address] LACTIC ACID, ARTERIAL, WHOLE [id number] 10:51:00 Test Item Value Reference Range Comments LACTATE BLOOD ARTERIAL (2) ([employer]) (test 1.1 mmol/L 0.5-2.2 ohwo=9568) Effective 09/27/2015: Units/Reference Range ChangeNew: 0.5-2.2 mmol/L Previous: 5 -20 mg/dLANTI-NUCLEAR ANTIBODY (YOLA)2017-11-20 10:51:00 Test Item Value Reference Range Comments ANTI-NUCLEAR ANTIBODY (YOLA) ([employer]) (test Negative Negative xcnj=693) VITAMIN D, [id number] 06:31:00 Test Item Value Reference Range Comments VITAMIN D 25-OH (BEAKER) (test lcie=8268) 14.3 ng/mL 6.6-49.9 Effective 03/05/2017: Reference Range ChangeNew: 6.6-49.9 ng/mL Previous: 13.0 -47.8 ng/mLRecommended Vitamin D Target Range: 30.0-40.0 ng/mLTSH/FREE T4 IF [id number] 06:31:00 Test Item Value Reference Range Comments THYROID STIMULATING HORMONE (BEAKER) (test 1.55 uIU/mL 0.35-4.94 uutm=219) POCT-GLUCOSE [id number] 06:22:00 Test Item Value Reference Range Comments POC-GLUCOSE METER (BEAKER) 132 mg/dL 70-110 TESTED AT [facility] [address] [facility] (test ljef=9742) [facility] [address] HEPATITIS PANEL, [id number] 06:07:00 Test Item Value Reference Range Comments HEPATITIS A IGM ANTIBODY (BEAKER) (test Nonreactive Nonreactive tgcs=676) HEPATITIS B CORE IGM ANTIBODY (BEAKER) (test Nonreactive Nonreactive uyza=454) HEPATITIS C ANTIBODY (BEAKER) (test qixs=807) Nonreactive Nonreactive HEPATITIS B SURFACE ANTIGEN (2) (BEAKER) (test Nonreactive Nonreactive vbjc=2568) COMPLEMENT COMPONENT [id number] 05:52:00 Test Item Value Reference Range Comments C4 COMPLEMENT (BEAKER) (test pmrp=931) 23 mg/dL 15-57 COMPLEMENT COMPONENT [id number] 05:52:00 Test Item Value Reference Range Comments C3 COMPLEMENT (BEAKER) (test tvig=752) 82 mg/dL 82-193 PTH, [id number] 05:43:00 Test Item Value Reference Range Comments PARATHYROID HORMONE INTACT (BEAKER) (test 247.5 pg/mL 8.5-72.5 tted=752) URIC [id number] 05:39:00 Test Item Value Reference Range Comments URIC ACID (BEAKER) (test txsk=372) 3.9 mg/dL 2.6-7.2 [id number] 05:39:00 Test Item Value Reference Range Comments MAGNESIUM (BEAKER) (test gjno=701) 1.9 mg/dL 1.6-2.6 [id number] 05:39:00 Test Item Value Reference Range Comments PHOSPHORUS (BEAKER) (test kdet=887) 2.8 mg/dL 2.3-4.7 COMPREHENSIVE METABOLIC [id number] 05:39:00 Test Item Value Reference Range Comments TOTAL PROTEIN (BEAKER) 5.6 gm/dL 6.0-8.3 (test izft=162) ALBUMIN (BEAKER) (test 2.8 g/dL 3.5-5.0 yann=3598) ALKALINE PHOSPHATASE 112 U/L 40-150 (BEAKER) (test oivx=936) BILIRUBIN TOTAL (BEAKER) 0.5 mg/dL 0.2-1.2 (test paxd=768) SODIUM (BEAKER) (test 137 meq/L 136-145 shoq=866) POTASSIUM (BEAKER) (test 3.4 meq/L 3.5-5.1 rbyf=761) CHLORIDE (BEAKER) (test 99 meq/L 98-107 rxnw=672) CO2 (BEAKER) (test 29 meq/L 22-29 ygnq=308) BLOOD UREA NITROGEN 31 mg/dL 7-21 (BEAKER) (test zgnv=701) CREATININE (BEAKER) (test 1.99 mg/dL 0.57-1.25 rgha=335) GLUCOSE RANDOM (BEAKER) 111 mg/dL 70-105 (test omqy=842) CALCIUM (BEAKER) (test 8.3 mg/dL 8.4-10.2 chhs=408) AST (SGOT) (BEAKER) (test 22 U/L 5-34 nicu=204) ALT (SGPT) (BEAKER) (test 17 U/L 6-55 yygi=558) EGFR (BEAKER) (test 32 mL/min/1.73 sq m ESTIMATED GFR IS NOT alhr=7267) ACCURATE CREATININE CLEARANCE IN PREDICTING GLOMERULAR FILTRATION RATE. ESTIMATED GFR IS NOT APPLICABLE FOR DIALYSIS PATIENTS. CREATINE KINASE (CK)2017-11-20 05:39:00 Test Item Value Reference Range Comments CREATINE KINASE TOTAL (BEAKER) (test tvra=721) 97 U/L 29-200 CBC W/PLT COUNT & AUTO [id number] 05:07:00 Test Item Value Reference Range Comments WHITE BLOOD CELL COUNT (BEAKER) (test xket=898) 10.1 K/ L 3.5-10.5 RED BLOOD CELL COUNT (BEAKER) (test hoqp=153) 3.27 M/ L 4.63-6.08 HEMOGLOBIN (BEAKER) (test dxgr=128) 9.4 GM/DL 13.7-17.5 HEMATOCRIT (BEAKER) (test pywh=046) 28.4 % 40.1-51.0 MEAN CORPUSCULAR VOLUME (BEAKER) (test fqzn=651) 86.9 fL 79.0-92.2 MEAN CORPUSCULAR HEMOGLOBIN (BEAKER) (test 28.7 pg 25.7-32.2 ubxp=971) MEAN CORPUSCULAR HEMOGLOBIN CONC (BEAKER) (test 33.1 GM/DL 32.3-36.5 skjj=074) RED CELL DISTRIBUTION WIDTH (BEAKER) (test 14.4 % 11.6-14.4 fcyc=467) PLATELET COUNT (BEAKER) (test scfo=898) 286 K/CU MM 150-450 MEAN PLATELET VOLUME (BEAKER) (test ppyw=164) 9.6 fL 9.4-12.4 NUCLEATED RED BLOOD CELLS (BEAKER) (test 0 /100 WBC 0-0 dcjk=550) CALCIUM, [id number] 05:06:00 Test Item Value Reference Range Comments CALCIUM IONIZED (BEAKER) (test ddoz=915) 1.00 mmol/L 1.12-1.27 PH, BLOOD (BEAKER) (test zjju=1956) 7.46 RHEUMATOID FACTOR [id number] 01:38:00 Test Item Value Reference Range Comments RHEUMATOID FACTOR TITER (BEAKER) (test exig=7319) :8 RHEUMATOID FACTOR AB, REFLEX TO [id number] 01:38:00 Test Item Value Reference Range Comments RHEUMATOID FACTOR (BEAKER) (test hqna=613) Positive POCT-GLUCOSE [id number] 22:04:00 Test Item Value Reference Range Comments POC-GLUCOSE METER (BEAKER) 212 mg/dL 70-110 TESTED AT [facility] [address] [facility] (test bcwr=9402) [facility] [address] POCT-GLUCOSE [id number] 18:12:00 Test Item Value Reference Range Comments POC-GLUCOSE METER (BEAKER) 155 mg/dL 70-110 TESTED AT [facility] [address] (test aloc=6388) [facility] [address] HIV-1 ANTIGEN WITH HIV-1/2 [id number] 16:21:00 Test Item Value Reference Range Comments HIV-1 ANTIGEN WITH HIV 1\\T\\2 ANTIBODY (2) Nonreactive Nonreactive (BEAKER) (test ebur=2588) TROPONIN [id number] 16:04:00 Test Item Value Reference Range Comments TROPONIN I (BEAKER) (test wwfa=568) 0.06 ng/mL 0.00-0.03 Troponin I (TnI) levels [...] acute neurological disease, and persistent tachyarrhythmia.CREATININE, RANDOM [id number] 16:00 :00 Test Item Value Reference Range Comments CREATININE URINE (BEAKER) (test jxnn=885) < mg/dL Reference Range: No NormalsPROTHROMBIN TIME/[id number] 15:58:00 Test Item Value Reference Range Comments PROTIME (BEAKER) (test ghkq=102) 16.0 seconds 11.7-14.7 INR (BEAKER) (test dhky=796) 1.3 <=5.9 RECOMMENDED COUMADIN/WARFARIN INR THERAPY RANGESSTANDARD DOSE: 2.0 - 3.0 Includes: PROPHYLAXIS forvenous thrombosis, systemic embolization; TREATMENT for venous thrombosis and/or pulmonary embolus.HIGH RISK: Target INR is 2.5-3.5 for patients with mechanical heart valves.PROTEIN, RANDOM [id number] 15:56: 00 Test Item Value Reference Range Comments PROTEIN, URINE (BEAKER) (test sycs=9947) 94 mg/dL 0-14 SODIUM, RANDOM [id number] 15:56:00 Test Item Value Reference Range Comments SODIUM URINE (BEAKER) (test jjez=508) 91 meq/L Reference Range: No NormalsURINALYSIS W/ [id number] 15:53:00 Test Item Value Reference Range Comments COLOR (BEAKER) (test asiy=652) Light Yellow CLARITY (BEAKER) (test xxsr=672) Clear SPECIFIC GRAVITY UA (BEAKER) (test vuwr=622) 1.003 1.001-1.035 PH UA (BEAKER) (test jubp=981) 8.0 5.0-8.0 PROTEIN UA (BEAKER) (test avnj=595) 100 mg/dL Negative GLUCOSE UA (BEAKER) (test oaqx=130) 30 mg/dL Negative KETONES UA (BEAKER) (test dvmp=656) Negative Negative BILIRUBIN UA (BEAKER) (test pnhc=856) Negative Negative BLOOD UA (BEAKER) (test vhvy=930) Small Negative NITRITE UA (BEAKER) (test bgew=747) Negative Negative LEUKOCYTE ESTERASE UA (BEAKER) (test twwk=857) Negative Negative UROBILINOGEN UA (BEAKER) (test khwr=644) 0.2 mg/dL 0.2-1.0 RBC UA (BEAKER) (test pcdx=736) 1 /HPF WBC UA (BEAKER) (test vymr=890) 4 /HPF BACTERIA (BEAKER) (test gmhf=852) Rare MUCUS (BEAKER) (test joaf=8110) Rare SQUAMOUS EPITHELIAL (BEAKER) (test dzhm=021) < /HPF SOURCE(BEAKER) (test bnxq=4206) Urine, [place] BASIC METABOLIC [id number] 15:52:00 Test Item Value Reference Range Comments SODIUM (BEAKER) (test 137 meq/L 136-145 uncg=140) POTASSIUM (BEAKER) (test 3.3 meq/L 3.5-5.1 ytlf=114) CHLORIDE (BEAKER) (test 100 meq/L 98-107 hsnh=826) CO2 (BEAKER) (test 26 meq/L 22-29 eacc=261) BLOOD UREA NITROGEN 23 mg/dL 7-21 (BEAKER) (test qtfr=764) CREATININE (BEAKER) (test 1.45 mg/dL 0.57-1.25 lnuj=009) GLUCOSE RANDOM (BEAKER) 120 mg/dL 70-105 (test ypwp=866) CALCIUM (BEAKER) (test 8.1 mg/dL 8.4-10.2 mwjf=664) EGFR (BEAKER) (test 47 mL/min/1.73 sq m ESTIMATED GFR IS NOT moyp=3963) ACCURATE CREATININE CLEARANCE IN PREDICTING GLOMERULAR FILTRATION RATE. ESTIMATED GFR IS NOT APPLICABLE FOR DIALYSIS PATIENTS. POCT-GLUCOSE [id number] 12:09:00 Test Item Value Reference Range Comments POC-GLUCOSE METER (BEAKER) 87 mg/dL 70-110 TESTED AT [address] (test iojo=2636) [place] [id number] POCT-GLUCOSE [id number] 11:21:00 Test Item Value Reference Range Comments POC-GLUCOSE METER (BEAKER) 90 mg/dL 70-110 TESTED AT [address] (test ovgx=4050) [place] [id number] POCT-GLUCOSE [id number] 11:12:00 Test Item Value Reference Range Comments POC-GLUCOSE METER (BEAKER) 111 mg/dL 70-110 TESTED AT [address] (test pcpe=6951) [place] [address] HEMOGLOBIN [id number] 09:59:00 Test Item Value Reference Range Comments HEMOGLOBIN A1C (BEAKER) (test zlei=538) 6.1 % 4.3-6.1 CREATINE KINASE (CK), TOTAL AND [id number] 08:02:00 Test Item Value Reference Range Comments CREATINE KINASE TOTAL (BEAKER) (test xwqq=633) 141 U/L 29-200 CREATINE KINASE-MB (BEAKER) (test rilt=912) 7.9 ng/mL 0.0-6.6 CREATINE KINASE-MB INDEX (BEAKER) (test xecq=197) 5.6 % CK-MB Reference Range:<6.7 Normal6.7-10.0 Borderline>10.0 AbnormalTROPONIN [id number] 08:02:00 Test Item Value Reference Range Comments TROPONIN I (BEAKER) (test pxcp=122) 0.05 ng/mL 0.00-0.03 Troponin I (TnI) levels [...] failure, acidosis, acute neurological disease, and persistent tachyarrhythmia.[id number] 08:01:00 Test Item Value Reference Range Comments POTASSIUM (BEAKER) (test wysb=432) 4.6 meq/L 3.5-5.1 CALCIUM, [id number] 07:49:00 Test Item Value Reference Range Comments CALCIUM IONIZED (BEAKER) (test yfgz=406) 0.99 mmol/L 1.12-1.27 PH, BLOOD (BEAKER) (test jdea=9305) 7.45 LACTIC ACID, VENOUS, WHOLE [id number] 06:58:00 Test Item Value Reference Range Comments LACTATE BLOOD VENOUS (2) 3.8 mmol/L 0.5-2.2 Specimen slightly hemolyzed (BEAKER) (test xedk=0093) Effective 09/27/2015: Units/Reference Range ChangeNew: 0.5-2.2 mmol/L Previous: 5 -20 mg/dLCOMPREHENSIVE METABOLIC [id number] 04:38:00 Test Item Value Reference Range Comments TOTAL PROTEIN (BEAKER) 5.7 gm/dL 6.0-8.3 (test euay=657) ALBUMIN (BEAKER) (test 2.9 g/dL 3.5-5.0 tzxl=4586) ALKALINE PHOSPHATASE 89 U/L 40-150 (BEAKER) (test xsmt=025) BILIRUBIN TOTAL (BEAKER) 0.4 mg/dL 0.2-1.2 (test oksf=810) SODIUM (BEAKER) (test 135 meq/L 136-145 rvrf=523) POTASSIUM (BEAKER) (test 4.6 meq/L 3.5-5.1 rxas=502) CHLORIDE (BEAKER) (test 98 meq/L 98-107 ebon=567) CO2 (BEAKER) (test 20 meq/L 22-29 zdmz=972) BLOOD UREA NITROGEN 59 mg/dL 7-21 (BEAKER) (test pdma=393) CREATININE (BEAKER) (test 2.81 mg/dL 0.57-1.25 fuwi=050) GLUCOSE RANDOM (BEAKER) 105 mg/dL 70-105 (test mbth=740) CALCIUM (BEAKER) (test 8.6 mg/dL 8.4-10.2 bwrj=043) AST (SGOT) (BEAKER) (test 20 U/L 5-34 nhuz=408) ALT (SGPT) (BEAKER) (test 19 U/L 6-55 xctt=176) EGFR (BEAKER) (test 22 mL/min/1.73 sq m ESTIMATED GFR IS NOT ckts=1912) ACCURATE CREATININE CLEARANCE IN PREDICTING GLOMERULAR FILTRATION RATE. ESTIMATED GFR IS NOT APPLICABLE FOR DIALYSIS PATIENTS. B-TYPE NATRIURETIC FACTOR (BNP)2017-11-19 04:37:00 Test Item Value Reference Range Comments B-TYPE NATRIURETIC PEPTIDE (BEAKER) (test 561 pg/mL 0-100 fzwv=020) [id number] 04:37:00 Test Item Value Reference Range Comments PHOSPHORUS (BEAKER) (test ychv=997) 6.1 mg/dL 2.3-4.7 [id number] 04:37:00 Test Item Value Reference Range Comments MAGNESIUM (BEAKER) (test jvou=869) 1.8 mg/dL 1.6-2.6 CBC W/PLT COUNT & AUTO [id number] 04:18:00 Test Item Value Reference Range Comments WHITE BLOOD CELL COUNT (BEAKER) (test ezae=907) 8.2 K/ L 3.5-10.5 RED BLOOD CELL COUNT (BEAKER) (test lbvj=315) 3.15 M/ L 4.63-6.08 HEMOGLOBIN (BEAKER) (test ietl=642) 9.0 GM/DL 13.7-17.5 HEMATOCRIT (BEAKER) (test ivha=087) 27.2 % 40.1-51.0 MEAN CORPUSCULAR VOLUME (BEAKER) (test nkkr=086) 86.3 fL 79.0-92.2 MEAN CORPUSCULAR HEMOGLOBIN (BEAKER) (test 28.6 pg 25.7-32.2 aotc=925) MEAN CORPUSCULAR HEMOGLOBIN CONC (BEAKER) (test 33.1 GM/DL 32.3-36.5 srhi=609) RED CELL DISTRIBUTION WIDTH (BEAKER) (test 14.5 % 11.6-14.4 auca=410) PLATELET COUNT (BEAKER) (test fepy=673) 319 K/CU MM 150-450 MEAN PLATELET VOLUME (BEAKER) (test fjcc=612) 9.4 fL 9.4-12.4 NUCLEATED RED BLOOD CELLS (BEAKER) (test 0 /100 WBC 0-0 pdwr=597) NEUTROPHILS RELATIVE PERCENT (BEAKER) (test 69 % pamf=732) LYMPHOCYTES RELATIVE PERCENT (BEAKER) (test 10 % zmxt=968) MONOCYTES RELATIVE PERCENT (BEAKER) (test 19 % lgrn=608) EOSINOPHILS RELATIVE PERCENT (BEAKER) (test 2 % izgl=258) BASOPHILS RELATIVE PERCENT (BEAKER) (test 0 % urjh=860) NEUTROPHILS ABSOLUTE COUNT (BEAKER) (test 5.68 K/ L 1.78-5.38 yzjd=555) LYMPHOCYTES ABSOLUTE COUNT (BEAKER) (test 0.81 K/ L 1.32-3.57 xxft=149) MONOCYTES ABSOLUTE COUNT (BEAKER) (test 1.55 K/ L 0.30-0.82 cjyd=750) EOSINOPHILS ABSOLUTE COUNT (BEAKER) (test 0.14 K/ L 0.04-0.54 jxwf=443) BASOPHILS ABSOLUTE COUNT (BEAKER) (test 0.02 K/ L 0.01-0.08 gyld=091) IMMATURE GRANULOCYTES-RELATIVE PERCENT (BEAKER) 1 % 0-1 (test rvzn=5524) [id number] 02:41:00 Test Item Value Reference Range Comments POTASSIUM (BEAKER) (test ttmi=029) 4.7 meq/L 3.5-5.1 LACTIC ACID, VENOUS, WHOLE [id number] 00:45:00 Test Item Value Reference Range Comments LACTATE BLOOD VENOUS (2) 7.6 mmol/L 0.5-2.2 Specimen slightly hemolyzed (BEAKER) (test amus=6815) Effective 09/27/2015: Units/Reference Range ChangeNew: 0.5-2.2 mmol/L Previous: 5 -20 mg/dLPOCT-GLUCOSE [id number] 00:27:00 Test Item Value Reference Range Comments POC-GLUCOSE METER (BEAKER) 159 mg/dL 70-110 TESTED AT [facility] [address] [facility] (test fsxq=1586) [facility] [address] CREATINE KINASE (CK), TOTAL AND [id number] 22:57:00 Test Item Value Reference Range Comments CREATINE KINASE TOTAL (BEAKER) (test ufsh=183) 175 U/L 29-200 CREATINE KINASE-MB (BEAKER) (test bpqa=173) 12.3 ng/mL 0.0-6.6 CREATINE KINASE-MB INDEX (BEAKER) (test ptvo=841) 7.0 % CK-MB Reference Range:<6.7 Normal6.7-10.0 Borderline>10.0 AbnormalTROPONIN [id number] 22:57:00 Test Item Value Reference Range Comments TROPONIN I (BEAKER) (test xipb=287) 0.04 ng/mL 0.00-0.03 Troponin I (TnI) levels [...] failure, acidosis, acute neurological disease, and persistent tachyarrhythmia.[id number] 22:51:00 Test Item Value Reference Range Comments POTASSIUM (BEAKER) (test cxgo=490) 4.7 meq/L 3.5-5.1 POCT-GLUCOSE [id number] 19:28:00 Test Item Value Reference Range Comments POC-GLUCOSE METER (BEAKER) 117 mg/dL 70-110 TESTED AT [facility] [address] [facility] (test btju=8482) [facility] [address] BASIC METABOLIC [id number] 19:07:00 Test Item Value Reference Range Comments SODIUM (BEAKER) (test 133 meq/L 136-145 qdrb=707) POTASSIUM (BEAKER) (test 4.6 meq/L 3.5-5.1 wywu=044) CHLORIDE (BEAKER) (test 95 meq/L 98-107 iavk=902) CO2 (BEAKER) (test 19 meq/L 22-29 bpxs=986) BLOOD UREA NITROGEN 57 mg/dL 7-21 (BEAKER) (test erka=878) CREATININE (BEAKER) (test 2.64 mg/dL 0.57-1.25 olyn=978) GLUCOSE RANDOM (BEAKER) 131 mg/dL 70-105 (test dizx=073) CALCIUM (BEAKER) (test 9.1 mg/dL 8.4-10.2 eqog=907) EGFR (BEAKER) (test 23 mL/min/1.73 sq m ESTIMATED GFR IS NOT nykf=4594) ACCURATE CREATININE CLEARANCE IN PREDICTING GLOMERULAR FILTRATION RATE. ESTIMATED GFR IS NOT APPLICABLE FOR DIALYSIS PATIENTS. Call [id number] ACID, VENOUS, WHOLE [id number] 19:00:00 Test Item Value Reference Range Comments LACTATE BLOOD VENOUS (2) (BEAKER) (test 5.8 mmol/L 0.5-2.2 ahrz=4872) Effective 09/27/2015: Units/Reference Range ChangeNew: 0.5-2.2 mmol/L Previous: 5 -20 mg/dLU/S, RENAL, [id number] 16:16:00Reason for exam:->akiShould this be performed at [...] Verified Date /Time: 11/18/2017 16:16:10 Reading Location: [address] Ultrasound Reading Room CREATINE KINASE (CK), TOTAL AND [id number] 15:14:00 Test Item Value Reference Range Comments CREATINE KINASE TOTAL (BEAKER) (test nqkd=371) 173 U/L 29-200 CREATINE KINASE-MB (BEAKER) (test tdxl=735) 11.1 ng/mL 0.0-6.6 CREATINE KINASE-MB INDEX (BEAKER) (test ntai=269) 6.4 % CK-MB Reference Range:<6.7 Normal6.7-10.0 Borderline>10.0 AbnormalTROPONIN [id number] 15:14:00 Test Item Value Reference Range Comments TROPONIN I (BEAKER) (test inzt=955) 0.04 ng/mL 0.00-0.03 Troponin I (TnI) levels [...] acute neurological disease, and persistent tachyarrhythmia.BASIC METABOLIC [id number] 15:11:00 Test Item Value Reference Range Comments SODIUM (BEAKER) (test 137 meq/L 136-145 ufht=566) POTASSIUM (BEAKER) (test 4.4 meq/L 3.5-5.1 ndcy=464) CHLORIDE (BEAKER) (test 97 meq/L 98-107 pgyq=404) CO2 (BEAKER) (test 17 meq/L 22-29 rhpu=453) BLOOD UREA NITROGEN 55 mg/dL 7-21 (BEAKER) (test aksw=655) CREATININE (BEAKER) (test 2.48 mg/dL 0.57-1.25 gbsh=855) GLUCOSE RANDOM (BEAKER) 66 mg/dL 70-105 (test mwnn=130) CALCIUM (BEAKER) (test 9.3 mg/dL 8.4-10.2 wlio=176) EGFR (BEAKER) (test 25 mL/min/1.73 sq m ESTIMATED GFR IS NOT gtbj=1364) ACCURATE CREATININE CLEARANCE IN PREDICTING GLOMERULAR FILTRATION RATE. ESTIMATED GFR IS NOT APPLICABLE FOR DIALYSIS PATIENTS. [id number] 15:06:00 Test Item Value Reference Range Comments PHOSPHORUS (BEAKER) (test nuze=835) 5.4 mg/dL 2.3-4.7 [id number] 15:06:00 Test Item Value Reference Range Comments MAGNESIUM (BEAKER) (test mvtq=984) 2.8 mg/dL 1.6-2.6 URINALYSIS W/ REFLEX URINE [id number] 14:00:00 Test Item Value Reference Range Comments COLOR (BEAKER) (test iqug=059) Yellow CLARITY (BEAKER) (test awun=165) Hazy SPECIFIC GRAVITY UA (BEAKER) (test ztyn=137) 1.013 1.001-1.035 PH UA (BEAKER) (test xnir=970) 6.5 5.0-8.0 PROTEIN UA (BEAKER) (test yduw=457) 600 mg/dL Negative GLUCOSE UA (BEAKER) (test txes=310) 200 mg/dL Negative KETONES UA (BEAKER) (test nfji=595) Negative Negative BILIRUBIN UA (BEAKER) (test hvxa=944) Negative Negative BLOOD UA (BEAKER) (test ulsa=154) Small Negative NITRITE UA (BEAKER) (test ygfg=817) Negative Negative LEUKOCYTE ESTERASE UA (BEAKER) (test qyqg=684) Moderate Negative UROBILINOGEN UA (BEAKER) (test zitj=509) 0.2 mg/dL 0.2-1.0 RBC UA (BEAKER) (test irfw=444) 2 /HPF WBC UA (BEAKER) (test pnaa=170) 3 /HPF SQUAMOUS EPITHELIAL (BEAKER) (test hduc=395) < /HPF GRANULAR CASTS (BEAKER) (test cqah=314) 2 /LPF SOURCE(BEAKER) (test dwjt=5204) CBC W/PLT COUNT & AUTO [id number] 12:50:00 Test Item Value Reference Range Comments WHITE BLOOD CELL COUNT (BEAKER) (test fqeh=482) 14.7 K/ L 3.5-10.5 RED BLOOD CELL COUNT (BEAKER) (test zaor=554) 3.47 M/ L 4.63-6.08 HEMOGLOBIN (BEAKER) (test mkiq=595) 10.2 GM/DL 13.7-17.5 HEMATOCRIT (BEAKER) (test tpdn=068) 32.0 % 40.1-51.0 MEAN CORPUSCULAR VOLUME (BEAKER) (test qsuz=866) 92.2 fL 79.0-92.2 MEAN CORPUSCULAR HEMOGLOBIN (BEAKER) (test 29.4 pg 25.7-32.2 fook=503) MEAN CORPUSCULAR HEMOGLOBIN CONC (BEAKER) (test 31.9 GM/DL 32.3-36.5 bpez=068) RED CELL DISTRIBUTION WIDTH (BEAKER) (test 14.7 % 11.6-14.4 qxib=479) PLATELET COUNT (BEAKER) (test aycn=656) 450 K/CU MM 150-450 MEAN PLATELET VOLUME (BEAKER) (test zkcz=776) 9.9 fL 9.4-12.4 NUCLEATED RED BLOOD CELLS (BEAKER) (test 0 /100 WBC 0-0 pgnj=493) (CELLAVISION MANUAL DIFF)2017-11-18 12:50:00 Test Item Value Reference Range Comments NEUTROPHILS - REL (CELLAVISION)(BEAKER) (test 78 % vcnj=8504) LYMPHOCYTES - REL (CELLAVISION)(BEAKER) (test 8 % zjnh=0040) MONOCYTES - REL (CELLAVISION)(BEAKER) (test 10 % dovp=4714) BANDS - REL (CELLAVISION)(BEAKER) (test 1 % 0-10 oppd=3523) ATYPICAL LYMPHOCYTES - REL (CELLAVISION)(BEAKER) 3 % 0-0 (test mzaf=5277) NEUTROPHILS - ABS (CELLAVISION)(BEAKER) (test 11.47 K/ul 1.78-5.38 lkcp=0265) LYMPHOCYTES - ABS (CELLAVISION)(BEAKER) (test 1.18 K/ul 1.32-3.57 szqx=1801) MONOCYTES - ABS (CELLAVISION)(BEAKER) (test 1.47 K/uL 0.30-0.82 ydim=8578) BANDS - ABS (CELLAVISION)(BEAKER) (test 0.15 K/uL 0.00-0.80 hdkq=3325) ATYPICAL LYMPHOCYTES - ABS (CELLAVISION)(BEAKER) 0.44 K/uL 0.00-0.00 (test tfjq=7456) TOTAL COUNTED (BEAKER) (test ujda=7970) 100 PLT MORPHOLOGY (BEAKER) (test lryh=448) Normal SMUDGE CELLS (BEAKER) (test oiwh=6090) Present POIKILOCYTES (BEAKER) (test oziw=544) 2+ moderate LENIN CELLS (BEAKER) (test cmoz=035) 2+ moderate PLATELET CONCENTRATION (CELLAVISION)(BEAKER) Adequate (test pfjp=6095) Received comment: User comments: Slide comments:HEPATITIS B SURFACE [id number] 12:11:00 Test Item Value Reference Range Comments HEPATITIS B SURFACE ANTIGEN (2) (BEAKER) (test Nonreactive Nonreactive ahso=1386) HEPATITIS B CORE ANTIBODY, [id number] 12:11:00 Test Item Value Reference Range Comments HEPATITIS B CORE IGM ANTIBODY (BEAKER) (test Nonreactive Nonreactive xkes=076) HEPATITIS C [id number] 12:11:00 Test Item Value Reference Range Comments HEPATITIS C ANTIBODY (BEAKER) (test szzp=355) Nonreactive Nonreactive HEPATITIS B CORE ANTIBODY, [id number] 12:11:00 Test Item Value Reference Range Comments HEPATITIS B CORE TOTAL ANTIBODY (BEAKER) (test Nonreactive Nonreactive yuum=233) POCT-GLUCOSE [id number] 12:05:00 Test Item Value Reference Range Comments POC-GLUCOSE METER (BEAKER) 179 mg/dL 70-110 TESTED AT [facility] [address] [facility] (test ozdx=2313) [facility] [address] LACTIC ACID, VENOUS, WHOLE [id number] 11:18:00 Test Item Value Reference Range Comments LACTATE BLOOD VENOUS (2) (BEAKER) (test 8.0 mmol/L 0.5-2.2 gdol=8633) Effective 09/27/2015: Units/Reference Range ChangeNew: 0.5-2.2 mmol/L Previous: 5 -20 mg/[id number] 11:16:00 Test Item Value Reference Range Comments POTASSIUM (BEAKER) (test efcr=147) 5.3 meq/L 3.5-5.1 BLOOD GAS, [id number] 10:48:00 Test Item Value Reference Range Comments PH VENOUS (BEAKER) (test lvzk=673) 7.49 7.32-7.42 PCO2 VENOUS (BEAKER) (test sdkl=738) 24 mmHg 41-51 PO2 VENOUS (BEAKER) (test krdq=985) 41 mmHg 25-40 O2 SATURATION VENOUS (BEAKER) (test ehsg=453) 86.8 % 40.0-70.0 HCO3 VENOUS (BEAKER) (test kkbt=830) 18 mmol/L 21-29 BASE EXCESS VENOUS (BEAKER) (test wqup=450) -4.6 mmol/L -2.0-3.0 PATIENT TEMPERATURE (BEAKER) (test tssn=4521) 34.5 C FIO2 (BEAKER) (test hzex=0248) 36.0 % [id number] 10:27:00 Test Item Value Reference Range Comments SODIUM (BEAKER) (test smfm=461) 133 meq/L 136-145 POTASSIUM (BEAKER) (test kqac=878) 6.8 meq/L 3.5-5.1 CHLORIDE (BEAKER) (test cppe=907) 102 meq/L 98-107 CO2 (BEAKER) (test immj=084) 8 meq/L 22-29 Call [id number] FUNCTION [id number] 10:23:00 Test Item Value Reference Range Comments TOTAL PROTEIN (BEAKER) (test tcym=432) 6.3 gm/dL 6.0-8.3 ALBUMIN (BEAKER) (test pfzr=0537) 3.2 g/dL 3.5-5.0 BILIRUBIN TOTAL (BEAKER) (test cjkb=504) 0.4 mg/dL 0.2-1.2 BILIRUBIN DIRECT (BEAKER) (test temf=319) 0.2 mg/dL 0.1-0.5 ALKALINE PHOSPHATASE (BEAKER) (test fqjs=925) 95 U/L 40-150 AST (SGOT) (BEAKER) (test jdfm=152) 20 U/L 5-34 ALT (SGPT) (BEAKER) (test roph=340) 21 U/L 6-55 Call [id number] 10:14:00 Test Item Value Reference Range Comments PHOSPHORUS (BEAKER) (test mdhm=108) 10.6 mg/dL 2.3-4.7 [id number] 10:12:00 Test Item Value Reference Range Comments MAGNESIUM (BEAKER) (test kjuf=573) 2.2 mg/dL 1.6-2.6 BLOOD GAS, [id number] 09:10:00 Test Item Value Reference Range Comments PH VENOUS (BEAKER) (test jjbk=354) 7.24 7.32-7.42 PCO2 VENOUS (BEAKER) (test vits=850) 24 mmHg 41-51 PO2 VENOUS (BEAKER) (test enjh=849) 54 mmHg 25-40 O2 SATURATION VENOUS (BEAKER) (test ensx=873) 86.6 % 40.0-70.0 HCO3 VENOUS (BEAKER) (test urkc=479) 10 mmol/L 21-29 BASE EXCESS VENOUS (BEAKER) (test cxsz=232) -16.0 mmol/L -2.0-3.0 PATIENT TEMPERATURE (BEAKER) (test yfkb=4192) 35.6 C FIO2 (BEAKER) (test fifi=4235) 36.0 % RAD, CHEST, 1 VIEW, NON [id number] 08:59:00Reason for exam:->edemaShould this be performed at the bedside?->YesFINAL REPORT Chest one view Discussion: Semiconfluent bilateral pulmonary opacities presumably representing edema. There is some suspected scattered nodularity that probably represents granulomas. No gross effusion or pneumothorax. Right IJ line in place. Heart size normal. Signed: Renu Hirsch Verified Date /Time: 11/18/2017 08:59:05 Reading Location: [facility] Radiology Reading Room [id number] 07:53:00 Test Item Value Reference Range Comments PHOSPHORUS (BEAKER) (test htxj=057) 10.8 mg/dL 2.3-4.7 CALCIUM, [id number] 07:12:00 Test Item Value Reference Range Comments CALCIUM IONIZED (BEAKER) (test fulh=102) 1.14 mmol/L 1.12-1.27 PH, BLOOD (BEAKER) (test rmls=4141) 7.11 BASIC METABOLIC [id number] 07:04:00 Test Item Value Reference Range Comments SODIUM (BEAKER) (test 129 meq/L 136-145 rarc=678) POTASSIUM (BEAKER) (test 7.3 meq/L 3.5-5.1 boev=422) CHLORIDE (BEAKER) (test 102 meq/L 98-107 skjc=256) CO2 (BEAKER) (test 6 meq/L 22-29 brkf=426) BLOOD UREA NITROGEN 123 mg/dL 7-21 (BEAKER) (test auim=822) CREATININE (BEAKER) (test 4.47 mg/dL 0.57-1.25 jcyg=361) GLUCOSE RANDOM (BEAKER) 222 mg/dL 70-105 (test pdnm=403) CALCIUM (BEAKER) (test 9.5 mg/dL 8.4-10.2 sztx=421) EGFR (BEAKER) (test 13 mL/min/1.73 sq m ESTIMATED GFR IS NOT vuuz=9814) ACCURATE CREATININE CLEARANCE IN PREDICTING GLOMERULAR FILTRATION RATE. ESTIMATED GFR IS NOT APPLICABLE FOR DIALYSIS PATIENTS. POCT-GLUCOSE [id number] 06:57:00 Test Item Value Reference Range Comments POC-GLUCOSE METER (BEAKER) 203 mg/dL 70-110 TESTED AT [facility] [address] [facility] (test tckx=1544) [facility] [address] CREATINE KINASE (CK), TOTAL AND [id number] 06:54:00 Test Item Value Reference Range Comments CREATINE KINASE TOTAL (BEAKER) (test kbng=348) 94 U/L 29-200 CREATINE KINASE-MB (BEAKER) (test cqrd=183) 7.4 ng/mL 0.0-6.6 CREATINE KINASE-MB INDEX (BEAKER) (test qcin=078) 7.9 % CK-MB Reference Range:<6.7 Normal6.7-10.0 Borderline>10.0 AbnormalTROPONIN [id number] 06:54:00 Test Item Value Reference Range Comments TROPONIN I (BEAKER) (test xrwm=467) 0.02 ng/mL 0.00-0.03 Troponin I (TnI) levels [...] failure, acidosis, acute neurological disease, and persistent tachyarrhythmia.[id number] 06:53:00 Test Item Value Reference Range Comments MAGNESIUM (BEAKER) (test algq=507) 2.3 mg/dL 1.6-2.6 B-TYPE NATRIURETIC FACTOR (BNP)2017-11-18 06:38:00 Test Item Value Reference Range Comments B-TYPE NATRIURETIC PEPTIDE (BEAKER) (test 866 pg/mL 0-100 zvbu=607) PROTHROMBIN TIME/[id number] 06:36:00 Test Item Value Reference Range Comments PROTIME (BEAKER) (test xafc=904) 16.1 seconds 11.7-14.7 INR (BEAKER) (test mwsz=878) 1.3 <=5.9 RECOMMENDED COUMADIN/WARFARIN INR THERAPY RANGESSTANDARD DOSE: 2.0 - 3.0 Includes: PROPHYLAXIS forvenous thrombosis, systemic embolization; TREATMENT for venous thrombosis and/or pulmonary embolus.HIGH RISK: Target INR is 2.5-3.5 for patients with mechanical heart valves.LACTIC ACID, VENOUS, WHOLE [id number] 06:15:00 Test Item Value Reference Range Comments LACTATE BLOOD VENOUS (2) (BEAKER) (test 8.9 mmol/L 0.5-2.2 gjcn=3936) Effective 09/27/2015: Units/Reference Range ChangeNew: 0.5-2.2 mmol/L Previous: 5 -20 mg/dL
[2018-01-28] MEDS ORDERED: D50W 25 GM/50 ML SYRINGE IV ONE (09:45)
[2018-01-28 10:06] LABS: Absolute Lymphocytes (CBC) 1.9 K/uL (0.7-4.9); Absolute Monocytes 1.6 K/uL (0.1-1.3); Absolute Neutrophil 7.2 K/uL (1.8-8.0); Basophils % 0.8 % (0-1.3); Eosinophils % 1.4 % (0-4.4); Hematocrit 31.1 % (39.6-49.0); Lymphocytes % 17.6 % (15.3-44.8); MCH 29.9 pg (27.0-35.0); MCV 93.6 fL (80-100); MPV 7.3 fL (7.6-11.3); Monocytes % 14.9 % (3.3-12.3); RBC Red Blood Cell Count 3.32 M/uL (4.33-5.43)
--- NOTE | 2018-01-28 10:29 | ER ---
Nurse's Notes [facility] Name: Nayla Greenberg Age: 82 yrs Sex: Male : 1935 Arrival Date: 01/28/2018 Time: 09:19 Bed 5 Private MD: Diagnosis: Hypoglycemia, unspecified;Obesity, unspecified;End stage renal disease;Acidosis Presentation: 01/28 09:20 Presenting complaint: EMS states: pt has not had dialysis since Friday, pts family said tw2 he was altered, for us he was answering appropriatly A\T\Ox3, blood sugar was 30's we gave glucose tab, then glucagon now its in the 50's, vs stable hypertensive in 130's. Transition of care: patient was not received from another setting of care. Onset of symptoms was January 28, 2018. Risk Assessment: Do you want to hurt yourself or someone else? Patient reports no desire to harm self or others. Initial Sepsis Screen: Does the patient have a suspected source of infection? No. Patient's initial sepsis screen is negative. Care prior to arrival: Glucose check: 50. 09:20 Method Of Arrival: EMS: [facility] tw2 09:20 Acuity: KAROL 2 tw2 Historical: - Allergies: 09:50 adhesive tape-silicones; tw2 - Home Meds: 09:50 amlodipine 10 mg tab 1 tab once daily [Active]; Lasix 40 mg Oral tab once daily tw2 [Active]; gabapentin 300 mg Oral cap 1 cap at bedtime [Active]; Lipitor Oral [Active]; metformin 1,000 mg Oral tab 2 times per day [Active]; metoprolol tartrate 25 mg Oral tab 0.5 tab 2 times per day [Active]; multivitamin Oral daily [Active]; Vitamin D Oral 400 unit daily [Active]; - PMHx: 09:50 RENAL FAILURE; paralysis; muscle atrophy; Hypertension; Hyperlipidemia; Diabetes - tw2 NIDDM; - Immunization history:: Adult Immunizations. - Social history:: Smoking status: . - Family history:: not pertinent. - Ebola Screening: : Patient denies travel to an Ebola-affected area in the 21 days before illness onset. Screenin:27 Abuse screen: Denies threats or abuse. Nutritional screening: No deficits noted. tw2 Tuberculosis screening: No symptoms or risk factors identified. Fall Risk None identified. Assessment: 09:20 General: Appears in no apparent distress. comfortable, well developed, well nourished, sg Behavior is cooperative, appropriate for age. Pain: Denies pain. Neuro: Level of Consciousness is awake, alert, obeys commands, Oriented to person, place, time, Full function Speech is normal, Facial symmetry appears normal. Cardiovascular: Heart tones S1 S2 present Capillary refill is sluggish in bilateral fingers toes Patient's skin is warm and dry. Chest pain is denied. Respiratory: Airway is patent Respiratory effort is even, unlabored, Respiratory pattern is regular, symmetrical. GI: Abdomen is round non-distended, obese. : No signs and/or symptoms were reported regarding the genitourinary system. EENT: No signs and/or symptoms were reported regarding the EENT system. Derm: Skin is fragile, is thin, Skin is dry, Skin is normal, Skin temperature is warm. Musculoskeletal: Circulation, motion, and sensation intact. Range of motion: limited in right shoulder, right elbow and right wrist. 10:24 Reassessment: Reassessment: Patient appears in no apparent distress at this time. sg Patient and/or family updated on plan of care and expected duration. Pain level reassessed. Patient is alert, oriented x 3, equal unlabored respirations, skin warm/dry/pink. pt son at bedside at this time, srx2, call light within reach, bed in low and locked position, pt remains on monitors at this time, awaiting lab results, awaiting new orders at this time. 12:30 Reassessment: Patient appears in no apparent distress at this time. Patient and/or sg family updated on plan of care and expected duration. Pain level reassessed. Patient is alert, oriented x 3, equal unlabored respirations, skin warm/dry/pink. Patient states symptoms have not improved. Vital Signs: 09:19 BP 155 / 130; Pulse 74; Resp 17; Pulse Ox 99% on R/A; Pain 0/10; tw2 10:41 BP 116 / 60; Pulse 56; Resp 16 S; Temp 97.1; Pulse Ox 100% on R/A; Pain 0/10; sg 11:56 BP 93 / 53; Pulse 54; Resp 17; Pulse Ox 100% on R/A; tw2 12:55 BP 106 / 60; Pulse 55; Resp 17; Pulse Ox 100% on R/A; Pain 0/10; sg ED Course: 09:19 Patient arrived in ED. tw2 09:22 Triage completed. tw2 09:27 Arm band placed on. tw2 09:27 Bed in low position. Side rails up X2. conveyor monitor on. Pulse ox on. NIBP on. tw2 09:29 William Torres MD is Attending Physician. alexandre 09:51 EKG done, by target aircraft technician. reviewed by William Torres MD. at1 10:00 Missed attempt(s): 20 gauge in right antecubital area. Bleeding controlled, band aid sg applied, catheter tip intact. 10:19 Alexandru Morales, CHIQUITA is Primary Nurse. sg 10:23 X-ray completed. Portable x-ray completed in exam room. Patient tolerated procedure jb2 well. 10:25 XRAY Chest (1 view) In Process Unspecified. EDMS 10:27 Epifanio Manley DO is Hospitalizing Provider. alexandre 10:45 Inserted saline lock: 20 gauge in left antecubital area, using aseptic technique. IV sg inserted by Renetta Wakefield RN. 12:55 Patient admitted, IV remains in place. intact, No redness/swelling at site. sg Administered Medications: 09:45 Drug: D50W 25 ml {Note: 1/2 amp ordered at this time per Dr. Torres via dialysis blue tw2 port .} Route: IVP; Site: Other; 11:00 Follow up: Response: No adverse reaction; Blood sugar is elevated sg 11:15 Not Given (Duplicate Order): HEParin 3000 units IV at calculated rate See iw Administration Instructions; pack blue dialysis port 12:28 Drug: Sodium Bicarbonate 1 amp Route: IVP; Site: left antecubital; sg 13:10 Follow up: Response: No adverse reaction sg 12:29 Drug: D5W 1000 ml, Sodium Bicarbonate 150 mEq Route: IV; Rate: 50 ml/hr; Site: left sg antecubital; 13:10 Follow up: Response: No adverse reaction; IV Status: Infusion continued upon admission sg Point of Care Testing: Blood Glucose: 09:20 Blood Glucose: 44 mg/dL; tw2 10:21 Blood Glucose: 100 mg/dL; sg 09:20 PROVIDER NOTIFIED tw2 Ranges: Outcome: 10:28 Decision to Hospitalize by Provider. alexandre 12:54 Admitted to Med/surg accompanied by tech, family with patient, via stretcher, room 202, with chart, Report called to Edwina PORRAS 12:54 Condition: stable 12:54 Instructed on the need for admit, Demonstrated understanding of instructions. 13:20 Patient left the ED. iw Signatures: Dispatcher [employer] EDMS Alexandru Morales, CHIQUITA RN William Collado MD MD cha Buechter, Jesse jb2 Renetta Wakefield RN CHIQUITA Koki Stiles, giving officer EKG Tat1 Nancy Hsieh RN RN tw2 Corrections: (The following items were deleted from the chart) 09:20 09:19 Blood Glucose: Blood Glucose Reading=44 mg/dL. tw2 tw2 10:25 10:19 Reassessment: sg sg 10:44 09:50 D50W 50 ml IVP in Other sg sg 13:13 13:12 Response: No adverse reaction; Blood sugar is elevated sg sg
--- NOTE | 2018-01-28 10:29 | EDPHYS ---
Physician Documentation [facility] Name: Nayla Greenberg Age: 82 yrs Sex: Male : 1935 Arrival Date: 01/28/2018 Time: 09:19 Bed 5 Private MD: ED Physician William Torres HPI: 01/28 09:44 This 82 yrs old Male presents to ER via EMS with complaints of Low Blood Sugar.alexandre 09:44 The patient or guardian reports hypoglycemia. Onset: The symptoms/episode alexandre began/occurred just prior to arrival, this morning. Associated signs and symptoms: Pertinent positives: nausea. Current symptoms: In the emergency department the patient's symptoms are unchanged from the initial presentation, despite home interventions, despite EMS interventions. The patient has experienced similar episodes in the past, a few times. Historical: - Allergies: 09:50 adhesive tape-silicones; tw2 - Home Meds: 09:50 amlodipine 10 mg tab 1 tab once daily [Active]; Lasix 40 mg Oral tab once daily tw2 [Active]; gabapentin 300 mg Oral cap 1 cap at bedtime [Active]; Lipitor Oral [Active]; metformin 1,000 mg Oral tab 2 times per day [Active]; metoprolol tartrate 25 mg Oral tab 0.5 tab 2 times per day [Active]; multivitamin Oral daily [Active]; Vitamin D Oral 400 unit daily [Active]; - PMHx: 09:50 RENAL FAILURE; paralysis; muscle atrophy; Hypertension; Hyperlipidemia; Diabetes - tw2 NIDDM; - Immunization history:: Adult Immunizations. - Social history:: Smoking status: . - Family history:: not pertinent. - Ebola Screening: : Patient denies travel to an Ebola-affected area in the 21 days before illness onset. ROS: 09:45 Constitutional: Negative for fever, chills, and weight loss, Eyes: Negative for injury, alexandre pain, redness, and discharge, ENT: Negative for injury, pain, and discharge, Neck: Negative for injury, pain, and swelling, Cardiovascular: Negative for chest pain, palpitations, and edema, Respiratory: Negative for shortness of breath, cough, wheezing, and pleuritic chest pain, Abdomen/GI: Negative for abdominal pain, nausea, vomiting, diarrhea, and constipation, Back: Negative for injury and pain, : Negative for injury, bleeding, discharge, and swelling, Skin: Negative for injury, rash, and discoloration, Psych: Negative for depression, anxiety, suicide ideation, homicidal ideation, and hallucinations, Allergy/Immunology: Negative for hives, rash, and allergies, Endocrine: Negative for neck swelling, polydipsia, polyuria, polyphagia, and marked weight changes, Hematologic/Lymphatic: Negative for swollen nodes, abnormal bleeding, and unusual bruising. 09:45 MS/extremity: Positive for decreased range of motion, swelling, of the right arm, left arm, right leg and left leg. 09:45 Neuro: Positive for altered mental status, weakness. Exam: 09:45 Constitutional: This is a well developed, well nourished patient who is awake, alert, alexandre and in no acute distress. Head/Face: Normocephalic, atraumatic. Eyes: Pupils equal round and reactive to light, extra-ocular motions intact. Lids and lashes normal. Conjunctiva and sclera are non-icteric and not injected. Cornea within normal limits. Periorbital areas with no swelling, redness, or edema. ENT: Nares patent. No nasal discharge, no septal abnormalities noted. Tympanic membranes are normal and external auditory canals are clear. Oropharynx with no redness, swelling, or masses, exudates, or evidence of obstruction, uvula midline. Mucous membranes moist. Neck: Trachea midline, no thyromegaly or masses palpated, and no cervical lymphadenopathy. Supple, full range of motion without nuchal rigidity, or vertebral point tenderness. No Meningismus. Chest/axilla: Normal chest wall appearance and motion. Nontender with no deformity. No lesions are appreciated. Cardiovascular: Regular rate and rhythm with a normal S1 and S2. No gallops, murmurs, or rubs. Normal PMI, no JVD. No pulse deficits. Abdomen/GI: Soft, non-tender, with normal bowel sounds. No distension or tympany. No guarding or rebound. No evidence of tenderness throughout. Back: No spinal tenderness. No costovertebral tenderness. Full range of motion. Male : Normal genitalia with no discharge or lesions. MS/ Extremity: Pulses equal, no cyanosis. Neurovascular intact. Full, normal range of motion. Psych: Awake, alert, with orientation to person, place and time. Behavior, mood, and affect are within normal limits. 09:45 Respiratory: the patient does not display signs of respiratory distress, Respirations: normal, Breath sounds: bronchial sounds, that are mild, are scattered, decreased breath sounds, Respiratory rate: 18 Vital Signs: 09:19 BP 155 / 130; Pulse 74; Resp 17; Pulse Ox 99% on R/A; Pain 0/10; tw2 10:41 BP 116 / 60; Pulse 56; Resp 16 S; Temp 97.1; Pulse Ox 100% on R/A; Pain 0/10; sg 11:56 BP 93 / 53; Pulse 54; Resp 17; Pulse Ox 100% on R/A; tw2 12:55 BP 106 / 60; Pulse 55; Resp 17; Pulse Ox 100% on R/A; Pain 0/10; sg MDM: 09:29 Patient medically screened. [facility] 09:45 Data reviewed: vital signs, nurses notes, lab test result(s), EKG, radiologic studies, alexandre plain films. 01/28 09:30 Order name: Basic Metabolic Panel; Complete Time: 11:33 [facility] 01/28 09:30 Order name: CBC with Diff; Complete Time: 10:26 [facility] 01/28 09:30 Order name: Ckmb; Complete Time: 11:33 [facility] 01/28 09:30 Order name: CPK; Complete Time: 11:33 [facility] 01/28 09:30 Order name: LFT's; Complete Time: 11:33 [facility] 01/28 09:30 Order name: Magnesium; Complete Time: 11:33 [facility] 01/28 09:30 Order name: NT PRO-BNP; Complete Time: 11:33 [facility] 01/28 09:30 Order name: PT-INR; Complete Time: 12:20 [facility] 01/28 09:30 Order name: Ptt, Activated; Complete Time: 12:20 [facility] 01/28 09:30 Order name: Troponin (emerg Dept Use Only); Complete Time: 11:33 [facility] 01/28 09:30 Order name: XRAY Chest (1 view); Complete Time: 10:52 [facility] 01/28 09:30 Order name: Lipase; Complete Time: 11:33 [facility] 01/28 11:36 Order name: ABG Arterial Blood Gas; Complete Time: 12:20 [facility] 01/28 09:30 Order name: EKG; Complete Time: 09:31 [facility] 01/28 09:30 Order name: Cardiac monitoring; Complete Time: 09:38 [facility] 01/28 09:30 Order name: EKG - Nurse/Tech; Complete Time: 09:38 [facility] 01/28 09:30 Order name: IV Saline Lock; Complete Time: 10:45 [facility] 01/28 09:30 Order name: Labs collected and sent; Complete Time: 09:48 [facility] 01/28 09:30 Order name: O2 Per Protocol; Complete Time: 09:38 [facility] 01/28 09:30 Order name: O2 Sat Monitoring; Complete Time: 09:38 [facility] 01/28 10:31 Order name: CONS Physician Consult [facility] 01/28 10:57 Order name: Labs - recollect needed; Complete Time: 11:51 bd Administered Medications: 09:45 Drug: D50W 25 ml {Note: 1/2 amp ordered at this time per Dr. Torres via dialysis blue tw2 port .} Route: IVP; Site: Other; 11:00 Follow up: Response: No adverse reaction; Blood sugar is elevated sg 11:15 Not Given (Duplicate Order): HEParin 3000 units IV at calculated rate See iw Administration Instructions; pack blue dialysis port 12:28 Drug: Sodium Bicarbonate 1 amp Route: IVP; Site: left antecubital; sg 13:10 Follow up: Response: No adverse reaction sg 12:29 Drug: D5W 1000 ml, Sodium Bicarbonate 150 mEq Route: IV; Rate: 50 ml/hr; Site: left sg antecubital; 13:10 Follow up: Response: No adverse reaction; IV Status: Infusion continued upon admission sg Point of Care Testing: Blood Glucose: 09:20 Blood Glucose: 44 mg/dL; tw2 10:21 Blood Glucose: 100 mg/dL; sg 09:20 PROVIDER NOTIFIED tw2 Ranges: Critical Glucose Levels:Adult <50 mg/dl or >400 mg/dl <40 mg/dl or >180 mg/dl Disposition: 01/28/18 10:28 Hospitalization ordered by Epifanio Manley for Inpatient Admission. Preliminary diagnosis are Hypoglycemia, unspecified, Obesity, unspecified, End stage renal disease, Acidosis. - Bed requested for Telemetry/MedSurg (Inpatient). - Status is Inpatient Admission. iw - Condition is Fair. - Problem is new. - Symptoms have improved. UTI on Admission? No Signatures: Dispatcher [employer] EDUT Itzel Rabago Steven, RN RN sg William Trores MD MD cha Williams, Irene, RN RN iw Nancy Hsieh RN RN tw2 Corrections: (The following items were deleted from the chart) 11:37 10:28 Hospitalization Ordered by Epifanio Manley DO for Observation. Preliminary [facility] diagnosis is Hypoglycemia, unspecified; Obesity, unspecified; End stage renal disease. Bed requested for Telemetry/MedSurg (observation). Status is Observation. Condition is Fair. Problem is new. Symptoms have improved. UTI on Admission? No. alexandre 11:37 11:37 01/28/2018 10:28 Hospitalization Ordered by Epifanio Manley DO for Inpatient bd Admission. Preliminary diagnosis is Hypoglycemia, unspecified; Obesity, unspecified; End stage renal disease; Acidosis. Bed requested for Telemetry/MedSurg (Inpatient). Status is Inpatient Admission. Condition is Fair. Problem is new. Symptoms have improved. UTI on Admission? No. alexandre 12:09 11:37 01/28/2018 10:28 Hospitalization Ordered by Epifanio Manley DO for Inpatient bd Admission. Preliminary diagnosis is Hypoglycemia, unspecified; Obesity, unspecified; End stage renal disease. Bed requested for Telemetry/MedSurg (observation). Status is Inpatient Admission. Condition is Fair. Problem is new. Symptoms have improved. UTI on Admission? No. bd 13:20 12:09 01/28/2018 10:28 Hospitalization Ordered by Epifanio Manley DO for Inpatient iw Admission. Preliminary diagnosis is Hypoglycemia, unspecified; Obesity, unspecified; End stage renal disease; Acidosis. Bed requested for Telemetry/MedSurg (Inpatient). Status is Inpatient Admission. Condition is Fair. Problem is new. Symptoms have improved. UTI on Admission? No. bd
[2018-01-28] MEDS ORDERED: D50W 25 GM/50 ML SYRINGE IV PRN (10:31)
[2018-01-28] MEDS ORDERED: GLUCAGON 1 MG/VIAL IM PRN (10:31)
--- NOTE | 2018-01-28 10:44 | RAD REPORT ---
EXAM DESCRIPTION: RAD - Chest Single View - 01/28/2018 10:26 am CLINICAL HISTORY: COUGH Chest pain. COMPARISON: Chest Single View dated 12/24/2017; Chest Single View dated 12/22/2017; Chest Single View d ated 12/21/2017; Chest Single View dated 12/20/2017 FINDINGS: Portable technique limits examination quality. Small calcified granulomas present left upper lobe. The lungs are clear of acute infiltrate. Right-si ded venous catheter has tip in the SVC. The heart is upper limit normal in size. No displaced fractur es. IMPRESSION: No acute intrathoracic process suspected.
[2018-01-28 11:04] LABS: ALT/SGPT 25 U/L (12-78); AST/SGOT 31 U/L (15-37); Albumin 3.2 g/dL (3.4-5.0); Alkaline Phosphatase 134 U/L (45-117); BUN Blood Urea Nitrogen 38 mg/dL (7-18); Bilirubin Direct 0.2 mg/dL (0-0.2); Bilirubin Total 0.4 mg/dL (0.2-1.0); CKMB Creatine Kinase MB 6.8 ng/mL (0.3-3.6); Creatine Phosphokinase 74 U/L (39-308); Lipase 325 U/L (73-393); NT PRO-BNP 5645 pg/mL (<450); Potassium 5.1 mmol/L (3.5-5.1); Protein, Total 6.8 g/dL (6.4-8.2); Sodium Level 130 mmol/L (136-145); Troponin (Emerg Dept Use Only) < 0.02 ng/mL (0.0-0.045)
[2018-01-28 11:07] LABS: Bicarbonate 8 mmol/L (21-32); Glucose Level 49 mg/dL (74-106)
[2018-01-28] MEDS ORDERED: HYDRALAZINE HCL 20 MG/ML VIAL IV PRN (11:09)
[2018-01-28] MEDS ORDERED: ACETAMINOPHEN 500 MG TAB PO PRN (11:09)
[2018-01-28] MEDS ORDERED: ONDANSETRON 4 MG/2 ML VIAL IV PRN (11:09)
[2018-01-28 11:28] LABS: Arterial Blood Carboxyhemoglob 0.8 % (0-1.5); Blood Gas Oxyhemoglobin 96.2 % (94-97); Blood O2 Saturation 98.1 % (92-98.5)
[2018-01-28] MEDS: INSULIN -REGULAR HUMAN 50 UNIT/0.5 ML ML SQ SCH ×3 (11:30→21:00)
[2018-01-28] MEDS ORDERED: WATER FOR INJ,STERILE 1,000 ML with NA BICARB 8.4% 150 MEQ IV SCH ×2 (12:00)
[2018-01-28 12:02] LABS: Protime INR 1.12
[2018-01-28] MEDS ORDERED: SODIUM BICARB 50 MEQ/50ML VIAL ONE (12:23)
[2018-01-28] MEDS: D5W 1,000 ML with NA BICARB 8.4% 150 MEQ IV SCH ×2 (13:00)
--- NOTE | 2018-01-28 14:17 | P.HP ---
Certification for Inpatient Patient admitted to: Observation With expected LOS: <2 Midnights Patient will require the following post-hospital care: Home Health Services Practitioner: I am a practitioner with admitting privileges, knowledge of patient current condition, hospital course, and medical plan of care. Services: Services provided to patient in accordance with Admission requirements found in Title 42 Section 412.3 of the Code of Federal Regulations Patient History Date of Service: 01/28/18 Primary Care Provider: [facility]; Nephrology-Dr. Grijalva Reason for admission: Altered mental status History of Present Illness: 82-year-old male present emergency room with altered mental status. Patient found to be hypoglycemic. Blood sugar was as low as 30. Patient was given glucagon in the emergency room. This improved. His mentation also improved. Patient recently started dialysis about 2 weeks ago. Patient with multiple medical problems including hypertension, diabetes, hyperlipidemia. Family reports that he still takes medications for diabetes including metformin. The ER patient was evaluated. Blood sugar was 49. Blood sugars have improved. Sodium 130, potassium 5.1, GFR 13. White count 11. Hemoglobin 9.9. BNP elevated. Chest x-ray unremarkable. Patient also had hypothermia. Patient to begin bear hugger. When I saw the patient the ER, he appeared comfortable. Patient seemed to be more appropriate. Patient was able follow commands. Family at bedside. Family not aware of what medications he is currently on. Allergies adhesive tape Adverse Reaction (Intermediate, Verified 07/04/16 15:25) Rash Home medications list reviewed: Yes Home Medications: Metoprolol Tartrate [Lopressor*] 12.5 mg PO BID 05/02/15 Multivitamin [Multivitamins] 1 each PO DAILY 07/05/15 Furosemide [Lasix] 40 mg PO Q6HR 07/04/16 Gabapentin [Gralise] 300 mg PO BEDTIME 07/04/16 Amlodipine [Norvasc*] 10 mg PO DAILY #30 tab 07/06/16 Aspirin 325 mg PO DAILY 12/22/17 Etodolac 300 mg PO BID PRN 12/22/17 Lisinopril 40 mg PO DAILY 12/22/17 Metformin HCl 1,000 mg PO BID 12/22/17 Triamcinolone 0.1% Crm [Kenalog 0.1% Cream*] 1 boris TOP BID 12/22/17 - Past Medical/Surgical History Diabetic: Yes -: Hyperlipidemia -: HTN -: Diabetes mellitus type 2 -: End-stage renal disease on dialysis -: History of myasthenia gravis -: Peripheral neuropathy -: Cataracts -: Stan cataracts -: broken leg 2006 -: finger surgery -: prostate surgery Psychosocial/ Personal History: Patient is . He has 3 children. - Family History Father -: Heart disease Mother -: Hypertension Sister -: Hypertension, Diabetes, Cancer, Kidney disease Brother -: Heart disease, Cancer - Social History Smoking Status: Never smoker Alcohol use: No CD- Drugs: No Caffeine use: Yes Place of Residence: Home Review of Systems General: Weakness, As per HPI Eyes: Unremarkable ENT: Unremarkable Respiratory: Unremarkable Cardiovascular: Unremarkable Gastrointestinal: Unremarkable Genitourinary: Unremarkable Musculoskeletal: Unremarkable Integumentary: Unremarkable Neurological: As per HPI Lymphatics: Unremarkable Physical Examination - Vital Signs Temperature: 97.1 F Blood Pressure: 106/60 Pulse: 55 Respirations: 17 - Physical Exam General: Alert, In no apparent distress, Oriented x2, Cooperative, Other ( Patient appears slightly confused but appropriate.) HEENT: Atraumatic, Normocephalic, Other (Dry mucous membranes noted.) Neck: Supple Respiratory: Clear to auscultation bilaterally, Normal air movement Cardiovascular: Normal pulses, Regular rate/rhythm Gastrointestinal: Normal bowel sounds, Soft and benign, Non-distended, No tenderness, No masses, No rebound, No guarding Musculoskeletal: No tenderness, No warmth Integumentary: No tenderness/swelling, No erythema, No warmth, No cyanosis, Other (Scab noted to the left clavicle area.) Neurological: Normal speech, Normal strength at 5/5 x4 extr, Normal tone, Normal affect - Studies Laboratory Data (last 24 hrs) 01/28/18 09:40: WBC 11.0 H, Hgb 9.9 L, Hct 31.1 L, Plt Count 412 H 01/28/18 09:40: Sodium 130 L, Potassium 5.1, BUN 38 H, Creatinine 4.50 H, Glucose 49 L*, Magnesium 2.0, Total Bilirubin 0.4, AST 31, ALT 25, Alkaline Phosphatase 134 H, Lipase 325 Assessment and Plan - Plan Impression: Altered mental status Hypoglycemia Hypothermia End-stage renal disease on dialysis. Recent hospitalization for nephrotic syndrome secondary to metformin. Hypertension Anemia likely of chronic disease Plan: Patient will be admitted. Will need to monitor blood sugars closely. Will provide glucose if required. Encourage oral intake. Will need to discuss with nephrology as the patient will require dialysis. Will provide bear hugger at this time. Will need to review home medications as the patient is unaware of what he takes. Will also need to address advance directives with family. Will need to obtain more information from Nephrology to further address. Discharge Plan: Home Plan to discharge in: 24 Hours - Advance Directives Does patient have a Living Will: No Does patient have a Durable POA for Healthcare: No Time Spent Managing Pts Care (In Minutes): 55
[2018-01-28] MEDS ORDERED: VANCOMYCIN 1 GM in NA CHLORIDE 0.9% 500 ML IVPB SCH (16:00)
--- NOTE | 2018-01-28 17:52 | EKG ---
Test Date: 2018-01-28 Test Time: 09:50:13 Pole Framer Machine: LIYAH MEASUREMENT RESULTS: Intervals: Rate: 59 KS: 184 QRSD: 106 QT: 484 QTc: 479 Lovejoy: P: 73 KS: 184 QRS: 10 T: 65 INTERPRETIVE STATEMENTS: Sinus bradycardia Otherwise normal ECG Compared to ECG 12/26/2017 12:37:38 Sinus rhythm no longer present ST (T wave) deviation no longer present Prolonged QT interval no longer present Electronically Signed On 01-28-18 17:50:51 CDT by Loyd Guy
[2018-01-28] MEDS: Levofloxacin 250mg IV 250 MG/50 ML BAG IV SCH (18:32)
[2018-01-28] MEDS: ENOXAPARIN 30 MG/0.3 ML SQ SCH (18:33)
--- NOTE | 2018-01-28 19:40 | CON ---
Date of Consultation: 01/28/2018 Consulting Physician: ER/Dr. Manley hospitalist. Reason For Consultation: Acidosis, electrolyte imbalance. End-stage renal disease. 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 The patient apparently mi ssed his dialysis on Friday, came to the hospital with altered mental status, found to have severe hy poglycemia, blood sugar down to the 30, and severe acidosis. Bicarb down to 8. For that reason, we have been consulted. The patient denied any recent change in his medication. The patient still has good urine output. Denies any fever or chills. Has marginal hyperkalemia of 5.1. Allergies: TO ADHESIVE. Home Medications: Include metoprolol 12.5, multivitamin, Lasix 40 mg q.6, gabapentin 300 at bedtime, Norvasc 10 mg daily, aspirin, etodolac 300 b.i.d., lisinopril 40 mg daily, metformin, triamcinolone. Past Medical History: Include, 1.Hyperlipidemia. 2.Hypertension. 3.Diabetes complicated with neuropathy and nephropathy. 4.End-stage renal disease, on hemodialysis. 5.Myasthenia gravis. 6.Cataract. 7.Prostate surgery. Family History: Positive for coronary artery disease and hypertension/diabetes. Social History: Denies smoking, denies drinking, denies drug abuse. Review of Systems: Head and Neck: No red eye. No ear pain. GI: Decreased intake. : No polyuria. No dysuria. No hematuria. SLAB INSTALLER: Not applicable. Respiratory: No shortness of breath. Cardiovascular: No chest pain. Endocrine: Hypoglycemia. No polydipsia. Musculoskeletal: No joint pain. Skin: No rash. Physical Examination: Vital Signs: When I saw the patient, the patient lying in bed. Blood pressure 106/60, pulse of 55. Afebrile. Chest: Clear to auscultation. Has eschar on the left lower neck. Has right IJ [facility]. Has been accessed by the ER. Heart: S1, S2. Systolic murmur. Abdomen: Soft, nontender. Chest: Clear to auscultation. Extremities: Plus edema. Neurologic: Alert. Nonfocal. Laboratory Data: WBC 11, H and H 9.9/31.1, platelets 412. ABG; pH 7.13, CO2 of 16, O2 141, base acc ess -22. Sodium 130, potassium 5.1, bicarb 8, chloride 96, BUN 38, creatinine 4.5, calcium of 9. CK of 74, albumin 3.2. INR 1.1. Assessment And Plan: End-stage renal disease with severe acidosis, marginal hyperkalemia. Missed di alysis. Last dialysis, last Friday, normal volume with hypoglycemia. 1.I am going to go ahead and arrange for urgent dialysis. 2.Start the patient on bicarb drip. Whenever the patient started on dialysis, we can discontinue th e bicarb drip and start the patient on the D10 at that time to maintain the blood sugar. 3.Marginal hyperkalemia. Going to be corrected on dialysis. 4.High anion gap, metabolic acidosis, secondary to end-stage renal disease/metformin use. Going to be corrected on dialysis as above. We will start the patient on bicarb drip to be discontinued after resuming the dialysis. 5.Hypoglycemia with marginal hyperkalemia and acidosis, raise the possibility of possible adrenal in sufficiency. I am going to send for cortisol level and will follow up the patient. 6.Hypoglycemia secondary possible to metformin and renal failure. Discontinue metformin. 7.Hypertension, currently blood pressure on the lower side. Discontinue all blood pressure medicati on. 8.Hyperkalemia, as above. 9.Diabetes, as by primary. 10.Hypotension shock, could be secondary to adrenal insufficiency, given the acidosis. Septic need to be ruled out. We will send for culture and we will empirically start the patient on treatment. Thank you Dr. Manley for allowing us to participate in the care of your patient. NILTON/DIEUDONNE Voice ID: [id number] Report ID: [id number]
[2018-01-28] MEDS: HYDROCORTISONE SUC 100 MG INJ IV SCH (21:09)
[2018-01-28] MEDS ORDERED: WATER FOR INJ,STERILE 10 ML ONE (21:13)
[2018-01-28] MEDS: DEXTROSE 10%-WATER 500 ML IV SCH (21:45)
[2018-01-28] MEDS ORDERED: DEXTROSE 10%-WATER 500 ML IV SCH (21:45)
[2018-01-28] MEDS ORDERED: NA CHLORIDE 0.9% 1,000 ML IV PRN (23:07)
[2018-01-28] MEDS ORDERED: MANNITOL 25% 12.5 GM/50 ML VIAL IV PRN (23:07)
[2018-01-28] MEDS ORDERED: ALBUMIN HUMAN 25% 50 ML IV SCH (23:45)
[2018-01-29] MEDS ORDERED: VANCOMYCIN 1 GM/250 ML BAG ONE (00:59)
[2018-01-29 05:21] LABS: Absolute Lymphocytes (CBC) 0.5 K/uL (0.7-4.9); Absolute Monocytes 0.8 K/uL (0.1-1.3); Absolute Neutrophil 6.2 K/uL (1.8-8.0); Basophils % 0.2 % (0-1.3); Hematocrit 25.5 % (39.6-49.0); MCH 29.9 pg (27.0-35.0); MCV 91.6 fL (80-100); Monocytes % 10.9 % (3.3-12.3); RBC Red Blood Cell Count 2.78 M/uL (4.33-5.43)
[2018-01-29 05:53] LABS: Bilirubin Total 0.6 mg/dL (0.2-1.0); Magnesium 1.9 mg/dL (1.8-2.4); Potassium 3.7 mmol/L (3.5-5.1)
[2018-01-29] MEDS: PANTOPRAZOLE 40MG TABLET PO SCH (07:21)
[2018-01-29] MEDS: INSULIN -REGULAR HUMAN 50 UNIT/0.5 ML ML SQ SCH ×4 (07:22→21:06)
[2018-01-29] MEDS: ASPIRIN EC 81 MG TAB PO SCH (08:22)
[2018-01-29] MEDS: HYDROCORTISONE SUC 100 MG INJ IV SCH ×3 (08:22→21:06)
[2018-01-29] MEDS ORDERED: WATER FOR INJ,STERILE 10 ML ONE (08:26)
[2018-01-29] MEDS: WATER FOR INJ,STERILE 10 ML IV SCH ×3 (08:40→21:06)
--- NOTE | 2018-01-29 09:02 | P.PN ---
Subjective Date of Service: 01/29/18 Primary Care Provider: [facility]; Nephrology-Dr. Grijalva Chief Complaint: Altered mental status Subjective: Doing well (Patient doing well and responding appropriately. Blood pressure stable.) Physical Examination - Vital Signs Temperature: 98.9 F Blood Pressure: 83/57 Pulse: 81 Respirations: 17 Pulse Ox (%): 100 - Physical Exam General: Alert, In no apparent distress, Cooperative HEENT: Atraumatic Neck: Supple Respiratory: Clear to auscultation bilaterally, Normal air movement Cardiovascular: Normal pulses, Regular rate/rhythm Gastrointestinal: Normal bowel sounds, Soft and benign, Non-distended, No tenderness, No masses, No rebound, No guarding Musculoskeletal: No tenderness, No warmth Integumentary: Other (Edema to the upper extremities noted.nonpitting edema to the lower extremities.) Neurological: Normal speech, Normal strength at 5/5 x4 extr, Normal tone, Normal affect - Studies Laboratory Data (last 24 hrs) 01/28/18 11:20: PT 13.2 H, INR 1.12, APTT 36.6 01/28/18 09:40: WBC 11.0 H, Hgb 9.9 L, Hct 31.1 L, Plt Count 412 H 01/28/18 09:40: Sodium 130 L, Potassium 5.1, BUN 38 H, Creatinine 4.50 H, Glucose 49 L*, Magnesium 2.0, Total Bilirubin 0.4, AST 31, ALT 25, Alkaline Phosphatase 134 H, Lipase 325 Medications List Reviewed: Yes Assessment & Plan Discharge Plan: Home Plan to discharge in: Greater than 2 days Physician Review Additional Text: Impression: Acute encephalopathy etiology unknown need to consider sepsis versus adrenal insufficiency versus acute on chronic renal failure. Metabolic acidosis Hypotension Hypothermia End-stage renal disease on dialysis History of hypertension Diabetes mellitus type 2 with hypoglycemia Patient bed-bound Plan: Will need to obtain more history from family. We also need to obtain his current medications at home. Patient previously hospitalized for sepsis, hypothermia, hypotension and acute renal failure requiring initiation of dialysis. Renal failure was suspected related to metformin. Patient with possible adrenal insufficiency. Patient on IV hydrocortisone. Patient also on bicarb drip due to metabolic acidosis. Case discussed at length with nephrology. Will continue to monitor closely. Blood pressure is slightly improved. Edema to the upper extremities noted. Will check venous Doppler to rule out DVT. Hypothermia resolved. Patient with end-stage renal disease on dialysis. Patient did get dialysis yesterday. Will discuss further with nephrology. Patient with diabetes with noted hypoglycemia. Will need to determine if the patient is getting adequate nutrition at home. Will also need to see if the patient is still continued on metformin as this was on his medication list. Will need to discuss with family about plan of care in the future. Patient is mainly bed-bound. Will need to consider long-term placement if to difficult to take care at home. Advanced directives address in detail with son yesterday. Time Spent Managing Pts Care (In Minutes): 55
[2018-01-29] MEDS ORDERED: VANCOMYCIN 1 GM in NA CHLORIDE 0.9% 250 ML IVPB SCH (10:00)
[2018-01-29] MEDS: DEXTROSE 10%-WATER 500 ML IV SCH ×2 (10:15→22:45)
--- NOTE | 2018-01-29 10:32 | RAD REPORT ---
EXAM DESCRIPTION: US - UPPER EXTREMITY VENOUS UNILATE - 01/29/2018 9:46 am CLINICAL HISTORY: edema r/o DVT Arm swelling. COMPARISON: No comparisons FINDINGS: Left upper extremity venous system was interrogated with Doppler technique. Normal flow, c ompressibility and augmentation was noted. There is no DVT present. IMPRESSION: No evidence of left upper extremity deep venous thrombosis.
[2018-01-29] MEDS: D5W 1,000 ML with NA BICARB 8.4% 150 MEQ IV SCH ×2 (12:09)
[2018-01-29] MEDS: ENOXAPARIN 30 MG/0.3 ML SQ SCH (17:12)
[2018-01-29] MEDS: Levofloxacin 250mg IV 250 MG/50 ML BAG IV SCH (17:13)
[2018-01-29 23:08] LABS: Potassium 3.4 mmol/L (3.5-5.1)
--- NOTE | 2018-01-30 02:35 | PN ---
Date of Progress Note: 01/29/2018 Chief Complaint: End-stage renal disease, acidosis, electrolyte abnormalities, fluid overload. History Of Present Illness: The patient is an 82-year-old man who initiated on chronic hemodialysis. 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 The patient was started on dialysis on Friday, Friday, Friday. He has diabetes mellitus. He missed dialysis on Friday and presented to the hospital because of generalized weakness. He was found to have hypoglycemia and severe metabolic acidosis with hyperkalemia of mild degree. The patient received dialysis yesterday and was started on sodium bicarbonate drip and treatment of metabolic acidosis. Bicarbonate level has improved somewhat today. He is undergoing dialysis for metabolic clearance and to obtain ultrafiltration. Review of Systems: The patient denies PND or orthopnea. Denies chest pain or palpitation. Physical Examination: Lungs: Clear to auscultation bilaterally. Heart: S1-S2. Abdomen: Soft, benign. Extremities: Slight edema. Impression And Plan: 1. End-stage renal disease and metabolic acidosis. The patient will have dialysis and plan is to reevaluate bicarbonate and stop sodium bicarbonate drip. 2. Hypoglycemia. The patient previously was taken off medication for diabetes. The patient is diet controlled at this point. 3. Hypertension continue metoprolol. Cardiac workup pending to rule out acute coronary syndrome. I spent total 36 min including 26 min to coordinate care plan. MOMO Voice ID: [id number] Report ID: [id number] SHANNAN
[2018-01-30] MEDS ORDERED: VANCOMYCIN 1 GM/250 ML BAG ONE (03:06)
[2018-01-30 05:14] LABS: Absolute Lymphocytes (CBC) 0.5 K/uL (0.7-4.9); Absolute Monocytes 1.4 K/uL (0.1-1.3); Absolute Neutrophil 9.1 K/uL (1.8-8.0); Basophils % 0.2 % (0-1.3); Hematocrit 27.4 % (39.6-49.0); Lymphocytes % 4.9 % (15.3-44.8); MCH 30.1 pg (27.0-35.0); MCV 88.8 fL (80-100); Monocytes % 12.8 % (3.3-12.3); RBC Red Blood Cell Count 3.09 M/uL (4.33-5.43)
[2018-01-30 05:31] LABS: Albumin 3.2 g/dL (3.4-5.0); Bilirubin Total 0.6 mg/dL (0.2-1.0); Magnesium 1.9 mg/dL (1.8-2.4); Protein, Total 6.6 g/dL (6.4-8.2)
[2018-01-30] MEDS: PANTOPRAZOLE 40MG TABLET PO SCH (06:29)
[2018-01-30] MEDS ORDERED: POTASSIUM 25 MEQ EFFERV TAB PO ONE (07:26)
[2018-01-30] MEDS: INSULIN -REGULAR HUMAN 50 UNIT/0.5 ML ML SQ SCH ×4 (07:30→20:51)
[2018-01-30] MEDS: SODIUM BICARB 325 MG TAB PO SCH ×2 (08:33→20:51)
[2018-01-30] MEDS: ASPIRIN EC 81 MG TAB PO SCH (08:34)
[2018-01-30] MEDS: WATER FOR INJ,STERILE 10 ML IV SCH ×3 (08:34→20:52)
[2018-01-30] MEDS: HYDROCORTISONE SUC 100 MG INJ IV SCH ×3 (08:34→20:52)
[2018-01-30] MEDS: DEXTROSE 10%-WATER 500 ML IV SCH (10:14)
[2018-01-30 11:18] LABS: Potassium 3.6 mmol/L (3.5-5.1)
--- NOTE | 2018-01-30 14:11 | P.PN ---
Subjective Date of Service: 01/30/18 Primary Care Provider: [facility]; Nephrology-Dr. Grijalva Chief Complaint: Altered mental status Subjective: Doing well Physical Examination - Vital Signs Temperature: 98.5 F Blood Pressure: 151/69 Pulse: 90 Respirations: 18 Pulse Ox (%): 100 - Physical Exam General: Alert, In no apparent distress, Oriented x3, Cooperative HEENT: Atraumatic Neck: Supple Respiratory: Clear to auscultation bilaterally, Normal air movement Cardiovascular: Normal pulses, Regular rate/rhythm Gastrointestinal: Normal bowel sounds, Soft and benign, Non-distended, No tenderness, No masses, No rebound, No guarding Musculoskeletal: No erythema, No tenderness, No warmth Integumentary: No erythema, No warmth, No cyanosis, Other (Swelling to the left upper extremity improved.) Neurological: Normal speech, Normal strength at 5/5 x4 extr, Normal tone, Normal affect - Studies Medications List Reviewed: Yes Assessment & Plan Discharge Plan: Home Plan to discharge in: 48 Hours Physician Review Additional Text: Impression: Acute encephalopathy etiology unknown need to consider sepsis versus adrenal insufficiency versus acute on chronic renal failure. Metabolic acidosis Hypotension Hypothermia End-stage renal disease on dialysis History of hypertension Diabetes mellitus type 2 with hypoglycemia Edema to extremities Patient bed-bound Plan: Overall patient has improved. Patient without any encephalopathy at this time. Will continue IV antibiotic therapy. So far blood cultures negative. Will repeat chest x-ray again today. Case discussed at length with nephrology yesterday. Will continue with dialysis. Patient on steroid treatment for adrenal insufficiency. Cortisol level pending. Venous Doppler of the upper extremity was done. No DVT noted. Renal function significantly improved. Hypothermia resolved. Continue to monitor blood pressure closely. May need to restart back his medication. Will continue monitor diabetes. Dietary consulted to further recommend dietary changes. Case discussed at length with case management. Will need to make sure arrangements for plan of care at home is arranged. Will discuss with geriatric social work professor further along with family to make sure patient is adequately care for. Time Spent Managing Pts Care (In Minutes): 55
[2018-01-30] MEDS: Levofloxacin 250mg IV 250 MG/50 ML BAG IV SCH (17:50)
[2018-01-30] MEDS: ENOXAPARIN 30 MG/0.3 ML SQ SCH (17:50)
[2018-01-31 05:29] LABS: Absolute Lymphocytes (CBC) 0.4 K/uL (0.7-4.9); Absolute Monocytes 1.3 K/uL (0.1-1.3); Absolute Neutrophil 11.7 K/uL (1.8-8.0); Basophils % 0.1 % (0-1.3); MCH 29.6 pg (27.0-35.0); MCV 88.2 fL (80-100); MPV 7.1 fL (7.6-11.3); Monocytes % 9.9 % (3.3-12.3); RBC Red Blood Cell Count 3.18 M/uL (4.33-5.43)
[2018-01-31] MEDS: PANTOPRAZOLE 40MG TABLET PO SCH (05:33)
[2018-01-31 05:54] LABS: Bilirubin Total 0.6 mg/dL (0.2-1.0); Magnesium 1.8 mg/dL (1.8-2.4); Protein, Total 6.3 g/dL (6.4-8.2)
[2018-01-31 06:03] LABS: Phosphorus 0.8 mg/dL (2.5-4.9)
[2018-01-31 06:11] LABS: Blood Morphology Comment NOT SEEN (NOT SEEN); Platelet Estimate ADEQ
[2018-01-31] MEDS: INSULIN -REGULAR HUMAN 50 UNIT/0.5 ML ML SQ SCH ×4 (08:43→21:00)
[2018-01-31] MEDS: HYDROCORTISONE SUC 100 MG INJ IV SCH ×2 (08:49→22:13)
[2018-01-31] MEDS: ASPIRIN EC 81 MG TAB PO SCH (08:49)
[2018-01-31] MEDS: WATER FOR INJ,STERILE 10 ML IV SCH ×3 (08:49→22:13)
[2018-01-31] MEDS ORDERED: MAGNESIUM SULFATE 1 gm IVPB 1 GM/100 ML BAG IV ONE (09:00)
[2018-01-31] MEDS ORDERED: POTASSIUM PHOS IN 0.9 % NACL 15 MMOL/250 ML BAG IV ONE (09:50)
--- NOTE | 2018-01-31 09:50 | PN ---
Date of Progress Note: 01/30/2018 Chief Complaint: End-stage renal disease on dialysis, severe metabolic acidosis , electrolyte abnormalities, fluid overload. History Of Present Illness: The patient received dialysis yesterday. 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 The patient was started on dialysis on Friday, Friday, Friday. During this admission, he remains in ICU. He was dialyzed with daily dialysis to control metabolic acidosis with hyperkalemia of mild degree. Yesterday, potassium was re-evaluated and hyperkalemia resolved, although metabolic acidosis remained severely advanced, and the patient was on sodium bicarbonate drip to treat metabolic acidosis, received second dialysis treatment to control acidosis and today, lab work is done and it showed improvement of sodium bicarbonate from 15 to 24 over last 24 hours. Azotemia is in good control. The patient was found to have hypoalbuminemia. He is advancing with p.o. intake. Fluid overload, edema. The patient received dialysis with ultrafiltration. Peripheral edema is somewhat improving. Review of Systems: The patient denies fever, chills. Denies PND, orthopnea. Physical Examination: Lungs: Few crackles at bases. Heart: S1, S2. Abdomen: Soft, benign. Extremities: Some edema in upper and lower extremities. Laboratory Data: Potassium today was 3.0. After replacement, potassium level improved to 3.6, bicarbonate remains at stable range from 24 to 25 today. Impression And Plan: 1. End-stage renal disease. Continue dialysis 3 times per week. Next dialysis tomorrow. 2. Metabolic acidosis. The patient will continue sodium bicarbonate tablet as IV bicarbonate drip is completed. The patient will continue dialysis for metabolic clearance and to control azotemia and metabolic acidosis. Adjust electrolytes according to lab results with dialysis. 3. Hypoglycemia. The patient was taken off diabetic medication. Continue to monitor glucose level. 4. Hypertension. Continue metoprolol. Cardiac workup was done to rule out acute coronary syndrome. NICANOR/DIEUODNNE Voice ID: [id number] Report ID: [id number] SHANNAN
[2018-01-31] MEDS ORDERED: POTASS/SODIUM PHOSPHATE 1 PKT POWD.PACK PO ONE (11:00)
--- NOTE | 2018-01-31 11:33 | P.PN ---
Subjective Date of Service: 01/31/18 Primary Care Provider: [facility]; Nephrology-Dr. Grijalva Chief Complaint: Altered mental status Subjective: Improving Physical Examination - Vital Signs Temperature: 97.1 F Blood Pressure: 163/79 Pulse: 85 Respirations: 20 Pulse Ox (%): 100 - Physical Exam General: Alert, In no apparent distress, Oriented x3, Cooperative HEENT: Atraumatic Neck: Supple Respiratory: Clear to auscultation bilaterally, Normal air movement Cardiovascular: Normal pulses, Regular rate/rhythm Gastrointestinal: Normal bowel sounds, Soft and benign, Non-distended, No masses , No rebound, No guarding Musculoskeletal: No erythema, No tenderness, No warmth Integumentary: No erythema, No warmth, No cyanosis Neurological: Normal speech, Normal strength at 5/5 x4 extr, Normal tone, Normal affect - Studies Medications List Reviewed: Yes Assessment & Plan Discharge Plan: Home Plan to discharge in: 24 Hours Physician Review Additional Text: Impression: Acute encephalopathy etiology unknown need to consider sepsis versus adrenal insufficiency versus acute on chronic renal failure. Metabolic acidosis Hypotension Hypothermia End-stage renal disease on dialysis History of hypertension Diabetes mellitus type 2 with hypoglycemia Edema to extremities Patient bed-bound Plan: Overall patient has improved. Patient was transferred to the ICU to the floor. What physical therapy ambulate patient. So far blood cultures negative. Doubt infectious process. There was some suspicion for adrenal insufficiency. IV steroid was decreased. Patient to get dialysis today. Will discuss with nephrology about the possibility of discharge soon. supervisor ship maintenance services was arranging transportation to and from home to dialysis. Will need to discuss plan of care with family. Will try to arrange for family discussion meeting. Patient will continue off diabetic medication due to hypoglycemia. Encourage oral intake. Hypotension resolved. Hypothermia resolved. Time Spent Managing Pts Care (In Minutes): 55
[2018-01-31 15:46] LABS: Phosphorus 2.1 mg/dL (2.5-4.9); Potassium 4.3 mmol/L (3.5-5.1)
[2018-01-31] MEDS: Levofloxacin 250mg IV 250 MG/50 ML BAG IV SCH (17:37)
[2018-01-31] MEDS: ENOXAPARIN 30 MG/0.3 ML SQ SCH (17:37)
--- NOTE | 2018-01-31 21:38 | PN ---
Date of Progress Note: 01/31/2018 Chief Complaint: End-stage renal disease on dialysis. Interval History: The patient presented to the hospital because of generalized weakness, was found to have metabolic acidosis, hyperkalemia of mild degree. He underwent dialysis in ICU, metabolic acidosis stabilized and sodium bicarbonate drip was completed. Azotemia remains in good control. The patient was found to have hypokalemia and hypophosphatemia today and received replacement with potassium phosphate infusion and potassium phosphate p.o. replacement. Phosphorus level and potassium levels have improved and remained within normal limits today. Hypoglycemia. The patient was taken off diabetic medication. Blood glucose stabilized. Mental status changes are gradually resolving. Review of Systems: Denies fever, chills. Physical Examination: Lungs: Clear to auscultation bilaterally. Heart: S1, S2. Abdomen: Soft, benign. Extremities: Minimal edema. Impression And Plan: 1. Mild fluid overload. Dialysis will be scheduled tomorrow with ultrafiltration. 2. Hypophosphatemia, treated. Monitor phosphorus level. 3. Hypokalemia. Replacement was ordered and potassium level improved. 4. Hypertension. Monitor blood pressure closely. Adjust blood pressure medication as needed. 5. Diabetes mellitus. Currently blood glucose is controlled. The patient is on diabetic diet and received a drip with dextrose for hypoglycemia. Hypoglycemia resolved. The patient was taken off diabetic medication by mouth. He is not a candidate for p.o. diabetic medication because of risk of hypoglycemia and lactic acidosis. I spent total 36 min including 26 min to coordinate care plan. NICANOR/DIEUDONNE Voice ID: [id number] Report ID: [id number] SHANNAN
[2018-02-01] MEDS: PANTOPRAZOLE 40MG TABLET PO SCH (06:10)
[2018-02-01 06:51] LABS: Magnesium 1.9 mg/dL (1.8-2.4); Phosphorus 1.6 mg/dL (2.5-4.9); Potassium 3.8 mmol/L (3.5-5.1)
[2018-02-01] MEDS: INSULIN -REGULAR HUMAN 50 UNIT/0.5 ML ML SQ SCH ×4 (08:40→20:39)
[2018-02-01] MEDS: HYDROCORTISONE SUC 100 MG INJ IV SCH (08:41)
[2018-02-01] MEDS: WATER FOR INJ,STERILE 10 ML IV SCH ×3 (08:42→20:38)
[2018-02-01] MEDS: ASPIRIN EC 81 MG TAB PO SCH (08:42)
[2018-02-01] MEDS ORDERED: POTASSIUM PHOS IN 0.9 % NACL 15 MMOL/250 ML BAG IV ONE (09:00)
[2018-02-01] MEDS ORDERED: POTASS/SODIUM PHOSPHATE 1 PKT POWD.PACK PO ONE (09:00)
--- NOTE | 2018-02-01 09:16 | P.PN ---
Subjective Date of Service: 02/01/18 Primary Care Provider: [facility]; Nephrology-Dr. Grijalva Chief Complaint: Altered mental status Subjective: Improving Physical Examination - Vital Signs Temperature: 97 F Blood Pressure: 139/76 Pulse: 92 Respirations: 18 Pulse Ox (%): 100 - Physical Exam General: Alert, In no apparent distress, Oriented x3, Cooperative HEENT: Atraumatic Neck: Supple Respiratory: Clear to auscultation bilaterally, Normal air movement Cardiovascular: Normal pulses, Regular rate/rhythm Gastrointestinal: Normal bowel sounds, Soft and benign, Non-distended, No tenderness, No masses, No rebound, No guarding Musculoskeletal: No erythema, No tenderness, No warmth Integumentary: No tenderness/swelling, No erythema, No warmth, No cyanosis Neurological: Normal speech, Normal strength at 5/5 x4 extr, Normal tone, Normal affect - Studies Medications List Reviewed: Yes Assessment & Plan Discharge Plan: Home Plan to discharge in: 24 Hours Physician Review Additional Text: Impression: Acute encephalopathy etiology unknown need to consider sepsis versus adrenal insufficiency versus acute on chronic renal failure. Metabolic acidosis, resolved Hypotension, resolved likely from medication Hypothermia, resolved End-stage renal disease on dialysis History of hypertension, off medication Diabetes mellitus type 2 with hypoglycemia, currently off medication Edema to extremities Patient bed-bound Plan: Overall patient has improved. Patient has done well. So far blood cultures negative. Patient on IV antibiotic therapy currently. Course all level still pending. Will reduce hydrocortisone. Blood pressure stable off medication. Patient has received dialysis. Will check A1c as the patient has been on a sliding scale. Will need to determine if patient will require medication at discharge. Still trying to determine what the patient is using at home. Will discuss with health and social care teacher tomorrow to make sure arrangements for transportation to and from home to dialysis is arrange. Will also need to determine if the patient will require home health. There has been some concern about his care at home. Will need to verify with family concerning this. Anticipate discharge tomorrow. Will discuss with nephrology about plan of care. Will need to consider discontinuing IV antibiotic therapy. Will also need to consider discontinuing IV steroids. Will discuss with nephrology to further address. Patient will likely need home health and possibly physical therapy at discharge. Time Spent Managing Pts Care (In Minutes): 55
--- NOTE | 2018-02-01 15:55 | RAD REPORT ---
EXAM DESCRIPTION: CT - Abdomen Pelvis Wo Contrast - 02/01/2018 2:57 pm CLINICAL HISTORY: Abdominal pain COMPARISON: CT June 2013 TECHNIQUE: Axial [address] imaging of the abdomen and pelvis was performed without IV contrast. No IV contrast was given because of allergy, abnormal renal function, patient refusal or physician re quest. No oral contrast All CT scans are performed using dose optimization technique as appropriate and may include automated exposure control or mA/KV adjustment according to patient size. FINDINGS: Small bilateral pleural effusions are present. Calcified pleural plaquing present. No arjun cardial thickening or effusion. The liver, spleen and pancreas show no suspicious findings on non-contrast imaging. Multiple gallston es are present. Active gallbladder process is not suspected. No biliary tree dilatation. No hydronephrosis or suspicious renal mass. No significant adrenal finding. Isodense renal masses an d pyelonephritis cannot be excluded in the absence of IV contrast. Urinary bladder is mostly contract ed limiting detail. No gastric dilatation or gastric wall thickening. No dilated large or small bowel loop. No free air, free fluid or inflammatory stranding. No mass or bulky lymphadenopathy. Patient has very pronounced m uscle atrophy in the pelvis. Right psoas atrophy also present. Disc and bony degenerative changes are present. IMPRESSION: Non-contrast enhanced CT abdomen and pelvis imaging show no acute picious finding. Above detailed findings are not significantly different from June. Full assessment is limited is the absence of IV contrast.
[2018-02-01] MEDS: ENOXAPARIN 30 MG/0.3 ML SQ SCH (16:58)
[2018-02-01] MEDS: Levofloxacin 250mg IV 250 MG/50 ML BAG IV SCH (17:00)
--- NOTE | 2018-02-02 02:04 | PN ---
Date of Progress Note: 02/01/2018 Chief Complaint: End-stage renal disease, on dialysis. History Of Present Illness: The patient is dialysis dependent. The patient was found to have hypophosphatemia and replacement was ordered. The patient has mild fluid overload. Dialysis will be rescheduled for tomorrow due to the fact the patient has persistent hypophosphatemia, he is requiring phosphorus replacement. The patient was taken off binders. Azotemia and electrolytes remain in acceptable control. Diabetes mellitus. Blood glucose is elevated. Hydrocortisone will be tapered off gradually. The patient was found to have leukocytosis. Urine culture, blood cultures were obtained and pending. CT scan of the abdomen without contrast will be ordered to rule out hydronephrosis. Review of Systems: Denies fever, chills. He is complaining of some abdominal discomfort. Physical Examination: Lungs: Clear to auscultation bilaterally. Heart: S1, S2. Abdomen: Soft, benign. Extremities: Slight edema in both legs. Laboratory Data: WBC 13.4, hemoglobin 9.4, platelet count is 292,000. Chemistry showed sodium 133, potassium 3.8, chloride 99, CO2 27, BUN 25, creatinine 2.1, glucose 242, phosphorus 1.6, calcium 7.9, magnesium 1.9. I/P Hypophosphatemia. Diet was changed to regular diet. Continue IV potassium replacement with potassium sulfate to treat hypophosphatemia. Potassium level has improved from 3.8 to 4.4. Monitor electrolytes closely. Dialysis will be scheduled for tomorrow. Leukocytosis. CT scan of the abdomen and pelvis without contrast was ordered to evaluate for possible etiology of abdominal pain. Noncontrast CT abdomen and pelvis did not show acute findings. No hydronephrosis or suspicious mass. No significant adrenal findings. Small bilateral pleural effusion is present. Liver, spleen, and pancreas showed no suspicious findings on noncontrast tests. Multiple gallstones are present. Active gallbladder process is not suspected. 1. Leukocytosis, pending workup for bacteremia done. Blood culture showed no growth. Patient was started on antibiotic of broad spectrum. 2. Hypophosphatemia. Continue replacement. 3. Mild peripheral edema. Continue low-sodium diet and p.o. fluid restriction. Consider to resume diuretic if urine output adequate. Monitor urine output and fluid balance 4. End-stage renal disease. Renal biopsy showed advanced chronic changes consistent with advanced kidney disease, 70% of global glomerulosclerosis was found on renal biopsy. Plan is to monitor renal panel , consider 24 hrs creatinine clearance . Dialysis will be done tomorrow. 5. Hypertension. Blood pressure in acceptable control. 6. Leukocytosis. Awaiting final culture from the left neck wound. Further antibiotic adjustment per primary team. I spent total 36 min including 25 min to coordinate care plan. NICANOR/DIEUDONNE Voice ID: [id number] Report ID: [id number] SHANNAN
[2018-02-02 04:11] LABS: Absolute Lymphocytes (CBC) 1.4 K/uL (0.7-4.9); Absolute Monocytes 1.4 K/uL (0.1-1.3); Absolute Neutrophil 10.7 K/uL (1.8-8.0); Basophils % 0.3 % (0-1.3); Eosinophils % 1.6 % (0-4.4); Hematocrit 27.2 % (39.6-49.0); Lymphocytes % 10.2 % (15.3-44.8); MCH 29.6 pg (27.0-35.0); MCV 86.6 fL (80-100); MPV 7.5 fL (7.6-11.3); Monocytes % 10.2 % (3.3-12.3); RBC Red Blood Cell Count 3.14 M/uL (4.33-5.43)
[2018-02-02 04:55] LABS: Magnesium 1.6 mg/dL (1.8-2.4); Potassium 3.7 mmol/L (3.5-5.1)
[2018-02-02] MEDS: PANTOPRAZOLE 40MG TABLET PO SCH (05:41)
[2018-02-02] MEDS ORDERED: MAGNESIUM SULFATE 1 gm IVPB 1 GM/100 ML BAG IV ONE (08:00)
[2018-02-02] MEDS: ASPIRIN EC 81 MG TAB PO SCH (08:22)
[2018-02-02] MEDS: HYDROCORTISONE SUC 100 MG INJ IV SCH (08:22)
[2018-02-02] MEDS: WATER FOR INJ,STERILE 10 ML IV SCH ×3 (08:22→21:00)
[2018-02-02] MEDS: METOPROLOL TAR 25 MG TAB PO SCH ×2 (08:23→22:21)
[2018-02-02] MEDS: INSULIN -REGULAR HUMAN 50 UNIT/0.5 ML ML SQ SCH ×4 (08:23→22:23)
--- NOTE | 2018-02-02 12:50 | P.PN ---
Subjective Date of Service: 02/02/18 Primary Care Provider: [facility]; Nephrology-Dr. Grijalva Chief Complaint: Altered mental status Subjective: Doing well Physical Examination - Vital Signs Temperature: 97.8 F Blood Pressure: 116/65 Pulse: 92 Respirations: 18 Pulse Ox (%): 100 - Physical Exam General: Alert, In no apparent distress, Oriented x3, Cooperative HEENT: Atraumatic Neck: Supple Respiratory: Clear to auscultation bilaterally, Normal air movement Cardiovascular: Normal pulses, Regular rate/rhythm Gastrointestinal: Normal bowel sounds, Soft and benign, Non-distended, No masses , No rebound, No guarding Musculoskeletal: No erythema, No tenderness, No warmth Integumentary: No tenderness/swelling, No erythema, No warmth, No cyanosis Neurological: Normal speech, Normal strength at 5/5 x4 extr, Normal tone, Normal affect - Studies Medications List Reviewed: Yes Assessment & Plan Discharge Plan: Home Plan to discharge in: 24 Hours Physician Review Additional Text: Impression: Acute encephalopathy etiology unknown need to consider sepsis versus adrenal insufficiency versus acute on chronic renal failure. Metabolic acidosis, resolved Hypotension, resolved likely from medication Hypothermia, resolved End-stage renal disease on dialysis History of hypertension, off medication Diabetes mellitus type 2 with hypoglycemia, currently off medication Edema to extremities Patient bed-bound Plan: Overall patient has improved. Patient has done well. So far blood cultures negative. Patient on IV antibiotic therapy currently. Case discussed at length with nephrology. Will plan for discharge but will need to make sure arrangements for transportation from home to dialysis is arranged. No need for antibiotic therapy at this time. Will also need to gather information and data on what he is taking at home as medications may be interfering with his current status. Will also discuss with social studies department chair about plan of care at home. Once this has been arranged will plan for discharge. Hypertension resolved likely from medication. Overall stable without medication. Hypothermia resolved. Patient with end-stage renal disease on dialysis. Patient will get dialysis today. Patient will continue with dialysis Mondays, Wednesdays and Fridays. Patient with diabetes with noted hypoglycemia upon admission. This has resolved. No need for diabetic medication at this time. Will make sure that the patient does not get metformin in the future. I will turn the service over to Dr. Perdomo tomorrow. I will go over plan of care with her. Time Spent Managing Pts Care (In Minutes): 55
[2018-02-02] MEDS: ENOXAPARIN 30 MG/0.3 ML SQ SCH (19:22)
[2018-02-02] MEDS: GABAPENTIN 100 MG CAP PO PRN (22:21)
[2018-02-03 04:28] LABS: Absolute Lymphocytes (CBC) 1.3 K/uL (0.7-4.9); Absolute Neutrophil 6.6 K/uL (1.8-8.0); Basophils % 0.8 % (0-1.3); Eosinophils % 5.6 % (0-4.4); Hematocrit 25.6 % (39.6-49.0); Lymphocytes % 13.6 % (15.3-44.8); MCH 29.8 pg (27.0-35.0); MCV 87.2 fL (80-100); Monocytes % 10.2 % (3.3-12.3); RBC Red Blood Cell Count 2.93 M/uL (4.33-5.43)
[2018-02-03 04:48] LABS: Magnesium 1.7 mg/dL (1.8-2.4); Potassium 4.2 mmol/L (3.5-5.1)
--- NOTE | 2018-02-03 04:58 | PN ---
Date of Progress Note: 02/02/2018 Chief Complaint: End-stage renal disease, on dialysis. History Of Present Illness: The patient is undergoing dialysis today. He has fluid overload, periph eral edema. The patient has persistent hypophosphatemia and had phosphorus replacement ordered for t his admission. The patient was taken off binders. Azotemia. Electrolytes remain in acceptable control. The patient has history of diabetic kidney dis ease. He was taken off diabetic oral hypoglycemic agent because of hypoglycemia. Blood glucose is s tabilizing. Leukocytosis. The patient had urine culture, blood culture obtained; and CT scan of the abdomen and pelvis did not show hydronephrosis. Review of Systems: Denies PND, orthopnea. Objective: Lungs: Clear to auscultation bilaterally. Heart: S1, S2. Abdomen: Soft, benign, nontender. Extremities: Edema in both legs. Laboratory Data: Chemistry showed sodium 133, potassium 3.8, chloride 99, CO2 27, BUN 25, creatinine 2.1, glucose 242, phosphorus 1.6, calcium 7.9, magnesium 1.9. Impression And Plan: 1.Hypophosphatemia. Continue treatment with IV potassium replacement as needed and potassium phosph ate to treat hypophosphatemia. 2.Hypokalemia, resolved. Monitor electrolytes closely. 3.Leukocytosis. Workup is pending to rule out underlying infection. CT scan of the abdomen and pel vis without contrast did not show hydronephrosis. White count is elevated, although the patient was treated with steroids. This may be steroid related. 4.Hypomagnesemia. Continue magnesium replacement. NICANOR/DIEUDONNE Voice ID: [id number] Report ID: [id number]
[2018-02-03] MEDS: PANTOPRAZOLE 40MG TABLET PO SCH (06:49)
[2018-02-03] MEDS ORDERED: MAGNESIUM SULFATE 1 gm IVPB 1 GM/100 ML BAG IV ONE ×2 (07:24→09:00)
[2018-02-03] MEDS: INSULIN -REGULAR HUMAN 50 UNIT/0.5 ML ML SQ SCH ×4 (07:30→23:15)
[2018-02-03] MEDS: WATER FOR INJ,STERILE 10 ML IV SCH ×2 (09:00→13:09)
[2018-02-03] MEDS ORDERED: VANCOMYCIN 1 GM in NA CHLORIDE 0.9% 500 ML IVPB ONE (09:18)
[2018-02-03] MEDS: METOPROLOL TAR 25 MG TAB PO SCH ×2 (09:26→23:12)
[2018-02-03] MEDS: GABAPENTIN 100 MG CAP PO PRN (09:26)
[2018-02-03] MEDS: ASPIRIN EC 81 MG TAB PO SCH (09:26)
[2018-02-03] MEDS ORDERED: VANCOMYCIN 1 GM in NA CHLORIDE 0.9% 250 ML IVPB SCH (10:00)
--- NOTE | 2018-02-03 16:49 | PN ---
Date of Progress Note: 02/03/2018 Subjective: The patient seen and examined. Chart reviewed and case discussed with RN, also osvaldo d with Dr. Faith. The patient states that he has wound on his neck for past couple of months. St ated it started as pimple to the nurse, however, he told me that this was from complications of oxyge n tubing on the side of his neck. His history is inconsistent. Review of Systems: Negative except as above. Medications: List reviewed. Code Status: Do not resuscitate. Objective: Vital Signs: Temperature 97.6, heart rate 78, blood pressure 144/63, respirations 16, O2 96% on room air. General: Awake, alert, oriented x3. Some mild distress. Elderly male, ill-appearing, obese, BMI 30 . CV: S1 and S2. No murmurs. Regular rate and rhythm. Peripheral pulses present. Respiratory: Moving air well bilaterally. No wheezing or stridor. Gastrointestinal: Abdomen is soft, nontender, nondistended. Positive bowel sounds. Extremities: No clubbing, cyanosis, edema. Neurologic: Nonfocal. Skin: The patient has large ulcerated foul-smelling wound on the anterior aspect of the left neck an d clavicle area. No drainage. Laboratory Data: Sodium 135, potassium 4.2, chloride 102, CO2 26, BUN 20, creatinine 1.4, glucose 14 5, calcium 7.7, and magnesium 1.7. WBC 9.4, H and H 8.7, 25.6, platelets 265, neutrophils 69%. Bloo d cultures, no growth in 5 days. Wound culture from the left neck shows MRSA. Assessment: An 82-year-old male with: 1.Acute metabolic encephalopathy, likely secondary to sepsis and possible acute on chronic renal marcial lure, improved. 2.Metabolic acidosis, resolved. 3.Hypotension, likely secondary to medications, which have been adjusted. 4.Hypothermia, resolved. 5.Methicillin-resistant staphylococcus aureus from the neck. We will add vancomycin. Surgical cons ultation for possible debridement. Blood cultures, no growth to date. 6.History of hypertension. Medications have been taken off due to hypotension. 7.End-stage renal disease, on hemodialysis. We will continue as scheduled. Appreciate Dr. Grijalva 's input. 8.Diabetes mellitus type 2 with hypoglycemia, currently off medications. 9.Obesity. Body mass index 30. SA/RICHL Voice ID: [id number] Report ID: [id number]
[2018-02-03] MEDS: ENOXAPARIN 30 MG/0.3 ML SQ SCH (17:47)
--- NOTE | 2018-02-04 02:17 | PN ---
Date of Progress Note: 02/03/2018 Subjective: The patient found to have MRSA bacteremia secondary to skin infection. Physical Examination: Vital Signs: Blood pressure 133/75, pulse of 86. Chest: Clear to auscultation. Heart: S1, S2. Systolic murmur. Abdomen: Soft, nontender. Extremities: +1 edema. Laboratory Data: H and H 8.7/25.6. Sodium 135, potassium 4.2, bicarb 26, BUN 20, creatinine 1.4, ca lcium 7.7, magnesium 1.7. Current Medications: The patient on its include: 1.Vancomycin. 2.Aspirin. 3.Lovenox. 4.Metoprolol 12.5. 5.Gabapentin. 6.Pantoprazole. Assessment And Plan: 1.End-stage renal disease secondary to acute kidney injury. The patient showing some recovery. I d o sequential today then we will watch the patient for recovery as outpatient. 2.Hypertension, controlled, optimal. Continue utilize the blood pressure for more ultrafiltration. 3.Anasarca secondary to cardiorenal nephrotic range of proteinuria. We will continue ultrafiltratio n. 4.Skin infection with methicillin-resistant Staphylococcus aureus. We will start the patient on van comycin. We will follow up with the primary. 5.Diabetes as by primary. NILTON/DIEUDONNE Voice ID: [id number] Report ID: [id number]
[2018-02-04 04:08] LABS: Albumin 2.2 g/dL (3.4-5.0); Phosphorus 1.9 mg/dL (2.5-4.9); Potassium 4.4 mmol/L (3.5-5.1)
[2018-02-04] MEDS: PANTOPRAZOLE 40MG TABLET PO SCH (05:31)
[2018-02-04 05:51] LABS: Absolute Lymphocytes (CBC) 1.1 K/uL (0.7-4.9); Absolute Monocytes 1.1 K/uL (0.1-1.3); Basophils % 0.7 % (0-1.3); Eosinophils % 8.4 % (0-4.4); Hematocrit 25.7 % (39.6-49.0); MCH 29.7 pg (27.0-35.0); MCV 89.1 fL (80-100); MPV 8.4 fL (7.6-11.3); Monocytes % 9.6 % (3.3-12.3); RBC Red Blood Cell Count 2.88 M/uL (4.33-5.43)
[2018-02-04] MEDS: INSULIN -REGULAR HUMAN 50 UNIT/0.5 ML ML SQ SCH ×4 (07:30→21:00)
[2018-02-04] MEDS: ASPIRIN EC 81 MG TAB PO SCH (09:00)
[2018-02-04] MEDS: METOPROLOL TAR 25 MG TAB PO SCH ×2 (10:07→22:00)
[2018-02-04] MEDS ORDERED: NA CHLORIDE 0.9% 500 ML ONE (10:23)
[2018-02-04] MEDS ORDERED: LIDOCAINE 2% MPF 5 ML VIAL ONE (10:56)
[2018-02-04] MEDS ORDERED: FENTANYL CITR 100 MCG/2 ML ONE (10:56)
[2018-02-04] MEDS ORDERED: PROPOFOL 200 MG/20 ML VIAL IV ONE ×2 (10:56→11:14)
[2018-02-04] MEDS ORDERED: BUPIVACAINE 0.5% PF 10 ML VIAL ONE (11:00)
[2018-02-04] MEDS ORDERED: Mastisol Adhesive Liq ONE (11:05)
--- NOTE | 2018-02-04 11:31 | P.BOP ---
Preoperative diagnosis: necrotic ulcer left neck Postoperative diagnosis: same Primary procedure: Excisional debridement subQ of infected necrotic ulcer left neck Secondary procedure: cm Estimated blood loss: <10cc Specimen: necrotic tissue, culture Findings: infected necrotic ulcer left neck Anesthesia: MAC Complications: None Transferred to: Recovery Room Condition: Good
--- NOTE | 2018-02-04 15:02 | CON ---
Date of Consultation: 02/03/2018 Reason For Consult: Nonhealing wound, necrotic wound over the left neck area. History Of Present Illness: This is the case of a male who is in the hospital for medical problems i ncluding altered mental status, found to have a large necrotic ulcer on the left lower neck region, r ight just above the clavicle with foul-smelling, and a surgical consult was obtained for debridement. The patient is not sure how that happened. He thinks it was done by pressure from a strap he has i n that area to hold the oxygen, but information from him is somehow nonspecific. Review of Systems: Ten points otherwise unremarkable. Family History: Heart disease, hypertension, diabetes. Medical Problems: Include cataracts, renal failure on dialysis, diabetes, hypertension. Past Surgical History: Surgeries include finger surgery, prostate surgery. Social History: He does not smoke, he does not drink alcohol. Physical Examination: General: The patient is awake and alert. HEENT: Pupils anicteric. Neck: Supple. At the base of the neck just above the clavicle, the patient has about a 15 x 6 cm op en wound with necrotic tissue. It is infected with some fluctuance present that needs to be debrided . There is some smelling coming from the area. Etiology of that is unknown. Chest: Bilateral breath sounds. The patient has a catheter on the right side. Abdomen: Soft and depressible. No guarding or rebound. Laboratory Data: Blood work shows a WBC count of 9.4 with hemoglobin of 8.7. INR 1.12. Glucose is 198. Assessment: This is an 82-year-old patient with necrotic ulcer on the left neck region needs to be s urgical debrided. Benefits, alternatives, and risks were explained to the patient, which include but are not limited to infection, bleeding, damage to adjacent structures, anesthesia complication, nonh ealing wound, MT, and even . He will require wound care. He understood. He will be kept n.p.o . after midnight. SONAL/DIEUDONNE Voice ID: [id number] Report ID: [id number]
--- NOTE | 2018-02-04 16:23 | PN ---
Date of Progress Note: 02/04/2018 Subjective: The patient doing the same. The patient underwent debridement of the lower neck, upper chest on the left eschar of the skin. Objective: Vital Signs: When I saw the patient, blood pressure 128/51, pulse of 67. Afebrile. Chest: Clear to auscultation. Heart: S1, S2. Systolic murmur. Abdomen: Soft. Nontender. Extremities: Plus edema. Laboratory Data: WBC 11.2, H and H 8.5/25.7, platelets of 217. Sodium 133, potassium 4.4, bicarb 24 , BUN 27, creatinine 1.8, calcium 7.6, phosphorus 1.9, magnesium of 2. PTH 111. Current Medications: The patient on its include: 1.Aspirin. 2.Vancomycin. 3.Lovenox. 4.Metoprolol 12.5. 5.Gabapentin. 6.Zofran. 7.Pantoprazole. Assessment And Plan: 1.End-stage renal disease. Possible recovery. I am going to continue to arrange for the dialysis. We will keep watching creatinine, predialysis. 2.Anasarca. Continue ultrafiltration. 3.Hypertension, controlled, optimal. Continue current treatment. 4.Methicillin-resistant staphylococcus aureus infection. Continue vancomycin to be arranged with dialysis. We will follow up with Surgery for debridement. PEYMAN Voice ID: [id number] Report ID: [id number]
[2018-02-04] MEDS: ENOXAPARIN 30 MG/0.3 ML SQ SCH (17:44)
--- NOTE | 2018-02-04 20:53 | PN ---
Date of Progress Note: 02/04/2018 Subjective: The patient is seen and examined. Chart reviewed and case discussed with RN and Dr. Carito hernandez. The patient went for debridement today. He did well postoperatively. He did not have any co mplications. The patient will continue dialysis as scheduled. I spoke with Dr. Grijalva. We will s et up IV vancomycin as outpatient with dialysis. Review of Systems: Negative except as above. Medications: List reviewed. Physical Examination: Vital Signs: Temperature 97.4, heart rate 71, blood pressure 165/79, respirations 20, O2 98% on room air. General: Awake, alert, oriented x3, not in acute distress. Elderly male, obese, BMI 30. CV: S1, S2. No murmurs. Regular rate and rhythm. Peripheral pulses present. Respiratory: Moving air well bilaterally. No wheezing. Abdomen: Abdomen is soft, nontender, nondistended. Positive bowel sounds. Extremities: No clubbing, cyanosis. Pedal edema present. Neurologic: Nonfocal. Skin: The patient has a wound on the left lateral neck, bandaged. Clean, dry, intact. Laboratory Data: Sodium 133, potassium 4.4, chloride 103, CO2 24, BUN 27, creatinine 1.8, glucose 16 6, calcium 7.6, phosphorus 1.9, magnesium 2. Albumin 2.2, PTH 111. WBC 11.2, H and H 8.5 and 25.7, platelets 217, neutrophils 71%. Blood cultures, no growth to date. Final wound culture from the lef t neck showing MRSA. Assessment And Plan: An 82-year-old male with: 1.Acute metabolic encephalopathy secondary to sepsis and acute on chronic renal failure, resolved. 2.Metabolic acidosis. 3.Hypotension secondary to medications adjusted. 4.Hypothermia, resolved. 5.Methicillin-resistant Staphylococcus aureus from neck wound, status post debridement of necrotic u lcer. We will continue vancomycin with dialysis. 6.History of hypertension, stable. The patient who had been hypotensive, has been taken off his med ications. 7.End-stage renal disease, on hemodialysis. We will continue nephrology on board. 8.Diabetes mellitus type 2 with hypoglycemia, off medications now. 9.Obesity, BMI 30. SA/MODL Voice ID: [id number] Report ID: [id number]
[2018-02-05 04:07] LABS: HBsAG Nonreactive (Nonreactive)
[2018-02-05] MEDS: PANTOPRAZOLE 40MG TABLET PO SCH (06:16)
[2018-02-05 06:39] LABS: Absolute Lymphocytes (CBC) 1.2 K/uL (0.7-4.9); Absolute Monocytes 1.1 K/uL (0.1-1.3); Absolute Neutrophil 6.8 K/uL (1.8-8.0); Basophils % 0.5 % (0-1.3); Eosinophils % 9.4 % (0-4.4); Hematocrit 24.6 % (39.6-49.0); Lymphocytes % 12.1 % (15.3-44.8); MCH 29.9 pg (27.0-35.0); MCV 87.7 fL (80-100); MPV 8.4 fL (7.6-11.3); Monocytes % 10.8 % (3.3-12.3); RBC Red Blood Cell Count 2.81 M/uL (4.33-5.43)
[2018-02-05 06:50] LABS: Albumin 2.1 g/dL (3.4-5.0); Phosphorus 2.3 mg/dL (2.5-4.9); Potassium 3.6 mmol/L (3.5-5.1)
[2018-02-05] MEDS: INSULIN -REGULAR HUMAN 50 UNIT/0.5 ML ML SQ SCH ×4 (07:30→21:00)
[2018-02-05] MEDS: METOPROLOL TAR 25 MG TAB PO SCH ×2 (10:05→22:00)
[2018-02-05] MEDS: ASPIRIN EC 81 MG TAB PO SCH (10:07)
[2018-02-05] MEDS: FUROSEMIDE 40 MG/4 ML VIAL IV SCH (11:08)
--- NOTE | 2018-02-05 12:54 | RAD REPORT ---
EXAM DESCRIPTION: Alberto Single View02/05/2018 12:25 pm CLINICAL HISTORY: Shortness of breath COMPARISON: January 28, 2018 FINDINGS: The lungs appear clear of acute infiltrate. The heart is normal size. Central venous cath eter remains in place. Calcified lung granulomas are noted. IMPRESSION: No acute abnormalities displayed
[2018-02-05] MEDS: ENOXAPARIN 30 MG/0.3 ML SQ SCH (17:00)
--- NOTE | 2018-02-05 22:12 | PN ---
Subjective: The patient seen and examined. Chart reviewed and case discussed with RN and Dr. Grijalva. The patient doing well. Denies any complaints. Complaining about his sc[facility]. I explained to him that he needs to contact the scooter company. Review of Systems: Negative except as above. Medications: List reviewed. Physical Examination: Vital Signs: Temperature 97.5, heart rate 89, blood pressure 174/72, respirations 18, O2 99% on room air. General: Awake, alert, oriented x3. Elderly male, obese, BMI 30. CV: S1, S2. No murmurs. Peripheral pulses present. Respiratory: Moving air well bilaterally. No wheezing. Gastrointestinal: Abdomen is soft, nontender, nondistended. Positive bowel sounds. Extremities: No clubbing, cyanosis. The patient does have some pedal edema. Neurologic: Nonfocal. Skin: The patient has a wound on the left lateral neck, bandaged, no drainage. Clean, dry, and intact. Laboratory Data: Sodium 133, potassium 3.6, chloride 101, CO2 23, BUN 31, creatinine 2, glucose 160, calcium 7.8, phosphorus 2.3, albumin 2.1. WBC 10.1, H and H 8.4 and 24.6, platelets 288, neutrophils 67%. Wound culture from the left neck growing MRSA. Blood cultures negative. Final chest x-ray shows lungs are clear of infiltrate, intravenous catheter in place, calcified lung granulomas, personally reviewed. Assessment And Plan: An 82-year-old male with: 1. Acute metabolic encephalopathy secondary to sepsis and renal failure, resolved. 2. Metabolic acidosis. 3. Sepsis, resolved. 4. Hypertension, medications adjusted. 5. Hypothermia, resolved. 6. Methicillin-resistant Staphylococcus aureus from neck wound, status post debridement of necrotic ulcer. Continue vancomycin, adjusted dose now will be daily. 7. End-stage renal disease, on hemodialysis. Per Nephrology we will not be going to dialyse him as of right now. His kidney function has improved. 8. History of hypertension, came in hypotensive. 9. Diabetes mellitus type 2 with hypoglycemia. Medications discontinued. 10. Obesity, BMI 30. Plan: Set up LTAC referral for wound care, long-term IV antibiotics, and to monitor kidney function. /DIEUDONNE Voice ID: [id number] Report ID: [id number] MTDD
[2018-02-05] MEDS ORDERED: VANCOMYCIN 1.5 GM in NA CHLORIDE 0.9% 500 ML IVPB SCH (23:00)
[2018-02-06] MEDS ORDERED: VANCOMYCIN 1 GM/VIAL ONE (00:23)
[2018-02-06] MEDS ORDERED: VANCOMYCIN 500 MG/VIAL ONE (00:24)
[2018-02-06] MEDS ORDERED: NA CHLORIDE 0.9% 500 ML ONE (00:25)
--- NOTE | 2018-02-06 04:30 | PN ---
Date of Progress Note: 02/05/2018 Subjective: The patient status post debridement of the lower neck wound, tolerated well, growing MRS Nathaniel. Objective: Vital Signs: Blood pressure 153/70, pulse of 85. Chest: Faint crackles on the base. Heart: S1, S2. Regular. Abdomen: Soft, nontender. Extremities: +1 edema. Laboratory Data: WBC 10.1, H and H 8.4/24.6, platelets 288. Sodium 133, potassium 3.6, bicarb 23, B UN 31, creatinine 2, GFR 32, calcium 7.8, phosphorous 2.3. Current Medications: The patient on its include: 1.Tylenol. 2.Vancomycin. 3.Metoprolol 12.5. 4.Pantoprazole. 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 The patient sh owing some recovery, I am going to hold on the dialysis today, and we will start the patient 24-hour creatinine clearance, and we will follow up. 2.We will start the patient on Lasix. 3.Hypertension, controlled, not optimal. 4.Methicillin-resistant Staphylococcus aureus cellulitis. 5.Diabetes. Will follow up with primary. 6.Cellulitis. Continue vancomycin, we will change the vancomycin to daily. The patient is going to require treatment for long time, we will consider LTAC. PEYMAN Voice ID: [id number] Report ID: [id number]
[2018-02-06] MEDS: PANTOPRAZOLE 40MG TABLET PO SCH (06:30)
[2018-02-06] MEDS: INSULIN -REGULAR HUMAN 50 UNIT/0.5 ML ML SQ SCH ×4 (07:30→21:00)
[2018-02-06] MEDS ORDERED: VANCOMYCIN 1 GM in NA CHLORIDE 0.9% 250 ML IVPB SCH (09:00)
[2018-02-06] MEDS: ASPIRIN EC 81 MG TAB PO SCH (09:00)
[2018-02-06] MEDS: METOPROLOL TAR 25 MG TAB PO SCH ×2 (09:00→21:29)
[2018-02-06] MEDS: FUROSEMIDE 40 MG/4 ML VIAL IV SCH (09:28)
[2018-02-06 10:27] LABS: Absolute Lymphocytes (CBC) 1.3 K/uL (0.7-4.9); Absolute Monocytes 1.3 K/uL (0.1-1.3); Absolute Neutrophil 6.3 K/uL (1.8-8.0); Basophils % 0.9 % (0-1.3); Eosinophils % 9.6 % (0-4.4); Lymphocytes % 13.5 % (15.3-44.8); MCH 29.2 pg (27.0-35.0); MCV 87.6 fL (80-100); MPV 8.1 fL (7.6-11.3); Monocytes % 12.7 % (3.3-12.3); RBC Red Blood Cell Count 2.86 M/uL (4.33-5.43)
[2018-02-06 11:18] LABS: Phosphorus 3.2 mg/dL (2.5-4.9); Potassium 4.1 mmol/L (3.5-5.1)
[2018-02-06 14:50] LABS: Urine Appearance CLEAR; Urine Bilirubin NEGATIVE (NEG); Urine Blood 1+ (NEG); Urine Color YELLOW; Urine Glucose 1+ (NEG); Urine Protein 2+ (NEG); Urine Urobilinogen 0.2 mg/dL (0.2-1.0)
[2018-02-06 15:03] LABS: Urine Bacteria <20 /HPF (NONE SEEN); Urine Microscopic Reflex ORDER UMIC; Urine RBC NONE SEEN /HPF (NONE SEEN)
[2018-02-06 15:04] LABS: Urine Culture Reflex Order REFLEXED
--- NOTE | 2018-02-06 16:21 | DS ---
Date of Discharge: 02/06/2018 Consultants: Dr. Faith, General Surgery, Dr. To and Dr. Grijalva with Nephrology. Procedures: On 02/04/2018, debridement of left lateral neck wound necrotic ulcer. Pathology shows l eft necrotic wound, excision shows gangrenous necrosis. Admitting Diagnoses: 1.Altered mental status. 2.Hypoglycemia. 3.Hypothermia. 4.End-stage renal disease, on hemodialysis. 5.Recent hospitalization for nephrotic syndrome secondary to metformin. 6.Essential hypertension. 7.Anemia of chronic disease. Discharge Diagnoses: 1.Acute metabolic encephalopathy secondary to sepsis and renal failure, resolved. 2.Metabolic acidosis, resolved. 3.Sepsis, resolved. 4.Methicillin-resistant Staphylococcus aureus, neck wound status post debridement, on vancomycin for 2 weeks. 5.End-stage renal disease. He is on hemodialysis, currently on hold due to improvement in kidney fu nction. 6.Essential hypertension. Had been hypotensive. Medications adjusted. 7.Hypothermia, resolved. 8.Recent hospitalization for nephrotic syndrome secondary to metformin. Metformin has been disconti nued. 9.Diabetes mellitus type 2 with hypoglycemia, non-insulin dependent. Metformin discontinued. 10.Obesity, BMI 30. Hospital Course: The patient is an 82-year-old male, came into the hospital for altered mental statu s, found to be hypoglycemic. Sugar was 30. The patient was started on dialysis about 2 weeks ago. He does take metformin. He did have nephrotic syndrome because of diabetes. He was resuscitated. H e was found to be septic and acidotic, given IV fluids. His temperature improved. His white count i mproved as well. He did have a wound on his left neck, which was debrided by Dr. Faith and was fo und to have MRSA. Blood cultures were negative. The patient was seen by Nephrology, Dr. Valentine To, and his dialysis was continued. The patient's kidney function did improve and he will slowly be weaned off dialysis. The patient was receiving vancomycin for his MRSA due to his wou nd and his chronic kidney disease as well as IV antibiotics. He was referred to [facility]. The patient w as excepted to [facility] and was discharged to the LTAC in a stable condition. Activity: Fall precautions. Diet: Renal, diabetic diet. Followup: Follow up with PCP in 1 week. Follow up with peoplesoft analyst, Dr. Grijalva in 2 weeks. Retu rn to ER for worsening condition. Follow up with general surgeon, Dr. Faith in 7-10 days. Medications: As per medication reconciliation list. The patient's blood pressure medications have b een adjusted. He will no longer be on metformin due to nephrotic syndrome and hypoglycemia. We will continue vancomycin for 2 weeks. Weekly CBC, CMP, ESR and CRP. Repeat wound cultures after antibiotics are completed. Adjust vanc do se according to trough and renal function. Total time spent discharging the patient was 38 minutes. For physical exam findings, please see prog ress note dictated on the day of discharge. /DIEUDONNE Voice ID: [id number] Report ID: [id number]
[2018-02-06] MEDS: ENOXAPARIN 30 MG/0.3 ML SQ SCH (18:06)
[2018-02-06] MEDS: VANCOMYCIN 1 GM in NA CHLORIDE 0.9% 250 ML IVPB SCH (18:53)
--- NOTE | 2018-02-06 22:42 | PN ---
Date of Progress Note: 02/06/2018 Subjective: The patient was seen and examined. Chart reviewed and case discussed with RN and Dr. Elder. The patient was discharged yesterday, however refused to go to [facility] once transport a rrived, complaining that he did not know he was being transferred there. However, during grand round s with insurance case manager, social studies department chair, nurse solar installation manager, and primary nurse present at the bedside, the meseret ent was given his options and he was agreeable for [facility] transfer yesterday. Regardless, the patie nt states that he will not go to that facility, he wants to go home as he wants to spend time with hi s grandson. He understands that he needs wound care, IV antibiotics long-term, and most beneficial f or him would be a facility where he can be watched and monitored closely in terms of his wounds, his kidney function, and his IV antibiotics; however, he refused. He understands the risks. Review of Systems: Negative except as above. Medications: List reviewed. Physical Examination: Vital Signs: Temperature 98, heart rate 72, blood pressure 165/78, respirations 18, O2 98% on room a ir. General: Awake, alert, oriented x3. Not in any acute distress. Elderly male, obese, BMI 30. CV: S1, S2. Peripheral pulses present. Respiratory: Moving air well bilaterally. No wheezing. Gastrointestinal: Abdomen is soft, nontender, nondistended. Positive bowel sounds. Extremities: No clubbing or cyanosis. Trace pedal edema. Neurologic: Nonfocal. Laboratory Data: Sodium 134, potassium 4.1, chloride 102, CO2 21, BUN 33, creatinine 2, glucose 143, calcium 7.3, phosphorus 3.2. WBC 9.9, H and H 8.4 and 25, platelets 328, neutrophils 63.3%. Left n krishna wound growing MRSA. Blood cultures negative. Assessment And Plan: An 82-year-old male with: 1.Acute metabolic encephalopathy, resolved. 2.Sepsis, resolved. 3.Metabolic acidosis, resolved. 4.Methicillin-resistant Staphylococcus aureus from neck wound, status post debridement of wound. Co ntinue IV antibiotics for 2 week. 5.End-stage renal disease, improving, likely able to come off hemodialysis. 6.Essential hypertension. Had been hypertensive. Medications have been adjusted. 7.Hypothermia, resolved. 8.Recent hospitalization for nephrotic syndrome, secondary to metformin. Metformin discontinued. 9.Diabetes mellitus type 2 with hypoglycemia, non-insulin dependent. 10.Obesity, body mass index 30. Plan: To discharge home with home health after IV antibiotics set up. UBALDO Voice ID: [id number] Report ID: [id number]
--- NOTE | 2018-02-07 01:28 | PN ---
Date of Progress Note: 02/06/2018 Subjective: The patient is doing well. The patient is status post debridement. The patient's last dialysis was Friday. Physical Examination: Vital Signs: When I saw the patient, blood pressure 160/79, pulse ox 79. Chest: Faint crackles on the base. Dressing on the upper chest. Heart: S1, S2. Systolic murmur. Abdomen: Soft, nontender. Extremities: Plus edema, more prominent edema on the upper extremity. Laboratory Data: WBC 9.9, H and H 8.4/25. Sodium 134, potassium 4.1, bicarb 21 , BUN 33, creatinine 2, calcium 7.3, and phosphorous 3.2. Current Medications: The patient on include; 1. Tylenol. 2. Lovenox. 3. Hydralazine. 4. Metoprolol. 5. Zofran. 6. Vancomycin. Assessment And Plan: 1. Acute kidney injury secondary to toxic acute tubular necrosis, poor perfusion, ATN. Slightly on the wet side, I am going to start the patient on Lasix 40 mg daily and we will monitor the patient. I am going to keep holding on the dialysis for the time being. 2. Hypertension, controlled, not optimal. We will add Lasix. 3. Skin infection with methicillin-resistant Staphylococcus aureus, status post debridement. Continue vancomycin. We will change it to every 24 hours. We will follow up GFR for the recovery . The patient refused to go to LTAC. We will arrange for home health. PICC line cannot be inserted today, and we will follow up. PEYMAN Voice ID: [id number] Report ID: [id number] MTDD
[2018-02-07 05:15] LABS: Arterial Blood Carboxyhemoglob 1.5 % (0-1.5); Blood Gas Oxyhemoglobin 68.4 % (94-97); Blood O2 Saturation 69.7 % (92-98.5)
[2018-02-07] MEDS ORDERED: LIDOCAINE 1% MPF 5 ML VIAL ONE (05:33)
[2018-02-07] MEDS: PANTOPRAZOLE 40MG TABLET PO SCH (06:36)
[2018-02-07 07:00] LABS: Albumin 2.1 g/dL (3.4-5.0); Phosphorus 3.5 mg/dL (2.5-4.9); Potassium 3.5 mmol/L (3.5-5.1)
[2018-02-07 07:07] VITALS: BMI 30.9
[2018-02-07] MEDS: INSULIN -REGULAR HUMAN 50 UNIT/0.5 ML ML SQ SCH ×4 (07:30→21:00)
--- NOTE | 2018-02-07 09:13 | RAD REPORT ---
EXAM DESCRIPTION: RAD - Chest Single View - 02/07/2018 1:22 am CLINICAL HISTORY: Device placement PICC line placement COMPARISON: 02/06/2008 FINDINGS: A PICC line has been inserted with its tip in the region of the distal left brachiocephal ic vein. The lungs appear clear of acute infiltrate. The heart is normal size. Right central venous line remai ns in place IMPRESSION: PICC line with its tip in the region of the distal left brachiocephalic vein
[2018-02-07] MEDS: METOPROLOL TAR 25 MG TAB PO SCH ×2 (10:27→21:53)
[2018-02-07] MEDS: ASPIRIN EC 81 MG TAB PO SCH (10:29)
[2018-02-07] MEDS: FUROSEMIDE 40 MG/4 ML VIAL IV SCH (10:30)
--- NOTE | 2018-02-07 12:14 | PN ---
Date of Progress Note: 02/07/2018 History: The patient seen and examined. Chart reviewed and case discussed with RN. The patient is doing well. Has declined SNF yesterday. No further complaints. Review of Systems: Negative except as above. Medications: List reviewed. Physical Examination: Vital Signs: Temperature 97, heart rate 78, blood pressure 159/74, respirations 18, O2 99% on room a ir. General: Awake, alert, oriented x3. Elderly male, obese. CV: S1, S2. Peripheral pulses present. Respiratory: Moving air well bilaterally. No wheezing. Gastrointestinal: Abdomen is soft, nontender, nondistended. Positive bowel sounds. Extremities: No clubbing, cyanosis, some trace pedal edema. Neuro: Nonfocal. Laboratory Data: Sodium 135, potassium 3.5, chloride 103, CO2 21, BUN 32, creatinine 2, glucose 145, calcium 7.7, phosphorus 3.5, albumin 2.1. WBC 9.9, H and H 8.4, 25, platelets 328, neutrophils 63%. Wound cultures, Staph aureus, MRSA. Assessment: An 82-year-old male with: 1.Acute metabolic encephalopathy, resolved secondary to sepsis. 2.Sepsis, resolved secondary to wound infection. 3.Metabolic acidosis, resolved. 4.Methicillin-resistant Staphylococcus aureus in the wound from the neck, status post debridement. We will continue IV antibiotics for total of 2 weeks. The patient refused LTAC and SNF, wants to go home only. He understands the risks. Home Health being set up. 5.End-stage kidney disease, improving. Hemodialysis on hold, as his kidney has improved. 6.Essential hypertension, medications adjusted due to hypotension. 7.Hypothermia, resolved. 8.Diabetes mellitus type 2 with hypoglycemia, non-insulin dependent, off metformin due to previous h ospitalization and nephrotic syndrome. 9.Obesity, BMI 30. Plan: Discharge home with Home Health once IV antibiotic is set up. /DIEUDONNE Voice ID: [id number] Report ID: [id number]
--- NOTE | 2018-02-07 13:14 | CON ---
History Of Present Illness: This is an 82-year-old male, I was consulted for wound to the the left n krishna side and also with sepsis. The patient was initially brought in on 01/28/2018 for altered mental status. The patient's sugar was found to be 30 at that time. The patient has been recently started on dialysis for 2 weeks prior to admission. Has significant past medical history of hypertension, d iabetes mellitus, hyperlipidemia, end-stage renal disease, myasthenia gravis, bilateral cataract, pro state surgery, finger surgery. Denies any headache, nausea, vomiting, chest pain, abdominal pain, co nstipation, or diarrhea. Past Medical History: As per HPI. Surgical History: Nondrinker. Family History: Noncontributory, except heart problems, hypertension, diabetes mellitus, and kidney diease. Medications: Vancomycin. See MARS for other medication. Allergies: ADHESIVE TAPE, METFORMIN. Review of Systems: A 10-point review was performed. Physical Examination: General: This is an 82-year-old male, lying in bed, not in any acute cardiopulmonary distress. Vital Signs: Temperature 97, pulse 77, respiration 18, blood pressure 153/72. HEENT: Unremarkable. Neck: Supple. Lungs: Basal crackles. Heart: S1, S2. Regular. Abdomen: Soft, nontender. Bowel sounds positive. Extremity: Left arm with PICC line, right subclavian area with the Bipin catheter in place. Neck site shows large wound with possible fascia and slough noted in that area. Laboratory Data: Shows WBC 9.9, hemoglobin 8.4, platelets 324. Chemistry shows sodium 135, potassiu m 3.5, chloride 103, bicarb 21, BUN 32, creatinine 2, glucose 145. Microdata is growing Staph aureus and MRSA in the neck wound site. Abdominal CT done on 02/01/2018 shows no acute finding. Assessment And Plan: An 82-year-old male who was initially admitted for hypoglycemia, altered mental status. Recently started on dialysis. Neck wound. Recommend to apply Medihoney to the wound site daily and have wound care clinic follow the patient. Continue antibiotic and supportive care. Consi johnathan long-term acute care for the patient's infected wound. We will follow the patient closely. NF/DIEUDONNE Voice ID: [id number] Report ID: [id number]
[2018-02-07] MEDS: ENOXAPARIN 30 MG/0.3 ML SQ SCH (18:41)
--- NOTE | 2018-02-07 19:25 | PN ---
Date of Progress Note: 02/07/2018 Subjective: The patient was admitted with septic shock. Renal failure. Used to be on dialysis. We thought the patient recovered infarction. The patient nonoliguric. We have done 24-hour creatinine clearance, last dialysis 4 days ago. Laboratory Data: H and H 8.25. Sodium 135, potassium 3.5, bicarb 21, BUN 32, creatinine 2. Urine creatinine of 20, volume of 900. Creatinine clearance only 6. Objective: Vital Signs: When I saw the patient, blood pressure of 158/75, pulse of 76. Afebrile. Chest: Faint crackles bilateral base. Heart: S1, S2. Regular. Abdomen: Soft. Nontender. Extremity: Trace edema, more prominent edema +1 to 2 on the upper extremity. Medications: Current medications the patient on its include, 1.Lasix 40 mg daily. 2.Albumin. 3.Gabapentin. 4.Hydralazine. 5.Metoprolol. 6.Pantoprazole. 7.Vancomycin 1 g q.24. Assessment And Plan: 1.Acute kidney injury, glomerular filtration rate less than 6. We will resume the patient on dialys is. We will dialyze the patient tomorrow, and the patient already set up for outpatient dialysis, TT S, at [facility], at 12:30, transportation has been arranged. 2.Hypertension, controlled, optimal. We will follow up blood pressure after dialysis. 3.Anasarca, secondary to renal failure. Continue diuresis. We will challenge tomorrow. 4.Cellulitis, status post debridement. Methicillin-resistant Staphylococcus aureus. Continue vanco mycin daily. Tomorrow after dialysis, we will switch it to 1 g after each dialysis, and we will foll ow up. Case discussed with Dr. Snow and with the patient, verbalized understanding. PEYMAN Voice ID: [id number] Report ID: [id number]
[2018-02-08] MEDS: PANTOPRAZOLE 40MG TABLET PO SCH (05:44)
[2018-02-08] MEDS: VANCOMYCIN 1 GM in NA CHLORIDE 0.9% 250 ML IVPB SCH (05:44)
[2018-02-08 07:07] LABS: Albumin 2.2 g/dL (3.4-5.0); Phosphorus 3.9 mg/dL (2.5-4.9); Potassium 3.3 mmol/L (3.5-5.1)
[2018-02-08] MEDS: INSULIN -REGULAR HUMAN 50 UNIT/0.5 ML ML SQ SCH ×4 (07:30→21:00)
[2018-02-08] MEDS: MEDIHONEY 44 ML TOPICAL TUBE TOP SCH (09:00)
[2018-02-08] MEDS ORDERED: VANCOMYCIN 1 GM in NA CHLORIDE 0.9% 250 ML IVPB SCH (10:00)
[2018-02-08] MEDS: ASPIRIN EC 81 MG TAB PO SCH (10:40)
[2018-02-08] MEDS: METOPROLOL TAR 25 MG TAB PO SCH ×2 (10:40→21:34)
[2018-02-08] MEDS: FUROSEMIDE 40 MG/4 ML VIAL IV SCH (10:42)
--- NOTE | 2018-02-08 20:42 | PN ---
Date of Progress Note: 02/08/2018 Subjective: The patient is feeling the same. Still have the swelling in the upper extremities. Objective: Vital Signs: Blood pressure 152/70, and afebrile. Chest: Faint crackles bilateral base. Heart: S1, S2. Systolic murmur. Abdomen: Soft. Nontender. Extremity: No edema on the lower extremity. Edema on the upper extremity. Had right IJ cath and left PICC line. Labs: WBC of 9.9, H and H of 8.4/25. Sodium 135, potassium 3.3, bicarb 23, BUN 30, creatinine 2, GFR of 32, calcium 8, phosphorus 3.9. Current Medications: The patient on include, 1. Lasix 40 daily. 2. Tylenol. 3. Gabapentin. 4. Mannitol. 5. Metoprolol 12.5. 6. Pantoprazole. 7. Vancomycin. Assessment And Plan: 1. End-stage renal disease. Unfortunately, we did not confirm that he has recovered. Creatinine clearance 24 hours it is just 7. We will resume dialysis. The patient is going to be dialyzed today, then he can be dialyzed Friday, , and Friday. 2. Hypertension, controlled. I can adjust his blood pressure medication. We will follow up. 3. Anemia of chronic kidney disease. Continue Epogen. 4. 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 5. Cellulitis with methicillin-resistant Staphylococcus aureus. The patient is going to receive the vancomycin after dialysis. No need to set up for outpatient IV antibiotic. We will follow up. The patient cleared from the renal standpoint for discharge planning. PEYMAN Voice ID: [id number] Report ID: [id number]
[2018-02-08] MEDS: ENOXAPARIN 30 MG/0.3 ML SQ SCH (21:34)
[2018-02-08 22:08] VITALS: O2SAT 100
[2018-02-09] MEDS: PANTOPRAZOLE 40MG TABLET PO SCH (05:59)
--- NOTE | 2018-02-09 06:37 | DS ---
Date of Discharge: 02/08/2018 Consultants: Dr. Grijalva with Nephrology; Dr. Hendrickson with Infectious Disease; Dr. Faith, General Surgery; Dr. Mon, Nephrology. Procedures: 02/04/2018, debridement of left lateral neck wound necrotic ulcer. Pathology showing ne crotic wound and excision showing gangrenous necrosis. Admitting Diagnoses: 1.Altered mental status. 2.Hypoglycemia. 3.Hypothermia. 4.End-stage renal disease, on hemodialysis. 5.Recent hospitalization for nephrotic syndrome secondary to metformin. 6.Essential hypertension. 7.Anemia of chronic disease. Discharge Diagnoses: 1.Acute metabolic encephalopathy secondary to sepsis and renal failure, resolved. 2.Metabolic acidosis, resolved. 3.Sepsis, resolved. 4.MRI today of the neck wound status post debridement on vancomycin for a total of 2 weeks. 5.End-stage kidney disease, on hemodialysis. 6.Essential hypertension. Had been hypotensive, medications adjusted. 7.Hypothermia, resolved. 8.Recent hospitalization for nephrotic syndrome secondary to metformin. Metformin discontinued. 9.Diabetes mellitus type 2 with hyperglycemia, non-insulin dependent. 10.Obesity, BMI 30. Hospital Course: Please see previous discharge summary for details. However, the patient was initia lly set to be discharged on 02/06/2018, however, refused to go to LTAC and arrangements had to be mad e for chair time adjustment, transportation to and from dialysis, and IV vancomycin with dialysis. T he patient initially had improvement in his kidney function and was not going to require dialysis. H owever, 24-hour urine showed worsening creatinine clearance and therefore was re-initiated on dialysi s. The patient is an 82-year-old male who was admitted to the hospital for altered mental status. H e had some hypoglycemia and he was hypotensive. The patient's metformin was discontinued. His blood pressure medications were also adjusted. He did have a wound on his left neck, which was debrided b y Dr. Faith, found to have MRSA. Blood cultures did not show any growth. He was started on IV an tibiotics. The patient continued on dialysis. However, with improvement in kidney function it was h eld. However, after 24-hour urine, he was recommended to be restarted on dialysis. The patient was initially referred to LTAC in [facility], however, last minute refused due to previous bad ex perience and therefore had to be set up with Home Health as he was no longer to be on dialysis. Wright claudy, with hemodialysis being resumed, vancomycin will be given with dialysis. Activity: Fall precautions. Diet: Renal diabetic diet. Followup: Follow up with primary care physician in 1 week. Follow up with computer security coordinator, Dr. Preston olivares in 2 weeks. Return to ER for worsening condition. Follow up with Dr. Faith, surgeon in 7 to 10 days for wound check. Medications: As per medication reconciliation list. The patient will need weekly CBC, CMP, ESR, and CRP. Repeat wound cultures after antibiotics are completed. Total time spent discharging the patient was 40 minutes. Physical Examination: General: Awake, alert, and oriented. No acute distress. CV: S1, S2. No murmurs. Respiratory: Moving air well bilaterally. Abdomen: Soft, nontender, nondistended. Positive bowel sounds. Extremities: No clubbing, cyanosis. There is no peripheral edema. Neurologic: Nonfocal. SA/MODL Voice ID: [id number] Report ID: [id number]
[2018-02-09] MEDS: INSULIN -REGULAR HUMAN 50 UNIT/0.5 ML ML SQ SCH ×2 (07:30→11:30)
[2018-02-09] MEDS: MEDIHONEY 44 ML TOPICAL TUBE TOP SCH (08:40)
[2018-02-09] MEDS: METOPROLOL TAR 25 MG TAB PO SCH (08:41)
[2018-02-09] MEDS: FUROSEMIDE 40 MG/4 ML VIAL IV SCH (08:42)
[2018-02-09] MEDS: ASPIRIN EC 81 MG TAB PO SCH (08:42)
[2018-02-09 17:08] VITALS: BP 147/68; TEMP 97.4
--- NOTE | 2018-02-09 18:18 | PN ---
Date of Progress Note: 02/09/2018 Subjective: The patient seen and examined. Chart reviewed and case discussed with RN. The patient did not finish up his dialysis and vancomycin till later on at night, therefore, was unable to be dis charged home yesterday. The patient is doing well otherwise. Review of Systems: Negative except as above. Medications: List reviewed. Physical Examination: Vital Signs: Temperature 97.6, heart rate 74, blood pressure 155/76, respirations 18, O2 99% on room air. General: Awake, alert, oriented x3, not in any acute distress. Elderly male. CV: S1, S2. No murmurs. Respiratory: Moving air well bilaterally. Gastrointestinal: Abdomen is soft, nontender, nondistended. Positive bowel sounds. Extremities: No clubbing, cyanosis. Trace edema. Neurologic: Nonfocal. Skin: The patient has left anterior neck wound clean, dry, intact. Laboratory Data: Glucose 152, 182. Microbiology: Wound growing MRSA. Assessment And Plan: 1.Acute metabolic encephalopathy secondary to sepsis and renal failure, resolved. 2.Metabolic acidosis, resolved. 3.Sepsis, resolved. 4.Methicillin-resistant Staphylococcus neck wound, status post debridement. 5.End-stage kidney disease, on hemodialysis. 6.Essential hypertension, stable. 7.Hypothermia, resolved. 8.Recent hospitalization for nephrotic syndrome secondary to metformin. 9.Diabetes mellitus type 2 with hypoglycemia, non-insulin dependent, now with hyperglycemia, metform in discontinued. 10.Obesity, BMI 30. Plan: Discharge home to continue hemodialysis and vancomycin for a total of 14 days. /DIEUDONNE Voice ID: [id number] Report ID: [id number]
--- NOTE | 2018-02-09 19:51 | PN ---
Subjective: The patient lying in bed. Denies any headache, nausea, vomiting, chest pain, abdominal pain, constipation, or diarrhea. Objective: Vital Signs: Temperature 97, pulse 74, respiration 18, blood pressure 155/76. Lungs: Basal crackles. Heart: S1, S2. Regular. Abdomen: Soft, nontender. Bowel sounds positive. Extremities: No edema. Laboratory Data: WBC 9.9, hemoglobin 8.4, platelets are 328. Chemistry shows sodium 135, potassium 3.3, chloride 102, bicarb 23, BUN 30, creatinine 2, glucose 124. Wound cultures from the neck site s hows the Staph aureus and MRSA. Assessment/plan: Sepsis. Neck wound shows methicillin-resistant Staphylococcus aureus and staph aur eus. Continue antibiotic and supportive care. Medihoney to the neck site. We will follow the patie nt as needed. DOMO/DIEUDONNE Voice ID: [id number] Report ID: [id number]
--- NOTE | 2018-02-10 02:44 | PN ---
Date of Progress Note: 02/09/2018 Chief Complaint: End-stage renal disease, on dialysis. Subjective: The patient has renal biopsy done which showed significant glomerulosclerosis and inters titial chronic changes. The patient underwent re-evaluation for creatinine clearance and his creatin ine clearance is less than 10. The patient resumed dialysis, received dialysis on Friday. He will continue dialysis on Friday, , and Friday. Review of Systems: The patient denies PND or orthopnea. Physical Examination: Vital Signs: Blood pressure 150/70, heart rate 80. Chest: Diminished breath sounds at bases. Heart: S1, S2. No pericardial friction rub. Abdomen: Soft, benign, nontender. Extremities: Minimal edema. Laboratory Data: Sodium 131, potassium 3.3, bicarbonate 33, BUN 30, creatinine 2, calcium 8.2, phosp horus 3.9. Impression And Plan: 1.End-stage renal disease. The patient will continue dialysis 3 times per week; on Friday, , and Friday. 2.Hypertension, controlled. 3.Anemia of chronic kidney disease. Continue Epogen. 4.Cellulitis with methicillin-resistant Staphylococcus aureus. The patient will receive vancomycin with dialysis. NICANOR/MODL Voice ID: [id number] Report ID: [id number]
--- NOTE | 2018-02-12 21:34 | OP ---
Date of Procedure: 02/04/2018 Surgeon: Jarred Faith MD Preoperative Diagnosis: Necrotic ulcer, left neck. Postoperative Diagnosis: Necrotic ulcer, left neck. Procedure: Excisional debridement down to subcu of infected necrotic left leg ulcer 15 x 6 cm. Anesthesia: MAC plus local. Indications: This is the case of a male who comes to us with necrotic ulcer and infected left neck r egion. It goes down to deep subcutaneous tissue. They want surgical debridement, so I fully explain ed to the patient the benefits, alternatives, and risks of debridement which include but are not limi kristin to infection, bleeding, damage to adjacent structures, anesthesia complication, nonhealing wound, PR, and even . He also understands this may not relieve his symptoms. He might need more than one surgical intervention. He will require wound care. He signed a consent. Description Of Procedure: The patient was brought to the operating room, placed in supine position. Anesthesia was done without complication. A time-out was called. Left neck was prepped and draped in usual sterile fashion. Local anesthesia was applied over the area followed by sharp incision of t he necrotic tissue with a sharp knife. All the tissue was removed. The area was irrigated. Th e area was packed with wet-to-dry dressing after hemostasis was obtained. The patient tolerated the procedure well. The patient was sent to recovery room in stable condition. CAROLINA Voice ID: [id number] Report ID: [id number]
== END 2018-02-09 16:54 | disposition home or self-care (01) | DRG 853 ==
LOC: ER 09:10 → ERHOLD 10:29 → 2ND 12:53 → 3RD-ICU 17:17 → OBSVTOIN 20:13 → 4TH 01-31 01:30
PROVIDERS: ADMIT Family Medicine; ATTEND Family Medicine
PROC: 5A1D70Z Performance of Urinary Filtration, Intermittent, Less than 6 Hours Per Day (ICD-10-PCS; 2018-01-28)
PROC: 5A1D70Z Performance of Urinary Filtration, Intermittent, Less than 6 Hours Per Day (ICD-10-PCS; 2018-01-29)
PROC: 5A1D70Z Performance of Urinary Filtration, Intermittent, Less than 6 Hours Per Day (ICD-10-PCS; 2018-02-02)
PROC: 5A1D70Z Performance of Urinary Filtration, Intermittent, Less than 6 Hours Per Day (ICD-10-PCS; 2018-02-03)
PROC: 0JB50ZZ Excision of Left Neck Subcutaneous Tissue and Fascia, Open Approach (ICD-10-PCS; principal; 2018-02-04 11:15)
PROC: 5A1D70Z Performance of Urinary Filtration, Intermittent, Less than 6 Hours Per Day (ICD-10-PCS; 2018-02-08)
DX: A41.9 Sepsis, unspecified organism (principal); N18.6 End stage renal disease; R57.8 Other shock; G93.41 Metabolic encephalopathy; E87.2 Acidosis; L03.221 Cellulitis of neck; N17.9 Acute kidney failure, unspecified; I12.0 Hypertensive chronic kidney disease with stage 5 chronic kidney disease or end stage renal disease; E11.9 Type 2 diabetes mellitus without complications; E78.5 Hyperlipidemia, unspecified; T68.XXXA Hypothermia, initial encounter; E11.22 Type 2 diabetes mellitus with diabetic chronic kidney disease; G62.9 Polyneuropathy, unspecified; E11.649 Type 2 diabetes mellitus with hypoglycemia without coma; D63.1 Anemia in chronic kidney disease; G70.00 Myasthenia gravis without (acute) exacerbation; E87.5 Hyperkalemia; E83.39 Other disorders of phosphorus metabolism; E87.6 Hypokalemia; E83.42 Hypomagnesemia; E66.9 Obesity, unspecified; L98.491 Non-pressure chronic ulcer of skin of other sites limited to breakdown of skin; B95.62 Methicillin resistant Staphylococcus aureus infection as the cause of diseases classified elsewhere; Z99.2 Dependence on renal dialysis; Z74.01 Bed confinement status
CPT/HCPCS: 36415; 71045; 74176; 80048; 80053; 80069; 80076; 80202; 81003; 81015; 82533; 82550; 82553; 82570; 82805; 82962; 83036; 83690; 83735; 83880; 83970; 84100; 84132; 84145; 84484; 85025; 85610; 85730; 86317; 86704; 86706; 87040; 87070; 87075; 87077; 87086; 87088; 87186; 87205; 87340; 88304; 90935; 93005; 93971; 97163; 99285; J1650; J1720; J2150; J3010; J3370; J3475; P9047